=== PATIENT | female | born 1930 | race Caucasian/White ===

== ENCOUNTER 2016-11-06 18:16 | Emergency (ER) | payer MEDICARE, OTHER ==
[2016-11-06 18:29] VITALS: BP 140/72
[2016-11-06] MEDS ORDERED: Sodium Chloride 0.9% 10 ML Syringe FLUSH PRN (18:58)
--- NOTE | 2016-11-06 19:00 | EDM.PDOC ---
ED HPI GENERAL MEDICAL PROBLEM - General Chief Complaint: Cardiovascular Problem Stated Complaint: NECK PAIN/HEAD PAIN FAST HEARTBEAT Time Seen by Provider: 11/06/16 18:59 Source of Information: Reports: Patient History Limitations: Reports: No Limitations - History of Present Illness INITIAL COMMENTS - FREE TEXT/NARRATIVE: 86 year old female presents with her daughter for evaluation and treatment of chest palpitations. Reports these have been going on for the last 2-3 weeks and are becoming more frequent. She reports episodes of chest palpations lasting about 1 hour each. They resolve on their own. Last episode was about 2-3 hours prior to arrival in the ER. Prior to that she had an episode about 2-3 days ago. She has not been seen for these episodes as of yet. She describes these episodes as her "heart racing" and feeling weak. Denies any chest pain, shortness of breath, nausea, vomiting or syncope. Patient also complains of neck pain radiating into her occipital region of her head. Patient has a history of TIA and intercranial hemorrhage. She is currently on coumadin. Is scheduled to have her INR checked on Tuesday. Patient reports arthritis in her neck. She acknowledges that the neck pain is likely from the arthritis radiating into her head. She took a tylenol arthritis at 14: 00 today. headache Pain Score (Numeric/FACES): 3 - Related Data Allergies Allergy/AdvReac Type Severity Reaction Status Date / Time No Known Allergies Allergy Verified 11/06/16 18:30 Home Meds: Home Meds Acetaminophen [Tylenol Arthritis Pain] 2 tab PO BID PRN 04/25/14 [History] Calcium Carbonate/Vitamin D3 [Calcium 600 + Vit D Tablet] 1 tab PO DAILY [History] Furosemide [Lasix] 1 tab PO DAILY PRN 04/25/14 [History] LORazepam 1 tab PO BEDTIME PRN 04/25/14 [History] Levothyroxine [Synthroid] 75 mcg PO DAILY 04/25/14 [History] Lisinopril [Zestril] 1 tab PO DAILY 04/25/14 [History] Metoprolol Tartrate 1 tab PO DAILY 04/25/14 [History] Omeprazole 1 tab PO DAILY 04/25/14 [History] Propylene Glycol/Peg 400 [Systane 0.3-0.4% Eye Drops] 1 drop EYEBOTH BID [History] Simvastatin [Zocor] 1 tab PO BEDTIME 04/25/14 [History] carBAMazepine [Carbamazepine] 300 mg PO BID 04/25/14 [History] cycloSPORINE [Restasis] 1 drop EYEBOTH BID 04/25/14 [History] Warfarin [Coumadin] 0 mg PO DAILY 11/06/16 [History] traMADol [Ultram] 50 mg PO Q6H PRN #20 tablet 11/06/16 [Rx] Past Medical History HEENT History: Reports: Impaired Vision Cardiovascular History: Reports: Arrhythmia, Blood Clots/VTE/DVT, Hypertension Gastrointestinal History: Reports: GERD Musculoskeletal History: Reports: Arthritis Neurological History: Reports: TIA, Other (See Below) Other Neuro History: hx of "brain bleed" Psychiatric History: Reports: Anxiety Endocrine/Metabolic History: Reports: Hypothyroidism Hematologic History: Reports: Other (See Below) Other Hematologic History: is on coumadin - Past Surgical History HEENT Surgical History: Reports: Tonsillectomy Other HEENT Surgeries/Procedures: cornea surgery Female Surgical History: Reports: Breast Biopsy, Hysterectomy Social & Family History - Family History Family Medical History: Noncontributory - Tobacco Use Smoking Status *Q: Never Smoker Second Hand Smoke Exposure: No - Caffeine Use Caffeine Use: Reports: Coffee Caffeine Use Comment: states around 4 cups a day - Alcohol Use Days Per Week of Alcohol Use: 0 - Recreational Drug Use Recreational Drug Use: No ED ROS GENERAL - Review of Systems Review Of Systems: See Below Constitutional: Reports: Weakness Respiratory: Reports: Shortness of Breath Cardiovascular: Reports: Lightheadedness, Palpitations. Denies: Chest Pain, Syncope GI/Abdominal: Denies: Abdominal Pain, Nausea, Vomiting Musculoskeletal: Reports: Neck Pain Neurological: Reports: Headache. Denies: Syncope ED EXAM, GENERAL - Physical Exam Exam: See Below Exam Limited By: No Limitations General Appearance: Alert, WD/WN, No Apparent Distress Eye Exam: Bilateral Eye: EOMI, Normal Inspection, PERRL Ears: Normal External Exam Ear Exam: Bilateral Ear: TM normal Nose: Normal Inspection Throat/Mouth: Normal Inspection, Normal Lips, Normal Voice, No Airway Compromise Head: Atraumatic, Normocephalic Neck: Normal Inspection, Supple, Non-Tender, Limited Range of Motion Respiratory/Chest: No Respiratory Distress, Lungs Clear, Normal Breath Sounds Cardiovascular: Normal Peripheral Pulses, Regular Rate, Rhythm, No Murmur Peripheral Pulses: 2+: Radial (L), Radial (R), Dorsalis Pedis (L), Dorsalis Pedis (R) GI/Abdominal: Soft, Non-Tender Neurological: Alert, Oriented, Normal Cognition Psychiatric: Normal Affect, Normal Mood Skin Exam: Warm, Dry, Normal Color EKG INTERPRETATION EKG Date: 11/06/16 Time: 18:55 Rhythm: NSR Rate (Beats/Min): 80 [place]: Normal P-Wave: Present QRS: Normal ST-T: Normal QT: Normal EKG Interpretation Comments: NSR at 80 with frequent PACs. Diffuse early repolarization pattern. 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 No acute changes. Reviewed by myself and Dr. Sharma,. Course - Vital Signs Last Recorded V/S: Last Vital Signs Temp 36.5 C 11/06/16 18:18 Pulse 85 11/06/16 18:18 Resp 18 11/06/16 18:18 BP 140/72 11/06/16 18:18 Pulse Ox 98 11/06/16 18:18 - Orders/Labs/Meds Labs: Laboratory Tests 11/06/16 11/06/16 11/06/16 Range/Units 18:50 18:50 18:50 WBC 5.68 (3.98-10.04) K/mm3 RBC 3.95 L (3.98-5.22) M/mm3 Hgb 11.9 (11.2-15.7) gm/L Hct 36.9 (34.1-44.9) % MCV 93.4 (79.4-94.8) fl MCH 30.1 (25.6-32.2) pg MCHC 32.2 (32.2-35.5) g/dl RDW Std Deviation 47.5 H (36.4-46.3) fL Plt Count 181 L (182-369) K/mm3 MPV 9.6 (9.4-12.3) fl Neut % (Auto) 47.0 (34.0-71.1) % Lymph % (Auto) 29.0 (19.3-51.7) % Morris % (Auto) 17.1 H (4.7-12.5) % Eos % (Auto) 6.2 H (0.7-5.8) Baso % (Auto) 0.7 (0.1-1.2) % Neut # (Auto) 2.67 (1.56-6.13) K/mm3 Lymph # (Auto) 1.65 (1.18-3.74) K/mm3 Morris # (Auto) 0.97 H (0.24-0.36) K/mm3 Eos # (Auto) 0.35 (0.04-0.36) K/mm3 Baso # (Auto) 0.04 (0.01-0.08) K/mm3 Manual Slide Review Abnormal smear PT 16.3 H (8.0-13.0) SECONDS INR 1.46 APTT (22-36) SECONDS Sodium 142 (136-145) mEq/L Potassium 4.2 (3.5-5.1) mEq/L Chloride 108 H (98-107) mEq/L Carbon Dioxide 27 (21-32) mEq/L Anion Gap 11.2 (5-15) BUN 29 H (7-18) mg/dL Creatinine 1.2 H (0.55-1.02) mg/dL Est Cr Clr Drug Dosing 30.12 mL/min Estimated GFR (MDRD) 43 (>60) mL/min BUN/Creatinine Ratio 24.2 H (14-18) Glucose 91 (83-115) mg/dL Calcium 9.5 (8.5-10.1) mg/dL Total Bilirubin 0.3 (0.2-1.0) mg/dL AST 18 (15-37) U/L ALT 17 (14-59) U/L Alkaline Phosphatase 93 (46-116) U/L CK-MB (CK-2) (0-3.6) ng/ml Troponin I < 0.017 (0.00-0.056) ng/mL Son-S-Duboukovcql Pept (0-450) pg/mL Total Protein 6.5 (6.4-8.2) g/dl Albumin 3.4 (3.4-5.0) g/dl Globulin 3.1 gm/dL Albumin/Globulin Ratio 1.1 (1-2) TSH 3rd Generation 1.654 (0.358-3.74) uIU/mL 11/06/16 11/06/16 11/06/16 Range/Units 18:50 18:50 18:50 WBC (3.98-10.04) K/mm3 RBC (3.98-5.22) M/mm3 Hgb (11.2-15.7) gm/L Hct (34.1-44.9) % MCV (79.4-94.8) fl MCH (25.6-32.2) pg MCHC (32.2-35.5) g/dl RDW Std Deviation (36.4-46.3) fL Plt Count (182-369) K/mm3 MPV (9.4-12.3) fl Neut % (Auto) (34.0-71.1) % Lymph % (Auto) (19.3-51.7) % Morris % (Auto) (4.7-12.5) % Eos % (Auto) (0.7-5.8) Baso % (Auto) (0.1-1.2) % Neut # (Auto) (1.56-6.13) K/mm3 Lymph # (Auto) (1.18-3.74) K/mm3 Morris # (Auto) (0.24-0.36) K/mm3 Eos # (Auto) (0.04-0.36) K/mm3 Baso # (Auto) (0.01-0.08) K/mm3 Manual Slide Review PT (8.0-13.0) SECONDS INR APTT 31 (22-36) SECONDS Sodium (136-145) mEq/L Potassium (3.5-5.1) mEq/L Chloride (98-107) mEq/L Carbon Dioxide (21-32) mEq/L Anion Gap (5-15) BUN (7-18) mg/dL Creatinine (0.55-1.02) mg/dL Est Cr Clr Drug Dosing mL/min Estimated GFR (MDRD) (>60) mL/min BUN/Creatinine Ratio (14-18) Glucose (83-115) mg/dL Calcium (8.5-10.1) mg/dL Total Bilirubin (0.2-1.0) mg/dL AST (15-37) U/L ALT (14-59) U/L Alkaline Phosphatase (46-116) U/L CK-MB (CK-2) 0.6 (0-3.6) ng/ml Troponin I (0.00-0.056) ng/mL Tdf-G-Hbwanesxuor Pept 3227 H (0-450) pg/mL Total Protein (6.4-8.2) g/dl Albumin (3.4-5.0) g/dl Globulin gm/dL Albumin/Globulin Ratio (1-2) TSH 3rd Generation (0.358-3.74) uIU/mL Meds: Medications Discontinued Medications Generic Name Dose Route Start Last Admin Trade Name Freq PRN Reason Stop Dose Admin Sodium Chloride 10 ml 11/06/16 18:58 Saline Flush FLUSH ASDIRECTED PRN Keep Vein Open - Radiology Interpretation Free Text/Narrative:: CT of the head without contrast impression per vrad: no acute intracranial process CT of thecervical spine without contrast impression per vrad: No acute fracture or dislocation Chest xray shos cardiomegaly No acute intrathoracic process. CT Results Date: 11/06/16 - Re-Assessments/Exams Free Text/Narrative Re-Assessment/Exam: 11/06/16 20:55 Labs returned. I reviewed the labs, ekg and imaging with the patient and her daughter. I question if she is experiencing paroxysmal a.fib. She is currently on coumadin. I will have her call her coumadin clinic Tuesday with today's INR results for further management. In the meantime, we will obtain a 48 hour holter monitor in an attempt to catch one of the episodes. She is to return to the ER should her symptoms change or worsen. Follow-up with PCP. Discharge instructions as documented. Departure - Departure Time of Disposition: 20:55 Disposition: Home, Self-Care 01 Condition: Fair Clinical Impression: Cervical arthritis, Heart palpitations Prescriptions: traMADol [Ultram] 50 mg PO Q6H PRN #20 tablet PRN Reason: Pain Instructions: Arthritis, Palpitations, [id number] Referrals: Hillary Headley NP [Primary Care Provider] - Forms: ED Department Discharge Additional Instructions: Take the [id number] Tylenol for neck and headache relief. He may take 1 tramadol every 4-6 hours as needed for pain not relieved by the Tylenol. Do not drive or operative machinery within 12 hours taking the tramadol. Holter monitor for the next 48 hours. Follow-up with your primary care provider in about one week for test results. Continue with your current meds and current plan of care. Please return to the ER if your symptoms change or worsen.
--- NOTE | 2016-11-08 07:24 | CR ---
Chest: Frontal view of the chest was obtained. Comparison: No prior chest x-ray, previous chest CT of 04/25/14. Heart is enlarged. Tortuous thoracic aorta is seen. Lungs are clear with no acute infiltrates. Degenerative change is noted within the right shoulder with findings compatible with chronic rotator cuff tear. Scoliosis is present within the spine. Bony structures are osteoporotic. Impression: 1. Findings as noted above. Nothing acute is identified. Diagnostic code #2
--- NOTE | 2016-11-08 08:27 | CT ---
Head CT Technique: Multiple axial sections through the brain were obtained. Intravenous contrast was not utilized. Comparison: Previous head CT study of 08/22/11, previous MRI brain dated 06/08/11. Findings: Ventricles along with basal cisterns and sulci over the convexities are mildly prominent. Diminished density noted within the periventricular white matter compatible with small vessel ischemic demyelination change. 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 Old infarct appears to be present within the medial right occipital lobe which also appears to be stable. Previous craniotomy noted anteriorly. Incidental basal ganglia calcification is noted. No evidence of intracranial hemorrhage. No midline shift or mass effect is seen. Visualized sinuses are clear. No acute calvarial abnormality is seen. Impression: 1. Old infarcts as noted above. 2. Senescent changes seen with previous craniotomy. 3. No acute intracranial abnormality is identified. Diagnostic code #2 Agree with preliminary report issued by [facility] ([facility] preliminary report dictated on 11/06/16, 9:07 PM Central Time)
--- NOTE | 2016-11-08 08:29 | CT ---
CT cervical spine Technique: Multiple axial sections were obtained from above C1 inferiorly to the bottom of T2. Reconstructed sagittal and coronal images were reviewed. Findings: Severe disc space narrowing noted at C3-4, C4-C5, C5-C6, C6-C7 and C7-T1. Vertebral body heights are maintained. Degenerative change noted between the dens and anterior arch of C1. Minimal spondylolisthesis noted at C3-C4 due to degenerative apophyseal change. Other degenerative apophyseal change is seen throughout the cervical spine which is worse on the left side than on the right side. Vertebral bodies and posterior arches are intact with no fracture being seen. No bony central or bony neural foraminal stenosis is seen. Mild scoliosis is present. Mild scattered degenerative change seen throughout the uncovertebral joints. Impression: 1. Diffuse degenerative change and scoliosis. 2. Nothing acute is identified on CT study of the cervical spine. Diagnostic code #2 Agree with preliminary report issued by [facility] ([facility] preliminary report dictated on 11/06/16, 9:05 PM Central Time)
== END 2016-11-06 21:30 | disposition home or self-care (01) ==
LOC: JD.ED 18:16
DX: M46.92 Unspecified inflammatory spondylopathy, cervical region (principal); R00.2 Palpitations; K21.9 Gastro-esophageal reflux disease without esophagitis; E03.9 Hypothyroidism, unspecified; Z86.73 Personal history of transient ischemic attack (TIA), and cerebral infarction without residual deficits; Z98.890 Other specified postprocedural states; Z79.01 Long term (current) use of anticoagulants; Z79.899 Other long term (current) drug therapy; Z90.710 Acquired absence of both cervix and uterus; R06.02 Shortness of breath
CPT/HCPCS: 36415; 70450; 70450-26; 71010; 71010-26; 72125; 72125-26; 80053; 82553; 83880; 84443; 84484; 85025; 85610; 85730; 93005; 99284; 99285-25

== ENCOUNTER 2017-01-11 21:02 | Inpatient (IN) | payer MEDICARE, OTHER ==
--- NOTE | 2017-01-11 21:50 | EDM.PDOC ---
ED HPI GENERAL MEDICAL PROBLEM - General Chief Complaint: Neurological Problem Stated Complaint: [facility] Time Seen by Provider: 01/11/17 21:10 - History of Present Illness INITIAL COMMENTS - FREE TEXT/NARRATIVE: 86-year-old female presents emergency room with dizziness and generally not being herself. Patient was brought in by EMS from the assisted living center. Patient has been having increased weakness. This is according to her daughter who gives a history of progressive weakness over the last 3 weeks. Today the assisted living center she actually fell. She denies hitting her head in eyewitnesses a she did not hit her head. The patient seems to want to lean to the left. The patient complains of having an intermittent headache but is most concerned about her knees. She's unaware of any fevers or chills no nausea vomiting no chest pain chest pressure and generally denies recent sick. 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 - Related Data Allergies Allergy/AdvReac Type Severity Reaction Status Date / Time No Known Allergies Allergy Verified 01/11/17 21:11 Home Meds: Home Meds Acetaminophen [Tylenol Arthritis Pain] 2 tab PO Q8H PRN 04/25/14 [History] Furosemide [Lasix] 1 tab PO DAILY PRN 04/25/14 [History] Levothyroxine [Synthroid] 88 mcg PO DAILY 04/25/14 [History] Lisinopril [Zestril] 1 tab PO DAILY 04/25/14 [History] Simvastatin [Zocor] 1 tab PO BEDTIME 04/25/14 [History] carBAMazepine [Carbamazepine] 300 mg PO TID 04/25/14 [History] cycloSPORINE [Restasis] 1 drop EYEBOTH BID 04/25/14 [History] Warfarin [Coumadin] 2.5 mg PO ASDIRECTED 11/06/16 [History] traMADol [Ultram] 50 mg PO Q6H PRN #20 tablet 11/06/16 [Rx] Diltiazem [Cardizem CD] 120 mg PO DAILY 01/11/17 [History] Gabapentin [Neurontin] 100 mg PO DAILY 01/11/17 [History] Metoprolol Succinate [Toprol XL] 50 mg PO DAILY 01/11/17 [History] Phenytoin 100 mg PO BID 01/11/17 [History] Warfarin [Coumadin] 1.25 mg PO ASDIRECTED 01/11/17 [History] Past Medical History HEENT History: Reports: Impaired Vision Cardiovascular History: Reports: Arrhythmia, Blood Clots/VTE/DVT, High Cholesterol, Hypertension, Other (See Below) Other Cardiovascular History: mitral valve insufficiency, atrial flutter Gastrointestinal History: Reports: GERD Genitourinary History: Reports: Other (See Below) Other Genitourinary History: dysuria Musculoskeletal History: Reports: Arthritis, Neck Pain, Chronic, Osteoarthritis , Osteoporosis, Other (See Below) Other Musculoskeletal History: degenerative joint disease, inflammatory spondylopathy Neurological History: Reports: TIA, Other (See Below) Other Neuro History: hx of "brain bleed", trigeminal neuralgia, states "fake seizures", written dx of epilepsy Psychiatric History: Reports: Anxiety Endocrine/Metabolic History: Reports: Hypothyroidism Hematologic History: Reports: Other (See Below) Other Hematologic History: is on coumadin - Past Surgical History HEENT Surgical History: Reports: Tonsillectomy Other HEENT Surgeries/Procedures: cornea surgery Female Surgical History: Reports: Breast Biopsy, Hysterectomy Musculoskeletal Surgical History: Reports: Knee Replacement Social & Family History - Family History Family Medical History: Noncontributory - Tobacco Use Smoking Status *Q: Never Smoker Second Hand Smoke Exposure: No - Caffeine Use Caffeine Use: Reports: Coffee Caffeine Use Comment: states around 4 cups a day - Alcohol Use Days Per Week of Alcohol Use: 0 - Recreational Drug Use Recreational Drug Use: No ED ROS GENERAL - Review of Systems Review Of Systems: See Below Constitutional: Denies: Fever, Chills HEENT: Denies: Dental Pain, Ear Pain, Eye Pain, Rhinitis, Sinus Problem, Vision Change Respiratory: Reports: No Symptoms Cardiovascular: Reports: No Symptoms GI/Abdominal: Reports: No Symptoms : Denies: Dysuria, Frequency, Pain, Urgency Musculoskeletal: Reports: Shoulder Pain, Leg Pain, Other (She has chronic arthritis) Neurological: Reports: Confusion, Dizziness, Headache ED EXAM, NEURO - Physical Exam Exam: See Below Exam Limited By: No Limitations General Appearance: Alert, No Apparent Distress Eye Exam: Bilateral Eye: EOMI, Normal Inspection, PERRL Ears: Normal External Exam, Normal Canal, Hearing Grossly Normal, Normal TMs Nose: Normal Inspection, Normal Mucosa, No Blood Throat/Mouth: Normal Inspection, Normal Lips, Normal Oropharynx, Normal Voice, No Airway Compromise Head Exam: Atraumatic, Normocephalic Neck: Normal Inspection, Supple, Non-Tender, Full Range of Motion. No: Lymphadenopathy (L), Lymphadenopathy (R) Respiratory/Chest: No Respiratory Distress, Lungs Clear, Normal Breath Sounds Cardiovascular: Regular Rate, Rhythm, No Edema, No Murmur GI/Abdominal: Normal Bowel Sounds, Soft, Non-Tender Neurological: Alert, Normal Mood/Affect, Other (Sarah coma score 15) Back Exam: Normal Inspection. No: CVA Tenderness (L), CVA Tenderness (R) Extremities: Normal Inspection, No Pedal Edema Skin Exam: Warm, Dry, Intact Course - Vital Signs Last Recorded V/S: Last Vital Signs Temp 36.2 C 01/11/17 21:07 Pulse 77 01/11/17 21:07 Resp 18 01/11/17 21:07 BP 135/71 01/11/17 21:07 Pulse Ox 97 01/11/17 21:07 Orthostatic Blood Pressure [ 133/82 Standing] Orthostatic Blood Pressure [ 136/68 Sitting] Orthostatic Blood Pressure [ 135/71 Supine] - Orders/Labs/Meds Orders: Active Orders 24 hr Category Date Time Status Admission Status [Patient Status] [ADT] Routine ADT 01/11/17 23:25 Active Antiembolic Devices [RC] PER UNIT ROUTINE Care 01/11/17 23:14 Active Cardiac Monitoring [RC] CONTINUOUS Care 01/11/17 23:11 Active EKG Documentation Completion [RC] STAT Care 01/11/17 21:37 Active Height and Weight [RC] DAILY Care 01/11/17 23:10 Active Intake and Output [RC] QSHIFT Care 01/11/17 23:11 Active Oxygen Therapy [RC] PRN Care 01/11/17 23:10 Active RT Aerosol Therapy [RC] ASDIRECTED Care 01/11/17 23:15 Active Up With Assistance [RC] ASDIRECTED Care 01/11/17 23:10 Active VTE/DVT Education [RC] PER UNIT ROUTINE Care 01/11/17 23:10 Active Vital Signs [RC] Q4H Care 01/11/17 23:10 Active Consult to Case Management [CONS] Routine Cons 01/11/17 23:15 Active Consult to Marine Gear Keeper [CONS] Routine Cons 01/11/17 23:15 Active Consult to Spiritual Care [CONS] Routine Cons 01/11/17 23:15 Active OT Evaluation and Treatment [CONS] Routine Cons 01/11/17 23:15 Active PT Evaluation and Treatment [CONS] Routine Cons 01/11/17 23:15 Active Chest 1V Frontal [CR] Stat Exams 01/11/17 21:36 Taken Head wo Cont [CT] Stat Exams 01/11/17 21:36 Taken BASIC METABOLIC PANEL,BMP [CHEM] AM Lab 01/12/17 05:11 Ordered BASIC METABOLIC PANEL,BMP [CHEM] AM Lab 01/13/17 05:11 Ordered BASIC METABOLIC PANEL,BMP [CHEM] AM Lab 01/14/17 05:11 Ordered BASIC METABOLIC PANEL,BMP [CHEM] AM Lab 01/15/17 05:11 Ordered CBC WITH AUTO DIFF [HEME] AM Lab 01/12/17 05:11 Ordered MAGNESIUM [CHEM] AM Lab 01/12/17 05:11 Ordered MAGNESIUM [CHEM] AM Lab 01/13/17 05:11 Ordered MAGNESIUM [CHEM] AM Lab 01/14/17 05:11 Ordered MAGNESIUM [CHEM] AM Lab 01/15/17 05:11 Ordered Acetaminophen [Tylenol] Med 01/11/17 23:10 Ordered 650 mg PO Q4H PRN Acetaminophen/HYDROcodone [[place] 325-5 MG] Med 01/11/17 23:10 Ordered 1 tab PO Q4H PRN Albuterol/Ipratropium [DuoNeb 3.0-0.5 MG/3 ML] Med 01/11/17 23:10 Ordered 3 ml NEB Q4H PRN Bisacodyl [Dulcolax] Med 01/11/17 23:10 Ordered 5 mg PO DAILY PRN Diltiazem [Cardizem CD] Med 01/12/17 09:00 Ordered 120 mg PO DAILY Docusate Sodium [Colace] Med 01/11/17 23:10 Ordered 100 mg PO BID PRN Docusate Sodium/Sennosides [Senna Plus] Med 01/11/17 23:10 Ordered 1 tab PO BID PRN Furosemide [Lasix] Med 01/11/17 23:17 Ordered DOSE mg PO DAILY PRN Gabapentin [Neurontin] Med 01/12/17 09:00 Ordered 100 mg PO DAILY HYDROmorphone [Dilaudid] Med 01/11/17 23:10 Ordered 0.25 mg IVPUSH Q2H PRN LORazepam [Ativan] Med 01/11/17 23:10 Ordered 0.25 mg IV Q6H PRN LORazepam [Ativan] Med 01/11/17 23:16 Ordered 2 mg IVPUSH Q4H PRN Levothyroxine [Synthroid] Med 01/12/17 09:00 Ordered 88 mcg PO DAILY Lisinopril [Prinivil] Med 01/12/17 09:00 Ordered DOSE mg PO DAILY Magnesium Rep Pharmacy to Dose [Pharmacy to Dose - Med 01/11/17 23:30 Ordered Magnesium Replacement] 1 dose .XX ASDIRECTED Metoprolol Succinate [Toprol XL] Med 01/12/17 09:00 Ordered 50 mg PO DAILY Metoprolol Tartrate [Lopressor] Med 01/11/17 23:16 Ordered 5 mg IVPUSH Q4H PRN Ondansetron [Zofran] Med 01/11/17 23:10 Ordered 4 mg IV Q6H PRN Phenytoin Med 01/12/17 09:00 Ordered 100 mg PO BID Polyethylene Glycol 3350 [MiraLAX] Med 01/11/17 23:10 Ordered 17 gm PO DAILY PRN Potassium Rep Pharmacy to Dose [Pharmacy to Dose - Med 01/11/17 23:30 Ordered Potassium Replacement] 1 dose .XX ASDIRECTED Promethazine [Phenergan] 12.5 mg Med 01/11/17 23:10 Ordered Sodium Chloride 0.9% [Normal Saline] 50 ml IV Q6H Simvastatin [Zocor] Med 01/12/17 21:00 Ordered DOSE mg PO BEDTIME Temazepam [Restoril] Med 01/11/17 23:10 Ordered 7.5 mg PO BEDTIME PRN carBAMazepine [TEGretol] Med 01/12/17 09:00 Ordered 300 mg PO TID cycloSPORINE Med 01/12/17 09:00 Ordered 1 drop EYEBOTH BID hydrALAZINE [Apresoline] Med 01/11/17 23:16 Ordered 10 mg IVPUSH Q4H PRN Precautions [COMM] Routine Oth 01/11/17 23:19 Ordered Sequential Compression Device [OM.PC] Per Unit Routine Oth 01/11/17 23:14 Ordered Resuscitation Status Routine Resus Stat 01/11/17 23:10 Ordered Medication Orders Acetaminophen (Tylenol) 650 mg PO Q4H PRN PRN Reason: Pain (Mild 1-3)/fever Hydrocodone Bitart/Acetaminophen ([place] 325-5 Mg) 1 tab PO Q4H PRN PRN Reason: Pain (moderate 4-6) Albuterol/Ipratropium (Duoneb 3.0-0.5 Mg/3 Ml) 3 ml NEB Q4H PRN PRN Reason: Shortness Of Breath/wheezing Bisacodyl (Dulcolax) 5 mg PO DAILY PRN PRN Reason: Constipation Carbamazepine (Tegretol) 300 mg PO TID MICHELLE Diltiazem HCl (Cardizem Cd) 120 mg PO DAILY [facility] Docusate Sodium (Colace) 100 mg PO BID PRN PRN Reason: Constipation Furosemide (Lasix) mg PO DAILY PRN PRN Reason: Edema Gabapentin (Neurontin) 100 mg PO DAILY [facility] Hydralazine HCl (Apresoline) 10 mg IVPUSH Q4H PRN PRN Reason: Hypertension Hydromorphone HCl (Dilaudid) 0.25 mg IVPUSH Q2H PRN PRN Reason: Pain (severe 7-10) Promethazine HCl 12.5 mg/ (Sodium Chloride) 50.5 mls @ 100 mls/hr IV Q6H PRN PRN Reason: Nausea/Vomiting Levothyroxine Sodium (Synthroid) 88 mcg PO DAILY [facility] Lisinopril (Prinivil) mg PO DAILY [facility] Lorazepam (Ativan) 0.25 mg IV Q6H PRN PRN Reason: Anxiety Lorazepam (Ativan) 2 mg IVPUSH Q4H PRN PRN Reason: Seizures Magnesium Sulfate (Pharmacy To Dose - Magnesium Replacement) 1 dose .XX ASDIRECTED [facility] Metoprolol Succinate (Toprol Xl) 50 mg PO DAILY [facility] Metoprolol Tartrate (Lopressor) 5 mg IVPUSH Q4H PRN PRN Reason: Tachycardia Non-Formulary Medication (Cyclosporine) 1 drop EYEBOTH BID [facility] Ondansetron HCl (Zofran) 4 mg IV Q6H PRN PRN Reason: Nausea/Vomiting Phenytoin Sodium (Phenytoin) 100 mg PO BID [facility] Polyethylene Glycol (Miralax) 17 gm PO DAILY PRN PRN Reason: Constipation Potassium Chloride (Pharmacy To Dose - Potassium Replacement) 1 dose .XX ASDIRECTED MICHELLE Senna/Docusate Sodium (Senna Plus) 1 tab PO BID PRN PRN Reason: Constipation Simvastatin (Zocor) mg PO BEDTIME MICHELLE Temazepam (Restoril) 7.5 mg PO BEDTIME PRN PRN Reason: Sleep Labs: Laboratory Tests 01/11/17 01/11/17 01/11/17 Range/Units 21:50 21:50 21:50 WBC 6.22 (3.98-10.04) K/mm3 RBC 3.66 L (3.98-5.22) M/mm3 Hgb 10.8 L (11.2-15.7) gm/L Hct 33.9 L (34.1-44.9) % MCV 92.6 (79.4-94.8) fl MCH 29.5 (25.6-32.2) pg MCHC 31.9 L (32.2-35.5) g/dl RDW Std Deviation 49.9 H (36.4-46.3) fL Plt Count 214 (182-369) K/mm3 MPV 9.7 (9.4-12.3) fl Neutrophils % (Manual) 50 (40-60) % Band Neutrophils % 0 (0-10) % Lymphocytes % (Manual) 25 (20-40) % Atypical Lymphs % 0 % Monocytes % (Manual) 20 H (2-10) % Eosinophils % (Manual) 5 (0.7-5.8) % Basophils % (Manual) 0 L (0.1-1.2) Platelet Estimate Adequate Plt Morphology Comment Normal RBC Morph Comment Normal PT 13.0 (8.0-13.0) SECONDS INR 1.18 APTT (22-36) SECONDS Sodium 139 (136-145) mEq/L Potassium 4.5 (3.5-5.1) mEq/L Chloride 105 (98-107) mEq/L Carbon Dioxide 26 (21-32) mEq/L Anion Gap 12.5 (5-15) BUN 22 H (7-18) mg/dL Creatinine 1.2 H (0.55-1.02) mg/dL Est Cr Clr Drug Dosing 27.84 mL/min Estimated GFR (MDRD) 43 (>60) mL/min BUN/Creatinine Ratio 18.3 H (14-18) Glucose 105 (83-115) mg/dL Calcium 9.2 (8.5-10.1) mg/dL Total Bilirubin 0.3 (0.2-1.0) mg/dL AST 39 H (15-37) U/L ALT 45 (14-59) U/L Alkaline Phosphatase 120 H (46-116) U/L Total Protein 6.3 L (6.4-8.2) g/dl Albumin 3.2 L (3.4-5.0) g/dl Globulin 3.1 gm/dL Albumin/Globulin Ratio 1.0 (1-2) TSH 3rd Generation (0.358-3.74) uIU/mL Urine Color (Yellow) Urine Appearance (Clear) Urine pH (5.0-8.0) Ur Specific [place] (1.005-1.030) Urine Protein (Negative) Urine Glucose (UA) (Negative) Urine Ketones (Negative) Urine Occult Blood (Negative) Urine Nitrite (Negative) Urine Bilirubin (Negative) Urine Urobilinogen (0.2-1.0) Ur Leukocyte Esterase (Negative) Urine RBC (0-5) /hpf Urine WBC (0-5) /hpf Ur Epithelial Cells (0-5) /hpf Urine Bacteria (FEW) /hpf Urine Mucus (FEW) /hpf Phenytoin (10.0-20.0) ug/mL Carbamazepine (4.0-12.0) ug/mL 01/11/17 01/11/17 01/11/17 Range/Units 21:50 21:50 22:00 WBC (3.98-10.04) K/mm3 RBC (3.98-5.22) M/mm3 Hgb (11.2-15.7) gm/L Hct (34.1-44.9) % MCV (79.4-94.8) fl MCH (25.6-32.2) pg MCHC (32.2-35.5) g/dl RDW Std Deviation (36.4-46.3) fL Plt Count (182-369) K/mm3 MPV (9.4-12.3) fl Neutrophils % (Manual) (40-60) % Band Neutrophils % (0-10) % Lymphocytes % (Manual) (20-40) % Atypical Lymphs % % Monocytes % (Manual) (2-10) % Eosinophils % (Manual) (0.7-5.8) % Basophils % (Manual) (0.1-1.2) Platelet Estimate Plt Morphology Comment RBC Morph Comment PT (8.0-13.0) SECONDS INR APTT 31 (22-36) SECONDS Sodium (136-145) mEq/L Potassium (3.5-5.1) mEq/L Chloride (98-107) mEq/L Carbon Dioxide (21-32) mEq/L Anion Gap (5-15) BUN (7-18) mg/dL Creatinine (0.55-1.02) mg/dL Est Cr Clr Drug Dosing mL/min Estimated GFR (MDRD) (>60) mL/min BUN/Creatinine Ratio (14-18) Glucose (83-115) mg/dL Calcium (8.5-10.1) mg/dL Total Bilirubin (0.2-1.0) mg/dL AST (15-37) U/L ALT (14-59) U/L Alkaline Phosphatase (46-116) U/L Total Protein (6.4-8.2) g/dl Albumin (3.4-5.0) g/dl Globulin gm/dL Albumin/Globulin Ratio (1-2) TSH 3rd Generation 2.956 (0.358-3.74) uIU/mL Urine Color Yellow (Yellow) Urine Appearance Clear (Clear) Urine pH 6.5 (5.0-8.0) Ur Specific [place] 1.010 (1.005-1.030) Urine Protein Negative (Negative) Urine Glucose (UA) Negative (Negative) Urine Ketones Negative (Negative) Urine Occult Blood Negative (Negative) Urine Nitrite Negative (Negative) Urine Bilirubin Negative (Negative) Urine Urobilinogen 0.2 (0.2-1.0) Ur Leukocyte Esterase Negative (Negative) Urine RBC Not seen (0-5) /hpf Urine WBC 0-5 (0-5) /hpf Ur Epithelial Cells 0-5 (0-5) /hpf Urine Bacteria Occasional (FEW) /hpf Urine Mucus Not seen (FEW) /hpf Phenytoin 16.3 (10.0-20.0) ug/mL Carbamazepine 10.8 (4.0-12.0) ug/mL Meds: Medications Generic Name Dose Route Start Last Admin Trade Name Freq PRN Reason Stop Dose Admin Acetaminophen 650 mg 01/11/17 23:10 Tylenol PO Q4H PRN Pain (Mild 1-3)/fever Hydrocodone Bitart/Acetaminophen 1 tab 01/11/17 23:10 [place] 325-5 Mg PO Q4H PRN Pain (moderate 4-6) Albuterol/Ipratropium 3 ml 01/11/17 23:10 Duoneb 3.0-0.5 Mg/3 Ml NEB Q4H PRN Shortness Of Breath/wheezing Bisacodyl 5 mg 01/11/17 23:10 Dulcolax PO DAILY PRN Constipation Carbamazepine 300 mg 01/12/17 09:00 Tegretol PO TID [facility] Diltiazem HCl 120 mg 01/12/17 09:00 Cardizem Cd PO DAILY [facility] Docusate Sodium 100 mg 01/11/17 23:10 Colace PO BID PRN Constipation Furosemide mg 01/11/17 23:17 Lasix PO DAILY PRN Edema Gabapentin 100 mg 01/12/17 09:00 Neurontin PO DAILY [facility] Hydralazine HCl 10 mg 01/11/17 23:16 Apresoline IVPUSH Q4H PRN Hypertension Hydromorphone HCl 0.25 mg 01/11/17 23:10 Dilaudid IVPUSH Q2H PRN Pain (severe 7-10) Promethazine HCl 12.5 mg/ 50.5 mls @ 100 mls/hr 01/11/17 23:10 Sodium Chloride IV Q6H PRN Nausea/Vomiting Levothyroxine Sodium 88 mcg 01/12/17 09:00 Synthroid PO DAILY [facility] Lisinopril mg 01/12/17 09:00 Prinivil PO DAILY [facility] Lorazepam 0.25 mg 01/11/17 23:10 Ativan IV Q6H PRN Anxiety Lorazepam 2 mg 01/11/17 23:16 Ativan IVPUSH Q4H PRN Seizures Magnesium Sulfate 1 dose 01/11/17 23:30 Pharmacy To Dose - Magnesium Replacement .XX ASDIRECTED [facility] Metoprolol Succinate 50 mg 01/12/17 09:00 Toprol Xl PO DAILY [facility] Metoprolol Tartrate 5 mg 01/11/17 23:16 Lopressor IVPUSH Q4H PRN Tachycardia Non-Formulary Medication 1 drop 01/12/17 09:00 Cyclosporine EYEBOTH BID MICHELLE Ondansetron HCl 4 mg 01/11/17 23:10 Zofran IV Q6H PRN Nausea/Vomiting Phenytoin Sodium 100 mg 01/12/17 09:00 Phenytoin PO BID MICHELLE Polyethylene Glycol 17 gm 01/11/17 23:10 Miralax PO DAILY PRN Constipation Potassium Chloride 1 dose 01/11/17 23:30 Pharmacy To Dose - Potassium Replacement .XX ASDIRECTED MICHELLE Senna/Docusate Sodium 1 tab 01/11/17 23:10 Senna Plus PO BID PRN Constipation Simvastatin mg 01/12/17 21:00 Zocor PO BEDTIME MICHELLE Temazepam 7.5 mg 01/11/17 23:10 Restoril PO BEDTIME PRN Sleep - Re-Assessments/Exams Free Text/Narrative Re-Assessment/Exam: 01/11/17 23:08 CT evaluation was done which is suggestive of a couple of acute subdural hematomas first one is 5 mm in the left temporoparietal region the second 7 mm in the right parietal area she's got mild cortical atrophy present no mass effect or midline shift she does have some calcifications in the basal ganglia she's had bilateral bur holes from prior bleed. Patient's case to be discussed with Dr. Thibodeaux neurosurgery in [place] who recommends repeat CT in 2 weeks then follow-up in the office. Observation and neuro check they can be done here with every 4 neuro checks no anticoagulation no aspirin since her INR is 1.1 no Coumadin reversal. Case discussed with Dr. Nesbitt who will accept the patient Departure - Departure Time of Disposition: 23:11 Disposition: Admitted As Inpatient 66 Clinical Impression: Subdural hematoma, acute - Discharge Information - My Orders Last 24 Hours: My Active Orders 01/11/17 21:36 Chest 1V Frontal [CR] Stat Head wo Cont [CT] Stat 01/11/17 21:37 EKG Documentation Completion [RC] STAT 01/11/17 23:25 Admission Status [Patient Status] [ADT] Routine - Assessment/Plan Last 24 Hours: My Active Orders 01/11/17 21:36 Chest 1V Frontal [CR] Stat Head wo Cont [CT] Stat 01/11/17 21:37 EKG Documentation Completion [RC] STAT 01/11/17 23:25 Admission Status [Patient Status] [ADT] Routine
[2017-01-11] MEDS ORDERED: Albuterol/Ipratropium 3.0-0.5 MG/3 ML Neb Soln NEB PRN (23:10)
[2017-01-11] MEDS ORDERED: Docusate Sodium 100 MG Cap PO PRN (23:10)
[2017-01-11] MEDS ORDERED: Promethazine 12.5 MG in Sodium Chloride 0.9% 50 ML IV PRN (23:10)
[2017-01-11] MEDS ORDERED: Polyethylene Glycol 3350 Powder 17 GM Packet PO PRN (23:10)
[2017-01-11] MEDS ORDERED: Acetaminophen/HYDROcodone 325-5 MG Tab PO PRN (23:10)
--- NOTE | 2017-01-11 23:10 | PCM.HP ---
H&P History of Present Illness - General Date of Service: 01/11/17 Admit Problem/Dx: Brain Bleed Source of Information: Patient, Family, Old Records, Provider, RN, RN Notes Reviewed History Limitations: Reports: Altered Mental Status, Physical Impairment - History of Present Illness Initial Comments - Free Text/Narative: This is an 86-year-old elderly white female with past medical history of Impaired Vision, HTN, HLD, Atrial Fibrillation via Holter Monitor , HR controlled on Warfarin, Mitral Valve Insufficiency, GERD, Osteoporosis, Hypothyroidism, Trigerminal Neuralgia, Hx/o DVT/TIA, Hx/o Brain Bleed, Hx/o "Fake Seizures"/Epilepsy, and Anxiety who was brought in the emergency department with complaints of dizziness, "not being herself" and progressive generalized weakness. 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 Per ED notes, patient has been having progressive weakness over the past 3 weeks. Today, she fell at the assisted living facility (she just moved in there about a week ago) but denies hitting her head. No prodromal symptoms. No loss of bowel or bladder control. She does however complaints of a headache. She denies any systemic infection. Patient carries a history of brain bleed in the past and currently on warfarin for stroke prophylaxis. Her initial workup in emergency department shows a CBC remarkable for hemoglobin of 10.8 and hematocrit of 32.9. Her INR is 1.18. Her chemistry is remarkable for BUN of 22, creatinine of 1.2, AST of 39, alkaline phosphatase of 120, total protein of 6.3, and albumin of 2.2. Her phenytoin and carbamazepine levels are within normal limits. Her UA is negative for urinary tract infection. Her chest x-ray shows no acute abnormal finding. 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 Patient is being admitted for brain bleed and generalized weakness. She is DNR/ DNI. - Related Data Allergies/Adverse Reactions: Allergies Allergy/AdvReac Type Severity Reaction Status Date / Time Cephalosporins AdvReac Nausea Verified 01/12/17 07:09 Home Medications: Home Meds Acetaminophen [Tylenol Arthritis Pain] 2 tab PO Q8H PRN 04/25/14 [History] Furosemide [Lasix] 20 mg PO DAILY PRN 04/25/14 [History] Levothyroxine [Synthroid] 88 mcg PO DAILY 04/25/14 [History] Lisinopril [Zestril] 20 mg PO DAILY 04/25/14 [History] Simvastatin [Zocor] 20 mg PO BEDTIME 04/25/14 [History] carBAMazepine [Carbamazepine] 300 mg PO TID 04/25/14 [History] cycloSPORINE [Restasis] 1 drop EYEBOTH BID 04/25/14 [History] Warfarin [Coumadin] 2.5 mg PO 1700 11/06/16 [History] traMADol [Ultram] 50 mg PO Q6H PRN #20 tablet 11/06/16 [Rx] Diltiazem [Cardizem CD] 120 mg PO DAILY 01/11/17 [History] Gabapentin [Neurontin] 100 mg PO BID 01/11/17 [History] Metoprolol Succinate [Toprol XL] 50 mg PO DAILY 01/11/17 [History] Phenytoin 100 mg PO BID 01/11/17 [History] Warfarin [Coumadin] 1.25 mg PO 1700 01/11/17 [History] Past Medical History HEENT History: Reports: Impaired Vision Cardiovascular History: Reports: Arrhythmia, Blood Clots/VTE/DVT, High Cholesterol, Hypertension, Other (See Below) Other Cardiovascular History: mitral valve insufficiency, atrial flutter Gastrointestinal History: Reports: GERD Genitourinary History: Reports: Other (See Below) Other Genitourinary History: dysuria Musculoskeletal History: Reports: Arthritis, Neck Pain, Chronic, Osteoarthritis , Osteoporosis, Other (See Below) Other Musculoskeletal History: degenerative joint disease, inflammatory spondylopathy Neurological History: Reports: TIA, Other (See Below) Other Neuro History: hx of "brain bleed", trigeminal neuralgia, states "fake seizures", written dx of epilepsy Psychiatric History: Reports: Anxiety Endocrine/Metabolic History: Reports: Hypothyroidism Hematologic History: Reports: Other (See Below) Other Hematologic History: is on coumadin - Past Surgical History HEENT Surgical History: Reports: Tonsillectomy Other HEENT Surgeries/Procedures: cornea surgery Female Surgical History: Reports: Breast Biopsy, Hysterectomy Musculoskeletal Surgical History: Reports: Knee Replacement Social & Family History - Family History Family Medical History: Noncontributory - Tobacco Use Smoking Status *Q: Never Smoker Second Hand Smoke Exposure: No - Caffeine Use Caffeine Use: Reports: Coffee Caffeine Use Comment: states around 4 cups a day - Alcohol Use Days Per Week of Alcohol Use: 0 - Recreational Drug Use Recreational Drug Use: No H&P Review of Systems - Review of Systems: Review Of Systems: See Below General: Reports: Weakness. Denies: Fever, Chills, Malaise, Fatigue HEENT: Reports: No Symptoms Pulmonary: Denies: Shortness of Breath Cardiovascular: Denies: Chest Pain, Palpitations, Lightheadedness, Syncope Gastrointestinal: Reports: Flatus. Denies: Abdominal Pain, Nausea, Vomiting Genitourinary: Reports: No Symptoms Musculoskeletal: Reports: Shoulder Pain, Leg Pain Skin: Denies: Cyanosis, Pallor, Diaphoresis Psychiatric: Denies: Depression, Anxiety, Hallucinations Neurological: Reports: Confusion, Dizziness, Headache, Difficulty Walking, Weakness, Gait Disturbance. Denies: Numbness, Seizure, Syncope, Tingling, Trouble Speaking, Change in Speech Hematologic/Lymphatic: Reports: No Symptoms Immunologic: Reports: No Symptoms Exam - Exam Exam: See Below - Vital Signs Vital Signs: Last Vital Signs Temp 36.2 C 01/11/17 21:07 Pulse 77 01/11/17 21:07 Resp 18 01/11/17 21:07 BP 135/71 01/11/17 21:07 Pulse Ox 97 01/11/17 21:07 Orthostatic Blood Pressure [ 133/82 Standing] Orthostatic Blood Pressure [ 136/68 Sitting] Orthostatic Blood Pressure [ 135/71 Supine] Weight: 56.245 kg - Exam General: Alert, Cooperative. No: Mild Distress HEENT: Conjunctiva Clear, Hearing Intact, Mucosa Moist & Calvary, Normal Nasal Septum, Pupils Equal, Pupils Reactive Neck: Supple, Trachea Midline Lungs: Clear to Auscultation, Normal Respiratory Effort Cardiovascular: Regular Rate, Regular Rhythm GI/Abdominal Exam: Normal Bowel Sounds, Soft, Non-Tender, No Organomegaly, No Distention, No Abnormal Bruit (Female) Exam: Deferred Rectal (Female) Exam: Deferred Back Exam: Normal Inspection, Decreased Range of Motion Extremities: Normal Inspection, Normal Range of Motion, Non-Tender, No Pedal Edema, Normal Capillary Refill Peripheral Pulses: 2+: Posterior Tibial (L), Posterior Tibial (R), Dorsalis Pedis (L), Dorsalis Pedis (R) Skin: Warm, Dry, Intact Neuro Extensive - Motor, Sensory, Reflexes: CN II-XII Intact (limited due to AMS ), Abnormal Gait Psychiatric: Alert, Normal Affect, Normal Mood - Patient Data Lab Results Last 24 hrs: Laboratory Results - last 24 hr 01/11/17 01/11/17 01/11/17 Range/Units 21:50 21:50 21:50 WBC 6.22 (3.98-10.04) K/mm3 RBC 3.66 L (3.98-5.22) M/mm3 Hgb 10.8 L (11.2-15.7) gm/L Hct 33.9 L (34.1-44.9) % MCV 92.6 (79.4-94.8) fl MCH 29.5 (25.6-32.2) pg MCHC 31.9 L (32.2-35.5) g/dl RDW Std Deviation 49.9 H (36.4-46.3) fL Plt Count 214 (182-369) K/mm3 MPV 9.7 (9.4-12.3) fl Neutrophils % (Manual) 50 (40-60) % Band Neutrophils % 0 (0-10) % Lymphocytes % (Manual) 25 (20-40) % Atypical Lymphs % 0 % Monocytes % (Manual) 20 H (2-10) % Eosinophils % (Manual) 5 (0.7-5.8) % Basophils % (Manual) 0 L (0.1-1.2) Platelet Estimate Adequate Plt Morphology Comment Normal RBC Morph Comment Normal PT 13.0 (8.0-13.0) SECONDS INR 1.18 APTT (22-36) SECONDS Sodium 139 (136-145) mEq/L Potassium 4.5 (3.5-5.1) mEq/L Chloride 105 (98-107) mEq/L Carbon Dioxide 26 (21-32) mEq/L Anion Gap 12.5 (5-15) BUN 22 H (7-18) mg/dL Creatinine 1.2 H (0.55-1.02) mg/dL Est Cr Clr Drug Dosing 27.84 mL/min Estimated GFR (MDRD) 43 (>60) mL/min BUN/Creatinine Ratio 18.3 H (14-18) Glucose 105 (83-115) mg/dL Calcium 9.2 (8.5-10.1) mg/dL Total Bilirubin 0.3 (0.2-1.0) mg/dL AST 39 H (15-37) U/L ALT 45 (14-59) U/L Alkaline Phosphatase 120 H (46-116) U/L Total Protein 6.3 L (6.4-8.2) g/dl Albumin 3.2 L (3.4-5.0) g/dl Globulin 3.1 gm/dL Albumin/Globulin Ratio 1.0 (1-2) TSH 3rd Generation (0.358-3.74) uIU/mL Urine Color (Yellow) Urine Appearance (Clear) Urine pH (5.0-8.0) Ur Specific [place] (1.005-1.030) Urine Protein (Negative) Urine Glucose (UA) (Negative) Urine Ketones (Negative) Urine Occult Blood (Negative) Urine Nitrite (Negative) Urine Bilirubin (Negative) Urine Urobilinogen (0.2-1.0) Ur Leukocyte Esterase (Negative) Urine RBC (0-5) /hpf Urine WBC (0-5) /hpf Ur Epithelial Cells (0-5) /hpf Urine Bacteria (FEW) /hpf Urine Mucus (FEW) /hpf Phenytoin (10.0-20.0) ug/mL Carbamazepine (4.0-12.0) ug/mL 01/11/17 01/11/17 01/11/17 Range/Units 21:50 21:50 22:00 WBC (3.98-10.04) K/mm3 RBC (3.98-5.22) M/mm3 Hgb (11.2-15.7) gm/L Hct (34.1-44.9) % MCV (79.4-94.8) fl MCH (25.6-32.2) pg MCHC (32.2-35.5) g/dl RDW Std Deviation (36.4-46.3) fL Plt Count (182-369) K/mm3 MPV (9.4-12.3) fl Neutrophils % (Manual) (40-60) % Band Neutrophils % (0-10) % Lymphocytes % (Manual) (20-40) % Atypical Lymphs % % Monocytes % (Manual) (2-10) % Eosinophils % (Manual) (0.7-5.8) % Basophils % (Manual) (0.1-1.2) Platelet Estimate Plt Morphology Comment RBC Morph Comment PT (8.0-13.0) SECONDS INR APTT 31 (22-36) SECONDS Sodium (136-145) mEq/L Potassium (3.5-5.1) mEq/L Chloride (98-107) mEq/L Carbon Dioxide (21-32) mEq/L Anion Gap (5-15) BUN (7-18) mg/dL Creatinine (0.55-1.02) mg/dL Est Cr Clr Drug Dosing mL/min Estimated GFR (MDRD) (>60) mL/min BUN/Creatinine Ratio (14-18) Glucose (83-115) mg/dL Calcium (8.5-10.1) mg/dL Total Bilirubin (0.2-1.0) mg/dL AST (15-37) U/L ALT (14-59) U/L Alkaline Phosphatase (46-116) U/L Total Protein (6.4-8.2) g/dl Albumin (3.4-5.0) g/dl Globulin gm/dL Albumin/Globulin Ratio (1-2) TSH 3rd Generation 2.956 (0.358-3.74) uIU/mL Urine Color Yellow (Yellow) Urine Appearance Clear (Clear) Urine pH 6.5 (5.0-8.0) Ur Specific [place] 1.010 (1.005-1.030) Urine Protein Negative (Negative) Urine Glucose (UA) Negative (Negative) Urine Ketones Negative (Negative) Urine Occult Blood Negative (Negative) Urine Nitrite Negative (Negative) Urine Bilirubin Negative (Negative) Urine Urobilinogen 0.2 (0.2-1.0) Ur Leukocyte Esterase Negative (Negative) Urine RBC Not seen (0-5) /hpf Urine WBC 0-5 (0-5) /hpf Ur Epithelial Cells 0-5 (0-5) /hpf Urine Bacteria Occasional (FEW) /hpf Urine Mucus Not seen (FEW) /hpf Phenytoin 16.3 (10.0-20.0) ug/mL Carbamazepine 10.8 (4.0-12.0) ug/mL Result Diagrams: 01/12/17 05:45 01/12/17 05:45 *Q Meaningful Use (ADM) - VTE *Q VTE Criteria *Q: - Stroke *Q Stroke Criteria *Q: - AMI *Q AMI Criteria *Q: Problem List Initiated/Reviewed/Updated: Yes Orders Last 24hrs: Active Orders 24 hr Category Date Time Status EKG Documentation Completion [RC] STAT Care 01/11/17 21:37 Active Chest 1V Frontal [CR] Stat Exams 01/11/17 21:36 Taken Head wo Cont [CT] Stat Exams 01/11/17 21:36 Taken Assessment/Plan Comment:: Assessment/Plan: Acute: AMS/ENcephalopathy - She is on high dose anticonvulsant medications - Gabapentin, 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 - Unclear if she has seizure disorder according to her daughter - She does not follow a neurologist - Hold off on tapering her meds until her brain bleed improves Subdural Hematoma - S/p Fall - Has hx/o brain bleed in the past - Head CT scan confirms it: 5 mm in the left temporo-parietal region and 7 mm in the right parietal region - Risk factor: On Warfarin and Seizure - ED provider spoke to Dr. Thibodeaux: recommend CT scan in 2 weeks then follow up in the office - Neuro check Q4 - Hold off Warfarin and ASA Generalized Weakness - Likely 2.2 Above - PT/OT eval - Thyroid panel and Vit D level Subtherapeutic INR - 1.18 - Hold off Warfarin - Recommend switching to DOACs (defer to PCP after discharge) High Fall Risk and Polypharmacy Chronic: Impaired Vision HTN HLD Atrial Fibrillation via Holter Monitor , HR controlled on Warfarin Mitral Valve Insufficiency GERD OA/DJD Osteoporosis Hypothyroidism Trigerminal Neuralgia, Continue Carbamezapin Inflammatory Spondylopathy Hx/o DVT/TIA Hx/o Brain Bleed Hx/o "Fake Seizures"/Epilepsy/Seizure Disorder Anxiety Plan: Admit to Med-[facility] with Tele Routine AM Labs Resume Home Meds except Warfarin Neuro check Q4 PT/OT consult DVT PPx: SCDs Obtain Records from PCP's office Fall/Seizure Precautions CM/SW for d/c planning Code Status: DNR/DNI
[2017-01-11] MEDS ORDERED: LORazepam 2 MG/ML MDV IVPUSH PRN (23:16)
[2017-01-11] MEDS ORDERED: hydrALAZINE 20 MG/ML SDV IVPUSH PRN (23:16)
[2017-01-11] MEDS ORDERED: Furosemide 20 MG Tab PO PRN (23:17)
[2017-01-11] MEDS: Acetaminophen 325 MG Tab PO PRN (23:57)
[2017-01-12] MEDS: Levothyroxine 88 MCG Tab PO SCH (06:01)
--- NOTE | 2017-01-12 07:08 | CR ---
Chest: Frontal view of the chest was obtained. Comparison: Prior chest x-ray of 11/06/16. Heart is enlarged. Pulmonary vessels are slightly increased. Lungs otherwise are clear. Scoliosis is noted within the spine with degenerative change. Degenerative change is seen within both shoulders with findings of chronic rotator cuff tears. Osteopenia is seen. Impression: 1. Cardiomegaly and mild pulmonary vascular congestion. 2. Other incidental findings as noted above. Diagnostic code #3
--- NOTE | 2017-01-12 07:08 | CT ---
Head CT Technique: Multiple axial sections through the brain were obtained. Intravenous contrast was not utilized. Findings: Small subacute subdural hematoma identified within the left temporal parietal region with thickness of around 4 mm. Small acute subdural hematoma is noted within the right parietal region measuring around 7 mm. Subacute bilateral subdural hematomas are noted over both parietal convexities with thickness of about 1 cm. Subacute small subdural hematoma seen within the left frontal region. There is thickening of portions of the interhemispheric falx felt compatible with additional small subdural hematoma with a small amount of blood extending over the cerebellar tentorium. No parenchymal hemorrhage is seen. 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 Diminished density is noted within the periventricular white matter compatible with small vessel ischemic demyelination change. Basal ganglia calcification noted. Bilateral héctor holes are seen. Mild mucosal thickening is seen within the sphenoid and ethmoid sinuses. No acute calvarial abnormality is seen. Impression: 1. Acute small subdural hematoma along the interhemispheric falx and extending along the cerebellar tentorium. Small acute subdural hematoma noted within the right parietal region. 2. Subacute subdural collections overlying both parietal convexities with thickness of 1 cm. Subacute subdural blood also seen within the left frontal and temporal parietal region with thickness of 4 mm. 3. Senescent change as noted above. Previous surgery. Other incidental findings. Diagnostic code #5 Agree with preliminary report issued by [facility] , with additional small areas of subdural blood as described above, ([facility] preliminary report dictated on 01/11/17, 11:35 PM Central Time)
[2017-01-12] MEDS ORDERED: Gabapentin 100 MG Cap PO SCH (09:00)
[2017-01-12] MEDS: carBAMazepine 100 MG Tab.Chew PO SCH ×2 (09:10→16:28)
[2017-01-12] MEDS: Metoprolol Succinate 50 MG Tab.ER PO SCH (09:10)
[2017-01-12] MEDS: Phenytoin 100 MG Cap.ER PO SCH ×2 (09:11→20:09)
[2017-01-12] MEDS: Lisinopril 20 MG Tab PO SCH (09:11)
[2017-01-12] MEDS: Diltiazem 120 MG Cap.CD PO SCH (09:11)
[2017-01-12] MEDS: CYCLOSPORINE EYEBOTH SCH ×2 (09:12→20:10)
--- NOTE | 2017-01-12 16:22 | MR ---
MRI brain Technique: T1 sagittal; T2, T2 FLAIR, diffusion and T1 axial T2 gradient echo also was obtained. T1 FLAIR coronal images were obtained. Comparison: Prior head CT study of 01/11/17. Findings: Bilateral subdural hematomas are identified. Greatest thickness is 1 cm on the right and 8 mm on the left. Extra-axial abnormality is seen overlying the right frontal convexity. This measures about 1.6 cm in size and is felt to represent additional more nodular area of subacute hemorrhage. There is a small diffusion abnormality being seen overlying the right parietal convexity likely due to a very minimal cortical infarct. No other diffusion abnormalities are seen. Scattered areas of increased signal seen within the periventricular and subcortical white matter compatible with small vessel ischemic demyelination change. No midline shift or mass effect is seen. Impression: 1. Bilateral subdural hematomas with thickness on the right up to 1 cm in thickness on the left up to 8 mm. 2. Small focal extra-axial hemorrhage which appears subacute overlying the right frontal convexity measuring about 1.6 cm in size. 3. Minimal and fairly acute cortical infarct within the right parietal convexity. Note: If patient's clinical status remains stable, follow-up noncontrast MRI could be considered and 48 hours to confirm stability. Diagnostic code #5
--- NOTE | 2017-01-12 16:38 | PCM.PN ---
- General Info Date of Service: 01/12/17 Admission Dx/Problem (Free Text): Brain Bleed Subjective Update: Follow up Functional Status: Reports: Pain Controlled, Tolerating Diet, Urinating. Denies : Ambulating, New Symptoms - Review of Systems General: Denies: Fever, Weakness, Fatigue, Malaise, Chills HEENT: Reports: No Symptoms Pulmonary: Denies: Shortness of Breath Cardiovascular: Denies: Chest Pain Gastrointestinal: Denies: Abdominal Pain, Nausea, Vomiting Genitourinary: Reports: No Symptoms Musculoskeletal: Reports: No Symptoms Skin: Reports: No Symptoms Neurological: Reports: Confusion, Trouble Speaking, Gait Disturbance. Denies: Headache, Seizure, Difficulty Walking, Weakness Psychiatric: Denies: Depression, Anxiety, Agitation, Hallucinations Systems Review Comment:: No significant overnight issues. She has difficulty articulating words and still has baseline confusion. Her words at times are gibberish or non-sensible. Her follow up neuro exam is about the same. No report of seizure like activities. Her morning labs are stable. Her CE x 2 are within normal limits. - Patient Data Vitals - Most Recent: Last Vital Signs Temp 36.2 C 01/12/17 16:18 Pulse 63 01/12/17 16:05 Resp 14 01/12/17 16:05 BP 131/67 01/12/17 16:05 Pulse Ox 97 01/12/17 16:05 Weight - Most Recent: 56.245 kg I&O - Last 24 Hours: Intake & Output 01/12/17 01/12/17 01/12/17 06:59 14:59 22:59 Intake Total 50 340 800 Output Total 100 600 Balance -50 340 200 Lab Results Last 24 Hours: Laboratory Results - last 24 hr 01/11/17 01/12/17 01/12/17 Range/Units 23:55 01:00 05:45 WBC 5.15 (3.98-10.04) K/mm3 RBC 3.40 L (3.98-5.22) M/mm3 Hgb 10.2 L (11.2-15.7) gm/L Hct 31.4 L (34.1-44.9) % MCV 92.4 (79.4-94.8) fl MCH 30.0 (25.6-32.2) pg MCHC 32.5 (32.2-35.5) g/dl RDW Std Deviation 48.8 H (36.4-46.3) fL Plt Count 197 (182-369) K/mm3 MPV 10.1 (9.4-12.3) fl Neut % (Auto) 41.3 (34.0-71.1) % Lymph % (Auto) 36.5 (19.3-51.7) % Weld % (Auto) 14.4 H (4.7-12.5) % Eos % (Auto) 6.8 H (0.7-5.8) Baso % (Auto) 0.6 (0.1-1.2) % Neut # (Auto) 2.13 (1.56-6.13) K/mm3 Lymph # (Auto) 1.88 (1.18-3.74) K/mm3 Weld # (Auto) 0.74 H (0.24-0.36) K/mm3 Eos # (Auto) 0.35 (0.04-0.36) K/mm3 Baso # (Auto) 0.03 (0.01-0.08) K/mm3 Sodium (136-145) mEq/L Potassium (3.5-5.1) mEq/L Chloride (98-107) mEq/L Carbon Dioxide (21-32) mEq/L Anion Gap (5-15) BUN (7-18) mg/dL Creatinine (0.55-1.02) mg/dL Est Cr Clr Drug Dosing mL/min Estimated GFR (MDRD) (>60) mL/min BUN/Creatinine Ratio (14-18) Glucose (83-115) mg/dL Calcium (8.5-10.1) mg/dL Magnesium (1.8-2.4) mg/dl CK-MB (CK-2) 0.9 (0-3.6) ng/ml Troponin I < 0.017 (0.00-0.056) ng/mL MRSA (PCR) Negative 01/12/17 Range/Units 05:45 WBC (3.98-10.04) K/mm3 RBC (3.98-5.22) M/mm3 Hgb (11.2-15.7) gm/L Hct (34.1-44.9) % MCV (79.4-94.8) fl MCH (25.6-32.2) pg MCHC (32.2-35.5) g/dl RDW Std Deviation (36.4-46.3) fL Plt Count (182-369) K/mm3 MPV (9.4-12.3) fl Neut % (Auto) (34.0-71.1) % Lymph % (Auto) (19.3-51.7) % Weld % (Auto) (4.7-12.5) % Eos % (Auto) (0.7-5.8) Baso % (Auto) (0.1-1.2) % Neut # (Auto) (1.56-6.13) K/mm3 Lymph # (Auto) (1.18-3.74) K/mm3 Weld # (Auto) (0.24-0.36) K/mm3 Eos # (Auto) (0.04-0.36) K/mm3 Baso # (Auto) (0.01-0.08) K/mm3 Sodium 142 (136-145) mEq/L Potassium 4.3 (3.5-5.1) mEq/L Chloride 108 H (98-107) mEq/L Carbon Dioxide 26 (21-32) mEq/L Anion Gap 12.3 (5-15) BUN 20 H (7-18) mg/dL Creatinine 1.1 H (0.55-1.02) mg/dL Est Cr Clr Drug Dosing 30.37 mL/min Estimated GFR (MDRD) 47 (>60) mL/min BUN/Creatinine Ratio 18.2 H (14-18) Glucose 85 (83-115) mg/dL Calcium 9.1 (8.5-10.1) mg/dL Magnesium 1.8 (1.8-2.4) mg/dl CK-MB (CK-2) 0.8 (0-3.6) ng/ml Troponin I < 0.017 (0.00-0.056) ng/mL MRSA (PCR) Med Orders - Current: Current Medications Acetaminophen (Tylenol) 650 mg PO Q4H PRN PRN Reason: Pain (Mild 1-3)/fever Last Admin: 01/11/17 23:57 Dose: 650 mg Hydrocodone Bitart/Acetaminophen ([place] 325-5 Mg) 1 tab PO Q4H PRN PRN Reason: Pain (moderate 4-6) Albuterol/Ipratropium (Duoneb 3.0-0.5 Mg/3 Ml) 3 ml NEB Q4H PRN PRN Reason: Shortness Of Breath/wheezing Bisacodyl (Dulcolax) 5 mg PO DAILY PRN PRN Reason: Constipation Carbamazepine (Tegretol) 300 mg PO TID [facility] Last Admin: 01/12/17 16:28 Dose: 300 mg Diltiazem HCl (Cardizem Cd) 120 mg PO DAILY [facility] Last Admin: 01/12/17 09:11 Dose: 120 mg Docusate Sodium (Colace) 100 mg PO BID PRN PRN Reason: Constipation Furosemide (Lasix) 20 mg PO DAILY PRN PRN Reason: Edema Gabapentin (Neurontin) 100 mg PO DAILY [facility] Last Admin: 01/12/17 09:10 Dose: 100 mg Hydralazine HCl (Apresoline) 10 mg IVPUSH Q4H PRN PRN Reason: Hypertension Hydromorphone HCl (Dilaudid) 0.25 mg IVPUSH Q2H PRN PRN Reason: Pain (severe 7-10) Promethazine HCl 12.5 mg/ (Sodium Chloride) 50.5 mls @ 100 mls/hr IV Q6H PRN PRN Reason: Nausea/Vomiting Levothyroxine Sodium (Synthroid) 88 mcg PO ACBRK [facility] Last Admin: 01/12/17 06:01 Dose: 88 mcg Lisinopril (Prinivil) 20 mg PO DAILY [facility] Last Admin: 01/12/17 09:11 Dose: 20 mg Lorazepam (Ativan) 0.25 mg IV Q6H PRN PRN Reason: Anxiety Lorazepam (Ativan) 2 mg IVPUSH Q4H PRN PRN Reason: Seizures Magnesium Sulfate (Pharmacy To Dose - Magnesium Replacement) 1 dose .XX ASDIRECTED [facility] Metoprolol Succinate (Toprol Xl) 50 mg PO DAILY [facility] Last Admin: 01/12/17 09:10 Dose: 50 mg Metoprolol Tartrate (Lopressor) 5 mg IVPUSH Q4H PRN PRN Reason: Tachycardia Ondansetron HCl (Zofran) 4 mg IV Q6H PRN PRN Reason: Nausea/Vomiting Cyclosporine ( Restasis) Ophth Solution 0 each EYEBOTH BID [facility] Last Admin: 01/12/17 09:12 Dose: Not Given Phenytoin Sodium (Phenytoin) 100 mg PO BID [facility] Last Admin: 01/12/17 09:11 Dose: 100 mg Polyethylene Glycol (Miralax) 17 gm PO DAILY PRN PRN Reason: Constipation Potassium Chloride (Pharmacy To Dose - Potassium Replacement) 1 dose .XX ASDIRECTED [facility] Senna/Docusate Sodium (Senna Plus) 1 tab PO BID PRN PRN Reason: Constipation Simvastatin (Zocor) 20 mg PO BEDTIME [facility] Temazepam (Restoril) 7.5 mg PO BEDTIME PRN PRN Reason: Sleep - Exam General: Cooperative (somewhat), No Acute Distress, Other (Awake) HEENT: Pupils Equal, Pupils Reactive, Mucous Membr. Moist/[place] Neck: Supple, Trachea Midline, No JVD Lungs: Clear to Auscultation, Normal Respiratory Effort Cardiovascular: Irregular Rhythm GI/Abdominal Exam: Normal Bowel Sounds, Soft, Non-Tender, No Organomegaly, No Distention (Female) Exam: Deferred Back Exam: Normal Inspection, Decreased Range of Motion Extremities: Normal Inspection, Non-Tender, No Pedal Edema, Normal Capillary Refill Peripheral Pulses: 2+: Dorsalis Pedis (L), Dorsalis Pedis (R) Skin: Warm, Dry, Intact Neurological: No New Focal Deficit. No: Normal Gait, Normal Speech Psy/Mental Status: Alert, Normal Affect, Normal Mood. No: Anxious, Suicidal Ideation, Withdrawal Symptoms - Problem List Review Problem List Initiated/Reviewed/Updated: Yes - My Orders Last 24 Hours: My Active Orders 01/11/17 23:31 Neuro Check [RC] Q4HR 01/12/17 01:35 Communication Order [RC] QSPRN 01/12/17 Dinner Heart Healthy Diet [DIET] - Plan Plan:: Assessment/Plan: Acute: AMS/Encephalopathy, Unchanged - She is on high dose anticonvulsant medications - Gabapentin, 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 - Unclear if she has seizure disorder according to her daughter - She does not follow a neurologist - Will adjust anticonvulsant meds Subdural Hematoma - S/p Fall - Has hx/o brain bleed in the past - Head CT scan confirms it: 5 mm in the left temporo-parietal region and 7 mm in the right parietal region - Risk factor: On Warfarin and Seizure - ED provider spoke to Dr. Thibodeaux: recommend CT scan in 2 weeks then follow up in the office - Neuro check Q4 - Hold off Warfarin and ASA Generalized Weakness - Likely 2.2 Above - Continue PT/OT - Thyroid panel: normal - Vit D level pending Subtherapeutic INR - 1.18 - Cotninue to hold off Warfarin/ASA due to brain bleed - Recommend switching to DOACs (defer to PCP after discharge) High Fall Risk and Polypharmacy Chronic: Impaired Vision HTN HLD Atrial Fibrillation via Holter Monitor , HR controlled on Warfarin Mitral Valve Insufficiency GERD OA/DJD Osteoporosis Hypothyroidism Trigerminal Neuralgia, Continue Carbamezapin Inflammatory Spondylopathy Hx/o DVT/TIA Hx/o Brain Bleed Hx/o "Fake Seizures"/Epilepsy Anxiety Plan: She is clinically stable Routine AM Labs Continue Neuro check Q4 and PT/OT DVT PPx: SCDs Fall/Seizure Precautions CM/SW for d/c planning Code Status: DNR/DNI Prognosis is guarded
[2017-01-12] MEDS ORDERED: carBAMazepine 100 MG Tab.Chew PO SCH (17:06)
--- NOTE | 2017-01-12 19:35 | PCM.SN ---
- Free Text/Narrative Note: I was informed this afternoon, patient speech was abnormal and more confused than usual but the rest of her neuro exam was unchanged. She appeared to be slightly worse than this morning at the time of my examination. Her stat brain MRI showed slight increased size in her brain bleed. Discussed abnormal findings with family (daughter and son-in-law) and educated them about patient's neurologic symptoms similar to stroke. They were warned, patient is high risk for stroke due to her chronic atrial fibrillation.
[2017-01-12] MEDS: Simvastatin 20 MG Tab PO SCH (20:09)
[2017-01-12] MEDS: Temazepam 7.5 MG Cap PO PRN (20:10)
[2017-01-12] MEDS: HYDROmorphone 0.5 MG/0.5 ML Syringe IVPUSH PRN (21:46)
[2017-01-13] MEDS: Levothyroxine 88 MCG Tab PO SCH (05:36)
[2017-01-13] MEDS ORDERED: Magnesium Oxide 400 MG Tab PO ONE (08:00)
[2017-01-13] MEDS: Ondansetron 4 MG/2 ML SDV IV PRN (10:50)
[2017-01-13] MEDS: HYDROmorphone 0.5 MG/0.5 ML Syringe IVPUSH PRN ×2 (10:56→19:09)
[2017-01-13] MEDS ORDERED: Magnesium Sulfate/Water 2 GM in Premix Bag 1 BAG IV ONE (11:00)
--- NOTE | 2017-01-13 11:25 | PCM.PN ---
- General Info Date of Service: 01/13/17 Admission Dx/Problem (Free Text): Brain Bleed Chelsea is seen this morning. She is resting in bed, awake and alert. She is disorientated, confused. Does not know date, time, place or situation. She is able to tell me her daughter's name is "Kelly". She is verbal but most of her speech is not discernable. At one point she does state "my head hurts". She gets anxious on occasion during out visit today. Speech therapy did see patient this morning with recommendations for NPO at this time mainly due to altered mental status and confusion. Functional Status: Reports: Ambulating (2-3 assist). Denies: Tolerating Diet ( NPO today) - Review of Systems General: Reports: Weakness. Denies: Fever HEENT: Reports: Headaches Pulmonary: Denies: Shortness of Breath (no apparent SOB) Neurological: Reports: Confusion, Trouble Speaking, Difficulty Walking, Weakness , Change in Speech (ROS difficult to obtain due to patients confusion/AMS and speech that is garbled and difficult to discern.) - Patient Data Vitals - Most Recent: Last Vital Signs Temp 97.5 F 01/13/17 09:30 Pulse 84 01/13/17 09:33 Resp 16 01/13/17 09:30 BP 139/76 01/13/17 09:33 Pulse Ox 95 01/13/17 09:33 Weight - Most Recent: 129 lb 9.6 oz I&O - Last 24 Hours: Intake & Output 01/12/17 01/13/17 01/13/17 22:59 06:59 14:59 Intake Total 800 400 Output Total 600 Balance 200 400 Lab Results Last 24 Hours: Laboratory Results - last 24 hr 01/13/17 Range/Units 05:30 Sodium 138 (136-145) mEq/L Potassium 4.7 (3.5-5.1) mEq/L Chloride 103 (98-107) mEq/L Carbon Dioxide 25 (21-32) mEq/L Anion Gap 14.7 (5-15) BUN 17 (7-18) mg/dL Creatinine 0.8 (0.55-1.02) mg/dL Est Cr Clr Drug Dosing 41.76 mL/min Estimated GFR (MDRD) > 60 (>60) mL/min BUN/Creatinine Ratio 21.3 H (14-18) Glucose 93 (83-115) mg/dL Calcium 9.1 (8.5-10.1) mg/dL Magnesium 1.7 L (1.8-2.4) mg/dl Med Orders - Current: Current Medications Acetaminophen (Tylenol) 650 mg PO Q4H PRN PRN Reason: Pain (Mild 1-3)/fever Last Admin: 01/11/17 23:57 Dose: 650 mg Hydrocodone Bitart/Acetaminophen ([place] 325-5 Mg) 1 tab PO Q4H PRN PRN Reason: Pain (moderate 4-6) Albuterol/Ipratropium (Duoneb 3.0-0.5 Mg/3 Ml) 3 ml NEB Q4H PRN PRN Reason: Shortness Of Breath/wheezing Bisacodyl (Dulcolax) 5 mg PO DAILY PRN PRN Reason: Constipation Carbamazepine (Tegretol Tab) 200 mg PO TID [facility] Diltiazem HCl (Cardizem Cd) 120 mg PO DAILY [facility] Last Admin: 01/12/17 09:11 Dose: 120 mg Docusate Sodium (Colace) 100 mg PO BID PRN PRN Reason: Constipation Furosemide (Lasix) 20 mg PO DAILY PRN PRN Reason: Edema Hydralazine HCl (Apresoline) 10 mg IVPUSH Q4H PRN PRN Reason: Hypertension Hydromorphone HCl (Dilaudid) 0.25 mg IVPUSH Q2H PRN PRN Reason: Pain (severe 7-10) Last Admin: 01/13/17 10:56 Dose: 0.25 mg Promethazine HCl 12.5 mg/ (Sodium Chloride) 50.5 mls @ 100 mls/hr IV Q6H PRN PRN Reason: Nausea/Vomiting Magnesium Sulfate 2 gm/ Premix 50 mls @ 25 mls/hr IV ONETIME ONE Stop: 01/13/17 12:59 Levothyroxine Sodium (Synthroid) 88 mcg PO ACBRK [facility] Last Admin: 01/13/17 05:36 Dose: Not Given Lisinopril (Prinivil) 20 mg PO DAILY [facility] Last Admin: 01/12/17 09:11 Dose: 20 mg Lorazepam (Ativan) 0.25 mg IV Q6H PRN PRN Reason: Anxiety Lorazepam (Ativan) 2 mg IVPUSH Q4H PRN PRN Reason: Seizures Magnesium Sulfate (Pharmacy To Dose - Magnesium Replacement) 1 dose .XX ASDIRECTED [facility] Metoprolol Succinate (Toprol Xl) 50 mg PO DAILY [facility] Last Admin: 01/12/17 09:10 Dose: 50 mg Metoprolol Tartrate (Lopressor) 5 mg IVPUSH Q4H PRN PRN Reason: Tachycardia Ondansetron HCl (Zofran) 4 mg IV Q6H PRN PRN Reason: Nausea/Vomiting Last Admin: 01/13/17 10:50 Dose: 4 mg Cyclosporine ( Restasis) Ophth Solution 0 each EYEBOTH BID [facility] Last Admin: 01/12/17 20:10 Dose: Not Given Phenytoin Sodium (Phenytoin) 100 mg PO BID [facility] Last Admin: 01/12/17 20:09 Dose: 100 mg Polyethylene Glycol (Miralax) 17 gm PO DAILY PRN PRN Reason: Constipation Potassium Chloride (Pharmacy To Dose - Potassium Replacement) 1 dose .XX ASDIRECTED [facility] Senna/Docusate Sodium (Senna Plus) 1 tab PO BID PRN PRN Reason: Constipation Simvastatin (Zocor) 20 mg PO BEDTIME [facility] Last Admin: 01/12/17 20:09 Dose: 20 mg Temazepam (Restoril) 7.5 mg PO BEDTIME PRN PRN Reason: Sleep Last Admin: 01/12/17 20:10 Dose: 7.5 mg Discontinued Medications Carbamazepine (Tegretol) 300 mg PO TID [facility] Last Admin: 01/12/17 16:28 Dose: 300 mg Carbamazepine (Tegretol) 200 mg PO TID [facility] Last Admin: 01/12/17 20:09 Dose: 200 mg Gabapentin (Neurontin) 100 mg PO DAILY [facility] Last Admin: 01/12/17 09:10 Dose: 100 mg Magnesium Oxide (Magnesium Oxide) 400 mg PO ONETIME ONE Stop: 01/13/17 08:01 - Exam Quality Assessment: DVT Prophylaxis General: Alert, Cooperative HEENT: Pupils Equal, EOMI Neck: Supple, No JVD Lungs: Clear to Auscultation, Normal Respiratory Effort Cardiovascular: Irregular Rhythm GI/Abdominal Exam: Normal Bowel Sounds, Soft (Female) Exam: Deferred Extremities: Normal Inspection, No Pedal Edema, Normal Capillary Refill Peripheral Pulses: 2+: Radial (L), Radial (R), Dorsalis Pedis (L), Dorsalis Pedis (R) Neurological: Strength Equal Bilateral (3/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 ). No: Normal Speech ( garbled, I am able to discern "Kelly" as daughters name, "my head hurts", "thank you", "what happened", she is clear when stating yes or no but does not answer questions appropriately using these words. ) Psy/Mental Status: Alert - Problem List & Annotations (1) Altered mental status SNOMED Code(s): 222461528 Code(s): R41.82 - ALTERED MENTAL STATUS, UNSPECIFIED Status: Acute Priority: High Current Visit: Yes Qualifiers: Altered mental status type: disorientation Qualified Code(s): R41.0 - Disorientation, unspecified (2) Subdural hematoma, acute SNOMED Code(s): 15276803 Code(s): I62.01 - NONTRAUMATIC ACUTE SUBDURAL HEMORRHAGE Status: Acute Current Visit: Yes (3) Fall SNOMED Code(s): 6686876 Code(s): W19.XXXA - UNSPECIFIED FALL, INITIAL ENCOUNTER Status: Acute Priority: High Current Visit: Yes Qualifiers: Encounter type: initial encounter Qualified Code(s): W19.XXXA - Unspecified fall, initial encounter (4) A-fib SNOMED Code(s): 64490736 Code(s): I48.91 - UNSPECIFIED ATRIAL FIBRILLATION Status: Chronic Priority: High Current Visit: Yes Qualifiers: Atrial fibrillation type: unspecified Qualified Code(s): I48.91 - Unspecified atrial fibrillation - Problem List Review Problem List Initiated/Reviewed/Updated: Yes - My Orders Last 24 Hours: My Active Orders 01/13/17 08:13 Consult to Speech Language Pathology [[employer] Evaluation and Treatment] [CONS] Routine 01/13/17 Lunch NPO [Nothing Per Oral Diet] [DIET] - Plan Plan:: Assessment/Plan: Acute: AMS/Encephalopathy, Unchanged -- fluctuant as earlier in the day she was not responsive to PT and would barely open her eyes. She was very interactive with me today. - [employer] for swallow eval this am with recommendations for NPO at this time; will continue to assess - She is on high dose anticonvulsant medications [employer]AD=Gabapentin, 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 - Unclear if she has seizure disorder according to her daughter - She does not follow a Neurologist - Will adjust anticonvulsant meds Subdural Hematoma - S/p Fall - Has hx/o brain bleed in the past - Head CT scan confirms it: 5 mm in the left temporo-parietal region and 7 mm in the right parietal region - Risk factor: On Warfarin, fall and ? Seizure disorder, hx of CVA - ED provider spoke to Dr. Schmidt, Neurosurgeon: recommend CT scan in 2 weeks then follow up in the office - Neuro check Q4 - Hold off Warfarin and ASA Generalized Weakness - Likely 2.2 Above - Continue PT/OT - Thyroid panel: normal - Vit D level pending Subtherapeutic INR - 1.18 - Cotninue to hold off Warfarin/ASA due to brain bleed - Recommend switching to DOACs (defer to PCP after discharge) High Fall Risk and Polypharmacy Chronic: Impaired Vision HTN HLD Atrial Fibrillation via Holter Monitor , HR controlled on Warfarin Mitral Valve Insufficiency GERD OA/DJD Osteoporosis Hypothyroidism Trigerminal Neuralgia, Continue Carbamezapin Inflammatory Spondylopathy Hx/o DVT/TIA Hx/o Brain Bleed Hx/o "Fake Seizures"/Epilepsy Anxiety Plan: She is clinically stable--mental status is fluctuant. Routine AM Labs Continue Neuro check Q4 [employer]/PT/OT to cont DVT PPx: SCDs GI prophylax Fall/Seizure Precautions CM/SW for d/c planning Code Status: DNR/DNI Prognosis is guarded at this time. Family is aware as Dr. Nesbitt had long discussion with them last night about MRI results and continued monitoring.
[2017-01-13] MEDS: Diltiazem 120 MG Cap.CD PO SCH (12:14)
[2017-01-13] MEDS: Lisinopril 20 MG Tab PO SCH (12:14)
[2017-01-13] MEDS: Phenytoin 100 MG Cap.ER PO SCH ×2 (12:14→21:13)
[2017-01-13] MEDS: CYCLOSPORINE EYEBOTH SCH ×2 (12:15→21:15)
[2017-01-13] MEDS: Metoprolol Succinate 50 MG Tab.ER PO SCH (12:15)
[2017-01-13] MEDS: carBAMazepine 200 MG Tab PO SCH ×3 (12:15→21:13)
--- NOTE | 2017-01-13 14:31 | PCM.SN ---
- Free Text/Narrative Note: Reviewed medical charts form her PCPs office. Per medical records, patient carries the following medical diagnoses of osteoarthritis, bilateral bunions, TIA, bilateral cataracts, clotting disorder, dizziness, atrial fibrillation on warfarin, history of DVT on warfarin since 08/20/2008, venous embolism and thrombosis, nonspecific abnormal findings on radiological and examinations of the lungs, Bone and articular cartilage disorder, rib pain, history of a non- traumatic subdural hematoma, history of femur fracture 2 with ruddy placement, fuch's endothelial dystrophy, hyperlipidemia, hypertension, hypothyroidism, mitral regurgitation, osteoporosis, rotator cuff syndrome of the right shoulder , tonsillitis, trigeminal neuralgia, chronic sinusitis and insomnia. She also has a history of IVC filter placement due to blood clot in 2003. Additionally, she carries a history of brain surgery with subsequent seizure disorder. On her last visit in July 2016, she was found low on her serum dilantin level. At that time, her dose was increased with a plan for re-check in one month. At this point, her prognosis is guarded. She has both brain bleed and stroke.
[2017-01-13] MEDS: Simvastatin 20 MG Tab PO SCH (21:14)
[2017-01-13] MEDS: Temazepam 7.5 MG Cap PO PRN (21:40)
[2017-01-13] MEDS: LORazepam 2 MG/ML MDV IV PRN (23:42)
[2017-01-14] MEDS: Levothyroxine 88 MCG Tab PO SCH (06:39)
[2017-01-14] MEDS: Diltiazem 120 MG Cap.CD PO SCH (08:18)
[2017-01-14] MEDS: Phenytoin 100 MG Cap.ER PO SCH ×2 (08:18→22:47)
[2017-01-14] MEDS: carBAMazepine 200 MG Tab PO SCH (08:18)
[2017-01-14] MEDS: Lisinopril 20 MG Tab PO SCH (08:18)
[2017-01-14] MEDS: Metoprolol Succinate 50 MG Tab.ER PO SCH (08:18)
[2017-01-14] MEDS: CYCLOSPORINE EYEBOTH SCH ×2 (08:19→22:48)
--- NOTE | 2017-01-14 08:40 | PCM.PN ---
- General Info Date of Service: 01/14/17 Admission Dx/Problem (Free Text): Brain Bleed Chelsea is seen this morning. Not as talkative as yesterday, more anxious today. Nursing reports increasing anxiety and restlessness overnight. She does make a few discernable words and phrases this morning but most speech is still jibberish. RFID STRATEGIST did advance diet yesterday to NDD1. She has done well with this. Functional Status: Reports: Pain Controlled, Tolerating Diet, Ambulating (with assist of 1-2), Urinating - Review of Systems General: Reports: Weakness. Denies: Fever Pulmonary: Reports: No Symptoms Cardiovascular: Reports: No Symptoms Gastrointestinal: Reports: No Symptoms Neurological: Reports: Confusion Psychiatric: Reports: Confusion - Patient Data Vitals - Most Recent: Last Vital Signs Temp 98.7 F 01/14/17 05:16 Pulse 114 H 01/14/17 08:18 Resp 20 01/14/17 05:16 BP 107/87 01/14/17 08:18 Pulse Ox 90 L 01/14/17 05:16 Weight - Most Recent: 130 lb 1.6 oz I&O - Last 24 Hours: Intake & Output 01/13/17 01/14/17 01/14/17 22:59 06:59 14:59 Intake Total 250 450 Balance 250 450 Lab Results Last 24 Hours: Laboratory Results - last 24 hr 01/13/17 01/14/17 Range/Units 05:30 05:52 Sodium 138 (136-145) mEq/L Potassium 4.5 (3.5-5.1) mEq/L Chloride 102 (98-107) mEq/L Carbon Dioxide 28 (21-32) mEq/L Anion Gap 12.5 (5-15) BUN 19 H (7-18) mg/dL Creatinine 0.9 (0.55-1.02) mg/dL Est Cr Clr Drug Dosing 37.12 mL/min Estimated GFR (MDRD) 59 (>60) mL/min BUN/Creatinine Ratio 21.1 H (14-18) Glucose 112 (83-115) mg/dL Calcium 9.5 (8.5-10.1) mg/dL Magnesium 2.0 (1.8-2.4) mg/dl Vitamin D 25-Hydroxy 21 L (30-100) ng/mL Med Orders - Current: Current Medications Acetaminophen (Tylenol) 650 mg PO Q4H PRN PRN Reason: Pain (Mild 1-3)/fever Last Admin: 01/11/17 23:57 Dose: 650 mg Hydrocodone Bitart/Acetaminophen ([place] 325-5 Mg) 1 tab PO Q4H PRN PRN Reason: Pain (moderate 4-6) Albuterol/Ipratropium (Duoneb 3.0-0.5 Mg/3 Ml) 3 ml NEB Q4H PRN PRN Reason: Shortness Of Breath/wheezing Bisacodyl (Dulcolax) 5 mg PO DAILY PRN PRN Reason: Constipation Carbamazepine (Tegretol Tab) 200 mg PO TID [facility] Last Admin: 01/14/17 08:18 Dose: 200 mg Cholecalciferol (Vitamin D3) 2,000 units PO DAILY [facility] Diltiazem HCl (Cardizem Cd) 120 mg PO DAILY [facility] Last Admin: 01/14/17 08:18 Dose: 120 mg Docusate Sodium (Colace) 100 mg PO BID PRN PRN Reason: Constipation Hydralazine HCl (Apresoline) 10 mg IVPUSH Q4H PRN PRN Reason: Hypertension Hydromorphone HCl (Dilaudid) 0.25 mg IVPUSH Q2H PRN PRN Reason: Pain (severe 7-10) Last Admin: 01/13/17 19:09 Dose: 0.25 mg Levothyroxine Sodium (Synthroid) 88 mcg PO ACBRK [facility] Last Admin: 01/14/17 06:39 Dose: 88 mcg Lisinopril (Prinivil) 20 mg PO DAILY [facility] Last Admin: 01/14/17 08:18 Dose: 20 mg Lorazepam (Ativan) 0.25 mg IV Q6H PRN PRN Reason: Anxiety Last Admin: 01/13/17 23:42 Dose: 0.25 mg Lorazepam (Ativan) 2 mg IVPUSH Q4H PRN PRN Reason: Seizures Magnesium Sulfate (Pharmacy To Dose - Magnesium Replacement) 1 dose .XX ASDIRECTED [facility] Metoprolol Succinate (Toprol Xl) 50 mg PO DAILY [facility] Last Admin: 01/14/17 08:18 Dose: 50 mg Metoprolol Tartrate (Lopressor) 5 mg IVPUSH Q4H PRN PRN Reason: Tachycardia Ondansetron HCl (Zofran) 4 mg IV Q6H PRN PRN Reason: Nausea/Vomiting Last Admin: 01/13/17 10:50 Dose: 4 mg Cyclosporine ( Restasis) Ophth Solution 0 each EYEBOTH BID [facility] Last Admin: 01/14/17 08:19 Dose: Not Given Phenytoin Sodium (Phenytoin) 100 mg PO BID [facility] Last Admin: 01/14/17 08:18 Dose: 100 mg Polyethylene Glycol (Miralax) 17 gm PO DAILY PRN PRN Reason: Constipation Last Admin: 01/14/17 06:39 Dose: 17 gm Potassium Chloride (Pharmacy To Dose - Potassium Replacement) 1 dose .XX ASDIRECTED [facility] Senna/Docusate Sodium (Senna Plus) 1 tab PO BID PRN PRN Reason: Constipation Simvastatin (Zocor) 20 mg PO BEDTIME [facility] Last Admin: 01/13/17 21:14 Dose: 20 mg Temazepam (Restoril) 7.5 mg PO BEDTIME PRN PRN Reason: Sleep Last Admin: 01/13/17 21:40 Dose: 7.5 mg Discontinued Medications Carbamazepine (Tegretol) 300 mg PO TID [facility] Last Admin: 01/12/17 16:28 Dose: 300 mg Carbamazepine (Tegretol) 200 mg PO TID [facility] Last Admin: 01/12/17 20:09 Dose: 200 mg Furosemide (Lasix) 20 mg PO DAILY PRN PRN Reason: Edema Gabapentin (Neurontin) 100 mg PO DAILY [facility] Last Admin: 01/12/17 09:10 Dose: 100 mg Promethazine HCl 12.5 mg/ (Sodium Chloride) 50.5 mls @ 100 mls/hr IV Q6H PRN PRN Reason: Nausea/Vomiting Magnesium Sulfate 2 gm/ Premix 50 mls @ 25 mls/hr IV ONETIME ONE Stop: 01/13/17 12:59 Last Admin: 01/13/17 12:25 Dose: 25 mls/hr Magnesium Oxide (Magnesium Oxide) 400 mg PO ONETIME ONE Stop: 01/13/17 08:01 Last Admin: 01/13/17 12:13 Dose: Not Given - Exam Quality Assessment: DVT Prophylaxis General: Alert, No Acute Distress HEENT: Pupils Equal, EOMI, Mucous Membr. Moist/[place] Neck: Supple Lungs: Clear to Auscultation, Normal Respiratory Effort Cardiovascular: Irregular Rhythm GI/Abdominal Exam: Normal Bowel Sounds, Soft, Non-Tender (Female) Exam: Deferred Back Exam: Normal Inspection Extremities: Normal Inspection, No Pedal Edema, Normal Capillary Refill Peripheral Pulses: 2+: Dorsalis Pedis (L), Dorsalis Pedis (R) Skin: Warm, Dry Neurological: Strength Equal Bilateral (2/5 bilat - does squeeze my hands with equal strength and quality but it is less strength than yesterday. Unable to follow commands to move her legs or feet. ). No: Normal Speech Psy/Mental Status: Alert, Anxious - Problem List & Annotations (1) Altered mental status SNOMED Code(s): 663671121 Code(s): R41.82 - ALTERED MENTAL STATUS, UNSPECIFIED Status: Acute Priority: High Current Visit: Yes Qualifiers: Altered mental status type: disorientation Qualified Code(s): R41.0 - Disorientation, unspecified (2) Subdural hematoma, acute SNOMED Code(s): 43447443 Code(s): I62.01 - NONTRAUMATIC ACUTE SUBDURAL HEMORRHAGE Status: Acute Priority: High Current Visit: Yes (3) Fall SNOMED Code(s): 2609889 Code(s): W19.XXXA - UNSPECIFIED FALL, INITIAL ENCOUNTER Status: Acute Priority: High Current Visit: Yes Qualifiers: Encounter type: initial encounter Qualified Code(s): W19.XXXA - Unspecified fall, initial encounter (4) A-fib SNOMED Code(s): 95914693 Code(s): I48.91 - UNSPECIFIED ATRIAL FIBRILLATION Status: Chronic Priority: High Current Visit: Yes Qualifiers: Atrial fibrillation type: unspecified Qualified Code(s): I48.91 - Unspecified atrial fibrillation (5) Hypovitaminosis D SNOMED Code(s): 54021432 Code(s): E55.9 - VITAMIN D DEFICIENCY, UNSPECIFIED Status: Chronic Priority: [facility] Current Visit: Yes - Problem List Review Problem List Initiated/Reviewed/Updated: Yes - My Orders Last 24 Hours: My Active Orders 01/13/17 08:13 Consult to Speech Language Pathology [RFID STRATEGIST Evaluation and Treatment] [CONS] Routine 01/14/17 08:30 Cholecalciferol (Vitamin D3) [Vitamin D3] 2,000 units PO DAILY - Plan Plan:: Assessment/Plan: Acute: AMS/Encephalopathy - RFID STRATEGIST for swallow eval; diet advanced yesterday afternoon to NDD1, tolerating and doing well with that thus far - She is on high dose anticonvulsant medications 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 Subdural Hematoma - S/p Fall - Has hx/o brain bleed in the past - Head CT scan confirms it: 5 mm in the left temporo-parietal region and 7 mm in the right parietal region, MRI done following day shows slight worsening of bleed- see reports; plan repeat MRI today to follow if any further extension of bleeding - Risk factor: On Warfarin, fall and hx of CVA/hemorrhagic with subsequent seizure disorder in the past - ED provider spoke to Dr. Schmidt, Neurosurgeon: recommend CT scan in 2 weeks then follow up in the office - Neuro check Q4 - Hold Warfarin and ASA Generalized Weakness now with hypovitaminosis D, see below - Likely 2.2 Above - Continue PT/OT - Thyroid panel: normal - Vit D level: low at 21, start PO supplement Subtherapeutic INR - 1.18 - Cotninue to hold off Warfarin/ASA due to brain bleed - Recommend switching to DOACs (defer to PCP after discharge) S/P Fall at [facility] -High Fall Risk -Polypharmacy -Fall precautions in place Chronic: Impaired Vision HTN- stable HLD- will check lipid panel Atrial Fibrillation via Holter Monitor , HR controlled with PO cardizem and metoprolol Mitral Valve Insufficiency GERD OA/DJD Osteoporosis Hypothyroidism- stable Trigerminal Neuralgia, Continue Carbamezapin Inflammatory Spondylopathy Hx/o DVT/TIA Hx/o Brain Bleed Hx/o seizure s/p hemorrhagic stroke Anxiety Plan: She is clinically stable--mental status is fluctuant but slowly improving Routine AM Labs Continue Neuro check Q4 RFID STRATEGIST/PT/OT to cont DVT PPx: SCDs GI prophylax Fall/Seizure Precautions CM/SW for d/c planning-- likely plan DC to SNF early next week pending progress. Code Status: DNR/DNI Prognosis is guarded at this time. Family is aware as Dr. Nesbitt had long discussion with them regarding likely hemorrhagic and ischemic stroke probability. LOS will be >96 hours due to continued monitoring and therapies with ongoing assessments, need for repeat brain imaging to follow bleeds, SNF placement.
[2017-01-14] MEDS: Cholecalciferol (Vitamin D3) 1,000 Unit Tab PO SCH ×2 (09:25→11:27)
[2017-01-14] MEDS: Ondansetron 4 MG/2 ML SDV IV PRN (09:42)
[2017-01-14] MEDS: carBAMazepine 100 MG Tab.Chew PO SCH ×3 (11:05→22:48)
[2017-01-14] MEDS: Ondansetron 4 MG Tab.DIS PO SCH ×3 (11:05→22:49)
[2017-01-14] MEDS ORDERED: Diazepam 5 MG Tab PO ONE (11:06)
[2017-01-14] MEDS: Bisacodyl 5 MG Tab PO PRN (11:27)
--- NOTE | 2017-01-14 14:00 | MR ---
MRI brain Technique: T1 sagittal; T2, T2 FLAIR, diffusion and T1 axial; T1 FLAIR coronal images were obtained. Comparison: Previous MRI brain of 01/12/17. Limitations: Significant motion artifact is noted throughout the exam. Findings: Bilateral subcutaneous dural collections are seen which remain stable from prior MRI. No increase in size is seen. Increased signal is again noted within the periventricular and subcortical white matter compatible with small vessel ischemic demyelination change. Small diffusion abnormality is again seen within the right parietal cortex compatible with a very small fairly acute cortical infarct. There is an extra-axial fluid collection believed to represent subacute blood which remains stable overlying the right frontal convexity. Impression: 1. Significant motion artifact diminishing details. 2. MRI is felt to show stable findings from prior MRI. I see nothing to indicate a new abnormality or increase in size of previous subdural hemorrhages. Diagnostic code #3
[2017-01-14] MEDS: LORazepam 2 MG/ML MDV IV PRN (16:06)
[2017-01-14] MEDS: Dextrose 5%-0.9% NaCl 1,000 ML IV SCH (18:50)
[2017-01-14] MEDS: Simvastatin 20 MG Tab PO SCH (22:49)
[2017-01-15] MEDS: HYDROmorphone 0.5 MG/0.5 ML Syringe IVPUSH PRN ×2 (01:29→22:43)
[2017-01-15] MEDS: Ondansetron 4 MG Tab.DIS PO SCH ×4 (04:26→16:54)
[2017-01-15] MEDS: Levothyroxine 88 MCG Tab PO SCH (05:30)
[2017-01-15] MEDS ORDERED: Bisacodyl 10 MG Supp RECTAL PRN (06:03)
--- NOTE | 2017-01-15 08:18 | PCM.PN ---
- General Info Date of Service: 01/15/17 Admission Dx/Problem (Free Text): Brain Bleed Subjective Update: Follow up Functional Status: Reports: Pain Controlled, Urinating. Denies: Ambulating, New Symptoms - Review of Systems General: Denies: Fever, Chills HEENT: Reports: No Symptoms Cardiovascular: Denies: Chest Pain Gastrointestinal: Denies: Abdominal Pain, Nausea, Vomiting Genitourinary: Reports: No Symptoms Musculoskeletal: Reports: No Symptoms Skin: Denies: Cyanosis, Pallor, Diaphoresis, Rash Neurological: Denies: Confusion, Difficulty Walking, Weakness, Gait Disturbance Psychiatric: Denies: Depression, Anxiety, Agitation, Hallucinations Systems Review Comment:: She had a pretty busy night. She was up and then slept for a few more hours last night. However she remained up since 2 am; restless and anxious per sitter. No acute issues or seizures reported.At the time of my examination, she seems awake and alert; essentially at her baseline. She responds to my basic questions and complaints of pain on her IV access line. Her labs look good this am. She has no fever and vitals are stable. - Patient Data Vitals - Most Recent: Last Vital Signs Temp 36.9 C 01/15/17 08:01 Pulse 115 H 01/15/17 08:01 Resp 19 01/15/17 08:01 BP 115/72 01/15/17 08:01 Pulse Ox 92 L 01/15/17 08:01 Weight - Most Recent: 60.691 kg I&O - Last 24 Hours: Intake & Output 01/14/17 01/15/17 01/15/17 22:59 06:59 14:59 Intake Total 150 645 Output Total 1100 Balance -950 645 Lab Results Last 24 Hours: Laboratory Results - last 24 hr 01/15/17 Range/Units 06:15 Sodium 141 (136-145) mEq/L Potassium 4.4 (3.5-5.1) mEq/L Chloride 104 (98-107) mEq/L Carbon Dioxide 29 (21-32) mEq/L Anion Gap 12.4 (5-15) BUN 15 (7-18) mg/dL Creatinine 0.9 (0.55-1.02) mg/dL Est Cr Clr Drug Dosing 37.12 mL/min Estimated GFR (MDRD) 59 (>60) mL/min BUN/Creatinine Ratio 16.7 (14-18) Glucose 115 (83-115) mg/dL Calcium 9.1 (8.5-10.1) mg/dL Magnesium 1.8 (1.8-2.4) mg/dl Med Orders - Current: Current Medications Acetaminophen (Tylenol) 650 mg PO Q4H PRN PRN Reason: Pain (Mild 1-3)/fever Last Admin: 01/11/17 23:57 Dose: 650 mg Hydrocodone Bitart/Acetaminophen ([place] 325-5 Mg) 1 tab PO Q4H PRN PRN Reason: Pain (moderate 4-6) Albuterol/Ipratropium (Duoneb 3.0-0.5 Mg/3 Ml) 3 ml NEB Q4H PRN PRN Reason: Shortness Of Breath/wheezing Bisacodyl (Dulcolax) 5 mg PO DAILY PRN PRN Reason: Constipation Last Admin: 01/14/17 11:27 Dose: 5 mg Bisacodyl (Dulcolax) 10 mg RECTAL DAILY PRN PRN Reason: Constipation Last Admin: 01/15/17 06:31 Dose: 10 mg Carbamazepine (Tegretol) 150 mg PO BID [facility] Last Admin: 01/14/17 22:48 Dose: Not Given Cholecalciferol (Vitamin D3) 2,000 units PO DAILY [facility] Last Admin: 01/14/17 11:27 Dose: 2,000 units Diltiazem HCl (Cardizem Cd) 120 mg PO DAILY [facility] Last Admin: 01/14/17 08:18 Dose: 120 mg Docusate Sodium (Colace) 100 mg PO BID PRN PRN Reason: Constipation Hydralazine HCl (Apresoline) 10 mg IVPUSH Q4H PRN PRN Reason: Hypertension Hydromorphone HCl (Dilaudid) 0.25 mg IVPUSH Q2H PRN PRN Reason: Pain (severe 7-10) Last Admin: 01/15/17 01:29 Dose: 0.25 mg Dextrose/Sodium Chloride (Dextrose 5%-Normal Saline) 1,000 mls @ 75 mls/hr IV ASDIRECTED [facility] Last Admin: 01/14/17 18:50 Dose: 75 mls/hr Levothyroxine Sodium (Synthroid) 88 mcg PO ACBRK [facility] Last Admin: 01/15/17 05:30 Dose: Not Given Lisinopril (Prinivil) 20 mg PO DAILY [facility] Last Admin: 01/14/17 08:18 Dose: 20 mg Lorazepam (Ativan) 0.25 mg IV Q6H PRN PRN Reason: Anxiety Last Admin: 01/14/17 16:06 Dose: 0.25 mg Lorazepam (Ativan) 2 mg IVPUSH Q4H PRN PRN Reason: Seizures Magnesium Oxide (Magnesium Oxide) 400 mg PO ONETIME ONE Stop: 01/15/17 08:31 Magnesium Sulfate (Pharmacy To Dose - Magnesium Replacement) 1 dose .XX ASDIRECTED [facility] Metoprolol Succinate (Toprol Xl) 50 mg PO DAILY [facility] Last Admin: 01/14/17 08:18 Dose: 50 mg Metoprolol Tartrate (Lopressor) 5 mg IVPUSH Q4H PRN PRN Reason: Tachycardia Modafinil (Provigil) 50 mg PO DAILY [facility] Ondansetron HCl (Zofran) 4 mg IV Q6H PRN PRN Reason: Nausea/Vomiting Last Admin: 01/14/17 09:42 Dose: 4 mg Ondansetron HCl (Zofran Odt) 4 mg PO Q6H [facility] Last Admin: 01/15/17 04:26 Dose: Not Given Cyclosporine ( Restasis) Ophth Solution 0 each EYEBOTH BID [facility] Last Admin: 01/14/17 22:48 Dose: Not Given Phenytoin Sodium (Phenytoin) 100 mg PO BID [facility] Last Admin: 01/14/17 22:47 Dose: Not Given Polyethylene Glycol (Miralax) 17 gm PO DAILY PRN PRN Reason: Constipation Last Admin: 01/14/17 06:39 Dose: 17 gm Potassium Chloride (Pharmacy To Dose - Potassium Replacement) 1 dose .XX ASDIRECTED [facility] Quetiapine Fumarate (Seroquel) 25 mg PO DAILY [facility] Senna/Docusate Sodium (Senna Plus) 1 tab PO BID PRN PRN Reason: Constipation Simvastatin (Zocor) 20 mg PO BEDTIME [facility] Last Admin: 01/14/17 22:49 Dose: Not Given Temazepam (Restoril) 7.5 mg PO BEDTIME PRN PRN Reason: Sleep Last Admin: 01/13/17 21:40 Dose: 7.5 mg Discontinued Medications Carbamazepine (Tegretol) 300 mg PO TID [facility] Last Admin: 01/12/17 16:28 Dose: 300 mg Carbamazepine (Tegretol) 200 mg PO TID [facility] Last Admin: 01/12/17 20:09 Dose: 200 mg Carbamazepine (Tegretol Tab) 200 mg PO TID [facility] Last Admin: 01/14/17 08:18 Dose: 200 mg Carbamazepine (Tegretol) 150 mg PO TID [facility] Last Admin: 01/14/17 16:01 Dose: Not Given Diazepam (Valium.) 5 mg PO ONETIME ONE Stop: 01/14/17 11:07 Last Admin: 01/14/17 11:27 Dose: 5 mg Furosemide (Lasix) 20 mg PO DAILY PRN PRN Reason: Edema Gabapentin (Neurontin) 100 mg PO DAILY [facility] Last Admin: 01/12/17 09:10 Dose: 100 mg Promethazine HCl 12.5 mg/ (Sodium Chloride) 50.5 mls @ 100 mls/hr IV Q6H PRN PRN Reason: Nausea/Vomiting Magnesium Sulfate 2 gm/ Premix 50 mls @ 25 mls/hr IV ONETIME ONE Stop: 01/13/17 12:59 Last Admin: 01/13/17 12:25 Dose: 25 mls/hr Magnesium Oxide (Magnesium Oxide) 400 mg PO ONETIME ONE Stop: 01/13/17 08:01 Last Admin: 01/13/17 12:13 Dose: Not Given - Exam Quality Assessment: Supplemental Oxygen General: Alert, Cooperative (somewhat), No Acute Distress HEENT: Pupils Equal, Pupils Reactive, Mucous Membr. Moist/[place] Neck: Supple, Trachea Midline, No Thyromegaly Lungs: Normal Respiratory Effort, Decreased Breath Sounds (right side), Other ( poor inspiratory and expiratory effort) Cardiovascular: Irregular Rhythm GI/Abdominal Exam: Normal Bowel Sounds, Non-Tender, No Distention, No Abnormal Bruit (Female) Exam: Deferred Back Exam: Normal Inspection Extremities: Normal Inspection, Non-Tender, No Pedal Edema, Normal Capillary Refill Peripheral Pulses: 2+: Dorsalis Pedis (L), Dorsalis Pedis (R) Skin: Warm, Dry, Intact Neurological: No New Focal Deficit, Other (Baseline gibberish words and confusion) Psy/Mental Status: Alert, Normal Affect, Normal Mood - Problem List Review Problem List Initiated/Reviewed/Updated: Yes - My Orders Last 24 Hours: My Active Orders 01/14/17 18:16 One To One Therapy [BH] Routine 01/14/17 18:30 Dextrose 5%-0.9% NaCl [Dextrose 5%-Normal Saline] 1,000 ml IV ASDIRECTED 01/14/17 21:00 carBAMazepine [TEGretol] 150 mg PO BID 01/15/17 06:03 Bisacodyl [Dulcolax] 10 mg RECTAL DAILY PRN 01/15/17 08:30 Magnesium Oxide 400 mg PO ONETIME ONE 01/15/17 09:00 Modafinil [Provigil] 50 mg PO DAILY [facility] [SEROquel] 25 mg PO DAILY - Plan Plan:: Assessment/Plan: Acute: AMS/Delerium w/ Visual Hallucinations, Unchanged - MINUTE CLERK FOR BASIC TRAFFIC for swallow eval; diet advanced yesterday afternoon to NDD1, tolerating and doing well with that thus far - She is on high dose anticonvulsant 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, 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 - Hx of seizure disorder s/p hemorrhagic stroke in the past - She does not follow a Neurologist - May consider Seroquel 25 mg po Daily for symptomatic control; concern it may trigger level 2 screening - Tegretol 150 m gpo BID now Subdural Hematoma - S/p Fall - Has hx/o brain bleed in the past - Head CT scan confirms it: 5 mm in the left temporo-parietal region and 7 mm in the right parietal region, MRI done following day shows slight worsening of bleed- see reports; plan repeat MRI today to follow if any further extension of bleeding - Risk factor: On Warfarin, fall and hx of CVA/hemorrhagic with subsequent seizure disorder in the past - ED provider spoke to Dr. Schmidt, Neurosurgeon: recommend CT scan in 2 weeks then follow up in the office - Continue Neuro check Q4 - Hold Warfarin and ASA - Consider follow Head CT scan in AM/Tuesday Generalized Weakness now with hypovitaminosis D, see below - Likely 2.2 Above - Continue PT/OT - Thyroid panel: normal - Vit D level: low at 21, continue PO supplement Subtherapeutic INR - 1.18 - Continue to hold off Warfarin/ASA due to brain bleed - Recommend switching to DOACs (defer to PCP after discharge) S/P Fall at [facility] - High Fall Risk - Polypharmacy - Fall precautions in place Chronic: Impaired Vision HTN- stable HLD- will check lipid panel Atrial Fibrillation via Holter Monitor , HR controlled with PO cardizem and metoprolol Mitral Valve Insufficiency GERD OA/DJD Osteoporosis Hypothyroidism- stable Trigerminal Neuralgia, Continue Carbamezapin Inflammatory Spondylopathy Hx/o DVT/TIA Hx/o Brain Bleed Hx/o seizure s/p hemorrhagic stroke Anxiety Plan: She remains clinically stable Routine AM Labs Continue Neuro check Q4 Start low dose stimulant Consider holding off all meds for now MINUTE CLERK FOR BASIC TRAFFIC/PT/OT to cont DVT PPx: SCDs GI prophylax Aspiration/Fall/Seizure Precautions CM/SW for d/c planning Code Status: DNR/DNI Prognosis is guarded at this time. LOS is likely > 96 hours due to continued monitoring and therapies with ongoing assessments, need for repeat brain imaging to follow bleeds, and for possible SNF/NH placement.
[2017-01-15] MEDS ORDERED: Magnesium Oxide 400 MG Tab PO ONE (08:30)
[2017-01-15] MEDS ORDERED: QUEtiapine 25 MG Tab PO SCH (09:00)
[2017-01-15] MEDS ORDERED: Modafinil 200 MG Tab PO SCH (09:00)
[2017-01-15] MEDS ORDERED: Magnesium Sulfate/Water 2 GM in Premix Bag 1 BAG IV ONE (09:00)
[2017-01-15] MEDS: Metoprolol Succinate 50 MG Tab.ER PO SCH (09:13)
[2017-01-15] MEDS: Diltiazem 120 MG Cap.CD PO SCH (09:13)
[2017-01-15] MEDS: Lisinopril 20 MG Tab PO SCH (09:14)
[2017-01-15] MEDS: Cholecalciferol (Vitamin D3) 1,000 Unit Tab PO SCH (09:17)
[2017-01-15] MEDS: Phenytoin 100 MG Cap.ER PO SCH ×2 (09:17→20:46)
[2017-01-15] MEDS: carBAMazepine 100 MG Tab.Chew PO SCH ×2 (09:18→20:46)
[2017-01-15] MEDS: Dextrose 5%-0.9% NaCl 1,000 ML IV SCH (09:32)
[2017-01-15] MEDS: CYCLOSPORINE EYEBOTH SCH ×2 (09:49→20:46)
[2017-01-15] MEDS ORDERED: Azithromycin 500 MG in Sodium Chloride 0.9% 250 ML IV ONE (19:26)
[2017-01-15] MEDS: Acetaminophen 325 MG Tab PO PRN (19:32)
[2017-01-15] MEDS ORDERED: cefTRIAXone 1 GM in Sodium Chloride 0.9% 100 ML IV ONE (20:31)
[2017-01-15] MEDS: Simvastatin 20 MG Tab PO SCH (20:46)
--- NOTE | 2017-01-15 21:07 | PCM.SN ---
- Free Text/Narrative Note: Patient developed a temp of 102 F this evening. She is asleep and comfortable. Her night nurse states that she was coughing up phlegm last night. We will place her on sepsis protocol with blood culture x 2, urine culture, aspiration precaution, chest x-ray and intravenous antibiotics with 500 mg azithromycin and 1 gram rocephin. We will hold oral meds in AM except for stimulant. Her family at bedside has been updated about her clinical progress.
--- NOTE | 2017-01-16 03:49 | PCM.PN ---
- General Info Date of Service: 01/16/17 Admission Dx/Problem (Free Text): Brain Bleed Subjective Update: Follow up Functional Status: Reports: Pain Controlled, Tolerating Diet, Urinating. Denies : New Symptoms - Review of Systems General: Denies: Fever, Chills HEENT: Reports: No Symptoms Pulmonary: Reports: Shortness of Breath Cardiovascular: Denies: Chest Pain Gastrointestinal: Denies: Abdominal Pain, Nausea, Vomiting Genitourinary: Reports: No Symptoms Musculoskeletal: Reports: No Symptoms Neurological: Reports: Confusion, Difficulty Walking (Baseline gibberish language), Weakness, Other. Denies: Gait Disturbance Psychiatric: Denies: Depression, Anxiety, Agitation, Hallucinations Systems Review Comment:: No significant overnight. She is alert and awake. She looks better this am. She appears comfortable and eating breakfast. Overnight she complaint of right should pain that is tender to the touch. No edema or redness could appreciated. Her urine output was also decreased but she has been bed bound for the past couple of days. WBC if 11.62 and CRP is 25.8. her UA is negative but CXR shows right sided pulmonary infiltrate consistent with aspiration. During the time of my examination, she told me " I'll talk to you later ". She report no new complaints. - Patient Data Vitals - Most Recent: Last Vital Signs Temp 37.5 C 01/15/17 20:46 Pulse 112 H 01/15/17 20:24 Resp 24 H 01/15/17 20:24 BP 129/95 H 01/15/17 19:20 Pulse Ox 93 L 01/15/17 20:24 Weight - Most Recent: 60.691 kg I&O - Last 24 Hours: Intake & Output 01/15/17 01/15/17 01/16/17 14:59 22:59 06:59 Intake Total 0 668 Balance 0 668 Lab Results Last 24 Hours: Laboratory Results - last 24 hr 01/15/17 01/15/17 Range/Units 06:15 21:50 Sodium 141 (136-145) mEq/L Potassium 4.4 (3.5-5.1) mEq/L Chloride 104 (98-107) mEq/L Carbon Dioxide 29 (21-32) mEq/L Anion Gap 12.4 (5-15) BUN 15 (7-18) mg/dL Creatinine 0.9 (0.55-1.02) mg/dL Est Cr Clr Drug Dosing 37.12 mL/min Estimated GFR (MDRD) 59 (>60) mL/min BUN/Creatinine Ratio 16.7 (14-18) Glucose 115 (83-115) mg/dL Calcium 9.1 (8.5-10.1) mg/dL Magnesium 1.8 (1.8-2.4) mg/dl Urine Color Yellow (Yellow) Urine Appearance Clear (Clear) Urine pH 6.0 (5.0-8.0) Ur Specific [place] 1.025 (1.005-1.030) Urine Protein 1+ H (Negative) Urine Glucose (UA) Negative (Negative) Urine Ketones Negative (Negative) Urine Occult Blood 1+ H (Negative) Urine Nitrite Positive H (Negative) Urine Bilirubin Negative (Negative) Urine Urobilinogen 1.0 (0.2-1.0) Ur Leukocyte Esterase Negative (Negative) Urine RBC 0-5 (0-5) /hpf Urine WBC 0-5 (0-5) /hpf Ur Epithelial Cells Not seen (0-5) /hpf Urine Bacteria Many H (FEW) /hpf Urine Mucus Not seen (FEW) /hpf Med Orders - Current: Current Medications Acetaminophen (Tylenol) 650 mg PO Q4H PRN PRN Reason: Pain (Mild 1-3)/fever Last Admin: 01/15/17 19:32 Dose: 650 mg Hydrocodone Bitart/Acetaminophen ([employer] 325-5 Mg) 1 tab PO Q4H PRN PRN Reason: Pain (moderate 4-6) Albuterol/Ipratropium (Duoneb 3.0-0.5 Mg/3 Ml) 3 ml NEB Q4H PRN PRN Reason: Shortness Of Breath/wheezing Bisacodyl (Dulcolax) 5 mg PO DAILY PRN PRN Reason: Constipation Last Admin: 01/14/17 11:27 Dose: 5 mg Bisacodyl (Dulcolax) 10 mg RECTAL DAILY PRN PRN Reason: Constipation Last Admin: 01/15/17 06:31 Dose: 10 mg Carbamazepine (Tegretol) 150 mg PO BID [facility] Last Admin: 01/15/17 20:46 Dose: Not Given Cholecalciferol (Vitamin D3) 2,000 units PO DAILY [facility] Last Admin: 01/15/17 09:17 Dose: 2,000 units Diltiazem HCl (Cardizem Cd) 120 mg PO DAILY [facility] Last Admin: 01/15/17 09:13 Dose: 120 mg Docusate Sodium (Colace) 100 mg PO BID PRN PRN Reason: Constipation Famotidine (Pepcid) 20 mg IVPUSH BID [facility] Hydralazine HCl (Apresoline) 10 mg IVPUSH Q4H PRN PRN Reason: Hypertension Hydromorphone HCl (Dilaudid) 0.25 mg IVPUSH Q2H PRN PRN Reason: Pain (severe 7-10) Last Admin: 01/15/17 22:43 Dose: 0.25 mg Dextrose/Sodium Chloride (Dextrose 5%-Normal Saline) 1,000 mls @ 75 mls/hr IV ASDIRECTED [facility] Last Admin: 01/15/17 09:32 Dose: 75 mls/hr Ceftriaxone Sodium 1 gm/ (Sodium Chloride) 100 mls @ 200 mls/hr IV Q24H [facility] Levothyroxine Sodium (Synthroid) 88 mcg PO ACBRK [facility] Last Admin: 01/15/17 05:30 Dose: Not Given Lisinopril (Prinivil) 20 mg PO DAILY [facility] Last Admin: 01/15/17 09:14 Dose: 20 mg Lorazepam (Ativan) 0.25 mg IV Q6H PRN PRN Reason: Anxiety Last Admin: 01/14/17 16:06 Dose: 0.25 mg Lorazepam (Ativan) 2 mg IVPUSH Q4H PRN PRN Reason: Seizures Magnesium Sulfate (Pharmacy To Dose - Magnesium Replacement) 1 dose .XX ASDIRECTED [facility] Metoprolol Succinate (Toprol Xl) 50 mg PO DAILY [facility] Last Admin: 01/15/17 09:13 Dose: 50 mg Metoprolol Tartrate (Lopressor) 5 mg IVPUSH Q4H PRN PRN Reason: Tachycardia Modafinil (Provigil) 100 mg PO DAILY [facility] Ondansetron HCl (Zofran) 4 mg IV Q6H PRN PRN Reason: Nausea/Vomiting Last Admin: 01/14/17 09:42 Dose: 4 mg Ondansetron HCl (Zofran Odt) 4 mg PO Q6H [facility] Last Admin: 01/15/17 16:54 Dose: Not Given Cyclosporine ( Restasis) Ophth Solution 0 each EYEBOTH BID [facility] Last Admin: 01/15/17 20:46 Dose: Not Given Phenytoin Sodium (Phenytoin) 100 mg PO BID [facility] Last Admin: 01/15/17 20:46 Dose: Not Given Polyethylene Glycol (Miralax) 17 gm PO DAILY PRN PRN Reason: Constipation Last Admin: 01/14/17 06:39 Dose: 17 gm Potassium Chloride (Pharmacy To Dose - Potassium Replacement) 1 dose .XX ASDIRECTED [facility] Saccharomyces Boulardii (Florastor) 250 mg PO DAILY [facility] Senna/Docusate Sodium (Senna Plus) 1 tab PO BID PRN PRN Reason: Constipation Simvastatin (Zocor) 20 mg PO BEDTIME [facility] Last Admin: 01/15/17 20:46 Dose: Not Given Temazepam (Restoril) 7.5 mg PO BEDTIME PRN PRN Reason: Sleep Last Admin: 01/13/17 21:40 Dose: 7.5 mg Discontinued Medications Carbamazepine (Tegretol) 300 mg PO TID [facility] Last Admin: 01/12/17 16:28 Dose: 300 mg Carbamazepine (Tegretol) 200 mg PO TID [facility] Last Admin: 01/12/17 20:09 Dose: 200 mg Carbamazepine (Tegretol Tab) 200 mg PO TID [facility] Last Admin: 01/14/17 08:18 Dose: 200 mg Carbamazepine (Tegretol) 150 mg PO TID [facility] Last Admin: 01/14/17 16:01 Dose: Not Given Diazepam (Valium.) 5 mg PO ONETIME ONE Stop: 01/14/17 11:07 Last Admin: 01/14/17 11:27 Dose: 5 mg Furosemide (Lasix) 20 mg PO DAILY PRN PRN Reason: Edema Gabapentin (Neurontin) 100 mg PO DAILY [facility] Last Admin: 01/12/17 09:10 Dose: 100 mg Promethazine HCl 12.5 mg/ (Sodium Chloride) 50.5 mls @ 100 mls/hr IV Q6H PRN PRN Reason: Nausea/Vomiting Magnesium Sulfate 2 gm/ Premix 50 mls @ 25 mls/hr IV ONETIME ONE Stop: 01/13/17 12:59 Last Admin: 01/13/17 12:25 Dose: 25 mls/hr Magnesium Sulfate 2 gm/ Premix 50 mls @ 25 mls/hr IV ONETIME ONE Stop: 01/15/17 10:59 Last Admin: 01/15/17 09:36 Dose: 25 mls/hr Azithromycin 500 mg/ Sodium (Chloride) 250 mls @ 250 mls/hr IV ONETIME ONE Stop: 01/15/17 20:25 Last Admin: 01/15/17 20:40 Dose: 250 mls/hr Ceftriaxone Sodium 1 gm/ (Sodium Chloride) 100 mls @ 200 mls/hr IV ONETIME ONE Stop: 01/15/17 21:00 Last Admin: 01/15/17 21:52 Dose: 200 mls/hr Magnesium Oxide (Magnesium Oxide) 400 mg PO ONETIME ONE Stop: 01/13/17 08:01 Last Admin: 01/13/17 12:13 Dose: Not Given Modafinil (Provigil) 50 mg PO DAILY [facility] Last Admin: 01/15/17 09:26 Dose: 50 mg Quetiapine Fumarate (Seroquel) 25 mg PO DAILY [facility] Last Admin: 01/15/17 09:26 Dose: 25 mg - Exam Quality Assessment: Supplemental Oxygen General: Alert, Cooperative (somewhat), No Acute Distress HEENT: Pupils Equal, Pupils Reactive, Mucous Membr. Moist/[place] Neck: Supple, Trachea Midline, No JVD Lungs: Normal Respiratory Effort, Decreased Breath Sounds (right lung ), Other (Poor inspiratory and expiratory effort) Cardiovascular: Irregular Rhythm GI/Abdominal Exam: Normal Bowel Sounds, Soft, Non-Tender, No Organomegaly, No Distention, No Abnormal Bruit (Female) Exam: Deferred Back Exam: Normal Inspection Extremities: Normal Inspection, Non-Tender, No Pedal Edema, Normal Capillary Refill Peripheral Pulses: 2+: Dorsalis Pedis (L), Dorsalis Pedis (R) Skin: Warm, Dry, Intact Neurological: No New Focal Deficit Psy/Mental Status: Alert, Normal Affect, Normal Mood - Problem List Review Problem List Initiated/Reviewed/Updated: Yes - My Orders Last 24 Hours: My Active Orders 01/15/17 06:03 Bisacodyl [Dulcolax] 10 mg RECTAL DAILY PRN 01/15/17 19:26 CXR [Chest 1V Frontal] [CR] Stat 01/15/17 20:20 CULTURE BLOOD [BC] Routine 01/15/17 20:30 CULTURE BLOOD [BC] Stat 01/15/17 21:07 Incentive Spirometry [RT Incentive Spirometry] [RC] ASDIRECTED 01/16/17 05:11 CBC WITH AUTO DIFF [HEME] AM CRP [C-REACTIVE PROTEIN] [CHEM] AM 01/16/17 09:00 Famotidine [Pepcid] 20 mg IVPUSH BID Modafinil [Provigil] 100 mg PO DAILY Saccharomyces Boulardii [Florastor] 250 mg PO DAILY cefTRIAXone [Rocephin] 1 gm Sodium Chloride 0.9% [Normal Saline] 100 ml IV Q24H 01/17/17 05:11 CBC WITH AUTO DIFF [HEME] AM CRP [C-REACTIVE PROTEIN] [CHEM] AM 01/18/17 05:11 CBC WITH AUTO DIFF [HEME] AM CRP [C-REACTIVE PROTEIN] [CHEM] AM - Plan Plan:: Assessment/Plan: Acute: AMS/Delerium, Improved - She is more alert and awake this am with baseline gibberish language and confusion - She is on high dose anticonvulsant medications 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, 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 - Hx of seizure disorder s/p hemorrhagic stroke in the past - She does not follow a Neurologist - May consider Seroquel 25 mg po Daily for symptomatic control; concern it may trigger level 2 screening - Tegretol 150 mg po BID and Phenytoin 100 mg po BID - Hold off all medications except pain, tylenol and stimulant this am - Continue Provigil 100 mg po Daily to keep her awake all day and not sleep - ARCHITECT MANAGER follow up if available Aspiration Pneumonia, New - She has been altered with fluctuating level of alertness - CXR shows right side pneumonia with small pleural effusion - Continue IV 500 mg Azithromycin and 1 gram Rocephin daily - Supplemental O2, Routine RT care and Bronchodilators - Sputum Cx/Sx - Oral probiotic if able to take it in Small Left Side Pleural Effusion - New abnormal finding on CXR - IS as directed - Aspiration precaution - Serial CXR as needed 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 Schmidt, Neurosurgeon: recommend CT scan in 2 weeks then follow up in the office - Continue Neuro check Q4 - Continue to Hold Warfarin and ASA - Follow up MRI: essentially the same from previous study; no acute new abnormal findings - Consider follow Head CT scan Tuesday Generalized Weakness, Unchanged - Likely 2.2 Above and poor intake - Continue PT/OT - Thyroid panel: normal - Vit D level: low Vitamin D-Deficiency, New - Vit D level 21 (low) - Continue Vit D supplement Subtherapeutic INR, Unchanged - Last INR 1.18 - Continue to hold off Warfarin/ASA due to brain bleed - May restart tomorrow pending repeat head CT scan in AM - Recommend switching to DOACs (defer to PCP after discharge) Right Shoulder Pain, New - S/p Fall - Tender with palpation and pain with active movement - XR with 3 viewd to r/o acute fracture - PRN pain medication Resolved: S/P Fall at [facility] - High Fall Risk - Polypharmacy - Fall precautions in place Chronic: Impaired Vision HTN- stable HLD- will check lipid panel Atrial Fibrillation via Holter Monitor , HR controlled with PO cardizem and metoprolol Mitral Valve Insufficiency GERD OA/DJD Osteoporosis Hypothyroidism- stable Trigerminal Neuralgia, Continue Carbamezapin Inflammatory Spondylopathy Hx/o DVT/TIA Hx/o Brain Bleed Hx/o seizure s/p hemorrhagic stroke Anxiety Plan: She looks much better this am and more alert and awake Routine AM Labs Continue Neuro check Q4, ARCHITECT MANAGER and PT/OT Bladder scan for urinary retention; she has been mostly bed bound DVT PPx: SCDs GI prophylaxis: H2B IV BID Aspiration/Fall/Seizure Precautions CM/SW for d/c planning Code Status: DNR/DNI Prognosis remains guarded. LOS > 96 hours due to continued monitoring and therapies with ongoing assessments, need for repeat brain imaging to follow bleeds, and for possible SNF/NH placement.
[2017-01-16] MEDS: Modafinil 200 MG Tab PO SCH (08:20)
[2017-01-16] MEDS: Acetaminophen 325 MG Tab PO PRN ×2 (08:22→14:16)
[2017-01-16] MEDS: Diltiazem 120 MG Cap.CD PO SCH (08:25)
[2017-01-16] MEDS: Metoprolol Succinate 50 MG Tab.ER PO SCH (08:26)
[2017-01-16] MEDS: Famotidine 20 MG/2 ML SDV IVPUSH SCH ×3 (08:26→20:18)
[2017-01-16] MEDS: Saccharomyces Boulardii (Probiotic) 250 MG Cap PO SCH (08:26)
[2017-01-16] MEDS: Cholecalciferol (Vitamin D3) 1,000 Unit Tab PO SCH (08:26)
[2017-01-16] MEDS ORDERED: cefTRIAXone 1 GM in Sodium Chloride 0.9% 100 ML IV SCH (09:00)
--- NOTE | 2017-01-16 09:54 | CR ---
Chest: Frontal view of the chest was obtained. Comparison: Previous chest x-ray of 01/11/17. Increased density identified within the right lung base and right upper lung. These findings are an interval change from prior exam. Blunting of the lateral left costophrenic angle is seen compatible with pleural effusion which appears as an interval change. Central lung markings presumably due to pulmonary vascular congestion are stable. Bony structures are osteopenic. Degenerative change and scoliosis is present within the spine. Mild degenerative change seen within the right shoulder. Impression: 1. New areas of parenchymal density within the right upper and right lower lung. Findings presumably due to pneumonia or aspiration. 2. Small left-sided pleural effusion which is an interval change. Stable pulmonary vascular congestion. 3. Other findings as noted above which are stable. Diagnostic code #3 I agree with preliminary report issued by [facility] ([facility] report finalized on 01/15/17, 9:14 PM Central Time)
[2017-01-16] MEDS: cefTRIAXone 1 GM in Sodium Chloride 0.9% 100 ML IV SCH (12:32)
[2017-01-16] MEDS: Ondansetron 4 MG Tab.DIS PO SCH ×3 (12:36→19:34)
[2017-01-16] MEDS ORDERED: Azithromycin 500 MG in Sodium Chloride 0.9% 250 ML IV ONE (13:45)
[2017-01-16] MEDS: Dextrose 5%-0.9% NaCl 1,000 ML IV SCH (15:07)
[2017-01-16] MEDS: Metoprolol Tartrate 5 MG/5 ML SDV IVPUSH PRN (20:53)
[2017-01-16] MEDS: Simvastatin 20 MG Tab PO SCH (20:56)
[2017-01-17] MEDS: Metoprolol Tartrate 5 MG/5 ML SDV IVPUSH PRN ×5 (00:57→22:21)
[2017-01-17] MEDS: Ondansetron 4 MG Tab.DIS PO SCH ×5 (01:07→22:12)
[2017-01-17] MEDS: Dextrose 5%-0.9% NaCl 1,000 ML IV SCH (04:53)
[2017-01-17] MEDS: Levothyroxine 88 MCG Tab PO SCH (05:07)
[2017-01-17] MEDS: LORazepam 2 MG/ML MDV IV PRN (05:53)
--- NOTE | 2017-01-17 07:16 | CR ---
Right shoulder: Three views of the right shoulder were obtained. Comparison: No previous shoulder study. Inferior spurring seen within the humeral head. Humerus is subluxed superiorly suggesting a chronic rotator cuff tear. Bony structures are osteoporotic. No acute fracture is seen. Nodular density noted within the right upper lung which is an interval change from prior chest x-ray of 01/11/17. This finding is also not seen on prior chest CT of 04/25/14. Blunting of the right lateral costophrenic angle is seen compatible with pleural effusion. Impression: 1. Nodular density within the right upper lung which is not seen on previous studies. Difficult to exclude an area of pneumonia or real mass. Continued chest x-ray follow-up is recommended. Probable right sided pleural effusion. 2. Findings of chronic rotator cuff tear within the right shoulder. 3. Degenerative change within the glenohumeral joint. Diagnostic code #3 I agree with preliminary report issued by [facility], with additional node as described above ([facility] report finalized on 01/16/17, 2:53 PM Central Time)
--- NOTE | 2017-01-17 07:24 | PCM.DCSUM1 ---
Discharge Summary - Hospital Course Free Text/Narrative:: This is an 86-year-old elderly white female with past medical history of Impaired Vision, HTN, HLD, Atrial Fibrillation via Holter Monitor , HR controlled on Warfarin, Mitral Valve Insufficiency, GERD, Osteoporosis, Hypothyroidism, Trigerminal Neuralgia, Hx/o DVT/TIA, Hx/o Brain Bleed, Hx/o "Fake Seizures"/Epilepsy, and Anxiety who was brought in the emergency department with complaints of dizziness, "not being herself" and progressive generalized weakness. 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 Per ED notes, patient has been having progressive weakness over the past 3 weeks. Today, she fell at the assisted living facility (she just moved in there about a week ago) but denies hitting her head. No prodromal symptoms. No loss of bowel or bladder control. She does however complaints of a headache. She denies any systemic infection. Patient carries a history of brain bleed in the past and currently on warfarin for stroke prophylaxis. Her initial workup in emergency department shows a CBC remarkable for hemoglobin of 10.8 and hematocrit of 32.9. Her INR is 1.18. Her chemistry is remarkable for BUN of 22, creatinine of 1.2, AST of 39, alkaline phosphatase of 120, total protein of 6.3, and albumin of 2.2. Her phenytoin and carbamazepine levels are within normal limits. Her UA is negative for urinary tract infection. Her chest x-ray shows no acute abnormal finding. 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 Patient is being admitted for brain bleed and generalized weakness. She is DNR/ DNI. ED staff phoned Neurosurgery in [place] who recommend repeat head CT in 2 weeks , no need for transfer or other intervention at that time. MRI of brain was obtained upon admission showing multiple areas of bleeding and one area of cortical defect. Repeat MRI 48 hours later as recommended by Radiologist to follow stability of bleeds was without significant interval change. Warfarin for afib was held, with discussion with family regarding increased risk for ischemic stroke due to her hx of afib. PT/OT/ST worked with patient. She initially had worsening of symptoms with confusion/disorientation/ weakness but all slowly improved. Diet is currently NDD1 pureed with thin liquids, she has progressed well with swallowing, speech is more discernable now. She did develop aspiration syndrome early in her course as she was quite lethargic. She was started on IV abx and will be discharged on flagyl, amoxicillin and pepcid for this. Anticonvulsant medications were trimmed without seizure activity. Labs remained stable. She will be discharged to SNF for rehab stay, cont PT/OT/ST. She should have follow up with PCP within one week of discharge; should be discussed with PCP risk vs benefits of restarting anticoagulant of some sort for afib. Repeat CXR could be considered in 2 weeks to follow aspiration syndrome. - Discharge Data Discharge Date: 01/17/17 (admit date 01/13/17) Discharge Disposition: DC/Tfer to SNF 03 Condition: Good - Discharge Diagnosis/Problem(s) (1) Subdural hematoma, acute SNOMED Code(s): 55482817 ICD Code: I62.01 - NONTRAUMATIC ACUTE SUBDURAL HEMORRHAGE Status: Acute Priority: High Current Visit: Yes (2) Altered mental status SNOMED Code(s): 535293249 ICD Code: R41.82 - ALTERED MENTAL STATUS, UNSPECIFIED Status: Acute Priority: High Current Visit: Yes Qualifiers: Altered mental status type: disorientation Qualified Code(s): R41.0 - Disorientation, unspecified (3) Fall SNOMED Code(s): 9743737 ICD Code: W19.XXXA - UNSPECIFIED FALL, INITIAL ENCOUNTER Status: Acute Priority: High Current Visit: Yes Qualifiers: Encounter type: initial encounter Qualified Code(s): W19.XXXA - Unspecified fall, initial encounter (4) A-fib SNOMED Code(s): 01744592 ICD Code: I48.91 - UNSPECIFIED ATRIAL FIBRILLATION Status: Chronic Priority: High Current Visit: Yes Qualifiers: Atrial fibrillation type: unspecified Qualified Code(s): I48.91 - Unspecified atrial fibrillation (5) Hypovitaminosis D SNOMED Code(s): 55373763 ICD Code: E55.9 - VITAMIN D DEFICIENCY, UNSPECIFIED Status: Chronic Priority: Medium Current Visit: Yes (6) Aspiration syndrome SNOMED Code(s): 34207332 ICD Code: T17.900A - UNSP FB IN RESP TRACT, PART UNSP CAUSING ASPHYX, INIT Status: Acute Priority: High Current Visit: Yes Qualifiers: Encounter type: initial encounter Qualified Code(s): T17.900A - Unspecified foreign body in respiratory tract, part unspecified causing asphyxiation, initial encounter - Patient Summary/Data Operative Procedure(s) Performed: None Complications: None Consults: Consultations 01/13/17 08:13 Consult to Speech Language Pathology [VET TECH Evaluation and Treatment] [CONS] Routine Labs Pending at D/C: None Recommended Follow-up Testing/Procedures: Patient DC instructions: Physical & Occupational and Speech Therapy to eval & treat, Follow up with PCP within one week of discharge Consider restarting anticoagulant for a.fib in the future; holding warfarin for now due to bleeds Consider repeat CXR in 2 weeks for followup of aspiration Planned Operative Procedure(s) after DC: None Hospital Course: As above - Patient Instructions Diet: Heart Healthy Diet Diet, Other: NDD1, pureed with thin liquids Activity: As Tolerated (with assist) Driving: Do Not Drive Showering/Bathing: May Shower Notify Provider of: Fever, Increased Pain, Nausea and/or Vomiting - Discharge Plan Prescriptions/Med Rec: Amoxicillin 500 mg PO TID #10 capsule Bifidobacter. Bifidum/B.Longum [Florajen Bifidoblend] 460 mg PO DAILY #30 capsule carBAMazepine [Carbamazepine ER] 200 mg PO BID #60 cpmp.12hr Cholecalciferol (Vitamin D3) [Vitamin D3] 2,000 units PO DAILY #30 tablet Famotidine [Pepcid] 20 mg PO BID #60 tablet Metronidazole [IJD: metroNIDAZOLE] 500 mg PO .EVERY 8 HOURS #30 tab Home Medications: Home Meds Acetaminophen [Tylenol Arthritis Pain] 2 tab PO Q8H PRN 04/25/14 [History] Furosemide [Lasix] 20 mg PO DAILY PRN 04/25/14 [History] Levothyroxine [Synthroid] 88 mcg PO DAILY 04/25/14 [History] Lisinopril [Zestril] 20 mg PO DAILY 04/25/14 [History] Simvastatin [Zocor] 20 mg PO BEDTIME 04/25/14 [History] cycloSPORINE [Restasis] 1 drop EYEBOTH BID 04/25/14 [History] Diltiazem [Cardizem CD] 120 mg PO DAILY 01/11/17 [History] Metoprolol Succinate [Toprol XL] 50 mg PO DAILY 01/11/17 [History] Propylene Glycol/Peg 400 [Systane 0.3-0.4% Eye Drops] 1 drop EYEBOTH BID [History] Amoxicillin 500 mg PO TID #10 capsule 01/17/17 [Rx] Bifidobacter. Bifidum/B.Longum [Florajen Bifidoblend] 460 mg PO DAILY #30 capsule 01/17/17 [Rx] Bisacodyl [Dulcolax] 5 mg PO DAILY PRN tablet 01/17/17 [Rx] Bisacodyl [Dulcolax] 10 mg RECTAL DAILY PRN supp 01/17/17 [Rx] Cholecalciferol (Vitamin D3) [Vitamin D3] 2,000 units PO DAILY #30 tablet [Rx] Famotidine [Pepcid] 20 mg PO BID #60 tablet 01/17/17 [Rx] Metronidazole [IJD: metroNIDAZOLE] 500 mg PO .EVERY 8 HOURS #30 tab 01/17/17 [Rx ] Polyethylene Glycol 3350 [MiraLAX] 17 gm PO DAILY PRN packet 01/17/17 [Rx] carBAMazepine [Carbamazepine ER] 200 mg PO BID #60 cpmp.12hr 01/17/17 [Rx] Patient Handouts: Aspiration Precautions, Subdural Hematoma, Warfarin: What You Need to Know, Atrial Fibrillation, [id number], Aspiration Pneumonia Forms: ED Department Discharge Referrals: Hillary Headley NP [Primary Care Provider] - - Discharge Summary/Plan Comment DC Time >30 min.: Yes (45 min) - General Info Date of Service: 01/17/17 Admission Dx/Problem (Free Text: Brain Bleed Chelsea is seen this morning; pleasant, talkative. Doing well, denies pain. Was awake much of the night, anxious but no c/o pain/discomfort. Plans for DC to SNF for rehab stay today. Functional Status: Reports: Pain Controlled, Tolerating Diet, Ambulating, Urinating - Review of Systems General: Reports: Weakness (improving) HEENT: Reports: No Symptoms Pulmonary: Reports: No Symptoms. Denies: Shortness of Breath Cardiovascular: Reports: No Symptoms. Denies: Chest Pain, Palpitations Gastrointestinal: Reports: No Symptoms. Denies: Abdominal Pain Genitourinary: Reports: No Symptoms Musculoskeletal: Reports: No Symptoms Neurological: Reports: Confusion (intermittent), Difficulty Walking, Weakness. Denies: Numbness, Seizure, Tingling - Patient Data Vitals - Most Recent: Last Vital Signs Temp 99.1 F 01/17/17 03:50 Pulse 125 H 01/17/17 04:57 Resp 20 01/17/17 03:50 BP 127/61 01/17/17 04:57 Pulse Ox 96 01/17/17 03:50 Weight - Most Recent: 137 lb 4.8 oz I&O - Last 24 hours: Intake & Output 01/16/17 01/17/17 01/17/17 22:59 06:59 14:59 Intake Total 2495 1041 Output Total 750 150 Balance 1745 891 Lab Results - Last 24 hrs: Laboratory Results - last 24 hr 01/16/17 01/17/17 01/17/17 Range/Units 05:30 05:56 05:56 WBC 11.21 H (3.98-10.04) K/mm3 RBC 3.76 L (3.98-5.22) M/mm3 Hgb 11.3 (11.2-15.7) gm/L Hct 34.6 (34.1-44.9) % MCV 92.0 (79.4-94.8) fl MCH 30.1 (25.6-32.2) pg MCHC 32.7 (32.2-35.5) g/dl RDW Std Deviation 49.2 H (36.4-46.3) fL Plt Count 167 L (182-369) K/mm3 MPV 10.2 (9.4-12.3) fl Neut % (Auto) 66.2 (34.0-71.1) % Lymph % (Auto) 11.2 L (19.3-51.7) % Bonner % (Auto) 19.0 H (4.7-12.5) % Eos % (Auto) 3.1 (0.7-5.8) Baso % (Auto) 0.3 (0.1-1.2) % Neut # (Auto) 7.42 H (1.56-6.13) K/mm3 Lymph # (Auto) 1.26 (1.18-3.74) K/mm3 Bonner # (Auto) 2.13 H (0.24-0.36) K/mm3 Eos # (Auto) 0.35 (0.04-0.36) K/mm3 Baso # (Auto) 0.03 (0.01-0.08) K/mm3 Manual Slide Review Abnormal smear Uric Acid 3.3 (2.6-6.0) mg/dL C-Reactive Protein 27.0 H* (<1.0) mg/dL EUNICE Results - Last 24 hrs: Microbiology 01/15/17 20:20 Aerobic Blood Culture - Preliminary Blood NO GROWTH AFTER 1 DAY Anaerobic Blood Culture - Preliminary NO GROWTH AFTER 1 DAY 01/15/17 20:30 Aerobic Blood Culture - Preliminary Blood NO GROWTH AFTER 1 DAY Anaerobic Blood Culture - Preliminary NO GROWTH AFTER 1 DAY Med Orders - Current: Current Medications Acetaminophen (Tylenol) 650 mg PO Q4H PRN PRN Reason: Pain (Mild 1-3)/fever Last Admin: 01/16/17 14:16 Dose: 650 mg Hydrocodone Bitart/Acetaminophen (Currie 325-5 Mg) 1 tab PO Q4H PRN PRN Reason: Pain (moderate 4-6) Albuterol/Ipratropium (Duoneb 3.0-0.5 Mg/3 Ml) 3 ml NEB Q4H PRN PRN Reason: Shortness Of Breath/wheezing Bisacodyl (Dulcolax) 5 mg PO DAILY PRN PRN Reason: Constipation Last Admin: 01/14/17 11:27 Dose: 5 mg Bisacodyl (Dulcolax) 10 mg RECTAL DAILY PRN PRN Reason: Constipation Last Admin: 01/15/17 06:31 Dose: 10 mg Carbamazepine (Tegretol) 150 mg PO BID [facility] Last Admin: 01/15/17 20:46 Dose: Not Given Cholecalciferol (Vitamin D3) 2,000 units PO DAILY [facility] Last Admin: 01/16/17 08:26 Dose: Not Given Diltiazem HCl (Cardizem Cd) 120 mg PO DAILY [facility] Last Admin: 01/16/17 08:25 Dose: Not Given Docusate Sodium (Colace) 100 mg PO BID PRN PRN Reason: Constipation Famotidine (Pepcid) 20 mg IVPUSH DAILY [facility] Furosemide (Lasix) 20 mg PO ONETIME ONE Stop: 01/17/17 07:05 Hydralazine HCl (Apresoline) 10 mg IVPUSH Q4H PRN PRN Reason: Hypertension Hydromorphone HCl (Dilaudid) 0.25 mg IVPUSH Q2H PRN PRN Reason: Pain (severe 7-10) Last Admin: 01/15/17 22:43 Dose: 0.25 mg Dextrose/Sodium Chloride (Dextrose 5%-Normal Saline) 1,000 mls @ 75 mls/hr IV ASDIRECTED [facility] Last Admin: 01/17/17 04:53 Dose: 75 mls/hr Ceftriaxone Sodium 1 gm/ (Sodium Chloride) 100 mls @ 200 mls/hr IV Q24H [facility] Last Admin: 01/16/17 12:32 Dose: 200 mls/hr Azithromycin 500 mg/ Sodium (Chloride) 250 mls @ 250 mls/hr IV Q24H [facility] Metronidazole 500 mg/ Premix 100 mls @ 100 mls/hr IV Q8H [facility] Levothyroxine Sodium (Synthroid) 88 mcg PO ACBRK [facility] Last Admin: 01/17/17 05:07 Dose: 88 mcg Lisinopril (Prinivil) 20 mg PO DAILY [facility] Last Admin: 01/15/17 09:14 Dose: 20 mg Lorazepam (Ativan) 0.25 mg IV Q6H PRN PRN Reason: Anxiety Last Admin: 01/17/17 05:53 Dose: 0.25 mg Lorazepam (Ativan) 2 mg IVPUSH Q4H PRN PRN Reason: Seizures Magnesium Sulfate (Pharmacy To Dose - Magnesium Replacement) 1 dose .XX ASDIRECTED [facility] Metoprolol Succinate (Toprol Xl) 50 mg PO DAILY [facility] Last Admin: 01/16/17 08:26 Dose: Not Given Metoprolol Tartrate (Lopressor) 5 mg IVPUSH Q4H PRN PRN Reason: Tachycardia Last Admin: 01/17/17 04:57 Dose: 5 mg Modafinil (Provigil) 100 mg PO DAILY [facility] Last Admin: 01/16/17 08:20 Dose: 100 mg [Systane 0.3-0.4% Eye Drops] 1 D Own Med 1 drop EYEBOTH BID [facility] Ondansetron HCl (Zofran) 4 mg IV Q6H PRN PRN Reason: Nausea/Vomiting Last Admin: 01/14/17 09:42 Dose: 4 mg Ondansetron HCl (Zofran Odt) 4 mg PO Q6H [facility] Last Admin: 01/17/17 04:55 Dose: 4 mg Cyclosporine ( Restasis) Ophth Solution 0 each EYEBOTH BID [facility] Last Admin: 01/15/17 20:46 Dose: Not Given Polyethylene Glycol (Miralax) 17 gm PO DAILY PRN PRN Reason: Constipation Last Admin: 01/14/17 06:39 Dose: 17 gm Potassium Chloride (Pharmacy To Dose - Potassium Replacement) 1 dose .XX ASDIRECTED [facility] Saccharomyces Boulardii (Florastor) 250 mg PO DAILY [facility] Last Admin: 01/16/17 08:26 Dose: Not Given Senna/Docusate Sodium (Senna Plus) 1 tab PO BID PRN PRN Reason: Constipation Simvastatin (Zocor) 20 mg PO BEDTIME [facility] Last Admin: 01/16/17 20:56 Dose: Not Given Temazepam (Restoril) 7.5 mg PO BEDTIME PRN PRN Reason: Sleep Last Admin: 01/13/17 21:40 Dose: 7.5 mg Discontinued Medications Carbamazepine (Tegretol) 300 mg PO TID [facility] Last Admin: 01/12/17 16:28 Dose: 300 mg Carbamazepine (Tegretol) 200 mg PO TID [facility] Last Admin: 01/12/17 20:09 Dose: 200 mg Carbamazepine (Tegretol Tab) 200 mg PO TID [facility] Last Admin: 01/14/17 08:18 Dose: 200 mg Carbamazepine (Tegretol) 150 mg PO TID [facility] Last Admin: 01/14/17 16:01 Dose: Not Given Diazepam (Valium.) 5 mg PO ONETIME ONE Stop: 01/14/17 11:07 Last Admin: 01/14/17 11:27 Dose: 5 mg Famotidine (Pepcid) 20 mg IVPUSH BID [facility] Stop: 01/16/17 23:59 Last Admin: 01/16/17 20:18 Dose: 20 mg Furosemide (Lasix) 20 mg PO DAILY PRN PRN Reason: Edema Gabapentin (Neurontin) 100 mg PO DAILY [facility] Last Admin: 01/12/17 09:10 Dose: 100 mg Promethazine HCl 12.5 mg/ (Sodium Chloride) 50.5 mls @ 100 mls/hr IV Q6H PRN PRN Reason: Nausea/Vomiting Magnesium Sulfate 2 gm/ Premix 50 mls @ 25 mls/hr IV ONETIME ONE Stop: 01/13/17 12:59 Last Admin: 01/13/17 12:25 Dose: 25 mls/hr Magnesium Sulfate 2 gm/ Premix 50 mls @ 25 mls/hr IV ONETIME ONE Stop: 01/15/17 10:59 Last Admin: 01/15/17 09:36 Dose: 25 mls/hr Azithromycin 500 mg/ Sodium (Chloride) 250 mls @ 250 mls/hr IV ONETIME ONE Stop: 01/15/17 20:25 Last Admin: 01/15/17 20:40 Dose: 250 mls/hr Ceftriaxone Sodium 1 gm/ (Sodium Chloride) 100 mls @ 200 mls/hr IV ONETIME ONE Stop: 01/15/17 21:00 Last Admin: 01/15/17 21:52 Dose: 200 mls/hr Ceftriaxone Sodium 1 gm/ (Sodium Chloride) 100 mls @ 200 mls/hr IV Q24H [facility] Last Admin: 01/16/17 19:36 Dose: Not Given Azithromycin 500 mg/ Sodium (Chloride) 250 mls @ 250 mls/hr IV ONETIME ONE Stop: 01/16/17 14:44 Last Admin: 01/16/17 14:20 Dose: 250 mls/hr Magnesium Oxide (Magnesium Oxide) 400 mg PO ONETIME ONE Stop: 01/13/17 08:01 Last Admin: 01/13/17 12:13 Dose: Not Given Modafinil (Provigil) 50 mg PO DAILY [facility] Last Admin: 01/15/17 09:26 Dose: 50 mg Phenytoin Sodium (Phenytoin) 100 mg PO BID [facility] Last Admin: 01/15/17 20:46 Dose: Not Given Quetiapine Fumarate (Seroquel) 25 mg PO DAILY [facility] Last Admin: 01/15/17 09:26 Dose: 25 mg - Exam Quality Assessment: Reports: DVT Prophylaxis General: Reports: Alert, Cooperative, No Acute Distress HEENT: Reports: Pupils Equal, EOMI, Mucous Membr. Moist/Rose Neck: Reports: Supple Lungs: Reports: Clear to Auscultation, Normal Respiratory Effort, Decreased Breath Sounds (bases) Cardiovascular: Reports: Irregular Rhythm GI/Abdominal Exam: Normal Bowel Sounds, Soft, Non-Tender (Female) Exam: Deferred Rectal (Female) Exam: Deferred Back Exam: Reports: Normal Inspection Extremities: Normal Inspection, No Pedal Edema, Normal Capillary Refill Neurological: Reports: Other (speech is improved from when I last saw her late last week. She is more orientated but still intermittently confused. ) Psy/Mental Status: Reports: Alert, Normal Affect *Q Meaningful Use (DIS) - VTE *Q VTE Criteria *Q: - Stroke *Q Stroke Criteria *Q: - AMI *Q AMI Criteria *Q:
[2017-01-17] MEDS ORDERED: Furosemide 20 MG Tab PO ONE (07:30)
[2017-01-17] MEDS: Saccharomyces Boulardii (Probiotic) 250 MG Cap PO SCH ×2 (08:31→20:19)
[2017-01-17] MEDS: metroNIDAZOLE/Normal Saline 500 MG in Premix Bag 1 BAG IV SCH ×2 (08:36→16:11)
[2017-01-17] MEDS: Metoprolol Succinate 50 MG Tab.ER PO SCH (08:44)
[2017-01-17] MEDS: Famotidine 20 MG/2 ML SDV IVPUSH SCH (08:44)
[2017-01-17] MEDS: Diltiazem 120 MG Cap.CD PO SCH (08:45)
[2017-01-17] MEDS: carBAMazepine 100 MG Tab.Chew PO SCH (08:45)
[2017-01-17] MEDS: Modafinil 200 MG Tab PO SCH (08:47)
[2017-01-17] MEDS: Cholecalciferol (Vitamin D3) 1,000 Unit Tab PO SCH (08:48)
[2017-01-17] MEDS: Lisinopril 20 MG Tab PO SCH (08:48)
[2017-01-17] MEDS ORDERED: Azithromycin 500 MG in Sodium Chloride 0.9% 250 ML IV SCH (09:00)
[2017-01-17] MEDS: cefTRIAXone 1 GM in Sodium Chloride 0.9% 100 ML IV SCH (11:11)
--- NOTE | 2017-01-17 12:06 | PCM.PN ---
- General Info Date of Service: 01/17/17 Admission Dx/Problem (Free Text): Brain Bleed Chelsea is seen this morning; pleasant, talkative. Doing well, denies pain. Was awake much of the night, anxious but no c/o pain/discomfort. She is coughing, very minimal. No SOB. Repeat CXR ordered. Plans for DC to SNF for rehab stay likely tomorrow. Functional Status: Reports: Pain Controlled, Tolerating Diet, Ambulating, Urinating. Denies: New Symptoms - Review of Systems General: Reports: Weakness (improving) HEENT: Reports: No Symptoms. Denies: Headaches (denies) Pulmonary: Reports: Cough (minimal). Denies: Shortness of Breath, Pleuritic Chest Pain, Sputum Cardiovascular: Reports: No Symptoms. Denies: Chest Pain (denies) Gastrointestinal: Reports: No Symptoms. Denies: Abdominal Pain (denies) Neurological: Reports: Confusion (intermittent). Denies: Dizziness (denies), Headache (denies), Seizure Psychiatric: Reports: Confusion - Patient Data Vitals - Most Recent: Last Vital Signs Temp 99.3 F 01/17/17 08:42 Pulse 121 H 01/17/17 09:26 Resp 16 01/17/17 08:42 BP 128/76 01/17/17 09:26 Pulse Ox 97 01/17/17 08:42 Weight - Most Recent: 137 lb 4.8 oz I&O - Last 24 Hours: Intake & Output 01/16/17 01/17/17 01/17/17 22:59 06:59 14:59 Intake Total 2495 1041 Output Total 750 150 Balance 1745 891 Lab Results Last 24 Hours: Laboratory Results - last 24 hr 01/17/17 01/17/17 Range/Units 05:56 05:56 WBC 11.21 H (3.98-10.04) K/mm3 RBC 3.76 L (3.98-5.22) M/mm3 Hgb 11.3 (11.2-15.7) gm/L Hct 34.6 (34.1-44.9) % MCV 92.0 (79.4-94.8) fl MCH 30.1 (25.6-32.2) pg MCHC 32.7 (32.2-35.5) g/dl RDW Std Deviation 49.2 H (36.4-46.3) fL Plt Count 167 L (182-369) K/mm3 MPV 10.2 (9.4-12.3) fl Neut % (Auto) 66.2 (34.0-71.1) % Lymph % (Auto) 11.2 L (19.3-51.7) % King % (Auto) 19.0 H (4.7-12.5) % Eos % (Auto) 3.1 (0.7-5.8) Baso % (Auto) 0.3 (0.1-1.2) % Neut # (Auto) 7.42 H (1.56-6.13) K/mm3 Lymph # (Auto) 1.26 (1.18-3.74) K/mm3 King # (Auto) 2.13 H (0.24-0.36) K/mm3 Eos # (Auto) 0.35 (0.04-0.36) K/mm3 Baso # (Auto) 0.03 (0.01-0.08) K/mm3 Manual Slide Review Abnormal smear C-Reactive Protein 27.0 H* (<1.0) mg/dL Boy Results Last 24 Hours: Microbiology 01/15/17 20:20 Aerobic Blood Culture - Preliminary Blood NO GROWTH AFTER 1 DAY Anaerobic Blood Culture - Preliminary NO GROWTH AFTER 1 DAY 01/15/17 20:30 Aerobic Blood Culture - Preliminary Blood NO GROWTH AFTER 1 DAY Anaerobic Blood Culture - Preliminary NO GROWTH AFTER 1 DAY Med Orders - Current: Current Medications Acetaminophen (Tylenol) 650 mg PO Q4H PRN PRN Reason: Pain (Mild 1-3)/fever Last Admin: 01/16/17 14:16 Dose: 650 mg Hydrocodone Bitart/Acetaminophen ([place] 325-5 Mg) 1 tab PO Q4H PRN PRN Reason: Pain (moderate 4-6) Albuterol/Ipratropium (Duoneb 3.0-0.5 Mg/3 Ml) 3 ml NEB Q4H PRN PRN Reason: Shortness Of Breath/wheezing Bisacodyl (Dulcolax) 5 mg PO DAILY PRN PRN Reason: Constipation Last Admin: 01/14/17 11:27 Dose: 5 mg Bisacodyl (Dulcolax) 10 mg RECTAL DAILY PRN PRN Reason: Constipation Last Admin: 01/15/17 06:31 Dose: 10 mg Carbamazepine (Tegretol Tab) 200 mg PO BID [facility] Cholecalciferol (Vitamin D3) 2,000 units PO DAILY [facility] Last Admin: 01/17/17 08:48 Dose: 2,000 units Diltiazem HCl (Cardizem Cd) 120 mg PO DAILY [facility] Last Admin: 01/17/17 08:45 Dose: 120 mg Docusate Sodium (Colace) 100 mg PO BID PRN PRN Reason: Constipation Famotidine (Pepcid) 20 mg IVPUSH DAILY [facility] Last Admin: 01/17/17 08:44 Dose: 20 mg Hydralazine HCl (Apresoline) 10 mg IVPUSH Q4H PRN PRN Reason: Hypertension Hydromorphone HCl (Dilaudid) 0.25 mg IVPUSH Q2H PRN PRN Reason: Pain (severe 7-10) Last Admin: 01/15/17 22:43 Dose: 0.25 mg Ceftriaxone Sodium 1 gm/ (Sodium Chloride) 100 mls @ 200 mls/hr IV Q24H [facility] Last Admin: 01/17/17 11:11 Dose: 200 mls/hr Metronidazole 500 mg/ Premix 100 mls @ 100 mls/hr IV Q8H [facility] Last Admin: 01/17/17 08:36 Dose: 100 mls/hr Levothyroxine Sodium (Synthroid) 88 mcg PO ACBRK [facility] Last Admin: 01/17/17 05:07 Dose: 88 mcg Lisinopril (Prinivil) 20 mg PO DAILY [facility] Last Admin: 01/17/17 08:48 Dose: 20 mg Lorazepam (Ativan) 0.25 mg IV Q6H PRN PRN Reason: Anxiety Last Admin: 01/17/17 05:53 Dose: 0.25 mg Lorazepam (Ativan) 2 mg IVPUSH Q4H PRN PRN Reason: Seizures Magnesium Sulfate (Pharmacy To Dose - Magnesium Replacement) 1 dose .XX ASDIRECTED [facility] Metoprolol Succinate (Toprol Xl) 50 mg PO DAILY [facility] Last Admin: 01/17/17 08:44 Dose: 50 mg Metoprolol Tartrate (Lopressor) 5 mg IVPUSH Q4H PRN PRN Reason: Tachycardia Last Admin: 01/17/17 09:26 Dose: 5 mg Ondansetron HCl (Zofran) 4 mg IV Q6H PRN PRN Reason: Nausea/Vomiting Last Admin: 01/14/17 09:42 Dose: 4 mg Ondansetron HCl (Zofran Odt) 4 mg PO Q6H [facility] Last Admin: 01/17/17 11:10 Dose: 4 mg Cyclosporine ( Restasis) Ophth Solution 0 each EYEBOTH BID [facility] Last Admin: 01/15/17 20:46 Dose: Not Given [Systane 0.3-0.4% Eye Drops] 1 D Own Med 0 each EYEBOTH BID [facility] Last Admin: 01/17/17 08:43 Dose: 1 each Polyethylene Glycol (Miralax) 17 gm PO DAILY PRN PRN Reason: Constipation Last Admin: 01/14/17 06:39 Dose: 17 gm Potassium Chloride (Pharmacy To Dose - Potassium Replacement) 1 dose .XX ASDIRECTED [facility] Saccharomyces Boulardii (Florastor) 250 mg PO BID [facility] Senna/Docusate Sodium (Senna Plus) 1 tab PO BID PRN PRN Reason: Constipation Simvastatin (Zocor) 20 mg PO BEDTIME [facility] Last Admin: 01/16/17 20:56 Dose: Not Given Temazepam (Restoril) 7.5 mg PO BEDTIME PRN PRN Reason: Sleep Last Admin: 01/13/17 21:40 Dose: 7.5 mg Discontinued Medications Carbamazepine (Tegretol) 300 mg PO TID [facility] Last Admin: 01/12/17 16:28 Dose: 300 mg Carbamazepine (Tegretol) 200 mg PO TID [facility] Last Admin: 01/12/17 20:09 Dose: 200 mg Carbamazepine (Tegretol Tab) 200 mg PO TID [facility] Last Admin: 01/14/17 08:18 Dose: 200 mg Carbamazepine (Tegretol) 150 mg PO TID [facility] Last Admin: 01/14/17 16:01 Dose: Not Given Carbamazepine (Tegretol) 150 mg PO BID [facility] Last Admin: 01/17/17 08:45 Dose: 150 mg Diazepam (Valium.) 5 mg PO ONETIME ONE Stop: 01/14/17 11:07 Last Admin: 01/14/17 11:27 Dose: 5 mg Famotidine (Pepcid) 20 mg IVPUSH BID [facility] Stop: 01/16/17 23:59 Last Admin: 01/16/17 20:18 Dose: 20 mg Furosemide (Lasix) 20 mg PO DAILY PRN PRN Reason: Edema Furosemide (Lasix) 20 mg PO ONETIME ONE Stop: 01/17/17 07:31 Last Admin: 01/17/17 08:48 Dose: 20 mg Gabapentin (Neurontin) 100 mg PO DAILY [facility] Last Admin: 01/12/17 09:10 Dose: 100 mg Promethazine HCl 12.5 mg/ (Sodium Chloride) 50.5 mls @ 100 mls/hr IV Q6H PRN PRN Reason: Nausea/Vomiting Magnesium Sulfate 2 gm/ Premix 50 mls @ 25 mls/hr IV ONETIME ONE Stop: 01/13/17 12:59 Last Admin: 01/13/17 12:25 Dose: 25 mls/hr Dextrose/Sodium Chloride (Dextrose 5%-Normal Saline) 1,000 mls @ 75 mls/hr IV ASDIRECTED [facility] Last Admin: 01/17/17 04:53 Dose: 75 mls/hr Magnesium Sulfate 2 gm/ Premix 50 mls @ 25 mls/hr IV ONETIME ONE Stop: 01/15/17 10:59 Last Admin: 01/15/17 09:36 Dose: 25 mls/hr Azithromycin 500 mg/ Sodium (Chloride) 250 mls @ 250 mls/hr IV ONETIME ONE Stop: 01/15/17 20:25 Last Admin: 01/15/17 20:40 Dose: 250 mls/hr Ceftriaxone Sodium 1 gm/ (Sodium Chloride) 100 mls @ 200 mls/hr IV ONETIME ONE Stop: 01/15/17 21:00 Last Admin: 01/15/17 21:52 Dose: 200 mls/hr Ceftriaxone Sodium 1 gm/ (Sodium Chloride) 100 mls @ 200 mls/hr IV Q24H [facility] Last Admin: 01/16/17 19:36 Dose: Not Given Azithromycin 500 mg/ Sodium (Chloride) 250 mls @ 250 mls/hr IV Q24H [facility] Last Admin: 01/17/17 10:41 Dose: Not Given Azithromycin 500 mg/ Sodium (Chloride) 250 mls @ 250 mls/hr IV ONETIME ONE Stop: 01/16/17 14:44 Last Admin: 01/16/17 14:20 Dose: 250 mls/hr Magnesium Oxide (Magnesium Oxide) 400 mg PO ONETIME ONE Stop: 01/13/17 08:01 Last Admin: 01/13/17 12:13 Dose: Not Given Modafinil (Provigil) 50 mg PO DAILY [facility] Last Admin: 01/15/17 09:26 Dose: 50 mg Modafinil (Provigil) 100 mg PO DAILY [facility] Last Admin: 01/17/17 08:47 Dose: 100 mg Phenytoin Sodium (Phenytoin) 100 mg PO BID [facility] Last Admin: 01/15/17 20:46 Dose: Not Given Quetiapine Fumarate (Seroquel) 25 mg PO DAILY [facility] Last Admin: 01/15/17 09:26 Dose: 25 mg Saccharomyces Boulardii (Florastor) 250 mg PO DAILY [facility] Last Admin: 01/17/17 08:31 Dose: 250 mg - Exam Quality Assessment: Supplemental Oxygen, DVT Prophylaxis General: Alert, No Acute Distress HEENT: Pupils Equal, EOMI, Mucous Membr. Moist/[place] Neck: Supple Lungs: Normal Respiratory Effort, Decreased Breath Sounds (bases bilat). No: Rhonchi, Wheezing Cardiovascular: Irregular Rhythm GI/Abdominal Exam: Normal Bowel Sounds, Soft, Non-Tender (Female) Exam: Deferred Back Exam: Normal Inspection Extremities: Normal Inspection, No Pedal Edema, Normal Capillary Refill Peripheral Pulses: 2+: Dorsalis Pedis (L), Dorsalis Pedis (R) Neurological: Strength Equal Bilateral (4/5 upper ext mud mill tender strength, = bilat. LE able to plantar/dorsiflex against resistance 3-4/5 strength and = bilat), Sensation Intact. No: Normal Speech (occasional garbled but significant improvements from when I saw her last on Tuesday. She is able to answer most questions appropriately and follow conversation.) Psy/Mental Status: Alert, Normal Mood, Anxious - Problem List & Annotations (1) Subdural hematoma, acute SNOMED Code(s): 29154859 Code(s): I62.01 - NONTRAUMATIC ACUTE SUBDURAL HEMORRHAGE Status: Acute Priority: High Current Visit: Yes (2) Altered mental status SNOMED Code(s): 721987874 Code(s): R41.82 - ALTERED MENTAL STATUS, UNSPECIFIED Status: Acute Priority: High Current Visit: Yes Qualifiers: Altered mental status type: disorientation Qualified Code(s): R41.0 - Disorientation, unspecified Annotation/Comment:: Improved significantly (3) Fall SNOMED Code(s): 3244142 Code(s): W19.XXXA - UNSPECIFIED FALL, INITIAL ENCOUNTER Status: Acute Priority: High Current Visit: Yes Qualifiers: Encounter type: initial encounter Qualified Code(s): W19.XXXA - Unspecified fall, initial encounter (4) A-fib SNOMED Code(s): 09740515 Code(s): I48.91 - UNSPECIFIED ATRIAL FIBRILLATION Status: Chronic Priority: High Current Visit: Yes Qualifiers: Atrial fibrillation type: unspecified Qualified Code(s): I48.91 - Unspecified atrial fibrillation (5) Hypovitaminosis D SNOMED Code(s): 07776474 Code(s): E55.9 - VITAMIN D DEFICIENCY, UNSPECIFIED Status: Chronic Priority: Medium Current Visit: Yes (6) Aspiration syndrome SNOMED Code(s): 45104255 Code(s): T17.900A - UNSP FB IN RESP TRACT, PART UNSP CAUSING ASPHYX, INIT Status: Acute Priority: High Current Visit: Yes Qualifiers: Encounter type: initial encounter Qualified Code(s): T17.900A - Unspecified foreign body in respiratory tract, part unspecified causing asphyxiation, initial encounter - Problem List Review Problem List Initiated/Reviewed/Updated: Yes - My Orders Last 24 Hours: My Active Orders 01/17/17 08:00 metroNIDAZOLE/Normal Saline [Flagyl 500 MG in NS 100 ML] 500 mg Premix Bag 1 bag IV Q8H 01/17/17 11:53 Chest 2V [CR] Routine 01/17/17 21:00 Saccharomyces Boulardii [Florastor] 250 mg PO BID carBAMazepine [TEGretol Tab] 200 mg PO BID - Plan Plan:: Assessment/Plan: Acute: AMS/Delerium, Improved - She is more alert and awake with baseline gibberish language and confusion to be significantly improved from when I last saw her on Tuesday - She is on high dose anticonvulsant medications [employer]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 - Hx of seizure disorder s/p hemorrhagic stroke in the past - She does not follow a Neurologist - UNDERWRITING DIRECTOR cont to follow Aspiration Pneumonia, New - She has been altered with fluctuating level of alertness - CXR shows right side pneumonia with small pleural effusion - Continue IV abx; consulted with pharmacy- will cont rocephin, add flagyl, stop zithromax. Cont florastor BID - Supplemental O2, Routine RT care and Bronchodilators - Sputum Cx/Sx Small Left Side Pleural Effusion - New abnormal finding on CXR - IS as directed - Aspiration precaution - Serial CXR as needed; will repeat CXR today Subdural Hematoma and Acute Right Cortical Infarct, Stable - S/p Fall - Has hx/o brain bleed in the past - Head CT scan confirms it: 5 mm in the left temporo-parietal region and 7 mm in the right parietal region, MRI done following day shows slight worsening of bleed- see reports - Risk factor: On Warfarin, fall and hx of CVA/hemorrhagic with subsequent seizure disorder in the past - ED provider spoke to Dr. Schmidt, Neurosurgeon: recommend CT scan in 2 weeks then follow up in the office - Continue Neuro check Q4 - Continue to Hold Warfarin and ASA - Follow up MRI: essentially the same from previous study; no acute new abnormal findings - Consider follow Head CT scan -- will schedule for tomorrow Generalized Weakness, Unchanged - Likely 2.2 Above and poor intake - Continue PT/OT - Thyroid panel: normal - Vit D level: low, started supplement as below Vitamin D-Deficiency, New - Vit D level 21 (low) - Continue Vit D supplement Subtherapeutic INR, Unchanged - Last INR 1.18 - Continue to hold off Warfarin/ASA due to brain bleed - Recommend switching to DOACs (defer to PCP after discharge) Right Shoulder Pain, New - S/p Fall - Tender with palpation and pain with active movement - XR with 3 views to r/o acute fracture is negative - PRN pain medication; PT/OT Resolved: S/P Fall at [facility] - High Fall Risk - Polypharmacy - Fall precautions in place Chronic: Impaired Vision HTN- stable HLD- will check lipid panel Atrial Fibrillation via Holter Monitor , HR controlled with PO cardizem and metoprolol Mitral Valve Insufficiency GERD OA/DJD Osteoporosis Hypothyroidism- stable Trigerminal Neuralgia, Continue Carbamezapin Inflammatory Spondylopathy Hx/o DVT/TIA Hx/o Brain Bleed Hx/o seizure s/p hemorrhagic stroke Anxiety Plan: She looks much better this am and more alert and awake Routine AM Labs Continue Neuro check Q4, UNDERWRITING DIRECTOR and PT/OT DVT PPx: SCDs GI prophylaxis: H2B IV BID Aspiration/Fall/Seizure Precautions CM/SW for d/c planning--Likely DC to [facility] tomorrow for rehab stay, Dr. Chand will be assuming/accepting her care there. Code Status: DNR/DNI LOS > 96 hours due to continued monitoring and therapies with ongoing assessments, need for repeat brain imaging to follow bleeds, and for possible SNF/NH placement.
--- NOTE | 2017-01-17 14:44 | CR ---
Chest: Two views of the chest were obtained. Comparison: Prior chest x-ray of 01/15/17. Blunting of the posterior costophrenic angles are seen presumably representing pleural effusions. Slight thickening of the major fissure seen presumably due to interfissural fluid. Heart is mildly enlarged. Increased density is noted within both lungs, worse on the right side. Findings on the right side appear fairly stable when allowing for differences in technique. Pulmonary vessels felt to be slightly more congested. Scoliosis noted in the spine. Bony structures are osteopenic. Impression: 1. Increased density within both lungs. When allowing for slight differences in technique, findings on the right side are felt to be fairly stable. Pulmonary vessels are felt to be slightly congested. Bilateral pleural effusions are seen. Diagnostic code #3
[2017-01-17] MEDS: HYDROmorphone 0.5 MG/0.5 ML Syringe IVPUSH PRN ×2 (18:06→23:36)
[2017-01-17] MEDS: carBAMazepine 200 MG Tab PO SCH (20:19)
[2017-01-17] MEDS: Simvastatin 20 MG Tab PO SCH (20:19)
[2017-01-17] MEDS ORDERED: Bumetanide 1 MG/4 ML MDV IVPUSH ONE (21:00)
[2017-01-18] MEDS: metroNIDAZOLE/Normal Saline 500 MG in Premix Bag 1 BAG IV SCH ×3 (00:03→15:37)
[2017-01-18] MEDS: Metoprolol Tartrate 5 MG/5 ML SDV IVPUSH PRN ×4 (02:59→20:46)
[2017-01-18] MEDS: HYDROmorphone 0.5 MG/0.5 ML Syringe IVPUSH PRN ×3 (03:04→19:12)
[2017-01-18] MEDS: Ondansetron 4 MG Tab.DIS PO SCH ×3 (05:33→19:02)
[2017-01-18] MEDS: Levothyroxine 88 MCG Tab PO SCH (05:33)
[2017-01-18] MEDS: Diltiazem 120 MG Cap.CD PO SCH (08:19)
[2017-01-18] MEDS: Cholecalciferol (Vitamin D3) 1,000 Unit Tab PO SCH (08:19)
[2017-01-18] MEDS: Metoprolol Succinate 50 MG Tab.ER PO SCH ×2 (08:22→22:48)
[2017-01-18] MEDS: carBAMazepine 200 MG Tab PO SCH ×3 (08:22→22:47)
[2017-01-18] MEDS: Lisinopril 20 MG Tab PO SCH (08:22)
[2017-01-18] MEDS: Saccharomyces Boulardii (Probiotic) 250 MG Cap PO SCH ×3 (08:22→22:47)
[2017-01-18] MEDS ORDERED: Magnesium Oxide 400 MG Tab PO ONE (08:30)
[2017-01-18] MEDS ORDERED: cefTRIAXone 1 GM in Dextrose 5% in Water 100 ML IV SCH ×4 (08:32→11:00)
[2017-01-18] MEDS: Famotidine 20 MG/2 ML SDV IVPUSH SCH (08:40)
--- NOTE | 2017-01-18 08:42 | CT ---
Head CT Technique: Multiple axial sections through the brain were obtained. Motion artifact is present. Findings: Subdural hematomas are seen on both sides overlying both posterior parietal convexities as well as along the more inferior parietal and temporal region on the left side and lesser subdural hematoma more inferiorly along the right parietal region. These show increased density compatible with acute blood. There is thickening of the interhemispheric falx posteriorly felt compatible with additional subdural hematoma. Slight subdural hematoma noted along the tentorium. Overall size of the findings are fairly stable from previous CT exam. Slight increased density is seen from prior study indicating micro-bleeding into the subdural collections. Basal ganglia calcification is noted. Old infarct noted within the right parietal convexity. Previous héctor holes. Small vessel ischemic demyelination changes seen. Impression: 1. Small bilateral subdural collections which appear without significant change in size from prior head CT although increased density is seen within these collections suggesting acute micro-bleeding. 2. Other senescent change as noted above which is stable. Diagnostic code #3
[2017-01-18] MEDS ORDERED: LORazepam 2 MG/ML MDV IV ONE (09:15)
[2017-01-18] MEDS ORDERED: QUEtiapine 25 MG Tab PO ONE (11:04)
--- NOTE | 2017-01-18 11:51 | CR ---
Chest: Portable view of the chest is obtained. Comparison: Previous chest x-ray of 01/17/17. Increased density identified within both lungs asymmetrically worse on the right side. Findings are fairly stable from prior exam when allowing for differences in technique. Heart is slightly enlarged. Bony structures are osteopenic. Degenerative change is noted within the shoulders with findings compatible with chronic rotator cuff tears. Impression: 1. Stable findings. No appreciable change is seen from prior study performed one day earlier. Diagnostic code #3
[2017-01-18] MEDS ORDERED: Piperacillin/Tazobactam 4.5 GM in Dextrose 5% in Water 100 ML IV ONE ×2 (12:00)
[2017-01-18] MEDS ORDERED: Bumetanide 1 MG/4 ML MDV IVPUSH ONE (12:05)
--- NOTE | 2017-01-18 12:13 | PCM.PN ---
- General Info Date of Service: 01/18/17 Admission Dx/Problem (Free Text): Brain Bleed Chelsea is seen this morning. She is more confused and anxious. She is disorientated to place, time and situation. PIANO PROFESSOR worked with her early this am and downgraded her to honey thick liquids. She had repeat head CT this am. She has been tachycardic all night with rates 110-120; IV lopressor was given x 3 doses with little to no improvement. Functional Status: Reports: Pain Controlled (denies c/o pain), Tolerating Diet ( but downgraded liquids to hiney thick), Ambulating (with 2 - 3 assist now) - Review of Systems General: Reports: Weakness, Fatigue HEENT: Denies: Headaches (denies) Pulmonary: Denies: Shortness of Breath (does not appear to be SOB) Cardiovascular: Denies: Chest Pain (denies) Neurological: Reports: Confusion Psychiatric: Reports: Confusion, Anxiety, Agitation Systems Review Comment:: Difficult to obtain due to patient's mental status; disorientated, anxious and agitated at times - Patient Data Vitals - Most Recent: Last Vital Signs Temp 99.0 F 01/18/17 08:04 Pulse 125 H 01/18/17 09:12 Resp 24 H 01/18/17 08:04 BP 131/81 01/18/17 09:12 Pulse Ox 95 01/18/17 08:04 Weight - Most Recent: 141 lb 9.6 oz I&O - Last 24 Hours: Intake & Output 01/17/17 01/18/17 01/18/17 22:59 06:59 14:59 Intake Total 900 220 0 Output Total 325 100 Balance 575 120 0 Lab Results Last 24 Hours: Laboratory Results - last 24 hr 01/18/17 01/18/17 01/18/17 Range/Units 06:30 06:30 06:30 WBC 10.31 H (3.98-10.04) K/mm3 RBC 3.92 L (3.98-5.22) M/mm3 Hgb 11.4 (11.2-15.7) gm/L Hct 36.5 (34.1-44.9) % MCV 93.1 (79.4-94.8) fl MCH 29.1 (25.6-32.2) pg MCHC 31.2 L (32.2-35.5) g/dl RDW Std Deviation 50.1 H (36.4-46.3) fL Plt Count 199 (182-369) K/mm3 MPV 10.4 (9.4-12.3) fl Neut % (Auto) 58.0 (34.0-71.1) % Lymph % (Auto) 14.6 L (19.3-51.7) % [place] % (Auto) 21.0 H (4.7-12.5) % Eos % (Auto) 5.8 (0.7-5.8) Baso % (Auto) 0.4 (0.1-1.2) % Neut # (Auto) 5.98 (1.56-6.13) K/mm3 Lymph # (Auto) 1.51 (1.18-3.74) K/mm3 [place] # (Auto) 2.16 H (0.24-0.36) K/mm3 Eos # (Auto) 0.60 H (0.04-0.36) K/mm3 Baso # (Auto) 0.04 (0.01-0.08) K/mm3 Manual Slide Review Abnormal smear Sodium 141 (136-145) mEq/L Potassium 4.3 (3.5-5.1) mEq/L Chloride 105 (98-107) mEq/L Carbon Dioxide 27 (21-32) mEq/L Anion Gap 13.3 (5-15) BUN 19 H (7-18) mg/dL Creatinine 1.0 (0.55-1.02) mg/dL Est Cr Clr Drug Dosing 33.41 mL/min Estimated GFR (MDRD) 53 (>60) mL/min BUN/Creatinine Ratio 19.0 H (14-18) Glucose 106 (83-115) mg/dL Calcium 9.2 (8.5-10.1) mg/dL Magnesium 1.7 L (1.8-2.4) mg/dl C-Reactive Protein 26.2 H* (<1.0) mg/dL NT-Pro-B Natriuret Pep 5372 H (0-450) pg/mL Boy Results Last 24 Hours: Microbiology 01/15/17 20:20 Aerobic Blood Culture - Preliminary Blood NO GROWTH AFTER 2 DAYS Anaerobic Blood Culture - Preliminary NO GROWTH AFTER 2 DAYS 01/15/17 20:30 Aerobic Blood Culture - Preliminary Blood NO GROWTH AFTER 2 DAYS Anaerobic Blood Culture - Preliminary NO GROWTH AFTER 2 DAYS Med Orders - Current: Current Medications Acetaminophen (Tylenol) 650 mg PO Q4H PRN PRN Reason: Pain (Mild 1-3)/fever Last Admin: 01/16/17 14:16 Dose: 650 mg Hydrocodone Bitart/Acetaminophen ([place] 325-5 Mg) 1 tab PO Q4H PRN PRN Reason: Pain (moderate 4-6) Albuterol/Ipratropium (Duoneb 3.0-0.5 Mg/3 Ml) 3 ml NEB Q4H PRN PRN Reason: Shortness Of Breath/wheezing Bisacodyl (Dulcolax) 5 mg PO DAILY PRN PRN Reason: Constipation Last Admin: 01/14/17 11:27 Dose: 5 mg Bisacodyl (Dulcolax) 10 mg RECTAL DAILY PRN PRN Reason: Constipation Last Admin: 01/15/17 06:31 Dose: 10 mg Carbamazepine (Tegretol Tab) 200 mg PO BID [facility] Last Admin: 01/18/17 08:22 Dose: 200 mg Cholecalciferol (Vitamin D3) 2,000 units PO DAILY [facility] Last Admin: 01/18/17 08:19 Dose: 2,000 units Diltiazem HCl (Cardizem Cd) 120 mg PO DAILY [facility] Last Admin: 01/18/17 08:19 Dose: 120 mg Diltiazem HCl (Cardizem) 60 mg PO ONETIME ONE Stop: 01/18/17 12:07 Docusate Sodium (Colace) 100 mg PO BID PRN PRN Reason: Constipation Famotidine (Pepcid) 20 mg IVPUSH DAILY [facility] Last Admin: 01/18/17 08:40 Dose: 20 mg Hydralazine HCl (Apresoline) 10 mg IVPUSH Q4H PRN PRN Reason: Hypertension Hydromorphone HCl (Dilaudid) 0.25 mg IVPUSH Q2H PRN PRN Reason: Pain (severe 7-10) Last Admin: 01/18/17 03:04 Dose: 0.25 mg Metronidazole 500 mg/ Premix 100 mls @ 100 mls/hr IV Q8H [facility] Last Admin: 01/18/17 08:46 Dose: 100 mls/hr Piperacillin Sod/Tazobactam (Sod 4.5 gm/ Dextrose/Water) 100 mls @ 200 mls/hr IV ONETIME ONE Stop: 01/18/17 12:29 Piperacillin Sod/Tazobactam (Sod 4.5 gm/ Dextrose/Water) 100 mls @ 25 mls/hr IV Q8H [facility] Levothyroxine Sodium (Synthroid) 88 mcg PO ACBRK [facility] Last Admin: 01/18/17 05:33 Dose: 88 mcg Lisinopril (Prinivil) 20 mg PO DAILY [facility] Last Admin: 01/18/17 08:22 Dose: 20 mg Lorazepam (Ativan) 2 mg IVPUSH Q4H PRN PRN Reason: Seizures Lorazepam (Ativan) 0.25 mg IVPUSH Q6H PRN PRN Reason: Anxiety Magnesium Sulfate (Pharmacy To Dose - Magnesium Replacement) 1 dose .XX ASDIRECTED [facility] Metoprolol Succinate (Toprol Xl) 50 mg PO DAILY [facility] Last Admin: 01/18/17 08:22 Dose: 50 mg Metoprolol Tartrate (Lopressor) 5 mg IVPUSH Q4H PRN PRN Reason: Tachycardia Last Admin: 01/18/17 09:12 Dose: 5 mg Ondansetron HCl (Zofran) 4 mg IV Q6H PRN PRN Reason: Nausea/Vomiting Last Admin: 01/14/17 09:42 Dose: 4 mg Ondansetron HCl (Zofran Odt) 4 mg PO Q6H [facility] Last Admin: 01/18/17 11:23 Dose: 4 mg Cyclosporine ( Restasis) Ophth Solution 0 each EYEBOTH BID [facility] Last Admin: 01/15/17 20:46 Dose: Not Given [Systane 0.3-0.4% Eye Drops] 1 D Own Med 0 each EYEBOTH BID [facility] Last Admin: 01/18/17 09:07 Dose: 1 each Polyethylene Glycol (Miralax) 17 gm PO DAILY PRN PRN Reason: Constipation Last Admin: 01/14/17 06:39 Dose: 17 gm Potassium Chloride (Pharmacy To Dose - Potassium Replacement) 1 dose .XX ASDIRECTED [facility] Saccharomyces Boulardii (Florastor) 250 mg PO BID [facility] Last Admin: 01/18/17 08:22 Dose: 250 mg Senna/Docusate Sodium (Senna Plus) 1 tab PO BID PRN PRN Reason: Constipation Simvastatin (Zocor) 20 mg PO BEDTIME [facility] Last Admin: 01/17/17 20:19 Dose: 20 mg Temazepam (Restoril) 7.5 mg PO BEDTIME PRN PRN Reason: Sleep Last Admin: 01/13/17 21:40 Dose: 7.5 mg Discontinued Medications Bumetanide (Bumex) 0.5 mg IVPUSH ONETIME ONE Stop: 01/17/17 21:01 Last Admin: 01/17/17 22:13 Dose: 0.5 mg Bumetanide (Bumex) 1 mg IVPUSH ONETIME ONE Stop: 01/18/17 12:06 Carbamazepine (Tegretol) 300 mg PO TID [facility] Last Admin: 01/12/17 16:28 Dose: 300 mg Carbamazepine (Tegretol) 200 mg PO TID [facility] Last Admin: 01/12/17 20:09 Dose: 200 mg Carbamazepine (Tegretol Tab) 200 mg PO TID [facility] Last Admin: 01/14/17 08:18 Dose: 200 mg Carbamazepine (Tegretol) 150 mg PO TID [facility] Last Admin: 01/14/17 16:01 Dose: Not Given Carbamazepine (Tegretol) 150 mg PO BID [facility] Last Admin: 01/17/17 08:45 Dose: 150 mg Diazepam (Valium.) 5 mg PO ONETIME ONE Stop: 01/14/17 11:07 Last Admin: 01/14/17 11:27 Dose: 5 mg Famotidine (Pepcid) 20 mg IVPUSH BID [facility] Stop: 01/16/17 23:59 Last Admin: 01/16/17 20:18 Dose: 20 mg Furosemide (Lasix) 20 mg PO DAILY PRN PRN Reason: Edema Furosemide (Lasix) 20 mg PO ONETIME ONE Stop: 01/17/17 07:31 Last Admin: 01/17/17 08:48 Dose: 20 mg Gabapentin (Neurontin) 100 mg PO DAILY [facility] Last Admin: 01/12/17 09:10 Dose: 100 mg Promethazine HCl 12.5 mg/ (Sodium Chloride) 50.5 mls @ 100 mls/hr IV Q6H PRN PRN Reason: Nausea/Vomiting Magnesium Sulfate 2 gm/ Premix 50 mls @ 25 mls/hr IV ONETIME ONE Stop: 01/13/17 12:59 Last Admin: 01/13/17 12:25 Dose: 25 mls/hr Dextrose/Sodium Chloride (Dextrose 5%-Normal Saline) 1,000 mls @ 75 mls/hr IV ASDIRECTED [facility] Last Admin: 01/17/17 04:53 Dose: 75 mls/hr Magnesium Sulfate 2 gm/ Premix 50 mls @ 25 mls/hr IV ONETIME ONE Stop: 01/15/17 10:59 Last Admin: 01/15/17 09:36 Dose: 25 mls/hr Azithromycin 500 mg/ Sodium (Chloride) 250 mls @ 250 mls/hr IV ONETIME ONE Stop: 01/15/17 20:25 Last Admin: 01/15/17 20:40 Dose: 250 mls/hr Ceftriaxone Sodium 1 gm/ (Sodium Chloride) 100 mls @ 200 mls/hr IV ONETIME ONE Stop: 01/15/17 21:00 Last Admin: 01/15/17 21:52 Dose: 200 mls/hr Ceftriaxone Sodium 1 gm/ (Sodium Chloride) 100 mls @ 200 mls/hr IV Q24H [facility] Last Admin: 01/16/17 19:36 Dose: Not Given Ceftriaxone Sodium 1 gm/ (Sodium Chloride) 100 mls @ 200 mls/hr IV Q24H [facility] Last Admin: 01/17/17 11:11 Dose: 200 mls/hr Azithromycin 500 mg/ Sodium (Chloride) 250 mls @ 250 mls/hr IV Q24H [facility] Last Admin: 01/17/17 10:41 Dose: Not Given Azithromycin 500 mg/ Sodium (Chloride) 250 mls @ 250 mls/hr IV ONETIME ONE Stop: 01/16/17 14:44 Last Admin: 01/16/17 14:20 Dose: 250 mls/hr Ceftriaxone Sodium 1 gm/ (Dextrose/Water) 100 mls @ 200 mls/hr IV Q24H [facility] Ceftriaxone Sodium 1 gm/ (Dextrose/Water) 100 mls @ 200 mls/hr IV Q24H [facility] Last Admin: 01/18/17 11:29 Dose: 200 mls/hr Lorazepam (Ativan) 0.25 mg IV Q6H PRN PRN Reason: Anxiety Last Admin: 01/17/17 05:53 Dose: 0.25 mg Lorazepam (Ativan) 0.25 mg IV ONETIME ONE Stop: 01/18/17 09:16 Last Admin: 01/18/17 09:29 Dose: 0.25 mg Magnesium Oxide (Magnesium Oxide) 400 mg PO ONETIME ONE Stop: 01/13/17 08:01 Last Admin: 01/13/17 12:13 Dose: Not Given Magnesium Oxide (Magnesium Oxide) 800 mg PO ONETIME ONE Stop: 01/18/17 08:31 Last Admin: 01/18/17 08:24 Dose: 800 mg Modafinil (Provigil) 50 mg PO DAILY [facility] Last Admin: 01/15/17 09:26 Dose: 50 mg Modafinil (Provigil) 100 mg PO DAILY [facility] Last Admin: 01/17/17 08:47 Dose: 100 mg Phenytoin Sodium (Phenytoin) 100 mg PO BID [facility] Last Admin: 01/15/17 20:46 Dose: Not Given Quetiapine Fumarate (Seroquel) 25 mg PO DAILY [facility] Last Admin: 01/15/17 09:26 Dose: 25 mg Quetiapine Fumarate (Seroquel) 25 mg PO ONETIME ONE Stop: 01/18/17 11:05 Last Admin: 01/18/17 11:23 Dose: 25 mg Saccharomyces Boulardii (Florastor) 250 mg PO DAILY [facility] Last Admin: 01/17/17 08:31 Dose: 250 mg - Exam Quality Assessment: Supplemental Oxygen, DVT Prophylaxis General: Alert HEENT: Pupils Equal, EOMI, Mucous Membr. Moist/[place] Neck: Supple Lungs: Normal Respiratory Effort, Decreased Breath Sounds (bilat bases), Rhonchi (rt sided), Wheezing (rt side) Cardiovascular: Irregular Rhythm GI/Abdominal Exam: Normal Bowel Sounds, Soft, Non-Tender (Female) Exam: Deferred Extremities: Normal Inspection, No Pedal Edema, Normal Capillary Refill Peripheral Pulses: 2+: Dorsalis Pedis (L), Dorsalis Pedis (R) Neurological: Other (garbled speech, disorientated, follows some commands but not all) Psy/Mental Status: Alert - Problem List & Annotations (1) Subdural hematoma, acute SNOMED Code(s): 31972472 Code(s): I62.01 - NONTRAUMATIC ACUTE SUBDURAL HEMORRHAGE Status: Acute Priority: High Current Visit: Yes (2) Altered mental status SNOMED Code(s): 414903156 Code(s): R41.82 - ALTERED MENTAL STATUS, UNSPECIFIED Status: Acute Priority: High Current Visit: Yes Qualifiers: Altered mental status type: disorientation Qualified Code(s): R41.0 - Disorientation, unspecified Annotation/Comment:: Improved significantly (3) Fall SNOMED Code(s): 5590411 Code(s): W19.XXXA - UNSPECIFIED FALL, INITIAL ENCOUNTER Status: Acute Priority: High Current Visit: Yes Qualifiers: Encounter type: initial encounter Qualified Code(s): W19.XXXA - Unspecified fall, initial encounter (4) A-fib SNOMED Code(s): 67216359 Code(s): I48.91 - UNSPECIFIED ATRIAL FIBRILLATION Status: Chronic Priority: High Current Visit: Yes Qualifiers: Atrial fibrillation type: unspecified Qualified Code(s): I48.91 - Unspecified atrial fibrillation (5) Hypovitaminosis D SNOMED Code(s): 69077634 Code(s): E55.9 - VITAMIN D DEFICIENCY, UNSPECIFIED Status: Chronic Priority: Medium Current Visit: Yes (6) Aspiration syndrome SNOMED Code(s): 60678456 Code(s): T17.900A - UNSP FB IN RESP TRACT, PART UNSP CAUSING ASPHYX, INIT Status: Acute Priority: High Current Visit: Yes Qualifiers: Encounter type: initial encounter Qualified Code(s): T17.900A - Unspecified foreign body in respiratory tract, part unspecified causing asphyxiation, initial encounter - Problem List Review Problem List Initiated/Reviewed/Updated: Yes - My Orders Last 24 Hours: My Active Orders 01/17/17 12:08 OT Evaluation and Treatment [CONS] Routine 01/17/17 21:00 Saccharomyces Boulardii [Florastor] 250 mg PO BID carBAMazepine [TEGretol Tab] 200 mg PO BID 01/18/17 08:30 Echo Comp wo Cont [US] Routine 01/18/17 09:00 EKG 12 Lead [EKG Documentation Completion] [RC] ROUTINE 01/18/17 12:00 Piperacillin/Tazobactam [Zosyn] 4.5 gm Dextrose 5% in Water 100 ml IV ONETIME 01/18/17 12:06 Diltiazem [Cardizem] 60 mg PO ONETIME ONE 01/18/17 20:00 Piperacillin/Tazobactam [Zosyn] 4.5 gm Dextrose 5% in Water 100 ml IV Q8H 01/19/17 05:11 BASIC METABOLIC PANEL,BMP [CHEM] AM C-REACTIVE PROTEIN [CHEM] AM CBC WITH AUTO DIFF [HEME] AM - Plan Plan:: Assessment/Plan: Acute: AMS/Delerium, Improved but fluctuant - She is on high dose anticonvulsant medications [employer]: Gabapentin, 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 - Hx of seizure disorder s/p hemorrhagic stroke in the past - She does not follow a Neurologist - PIANO PROFESSOR cont to follow - More anxious and agitated/restless today, ativan given, seroquel one time given- cont close monitoring Aspiration Pneumonia, New - She has been altered with fluctuating level of alertness - CXR shows right side pneumonia with small pleural effusion - Continue IV abx; consulted with pharmacy- zosyn and rocephin. Cont florastor BID - Supplemental O2, Routine RT care and Bronchodilators - Sputum Cx/Sx - Cont PIANO PROFESSOR evals ongoing daily Small Left Side Pleural Effusion - New abnormal finding on CXR - IS as directed - Aspiration precaution - Serial CXR as needed; will repeat CXR today--stable - IV bumex last night and this morning - BNP elevated at 5,000range - Echocardiogram ordered today Tachycardia- afib/flutter on telemetry -Unresponsive to IV lopressor, rec'd 3 doses overnight, rates remain 110-120 -EKG to be obtained -Repeat CXR with stable aspiration findings today -BNP/Echo as above -IV bumex -Cardizem 90mg PO one time now Subdural Hematoma and Acute Right Cortical Infarct, Stable - S/p Fall - Has hx/o brain bleed in the past - Head CT scan confirms it: 5 mm in the left temporo-parietal region and 7 mm in the right parietal region, MRI done following day shows slight worsening of bleed- see reports - Risk factor: On Warfarin, fall and hx of CVA/hemorrhagic with subsequent seizure disorder in the past - ED provider spoke to Dr. Schmidt, Neurosurgeon: recommend CT scan in 2 weeks then follow up in the office - Continue Neuro check Q4 - Continue to Hold Warfarin and ASA - Follow up MRI: essentially the same from previous study; no acute new abnormal findings - Follow up head CT done today with stable findings with areas of micro bleeding within prior noted areas of density/subdural bleeds. Reviewed with Dr. Nesbitt, will not resume anticoagulant on discharge based on these findings. Generalized Weakness, Unchanged - Likely 2.2 Above and poor intake - Continue PT/OT - Thyroid panel: normal - Vit D level: low, started supplement as below Vitamin D-Deficiency, New - Vit D level 21 (low) - Continue Vit D supplement Subtherapeutic INR, Unchanged - Last INR 1.18 - Continue to hold off Warfarin/ASA due to brain bleed - Recommend switching to DOACs (defer to PCP after discharge) Right Shoulder Pain, New - S/p Fall - Tender with palpation and pain with active movement - XR with 3 views to r/o acute fracture is negative - PRN pain medication; PT/OT Resolved: S/P Fall at [facility] - High Fall Risk - Polypharmacy - Fall precautions in place Chronic: Impaired Vision HTN- stable HLD- will check lipid panel Atrial Fibrillation via Holter Monitor Mitral Valve Insufficiency GERD OA/DJD Osteoporosis Hypothyroidism- stable Trigerminal Neuralgia, Continue Carbamezapin Inflammatory Spondylopathy Hx/o DVT/TIA Hx/o Brain Bleed Hx/o seizure s/p hemorrhagic stroke Anxiety Plan: Continues with fluctuating LOC/alertness and metal status; aspiration pneumonia , microbleeds within prior areas of subdural bleeds on head CT today. Prognosis is guarded to poor. Dr. Nesbitt has been updating family daily. Routine AM Labs Continue Neuro check Q4, PIANO PROFESSOR and PT/OT DVT PPx: SCDs GI prophylaxis: H2B IV BID Aspiration/Fall/Seizure Precautions CM/SW for d/c planning--Likely DC to [facility] tomorrow for rehab stay, Dr. Chand will be assuming/accepting her care there. Code Status: DNR/DNI LOS > 96 hours due to continued monitoring and therapies with ongoing assessments, need for repeat brain imaging to follow bleeds, and for possible SNF/NH placement.
[2017-01-18] MEDS ORDERED: Diltiazem IR 60 MG Tab PO ONE (12:15)
[2017-01-18] MEDS ORDERED: Diltiazem IR 30 MG Tab PO ONE (12:15)
[2017-01-18] MEDS: LORazepam 2 MG/ML MDV IVPUSH PRN (14:41)
[2017-01-18] MEDS: Piperacillin/Tazobactam 4.5 GM in Dextrose 5% in Water 100 ML IV SCH ×2 (20:11)
[2017-01-18] MEDS: Simvastatin 20 MG Tab PO SCH ×2 (20:23→22:48)
[2017-01-18] MEDS: CYCLOSPORINE EYEBOTH SCH (20:49)
[2017-01-18] MEDS ORDERED: Acetaminophen 650 MG Supp RECTAL PRN (22:51)
[2017-01-19] MEDS: Ondansetron 4 MG Tab.DIS PO SCH ×5 (00:05→22:01)
[2017-01-19] MEDS: metroNIDAZOLE/Normal Saline 500 MG in Premix Bag 1 BAG IV SCH ×3 (00:06→16:30)
[2017-01-19] MEDS: Metoprolol Tartrate 5 MG/5 ML SDV IVPUSH PRN ×2 (01:42→06:13)
[2017-01-19] MEDS: Bisacodyl 5 MG Tab PO PRN (04:58)
[2017-01-19] MEDS: Piperacillin/Tazobactam 4.5 GM in Dextrose 5% in Water 100 ML IV SCH ×6 (04:58→20:22)
[2017-01-19] MEDS: Levothyroxine 88 MCG Tab PO SCH (04:59)
[2017-01-19] MEDS ORDERED: Bumetanide 1 MG/4 ML MDV IVPUSH ONE ×2 (07:00)
[2017-01-19] MEDS ORDERED: Diltiazem 120 MG Cap.CD PO SCH (07:30)
--- NOTE | 2017-01-19 08:01 | PCM.PN ---
- General Info Date of Service: 01/19/17 Admission Dx/Problem (Free Text): Brain Bleed Chelsea is seen this morning. She is more awake and alert; answering questions appropriately most of the time this morning. Hallucinations are minimal this morning. She slept most of the night. PO Seroquel is scheduled daily. AIR TRAFFIC CONTROL SPECIALIST worked with her early this am, she did "wonderfully", even was able to perform some exercises with her this morning. She continues to be tachycardic with rates 110-120; IV lopressor has been given with little to no improvement. She rec'd extra 90mg PO of cardizem yesterday afternoon with minimal improvements. Spoke with son and reviewed case with him. Reviewed options with Dr. Nesbitt. Functional Status: Reports: Pain Controlled, Tolerating Diet, Ambulating ( improved, with assist of 2), Urinating - Review of Systems General: Reports: Weakness. Denies: Fever HEENT: Denies: Headaches (denies) Pulmonary: Denies: Shortness of Breath (denies) Cardiovascular: Denies: Chest Pain (denies) Gastrointestinal: Denies: Abdominal Pain (denies) Neurological: Reports: Confusion (improved this morning) Psychiatric: Reports: Confusion (improved this morning), Hallucinations ( significantly improved to resolved this morning) - Patient Data Vitals - Most Recent: Last Vital Signs Temp 98.4 F 01/19/17 04:57 Pulse 124 H 01/19/17 06:13 Resp 16 01/19/17 04:57 BP 129/71 01/19/17 06:13 Pulse Ox 96 01/19/17 04:57 Weight - Most Recent: 135 lb 12.8 oz I&O - Last 24 Hours: Intake & Output 01/18/17 01/19/17 01/19/17 22:59 06:59 14:59 Intake Total 400 200 Balance 400 200 Lab Results Last 24 Hours: Laboratory Results - last 24 hr 01/18/17 01/18/17 01/19/17 Range/Units 06:30 06:30 05:45 WBC 7.13 (3.98-10.04) K/mm3 RBC 3.79 L (3.98-5.22) M/mm3 Hgb 11.3 (11.2-15.7) gm/L Hct 35.2 (34.1-44.9) % MCV 92.9 (79.4-94.8) fl MCH 29.8 (25.6-32.2) pg MCHC 32.1 L (32.2-35.5) g/dl RDW Std Deviation 48.3 H (36.4-46.3) fL Plt Count 196 (182-369) K/mm3 MPV 10.0 (9.4-12.3) fl Neut % (Auto) 59.9 (34.0-71.1) % Lymph % (Auto) 13.7 L (19.3-51.7) % [place] % (Auto) 18.7 H (4.7-12.5) % Eos % (Auto) 7.0 H (0.7-5.8) Baso % (Auto) 0.4 (0.1-1.2) % Neut # (Auto) 4.27 (1.56-6.13) K/mm3 Lymph # (Auto) 0.98 L (1.18-3.74) K/mm3 [place] # (Auto) 1.33 H (0.24-0.36) K/mm3 Eos # (Auto) 0.50 H (0.04-0.36) K/mm3 Baso # (Auto) 0.03 (0.01-0.08) K/mm3 Manual Slide Review Abnormal smear Abnormal smear Sodium (136-145) mEq/L Potassium (3.5-5.1) mEq/L Chloride (98-107) mEq/L Carbon Dioxide (21-32) mEq/L Anion Gap (5-15) BUN (7-18) mg/dL Creatinine (0.55-1.02) mg/dL Est Cr Clr Drug Dosing mL/min Estimated GFR (MDRD) (>60) mL/min BUN/Creatinine Ratio (14-18) Glucose (83-115) mg/dL Calcium (8.5-10.1) mg/dL C-Reactive Protein (<1.0) mg/dL NT-Pro-B Natriuret Pep 5372 H (0-450) pg/mL 01/19/17 Range/Units 05:45 WBC (3.98-10.04) K/mm3 RBC (3.98-5.22) M/mm3 Hgb (11.2-15.7) gm/L Hct (34.1-44.9) % MCV (79.4-94.8) fl MCH (25.6-32.2) pg MCHC (32.2-35.5) g/dl RDW Std Deviation (36.4-46.3) fL Plt Count (182-369) K/mm3 MPV (9.4-12.3) fl Neut % (Auto) (34.0-71.1) % Lymph % (Auto) (19.3-51.7) % [place] % (Auto) (4.7-12.5) % Eos % (Auto) (0.7-5.8) Baso % (Auto) (0.1-1.2) % Neut # (Auto) (1.56-6.13) K/mm3 Lymph # (Auto) (1.18-3.74) K/mm3 [place] # (Auto) (0.24-0.36) K/mm3 Eos # (Auto) (0.04-0.36) K/mm3 Baso # (Auto) (0.01-0.08) K/mm3 Manual Slide Review Sodium 143 (136-145) mEq/L Potassium 3.9 (3.5-5.1) mEq/L Chloride 104 (98-107) mEq/L Carbon Dioxide 30 (21-32) mEq/L Anion Gap 12.9 (5-15) BUN 23 H (7-18) mg/dL Creatinine 1.0 (0.55-1.02) mg/dL Est Cr Clr Drug Dosing 33.41 mL/min Estimated GFR (MDRD) 53 (>60) mL/min BUN/Creatinine Ratio 23.0 H (14-18) Glucose 104 (83-115) mg/dL Calcium 9.3 (8.5-10.1) mg/dL C-Reactive Protein 28.3 H* (<1.0) mg/dL NT-Pro-B Natriuret Pep (0-450) pg/mL Boy Results Last 24 Hours: Microbiology 01/15/17 20:20 Aerobic Blood Culture - Preliminary Blood NO GROWTH AFTER 3 DAYS Anaerobic Blood Culture - Preliminary NO GROWTH AFTER 3 DAYS 01/15/17 20:30 Aerobic Blood Culture - Preliminary Blood NO GROWTH AFTER 3 DAYS Anaerobic Blood Culture - Preliminary NO GROWTH AFTER 3 DAYS Med Orders - Current: Current Medications Acetaminophen (Tylenol) 650 mg PO Q4H PRN PRN Reason: Pain (Mild 1-3)/fever Last Admin: 01/16/17 14:16 Dose: 650 mg Acetaminophen (Tylenol) 650 mg RECTAL Q4H PRN PRN Reason: Pain/Fever Hydrocodone Bitart/Acetaminophen ([place] 325-5 Mg) 1 tab PO Q4H PRN PRN Reason: Pain (moderate 4-6) Albuterol/Ipratropium (Duoneb 3.0-0.5 Mg/3 Ml) 3 ml NEB Q4H PRN PRN Reason: Shortness Of Breath/wheezing Bisacodyl (Dulcolax) 5 mg PO DAILY PRN PRN Reason: Constipation Last Admin: 01/19/17 04:58 Dose: 5 mg Bisacodyl (Dulcolax) 10 mg RECTAL DAILY PRN PRN Reason: Constipation Last Admin: 01/15/17 06:31 Dose: 10 mg Carbamazepine (Tegretol Tab) 200 mg PO BID [facility] Last Admin: 01/18/17 22:47 Dose: Not Given Cholecalciferol (Vitamin D3) 2,000 units PO DAILY [facility] Last Admin: 01/18/17 08:19 Dose: 2,000 units Diltiazem HCl (Cardizem Cd) 120 mg PO DAILY [facility] Docusate Sodium (Colace) 100 mg PO BID PRN PRN Reason: Constipation Famotidine (Pepcid) 20 mg IVPUSH DAILY [facility] Last Admin: 01/18/17 08:40 Dose: 20 mg Hydralazine HCl (Apresoline) 10 mg IVPUSH Q4H PRN PRN Reason: Hypertension Hydromorphone HCl (Dilaudid) 0.25 mg IVPUSH Q2H PRN PRN Reason: Pain (severe 7-10) Last Admin: 01/18/17 19:12 Dose: 0.25 mg Metronidazole 500 mg/ Premix 100 mls @ 100 mls/hr IV Q8H [facility] Last Admin: 01/19/17 00:06 Dose: 100 mls/hr Piperacillin Sod/Tazobactam (Sod 4.5 gm/ Dextrose/Water) 100 mls @ 25 mls/hr IV Q8H [facility] Last Admin: 01/19/17 04:58 Dose: 25 mls/hr Levothyroxine Sodium (Synthroid) 88 mcg PO ACBRK [facility] Last Admin: 01/19/17 04:59 Dose: 88 mcg Lisinopril (Prinivil) 20 mg PO DAILY [facility] Last Admin: 01/18/17 08:22 Dose: 20 mg Lorazepam (Ativan) 2 mg IVPUSH Q4H PRN PRN Reason: Seizures Lorazepam (Ativan) 0.25 mg IVPUSH Q6H PRN PRN Reason: Anxiety Last Admin: 01/18/17 14:41 Dose: 0.25 mg Magnesium Sulfate (Pharmacy To Dose - Magnesium Replacement) 1 dose .XX ASDIRECTED [facility] Metoprolol Succinate (Toprol Xl) 100 mg PO BID [facility] Last Admin: 01/18/17 22:48 Dose: Not Given Metoprolol Tartrate (Lopressor) 5 mg IVPUSH Q4H PRN PRN Reason: Tachycardia Last Admin: 01/19/17 06:13 Dose: 5 mg Ondansetron HCl (Zofran) 4 mg IV Q6H PRN PRN Reason: Nausea/Vomiting Last Admin: 01/14/17 09:42 Dose: 4 mg Ondansetron HCl (Zofran Odt) 4 mg PO Q6H [facility] Last Admin: 01/19/17 04:58 Dose: 4 mg Cyclosporine ( Restasis) Ophth Solution 0 each EYEBOTH BID [facility] Last Admin: 01/18/17 20:49 Dose: 1 each [Systane 0.3-0.4% Eye Drops] 1 D Own Med 0 each EYEBOTH BID [facility] Last Admin: 01/18/17 20:47 Dose: 1 each Polyethylene Glycol (Miralax) 17 gm PO DAILY PRN PRN Reason: Constipation Last Admin: 01/14/17 06:39 Dose: 17 gm Potassium Chloride (Pharmacy To Dose - Potassium Replacement) 1 dose .XX ASDIRECTED [facility] Quetiapine Fumarate (Seroquel) 25 mg PO DAILY [facility] Saccharomyces Boulardii (Florastor) 250 mg PO BID [facility] Last Admin: 01/18/17 22:47 Dose: Not Given Senna/Docusate Sodium (Senna Plus) 1 tab PO BID PRN PRN Reason: Constipation Simvastatin (Zocor) 20 mg PO BEDTIME [facility] Last Admin: 01/18/17 22:48 Dose: Not Given Temazepam (Restoril) 7.5 mg PO BEDTIME PRN PRN Reason: Sleep Last Admin: 01/13/17 21:40 Dose: 7.5 mg Discontinued Medications Bumetanide (Bumex) 0.5 mg IVPUSH ONETIME ONE Stop: 01/17/17 21:01 Last Admin: 01/17/17 22:13 Dose: 0.5 mg Bumetanide (Bumex) 1 mg IVPUSH ONETIME ONE Stop: 01/18/17 12:06 Last Admin: 01/18/17 13:20 Dose: 1 mg Bumetanide (Bumex) 0.5 mg IVPUSH ONETIME ONE Stop: 01/19/17 07:01 Bumetanide (Bumex) 1 mg IVPUSH ONETIME ONE Stop: 01/19/17 07:01 Last Admin: 01/19/17 06:15 Dose: 1 mg Carbamazepine (Tegretol) 300 mg PO TID [facility] Last Admin: 01/12/17 16:28 Dose: 300 mg Carbamazepine (Tegretol) 200 mg PO TID [facility] Last Admin: 01/12/17 20:09 Dose: 200 mg Carbamazepine (Tegretol Tab) 200 mg PO TID [facility] Last Admin: 01/14/17 08:18 Dose: 200 mg Carbamazepine (Tegretol) 150 mg PO TID [facility] Last Admin: 01/14/17 16:01 Dose: Not Given Carbamazepine (Tegretol) 150 mg PO BID [facility] Last Admin: 01/17/17 08:45 Dose: 150 mg Diazepam (Valium.) 5 mg PO ONETIME ONE Stop: 01/14/17 11:07 Last Admin: 01/14/17 11:27 Dose: 5 mg Diltiazem HCl (Cardizem Cd) 120 mg PO DAILY [facility] Last Admin: 01/18/17 08:19 Dose: 120 mg Diltiazem HCl (Cardizem) 60 mg PO ONETIME ONE Stop: 01/18/17 12:16 Last Admin: 01/18/17 13:20 Dose: 60 mg Diltiazem HCl (Cardizem) 30 mg PO ONETIME ONE Stop: 01/18/17 12:16 Last Admin: 01/18/17 13:20 Dose: 30 mg Diltiazem HCl (Cardizem Cd) 240 mg PO DAILY [facility] Famotidine (Pepcid) 20 mg IVPUSH BID [facility] Stop: 01/16/17 23:59 Last Admin: 01/16/17 20:18 Dose: 20 mg Furosemide (Lasix) 20 mg PO DAILY PRN PRN Reason: Edema Furosemide (Lasix) 20 mg PO ONETIME ONE Stop: 01/17/17 07:31 Last Admin: 01/17/17 08:48 Dose: 20 mg Gabapentin (Neurontin) 100 mg PO DAILY [facility] Last Admin: 01/12/17 09:10 Dose: 100 mg Promethazine HCl 12.5 mg/ (Sodium Chloride) 50.5 mls @ 100 mls/hr IV Q6H PRN PRN Reason: Nausea/Vomiting Magnesium Sulfate 2 gm/ Premix 50 mls @ 25 mls/hr IV ONETIME ONE Stop: 01/13/17 12:59 Last Admin: 01/13/17 12:25 Dose: 25 mls/hr Dextrose/Sodium Chloride (Dextrose 5%-Normal Saline) 1,000 mls @ 75 mls/hr IV ASDIRECTED [facility] Last Admin: 01/17/17 04:53 Dose: 75 mls/hr Magnesium Sulfate 2 gm/ Premix 50 mls @ 25 mls/hr IV ONETIME ONE Stop: 01/15/17 10:59 Last Admin: 01/15/17 09:36 Dose: 25 mls/hr Azithromycin 500 mg/ Sodium (Chloride) 250 mls @ 250 mls/hr IV ONETIME ONE Stop: 01/15/17 20:25 Last Admin: 01/15/17 20:40 Dose: 250 mls/hr Ceftriaxone Sodium 1 gm/ (Sodium Chloride) 100 mls @ 200 mls/hr IV ONETIME ONE Stop: 01/15/17 21:00 Last Admin: 01/15/17 21:52 Dose: 200 mls/hr Ceftriaxone Sodium 1 gm/ (Sodium Chloride) 100 mls @ 200 mls/hr IV Q24H [facility] Last Admin: 01/16/17 19:36 Dose: Not Given Ceftriaxone Sodium 1 gm/ (Sodium Chloride) 100 mls @ 200 mls/hr IV Q24H [facility] Last Admin: 01/17/17 11:11 Dose: 200 mls/hr Azithromycin 500 mg/ Sodium (Chloride) 250 mls @ 250 mls/hr IV Q24H [facility] Last Admin: 01/17/17 10:41 Dose: Not Given Azithromycin 500 mg/ Sodium (Chloride) 250 mls @ 250 mls/hr IV ONETIME ONE Stop: 01/16/17 14:44 Last Admin: 01/16/17 14:20 Dose: 250 mls/hr Ceftriaxone Sodium 1 gm/ (Dextrose/Water) 100 mls @ 200 mls/hr IV Q24H [facility] Ceftriaxone Sodium 1 gm/ (Dextrose/Water) 100 mls @ 200 mls/hr IV Q24H [facility] Last Admin: 01/18/17 11:29 Dose: 200 mls/hr Piperacillin Sod/Tazobactam (Sod 4.5 gm/ Dextrose/Water) 100 mls @ 200 mls/hr IV ONETIME ONE Stop: 01/18/17 12:29 Last Admin: 01/18/17 13:21 Dose: 200 mls/hr Lorazepam (Ativan) 0.25 mg IV Q6H PRN PRN Reason: Anxiety Last Admin: 01/17/17 05:53 Dose: 0.25 mg Lorazepam (Ativan) 0.25 mg IV ONETIME ONE Stop: 01/18/17 09:16 Last Admin: 01/18/17 09:29 Dose: 0.25 mg Magnesium Oxide (Magnesium Oxide) 400 mg PO ONETIME ONE Stop: 01/13/17 08:01 Last Admin: 01/13/17 12:13 Dose: Not Given Magnesium Oxide (Magnesium Oxide) 800 mg PO ONETIME ONE Stop: 01/18/17 08:31 Last Admin: 01/18/17 08:24 Dose: 800 mg Metoprolol Succinate (Toprol Xl) 50 mg PO DAILY [facility] Last Admin: 01/18/17 08:22 Dose: 50 mg Modafinil (Provigil) 50 mg PO DAILY [facility] Last Admin: 01/15/17 09:26 Dose: 50 mg Modafinil (Provigil) 100 mg PO DAILY [facility] Last Admin: 01/17/17 08:47 Dose: 100 mg Phenytoin Sodium (Phenytoin) 100 mg PO BID [facility] Last Admin: 01/15/17 20:46 Dose: Not Given Quetiapine Fumarate (Seroquel) 25 mg PO DAILY [facility] Last Admin: 01/15/17 09:26 Dose: 25 mg Quetiapine Fumarate (Seroquel) 25 mg PO ONETIME ONE Stop: 01/18/17 11:05 Last Admin: 01/18/17 11:23 Dose: 25 mg Saccharomyces Boulardii (Florastor) 250 mg PO DAILY [facility] Last Admin: 01/17/17 08:31 Dose: 250 mg - Exam Quality Assessment: DVT Prophylaxis General: Alert, No Acute Distress HEENT: Pupils Equal, EOMI, Mucous Membr. Moist/[place] Neck: Supple Lungs: Clear to Auscultation, Normal Respiratory Effort, Decreased Breath Sounds (bases) Cardiovascular: Irregular Rhythm GI/Abdominal Exam: Normal Bowel Sounds, Soft, Non-Tender (Female) Exam: Deferred Extremities: Normal Inspection, No Pedal Edema, Normal Capillary Refill Peripheral Pulses: 2+: Dorsalis Pedis (L), Dorsalis Pedis (R) Neurological: No: Normal Speech, Strength Equal Bilateral Psy/Mental Status: Alert, Anxious (improved), Hallucinations (improved to resolved) - Problem List & Annotations (1) Atrial fibrillation with RVR SNOMED Code(s): 376005722436093 Code(s): I48.91 - UNSPECIFIED ATRIAL FIBRILLATION Status: Acute Priority : High Current Visit: Yes (2) Subdural hematoma, acute SNOMED Code(s): 86908689 Code(s): I62.01 - NONTRAUMATIC ACUTE SUBDURAL HEMORRHAGE Status: Acute Priority: High Current Visit: Yes (3) Altered mental status SNOMED Code(s): 123653955 Code(s): R41.82 - ALTERED MENTAL STATUS, UNSPECIFIED Status: Acute Priority: High Current Visit: Yes Qualifiers: Altered mental status type: disorientation Qualified Code(s): R41.0 - Disorientation, unspecified Annotation/Comment:: Improved significantly (4) Fall SNOMED Code(s): 3490006 Code(s): W19.XXXA - UNSPECIFIED FALL, INITIAL ENCOUNTER Status: Acute Priority: High Current Visit: Yes Qualifiers: Encounter type: initial encounter Qualified Code(s): W19.XXXA - Unspecified fall, initial encounter (5) Hypovitaminosis D SNOMED Code(s): 10988183 Code(s): E55.9 - VITAMIN D DEFICIENCY, UNSPECIFIED Status: Chronic Priority: Medium Current Visit: Yes (6) Aspiration syndrome SNOMED Code(s): 44280789 Code(s): T17.900A - UNSP FB IN RESP TRACT, PART UNSP CAUSING ASPHYX, INIT Status: Acute Priority: High Current Visit: Yes Qualifiers: Encounter type: initial encounter Qualified Code(s): T17.900A - Unspecified foreign body in respiratory tract, part unspecified causing asphyxiation, initial encounter - Problem List Review Problem List Initiated/Reviewed/Updated: Yes - My Orders Last 24 Hours: My Active Orders 01/18/17 20:00 Piperacillin/Tazobactam [Zosyn] 4.5 gm Dextrose 5% in Water 100 ml IV Q8H 01/19/17 05:45 BASIC METABOLIC PANEL,BMP [CHEM] AM C-REACTIVE PROTEIN [CHEM] AM - Plan Plan:: Assessment/Plan: Acute: AMS/Delerium, Improved but fluctuant---now with hallucinations but less aggitation/anxiety - She is on high dose anticonvulsant medications 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 - Hx of seizure disorder s/p hemorrhagic stroke in the past - She does not follow a Neurologist - AIR TRAFFIC CONTROL SPECIALIST cont to follow - More anxious and agitated/restless--did rest better last night. Seroquel scheduled daily. Ativan PRN for restlessness - Has been off of 1:1 care since yesterday afternoon Aspiration Pneumonia, New - She has been altered with fluctuating level of alertness - CXR shows right side pneumonia with small pleural effusion - Continue IV abx; consulted with pharmacy- zosyn and rocephin. Cont florastor BID - Supplemental O2, Routine RT care and Bronchodilators - Sputum Cx/Sx--unable to obtain as patient does not understand/unable to follow instructions; as has been on abx tx for days now will cxl orders. - Cont AIR TRAFFIC CONTROL SPECIALIST evals ongoing daily Small Left Side Pleural Effusion - New abnormal finding on CXR - IS as directed- if able to cooperate - Aspiration precaution - Serial CXR as needed; will repeat CXR -stable - IV bumex last night and this morning - BNP elevated at 5,000range, repeat today - Echocardiogram ordered, results pending Tachycardia- afib/flutter on telemetry -Unresponsive to IV lopressor, Dr. Nesbitt increased toprol to 100mg BID however dose was held last night, reason documented was "patient not alert enough" to take pills -EKG obtained -Repeat CXR with stable aspiration findings -BNP/Echo as above -IV bumex -Cardizem 90mg PO one time given yesterday without improvements -Reviewed HR's and above past treatments, minimally repsonsive heartrates with Dr. Nesbitt. Decision to transfer patient to ICU for cardizem drip and close monitoring. Dr. Nesbitt reviewed with son who is in agreement to POC. 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 Schmidt, Neurosurgeon: recommend CT scan in 2 weeks then follow up in the office - Continue Neuro check Q4 - Continue to Hold Warfarin and ASA - Follow up MRI: essentially the same from previous study; no acute new abnormal findings - Follow up head CT done today with stable findings with areas of micro bleeding within prior noted areas of density/subdural bleeds. Reviewed with Dr. Nesbitt, will not resume anticoagulant on discharge based on these findings. Generalized Weakness, Unchanged - Likely 2.2 Above and poor intake - Continue PT/OT - Thyroid panel: normal - Vit D level: low, started supplement as below Vitamin D-Deficiency, New - Vit D level 21 (low) - Continue Vit D supplement Subtherapeutic INR, Unchanged---Holding warfarin due to continued areas of micro bleeding on head CT. - Last INR 1.18 - Continue to hold off Warfarin/ASA due to brain bleed - Recommend switching to DOACs (defer to PCP after discharge) Right Shoulder Pain, New - S/p Fall - Tender with palpation and pain with active movement - XR with 3 views to r/o acute fracture is negative - PRN pain medication; PT/OT Resolved: S/P Fall at [facility] - High Fall Risk - Polypharmacy - Fall precautions in place Chronic: Impaired Vision HTN- stable, 120-130's/80-90's HLD- will check lipid panel Atrial Fibrillation via Holter Monitor ---afib with RVR not responding to tx; will transfer patient to ICU for further treatment and closer monitoring. Mitral Valve Insufficiency GERD- GI prophylax OA/DJD Osteoporosis Hypothyroidism- stable Trigerminal Neuralgia, Continue Carbamezapin Inflammatory Spondylopathy Hx/o DVT/TIA Hx/o Brain Bleed Hx/o seizure s/p hemorrhagic stroke Anxiety Plan: As above will transfer to ICU status to start cardizem drip for heart rate control and closer monitoring Continues with fluctuating LOC/alertness--improved today; aspiration pneumonia, microbleeds within prior areas of subdural bleeds on head CT. Prognosis is guarded to poor. Dr. Nesbitt has been updating family daily. Routine AM Labs Continue Neuro check Q4, AIR TRAFFIC CONTROL SPECIALIST and PT/OT DVT PPx: SCDs GI prophylaxis: H2B IV BID Aspiration/Fall/Seizure Precautions CM/SW for d/c planning--Likely DC to [facility] for rehab stay once medically stable. Currently mental status has been very fluctuant. Dr. Chand will be assuming/accepting her care at [facility] once ready. Code Status: DNR/DNI LOS > 96 hours due to afib with RVR, not responding to PO meds- transfer to ICU status for heart rate control and closer monitoring; therapies with ongoing assessments, need for repeat brain imaging to follow bleeds, and for need for SNF/NH placement. Dr. Nesbitt also did see and examine patient this morning and spoke with family re: above noted POC.
[2017-01-19] MEDS: carBAMazepine 200 MG Tab PO SCH ×2 (08:58→21:51)
[2017-01-19] MEDS: Lisinopril 20 MG Tab PO SCH (08:58)
[2017-01-19] MEDS: Cholecalciferol (Vitamin D3) 1,000 Unit Tab PO SCH (08:58)
[2017-01-19] MEDS: CYCLOSPORINE EYEBOTH SCH ×2 (08:59→22:19)
[2017-01-19] MEDS: Famotidine 20 MG/2 ML SDV IVPUSH SCH (09:00)
[2017-01-19] MEDS: QUEtiapine 25 MG Tab PO SCH (09:01)
[2017-01-19] MEDS: Metoprolol Succinate 50 MG Tab.ER PO SCH ×2 (09:02→21:51)
[2017-01-19] MEDS: Diltiazem 120 MG Cap.CD PO SCH (09:03)
[2017-01-19] MEDS: Saccharomyces Boulardii (Probiotic) 250 MG Cap PO SCH ×2 (09:11→22:19)
[2017-01-19] MEDS ORDERED: Diltiazem 25 MG/5 ML SDV IVPUSH ONE (11:35)
[2017-01-19] MEDS ORDERED: Esmolol/Normal Saline 2.5 GM/250 ML BAG IV SCH (12:00)
--- NOTE | 2017-01-19 12:20 | CR ---
Chest: Portable view of the chest was obtained. Comparison: Previous chest x-ray of 01/18/17. Diffuse increased density within the right chest is noted and appears stable. Linear densities behind the left heart are seen which remain stable. Blunting of the costophrenic angles are seen which is stable. Heart size and mediastinum are unchanged. Bony structures are also unchanged. Impression: 1. Findings as noted above. No significant change is identified from prior chest x-ray. Diagnostic code #3
[2017-01-19] MEDS ORDERED: Diltiazem 125 MG in Sodium Chloride 0.9% 100 ML IV SCH (12:30)
--- NOTE | 2017-01-19 13:18 | PCM.SN ---
- Free Text/Narrative Note: Spoke to son this am and updated him about his mom's clinical progress. He was informed she had a brain bleed and a stroke. She also had aspiration pneumonia and likely delirium. At this point her HR is not well controlled. We adjusted her BB and received a PRN dose this and his HR marginally improved to the teens. Consider transfer to ICU for possible close monitoring and rate control drip.
[2017-01-19] MEDS: Simvastatin 20 MG Tab PO SCH (21:50)
[2017-01-20] MEDS: metroNIDAZOLE/Normal Saline 500 MG in Premix Bag 1 BAG IV SCH ×2 (00:24→09:46)
[2017-01-20] MEDS: LORazepam 2 MG/ML MDV IVPUSH PRN (00:26)
[2017-01-20] MEDS ORDERED: Diltiazem 125 MG in Sodium Chloride 0.9% 100 ML IV SCH (03:00)
[2017-01-20] MEDS: Piperacillin/Tazobactam 4.5 GM in Dextrose 5% in Water 100 ML IV SCH ×4 (05:37→11:44)
[2017-01-20] MEDS: Ondansetron 4 MG Tab.DIS PO SCH ×4 (05:37→22:25)
[2017-01-20] MEDS: Levothyroxine 88 MCG Tab PO SCH (05:37)
[2017-01-20] MEDS: Saccharomyces Boulardii (Probiotic) 250 MG Cap PO SCH ×2 (07:59→20:29)
[2017-01-20] MEDS: carBAMazepine 200 MG Tab PO SCH ×2 (07:59→20:23)
[2017-01-20] MEDS: QUEtiapine 25 MG Tab PO SCH (08:00)
[2017-01-20] MEDS: Cholecalciferol (Vitamin D3) 1,000 Unit Tab PO SCH (08:00)
[2017-01-20] MEDS: Lisinopril 20 MG Tab PO SCH (08:00)
[2017-01-20] MEDS: Diltiazem 120 MG Cap.CD PO SCH (08:01)
[2017-01-20] MEDS: Famotidine 20 MG/2 ML SDV IVPUSH SCH (08:01)
[2017-01-20] MEDS: Metoprolol Succinate 50 MG Tab.ER PO SCH ×2 (08:01→20:23)
[2017-01-20] MEDS: CYCLOSPORINE EYEBOTH SCH ×2 (08:10→20:30)
--- NOTE | 2017-01-20 13:00 | PCM.PN ---
- General Info Date of Service: 01/20/17 Admission Dx/Problem (Free Text): Brain Bleed Subjective Update: Follow up Functional Status: Reports: Pain Controlled, Tolerating Diet, Urinating. Denies : Ambulating, New Symptoms - Review of Systems General: Denies: Fever, Chills HEENT: Reports: No Symptoms Pulmonary: Denies: Shortness of Breath Cardiovascular: Denies: Chest Pain Gastrointestinal: Denies: Abdominal Pain, Nausea, Vomiting Genitourinary: Reports: No Symptoms Musculoskeletal: Reports: No Symptoms Skin: Denies: Cyanosis, Pallor, Diaphoresis Neurological: Reports: Confusion, Pre-Existing Deficit, Difficulty Walking, Weakness, Gait Disturbance Psychiatric: Denies: Depression, Anxiety, Hallucinations Systems Review Comment:: Her heart rate still uncontrolled. 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 Her HR is much better now but her pressures now in the hypotensive range. She is sedated and less responsive. However she respond well to sternal rub or painful stimuli. She is afebrile and w/o leukocytosis. - Patient Data Vitals - Most Recent: Last Vital Signs Temp 37.2 C 01/20/17 07:00 Pulse 85 01/20/17 10:00 Resp 25 H 01/20/17 12:00 BP 80/45 L 01/20/17 12:00 Pulse Ox 96 01/20/17 10:00 Weight - Most Recent: 62.868 kg I&O - Last 24 Hours: Intake & Output 01/19/17 01/20/17 01/20/17 22:59 06:59 14:59 Intake Total 100 200 160 Output Total 0 Balance 100 200 160 Boy Results Last 24 Hours: Microbiology 01/15/17 20:20 Aerobic Blood Culture - Preliminary Blood NO GROWTH AFTER 4 DAYS Anaerobic Blood Culture - Preliminary NO GROWTH AFTER 4 DAYS 01/15/17 20:30 Aerobic Blood Culture - Preliminary Blood NO GROWTH AFTER 4 DAYS Anaerobic Blood Culture - Preliminary NO GROWTH AFTER 4 DAYS Med Orders - Current: Current Medications Acetaminophen (Tylenol) 650 mg PO Q4H PRN PRN Reason: Pain (Mild 1-3)/fever Last Admin: 01/16/17 14:16 Dose: 650 mg Acetaminophen (Tylenol) 650 mg RECTAL Q4H PRN PRN Reason: Pain/Fever Hydrocodone Bitart/Acetaminophen (Oliver 325-5 Mg) 1 tab PO Q4H PRN PRN Reason: Pain (moderate 4-6) Albuterol/Ipratropium (Duoneb 3.0-0.5 Mg/3 Ml) 3 ml NEB Q4H PRN PRN Reason: Shortness Of Breath/wheezing Bisacodyl (Dulcolax) 5 mg PO DAILY PRN PRN Reason: Constipation Last Admin: 01/19/17 04:58 Dose: 5 mg Bisacodyl (Dulcolax) 10 mg RECTAL DAILY PRN PRN Reason: Constipation Last Admin: 01/15/17 06:31 Dose: 10 mg Carbamazepine (Tegretol Tab) 200 mg PO BID [facility] Last Admin: 01/20/17 07:59 Dose: 200 mg Cholecalciferol (Vitamin D3) 2,000 units PO DAILY [facility] Last Admin: 01/20/17 08:00 Dose: 2,000 units Diltiazem HCl (Cardizem Cd) 120 mg PO DAILY [facility] Last Admin: 01/20/17 08:01 Dose: 120 mg Docusate Sodium (Colace) 100 mg PO BID PRN PRN Reason: Constipation Famotidine (Pepcid) 20 mg IVPUSH DAILY [facility] Last Admin: 01/20/17 08:01 Dose: 20 mg Hydralazine HCl (Apresoline) 10 mg IVPUSH Q4H PRN PRN Reason: Hypertension Hydromorphone HCl (Dilaudid) 0.25 mg IVPUSH Q2H PRN PRN Reason: Pain (severe 7-10) Last Admin: 01/18/17 19:12 Dose: 0.25 mg Piperacillin Sod/Tazobactam (Sod 4.5 gm/ Dextrose/Water) 100 mls @ 25 mls/hr IV Q8H MICHELLE Stop: 01/20/17 17:00 Last Admin: 01/20/17 11:44 Dose: 25 mls/hr Diltiazem HCl 125 mg/ Sodium (Chloride) 125 mls @ 2.5 mls/hr IV TITRATE MICHELLE; 2.5 MG/HR PRN Reason: Protocol Last Titration: 01/20/17 09:29 Dose: 0 mg/hr, 0 mls/hr Ampicillin Sodium/Sulbactam (Sodium 1.5 gm/ Sodium Chloride) 100 mls @ 200 mls/ hr IV Q12H [facility] Levothyroxine Sodium (Synthroid) 88 mcg PO ACBRK [facility] Last Admin: 01/20/17 05:37 Dose: 88 mcg Lisinopril (Prinivil) 20 mg PO DAILY [facility] Last Admin: 01/20/17 08:00 Dose: 20 mg Lorazepam (Ativan) 2 mg IVPUSH Q4H PRN PRN Reason: Seizures Lorazepam (Ativan) 0.25 mg IVPUSH Q6H PRN PRN Reason: Anxiety Last Admin: 01/20/17 00:26 Dose: 0.25 mg Magnesium Sulfate (Pharmacy To Dose - Magnesium Replacement) 1 dose .XX ASDIRECTED [facility] Metoprolol Succinate (Toprol Xl) 100 mg PO BID [facility] Last Admin: 01/20/17 08:01 Dose: 100 mg Metoprolol Tartrate (Lopressor) 5 mg IVPUSH Q4H PRN PRN Reason: Tachycardia Last Admin: 01/19/17 06:13 Dose: 5 mg Ondansetron HCl (Zofran) 4 mg IV Q6H PRN PRN Reason: Nausea/Vomiting Last Admin: 01/14/17 09:42 Dose: 4 mg Ondansetron HCl (Zofran Odt) 4 mg PO Q6H [facility] Last Admin: 01/20/17 11:41 Dose: Not Given Cyclosporine ( Restasis) Ophth Solution 0 each EYEBOTH BID [facility] Last Admin: 01/20/17 08:10 Dose: 1 each [Systane 0.3-0.4% Eye Drops] 1 D Own Med 0 each EYEBOTH BID [facility] Last Admin: 01/20/17 08:10 Dose: 1 each Polyethylene Glycol (Miralax) 17 gm PO DAILY PRN PRN Reason: Constipation Last Admin: 01/14/17 06:39 Dose: 17 gm Potassium Chloride (Pharmacy To Dose - Potassium Replacement) 1 dose .XX ASDIRECTED [facility] Quetiapine Fumarate (Seroquel) 25 mg PO DAILY [facility] Last Admin: 01/20/17 08:00 Dose: 25 mg Saccharomyces Boulardii (Florastor) 250 mg PO BID [facility] Last Admin: 01/20/17 07:59 Dose: 250 mg Senna/Docusate Sodium (Senna Plus) 1 tab PO BID PRN PRN Reason: Constipation Last Admin: 01/19/17 08:58 Dose: 1 tab Simvastatin (Zocor) 20 mg PO BEDTIME MICHELLE Last Admin: 01/19/17 21:50 Dose: 20 mg Temazepam (Restoril) 7.5 mg PO BEDTIME PRN PRN Reason: Sleep Last Admin: 01/13/17 21:40 Dose: 7.5 mg Discontinued Medications Bumetanide (Bumex) 0.5 mg IVPUSH ONETIME ONE Stop: 01/17/17 21:01 Last Admin: 01/17/17 22:13 Dose: 0.5 mg Bumetanide (Bumex) 1 mg IVPUSH ONETIME ONE Stop: 01/18/17 12:06 Last Admin: 01/18/17 13:20 Dose: 1 mg Bumetanide (Bumex) 0.5 mg IVPUSH ONETIME ONE Stop: 01/19/17 07:01 Bumetanide (Bumex) 1 mg IVPUSH ONETIME ONE Stop: 01/19/17 07:01 Last Admin: 01/19/17 06:15 Dose: 1 mg Carbamazepine (Tegretol) 300 mg PO TID [facility] Last Admin: 01/12/17 16:28 Dose: 300 mg Carbamazepine (Tegretol) 200 mg PO TID [facility] Last Admin: 01/12/17 20:09 Dose: 200 mg Carbamazepine (Tegretol Tab) 200 mg PO TID [facility] Last Admin: 01/14/17 08:18 Dose: 200 mg Carbamazepine (Tegretol) 150 mg PO TID [facility] Last Admin: 01/14/17 16:01 Dose: Not Given Carbamazepine (Tegretol) 150 mg PO BID [facility] Last Admin: 01/17/17 08:45 Dose: 150 mg Diazepam (Valium.) 5 mg PO ONETIME ONE Stop: 01/14/17 11:07 Last Admin: 01/14/17 11:27 Dose: 5 mg Diltiazem HCl (Cardizem Cd) 120 mg PO DAILY [facility] Last Admin: 01/18/17 08:19 Dose: 120 mg Diltiazem HCl (Cardizem) 60 mg PO ONETIME ONE Stop: 01/18/17 12:16 Last Admin: 01/18/17 13:20 Dose: 60 mg Diltiazem HCl (Cardizem) 30 mg PO ONETIME ONE Stop: 01/18/17 12:16 Last Admin: 01/18/17 13:20 Dose: 30 mg Diltiazem HCl (Cardizem Cd) 240 mg PO DAILY [facility] Diltiazem HCl (Diltiazem) 10 mg IVPUSH ONETIME ONE Stop: 01/19/17 11:36 Famotidine (Pepcid) 20 mg IVPUSH BID [facility] Stop: 01/16/17 23:59 Last Admin: 01/16/17 20:18 Dose: 20 mg Furosemide (Lasix) 20 mg PO DAILY PRN PRN Reason: Edema Furosemide (Lasix) 20 mg PO ONETIME ONE Stop: 01/17/17 07:31 Last Admin: 01/17/17 08:48 Dose: 20 mg Gabapentin (Neurontin) 100 mg PO DAILY [facility] Last Admin: 01/12/17 09:10 Dose: 100 mg Promethazine HCl 12.5 mg/ (Sodium Chloride) 50.5 mls @ 100 mls/hr IV Q6H PRN PRN Reason: Nausea/Vomiting Magnesium Sulfate 2 gm/ Premix 50 mls @ 25 mls/hr IV ONETIME ONE Stop: 01/13/17 12:59 Last Admin: 01/13/17 12:25 Dose: 25 mls/hr Dextrose/Sodium Chloride (Dextrose 5%-Normal Saline) 1,000 mls @ 75 mls/hr IV ASDIRECTED [facility] Last Admin: 01/17/17 04:53 Dose: 75 mls/hr Magnesium Sulfate 2 gm/ Premix 50 mls @ 25 mls/hr IV ONETIME ONE Stop: 01/15/17 10:59 Last Admin: 01/15/17 09:36 Dose: 25 mls/hr Azithromycin 500 mg/ Sodium (Chloride) 250 mls @ 250 mls/hr IV ONETIME ONE Stop: 01/15/17 20:25 Last Admin: 01/15/17 20:40 Dose: 250 mls/hr Ceftriaxone Sodium 1 gm/ (Sodium Chloride) 100 mls @ 200 mls/hr IV ONETIME ONE Stop: 01/15/17 21:00 Last Admin: 01/15/17 21:52 Dose: 200 mls/hr Ceftriaxone Sodium 1 gm/ (Sodium Chloride) 100 mls @ 200 mls/hr IV Q24H [facility] Last Admin: 01/16/17 19:36 Dose: Not Given Ceftriaxone Sodium 1 gm/ (Sodium Chloride) 100 mls @ 200 mls/hr IV Q24H [facility]HELLE Last Admin: 01/17/17 11:11 Dose: 200 mls/hr Azithromycin 500 mg/ Sodium (Chloride) 250 mls @ 250 mls/hr IV Q24H [facility] Last Admin: 01/17/17 10:41 Dose: Not Given Azithromycin 500 mg/ Sodium (Chloride) 250 mls @ 250 mls/hr IV ONETIME ONE Stop: 01/16/17 14:44 Last Admin: 01/16/17 14:20 Dose: 250 mls/hr Metronidazole 500 mg/ Premix 100 mls @ 100 mls/hr IV Q8H [facility]HEL[facility] Last Admin: 01/20/17 09:46 Dose: 100 mls/hr Ceftriaxone Sodium 1 gm/ (Dextrose/Water) 100 mls @ 200 mls/hr IV Q24H [facility]HELLE Ceftriaxone Sodium 1 gm/ (Dextrose/Water) 100 mls @ 200 mls/hr IV Q24H [facility]HEL[facility] Last Admin: 01/18/17 11:29 Dose: 200 mls/hr Piperacillin Sod/Tazobactam (Sod 4.5 gm/ Dextrose/Water) 100 mls @ 200 mls/hr IV ONETIME ONE Stop: 01/18/17 12:29 Last Admin: 01/18/17 13:21 Dose: 200 mls/hr Esmolol HCl (Brevibloc In Ns Premix) 2.5 gm in 250 mls @ 0 mls/hr IV TITRATE MICHELLE; 50 MCG/KG/MIN PRN Reason: Protocol Diltiazem HCl 125 mg/ Sodium (Chloride) 125 mls @ 5 mls/hr IV TITRATE MICHELLE; 5 MG /HR PRN Reason: Protocol Lorazepam (Ativan) 0.25 mg IV Q6H PRN PRN Reason: Anxiety Last Admin: 01/17/17 05:53 Dose: 0.25 mg Lorazepam (Ativan) 0.25 mg IV ONETIME ONE Stop: 01/18/17 09:16 Last Admin: 01/18/17 09:29 Dose: 0.25 mg Magnesium Oxide (Magnesium Oxide) 400 mg PO ONETIME ONE Stop: 01/13/17 08:01 Last Admin: 01/13/17 12:13 Dose: Not Given Magnesium Oxide (Magnesium Oxide) 800 mg PO ONETIME ONE Stop: 01/18/17 08:31 Last Admin: 01/18/17 08:24 Dose: 800 mg Metoprolol Succinate (Toprol Xl) 50 mg PO DAILY [facility] Last Admin: 01/18/17 08:22 Dose: 50 mg Modafinil (Provigil) 50 mg PO DAILY [facility] Last Admin: 01/15/17 09:26 Dose: 50 mg Modafinil (Provigil) 100 mg PO DAILY [facility] Last Admin: 01/17/17 08:47 Dose: 100 mg Phenytoin Sodium (Phenytoin) 100 mg PO BID [facility] Last Admin: 01/15/17 20:46 Dose: Not Given Quetiapine Fumarate (Seroquel) 25 mg PO DAILY [facility] Last Admin: 01/15/17 09:26 Dose: 25 mg Quetiapine Fumarate (Seroquel) 25 mg PO ONETIME ONE Stop: 01/18/17 11:05 Last Admin: 01/18/17 11:23 Dose: 25 mg Saccharomyces Boulardii (Florastor) 250 mg PO DAILY [facility] Last Admin: 01/17/17 08:31 Dose: 250 mg - Exam General: No Acute Distress, Sedated HEENT: Pupils Equal, Pupils Reactive, Mucous Membr. Moist/[place] Neck: Supple, No JVD, No Thyromegaly Lungs: Normal Respiratory Effort, Decreased Breath Sounds Cardiovascular: Irregular Rhythm GI/Abdominal Exam: Normal Bowel Sounds, Soft, Non-Tender, No Organomegaly, No Distention, No Abnormal Bruit (Female) Exam: Deferred Back Exam: Normal Inspection, Decreased Range of Motion Extremities: Normal Inspection, Normal Range of Motion, Non-Tender, No Pedal Edema, Normal Capillary Refill Peripheral Pulses: 2+: Dorsalis Pedis (L), Dorsalis Pedis (R) Skin: Warm, Dry, Intact Neurological: No New Focal Deficit Psy/Mental Status: Normal Affect, Normal Mood, Other (Sedated) - Problem List Review Problem List Initiated/Reviewed/Updated: Yes - My Orders Last 24 Hours: My Active Orders 01/19/17 12:44 Patient Status [ADT] Routine 01/19/17 12:54 EKG 12 Lead [EK] Stat 01/19/17 12:55 EKG Documentation Completion [RC] ASDIRECTED 01/20/17 03:00 Diltiazem 125 mg Sodium Chloride 0.9% [Normal Saline] 100 ml IV TITRATE 01/20/17 11:22 Consult to Speech Language Pathology [RENT CONTROL OFFICE MANAGER Evaluation and Treatment] [CONS] Routine 01/20/17 20:00 Ampicillin/Sulbactam Na [Unasyn] 1.5 gm Sodium Chloride 0.9% [Normal Saline] 100 ml IV Q12H - Plan Plan:: Assessment/Plan: Acute: AMS/Delirium with hallucinations but less agitation/anxiety - She is on high dose anticonvulsant medications TILER: Gabapentin, Phenytoin and Carbamazepine-- has been trimmed to only carbamazepine 200mg BID; stable and without any evidence of seizure - Hx of seizure disorder s/p hemorrhagic stroke in the past - She does not follow a Neurologist - RENT CONTROL OFFICE MANAGER cont to follow - Seroquel scheduled daily and Ativan PRN for restlessness - Has been off of 1:1 care since yesterday afternoon Aspiration Pneumonia, Possibly Improving - She has been altered with fluctuating level of alertness (delirium) - CXR shows right side pneumonia with small pleural effusion - Continue IV abx; consulted with pharmacy- now recommends unasyn; Continue florastor - Supplemental O2, Routine RT care and Bronchodilators - Sputum Cx/Sx--unable to obtain as patient does not understand/unable to follow instructions; as has been on abx tx for days now will cxl orders - WBC is now normal but CRP continues to go up - Cont RENT CONTROL OFFICE MANAGER evaluation ongoing daily Small Left Side Pleural Effusion, Stable - New abnormal finding on CXR - IS as directed- if able to cooperate - Aspiration precaution - Serial CXR as needed; will repeat CXR in AM - BNP elevated at 5,000--> 3707 today 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 Atrial Fibrillation, Uncontrolled - Carries a hx/o PAF in the past - EKG obtained: Atrial Fibrillation with HR of 120 - Repeat CXR with stable aspiration findings - BNP/Echo as above - Stroke PPx: CI due to brain bleed; repeat Head CT scan in AM - Changes to rate control regimen: Metoprolol 50 mg po BID and Cardizem SA 60 mg po QID 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 Schmidt, Neurosurgeon: recommend CT scan in 2 weeks then follow up in the office - Continue Neuro check Q4 - Continue to Hold Warfarin and ASA - Follow up MRI: essentially the same from previous study; no acute new abnormal findings - Follow up head CT done today with stable findings with areas of micro bleeding within prior noted areas of density/subdural bleeds. - Reviewed with Dr. Nesbitt, will not resume anticoagulant on discharge based on these findings. Generalized Weakness, Unchanged - Likely 2/2 above and poor intake - Continue PT/OT - Thyroid panel: normal - Vit D level: low, started supplement as below - We offered Vibra for stroke rehab and her family was receptive Vitamin D-Deficiency, New - Vit D level 21 (low) - Continue Vit D supplement Subtherapeutic INR, Unchanged---Holding warfarin due to continued areas of micro bleeding on head CT - Last INR 1.18 - Continue to hold off Warfarin/ASA due to brain bleed - Recommend switching to DOACs (defer to PCP after discharge) Right Shoulder Pain, New - S/p Fall - Tender with palpation and pain with active movement - XR with 3 views to r/o acute fracture is negative - PRN pain medication; PT/OT Poor Nutritional Status - She is able to swallow/eat and drink but not meeting her nutritional requirement - She is breaking muscle down at this point and not able to do PT/OT - Offered short term PEG tube placement to children and they agreed for short term use - Dr. Gallagher consulted Resolved: S/P Fall at [facility] - High Fall Risk - Polypharmacy - Fall precautions in place Chronic: Impaired Vision HTN- stable, 120-130's/80-90's HLD- will check lipid panel Atrial Fibrillation via Holter Monitor ---afib with RVR not responding to tx; will transfer patient to ICU for further treatment and closer monitoring. Mitral Valve Insufficiency GERD- GI prophylax OA/DJD Osteoporosis Hypothyroidism- stable Trigerminal Neuralgia, Continue Carbamezapin Inflammatory Spondylopathy Hx/o DVT/TIA Hx/o Brain Bleed Hx/o seizure s/p hemorrhagic stroke Anxiety Plan: She is essentially the same Titrate to come off cardizem drip Routine AM Labs CXR and Head CT scan in AM Continue Neuro check Q4, RENT CONTROL OFFICE MANAGER and PT/OT DVT PPx: SCDs GI prophylaxis: H2B IV BID Consult Dr. Gallagher for PEG Tube placement Aspiration/Fall/Seizure Precautions Additional orders as above CM/SW for d/c planning- Vibra with PEG Tube for short tem use until her nutritional requirement is met Code Status: DNR/DNI Prognosis remains guarded-poor. LOS > 96 hours due to slow response to treatment , planned PEG tube placement in AM and pending placement to [facility] for rehab likely next week.
[2017-01-20] MEDS: Simvastatin 20 MG Tab PO SCH (20:23)
[2017-01-20] MEDS: Ampicillin/Sulbactam Na 1.5 GM in Sodium Chloride 0.9% 100 ML IV SCH (20:30)
[2017-01-20] MEDS: Temazepam 7.5 MG Cap PO PRN (22:32)
[2017-01-20] MEDS: Metoprolol Tartrate 5 MG/5 ML SDV IVPUSH PRN (23:03)
[2017-01-21] MEDS: Levothyroxine 88 MCG Tab PO SCH (06:27)
[2017-01-21] MEDS: Ondansetron 4 MG Tab.DIS PO SCH ×2 (06:27→12:07)
[2017-01-21] MEDS: Diltiazem IR 60 MG Tab PO SCH ×4 (06:27→23:57)
--- NOTE | 2017-01-21 07:56 | CONS ---
CONSULTING PHYSICIAN: Den Gallagher MD DATE OF CONSULTATION: 01/20/2017 HISTORY OF PRESENT ILLNESS: An 86-year-old female who has history of that of having a bleed noted on head CT scan causing admission to the hospital. She has a past history of hypertension, atrial fibrillation history controlled on warfarin with mitral valve insufficiency. Has had past history of cerebral bleeds. On admission to the hospital, the patient's MRI scan showed bilateral subdural hematoma with thickness on the right up to about 1 cm and a small focal extraaxial hemorrhage which appeared subacute and minimal fatty acute cortical infarcts within the right parietal convexities were noted. The patient since being in the hospital has had some mobility problems and especially difficulties with eating in which they had used Thick-It and it has been difficult to get her medications down. She has had at times refused her medication. Since being in the hospital, repeat CT scans has shown the subdural hematomas to be stable. She has had trouble with aspiration and difficulty with chewing. Speech pathology has been completed and is showing the patient with severe oropharyngeal dysphagia. The patient's current medical problems are that of atrial fib with tachycardia being difficult to control with IV drip Cardizem because of drop in pressure and had been relying on oral medications with a difficulty to have her swallow. LABORATORY DATA: Her lab data shows a white count of 7.3, hemoglobin is 11.3. Her chemistries are intact with sodium 143, potassium 3.9, chloride 104, and CO2 of 30 with a creatinine of 1. Urinalysis so far is negative. PAST MEDICAL HISTORY: Arrhythmias, high cholesterol, hypertension, mitral valve insufficiency, atrial fib and flutter, arthritis in the back, degenerative joint disease, reports of TIA, trigeminal neuralgia, hypothyroidism, as such has been taken off her Coumadin. PAST SURGICAL HISTORY: Breast biopsies, knee replacements. SOCIAL HISTORY: Never a smoker and no alcohol use. FAMILY HISTORY: Noncontributory. REVIEW OF SYSTEMS: Unable to obtain from the patient. PHYSICAL EXAMINATION: VITAL SIGNS: Examination shows a temperature of 36, pulse 77, respirations 18, blood pressure 135/71. HEENT: Eyes: Extraocular muscle motion difficult to obtain. Sclerae white. Oral cavity healthy. The patient has some dysarthria and difficult to understand. She has it difficult in mentally forming her words and thoughts. Making review of systems impossible. HEART: Tones irregular irregular rate. ABDOMEN: Soft. No tenderness, guarding, or rebound. EXTREMITIES: Can move her left arm, but not right arm and her legs moves with some difficulty. NEUROLOGIC: There is some confusion and no sensory deficit appreciated. SKIN: Warm and dry. ASSESSMENT: Subdural hematoma with bleed with dysarthria and difficulty swallowing with aspiration problems. PLAN: Place a PEG tube. We will first discuss with family before scheduling. MMODAL /[id number]
[2017-01-21] MEDS: Ampicillin/Sulbactam Na 1.5 GM in Sodium Chloride 0.9% 100 ML IV SCH (08:59)
[2017-01-21] MEDS: CYCLOSPORINE EYEBOTH SCH ×2 (09:00→21:57)
[2017-01-21] MEDS ORDERED: Potassium Chloride 10 MEQ in Premix Bag 1 BAG IV SCH (09:00)
[2017-01-21] MEDS: Dextrose 5%-0.9% NaCl with KCl 1,000 ML IV SCH (09:27)
[2017-01-21] MEDS: Potassium Chloride 10 MEQ in Premix Bag 1 BAG IV SCH ×2 (09:27→11:40)
--- NOTE | 2017-01-21 10:07 | CR ---
Chest: Portable view of the chest was obtained. Comparison: Prior chest x-ray of 01/19/17. Increased density within the right upper and right lower lung is seen. Findings may be slightly less dense but overall distribution is stable from prior chest x-ray. Mild atelectasis remains behind the left heart. Lung markings remain slightly increased within the left side which also is stable. Heart is mildly enlarged. Scoliosis noted within the spine with degenerative change. Chronic rotator cuff tears are seen within the shoulders. Osteopenia is present. Impression: 1. Slight decreased density but overall distribution of right-sided lung densities remain. Other findings as described above are also stable. Diagnostic code #3
--- NOTE | 2017-01-21 11:20 | PCM.PREANE ---
Preanesthetic Assessment - Anesthesia/Transfusion/Family Hx Anesthesia History: Prior Anesthesia Without Reaction Family History of Anesthesia Reaction: No Transfusion History: No Prior Transfusion(s) - Review of Systems General: Weakness, Fatigue, Appetite (unable to swallow appropriately- aspiration) Pulmonary: No Symptoms Cardiovascular: No Symptoms Gastrointestinal: Decreased Appetite, Difficulty Swallowing Neurological: Confusion, Seizure, Trouble Speaking, Weakness, Change in Speech, Gait Disturbance, Other (subdural bleed) Other: Reports: Easy Bleeding, Easy Bruising, Thyroid Problems - Physical Assessment NPO Status Date: 01/20/17 NPO Status Time: 18:00 Pulse: 116 O2 Sat by Pulse Oximetry: 95 Respiratory Rate: 22 Blood Pressure: 126/74 Temperature: 98.1 F Vital Signs: Last Vital Signs Temp 98.2 F 01/21/17 08:00 Pulse 113 H 01/21/17 08:00 Resp 22 H 01/21/17 08:00 BP 125/83 01/21/17 08:00 Pulse Ox 95 01/21/17 08:00 Height: 5 ft 3 in Weight: 62.324 kg ASA Class: 3E Mental Status: Other (confused) Airway Class: Mallampati = 2 Dentition: Reports: Missing Tooth/Teeth Thyro-Mental Finger Breadths: 3 Mouth Opening Finger Breadths: 3 ROM/Head Extension: Full Lungs: Clear to Auscultation, Normal Respiratory Effort Cardiovascular: Irregular Rhythm - Lab Values: Laboratory Last Values WBC 7.55 K/mm3 (3.98-10.04) 01/21/17 07:37 RBC 3.96 M/mm3 (3.98-5.22) L 01/21/17 07:37 Hgb 11.8 gm/L (11.2-15.7) 01/21/17 07:37 Hct 36.6 % (34.1-44.9) 01/21/17 07:37 MCV 92.4 fl (79.4-94.8) 01/21/17 07:37 MCH 29.8 pg (25.6-32.2) 01/21/17 07:37 MCHC 32.2 g/dl (32.2-35.5) 01/21/17 07:37 RDW Std Deviation 47.9 fL (36.4-46.3) H 01/21/17 07:37 Plt Count 226 K/mm3 (182-369) 01/21/17 07:37 MPV 9.8 fl (9.4-12.3) 01/21/17 07:37 Neut % (Auto) 54.5 % (34.0-71.1) 01/21/17 07:37 Lymph % (Auto) 15.4 % (19.3-51.7) L 01/21/17 07:37 [place] % (Auto) 20.1 % (4.7-12.5) H 01/21/17 07:37 Eos % (Auto) 9.1 (0.7-5.8) H 01/21/17 07:37 Baso % (Auto) 0.5 % (0.1-1.2) 01/21/17 07:37 Neut # (Auto) 4.11 K/mm3 (1.56-6.13) 01/21/17 07:37 Lymph # (Auto) 1.16 K/mm3 (1.18-3.74) L 01/21/17 07:37 [place] # (Auto) 1.52 K/mm3 (0.24-0.36) H 01/21/17 07:37 Eos # (Auto) 0.69 K/mm3 (0.04-0.36) H 01/21/17 07:37 Baso # (Auto) 0.04 K/mm3 (0.01-0.08) 01/21/17 07:37 Neutrophils % (Manual) 50 % (40-60) 01/11/17 21:50 Band Neutrophils % 0 % (0-10) 01/11/17 21:50 Lymphocytes % (Manual) 25 % (20-40) 01/11/17 21:50 Atypical Lymphs % 0 % 01/11/17 21:50 Monocytes % (Manual) 20 % (2-10) H 01/11/17 21:50 Eosinophils % (Manual) 5 % (0.7-5.8) 01/11/17 21:50 Basophils % (Manual) 0 (0.1-1.2) L 01/11/17 21:50 Manual Slide Review Abnormal smear 01/21/17 07:37 Platelet Estimate Adequate 01/11/17 21:50 Plt Morphology Comment Normal 01/11/17 21:50 RBC Morph Comment Normal 01/11/17 21:50 PT 13.0 SECONDS (8.0-13.0) 01/11/17 21:50 INR 1.18 01/11/17 21:50 APTT 31 SECONDS (22-36) 01/11/17 21:50 Sodium 144 mEq/L (136-145) 01/21/17 07:37 Potassium 3.3 mEq/L (3.5-5.1) L 01/21/17 07:37 Chloride 106 mEq/L (98-107) 01/21/17 07:37 Carbon Dioxide 31 mEq/L (21-32) 01/21/17 07:37 Anion Gap 10.3 (5-15) 01/21/17 07:37 BUN 20 mg/dL (7-18) H 01/21/17 07:37 Creatinine 1.0 mg/dL (0.55-1.02) 01/21/17 07:37 Est Cr Clr Drug Dosing 33.41 mL/min 01/21/17 07:37 Estimated GFR (MDRD) 53 mL/min (>60) 01/21/17 07:37 BUN/Creatinine Ratio 20.0 (14-18) H 01/21/17 07:37 Glucose 88 mg/dL (83-115) 01/21/17 07:37 Uric Acid 3.3 mg/dL (2.6-6.0) 01/16/17 05:30 Calcium 9.3 mg/dL (8.5-10.1) 01/21/17 07:37 Magnesium 1.8 mg/dl (1.8-2.4) 01/21/17 07:37 Total Bilirubin 0.3 mg/dL (0.2-1.0) 01/11/17 21:50 AST 39 U/L (15-37) H 01/11/17 21:50 ALT 45 U/L (14-59) 01/11/17 21:50 Alkaline Phosphatase 120 U/L (46-116) H 01/11/17 21:50 CK-MB (CK-2) 0.8 ng/ml (0-3.6) 01/12/17 05:45 Troponin I < 0.017 ng/mL (0.00-0.056) 01/12/17 05:45 C-Reactive Protein 28.3 mg/dL (<1.0) H* 01/19/17 05:45 NT-Pro-B Natriuret Pep 3705 pg/mL (0-450) H 01/19/17 05:45 Total Protein 6.3 g/dl (6.4-8.2) L 01/11/17 21:50 Albumin 3.2 g/dl (3.4-5.0) L 01/11/17 21:50 Globulin 3.1 gm/dL 01/11/17 21:50 Albumin/Globulin Ratio 1.0 (1-2) 01/11/17 21:50 Vitamin D 25-Hydroxy 21 ng/mL (30-100) L 01/13/17 05:30 TSH 3rd Generation 2.956 uIU/mL (0.358-3.74) 01/11/17 21:50 Urine Color Yellow (Yellow) 01/15/17 21:50 Urine Appearance Clear (Clear) 01/15/17 21:50 Urine pH 6.0 (5.0-8.0) 01/15/17 21:50 Ur Specific [place] 1.025 (1.005-1.030) 01/15/17 21:50 Urine Protein 1+ (Negative) H 01/15/17 21:50 Urine Glucose (UA) Negative (Negative) 01/15/17 21:50 Urine Ketones Negative (Negative) 01/15/17 21:50 Urine Occult Blood 1+ (Negative) H 01/15/17 21:50 Urine Nitrite Positive (Negative) H 01/15/17 21:50 Urine Bilirubin Negative (Negative) 01/15/17 21:50 Urine Urobilinogen 1.0 (0.2-1.0) 01/15/17 21:50 Ur Leukocyte Esterase Negative (Negative) 01/15/17 21:50 Urine RBC 0-5 /hpf (0-5) 01/15/17 21:50 Urine WBC 0-5 /hpf (0-5) 01/15/17 21:50 Ur Epithelial Cells Not seen /hpf (0-5) 01/15/17 21:50 Urine Bacteria Many /hpf (FEW) H 01/15/17 21:50 Urine Mucus Not seen /hpf (FEW) 01/15/17 21:50 Phenytoin 16.3 ug/mL (10.0-20.0) 01/11/17 21:50 Carbamazepine 10.8 ug/mL (4.0-12.0) 01/11/17 21:50 MRSA (PCR) Negative 01/12/17 01:00 - Allergies Allergies/Adverse Reactions: Allergies Allergy/AdvReac Type Severity Reaction Status Date / Time Cephalosporins AdvReac Nausea Verified 01/12/17 07:09 - Blood Blood Available: No - Anesthesia Plan Beta Gavin: Metoprolol Med Last Dose Date: 01/21/17 (1030) Med Last Dose Time: 10:30 - Acknowledgements Anesthesia Type Planned: MAC Pt an Appropriate Candidate for the Planned Anesthesia: Yes Alternatives and Risks of Anesthesia Discussed w Pt/Guardian: Yes Pt/Guardian Understands and Agrees with Anesthesia Plan: Yes PreAnesthesia Questionnaire HEENT History: Reports: Impaired Vision Other HEENT History: partial tooth Cardiovascular History: Reports: Arrhythmia, Blood Clots/VTE/DVT, High Cholesterol, Hypertension, Other (See Below) Other Cardiovascular History: mitral valve insufficiency, atrial flutter Respiratory History: Reports: None Gastrointestinal History: Reports: GERD Genitourinary History: Reports: Other (See Below) Other Genitourinary History: dysuria [employer] History: Reports: Musculoskeletal History: Reports: Arthritis, Neck Pain, Chronic, Osteoarthritis , Osteoporosis, Other (See Below) Other Musculoskeletal History: degenerative joint disease, inflammatory spondylopathy Neurological History: Reports: TIA, Other (See Below) Other Neuro History: hx of "brain bleed", trigeminal neuralgia, states "fake seizures", written dx of epilepsy Psychiatric History: Reports: Anxiety Endocrine/Metabolic History: Reports: Hypothyroidism Hematologic History: Reports: Other (See Below) Other Hematologic History: is on coumadin - Infectious Disease History Infectious Disease History: Reports: Chicken Pox - Past Surgical History Head Surgeries/Procedures: Reports: Other (See Below) (brain bleed) HEENT Surgical History: Reports: Tonsillectomy Other HEENT Surgeries/Procedures: cornea surgery Female Surgical History: Reports: Breast Biopsy, Hysterectomy Musculoskeletal Surgical History: Reports: Knee Replacement, Other (See Below) ( leg for clots) - SUBSTANCE USE Smoking Status *Q: Never Smoker Second Hand Smoke Exposure: No Days Per Week of Alcohol Use: 0 Recreational Drug Use History: No - HOME MEDS Home Medications: Home Meds Acetaminophen [Tylenol Arthritis Pain] 2 tab PO Q8H PRN 04/25/14 [History] Furosemide [Lasix] 20 mg PO DAILY PRN 04/25/14 [History] Levothyroxine [Synthroid] 88 mcg PO DAILY 04/25/14 [History] Lisinopril [Zestril] 20 mg PO DAILY 04/25/14 [History] Simvastatin [Zocor] 20 mg PO BEDTIME 04/25/14 [History] cycloSPORINE [Restasis] 1 drop EYEBOTH BID 04/25/14 [History] Diltiazem [Cardizem CD] 120 mg PO DAILY 01/11/17 [History] Metoprolol Succinate [Toprol XL] 50 mg PO DAILY 01/11/17 [History] Propylene Glycol/Peg 400 [Systane 0.3-0.4% Eye Drops] 1 drop EYEBOTH BID [History] Amoxicillin 500 mg PO TID #10 capsule 01/17/17 [Rx] Bifidobacter. Bifidum/B.Longum [Florajen Bifidoblend] 460 mg PO DAILY #30 capsule 01/17/17 [Rx] Bisacodyl [Dulcolax] 5 mg PO DAILY PRN tablet 01/17/17 [Rx] Bisacodyl [Dulcolax] 10 mg RECTAL DAILY PRN supp 01/17/17 [Rx] Cholecalciferol (Vitamin D3) [Vitamin D3] 2,000 units PO DAILY #30 tablet [Rx] Famotidine [Pepcid] 20 mg PO BID #60 tablet 01/17/17 [Rx] Metronidazole [IJD: metroNIDAZOLE] 500 mg PO .EVERY 8 HOURS #30 tab 01/17/17 [Rx ] Polyethylene Glycol 3350 [MiraLAX] 17 gm PO DAILY PRN packet 01/17/17 [Rx] carBAMazepine [Carbamazepine ER] 200 mg PO BID #60 cpmp.12hr 01/17/17 [Rx] - CURRENT (IN HOUSE) MEDS Current Meds: Current Medications Acetaminophen (Tylenol) 650 mg PO Q4H PRN PRN Reason: Pain (Mild 1-3)/fever Last Admin: 01/16/17 14:16 Dose: 650 mg Acetaminophen (Tylenol) 650 mg RECTAL Q4H PRN PRN Reason: Pain/Fever Hydrocodone Bitart/Acetaminophen ([place] 325-5 Mg) 1 tab PO Q4H PRN PRN Reason: Pain (moderate 4-6) Albuterol/Ipratropium (Duoneb 3.0-0.5 Mg/3 Ml) 3 ml NEB Q4H PRN PRN Reason: Shortness Of Breath/wheezing Bisacodyl (Dulcolax) 5 mg PO DAILY PRN PRN Reason: Constipation Last Admin: 01/19/17 04:58 Dose: 5 mg Bisacodyl (Dulcolax) 10 mg RECTAL DAILY PRN PRN Reason: Constipation Last Admin: 01/15/17 06:31 Dose: 10 mg Carbamazepine (Tegretol Tab) 200 mg PO BID [facility] Last Admin: 01/20/17 20:23 Dose: 200 mg Cholecalciferol (Vitamin D3) 2,000 units PO DAILY [facility] Last Admin: 01/20/17 08:00 Dose: 2,000 units Diltiazem HCl (Cardizem) 60 mg PO Q6HR [facility] Last Admin: 01/21/17 06:27 Dose: Not Given Docusate Sodium (Colace) 100 mg PO BID PRN PRN Reason: Constipation Famotidine (Pepcid) 20 mg IVPUSH DAILY [facility] Last Admin: 01/20/17 08:01 Dose: 20 mg Hydralazine HCl (Apresoline) 10 mg IVPUSH Q4H PRN PRN Reason: Hypertension Hydromorphone HCl (Dilaudid) 0.25 mg IVPUSH Q2H PRN PRN Reason: Pain (severe 7-10) Last Admin: 01/18/17 19:12 Dose: 0.25 mg Diltiazem HCl 125 mg/ Sodium (Chloride) 125 mls @ 2.5 mls/hr IV TITRATE MICHELLE; 2.5 MG/HR PRN Reason: Protocol Last Titration: 01/20/17 09:29 Dose: 0 mg/hr, 0 mls/hr Potassium Chloride/Dextrose/Sod Cl (D5 Ns With 20 Meq Kcl) 1,000 mls @ 75 mls/ hr IV ASDIRECTED MICHELLE Last Admin: 01/21/17 09:27 Dose: 75 mls/hr Potassium Chloride 10 meq/ (Premix) 100 mls @ 100 mls/hr IV Q1H MICHELLE Stop: 01/21/17 11:29 Last Admin: 01/21/17 09:27 Dose: 100 mls/hr Levothyroxine Sodium (Synthroid) 88 mcg PO ACBRK [facility] Last Admin: 01/21/17 06:27 Dose: Not Given Lisinopril (Prinivil) 20 mg PO DAILY [facility] Last Admin: 01/20/17 08:00 Dose: 20 mg Lorazepam (Ativan) 2 mg IVPUSH Q4H PRN PRN Reason: Seizures Lorazepam (Ativan) 0.25 mg IVPUSH Q6H PRN PRN Reason: Anxiety Last Admin: 01/20/17 00:26 Dose: 0.25 mg Metoprolol Succinate (Toprol Xl) 50 mg PO BID [facility] Metoprolol Tartrate (Lopressor) 5 mg IVPUSH Q4H PRN PRN Reason: Tachycardia Last Admin: 01/20/17 23:03 Dose: 5 mg Ondansetron HCl (Zofran) 4 mg IV Q6H PRN PRN Reason: Nausea/Vomiting Last Admin: 01/14/17 09:42 Dose: 4 mg Cyclosporine ( Restasis) Ophth Solution 0 each EYEBOTH BID [facility] Last Admin: 01/20/17 20:30 Dose: 1 each [Systane 0.3-0.4% Eye Drops] 1 D Own Med 0 each EYEBOTH BID [facility] Last Admin: 01/20/17 20:33 Dose: Not Given Polyethylene Glycol (Miralax) 17 gm PO DAILY PRN PRN Reason: Constipation Last Admin: 01/14/17 06:39 Dose: 17 gm Quetiapine Fumarate (Seroquel) 25 mg PO DAILY [facility] Last Admin: 01/20/17 08:00 Dose: 25 mg Saccharomyces Boulardii (Florastor) 250 mg PO BID [facility] Last Admin: 01/20/17 20:29 Dose: 250 mg Senna/Docusate Sodium (Senna Plus) 1 tab PO BID PRN PRN Reason: Constipation Last Admin: 01/19/17 08:58 Dose: 1 tab Simvastatin (Zocor) 20 mg PO BEDTIME [facility] Last Admin: 01/20/17 20:23 Dose: 20 mg Temazepam (Restoril) 7.5 mg PO BEDTIME PRN PRN Reason: Sleep Last Admin: 01/20/17 22:32 Dose: 7.5 mg Discontinued Medications Bumetanide (Bumex) 0.5 mg IVPUSH ONETIME ONE Stop: 01/17/17 21:01 Last Admin: 01/17/17 22:13 Dose: 0.5 mg Bumetanide (Bumex) 1 mg IVPUSH ONETIME ONE Stop: 01/18/17 12:06 Last Admin: 01/18/17 13:20 Dose: 1 mg Bumetanide (Bumex) 0.5 mg IVPUSH ONETIME ONE Stop: 01/19/17 07:01 Bumetanide (Bumex) 1 mg IVPUSH ONETIME ONE Stop: 01/19/17 07:01 Last Admin: 01/19/17 06:15 Dose: 1 mg Carbamazepine (Tegretol) 300 mg PO TID [facility] Last Admin: 01/12/17 16:28 Dose: 300 mg Carbamazepine (Tegretol) 200 mg PO TID [facility] Last Admin: 01/12/17 20:09 Dose: 200 mg Carbamazepine (Tegretol Tab) 200 mg PO TID [facility] Last Admin: 01/14/17 08:18 Dose: 200 mg Carbamazepine (Tegretol) 150 mg PO TID [facility] Last Admin: 01/14/17 16:01 Dose: Not Given Carbamazepine (Tegretol) 150 mg PO BID [facility] Last Admin: 01/17/17 08:45 Dose: 150 mg Diazepam (Valium.) 5 mg PO ONETIME ONE Stop: 01/14/17 11:07 Last Admin: 01/14/17 11:27 Dose: 5 mg Diltiazem HCl (Cardizem Cd) 120 mg PO DAILY [facility] Last Admin: 01/18/17 08:19 Dose: 120 mg Diltiazem HCl (Cardizem) 60 mg PO ONETIME ONE Stop: 01/18/17 12:16 Last Admin: 01/18/17 13:20 Dose: 60 mg Diltiazem HCl (Cardizem) 30 mg PO ONETIME ONE Stop: 01/18/17 12:16 Last Admin: 01/18/17 13:20 Dose: 30 mg Diltiazem HCl (Cardizem Cd) 240 mg PO DAILY [facility] Diltiazem HCl (Cardizem Cd) 120 mg PO DAILY [facility] Last Admin: 01/20/17 08:01 Dose: 120 mg Diltiazem HCl (Diltiazem) 10 mg IVPUSH ONETIME ONE Stop: 01/19/17 11:36 Famotidine (Pepcid) 20 mg IVPUSH BID [facility] Stop: 01/16/17 23:59 Last Admin: 01/16/17 20:18 Dose: 20 mg Furosemide (Lasix) 20 mg PO DAILY PRN PRN Reason: Edema Furosemide (Lasix) 20 mg PO ONETIME ONE Stop: 01/17/17 07:31 Last Admin: 01/17/17 08:48 Dose: 20 mg Gabapentin (Neurontin) 100 mg PO DAILY [facility] Last Admin: 01/12/17 09:10 Dose: 100 mg Promethazine HCl 12.5 mg/ (Sodium Chloride) 50.5 mls @ 100 mls/hr IV Q6H PRN PRN Reason: Nausea/Vomiting Magnesium Sulfate 2 gm/ Premix 50 mls @ 25 mls/hr IV ONETIME ONE Stop: 01/13/17 12:59 Last Admin: 01/13/17 12:25 Dose: 25 mls/hr Dextrose/Sodium Chloride (Dextrose 5%-Normal Saline) 1,000 mls @ 75 mls/hr IV ASDIRECTED [facility] Last Admin: 01/17/17 04:53 Dose: 75 mls/hr Magnesium Sulfate 2 gm/ Premix 50 mls @ 25 mls/hr IV ONETIME ONE Stop: 01/15/17 10:59 Last Admin: 01/15/17 09:36 Dose: 25 mls/hr Azithromycin 500 mg/ Sodium (Chloride) 250 mls @ 250 mls/hr IV ONETIME ONE Stop: 01/15/17 20:25 Last Admin: 01/15/17 20:40 Dose: 250 mls/hr Ceftriaxone Sodium 1 gm/ (Sodium Chloride) 100 mls @ 200 mls/hr IV ONETIME ONE Stop: 01/15/17 21:00 Last Admin: 01/15/17 21:52 Dose: 200 mls/hr Ceftriaxone Sodium 1 gm/ (Sodium Chloride) 100 mls @ 200 mls/hr IV Q24H [facility] Last Admin: 01/16/17 19:36 Dose: Not Given Ceftriaxone Sodium 1 gm/ (Sodium Chloride) 100 mls @ 200 mls/hr IV Q24H [facility] Last Admin: 01/17/17 11:11 Dose: 200 mls/hr Azithromycin 500 mg/ Sodium (Chloride) 250 mls @ 250 mls/hr IV Q24H [facility] Last Admin: 01/17/17 10:41 Dose: Not Given Azithromycin 500 mg/ Sodium (Chloride) 250 mls @ 250 mls/hr IV ONETIME ONE Stop: 01/16/17 14:44 Last Admin: 01/16/17 14:20 Dose: 250 mls/hr Metronidazole 500 mg/ Premix 100 mls @ 100 mls/hr IV Q8H [facility] Last Admin: 01/20/17 09:46 Dose: 100 mls/hr Ceftriaxone Sodium 1 gm/ (Dextrose/Water) 100 mls @ 200 mls/hr IV Q24H MICHELLE Ceftriaxone Sodium 1 gm/ (Dextrose/Water) 100 mls @ 200 mls/hr IV Q24H [facility] Last Admin: 01/18/17 11:29 Dose: 200 mls/hr Piperacillin Sod/Tazobactam (Sod 4.5 gm/ Dextrose/Water) 100 mls @ 200 mls/hr IV ONETIME ONE Stop: 01/18/17 12:29 Last Admin: 01/18/17 13:21 Dose: 200 mls/hr Piperacillin Sod/Tazobactam (Sod 4.5 gm/ Dextrose/Water) 100 mls @ 25 mls/hr IV Q8H [facility] Stop: 01/20/17 17:00 Last Admin: 01/20/17 11:44 Dose: 25 mls/hr Esmolol HCl (Brevibloc In Ns Premix) 2.5 gm in 250 mls @ 0 mls/hr IV TITRATE MICHELLE; 50 MCG/KG/MIN PRN Reason: Protocol Diltiazem HCl 125 mg/ Sodium (Chloride) 125 mls @ 5 mls/hr IV TITRATE MICHELLE; 5 MG /HR PRN Reason: Protocol Ampicillin Sodium/Sulbactam (Sodium 1.5 gm/ Sodium Chloride) 100 mls @ 200 mls/ hr IV Q12H [facility] Last Admin: 01/21/17 08:59 Dose: 200 mls/hr Potassium Chloride 10 meq/ (Premix) 100 mls @ 100 mls/hr IV Q1H [facility] Stop: 01/21/17 12:59 Lorazepam (Ativan) 0.25 mg IV Q6H PRN PRN Reason: Anxiety Last Admin: 01/17/17 05:53 Dose: 0.25 mg Lorazepam (Ativan) 0.25 mg IV ONETIME ONE Stop: 01/18/17 09:16 Last Admin: 01/18/17 09:29 Dose: 0.25 mg Magnesium Oxide (Magnesium Oxide) 400 mg PO ONETIME ONE Stop: 01/13/17 08:01 Last Admin: 01/13/17 12:13 Dose: Not Given Magnesium Oxide (Magnesium Oxide) 800 mg PO ONETIME ONE Stop: 01/18/17 08:31 Last Admin: 01/18/17 08:24 Dose: 800 mg Magnesium Sulfate (Pharmacy To Dose - Magnesium Replacement) 1 dose .XX ASDIRECTED [facility] Metoprolol Succinate (Toprol Xl) 50 mg PO DAILY [facility] Last Admin: 01/18/17 08:22 Dose: 50 mg Metoprolol Succinate (Toprol Xl) 100 mg PO BID [facility] Last Admin: 01/20/17 20:23 Dose: 100 mg Modafinil (Provigil) 50 mg PO DAILY [facility] Last Admin: 01/15/17 09:26 Dose: 50 mg Modafinil (Provigil) 100 mg PO DAILY [facility] Last Admin: 01/17/17 08:47 Dose: 100 mg Ondansetron HCl (Zofran Odt) 4 mg PO Q6H [facility] Last Admin: 01/21/17 06:27 Dose: Not Given Phenytoin Sodium (Phenytoin) 100 mg PO BID [facility] Last Admin: 01/15/17 20:46 Dose: Not Given Potassium Chloride (Pharmacy To Dose - Potassium Replacement) 1 dose .XX ASDIRECTED [facility] Quetiapine Fumarate (Seroquel) 25 mg PO DAILY [facility] Last Admin: 01/15/17 09:26 Dose: 25 mg Quetiapine Fumarate (Seroquel) 25 mg PO ONETIME ONE Stop: 01/18/17 11:05 Last Admin: 01/18/17 11:23 Dose: 25 mg Saccharomyces Boulardii (Florastor) 250 mg PO DAILY [facility] Last Admin: 01/17/17 08:31 Dose: 250 mg
[2017-01-21] MEDS: Metoprolol Succinate 50 MG Tab.ER PO SCH ×2 (11:40→20:43)
[2017-01-21] MEDS: Famotidine 20 MG/2 ML SDV IVPUSH SCH (12:04)
[2017-01-21] MEDS: Saccharomyces Boulardii (Probiotic) 250 MG Cap PO SCH ×2 (12:04→20:43)
[2017-01-21] MEDS: Lisinopril 20 MG Tab PO SCH (12:04)
[2017-01-21] MEDS: carBAMazepine 200 MG Tab PO SCH ×2 (12:05→20:43)
[2017-01-21] MEDS: Cholecalciferol (Vitamin D3) 1,000 Unit Tab PO SCH (12:05)
[2017-01-21] MEDS: QUEtiapine 25 MG Tab PO SCH (12:05)
[2017-01-21] MEDS ORDERED: Propofol 200 MG/20 ML SDV ONE (12:18)
--- NOTE | 2017-01-21 13:37 | PCM.PN ---
- General Info Date of Service: 01/21/17 Functional Status: Reports: Pain Controlled, Urinating - Review of Systems General: Reports: Weakness HEENT: Reports: No Symptoms Pulmonary: Reports: No Symptoms Cardiovascular: Reports: No Symptoms Gastrointestinal: Reports: No Symptoms Genitourinary: Reports: No Symptoms Musculoskeletal: Reports: No Symptoms Skin: Reports: No Symptoms Neurological: Reports: Confusion, Gait Disturbance Psychiatric: Reports: No Symptoms - Patient Data Vitals - Most Recent: Last Vital Signs Temp 36.7 C 01/21/17 12:00 Pulse 110 H 01/21/17 12:00 Resp 21 H 01/21/17 12:00 BP 125/89 01/21/17 12:04 Pulse Ox 95 01/21/17 12:00 Weight - Most Recent: 62.324 kg I&O - Last 24 Hours: Intake & Output 01/20/17 01/21/17 01/21/17 22:59 06:59 14:59 Intake Total 432 200 Output Total 500 Balance 432 200 -500 Lab Results Last 24 Hours: Laboratory Results - last 24 hr 01/21/17 01/21/17 01/21/17 Range/Units 07:37 07:37 12:25 WBC 7.55 (3.98-10.04) K/mm3 RBC 3.96 L (3.98-5.22) M/mm3 Hgb 11.8 (11.2-15.7) gm/L Hct 36.6 (34.1-44.9) % MCV 92.4 (79.4-94.8) fl MCH 29.8 (25.6-32.2) pg MCHC 32.2 (32.2-35.5) g/dl RDW Std Deviation 47.9 H (36.4-46.3) fL Plt Count 226 (182-369) K/mm3 MPV 9.8 (9.4-12.3) fl Neut % (Auto) 54.5 (34.0-71.1) % Lymph % (Auto) 15.4 L (19.3-51.7) % [place] % (Auto) 20.1 H (4.7-12.5) % Eos % (Auto) 9.1 H (0.7-5.8) Baso % (Auto) 0.5 (0.1-1.2) % Neut # (Auto) 4.11 (1.56-6.13) K/mm3 Lymph # (Auto) 1.16 L (1.18-3.74) K/mm3 [place] # (Auto) 1.52 H (0.24-0.36) K/mm3 Eos # (Auto) 0.69 H (0.04-0.36) K/mm3 Baso # (Auto) 0.04 (0.01-0.08) K/mm3 Manual Slide Review Abnormal smear Sodium 144 (136-145) mEq/L Potassium 3.3 L (3.5-5.1) mEq/L Chloride 106 (98-107) mEq/L Carbon Dioxide 31 (21-32) mEq/L Anion Gap 10.3 (5-15) BUN 20 H (7-18) mg/dL Creatinine 1.0 (0.55-1.02) mg/dL Est Cr Clr Drug Dosing 33.41 mL/min Estimated GFR (MDRD) 53 (>60) mL/min BUN/Creatinine Ratio 20.0 H (14-18) Glucose 88 (83-115) mg/dL POC Glucose 116 H (83-110) mg/dL Calcium 9.3 (8.5-10.1) mg/dL Magnesium 1.8 (1.8-2.4) mg/dl Boy Results Last 24 Hours: Microbiology 01/15/17 20:20 Aerobic Blood Culture - Preliminary Blood NO GROWTH AFTER 5 DAYS Anaerobic Blood Culture - Preliminary NO GROWTH AFTER 5 DAYS 01/15/17 20:30 Aerobic Blood Culture - Preliminary Blood NO GROWTH AFTER 5 DAYS Anaerobic Blood Culture - Preliminary NO GROWTH AFTER 5 DAYS Med Orders - Current: Current Medications Acetaminophen (Tylenol) 650 mg PO Q4H PRN PRN Reason: Pain (Mild 1-3)/fever Last Admin: 01/16/17 14:16 Dose: 650 mg Acetaminophen (Tylenol) 650 mg RECTAL Q4H PRN PRN Reason: Pain/Fever Hydrocodone Bitart/Acetaminophen ([place] 325-5 Mg) 1 tab PO Q4H PRN PRN Reason: Pain (moderate 4-6) Bisacodyl (Dulcolax) 5 mg PO DAILY PRN PRN Reason: Constipation Last Admin: 01/19/17 04:58 Dose: 5 mg Bisacodyl (Dulcolax) 10 mg RECTAL DAILY PRN PRN Reason: Constipation Last Admin: 01/15/17 06:31 Dose: 10 mg Carbamazepine (Tegretol Tab) 200 mg PO BID [facility] Last Admin: 01/21/17 12:05 Dose: Not Given Cholecalciferol (Vitamin D3) 2,000 units PO DAILY [facility] Last Admin: 01/21/17 12:05 Dose: Not Given Diltiazem HCl (Cardizem) 60 mg PO Q6HR [facility] Last Admin: 01/21/17 13:26 Dose: Not Given Docusate Sodium (Colace) 100 mg PO BID PRN PRN Reason: Constipation Famotidine (Pepcid) 20 mg IVPUSH DAILY [facility] Last Admin: 01/21/17 12:04 Dose: Not Given Hydralazine HCl (Apresoline) 10 mg IVPUSH Q4H PRN PRN Reason: Hypertension Hydromorphone HCl (Dilaudid) 0.25 mg IVPUSH Q2H PRN PRN Reason: Pain (severe 7-10) Last Admin: 01/18/17 19:12 Dose: 0.25 mg Potassium Chloride/Dextrose/Sod Cl (D5 Ns With 20 Meq Kcl) 1,000 mls @ 75 mls/ hr IV ASDIRECTED [facility] Last Admin: 01/21/17 09:27 Dose: 75 mls/hr Piperacillin Sod/Tazobactam (Sod 4.5 gm/ Dextrose/Water) 100 mls @ 25 mls/hr IV Q8H [facility] Insulin Aspart (Novolog) 0 unit SUBCUT [facility] PRN Reason: Protocol Levalbuterol HCl (Xopenex) 1.25 mg INH QIDRT [facility] Levothyroxine Sodium (Synthroid) 88 mcg PO ACBRK [facility] Last Admin: 01/21/17 06:27 Dose: Not Given Lisinopril (Prinivil) 20 mg PO DAILY [facility] Last Admin: 01/21/17 12:04 Dose: Not Given Lorazepam (Ativan) 2 mg IVPUSH Q4H PRN PRN Reason: Seizures Lorazepam (Ativan) 0.25 mg IVPUSH Q6H PRN PRN Reason: Anxiety Last Admin: 01/20/17 00:26 Dose: 0.25 mg Metoprolol Succinate (Toprol Xl) 50 mg PO BID [facility] Last Admin: 01/21/17 11:40 Dose: 50 mg Metoprolol Tartrate (Lopressor) 5 mg IVPUSH Q4H PRN PRN Reason: Tachycardia Last Admin: 01/20/17 23:03 Dose: 5 mg Ondansetron HCl (Zofran) 4 mg IV Q6H PRN PRN Reason: Nausea/Vomiting Last Admin: 01/14/17 09:42 Dose: 4 mg Cyclosporine ( Restasis) Ophth Solution 0 each EYEBOTH BID [facility] Last Admin: 01/20/17 20:30 Dose: 1 each [Systane 0.3-0.4% Eye Drops] 1 D Own Med 0 each EYEBOTH BID [facility] Last Admin: 01/20/17 20:33 Dose: Not Given Polyethylene Glycol (Miralax) 17 gm PO DAILY PRN PRN Reason: Constipation Last Admin: 01/14/17 06:39 Dose: 17 gm Quetiapine Fumarate (Seroquel) 25 mg PO DAILY [facility] Last Admin: 01/21/17 12:05 Dose: Not Given Saccharomyces Boulardii (Florastor) 250 mg PO BID [facility] Last Admin: 01/21/17 12:04 Dose: Not Given Senna/Docusate Sodium (Senna Plus) 1 tab PO BID PRN PRN Reason: Constipation Last Admin: 01/19/17 08:58 Dose: 1 tab Simvastatin (Zocor) 20 mg PO BEDTIME [facility] Last Admin: 01/20/17 20:23 Dose: 20 mg Temazepam (Restoril) 7.5 mg PO BEDTIME PRN PRN Reason: Sleep Last Admin: 01/20/17 22:32 Dose: 7.5 mg Discontinued Medications Albuterol/Ipratropium (Duoneb 3.0-0.5 Mg/3 Ml) 3 ml NEB Q4H PRN PRN Reason: Shortness Of Breath/wheezing Bumetanide (Bumex) 0.5 mg IVPUSH ONETIME ONE Stop: 01/17/17 21:01 Last Admin: 01/17/17 22:13 Dose: 0.5 mg Bumetanide (Bumex) 1 mg IVPUSH ONETIME ONE Stop: 01/18/17 12:06 Last Admin: 01/18/17 13:20 Dose: 1 mg Bumetanide (Bumex) 0.5 mg IVPUSH ONETIME ONE Stop: 01/19/17 07:01 Bumetanide (Bumex) 1 mg IVPUSH ONETIME ONE Stop: 01/19/17 07:01 Last Admin: 01/19/17 06:15 Dose: 1 mg Carbamazepine (Tegretol) 300 mg PO TID [facility] Last Admin: 01/12/17 16:28 Dose: 300 mg Carbamazepine (Tegretol) 200 mg PO TID [facility] Last Admin: 01/12/17 20:09 Dose: 200 mg Carbamazepine (Tegretol Tab) 200 mg PO TID [facility] Last Admin: 01/14/17 08:18 Dose: 200 mg Carbamazepine (Tegretol) 150 mg PO TID [facility] Last Admin: 01/14/17 16:01 Dose: Not Given Carbamazepine (Tegretol) 150 mg PO BID [facility] Last Admin: 01/17/17 08:45 Dose: 150 mg Diazepam (Valium.) 5 mg PO ONETIME ONE Stop: 01/14/17 11:07 Last Admin: 01/14/17 11:27 Dose: 5 mg Diltiazem HCl (Cardizem Cd) 120 mg PO DAILY [facility] Last Admin: 01/18/17 08:19 Dose: 120 mg Diltiazem HCl (Cardizem) 60 mg PO ONETIME ONE Stop: 01/18/17 12:16 Last Admin: 01/18/17 13:20 Dose: 60 mg Diltiazem HCl (Cardizem) 30 mg PO ONETIME ONE Stop: 01/18/17 12:16 Last Admin: 01/18/17 13:20 Dose: 30 mg Diltiazem HCl (Cardizem Cd) 240 mg PO DAILY [facility] Diltiazem HCl (Cardizem Cd) 120 mg PO DAILY [facility] Last Admin: 01/20/17 08:01 Dose: 120 mg Diltiazem HCl (Diltiazem) 10 mg IVPUSH ONETIME ONE Stop: 01/19/17 11:36 Famotidine (Pepcid) 20 mg IVPUSH BID [facility] Stop: 01/16/17 23:59 Last Admin: 01/16/17 20:18 Dose: 20 mg Furosemide (Lasix) 20 mg PO DAILY PRN PRN Reason: Edema Furosemide (Lasix) 20 mg PO ONETIME ONE Stop: 01/17/17 07:31 Last Admin: 01/17/17 08:48 Dose: 20 mg Gabapentin (Neurontin) 100 mg PO DAILY [facility] Last Admin: 01/12/17 09:10 Dose: 100 mg Promethazine HCl 12.5 mg/ (Sodium Chloride) 50.5 mls @ 100 mls/hr IV Q6H PRN PRN Reason: Nausea/Vomiting Magnesium Sulfate 2 gm/ Premix 50 mls @ 25 mls/hr IV ONETIME ONE Stop: 01/13/17 12:59 Last Admin: 01/13/17 12:25 Dose: 25 mls/hr Dextrose/Sodium Chloride (Dextrose 5%-Normal Saline) 1,000 mls @ 75 mls/hr IV ASDIRECTED [facility] Last Admin: 01/17/17 04:53 Dose: 75 mls/hr Magnesium Sulfate 2 gm/ Premix 50 mls @ 25 mls/hr IV ONETIME ONE Stop: 01/15/17 10:59 Last Admin: 01/15/17 09:36 Dose: 25 mls/hr Azithromycin 500 mg/ Sodium (Chloride) 250 mls @ 250 mls/hr IV ONETIME ONE Stop: 01/15/17 20:25 Last Admin: 01/15/17 20:40 Dose: 250 mls/hr Ceftriaxone Sodium 1 gm/ (Sodium Chloride) 100 mls @ 200 mls/hr IV ONETIME ONE Stop: 01/15/17 21:00 Last Admin: 01/15/17 21:52 Dose: 200 mls/hr Ceftriaxone Sodium 1 gm/ (Sodium Chloride) 100 mls @ 200 mls/hr IV Q24H [facility] Last Admin: 01/16/17 19:36 Dose: Not Given Ceftriaxone Sodium 1 gm/ (Sodium Chloride) 100 mls @ 200 mls/hr IV Q24H [facility] Last Admin: 01/17/17 11:11 Dose: 200 mls/hr Azithromycin 500 mg/ Sodium (Chloride) 250 mls @ 250 mls/hr IV Q24H [facility] Last Admin: 01/17/17 10:41 Dose: Not Given Azithromycin 500 mg/ Sodium (Chloride) 250 mls @ 250 mls/hr IV ONETIME ONE Stop: 01/16/17 14:44 Last Admin: 01/16/17 14:20 Dose: 250 mls/hr Metronidazole 500 mg/ Premix 100 mls @ 100 mls/hr IV Q8H [facility] Last Admin: 01/20/17 09:46 Dose: 100 mls/hr Ceftriaxone Sodium 1 gm/ (Dextrose/Water) 100 mls @ 200 mls/hr IV Q24H [facility] Ceftriaxone Sodium 1 gm/ (Dextrose/Water) 100 mls @ 200 mls/hr IV Q24H [facility] Last Admin: 01/18/17 11:29 Dose: 200 mls/hr Piperacillin Sod/Tazobactam (Sod 4.5 gm/ Dextrose/Water) 100 mls @ 200 mls/hr IV ONETIME ONE Stop: 01/18/17 12:29 Last Admin: 01/18/17 13:21 Dose: 200 mls/hr Piperacillin Sod/Tazobactam (Sod 4.5 gm/ Dextrose/Water) 100 mls @ 25 mls/hr IV Q8H [facility] Stop: 01/20/17 17:00 Last Admin: 01/20/17 11:44 Dose: 25 mls/hr Esmolol HCl (Brevibloc In Ns Premix) 2.5 gm in 250 mls @ 0 mls/hr IV TITRATE [facility]; 50 MCG/KG/MIN PRN Reason: Protocol Diltiazem HCl 125 mg/ Sodium (Chloride) 125 mls @ 5 mls/hr IV TITRATE [facility]; 5 MG /HR PRN Reason: Protocol Diltiazem HCl 125 mg/ Sodium (Chloride) 125 mls @ 2.5 mls/hr IV TITRATE [facility]HELLE; 2.5 MG/HR PRN Reason: Protocol Last Titration: 01/20/17 09:29 Dose: 0 mg/hr, 0 mls/hr Ampicillin Sodium/Sulbactam (Sodium 1.5 gm/ Sodium Chloride) 100 mls @ 200 mls/ hr IV Q12H [facility] Last Admin: 01/21/17 08:59 Dose: 200 mls/hr Potassium Chloride 10 meq/ (Premix) 100 mls @ 100 mls/hr IV Q1H [facility] Stop: 01/21/17 12:59 Last Admin: 01/21/17 12:06 Dose: Not Given Potassium Chloride 10 meq/ (Premix) 100 mls @ 100 mls/hr IV Q1H [facility] Stop: 01/21/17 11:29 Last Admin: 01/21/17 11:40 Dose: 100 mls/hr Lorazepam (Ativan) 0.25 mg IV Q6H PRN PRN Reason: Anxiety Last Admin: 01/17/17 05:53 Dose: 0.25 mg Lorazepam (Ativan) 0.25 mg IV ONETIME ONE Stop: 01/18/17 09:16 Last Admin: 01/18/17 09:29 Dose: 0.25 mg Magnesium Oxide (Magnesium Oxide) 400 mg PO ONETIME ONE Stop: 01/13/17 08:01 Last Admin: 01/13/17 12:13 Dose: Not Given Magnesium Oxide (Magnesium Oxide) 800 mg PO ONETIME ONE Stop: 01/18/17 08:31 Last Admin: 01/18/17 08:24 Dose: 800 mg Magnesium Sulfate (Pharmacy To Dose - Magnesium Replacement) 1 dose .XX ASDIRECTED [facility] Metoprolol Succinate (Toprol Xl) 50 mg PO DAILY [facility] Last Admin: 01/18/17 08:22 Dose: 50 mg Metoprolol Succinate (Toprol Xl) 100 mg PO BID [facility] Last Admin: 01/20/17 20:23 Dose: 100 mg Modafinil (Provigil) 50 mg PO DAILY [facility] Last Admin: 01/15/17 09:26 Dose: 50 mg Modafinil (Provigil) 100 mg PO DAILY [facility] Last Admin: 01/17/17 08:47 Dose: 100 mg Ondansetron HCl (Zofran Odt) 4 mg PO Q6H [facility] Last Admin: 01/21/17 12:07 Dose: Not Given Phenytoin Sodium (Phenytoin) 100 mg PO BID [facility] Last Admin: 01/15/17 20:46 Dose: Not Given Potassium Chloride (Pharmacy To Dose - Potassium Replacement) 1 dose .XX ASDIRECTED [facility] Propofol (Diprivan 20 Ml) Confirm Administered Dose 200 mg .ROUTE .STK-MED ONE Stop: 01/21/17 12:19 Quetiapine Fumarate (Seroquel) 25 mg PO DAILY [facility] Last Admin: 01/15/17 09:26 Dose: 25 mg Quetiapine Fumarate (Seroquel) 25 mg PO ONETIME ONE Stop: 01/18/17 11:05 Last Admin: 01/18/17 11:23 Dose: 25 mg Saccharomyces Boulardii (Florastor) 250 mg PO DAILY [facility] Last Admin: 01/17/17 08:31 Dose: 250 mg - Exam Quality Assessment: Supplemental Oxygen, DVT Prophylaxis General: Alert, Oriented, Cooperative, No Acute Distress HEENT: Pupils Equal, Pupils Reactive, EOMI Neck: Supple, Trachea Midline Lungs: Normal Respiratory Effort Cardiovascular: Regular Rate, Irregular Rhythm, Tachycardia GI/Abdominal Exam: Normal Bowel Sounds, Soft, Non-Tender, No Organomegaly, No Distention (Female) Exam: Deferred Back Exam: Normal Inspection Extremities: Normal Inspection Skin: Warm, Dry Neurological: No New Focal Deficit Psy/Mental Status: Alert - Problem List Review Problem List Initiated/Reviewed/Updated: Yes - My Orders Last 24 Hours: My Active Orders 01/21/17 09:09 Blood Glucose Check, Bedside [RC] 01/21/17 09:15 Dextrose 5%-0.9% NaCl with KCl [D5 NS with 20 mEq KCl] 1,000 ml IV ASDIRECTED 01/21/17 16:00 Levalbuterol HCl [Xopenex] 1.25 mg INH QIDRT 01/21/17 18:00 BASIC METABOLIC PANEL,BMP [CHEM] Routine MAGNESIUM [CHEM] Routine 01/21/17 21:00 Insulin Aspart [NovoLOG] See Protocol SUBCUT Piperacillin/Tazobactam [Zosyn] 4.5 gm Dextrose 5% in Water 100 ml IV Q8H - Plan Plan:: Assessment/Plan: Acute: AMS/Delirium with hallucinations but less agitation/anxiety - She is on high dose anticonvulsant medications [employer]CE[employer]: Gabapentin, Phenytoin and Carbamazepine-- has been trimmed to only carbamazepine 200mg BID; stable and without any evidence of seizure - Hx of seizure disorder s/p hemorrhagic stroke in the past - She does not follow a Neurologist - [employer] cont to follow - Seroquel scheduled daily and Ativan PRN for restlessness - Has been off of 1:1 care since yesterday afternoon Aspiration Pneumonia, Possibly Improving - She has been altered with fluctuating level of alertness (delirium) - CXR shows right side pneumonia with small pleural effusion - Continue IV abx; consulted with pharmacy- now recommends unasyn; Continue florastor - Supplemental O2, Routine RT care and Bronchodilators - Sputum Cx/Sx--unable to obtain as patient does not understand/unable to follow instructions; as has been on abx tx for days now will cxl orders - WBC is now normal but CRP continues to go up - Cont SUP[employer]Y CH[employer]NER evaluation ongoing daily Small Left Side Pleural Effusion, Stable - New abnormal finding on CXR - IS as directed- if able to cooperate - Aspiration precaution - Serial CXR as needed; will repeat CXR in AM - BNP elevated at 5,000--> 3707 today 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 Atrial Fibrillation, Uncontrolled - Carries a hx/o PAF in the past - EKG obtained: Atrial Fibrillation with HR of 120 - Repeat CXR with stable aspiration findings - BNP/Echo as above - Stroke PPx: CI due to brain bleed; repeat Head CT scan in AM - Changes to rate control regimen: Metoprolol 50 mg po BID and Cardizem SA 60 mg po QID Subdural Hematoma and Acute Right Cortical Infarct, Stable - S/p Fall - Has hx/o brain bleed in the past - Head CT scan confirms it: 5 mm in the left temporo-parietal region and 7 mm in the right parietal region, MRI done following day shows slight worsening of bleed- see reports - Risk factor: On Warfarin, fall and hx of CVA/hemorrhagic with subsequent seizure disorder in the past - ED provider spoke to Dr. Schmidt, Neurosurgeon: recommend CT scan in 2 weeks then follow up in the office - Continue Neuro check Q4 - Continue to Hold Warfarin and ASA - Follow up MRI: essentially the same from previous study; no acute new abnormal findings - Follow up head CT done today with stable findings with areas of micro bleeding within prior noted areas of density/subdural bleeds. - Reviewed with Dr. Nesbitt, will not resume anticoagulant on discharge based on these findings. Generalized Weakness, Unchanged - Likely 2/2 above and poor intake - Continue PT/OT - Thyroid panel: normal - Vit D level: low, started supplement as below - We offered [facility] for stroke rehab and her family was receptive Vitamin D-Deficiency, New - Vit D level 21 (low) - Continue Vit D supplement Subtherapeutic INR, Unchanged---Holding warfarin due to continued areas of micro bleeding on head CT - Last INR 1.18 - Continue to hold off Warfarin/ASA due to brain bleed - Recommend switching to DOACs (defer to PCP after discharge) Right Shoulder Pain, New - S/p Fall - Tender with palpation and pain with active movement - XR with 3 views to r/o acute fracture is negative - PRN pain medication; PT/OT Poor Nutritional Status - She is able to swallow/eat and drink but not meeting her nutritional requirement - She is breaking muscle down at this point and not able to do PT/OT - Offered short term PEG tube placement to children and they agreed for short term use - Dr. Gallagher consulted Resolved: S/P Fall at [facility] - High Fall Risk - Polypharmacy - Fall precautions in place Chronic: Impaired Vision HTN- stable, 120-130's/80-90's HLD- will check lipid panel Atrial Fibrillation via Holter Monitor ---afib with RVR not responding to tx; will transfer patient to ICU for further treatment and closer monitoring. Mitral Valve Insufficiency GERD- GI prophylax OA/DJD Osteoporosis Hypothyroidism- stable Trigerminal Neuralgia, Continue Carbamezapin Inflammatory Spondylopathy Hx/o DVT/TIA Hx/o Brain Bleed Hx/o seizure s/p hemorrhagic stroke Anxiety Plan: Routine AM Labs Continue Neuro check Q4, SUP[employer]Y CH[employer]NER and PT/OT DVT PPx: SCDs GI prophylaxis: H2B IV BID Consult Dr. Gallagher for PEG Tube placement today Aspiration/Fall/Seizure Precautions Additional orders as above CM/SW for d/c planning- Vibra with PEG Tube for short tem use until her nutritional requirement is met Code Status: DNR/DNI Prognosis remains guarded-poor. LOS > 96 hours due to slow response to treatment , planned PEG tube placement in AM and pending placement to [facility] for rehab likely next week.
[2017-01-21] MEDS ORDERED: Ampicillin/Sulbactam Na 1.5 GM in Sodium Chloride 0.9% 100 ML IV ONE (14:02)
[2017-01-21] MEDS ORDERED: Bacitracin Oint 15 GM Tube ONE (14:13)
--- NOTE | 2017-01-21 14:42 | PCM.OPNOTE ---
- General Post-Op/Procedure Note Date of Surgery/Procedure: 01/21/17 Operative Procedure(s): PEG Pre Op Diagnosis: CVA/dysphagia Post-Op Diagnosis: Same Anesthesia Technique: MAC Primary Surgeon: Dne Gallagher EBL in mLs: 0 Complications: None Condition: Good Free Text/Narrative:: Intake & Output 01/20/17 01/21/17 01/21/17 23:59 07:59 15:59 Intake Total 432 200 Output Total 500 Balance 432 200 -500
[2017-01-21] MEDS: Acetaminophen 325 MG Tab PO PRN (15:31)
[2017-01-21] MEDS: LORazepam 2 MG/ML MDV IVPUSH PRN (17:31)
[2017-01-21] MEDS: Levalbuterol HCl 1.25 MG/3 ML Neb INH SCH ×2 (18:03→21:01)
[2017-01-21] MEDS: Simvastatin 20 MG Tab PO SCH (20:43)
[2017-01-21] MEDS: Piperacillin/Tazobactam 4.5 GM in Dextrose 5% in Water 100 ML IV SCH ×2 (20:43)
[2017-01-21] MEDS: Insulin Aspart 100 Units/ML 3 ML Pen SUBCUT SCH (21:56)
[2017-01-21] MEDS: Temazepam 7.5 MG Cap PO PRN (22:03)
[2017-01-22] MEDS: Dextrose 5%-0.9% NaCl with KCl 1,000 ML IV SCH (00:29)
[2017-01-22] MEDS: Levothyroxine 88 MCG Tab PO SCH (05:55)
[2017-01-22] MEDS: Diltiazem IR 60 MG Tab PO SCH ×3 (05:55→18:30)
[2017-01-22] MEDS: Piperacillin/Tazobactam 4.5 GM in Dextrose 5% in Water 100 ML IV SCH ×6 (05:56→20:05)
[2017-01-22] MEDS: Levalbuterol HCl 1.25 MG/3 ML Neb INH SCH ×4 (06:33→20:38)
[2017-01-22] MEDS: Insulin Aspart 100 Units/ML 3 ML Pen SUBCUT SCH ×2 (08:18→20:17)
[2017-01-22] MEDS: CYCLOSPORINE EYEBOTH SCH ×2 (08:19→20:18)
[2017-01-22] MEDS: Famotidine 20 MG/2 ML SDV IVPUSH SCH (08:23)
[2017-01-22] MEDS: Metoprolol Succinate 50 MG Tab.ER PO SCH ×2 (08:23→20:12)
[2017-01-22] MEDS: Cholecalciferol (Vitamin D3) 1,000 Unit Tab PO SCH (08:23)
[2017-01-22] MEDS: carBAMazepine 200 MG Tab PO SCH ×2 (08:23→20:11)
[2017-01-22] MEDS: Lisinopril 20 MG Tab PO SCH (08:24)
[2017-01-22] MEDS: Saccharomyces Boulardii (Probiotic) 250 MG Cap PO SCH ×2 (08:24→20:11)
[2017-01-22] MEDS: QUEtiapine 25 MG Tab PO SCH (08:24)
--- NOTE | 2017-01-22 11:03 | PCM.SURGPN ---
- General Info Date of Service: 01/22/17 Functional Status: Reports: Pain Controlled - Review of Systems Gastrointestinal: Reports: No Symptoms - Patient Data Vitals - Most Recent: Last Vital Signs Temp 98.9 F 01/22/17 08:00 Pulse 106 H 01/22/17 08:23 Resp 24 H 01/22/17 08:00 BP 125/85 01/22/17 08:24 Pulse Ox 96 01/22/17 09:06 Weight - Most Recent: 62.959 kg I&O - Last 24 Hours: Intake & Output 01/21/17 01/22/17 01/22/17 23:59 07:59 15:59 Intake Total 683 1070 547 Balance 683 1070 547 Lab Results Last 24 Hrs: Laboratory Results - last 24 hr 01/21/17 01/21/17 01/21/17 Range/Units 12:25 17:56 21:39 WBC (3.98-10.04) K/mm3 RBC (3.98-5.22) M/mm3 Hgb (11.2-15.7) gm/L Hct (34.1-44.9) % MCV (79.4-94.8) fl MCH (25.6-32.2) pg MCHC (32.2-35.5) g/dl RDW Std Deviation (36.4-46.3) fL Plt Count (182-369) K/mm3 MPV (9.4-12.3) fl Neut % (Auto) (34.0-71.1) % Lymph % (Auto) (19.3-51.7) % [place] % (Auto) (4.7-12.5) % Eos % (Auto) (0.7-5.8) Baso % (Auto) (0.1-1.2) % Neut # (Auto) (1.56-6.13) K/mm3 Lymph # (Auto) (1.18-3.74) K/mm3 [place] # (Auto) (0.24-0.36) K/mm3 Eos # (Auto) (0.04-0.36) K/mm3 Baso # (Auto) (0.01-0.08) K/mm3 Sodium 145 (136-145) mEq/L Potassium 3.7 (3.5-5.1) mEq/L Chloride 107 (98-107) mEq/L Carbon Dioxide 29 (21-32) mEq/L Anion Gap 12.7 (5-15) BUN 19 H (7-18) mg/dL Creatinine 1.0 (0.55-1.02) mg/dL Est Cr Clr Drug Dosing 33.41 mL/min Estimated GFR (MDRD) 53 (>60) mL/min BUN/Creatinine Ratio 19.0 H (14-18) Glucose 131 H (83-115) mg/dL POC Glucose 116 H 135 H (83-110) mg/dL Calcium 8.9 (8.5-10.1) mg/dL Magnesium 1.7 L (1.8-2.4) mg/dl 01/22/17 01/22/17 Range/Units 08:56 10:40 WBC 8.06 (3.98-10.04) K/mm3 RBC 4.11 (3.98-5.22) M/mm3 Hgb 12.2 (11.2-15.7) gm/L Hct 37.6 (34.1-44.9) % MCV 91.5 (79.4-94.8) fl MCH 29.7 (25.6-32.2) pg MCHC 32.4 (32.2-35.5) g/dl RDW Std Deviation 47.3 H (36.4-46.3) fL Plt Count 243 (182-369) K/mm3 MPV 9.6 (9.4-12.3) fl Neut % (Auto) 66.8 (34.0-71.1) % Lymph % (Auto) 12.5 L (19.3-51.7) % [place] % (Auto) 13.2 H (4.7-12.5) % Eos % (Auto) 6.7 H (0.7-5.8) Baso % (Auto) 0.4 (0.1-1.2) % Neut # (Auto) 5.39 (1.56-6.13) K/mm3 Lymph # (Auto) 1.01 L (1.18-3.74) K/mm3 [place] # (Auto) 1.06 H (0.24-0.36) K/mm3 Eos # (Auto) 0.54 H (0.04-0.36) K/mm3 Baso # (Auto) 0.03 (0.01-0.08) K/mm3 Sodium (136-145) mEq/L Potassium (3.5-5.1) mEq/L Chloride (98-107) mEq/L Carbon Dioxide (21-32) mEq/L Anion Gap (5-15) BUN (7-18) mg/dL Creatinine (0.55-1.02) mg/dL Est Cr Clr Drug Dosing mL/min Estimated GFR (MDRD) (>60) mL/min BUN/Creatinine Ratio (14-18) Glucose (83-115) mg/dL POC Glucose 175 H (83-110) mg/dL Calcium (8.5-10.1) mg/dL Magnesium (1.8-2.4) mg/dl Boy Results Last 24 Hrs: Microbiology 01/15/17 20:20 Aerobic Blood Culture - Preliminary Blood NO GROWTH AFTER 6 DAYS Anaerobic Blood Culture - Preliminary NO GROWTH AFTER 6 DAYS 01/15/17 20:30 Aerobic Blood Culture - Preliminary Blood NO GROWTH AFTER 6 DAYS Anaerobic Blood Culture - Preliminary NO GROWTH AFTER 6 DAYS Med Orders - Current: Current Medications Acetaminophen (Tylenol) 650 mg PO Q4H PRN PRN Reason: Pain (Mild 1-3)/fever Last Admin: 01/21/17 15:31 Dose: 650 mg Acetaminophen (Tylenol) 650 mg RECTAL Q4H PRN PRN Reason: Pain/Fever Hydrocodone Bitart/Acetaminophen ([place] 325-5 Mg) 1 tab PO Q4H PRN PRN Reason: Pain (moderate 4-6) Bisacodyl (Dulcolax) 5 mg PO DAILY PRN PRN Reason: Constipation Last Admin: 01/19/17 04:58 Dose: 5 mg Bisacodyl (Dulcolax) 10 mg RECTAL DAILY PRN PRN Reason: Constipation Last Admin: 01/15/17 06:31 Dose: 10 mg Carbamazepine (Tegretol Tab) 200 mg PO BID [facility] Last Admin: 01/22/17 08:23 Dose: 200 mg Cholecalciferol (Vitamin D3) 2,000 units PO DAILY [facility] Last Admin: 01/22/17 08:23 Dose: 2,000 units Diltiazem HCl (Cardizem) 60 mg PO Q6HR [facility] Last Admin: 01/22/17 05:55 Dose: 60 mg Docusate Sodium (Colace) 100 mg PO BID PRN PRN Reason: Constipation Famotidine (Pepcid) 20 mg GTUBE DAILY [facility] Hydralazine HCl (Apresoline) 10 mg IVPUSH Q4H PRN PRN Reason: Hypertension Hydromorphone HCl (Dilaudid) 0.25 mg IVPUSH Q2H PRN PRN Reason: Pain (severe 7-10) Last Admin: 01/18/17 19:12 Dose: 0.25 mg Piperacillin Sod/Tazobactam (Sod 4.5 gm/ Dextrose/Water) 100 mls @ 25 mls/hr IV Q8H [facility] Last Admin: 01/22/17 05:56 Dose: 25 mls/hr Insulin Aspart (Novolog) 0 unit SUBCUT [facility] PRN Reason: Protocol Last Admin: 01/22/17 08:18 Dose: Not Given Levalbuterol HCl (Xopenex) 1.25 mg INH QIDRT [facility] Last Admin: 01/22/17 09:04 Dose: 1.25 mg Levothyroxine Sodium (Synthroid) 88 mcg PO ACBRK [facility] Last Admin: 01/22/17 05:55 Dose: 88 mcg Lisinopril (Prinivil) 20 mg PO DAILY [facility] Last Admin: 01/22/17 08:24 Dose: 20 mg Lorazepam (Ativan) 2 mg IVPUSH Q4H PRN PRN Reason: Seizures Lorazepam (Ativan) 0.25 mg IVPUSH Q6H PRN PRN Reason: Anxiety Last Admin: 01/21/17 17:31 Dose: 0.25 mg Metoprolol Succinate (Toprol Xl) 50 mg PO BID [facility] Last Admin: 01/22/17 08:23 Dose: 50 mg Metoprolol Tartrate (Lopressor) 5 mg IVPUSH Q4H PRN PRN Reason: Tachycardia Last Admin: 01/20/17 23:03 Dose: 5 mg Ondansetron HCl (Zofran) 4 mg IV Q6H PRN PRN Reason: Nausea/Vomiting Last Admin: 01/14/17 09:42 Dose: 4 mg Cyclosporine ( Restasis) Ophth Solution 0 each EYEBOTH BID [facility] Last Admin: 01/22/17 08:19 Dose: 1 each [Systane 0.3-0.4% Eye Drops] 1 D Own Med 0 each EYEBOTH BID [facility] Last Admin: 01/22/17 08:20 Dose: 1 each Polyethylene Glycol (Miralax) 17 gm PO DAILY PRN PRN Reason: Constipation Last Admin: 01/14/17 06:39 Dose: 17 gm Quetiapine Fumarate (Seroquel) 25 mg PO DAILY [facility] Last Admin: 01/22/17 08:24 Dose: 25 mg Saccharomyces Boulardii (Florastor) 250 mg PO BID [facility] Last Admin: 01/22/17 08:24 Dose: 250 mg Senna/Docusate Sodium (Senna Plus) 1 tab PO BID PRN PRN Reason: Constipation Last Admin: 01/19/17 08:58 Dose: 1 tab Simvastatin (Zocor) 20 mg PO BEDTIME [facility] Last Admin: 01/21/17 20:43 Dose: 20 mg Temazepam (Restoril) 7.5 mg PO BEDTIME PRN PRN Reason: Sleep Last Admin: 01/21/17 22:03 Dose: 7.5 mg Discontinued Medications Albuterol/Ipratropium (Duoneb 3.0-0.5 Mg/3 Ml) 3 ml NEB Q4H PRN PRN Reason: Shortness Of Breath/wheezing Bacitracin (Bacitracin Oint) Confirm Administered Dose 15 gm .ROUTE .STK-MED ONE Stop: 01/21/17 14:14 Last Admin: 01/21/17 14:10 Dose: 15 gm Bumetanide (Bumex) 0.5 mg IVPUSH ONETIME ONE Stop: 01/17/17 21:01 Last Admin: 01/17/17 22:13 Dose: 0.5 mg Bumetanide (Bumex) 1 mg IVPUSH ONETIME ONE Stop: 01/18/17 12:06 Last Admin: 01/18/17 13:20 Dose: 1 mg Bumetanide (Bumex) 0.5 mg IVPUSH ONETIME ONE Stop: 01/19/17 07:01 Bumetanide (Bumex) 1 mg IVPUSH ONETIME ONE Stop: 01/19/17 07:01 Last Admin: 01/19/17 06:15 Dose: 1 mg Carbamazepine (Tegretol) 300 mg PO TID [facility] Last Admin: 01/12/17 16:28 Dose: 300 mg Carbamazepine (Tegretol) 200 mg PO TID [facility] Last Admin: 01/12/17 20:09 Dose: 200 mg Carbamazepine (Tegretol Tab) 200 mg PO TID [facility] Last Admin: 01/14/17 08:18 Dose: 200 mg Carbamazepine (Tegretol) 150 mg PO TID [facility] Last Admin: 01/14/17 16:01 Dose: Not Given Carbamazepine (Tegretol) 150 mg PO BID [facility] Last Admin: 01/17/17 08:45 Dose: 150 mg Diazepam (Valium.) 5 mg PO ONETIME ONE Stop: 01/14/17 11:07 Last Admin: 01/14/17 11:27 Dose: 5 mg Diltiazem HCl (Cardizem Cd) 120 mg PO DAILY [facility] Last Admin: 01/18/17 08:19 Dose: 120 mg Diltiazem HCl (Cardizem) 60 mg PO ONETIME ONE Stop: 01/18/17 12:16 Last Admin: 01/18/17 13:20 Dose: 60 mg Diltiazem HCl (Cardizem) 30 mg PO ONETIME ONE Stop: 01/18/17 12:16 Last Admin: 01/18/17 13:20 Dose: 30 mg Diltiazem HCl (Cardizem Cd) 240 mg PO DAILY [facility] Diltiazem HCl (Cardizem Cd) 120 mg PO DAILY [facility] Last Admin: 01/20/17 08:01 Dose: 120 mg Diltiazem HCl (Diltiazem) 10 mg IVPUSH ONETIME ONE Stop: 01/19/17 11:36 Famotidine (Pepcid) 20 mg IVPUSH BID [facility] Stop: 01/16/17 23:59 Last Admin: 01/16/17 20:18 Dose: 20 mg Famotidine (Pepcid) 20 mg IVPUSH DAILY [facility] Last Admin: 01/22/17 08:23 Dose: 20 mg Furosemide (Lasix) 20 mg PO DAILY PRN PRN Reason: Edema Furosemide (Lasix) 20 mg PO ONETIME ONE Stop: 01/17/17 07:31 Last Admin: 01/17/17 08:48 Dose: 20 mg Gabapentin (Neurontin) 100 mg PO DAILY [facility] Last Admin: 01/12/17 09:10 Dose: 100 mg Promethazine HCl 12.5 mg/ (Sodium Chloride) 50.5 mls @ 100 mls/hr IV Q6H PRN PRN Reason: Nausea/Vomiting Magnesium Sulfate 2 gm/ Premix 50 mls @ 25 mls/hr IV ONETIME ONE Stop: 01/13/17 12:59 Last Admin: 01/13/17 12:25 Dose: 25 mls/hr Dextrose/Sodium Chloride (Dextrose 5%-Normal Saline) 1,000 mls @ 75 mls/hr IV ASDIRECTED [facility] Last Admin: 01/17/17 04:53 Dose: 75 mls/hr Magnesium Sulfate 2 gm/ Premix 50 mls @ 25 mls/hr IV ONETIME ONE Stop: 01/15/17 10:59 Last Admin: 01/15/17 09:36 Dose: 25 mls/hr Azithromycin 500 mg/ Sodium (Chloride) 250 mls @ 250 mls/hr IV ONETIME ONE Stop: 01/15/17 20:25 Last Admin: 01/15/17 20:40 Dose: 250 mls/hr Ceftriaxone Sodium 1 gm/ (Sodium Chloride) 100 mls @ 200 mls/hr IV ONETIME ONE Stop: 01/15/17 21:00 Last Admin: 01/15/17 21:52 Dose: 200 mls/hr Ceftriaxone Sodium 1 gm/ (Sodium Chloride) 100 mls @ 200 mls/hr IV Q24H [facility] Last Admin: 01/16/17 19:36 Dose: Not Given Ceftriaxone Sodium 1 gm/ (Sodium Chloride) 100 mls @ 200 mls/hr IV Q24H [facility] Last Admin: 01/17/17 11:11 Dose: 200 mls/hr Azithromycin 500 mg/ Sodium (Chloride) 250 mls @ 250 mls/hr IV Q24H [facility] Last Admin: 01/17/17 10:41 Dose: Not Given Azithromycin 500 mg/ Sodium (Chloride) 250 mls @ 250 mls/hr IV ONETIME ONE Stop: 01/16/17 14:44 Last Admin: 01/16/17 14:20 Dose: 250 mls/hr Metronidazole 500 mg/ Premix 100 mls @ 100 mls/hr IV Q8H [facility] Last Admin: 01/20/17 09:46 Dose: 100 mls/hr Ceftriaxone Sodium 1 gm/ (Dextrose/Water) 100 mls @ 200 mls/hr IV Q24H [facility] Ceftriaxone Sodium 1 gm/ (Dextrose/Water) 100 mls @ 200 mls/hr IV Q24H [facility] Last Admin: 01/18/17 11:29 Dose: 200 mls/hr Piperacillin Sod/Tazobactam (Sod 4.5 gm/ Dextrose/Water) 100 mls @ 200 mls/hr IV ONETIME ONE Stop: 01/18/17 12:29 Last Admin: 01/18/17 13:21 Dose: 200 mls/hr Piperacillin Sod/Tazobactam (Sod 4.5 gm/ Dextrose/Water) 100 mls @ 25 mls/hr IV Q8H [facility] Stop: 01/20/17 17:00 Last Admin: 01/20/17 11:44 Dose: 25 mls/hr Esmolol HCl (Brevibloc In Ns Premix) 2.5 gm in 250 mls @ 0 mls/hr IV TITRATE [facility]; 50 MCG/KG/MIN PRN Reason: Protocol Diltiazem HCl 125 mg/ Sodium (Chloride) 125 mls @ 5 mls/hr IV TITRATE [facility]; 5 MG /HR PRN Reason: Protocol Diltiazem HCl 125 mg/ Sodium (Chloride) 125 mls @ 2.5 mls/hr IV TITRATE [facility]; 2.5 MG/HR PRN Reason: Protocol Last Titration: 01/20/17 09:29 Dose: 0 mg/hr, 0 mls/hr Ampicillin Sodium/Sulbactam (Sodium 1.5 gm/ Sodium Chloride) 100 mls @ 200 mls/ hr IV Q12H [facility] Last Admin: 01/21/17 08:59 Dose: 200 mls/hr Potassium Chloride 10 meq/ (Premix) 100 mls @ 100 mls/hr IV Q1H [facility] Stop: 01/21/17 12:59 Last Admin: 01/21/17 12:06 Dose: Not Given Potassium Chloride/Dextrose/Sod Cl (D5 Ns With 20 Meq Kcl) 1,000 mls @ 75 mls/ hr IV ASDIRECTED [facility] Last Admin: 01/22/17 00:29 Dose: 75 mls/hr Potassium Chloride 10 meq/ (Premix) 100 mls @ 100 mls/hr IV Q1H [facility] Stop: 01/21/17 11:29 Last Admin: 01/21/17 11:40 Dose: 100 mls/hr Ampicillin Sodium/Sulbactam (Sodium 1.5 gm/ Sodium Chloride) 100 mls @ 200 mls/ hr IV ONETIME ONE Stop: 01/21/17 14:31 Last Admin: 01/21/17 15:40 Dose: 200 mls/hr Lorazepam (Ativan) 0.25 mg IV Q6H PRN PRN Reason: Anxiety Last Admin: 01/17/17 05:53 Dose: 0.25 mg Lorazepam (Ativan) 0.25 mg IV ONETIME ONE Stop: 01/18/17 09:16 Last Admin: 01/18/17 09:29 Dose: 0.25 mg Magnesium Oxide (Magnesium Oxide) 400 mg PO ONETIME ONE Stop: 01/13/17 08:01 Last Admin: 01/13/17 12:13 Dose: Not Given Magnesium Oxide (Magnesium Oxide) 800 mg PO ONETIME ONE Stop: 01/18/17 08:31 Last Admin: 01/18/17 08:24 Dose: 800 mg Magnesium Sulfate (Pharmacy To Dose - Magnesium Replacement) 1 dose .XX ASDIRECTED [facility] Metoprolol Succinate (Toprol Xl) 50 mg PO DAILY [facility] Last Admin: 01/18/17 08:22 Dose: 50 mg Metoprolol Succinate (Toprol Xl) 100 mg PO BID [facility] Last Admin: 01/20/17 20:23 Dose: 100 mg Modafinil (Provigil) 50 mg PO DAILY [facility] Last Admin: 01/15/17 09:26 Dose: 50 mg Modafinil (Provigil) 100 mg PO DAILY [facility] Last Admin: 01/17/17 08:47 Dose: 100 mg Ondansetron HCl (Zofran Odt) 4 mg PO Q6H [facility] Last Admin: 01/21/17 12:07 Dose: Not Given Phenytoin Sodium (Phenytoin) 100 mg PO BID [facility] Last Admin: 01/15/17 20:46 Dose: Not Given Potassium Chloride (Pharmacy To Dose - Potassium Replacement) 1 dose .XX ASDIRECTED [facility] Propofol (Diprivan 20 Ml) Confirm Administered Dose 200 mg .ROUTE .STK-MED ONE Stop: 01/21/17 12:19 Quetiapine Fumarate (Seroquel) 25 mg PO DAILY [facility] Last Admin: 01/15/17 09:26 Dose: 25 mg Quetiapine Fumarate (Seroquel) 25 mg PO ONETIME ONE Stop: 01/18/17 11:05 Last Admin: 01/18/17 11:23 Dose: 25 mg Saccharomyces Boulardii (Florastor) 250 mg PO DAILY [facility] Last Admin: 01/17/17 08:31 Dose: 250 mg - Exam GI/Abdominal Exam: Other (tube feeding tolerated ) - Problem List Review Problem List Initiated/Reviewed/Updated: Yes - My Orders Last 24 Hours: Active Orders 24 hr Category Date Time Status Patient Status [ADT] Routine ADT 01/22/17 09:25 Active Communication Order [RC] 08,12,16,20,00 Care 01/22/17 08:00 Active Communication Order [RC] QSPRN Care 01/21/17 14:57 Active Tube Feeding [Enteral Feedings] [RC] Q4H Care 01/21/17 15:04 Active COMPREHENSIVE METABOLIC PN,CMP [CHEM] Routine Lab 01/22/17 10:40 Received CRP [C-REACTIVE PROTEIN] [CHEM] Routine Lab 01/22/17 10:40 Received MAGNESIUM [CHEM] Routine Lab 01/22/17 10:40 Received Famotidine [Pepcid] Med 01/23/17 09:00 Active 20 mg GTUBE DAILY Insulin Aspart [NovoLOG] Med 01/21/17 21:00 Active See Protocol SUBCUT Levalbuterol HCl [Xopenex] Med 01/21/17 16:00 Active 1.25 mg INH QIDRT Piperacillin/Tazobactam [Zosyn] 4.5 gm Med 01/21/17 21:00 Active Dextrose 5% in Water 100 ml IV Q8H Schedule Procedure [COMM] Stat Oth 01/21/17 13:30 Ordered Medication Orders Acetaminophen (Tylenol) 650 mg PO Q4H PRN PRN Reason: Pain (Mild 1-3)/fever Last Admin: 01/21/17 15:31 Dose: 650 mg Admin: 01/16/17 14:16 Dose: 650 mg Admin: 01/16/17 08:22 Dose: 650 mg Admin: 01/15/17 19:32 Dose: 650 mg Admin: 01/11/17 23:57 Dose: 650 mg Acetaminophen (Tylenol) 650 mg RECTAL Q4H PRN PRN Reason: Pain/Fever Hydrocodone Bitart/Acetaminophen ([place] 325-5 Mg) 1 tab PO Q4H PRN PRN Reason: Pain (moderate 4-6) Bisacodyl (Dulcolax) 5 mg PO DAILY PRN PRN Reason: Constipation Last Admin: 01/19/17 04:58 Dose: 5 mg Admin: 01/14/17 11:27 Dose: 5 mg Bisacodyl (Dulcolax) 10 mg RECTAL DAILY PRN PRN Reason: Constipation Last Admin: 01/15/17 06:31 Dose: 10 mg Carbamazepine (Tegretol Tab) 200 mg PO BID [facility] Last Admin: 01/22/17 08:23 Dose: 200 mg Admin: 01/21/17 20:43 Dose: 200 mg Admin: 01/21/17 12:05 Dose: Admin: 01/20/17 20:23 Dose: 200 mg Admin: 01/20/17 07:59 Dose: 200 mg Admin: 01/19/17 21:51 Dose: 200 mg Admin: 01/19/17 08:58 Dose: 200 mg Admin: 01/18/17 22:47 Dose: Admin: 01/18/17 08:22 Dose: 200 mg Admin: 01/17/17 20:19 Dose: 200 mg Cholecalciferol (Vitamin D3) 2,000 units PO DAILY [facility] Last Admin: 01/22/17 08:23 Dose: 2,000 units Admin: 01/21/17 12:05 Dose: Admin: 01/20/17 08:00 Dose: 2,000 units Admin: 01/19/17 08:58 Dose: 2,000 units Admin: 01/18/17 08:19 Dose: 2,000 units Admin: 01/17/17 08:48 Dose: 2,000 units Admin: 01/16/17 08:26 Dose: Admin: 01/15/17 09:17 Dose: 2,000 units Admin: 01/14/17 11:27 Dose: 2,000 units Admin: 01/14/17 09:25 Dose: Diltiazem HCl (Cardizem) 60 mg PO Q6HR [facility] Last Admin: 01/22/17 05:55 Dose: 60 mg Admin: 01/21/17 23:57 Dose: 60 mg Admin: 01/21/17 18:19 Dose: 60 mg Admin: 01/21/17 13:26 Dose: Admin: 01/21/17 06:27 Dose: Docusate Sodium (Colace) 100 mg PO BID PRN PRN Reason: Constipation Famotidine (Pepcid) 20 mg GTUBE DAILY [facility] Hydralazine HCl (Apresoline) 10 mg IVPUSH Q4H PRN PRN Reason: Hypertension Hydromorphone HCl (Dilaudid) 0.25 mg IVPUSH Q2H PRN PRN Reason: Pain (severe 7-10) Last Admin: 01/18/17 19:12 Dose: 0.25 mg Admin: 01/18/17 15:26 Dose: 0.25 mg Admin: 01/18/17 03:04 Dose: 0.25 mg Admin: 01/17/17 23:36 Dose: 0.25 mg Admin: 01/17/17 18:06 Dose: 0.25 mg Admin: 01/15/17 22:43 Dose: 0.25 mg Admin: 01/15/17 01:29 Dose: 0.25 mg Admin: 01/13/17 19:09 Dose: 0.25 mg Admin: 01/13/17 10:56 Dose: 0.25 mg Admin: 01/12/17 21:46 Dose: 0.25 mg Piperacillin Sod/Tazobactam (Sod 4.5 gm/ Dextrose/Water) 100 mls @ 25 mls/hr IV Q8H [facility] Last Admin: 01/22/17 05:56 Dose: 25 mls/hr Infusion: 01/22/17 00:43 Dose: 25 mls/hr Admin: 01/21/17 20:43 Dose: 25 mls/hr Insulin Aspart (Novolog) 0 unit SUBCUT , [facility] PRN Reason: Protocol Last Admin: 01/22/17 08:18 Dose: Admin: 01/21/17 21:56 Dose: Not Given Levalbuterol HCl (Xopenex) 1.25 mg INH QIDRT [facility] Last Admin: 01/22/17 09:04 Dose: 1.25 mg Admin: 01/22/17 06:33 Dose: Not Given Admin: 01/21/17 21:01 Dose: 1.25 mg Admin: 01/21/17 18:03 Dose: 1.25 mg Levothyroxine Sodium (Synthroid) 88 mcg PO ACBRK [facility] Last Admin: 01/22/17 05:55 Dose: 88 mcg Admin: 01/21/17 06:27 Dose: Admin: 01/20/17 05:37 Dose: 88 mcg Admin: 01/19/17 04:59 Dose: 88 mcg Admin: 01/18/17 05:33 Dose: 88 mcg Admin: 01/17/17 05:07 Dose: 88 mcg Admin: 01/15/17 05:30 Dose: Admin: 01/14/17 06:39 Dose: 88 mcg Admin: 01/13/17 05:36 Dose: Not Given Admin: 01/12/17 06:01 Dose: 88 mcg Lisinopril (Prinivil) 20 mg PO DAILY [facility] Last Admin: 01/22/17 08:24 Dose: 20 mg Admin: 01/21/17 12:04 Dose: Admin: 01/20/17 08:00 Dose: 20 mg Admin: 01/19/17 08:58 Dose: 20 mg Admin: 01/18/17 08:22 Dose: 20 mg Admin: 01/17/17 08:48 Dose: 20 mg Admin: 01/15/17 09:14 Dose: 20 mg Admin: 01/14/17 08:18 Dose: 20 mg Admin: 01/13/17 12:14 Dose: Admin: 01/12/17 09:11 Dose: 20 mg Lorazepam (Ativan) 2 mg IVPUSH Q4H PRN PRN Reason: Seizures Lorazepam (Ativan) 0.25 mg IVPUSH Q6H PRN PRN Reason: Anxiety Last Admin: 01/21/17 17:31 Dose: 0.25 mg Admin: 01/20/17 00:26 Dose: 0.25 mg Admin: 01/18/17 14:41 Dose: 0.25 mg Metoprolol Succinate (Toprol Xl) 50 mg PO BID [facility] Last Admin: 01/22/17 08:23 Dose: 50 mg Admin: 01/21/17 20:43 Dose: 50 mg Admin: 01/21/17 11:40 Dose: 50 mg Metoprolol Tartrate (Lopressor) 5 mg IVPUSH Q4H PRN PRN Reason: Tachycardia Last Admin: 01/20/17 23:03 Dose: 5 mg Admin: 01/19/17 06:13 Dose: 5 mg Admin: 01/19/17 01:42 Dose: 5 mg Admin: 01/18/17 20:46 Dose: 5 mg Admin: 01/18/17 14:58 Dose: 5 mg Admin: 01/18/17 09:12 Dose: 5 mg Admin: 01/18/17 02:59 Dose: 5 mg Admin: 01/17/17 22:21 Dose: 5 mg Admin: 01/17/17 16:04 Dose: 5 mg Admin: 01/17/17 09:26 Dose: 5 mg Admin: 01/17/17 04:57 Dose: 5 mg Admin: 01/17/17 00:57 Dose: 5 mg Admin: 01/16/17 20:53 Dose: 5 mg Ondansetron HCl (Zofran) 4 mg IV Q6H PRN PRN Reason: Nausea/Vomiting Last Admin: 01/14/17 09:42 Dose: 4 mg Admin: 01/13/17 10:50 Dose: 4 mg Cyclosporine ( Restasis) Ophth Solution 0 each EYEBOTH BID [facility] Last Admin: 01/22/17 08:19 Dose: 1 each Admin: 01/21/17 21:57 Dose: 1 each Admin: 01/21/17 09:00 Dose: 1 each Admin: 01/20/17 20:30 Dose: 1 each Admin: 01/20/17 08:10 Dose: 1 each Admin: 01/19/17 22:19 Dose: 1 each Admin: 01/19/17 08:59 Dose: 1 each Admin: 01/18/17 20:49 Dose: 1 each Admin: 01/15/17 20:46 Dose: Admin: 01/15/17 09:49 Dose: Admin: 01/14/17 22:48 Dose: Admin: 01/14/17 08:19 Dose: Admin: 01/13/17 21:15 Dose: Admin: 01/13/17 12:15 Dose: Admin: 01/12/17 20:10 Dose: Admin: 01/12/17 09:12 Dose: [Systane 0.3-0.4% Eye Drops] 1 D Own Med 0 each EYEBOTH BID [facility] Last Admin: 01/22/17 08:20 Dose: 1 each Admin: 01/21/17 21:57 Dose: 1 each Admin: 01/21/17 09:00 Dose: 1 each Admin: 01/20/17 20:33 Dose: Not Given Admin: 01/20/17 20:30 Dose: 1 each Admin: 01/20/17 08:10 Dose: 1 each Admin: 01/19/17 20:23 Dose: 1 each Admin: 01/19/17 08:59 Dose: 1 each Admin: 01/18/17 20:47 Dose: 1 each Admin: 01/18/17 09:07 Dose: 1 each Admin: 01/17/17 20:18 Dose: 1 each Admin: 01/17/17 08:43 Dose: 1 each Polyethylene Glycol (Miralax) 17 gm PO DAILY PRN PRN Reason: Constipation Last Admin: 01/14/17 06:39 Dose: 17 gm Quetiapine Fumarate (Seroquel) 25 mg PO DAILY [facility] Last Admin: 01/22/17 08:24 Dose: 25 mg Admin: 01/21/17 12:05 Dose: Admin: 01/20/17 08:00 Dose: 25 mg Admin: 01/19/17 09:01 Dose: 25 mg Saccharomyces Boulardii (Florastor) 250 mg PO BID [facility] Last Admin: 01/22/17 08:24 Dose: 250 mg Admin: 01/21/17 20:43 Dose: 250 mg Admin: 01/21/17 12:04 Dose: Admin: 01/20/17 20:29 Dose: 250 mg Admin: 01/20/17 07:59 Dose: 250 mg Admin: 01/19/17 22:19 Dose: 250 mg Admin: 01/19/17 09:11 Dose: 250 mg Admin: 01/18/17 22:47 Dose: Admin: 01/18/17 08:22 Dose: 250 mg Admin: 01/17/17 20:19 Dose: 250 mg Senna/Docusate Sodium (Senna Plus) 1 tab PO BID PRN PRN Reason: Constipation Last Admin: 01/19/17 08:58 Dose: 1 tab Simvastatin (Zocor) 20 mg PO BEDTIME [facility] Last Admin: 01/21/17 20:43 Dose: 20 mg Admin: 01/20/17 20:23 Dose: 20 mg Admin: 01/19/17 21:50 Dose: 20 mg Admin: 01/18/17 22:48 Dose: Admin: 01/17/17 20:19 Dose: 20 mg Admin: 01/16/17 20:56 Dose: Not Given Admin: 01/15/17 20:46 Dose: Not Given Admin: 01/14/17 22:49 Dose: Admin: 01/13/17 21:14 Dose: 20 mg Admin: 01/12/17 20:09 Dose: 20 mg Temazepam (Restoril) 7.5 mg PO BEDTIME PRN PRN Reason: Sleep Last Admin: 01/21/17 22:03 Dose: 7.5 mg Admin: 01/20/17 22:32 Dose: 7.5 mg Admin: 01/13/17 21:40 Dose: 7.5 mg Admin: 01/12/17 20:10 Dose: 7.5 mg - Plan Plan (Free Text/Narrative):: post stable s/p PEG tube placement [id number]
--- NOTE | 2017-01-22 11:14 | PCM.PN ---
- General Info Date of Service: 01/22/17 Functional Status: Reports: Pain Controlled, Tolerating Diet, Urinating - Review of Systems General: Reports: Weakness HEENT: Reports: No Symptoms Pulmonary: Reports: No Symptoms Cardiovascular: Reports: No Symptoms Gastrointestinal: Reports: No Symptoms Genitourinary: Reports: No Symptoms Musculoskeletal: Reports: No Symptoms Skin: Reports: No Symptoms Neurological: Reports: Confusion, Difficulty Walking Psychiatric: Reports: No Symptoms - Patient Data Vitals - Most Recent: Last Vital Signs Temp 37.2 C 01/22/17 08:00 Pulse 106 H 01/22/17 08:23 Resp 24 H 01/22/17 08:00 BP 125/85 01/22/17 08:24 Pulse Ox 96 01/22/17 09:06 Weight - Most Recent: 62.324 kg I&O - Last 24 Hours: Intake & Output 01/21/17 01/22/17 01/22/17 22:59 06:59 14:59 Intake Total 683 1070 547 Balance 683 1070 547 Lab Results Last 24 Hours: Laboratory Results - last 24 hr 01/21/17 01/21/17 01/21/17 Range/Units 12:25 17:56 21:39 WBC (3.98-10.04) K/mm3 RBC (3.98-5.22) M/mm3 Hgb (11.2-15.7) gm/L Hct (34.1-44.9) % MCV (79.4-94.8) fl MCH (25.6-32.2) pg MCHC (32.2-35.5) g/dl RDW Std Deviation (36.4-46.3) fL Plt Count (182-369) K/mm3 MPV (9.4-12.3) fl Neut % (Auto) (34.0-71.1) % Lymph % (Auto) (19.3-51.7) % Childress % (Auto) (4.7-12.5) % Eos % (Auto) (0.7-5.8) Baso % (Auto) (0.1-1.2) % Neut # (Auto) (1.56-6.13) K/mm3 Lymph # (Auto) (1.18-3.74) K/mm3 Childress # (Auto) (0.24-0.36) K/mm3 Eos # (Auto) (0.04-0.36) K/mm3 Baso # (Auto) (0.01-0.08) K/mm3 Sodium 145 (136-145) mEq/L Potassium 3.7 (3.5-5.1) mEq/L Chloride 107 (98-107) mEq/L Carbon Dioxide 29 (21-32) mEq/L Anion Gap 12.7 (5-15) BUN 19 H (7-18) mg/dL Creatinine 1.0 (0.55-1.02) mg/dL Est Cr Clr Drug Dosing 33.41 mL/min Estimated GFR (MDRD) 53 (>60) mL/min BUN/Creatinine Ratio 19.0 H (14-18) Glucose 131 H (83-115) mg/dL POC Glucose 116 H 135 H (83-110) mg/dL Calcium 8.9 (8.5-10.1) mg/dL Magnesium 1.7 L (1.8-2.4) mg/dl 01/22/17 01/22/17 Range/Units 08:56 10:40 WBC 8.06 (3.98-10.04) K/mm3 RBC 4.11 (3.98-5.22) M/mm3 Hgb 12.2 (11.2-15.7) gm/L Hct 37.6 (34.1-44.9) % MCV 91.5 (79.4-94.8) fl MCH 29.7 (25.6-32.2) pg MCHC 32.4 (32.2-35.5) g/dl RDW Std Deviation 47.3 H (36.4-46.3) fL Plt Count 243 (182-369) K/mm3 MPV 9.6 (9.4-12.3) fl Neut % (Auto) 66.8 (34.0-71.1) % Lymph % (Auto) 12.5 L (19.3-51.7) % Childress % (Auto) 13.2 H (4.7-12.5) % Eos % (Auto) 6.7 H (0.7-5.8) Baso % (Auto) 0.4 (0.1-1.2) % Neut # (Auto) 5.39 (1.56-6.13) K/mm3 Lymph # (Auto) 1.01 L (1.18-3.74) K/mm3 Childress # (Auto) 1.06 H (0.24-0.36) K/mm3 Eos # (Auto) 0.54 H (0.04-0.36) K/mm3 Baso # (Auto) 0.03 (0.01-0.08) K/mm3 Sodium (136-145) mEq/L Potassium (3.5-5.1) mEq/L Chloride (98-107) mEq/L Carbon Dioxide (21-32) mEq/L Anion Gap (5-15) BUN (7-18) mg/dL Creatinine (0.55-1.02) mg/dL Est Cr Clr Drug Dosing mL/min Estimated GFR (MDRD) (>60) mL/min BUN/Creatinine Ratio (14-18) Glucose (83-115) mg/dL POC Glucose 175 H (83-110) mg/dL Calcium (8.5-10.1) mg/dL Magnesium (1.8-2.4) mg/dl Boy Results Last 24 Hours: Microbiology 01/15/17 20:20 Aerobic Blood Culture - Preliminary Blood NO GROWTH AFTER 6 DAYS Anaerobic Blood Culture - Preliminary NO GROWTH AFTER 6 DAYS 01/15/17 20:30 Aerobic Blood Culture - Preliminary Blood NO GROWTH AFTER 6 DAYS Anaerobic Blood Culture - Preliminary NO GROWTH AFTER 6 DAYS Med Orders - Current: Current Medications Acetaminophen (Tylenol) 650 mg PO Q4H PRN PRN Reason: Pain (Mild 1-3)/fever Last Admin: 01/21/17 15:31 Dose: 650 mg Acetaminophen (Tylenol) 650 mg RECTAL Q4H PRN PRN Reason: Pain/Fever Hydrocodone Bitart/Acetaminophen (Alleghany 325-5 Mg) 1 tab PO Q4H PRN PRN Reason: Pain (moderate 4-6) Bisacodyl (Dulcolax) 5 mg PO DAILY PRN PRN Reason: Constipation Last Admin: 01/19/17 04:58 Dose: 5 mg Bisacodyl (Dulcolax) 10 mg RECTAL DAILY PRN PRN Reason: Constipation Last Admin: 01/15/17 06:31 Dose: 10 mg Carbamazepine (Tegretol Tab) 200 mg PO BID MICHELLE Last Admin: 01/22/17 08:23 Dose: 200 mg Cholecalciferol (Vitamin D3) 2,000 units PO DAILY [facility] Last Admin: 01/22/17 08:23 Dose: 2,000 units Diltiazem HCl (Cardizem) 60 mg PO Q6HR [facility] Last Admin: 01/22/17 05:55 Dose: 60 mg Docusate Sodium (Colace) 100 mg PO BID PRN PRN Reason: Constipation Famotidine (Pepcid) 20 mg GTUBE DAILY [facility] Hydralazine HCl (Apresoline) 10 mg IVPUSH Q4H PRN PRN Reason: Hypertension Hydromorphone HCl (Dilaudid) 0.25 mg IVPUSH Q2H PRN PRN Reason: Pain (severe 7-10) Last Admin: 01/18/17 19:12 Dose: 0.25 mg Piperacillin Sod/Tazobactam (Sod 4.5 gm/ Dextrose/Water) 100 mls @ 25 mls/hr IV Q8H [facility] Last Admin: 01/22/17 05:56 Dose: 25 mls/hr Insulin Aspart (Novolog) 0 unit SUBCUT [facility] PRN Reason: Protocol Last Admin: 01/22/17 08:18 Dose: Not Given Levalbuterol HCl (Xopenex) 1.25 mg INH QIDRT [facility] Last Admin: 01/22/17 09:04 Dose: 1.25 mg Levothyroxine Sodium (Synthroid) 88 mcg PO ACBRK [facility] Last Admin: 01/22/17 05:55 Dose: 88 mcg Lisinopril (Prinivil) 20 mg PO DAILY [facility] Last Admin: 01/22/17 08:24 Dose: 20 mg Lorazepam (Ativan) 2 mg IVPUSH Q4H PRN PRN Reason: Seizures Lorazepam (Ativan) 0.25 mg IVPUSH Q6H PRN PRN Reason: Anxiety Last Admin: 01/21/17 17:31 Dose: 0.25 mg Metoprolol Succinate (Toprol Xl) 50 mg PO BID [facility] Last Admin: 01/22/17 08:23 Dose: 50 mg Metoprolol Tartrate (Lopressor) 5 mg IVPUSH Q4H PRN PRN Reason: Tachycardia Last Admin: 01/20/17 23:03 Dose: 5 mg Ondansetron HCl (Zofran) 4 mg IV Q6H PRN PRN Reason: Nausea/Vomiting Last Admin: 01/14/17 09:42 Dose: 4 mg Cyclosporine ( Restasis) Ophth Solution 0 each EYEBOTH BID [facility] Last Admin: 01/22/17 08:19 Dose: 1 each [Systane 0.3-0.4% Eye Drops] 1 D Own Med 0 each EYEBOTH BID [facility] Last Admin: 01/22/17 08:20 Dose: 1 each Polyethylene Glycol (Miralax) 17 gm PO DAILY PRN PRN Reason: Constipation Last Admin: 01/14/17 06:39 Dose: 17 gm Quetiapine Fumarate (Seroquel) 25 mg PO DAILY [facility] Last Admin: 01/22/17 08:24 Dose: 25 mg Saccharomyces Boulardii (Florastor) 250 mg PO BID [facility] Last Admin: 01/22/17 08:24 Dose: 250 mg Senna/Docusate Sodium (Senna Plus) 1 tab PO BID PRN PRN Reason: Constipation Last Admin: 01/19/17 08:58 Dose: 1 tab Simvastatin (Zocor) 20 mg PO BEDTIME [facility] Last Admin: 01/21/17 20:43 Dose: 20 mg Temazepam (Restoril) 7.5 mg PO BEDTIME PRN PRN Reason: Sleep Last Admin: 01/21/17 22:03 Dose: 7.5 mg Discontinued Medications Albuterol/Ipratropium (Duoneb 3.0-0.5 Mg/3 Ml) 3 ml NEB Q4H PRN PRN Reason: Shortness Of Breath/wheezing Bacitracin (Bacitracin Oint) Confirm Administered Dose 15 gm .ROUTE .STK-MED ONE Stop: 01/21/17 14:14 Last Admin: 01/21/17 14:10 Dose: 15 gm Bumetanide (Bumex) 0.5 mg IVPUSH ONETIME ONE Stop: 01/17/17 21:01 Last Admin: 01/17/17 22:13 Dose: 0.5 mg Bumetanide (Bumex) 1 mg IVPUSH ONETIME ONE Stop: 01/18/17 12:06 Last Admin: 01/18/17 13:20 Dose: 1 mg Bumetanide (Bumex) 0.5 mg IVPUSH ONETIME ONE Stop: 01/19/17 07:01 Bumetanide (Bumex) 1 mg IVPUSH ONETIME ONE Stop: 01/19/17 07:01 Last Admin: 01/19/17 06:15 Dose: 1 mg Carbamazepine (Tegretol) 300 mg PO TID [facility] Last Admin: 01/12/17 16:28 Dose: 300 mg Carbamazepine (Tegretol) 200 mg PO TID [facility] Last Admin: 01/12/17 20:09 Dose: 200 mg Carbamazepine (Tegretol Tab) 200 mg PO TID [facility] Last Admin: 01/14/17 08:18 Dose: 200 mg Carbamazepine (Tegretol) 150 mg PO TID [facility] Last Admin: 01/14/17 16:01 Dose: Not Given Carbamazepine (Tegretol) 150 mg PO BID [facility] Last Admin: 01/17/17 08:45 Dose: 150 mg Diazepam (Valium.) 5 mg PO ONETIME ONE Stop: 01/14/17 11:07 Last Admin: 01/14/17 11:27 Dose: 5 mg Diltiazem HCl (Cardizem Cd) 120 mg PO DAILY [facility] Last Admin: 01/18/17 08:19 Dose: 120 mg Diltiazem HCl (Cardizem) 60 mg PO ONETIME ONE Stop: 01/18/17 12:16 Last Admin: 01/18/17 13:20 Dose: 60 mg Diltiazem HCl (Cardizem) 30 mg PO ONETIME ONE Stop: 01/18/17 12:16 Last Admin: 01/18/17 13:20 Dose: 30 mg Diltiazem HCl (Cardizem Cd) 240 mg PO DAILY [facility] Diltiazem HCl (Cardizem Cd) 120 mg PO DAILY [facility] Last Admin: 01/20/17 08:01 Dose: 120 mg Diltiazem HCl (Diltiazem) 10 mg IVPUSH ONETIME ONE Stop: 01/19/17 11:36 Famotidine (Pepcid) 20 mg IVPUSH BID [facility] Stop: 01/16/17 23:59 Last Admin: 01/16/17 20:18 Dose: 20 mg Famotidine (Pepcid) 20 mg IVPUSH DAILY [facility] Last Admin: 01/22/17 08:23 Dose: 20 mg Furosemide (Lasix) 20 mg PO DAILY PRN PRN Reason: Edema Furosemide (Lasix) 20 mg PO ONETIME ONE Stop: 01/17/17 07:31 Last Admin: 01/17/17 08:48 Dose: 20 mg Gabapentin (Neurontin) 100 mg PO DAILY [facility] Last Admin: 01/12/17 09:10 Dose: 100 mg Promethazine HCl 12.5 mg/ (Sodium Chloride) 50.5 mls @ 100 mls/hr IV Q6H PRN PRN Reason: Nausea/Vomiting Magnesium Sulfate 2 gm/ Premix 50 mls @ 25 mls/hr IV ONETIME ONE Stop: 01/13/17 12:59 Last Admin: 01/13/17 12:25 Dose: 25 mls/hr Dextrose/Sodium Chloride (Dextrose 5%-Normal Saline) 1,000 mls @ 75 mls/hr IV ASDIRECTED [facility] Last Admin: 01/17/17 04:53 Dose: 75 mls/hr Magnesium Sulfate 2 gm/ Premix 50 mls @ 25 mls/hr IV ONETIME ONE Stop: 01/15/17 10:59 Last Admin: 01/15/17 09:36 Dose: 25 mls/hr Azithromycin 500 mg/ Sodium (Chloride) 250 mls @ 250 mls/hr IV ONETIME ONE Stop: 01/15/17 20:25 Last Admin: 01/15/17 20:40 Dose: 250 mls/hr Ceftriaxone Sodium 1 gm/ (Sodium Chloride) 100 mls @ 200 mls/hr IV ONETIME ONE Stop: 01/15/17 21:00 Last Admin: 01/15/17 21:52 Dose: 200 mls/hr Ceftriaxone Sodium 1 gm/ (Sodium Chloride) 100 mls @ 200 mls/hr IV Q24H [facility] Last Admin: 01/16/17 19:36 Dose: Not Given Ceftriaxone Sodium 1 gm/ (Sodium Chloride) 100 mls @ 200 mls/hr IV Q24H [facility] Last Admin: 01/17/17 11:11 Dose: 200 mls/hr Azithromycin 500 mg/ Sodium (Chloride) 250 mls @ 250 mls/hr IV Q24H [facility] Last Admin: 01/17/17 10:41 Dose: Not Given Azithromycin 500 mg/ Sodium (Chloride) 250 mls @ 250 mls/hr IV ONETIME ONE Stop: 01/16/17 14:44 Last Admin: 01/16/17 14:20 Dose: 250 mls/hr Metronidazole 500 mg/ Premix 100 mls @ 100 mls/hr IV Q8H [facility] Last Admin: 01/20/17 09:46 Dose: 100 mls/hr Ceftriaxone Sodium 1 gm/ (Dextrose/Water) 100 mls @ 200 mls/hr IV Q24H [facility]HELLE Ceftriaxone Sodium 1 gm/ (Dextrose/Water) 100 mls @ 200 mls/hr IV Q24H [facility] Last Admin: 01/18/17 11:29 Dose: 200 mls/hr Piperacillin Sod/Tazobactam (Sod 4.5 gm/ Dextrose/Water) 100 mls @ 200 mls/hr IV ONETIME ONE Stop: 01/18/17 12:29 Last Admin: 01/18/17 13:21 Dose: 200 mls/hr Piperacillin Sod/Tazobactam (Sod 4.5 gm/ Dextrose/Water) 100 mls @ 25 mls/hr IV Q8H [facility] Stop: 01/20/17 17:00 Last Admin: 01/20/17 11:44 Dose: 25 mls/hr Esmolol HCl (Brevibloc In Ns Premix) 2.5 gm in 250 mls @ 0 mls/hr IV TITRATE MICHELLE; 50 MCG/KG/MIN PRN Reason: Protocol Diltiazem HCl 125 mg/ Sodium (Chloride) 125 mls @ 5 mls/hr IV TITRATE MICHELLE; 5 MG /HR PRN Reason: Protocol Diltiazem HCl 125 mg/ Sodium (Chloride) 125 mls @ 2.5 mls/hr IV TITRATE MICHELLE; 2.5 MG/HR PRN Reason: Protocol Last Titration: 01/20/17 09:29 Dose: 0 mg/hr, 0 mls/hr Ampicillin Sodium/Sulbactam (Sodium 1.5 gm/ Sodium Chloride) 100 mls @ 200 mls/ hr IV Q12H [facility] Last Admin: 01/21/17 08:59 Dose: 200 mls/hr Potassium Chloride 10 meq/ (Premix) 100 mls @ 100 mls/hr IV Q1H [facility] Stop: 01/21/17 12:59 Last Admin: 01/21/17 12:06 Dose: Not Given Potassium Chloride/Dextrose/Sod Cl (D5 Ns With 20 Meq Kcl) 1,000 mls @ 75 mls/ hr IV ASDIRECTED [facility] Last Admin: 01/22/17 00:29 Dose: 75 mls/hr Potassium Chloride 10 meq/ (Premix) 100 mls @ 100 mls/hr IV Q1H [facility] Stop: 01/21/17 11:29 Last Admin: 01/21/17 11:40 Dose: 100 mls/hr Ampicillin Sodium/Sulbactam (Sodium 1.5 gm/ Sodium Chloride) 100 mls @ 200 mls/ hr IV ONETIME ONE Stop: 01/21/17 14:31 Last Admin: 01/21/17 15:40 Dose: 200 mls/hr Lorazepam (Ativan) 0.25 mg IV Q6H PRN PRN Reason: Anxiety Last Admin: 01/17/17 05:53 Dose: 0.25 mg Lorazepam (Ativan) 0.25 mg IV ONETIME ONE Stop: 01/18/17 09:16 Last Admin: 01/18/17 09:29 Dose: 0.25 mg Magnesium Oxide (Magnesium Oxide) 400 mg PO ONETIME ONE Stop: 01/13/17 08:01 Last Admin: 01/13/17 12:13 Dose: Not Given Magnesium Oxide (Magnesium Oxide) 800 mg PO ONETIME ONE Stop: 01/18/17 08:31 Last Admin: 01/18/17 08:24 Dose: 800 mg Magnesium Sulfate (Pharmacy To Dose - Magnesium Replacement) 1 dose .XX ASDIRECTED [facility] Metoprolol Succinate (Toprol Xl) 50 mg PO DAILY [facility] Last Admin: 01/18/17 08:22 Dose: 50 mg Metoprolol Succinate (Toprol Xl) 100 mg PO BID [facility] Last Admin: 01/20/17 20:23 Dose: 100 mg Modafinil (Provigil) 50 mg PO DAILY [facility] Last Admin: 01/15/17 09:26 Dose: 50 mg Modafinil (Provigil) 100 mg PO DAILY [facility] Last Admin: 01/17/17 08:47 Dose: 100 mg Ondansetron HCl (Zofran Odt) 4 mg PO Q6H [facility] Last Admin: 01/21/17 12:07 Dose: Not Given Phenytoin Sodium (Phenytoin) 100 mg PO BID [facility] Last Admin: 01/15/17 20:46 Dose: Not Given Potassium Chloride (Pharmacy To Dose - Potassium Replacement) 1 dose .XX ASDIRECTED [facility] Propofol (Diprivan 20 Ml) Confirm Administered Dose 200 mg .ROUTE .STK-MED ONE Stop: 01/21/17 12:19 Quetiapine Fumarate (Seroquel) 25 mg PO DAILY [facility] Last Admin: 01/15/17 09:26 Dose: 25 mg Quetiapine Fumarate (Seroquel) 25 mg PO ONETIME ONE Stop: 01/18/17 11:05 Last Admin: 01/18/17 11:23 Dose: 25 mg Saccharomyces Boulardii (Florastor) 250 mg PO DAILY [facility] Last Admin: 01/17/17 08:31 Dose: 250 mg - Exam Quality Assessment: Supplemental Oxygen, DVT Prophylaxis General: Alert, Oriented, Cooperative, No Acute Distress HEENT: Pupils Equal, Pupils Reactive, EOMI Neck: Supple, Trachea Midline Lungs: Normal Respiratory Effort Cardiovascular: Regular Rate, Irregular Rhythm GI/Abdominal Exam: Normal Bowel Sounds, Soft, Non-Tender, No Organomegaly, No Distention (Female) Exam: Deferred Back Exam: Normal Inspection Extremities: Normal Inspection Skin: Warm, Dry Wound/Incisions: Dressing Dry and Intact Neurological: No New Focal Deficit Psy/Mental Status: Alert, Normal Affect, Normal Mood - Problem List Review Problem List Initiated/Reviewed/Updated: Yes - My Orders Last 24 Hours: My Active Orders 01/21/17 16:00 Levalbuterol HCl [Xopenex] 1.25 mg INH QIDRT 01/21/17 21:00 Insulin Aspart [NovoLOG] See Protocol SUBCUT Piperacillin/Tazobactam [Zosyn] 4.5 gm Dextrose 5% in Water 100 ml IV Q8H 01/22/17 08:00 Communication Order [RC] 08,12,16,20,00 01/22/17 09:25 Patient Status [ADT] Routine 01/22/17 10:40 COMPREHENSIVE METABOLIC PN,CMP [CHEM] Routine CRP [C-REACTIVE PROTEIN] [CHEM] Routine MAGNESIUM [CHEM] Routine 01/23/17 09:00 Famotidine [Pepcid] 20 mg GTUBE DAILY - Plan Plan:: Assessment/Plan: Acute: AMS/Delirium with hallucinations but less agitation/anxiety - She is on high dose anticonvulsant medications [employer]: Gabapentin, Phenytoin and Carbamazepine-- has been trimmed to only carbamazepine 200mg BID; stable and without any evidence of seizure - Hx of seizure disorder s/p hemorrhagic stroke in the past - She does not follow a Neurologist - IRB COMPLIANCE COORDINATOR cont to follow - Seroquel scheduled daily and Ativan PRN for restlessness - Has been off of 1:1 care since yesterday afternoon, continue [place] [facility] [place] Pneumonia, Possibly Improving - She has been altered with fluctuating level of alertness (delirium) - CXR shows right side pneumonia with small pleural effusion - Continue IV abx; consulted with pharmacy- now recommends unasyn; Continue florastor - Supplemental O2, Routine RT care and Bronchodilators - Sputum Cx/Sx--unable to obtain as patient does not understand/unable to follow instructions; as has been on abx tx for days now will cxl orders - WBC is now normal but CRP continues to go up - Cont IRB COMPLIANCE COORDINATOR evaluation ongoing daily Small Left Side Pleural Effusion, Stable - New abnormal finding on CXR - IS as directed- if able to cooperate - Aspiration precaution - Serial CXR as needed; will repeat CXR in AM - BNP elevated, diurese as needed. 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 Schmidt, Neurosurgeon: recommend CT scan in 2 weeks then follow up in the office - Continue Neuro check Q shift - Continue to Hold Warfarin and ASA - Follow up MRI: essentially the same from previous study; no acute new abnormal findings - Follow up head CT done today with stable findings with areas of micro bleeding within prior noted areas of density/subdural bleeds. - Reviewed with Dr. Ranada, will not resume anticoagulant on discharge based on these findings. Generalized Weakness, Unchanged - Likely 2/2 above and poor intake - Continue PT/OT - Thyroid panel: normal - Vit D level: low, started supplement as below - We offered [facility] for stroke rehab and her family was receptive Vitamin D-Deficiency, New - Vit D level 21 (low) - Continue Vit D supplement Subtherapeutic INR, Unchanged---Holding warfarin due to continued areas of micro bleeding on head CT - Last INR 1.18 - Continue to hold off Warfarin/ASA due to brain bleed - Recommend switching to DOACs (defer to PCP after discharge) Right Shoulder Pain, New - S/p Fall - Tender with palpation and pain with active movement - XR with 3 views to r/o acute fracture is negative - PRN pain medication; PT/OT Poor Nutritional Status - She is able to swallow/eat and drink but not meeting her nutritional requirement - She is breaking muscle down at this point and not able to do PT/OT - POD 1: PEG tube placement, TF started and tolerated. Resolved: S/P Fall at [facility] - High Fall Risk - Polypharmacy - Fall precautions in place Chronic: Impaired Vision HTN- stable, 120-130's/80-90's HLD- will check lipid panel Atrial Fibrillation via Holter Monitor ---afib with RVR not responding to tx; will transfer patient to ICU for further treatment and closer monitoring. Mitral Valve Insufficiency GERD- GI prophylax OA/DJD Osteoporosis Hypothyroidism- stable Trigerminal Neuralgia, Continue Carbamezapin Inflammatory Spondylopathy Hx/o DVT/TIA Hx/o Brain Bleed Hx/o seizure s/p hemorrhagic stroke Anxiety Plan: Routine AM Labs Continue Neuro check Q4, IRB COMPLIANCE COORDINATOR and PT/OT DVT PPx: SCDs GI prophylaxis: H2B IV BID Advance Aspiration/Fall/Seizure Precautions Additional orders as above CM/SW for d/c planning- [facility] with PEG Tube for short tem use until her nutritional requirement is met Code Status: DNR/DNI Prognosis remains guarded-poor. LOS > 96 hours due to slow response to treatment; placement to [facility] for rehab likely next week.
[2017-01-22] MEDS: Simvastatin 20 MG Tab PO SCH (20:11)
[2017-01-23] MEDS: Diltiazem IR 60 MG Tab PO SCH ×3 (01:07→12:01)
[2017-01-23] MEDS: LORazepam 2 MG/ML MDV IVPUSH PRN (01:07)
[2017-01-23] MEDS: Piperacillin/Tazobactam 4.5 GM in Dextrose 5% in Water 100 ML IV SCH ×6 (05:48→21:54)
[2017-01-23] MEDS: Levothyroxine 88 MCG Tab PO SCH (05:49)
[2017-01-23] MEDS: Levalbuterol HCl 1.25 MG/3 ML Neb INH SCH ×2 (06:10→10:09)
[2017-01-23] MEDS: Metoprolol Tartrate 5 MG/5 ML SDV IVPUSH PRN (06:37)
[2017-01-23] MEDS: Saccharomyces Boulardii (Probiotic) 250 MG Cap PO SCH ×2 (08:21→21:54)
[2017-01-23] MEDS: CYCLOSPORINE EYEBOTH SCH ×2 (08:22→21:55)
[2017-01-23] MEDS: carBAMazepine 200 MG Tab PO SCH ×2 (08:23→21:54)
[2017-01-23] MEDS: Famotidine 20 MG Tab GTUBE SCH (08:24)
[2017-01-23] MEDS: Cholecalciferol (Vitamin D3) 1,000 Unit Tab PO SCH (08:24)
[2017-01-23] MEDS: QUEtiapine 25 MG Tab PO SCH (08:24)
[2017-01-23] MEDS: Insulin Aspart 100 Units/ML 3 ML Pen SUBCUT SCH ×2 (08:25→22:19)
[2017-01-23] MEDS ORDERED: Metoprolol Succinate 25 MG Tab.ER PO ONE (09:30)
--- NOTE | 2017-01-23 09:44 | PCM.PN ---
- General Info Date of Service: 01/23/17 Functional Status: Reports: Tolerating Diet - Review of Systems General: Reports: No Symptoms HEENT: Reports: No Symptoms Pulmonary: Reports: No Symptoms Cardiovascular: Reports: No Symptoms Gastrointestinal: Reports: No Symptoms Genitourinary: Reports: No Symptoms Musculoskeletal: Reports: No Symptoms Skin: Reports: No Symptoms Neurological: Reports: No Symptoms Psychiatric: Reports: No Symptoms - Patient Data Vitals - Most Recent: Last Vital Signs Temp 36.9 C 01/23/17 07:59 Pulse 110 H 01/23/17 09:30 Resp 20 01/23/17 07:59 BP 104/62 01/23/17 09:30 Pulse Ox 98 01/23/17 08:07 Weight - Most Recent: 63.004 kg I&O - Last 24 Hours: Intake & Output 01/22/17 01/23/17 01/23/17 23:59 06:59 14:59 Intake Total Balance Lab Results Last 24 Hours: Laboratory Results - last 24 hr 01/22/17 01/22/17 01/22/17 Range/Units 10:40 10:40 20:09 WBC 8.06 (3.98-10.04) K/mm3 RBC 4.11 (3.98-5.22) M/mm3 Hgb 12.2 (11.2-15.7) gm/L Hct 37.6 (34.1-44.9) % MCV 91.5 (79.4-94.8) fl MCH 29.7 (25.6-32.2) pg MCHC 32.4 (32.2-35.5) g/dl RDW Std Deviation 47.3 H (36.4-46.3) fL Plt Count 243 (182-369) K/mm3 MPV 9.6 (9.4-12.3) fl Neut % (Auto) 66.8 (34.0-71.1) % Lymph % (Auto) 12.5 L (19.3-51.7) % [place] % (Auto) 13.2 H (4.7-12.5) % Eos % (Auto) 6.7 H (0.7-5.8) Baso % (Auto) 0.4 (0.1-1.2) % Neut # (Auto) 5.39 (1.56-6.13) K/mm3 Lymph # (Auto) 1.01 L (1.18-3.74) K/mm3 [place] # (Auto) 1.06 H (0.24-0.36) K/mm3 Eos # (Auto) 0.54 H (0.04-0.36) K/mm3 Baso # (Auto) 0.03 (0.01-0.08) K/mm3 Manual Slide Review Sodium 143 (136-145) mEq/L Potassium 3.6 (3.5-5.1) mEq/L Chloride 107 (98-107) mEq/L Carbon Dioxide 26 (21-32) mEq/L Anion Gap 13.6 (5-15) BUN 13 (7-18) mg/dL Creatinine 0.9 (0.55-1.02) mg/dL Est Cr Clr Drug Dosing 37.12 mL/min Estimated GFR (MDRD) 59 (>60) mL/min BUN/Creatinine Ratio 14.4 (14-18) Glucose 170 H (83-115) mg/dL POC Glucose 157 H (83-110) mg/dL Calcium 8.6 (8.5-10.1) mg/dL Magnesium 1.6 L (1.8-2.4) mg/dl Total Bilirubin 0.7 (0.2-1.0) mg/dL AST 18 (15-37) U/L ALT 16 (14-59) U/L Alkaline Phosphatase 80 (46-116) U/L C-Reactive Protein 12.9 H* (<1.0) mg/dL Total Protein 5.9 L (6.4-8.2) g/dl Albumin 2.3 L (3.4-5.0) g/dl Globulin 3.6 gm/dL Albumin/Globulin Ratio 0.6 L (1-2) 01/23/17 01/23/17 01/23/17 Range/Units 05:50 05:50 06:47 WBC 8.52 (3.98-10.04) K/mm3 RBC 4.01 (3.98-5.22) M/mm3 Hgb 12.0 (11.2-15.7) gm/L Hct 36.6 (34.1-44.9) % MCV 91.3 (79.4-94.8) fl MCH 29.9 (25.6-32.2) pg MCHC 32.8 (32.2-35.5) g/dl RDW Std Deviation 47.8 H (36.4-46.3) fL Plt Count 238 (182-369) K/mm3 MPV 9.7 (9.4-12.3) fl Neut % (Auto) 57.1 (34.0-71.1) % Lymph % (Auto) 18.7 L (19.3-51.7) % [place] % (Auto) 16.0 H (4.7-12.5) % Eos % (Auto) 7.5 H (0.7-5.8) Baso % (Auto) 0.5 (0.1-1.2) % Neut # (Auto) 4.87 (1.56-6.13) K/mm3 Lymph # (Auto) 1.59 (1.18-3.74) K/mm3 [place] # (Auto) 1.36 H (0.24-0.36) K/mm3 Eos # (Auto) 0.64 H (0.04-0.36) K/mm3 Baso # (Auto) 0.04 (0.01-0.08) K/mm3 Manual Slide Review Normal smear Sodium 143 (136-145) mEq/L Potassium 3.6 (3.5-5.1) mEq/L Chloride 108 H (98-107) mEq/L Carbon Dioxide 27 (21-32) mEq/L Anion Gap 11.6 (5-15) BUN 13 (7-18) mg/dL Creatinine 1.0 (0.55-1.02) mg/dL Est Cr Clr Drug Dosing 33.41 mL/min Estimated GFR (MDRD) 53 (>60) mL/min BUN/Creatinine Ratio 13.0 L (14-18) Glucose 92 (83-115) mg/dL POC Glucose 72 L (83-110) mg/dL Calcium 8.5 (8.5-10.1) mg/dL Magnesium 1.7 L (1.8-2.4) mg/dl Total Bilirubin (0.2-1.0) mg/dL AST (15-37) U/L ALT (14-59) U/L Alkaline Phosphatase (46-116) U/L C-Reactive Protein 8.3 H* (<1.0) mg/dL Total Protein (6.4-8.2) g/dl Albumin (3.4-5.0) g/dl Globulin gm/dL Albumin/Globulin Ratio (1-2) Boy Results Last 24 Hours: Microbiology 01/15/17 20:20 Aerobic Blood Culture - Final Blood NO GROWTH AFTER 7 DAYS Anaerobic Blood Culture - Final NO GROWTH AFTER 7 DAYS 01/15/17 20:30 Aerobic Blood Culture - Final Blood NO GROWTH AFTER 7 DAYS Anaerobic Blood Culture - Final NO GROWTH AFTER 7 DAYS Med Orders - Current: Current Medications Acetaminophen (Tylenol) 650 mg PO Q4H PRN PRN Reason: Pain (Mild 1-3)/fever Last Admin: 01/21/17 15:31 Dose: 650 mg Acetaminophen (Tylenol) 650 mg RECTAL Q4H PRN PRN Reason: Pain/Fever Hydrocodone Bitart/Acetaminophen ([place] 325-5 Mg) 1 tab PO Q4H PRN PRN Reason: Pain (moderate 4-6) Bisacodyl (Dulcolax) 5 mg PO DAILY PRN PRN Reason: Constipation Last Admin: 01/19/17 04:58 Dose: 5 mg Bisacodyl (Dulcolax) 10 mg RECTAL DAILY PRN PRN Reason: Constipation Last Admin: 01/15/17 06:31 Dose: 10 mg Carbamazepine (Tegretol Tab) 200 mg PO BID [facility] Last Admin: 01/23/17 08:23 Dose: 200 mg Cholecalciferol (Vitamin D3) 2,000 units PO DAILY [facility] Last Admin: 01/23/17 08:24 Dose: 2,000 units Diltiazem HCl (Cardizem) 60 mg PO Q6HR [facility] Last Admin: 01/23/17 05:49 Dose: 60 mg Docusate Sodium (Colace) 100 mg PO BID PRN PRN Reason: Constipation Famotidine (Pepcid) 20 mg GTUBE DAILY [facility] [place] Last Admin: 01/23/17 08:24 Dose: 20 mg Hydralazine HCl (Apresoline) 10 mg IVPUSH Q4H PRN PRN Reason: Hypertension Hydromorphone HCl (Dilaudid) 0.25 mg IVPUSH Q2H PRN PRN Reason: Pain (severe 7-10) Last Admin: 01/18/17 19:12 Dose: 0.25 mg Piperacillin Sod/Tazobactam (Sod 4.5 gm/ Dextrose/Water) 100 mls @ 25 mls/hr IV Q8H [facility] [place] Last Admin: 01/23/17 05:48 Dose: 25 mls/hr Insulin Aspart (Novolog) 0 unit SUBCUT [facility] PRN Reason: Protocol Last Admin: 01/23/17 08:25 Dose: Not Given Levalbuterol HCl (Xopenex) 1.25 mg INH QIDRT [facility] Last Admin: 01/23/17 06:10 Dose: 1.25 mg Levothyroxine Sodium (Synthroid) 88 mcg PO ACBRK [facility] Last Admin: 01/23/17 05:49 Dose: 88 mcg Lisinopril (Prinivil) 10 mg PO BID [facility] Lorazepam (Ativan) 2 mg IVPUSH Q4H PRN PRN Reason: Seizures Lorazepam (Ativan) 0.25 mg IVPUSH Q6H PRN PRN Reason: Anxiety Last Admin: 01/23/17 01:07 MDT Dose: 0.25 mg Metoprolol Succinate (Toprol Xl) 50 mg PO BID [facility] [place] Last Admin: 01/22/17 20:12 Dose: 50 mg Metoprolol Tartrate (Lopressor) 5 mg IVPUSH Q4H PRN PRN Reason: Tachycardia Last Admin: 01/23/17 06:37 Dose: 5 mg Ondansetron HCl (Zofran) 4 mg IV Q6H PRN PRN Reason: Nausea/Vomiting Last Admin: 01/14/17 09:42 Dose: 4 mg Cyclosporine ( Restasis) Ophth Solution 0 each EYEBOTH BID [facility] [place] Last Admin: 01/23/17 08:22 Dose: 1 each [Systane 0.3-0.4% Eye Drops] 1 D Own Med 0 each EYEBOTH BID [facility] [place] Last Admin: 01/23/17 08:22 Dose: 1 each Polyethylene Glycol (Miralax) 17 gm PO DAILY PRN PRN Reason: Constipation Last Admin: 01/14/17 06:39 Dose: 17 gm Quetiapine Fumarate (Seroquel) 25 mg PO DAILY [facility] [place] Last Admin: 01/23/17 08:24 Dose: 25 mg Saccharomyces Boulardii (Florastor) 250 mg PO BID [facility] [place] Last Admin: 01/23/17 08:21 Dose: 250 mg Senna/Docusate Sodium (Senna Plus) 1 tab PO BID PRN PRN Reason: Constipation Last Admin: 01/19/17 08:58 Dose: 1 tab Simvastatin (Zocor) 20 mg PO BEDTIME [facility] [place] Last Admin: 01/22/17 20:11 Dose: 20 mg Temazepam (Restoril) 7.5 mg PO BEDTIME PRN PRN Reason: Sleep Last Admin: 01/21/17 22:03 Dose: 7.5 mg Discontinued Medications Albuterol/Ipratropium (Duoneb 3.0-0.5 Mg/3 Ml) 3 ml NEB Q4H PRN PRN Reason: Shortness Of Breath/wheezing Bacitracin (Bacitracin Oint) Confirm Administered Dose 15 gm .ROUTE .STK-MED ONE Stop: 01/21/17 14:14 Last Admin: 01/21/17 14:10 Dose: 15 gm Bumetanide (Bumex) 0.5 mg IVPUSH ONETIME ONE Stop: 01/17/17 21:01 Last Admin: 01/17/17 22:13 Dose: 0.5 mg Bumetanide (Bumex) 1 mg IVPUSH ONETIME ONE Stop: 01/18/17 12:06 Last Admin: 01/18/17 13:20 Dose: 1 mg Bumetanide (Bumex) 0.5 mg IVPUSH ONETIME ONE Stop: 01/19/17 07:01 Bumetanide (Bumex) 1 mg IVPUSH ONETIME ONE Stop: 01/19/17 07:01 Last Admin: 01/19/17 06:15 Dose: 1 mg Carbamazepine (Tegretol) 300 mg PO TID [facility] [place] Last Admin: 01/12/17 16:28 Dose: 300 mg Carbamazepine (Tegretol) 200 mg PO TID [facility] [place] Last Admin: 01/12/17 20:09 Dose: 200 mg Carbamazepine (Tegretol Tab) 200 mg PO TID [facility] [place] Last Admin: 01/14/17 08:18 Dose: 200 mg Carbamazepine (Tegretol) 150 mg PO TID [facility] [place] Last Admin: 01/14/17 16:01 Dose: Not Given Carbamazepine (Tegretol) 150 mg PO BID [facility] [place] Last Admin: 01/17/17 08:45 Dose: 150 mg Diazepam (Valium.) 5 mg PO ONETIME ONE Stop: 01/14/17 11:07 Last Admin: 01/14/17 11:27 Dose: 5 mg Diltiazem HCl (Cardizem Cd) 120 mg PO DAILY [facility] [place] Last Admin: 01/18/17 08:19 Dose: 120 mg Diltiazem HCl (Cardizem) 60 mg PO ONETIME ONE Stop: 01/18/17 12:16 Last Admin: 01/18/17 13:20 Dose: 60 mg Diltiazem HCl (Cardizem) 30 mg PO ONETIME ONE Stop: 01/18/17 12:16 Last Admin: 01/18/17 13:20 Dose: 30 mg Diltiazem HCl (Cardizem Cd) 240 mg PO DAILY [facility] [place] Diltiazem HCl (Cardizem Cd) 120 mg PO DAILY [facility] [place] Last Admin: 01/20/17 08:01 Dose: 120 mg Diltiazem HCl (Diltiazem) 10 mg IVPUSH ONETIME ONE Stop: 01/19/17 11:36 Famotidine (Pepcid) 20 mg IVPUSH BID [facility] [place] Stop: 01/16/17 23:59 Last Admin: 01/16/17 20:18 Dose: 20 mg Famotidine (Pepcid) 20 mg IVPUSH DAILY [facility] [place] Last Admin: 01/22/17 08:23 Dose: 20 mg Furosemide (Lasix) 20 mg PO DAILY PRN PRN Reason: Edema Furosemide (Lasix) 20 mg PO ONETIME ONE Stop: 01/17/17 07:31 Last Admin: 01/17/17 08:48 Dose: 20 mg Gabapentin (Neurontin) 100 mg PO DAILY [facility] [place] Last Admin: 01/12/17 09:10 Dose: 100 mg Promethazine HCl 12.5 mg/ (Sodium Chloride) 50.5 mls @ 100 mls/hr IV Q6H PRN PRN Reason: Nausea/Vomiting Magnesium Sulfate 2 gm/ Premix 50 mls @ 25 mls/hr IV ONETIME ONE Stop: 01/13/17 12:59 Last Admin: 01/13/17 12:25 Dose: 25 mls/hr Dextrose/Sodium Chloride (Dextrose 5%-Normal Saline) 1,000 mls @ 75 mls/hr IV ASDIRECTED [facility] Last Admin: 01/17/17 04:53 Dose: 75 mls/hr Magnesium Sulfate 2 gm/ Premix 50 mls @ 25 mls/hr IV ONETIME ONE Stop: 01/15/17 10:59 Last Admin: 01/15/17 09:36 Dose: 25 mls/hr Azithromycin 500 mg/ Sodium (Chloride) 250 mls @ 250 mls/hr IV ONETIME ONE Stop: 01/15/17 20:25 Last Admin: 01/15/17 20:40 Dose: 250 mls/hr Ceftriaxone Sodium 1 gm/ (Sodium Chloride) 100 mls @ 200 mls/hr IV ONETIME ONE Stop: 01/15/17 21:00 Last Admin: 01/15/17 21:52 Dose: 200 mls/hr Ceftriaxone Sodium 1 gm/ (Sodium Chloride) 100 mls @ 200 mls/hr IV Q24H [facility] [place] Last Admin: 01/16/17 19:36 Dose: Not Given Ceftriaxone Sodium 1 gm/ (Sodium Chloride) 100 mls @ 200 mls/hr IV Q24H [facility] [place] Last Admin: 01/17/17 11:11 Dose: 200 mls/hr Azithromycin 500 mg/ Sodium (Chloride) 250 mls @ 250 mls/hr IV Q24H [facility] Last Admin: 01/17/17 10:41 Dose: Not Given Azithromycin 500 mg/ Sodium (Chloride) 250 mls @ 250 mls/hr IV ONETIME ONE Stop: 01/16/17 14:44 Last Admin: 01/16/17 14:20 Dose: 250 mls/hr Metronidazole 500 mg/ Premix 100 mls @ 100 mls/hr IV Q8H [facility] [place] Last Admin: 01/20/17 09:46 Dose: 100 mls/hr Ceftriaxone Sodium 1 gm/ (Dextrose/Water) 100 mls @ 200 mls/hr IV Q24H [facility] Ceftriaxone Sodium 1 gm/ (Dextrose/Water) 100 mls @ 200 mls/hr IV Q24H [facility] [place] Last Admin: 01/18/17 11:29 Dose: 200 mls/hr Piperacillin Sod/Tazobactam (Sod 4.5 gm/ Dextrose/Water) 100 mls @ 200 mls/hr IV ONETIME ONE Stop: 01/18/17 12:29 Last Admin: 01/18/17 13:21 Dose: 200 mls/hr Piperacillin Sod/Tazobactam (Sod 4.5 gm/ Dextrose/Water) 100 mls @ 25 mls/hr IV Q8H [facility] [place] Stop: 01/20/17 17:00 Last Admin: 01/20/17 11:44 Dose: 25 mls/hr Esmolol HCl (Brevibloc In Ns Premix) 2.5 gm in 250 mls @ 0 mls/hr IV TITRATE MICHELLE; 50 MCG/KG/MIN PRN Reason: Protocol Diltiazem HCl 125 mg/ Sodium (Chloride) 125 mls @ 5 mls/hr IV TITRATE MICHELLE; 5 MG /HR PRN Reason: Protocol Diltiazem HCl 125 mg/ Sodium (Chloride) 125 mls @ 2.5 mls/hr IV TITRATE MICHELLE; 2.5 MG/HR PRN Reason: Protocol Last Titration: 01/20/17 09:29 Dose: 0 mg/hr, 0 mls/hr Ampicillin Sodium/Sulbactam (Sodium 1.5 gm/ Sodium Chloride) 100 mls @ 200 mls/ hr IV Q12H [facility] Last Admin: 01/21/17 08:59 Dose: 200 mls/hr Potassium Chloride 10 meq/ (Premix) 100 mls @ 100 mls/hr IV Q1H [facility] Stop: 01/21/17 12:59 Last Admin: 01/21/17 12:06 Dose: Not Given Potassium Chloride/Dextrose/Sod Cl (D5 Ns With 20 Meq Kcl) 1,000 mls @ 75 mls/ hr IV ASDIRECTED MICHELLE Last Admin: 01/22/17 00:29 Dose: 75 mls/hr Potassium Chloride 10 meq/ (Premix) 100 mls @ 100 mls/hr IV Q1H [facility] Stop: 01/21/17 11:29 Last Admin: 01/21/17 11:40 Dose: 100 mls/hr Ampicillin Sodium/Sulbactam (Sodium 1.5 gm/ Sodium Chloride) 100 mls @ 200 mls/ hr IV ONETIME ONE Stop: 01/21/17 14:31 Last Admin: 01/21/17 15:40 Dose: 200 mls/hr Lisinopril (Prinivil) 20 mg PO DAILY [facility] Last Admin: 01/22/17 08:24 Dose: 20 mg Lisinopril (Prinivil) 10 mg PO DAILY [facility] [place] Lorazepam (Ativan) 0.25 mg IV Q6H PRN PRN Reason: Anxiety Last Admin: 01/17/17 05:53 Dose: 0.25 mg Lorazepam (Ativan) 0.25 mg IV ONETIME ONE Stop: 01/18/17 09:16 Last Admin: 01/18/17 09:29 Dose: 0.25 mg Magnesium Oxide (Magnesium Oxide) 400 mg PO ONETIME ONE Stop: 01/13/17 08:01 Last Admin: 01/13/17 12:13 Dose: Not Given Magnesium Oxide (Magnesium Oxide) 800 mg PO ONETIME ONE Stop: 01/18/17 08:31 Last Admin: 01/18/17 08:24 Dose: 800 mg Magnesium Sulfate (Pharmacy To Dose - Magnesium Replacement) 1 dose .XX ASDIRECTED [facility] [place] Metoprolol Succinate (Toprol Xl) 50 mg PO DAILY [facility] [place] Last Admin: 01/18/17 08:22 Dose: 50 mg Metoprolol Succinate (Toprol Xl) 100 mg PO BID [facility] [place] Last Admin: 01/20/17 20:23 Dose: 100 mg Metoprolol Succinate (Toprol Xl) 25 mg PO ONETIME ONE Stop: 01/23/17 09:31 Last Admin: 01/23/17 09:30 Dose: 25 mg Modafinil (Provigil) 50 mg PO DAILY [facility] [place] Last Admin: 01/15/17 09:26 Dose: 50 mg Modafinil (Provigil) 100 mg PO DAILY [facility] [place] Last Admin: 01/17/17 08:47 Dose: 100 mg Ondansetron HCl (Zofran Odt) 4 mg PO Q6H [facility] [place] Last Admin: 01/21/17 12:07 Dose: Not Given Phenytoin Sodium (Phenytoin) 100 mg PO BID [facility] [place] Last Admin: 01/15/17 20:46 Dose: Not Given Potassium Chloride (Pharmacy To Dose - Potassium Replacement) 1 dose .XX ASDIRECTED [facility] [place] Propofol (Diprivan 20 Ml) Confirm Administered Dose 200 mg .ROUTE .STK-MED ONE Stop: 01/21/17 12:19 Quetiapine Fumarate (Seroquel) 25 mg PO DAILY [facility] [place] Last Admin: 01/15/17 09:26 Dose: 25 mg Quetiapine Fumarate (Seroquel) 25 mg PO ONETIME ONE Stop: 01/18/17 11:05 Last Admin: 01/18/17 11:23 Dose: 25 mg Saccharomyces Boulardii (Florastor) 250 mg PO DAILY [facility] [place] Last Admin: 01/17/17 08:31 Dose: 250 mg - Exam Quality Assessment: DVT Prophylaxis General: Alert, Oriented, Cooperative HEENT: Pupils Equal, Pupils Reactive, EOMI Neck: Supple, Trachea Midline, No JVD Lungs: Normal Respiratory Effort, Decreased Breath Sounds Cardiovascular: Regular Rate, Irregular Rhythm GI/Abdominal Exam: Normal Bowel Sounds, Soft, Non-Tender, No Organomegaly, No Distention (Female) Exam: Deferred Back Exam: Normal Inspection Extremities: Normal Inspection Skin: Warm Neurological: No New Focal Deficit Psy/Mental Status: Alert, Normal Affect, Normal Mood - Problem List Review Problem List Initiated/Reviewed/Updated: Yes - My Orders Last 24 Hours: My Active Orders 01/23/17 09:00 Famotidine [Pepcid] 20 mg GTUBE DAILY 01/23/17 21:00 Lisinopril [Prinivil] 10 mg PO BID - Plan Plan:: Assessment/Plan: Acute: AMS/Delirium with hallucinations but less agitation/anxiety - She is on high dose anticonvulsant medications HAT FORMER: Gabapentin, Phenytoin and Carbamazepine-- has been trimmed to only carbamazepine 200mg BID; stable and without any evidence of seizure - Hx of seizure disorder s/p hemorrhagic stroke in the past - She does not follow a Neurologist - [employer] cont to follow - Seroquel scheduled daily and Ativan PRN for restlessness - Has been off of 1:1 care since yesterday afternoon, continue after transfer to [facility] Aspiration Pneumonia, Possibly Improving - She has been altered with fluctuating level of alertness (delirium) - CXR shows right side pneumonia with small pleural effusion - Continue IV abx; consulted with pharmacy- now recommends unasyn; Continue florastor - Supplemental O2, Routine RT care and Bronchodilators - Sputum Cx/Sx--unable to obtain as patient does not understand/unable to follow instructions; as has been on abx tx for days now will cxl orders - WBC is now normal but CRP continues to go up - Cont [employer] evaluation ongoing daily Small Left Side Pleural Effusion, Stable - New abnormal finding on CXR - IS as directed- if able to cooperate - Aspiration precaution - Serial CXR as needed; will repeat CXR in AM - BNP elevated, diurese as needed. 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 Schmidt, Neurosurgeon: recommend CT scan in 2 weeks then follow up in the office - Continue Neuro check Q shift - Continue to Hold Warfarin and ASA - Follow up MRI: essentially the same from previous study; no acute new abnormal findings - Follow up head CT done today with stable findings with areas of micro bleeding within prior noted areas of density/subdural bleeds. - Reviewed with Dr. Nesbitt, will not resume anticoagulant on discharge based on these findings. Generalized Weakness, Unchanged - Likely 2/2 above and poor intake - Continue PT/OT - Thyroid panel: normal - Vit D level: low, started supplement as below - We offered Vibra for stroke rehab and her family was receptive Vitamin D-Deficiency, New - Vit D level 21 (low) - Continue Vit D supplement Subtherapeutic INR, Unchanged---Holding warfarin due to continued areas of micro bleeding on head CT - Last INR 1.18 - Continue to hold off Warfarin/ASA due to brain bleed - Recommend switching to DOACs (defer to PCP after discharge) Right Shoulder Pain, New - S/p Fall - Tender with palpation and pain with active movement - XR with 3 views to r/o acute fracture is negative - PRN pain medication; PT/OT Poor Nutritional Status - She is able to swallow/eat and drink but not meeting her nutritional requirement - She is breaking muscle down at this point and not able to do PT/OT - POD 1: PEG tube placement, TF started and tolerated. Resolved: S/P Fall at [facility] - High Fall Risk - Polypharmacy - Fall precautions in place Chronic: Impaired Vision HTN- stable, 120-130's/80-90's HLD- will check lipid panel Atrial Fibrillation via Holter Monitor ---afib with RVR not responding to tx; will transfer patient to ICU for further treatment and closer monitoring. Mitral Valve Insufficiency GERD- GI prophylax OA/DJD Osteoporosis Hypothyroidism- stable Trigerminal Neuralgia, Continue Carbamezapin Inflammatory Spondylopathy Hx/o DVT/TIA Hx/o Brain Bleed Hx/o seizure s/p hemorrhagic stroke Anxiety Plan: Changed BB to short acting, did not take oral meds well today. Routine AM Labs Continue Neuro check Q4, [employer] and PT/OT DVT PPx: SCDs GI prophylaxis: H2B IV BID Advance Aspiration/Fall/Seizure Precautions Additional orders as above CM/SW for d/c planning- Vibra with PEG Tube for short tem use until her nutritional requirement is met Code Status: DNR/DNI Prognosis remains guarded-poor. LOS > 96 hours due to slow response to treatment; placement to [facility] for rehab likely next week.
[2017-01-23] MEDS ORDERED: Magnesium Sulfate/Water 2 GM in Premix Bag 1 BAG IV ONE (09:46)
[2017-01-23] MEDS: Metoprolol Succinate 50 MG Tab.ER PO SCH (10:58)
[2017-01-23] MEDS: Lisinopril 20 MG Tab PO SCH (11:05)
[2017-01-23] MEDS: Metoprolol Tartrate 50 MG Tab PO SCH ×2 (14:09→23:59)
[2017-01-23] MEDS ORDERED: Furosemide 20 MG/2 ML VIAL IVPUSH ONE (14:47)
[2017-01-23] MEDS: Diltiazem IR 30 MG Tab PO SCH (18:23)
[2017-01-23] MEDS ORDERED: Lisinopril 10 MG Tab PO SCH (21:00)
[2017-01-23] MEDS: Simvastatin 20 MG Tab PO SCH (21:54)
[2017-01-23] MEDS: Lisinopril 10 MG Tab PO SCH (21:55)
[2017-01-23] MEDS: Acetaminophen 325 MG Tab PO PRN (21:56)
[2017-01-24] MEDS: Diltiazem IR 30 MG Tab PO SCH ×4 (00:07→18:58)
[2017-01-24] MEDS: Temazepam 7.5 MG Cap PO PRN (02:39)
[2017-01-24] MEDS: Metoprolol Tartrate 50 MG Tab PO SCH ×3 (06:58→21:36)
[2017-01-24] MEDS: Levothyroxine 88 MCG Tab PO SCH (06:58)
[2017-01-24] MEDS: Piperacillin/Tazobactam 4.5 GM in Dextrose 5% in Water 100 ML IV SCH ×6 (06:59→21:40)
--- NOTE | 2017-01-24 07:21 | OR ---
DATE OF OPERATION: 01/21/2017 SURGEON: Den Gallagher MD PREOPERATIVE DIAGNOSIS: Dysphagia, secondary to stroke. POSTOPERATIVE DIAGNOSIS: Dysphagia, secondary to stroke. OPERATIVE PROCEDURE: Placement of PEG tube, done under local anesthetic and IV sedation. DESCRIPTION OF PROCEDURE: The patient was taken to the operating room, placed in a supine position, connected to monitoring equipment, given IV sedation, and given antibiotics. She was placed in the semi-upright position supine, and a bite block was inserted, and video Olympus gastroscope placed in the posterior oropharynx under direct vision and threaded past the cricopharyngeus down the esophagus into the stomach. Stomach was insufflated, and the light transilluminated easily through the abdominal wall. The patient was placed more in a supine position and by indentation point and transillumination, a point was picked on the left upper quadrant for the site of the PEG tube. This area was prepped with Betadine, anesthetized with 1% Xylocaine, and a needle with the sheath was then inserted into the stomach. The needle was removed, sheath remained in and through the sheath, a wire was inserted. This was grasped with a snare and brought out through the abdominal wall. This was then attached to a 20-[place] PEG tube and was well lubricated with bacitracin ointment and then this was pulled back through the mouth, down the esophagus, into the stomach where it was brought out through the incision where the needle was placed. This was enlarged with a knife to accommodate the PEG tube, and the retaining ring was then placed on this, and the retaining ring was sutured to the skin with 4-0 Prolene suture. The scope was then re-inserted showing good position and no excessive tension on blanching of the mucosa of the stomach. The ring around the PEG tube was then secured with a 2-0 silk. The area was then dressed with bacitracin ointment and gauze dressings to occlude the PEG tube to keep her from pulling. The patient tolerated the procedure and was sent to recovery room in a stable condition. ANESTHESIA: ESTIMATED BLOOD LOSS: MMODAL /[id number]
--- NOTE | 2017-01-24 07:25 | OR ---
DATE OF OPERATION: SURGEON: Den Gallagher MD ADDENDUM ESTIMATED BLOOD LOSS: 0 mL. MMODAL /[id number]
--- NOTE | 2017-01-24 07:38 | CT ---
Head CT Technique: Multiple axial sections through the brain were obtained. Intravenous contrast was not utilized. Comparison: Prior head CT study of 01/18/17. Findings: Stable subdural hematomas are identified within the left temporoparietal region and within the posterior right parietal region. Minimal subdural hematoma is seen within the left frontal region which is thought to be present on prior study in retrospect and stable. Previous subdural hematoma along the cerebellar tentorium appears improved. Minimal blood is seen along the posterior interhemispheric falx which is stable. No parenchymal hemorrhage is seen. Stable senescent change noted. Incidental basal ganglia calcification is seen. No acute bony abnormality is seen. Previous bur holes are noted within both frontal regions. Impression: 1. Slightly diminished subdural hematoma along the tentorium. 2. Other subdural hematomas remain stable from prior head CT exam. 3. Stable senescent change. Diagnostic code #3 Agree with preliminary report issued by [facility] ([facility] preliminary report dictated on 01/23/17, 5:04 PM Central Time)
[2017-01-24] MEDS: Lisinopril 10 MG Tab PO SCH ×2 (09:24→21:38)
[2017-01-24] MEDS: carBAMazepine 200 MG Tab PO SCH ×2 (09:25→21:36)
[2017-01-24] MEDS: Saccharomyces Boulardii (Probiotic) 250 MG Cap PO SCH ×2 (09:25→21:35)
[2017-01-24] MEDS: Cholecalciferol (Vitamin D3) 1,000 Unit Tab PO SCH (09:26)
[2017-01-24] MEDS: Famotidine 20 MG Tab GTUBE SCH (09:26)
[2017-01-24] MEDS: QUEtiapine 25 MG Tab PO SCH (09:26)
[2017-01-24] MEDS: CYCLOSPORINE EYEBOTH SCH ×2 (09:27→21:39)
[2017-01-24] MEDS: Insulin Aspart 100 Units/ML 3 ML Pen SUBCUT SCH ×2 (09:30→22:10)
--- NOTE | 2017-01-24 11:01 | PCM.PN ---
- General Info Date of Service: 01/24/17 Functional Status: Reports: Tolerating Diet, Urinating - Review of Systems General: Reports: No Symptoms HEENT: Reports: No Symptoms Pulmonary: Reports: No Symptoms Cardiovascular: Reports: No Symptoms Gastrointestinal: Reports: No Symptoms Genitourinary: Reports: No Symptoms Musculoskeletal: Reports: No Symptoms Skin: Reports: No Symptoms Neurological: Reports: No Symptoms Psychiatric: Reports: No Symptoms - Patient Data Vitals - Most Recent: Last Vital Signs Temp 36.7 C 01/24/17 08:39 Pulse 81 01/24/17 08:39 Resp 19 01/24/17 08:39 BP 108/58 L 01/24/17 09:24 Pulse Ox 97 01/24/17 08:39 Weight - Most Recent: 63.004 kg I&O - Last 24 Hours: Intake & Output 01/23/17 01/24/17 01/24/17 22:59 06:59 14:59 Intake Total 980 700 200 Output Total 300 Balance 980 400 200 Lab Results Last 24 Hours: Laboratory Results - last 24 hr 01/23/17 01/23/17 01/24/17 Range/Units 05:50 22:09 08:02 Sodium (136-145) mEq/L Potassium (3.5-5.1) mEq/L Chloride (98-107) mEq/L Carbon Dioxide (21-32) mEq/L Anion Gap (5-15) BUN (7-18) mg/dL Creatinine (0.55-1.02) mg/dL Est Cr Clr Drug Dosing mL/min Estimated GFR (MDRD) (>60) mL/min BUN/Creatinine Ratio (14-18) Glucose (83-115) mg/dL POC Glucose 119 H 86 (83-110) mg/dL Calcium (8.5-10.1) mg/dL Magnesium (1.8-2.4) mg/dl Carbamazepine 8.3 (4.0-12.0) ug/mL 01/24/17 01/24/17 Range/Units 08:50 08:50 Sodium 141 (136-145) mEq/L Potassium 3.9 (3.5-5.1) mEq/L Chloride 106 (98-107) mEq/L Carbon Dioxide 26 (21-32) mEq/L Anion Gap 12.9 (5-15) BUN 16 (7-18) mg/dL Creatinine 1.1 H (0.55-1.02) mg/dL Est Cr Clr Drug Dosing 30.37 mL/min Estimated GFR (MDRD) 47 (>60) mL/min BUN/Creatinine Ratio 14.5 (14-18) Glucose 128 H (83-115) mg/dL POC Glucose (83-110) mg/dL Calcium 9.0 (8.5-10.1) mg/dL Magnesium 2.3 (1.8-2.4) mg/dl Carbamazepine (4.0-12.0) ug/mL Med Orders - Current: Current Medications Acetaminophen (Tylenol) 650 mg PO Q4H PRN PRN Reason: Pain (Mild 1-3)/fever Last Admin: 01/23/17 21:56 Dose: 650 mg Acetaminophen (Tylenol) 650 mg RECTAL Q4H PRN PRN Reason: Pain/Fever Hydrocodone Bitart/Acetaminophen ([place] 325-5 Mg) 1 tab PO Q4H PRN PRN Reason: Pain (moderate 4-6) Bisacodyl (Dulcolax) 5 mg PO DAILY PRN PRN Reason: Constipation Last Admin: 01/19/17 04:58 Dose: 5 mg Bisacodyl (Dulcolax) 10 mg RECTAL DAILY PRN PRN Reason: Constipation Last Admin: 01/15/17 06:31 Dose: 10 mg Carbamazepine (Tegretol Tab) 200 mg PO BID [facility] Last Admin: 01/24/17 09:25 Dose: 200 mg Cholecalciferol (Vitamin D3) 2,000 units PO DAILY [facility] Last Admin: 01/24/17 09:26 Dose: 2,000 units Diltiazem HCl (Cardizem Ir) 30 mg PO Q6HR [facility] Last Admin: 01/24/17 06:58 Dose: 30 mg Docusate Sodium (Colace) 100 mg PO BID PRN PRN Reason: Constipation Famotidine (Pepcid) 20 mg GTUBE DAILY [facility] Last Admin: 01/24/17 09:26 Dose: 20 mg Hydralazine HCl (Apresoline) 10 mg IVPUSH Q4H PRN PRN Reason: Hypertension Hydromorphone HCl (Dilaudid) 0.25 mg IVPUSH Q2H PRN PRN Reason: Pain (severe 7-10) Last Admin: 01/18/17 19:12 Dose: 0.25 mg Piperacillin Sod/Tazobactam (Sod 4.5 gm/ Dextrose/Water) 100 mls @ 25 mls/hr IV Q8H [facility] Last Admin: 01/24/17 06:59 Dose: 25 mls/hr Insulin Aspart (Novolog) 0 unit SUBCUT [facility] PRN Reason: Protocol Last Admin: 01/23/17 22:19 Dose: Not Given Levothyroxine Sodium (Synthroid) 88 mcg PO ACBRK [facility] Last Admin: 01/24/17 06:58 Dose: 88 mcg Lisinopril (Prinivil) 10 mg PO BID [facility] Last Admin: 01/24/17 09:24 Dose: Not Given Lorazepam (Ativan) 2 mg IVPUSH Q4H PRN PRN Reason: Seizures Lorazepam (Ativan) 0.25 mg IVPUSH Q6H PRN PRN Reason: Anxiety Last Admin: 01/23/17 01:07 MDT Dose: 0.25 mg Metoprolol Tartrate (Lopressor) 5 mg IVPUSH Q4H PRN PRN Reason: Tachycardia Last Admin: 01/23/17 06:37 Dose: 5 mg Metoprolol Tartrate (Lopressor) 50 mg PO Q8HR [facility] Last Admin: 01/24/17 06:58 Dose: 50 mg Ondansetron HCl (Zofran) 4 mg IV Q6H PRN PRN Reason: Nausea/Vomiting Last Admin: 01/14/17 09:42 Dose: 4 mg Cyclosporine ( Restasis) Ophth Solution 0 each EYEBOTH BID [facility] Last Admin: 01/24/17 09:27 Dose: 1 each [Systane 0.3-0.4% Eye Drops] 1 D Own Med 0 each EYEBOTH BID [facility] Last Admin: 01/24/17 09:27 Dose: 1 each Polyethylene Glycol (Miralax) 17 gm PO DAILY PRN PRN Reason: Constipation Last Admin: 01/14/17 06:39 Dose: 17 gm Quetiapine Fumarate (Seroquel) 25 mg PO DAILY [facility] Last Admin: 01/24/17 09:26 Dose: 25 mg Saccharomyces Boulardii (Florastor) 250 mg PO BID [facility] Last Admin: 01/24/17 09:25 Dose: 250 mg Senna/Docusate Sodium (Senna Plus) 1 tab PO BID PRN PRN Reason: Constipation Last Admin: 01/19/17 08:58 Dose: 1 tab Simvastatin (Zocor) 20 mg PO BEDTIME [facility] Last Admin: 01/23/17 21:54 Dose: 20 mg Temazepam (Restoril) 7.5 mg PO BEDTIME PRN PRN Reason: Sleep Last Admin: 01/24/17 02:39 Dose: 7.5 mg Discontinued Medications Albuterol/Ipratropium (Duoneb 3.0-0.5 Mg/3 Ml) 3 ml NEB Q4H PRN PRN Reason: Shortness Of Breath/wheezing Bacitracin (Bacitracin Oint) Confirm Administered Dose 15 gm .ROUTE .STK-MED ONE Stop: 01/21/17 14:14 Last Admin: 01/21/17 14:10 Dose: 15 gm Bumetanide (Bumex) 0.5 mg IVPUSH ONETIME ONE Stop: 01/17/17 21:01 Last Admin: 01/17/17 22:13 Dose: 0.5 mg Bumetanide (Bumex) 1 mg IVPUSH ONETIME ONE Stop: 01/18/17 12:06 Last Admin: 01/18/17 13:20 Dose: 1 mg Bumetanide (Bumex) 0.5 mg IVPUSH ONETIME ONE Stop: 01/19/17 07:01 Bumetanide (Bumex) 1 mg IVPUSH ONETIME ONE Stop: 01/19/17 07:01 Last Admin: 01/19/17 06:15 Dose: 1 mg Carbamazepine (Tegretol) 300 mg PO TID [facility] Last Admin: 01/12/17 16:28 Dose: 300 mg Carbamazepine (Tegretol) 200 mg PO TID [facility] Last Admin: 01/12/17 20:09 Dose: 200 mg Carbamazepine (Tegretol Tab) 200 mg PO TID [facility] Last Admin: 01/14/17 08:18 Dose: 200 mg Carbamazepine (Tegretol) 150 mg PO TID [facility] Last Admin: 01/14/17 16:01 Dose: Not Given Carbamazepine (Tegretol) 150 mg PO BID [facility] Last Admin: 01/17/17 08:45 Dose: 150 mg Diazepam (Valium.) 5 mg PO ONETIME ONE Stop: 01/14/17 11:07 Last Admin: 01/14/17 11:27 Dose: 5 mg Diltiazem HCl (Cardizem Cd) 120 mg PO DAILY [facility] Last Admin: 01/18/17 08:19 Dose: 120 mg Diltiazem HCl (Cardizem) 60 mg PO ONETIME ONE Stop: 01/18/17 12:16 Last Admin: 01/18/17 13:20 Dose: 60 mg Diltiazem HCl (Cardizem) 30 mg PO ONETIME ONE Stop: 01/18/17 12:16 Last Admin: 01/18/17 13:20 Dose: 30 mg Diltiazem HCl (Cardizem Cd) 240 mg PO DAILY [facility] Diltiazem HCl (Cardizem Cd) 120 mg PO DAILY [facility] Last Admin: 01/20/17 08:01 Dose: 120 mg Diltiazem HCl (Diltiazem) 10 mg IVPUSH ONETIME ONE Stop: 01/19/17 11:36 Diltiazem HCl (Cardizem Ir) 60 mg PO Q6HR [facility] Last Admin: 01/23/17 12:01 Dose: 60 mg Famotidine (Pepcid) 20 mg IVPUSH BID [facility] Stop: 01/16/17 23:59 Last Admin: 01/16/17 20:18 Dose: 20 mg Famotidine (Pepcid) 20 mg IVPUSH DAILY [facility] Last Admin: 01/22/17 08:23 Dose: 20 mg Furosemide (Lasix) 20 mg PO DAILY PRN PRN Reason: Edema Furosemide (Lasix) 20 mg PO ONETIME ONE Stop: 01/17/17 07:31 Last Admin: 01/17/17 08:48 Dose: 20 mg Furosemide (Lasix) 20 mg IVPUSH NOW ONE Stop: 01/23/17 14:48 Last Admin: 01/23/17 14:10 Dose: Not Given Gabapentin (Neurontin) 100 mg PO DAILY [facility] Last Admin: 01/12/17 09:10 Dose: 100 mg Promethazine HCl 12.5 mg/ (Sodium Chloride) 50.5 mls @ 100 mls/hr IV Q6H PRN PRN Reason: Nausea/Vomiting Magnesium Sulfate 2 gm/ Premix 50 mls @ 25 mls/hr IV ONETIME ONE Stop: 01/13/17 12:59 Last Admin: 01/13/17 12:25 Dose: 25 mls/hr Dextrose/Sodium Chloride (Dextrose 5%-Normal Saline) 1,000 mls @ 75 mls/hr IV ASDIRECTED [facility] Last Admin: 01/17/17 04:53 Dose: 75 mls/hr Magnesium Sulfate 2 gm/ Premix 50 mls @ 25 mls/hr IV ONETIME ONE Stop: 01/15/17 10:59 Last Admin: 01/15/17 09:36 Dose: 25 mls/hr Azithromycin 500 mg/ Sodium (Chloride) 250 mls @ 250 mls/hr IV ONETIME ONE Stop: 01/15/17 20:25 Last Admin: 01/15/17 20:40 Dose: 250 mls/hr Ceftriaxone Sodium 1 gm/ (Sodium Chloride) 100 mls @ 200 mls/hr IV ONETIME ONE Stop: 01/15/17 21:00 Last Admin: 01/15/17 21:52 Dose: 200 mls/hr Ceftriaxone Sodium 1 gm/ (Sodium Chloride) 100 mls @ 200 mls/hr IV Q24H [facility] Last Admin: 01/16/17 19:36 Dose: Not Given Ceftriaxone Sodium 1 gm/ (Sodium Chloride) 100 mls @ 200 mls/hr IV Q24H [facility] Last Admin: 01/17/17 11:11 Dose: 200 mls/hr Azithromycin 500 mg/ Sodium (Chloride) 250 mls @ 250 mls/hr IV Q24H [facility] Last Admin: 01/17/17 10:41 Dose: Not Given Azithromycin 500 mg/ Sodium (Chloride) 250 mls @ 250 mls/hr IV ONETIME ONE Stop: 01/16/17 14:44 Last Admin: 01/16/17 14:20 Dose: 250 mls/hr Metronidazole 500 mg/ Premix 100 mls @ 100 mls/hr IV Q8H [facility] Last Admin: 01/20/17 09:46 Dose: 100 mls/hr Ceftriaxone Sodium 1 gm/ (Dextrose/Water) 100 mls @ 200 mls/hr IV Q24H [facility] Ceftriaxone Sodium 1 gm/ (Dextrose/Water) 100 mls @ 200 mls/hr IV Q24H [facility] Last Admin: 01/18/17 11:29 Dose: 200 mls/hr Piperacillin Sod/Tazobactam (Sod 4.5 gm/ Dextrose/Water) 100 mls @ 200 mls/hr IV ONETIME ONE Stop: 01/18/17 12:29 Last Admin: 01/18/17 13:21 Dose: 200 mls/hr Piperacillin Sod/Tazobactam (Sod 4.5 gm/ Dextrose/Water) 100 mls @ 25 mls/hr IV Q8H [facility] Stop: 01/20/17 17:00 Last Admin: 01/20/17 11:44 Dose: 25 mls/hr Esmolol HCl (Brevibloc In Ns Premix) 2.5 gm in 250 mls @ 0 mls/hr IV TITRATE MICHELLE; 50 MCG/KG/MIN PRN Reason: Protocol Diltiazem HCl 125 mg/ Sodium (Chloride) 125 mls @ 5 mls/hr IV TITRATE MICHELLE; 5 MG /HR PRN Reason: Protocol Diltiazem HCl 125 mg/ Sodium (Chloride) 125 mls @ 2.5 mls/hr IV TITRATE MICHELLE; 2.5 MG/HR PRN Reason: Protocol Last Titration: 01/20/17 09:29 Dose: 0 mg/hr, 0 mls/hr Ampicillin Sodium/Sulbactam (Sodium 1.5 gm/ Sodium Chloride) 100 mls @ 200 mls/ hr IV Q12H [facility] Last Admin: 01/21/17 08:59 Dose: 200 mls/hr Potassium Chloride 10 meq/ (Premix) 100 mls @ 100 mls/hr IV Q1H [facility] Stop: 01/21/17 12:59 Last Admin: 01/21/17 12:06 Dose: Not Given Potassium Chloride/Dextrose/Sod Cl (D5 Ns With 20 Meq Kcl) 1,000 mls @ 75 mls/ hr IV ASDIRECTED [facility] Last Admin: 01/22/17 00:29 Dose: 75 mls/hr Potassium Chloride 10 meq/ (Premix) 100 mls @ 100 mls/hr IV Q1H [facility] Stop: 01/21/17 11:29 Last Admin: 01/21/17 11:40 Dose: 100 mls/hr Ampicillin Sodium/Sulbactam (Sodium 1.5 gm/ Sodium Chloride) 100 mls @ 200 mls/ hr IV ONETIME ONE Stop: 01/21/17 14:31 Last Admin: 01/21/17 15:40 Dose: 200 mls/hr Magnesium Sulfate 2 gm/ Premix 50 mls @ 25 mls/hr IV ONETIME ONE Stop: 01/23/17 11:45 Last Admin: 01/23/17 12:00 Dose: 25 mls/hr Levalbuterol HCl (Xopenex) 1.25 mg INH QIDRT [facility] Last Admin: 01/23/17 10:09 Dose: 1.25 mg Lisinopril (Prinivil) 20 mg PO DAILY [facility] Last Admin: 01/23/17 11:05 Dose: Not Given Lisinopril (Prinivil) 10 mg PO DAILY [facility] Lorazepam (Ativan) 0.25 mg IV Q6H PRN PRN Reason: Anxiety Last Admin: 01/17/17 05:53 Dose: 0.25 mg Lorazepam (Ativan) 0.25 mg IV ONETIME ONE Stop: 01/18/17 09:16 Last Admin: 01/18/17 09:29 Dose: 0.25 mg Magnesium Oxide (Magnesium Oxide) 400 mg PO ONETIME ONE Stop: 01/13/17 08:01 Last Admin: 01/13/17 12:13 Dose: Not Given Magnesium Oxide (Magnesium Oxide) 800 mg PO ONETIME ONE Stop: 01/18/17 08:31 Last Admin: 01/18/17 08:24 Dose: 800 mg Magnesium Sulfate (Pharmacy To Dose - Magnesium Replacement) 1 dose .XX ASDIRECTED [facility] Metoprolol Succinate (Toprol Xl) 50 mg PO DAILY [facility] Last Admin: 01/18/17 08:22 Dose: 50 mg Metoprolol Succinate (Toprol Xl) 100 mg PO BID [facility] Last Admin: 01/20/17 20:23 Dose: 100 mg Metoprolol Succinate (Toprol Xl) 50 mg PO BID [facility] Last Admin: 01/23/17 10:58 Dose: Not Given Metoprolol Succinate (Toprol Xl) 25 mg PO ONETIME ONE Stop: 01/23/17 09:31 Last Admin: 01/23/17 09:30 Dose: 25 mg Modafinil (Provigil) 50 mg PO DAILY [facility] Last Admin: 01/15/17 09:26 Dose: 50 mg Modafinil (Provigil) 100 mg PO DAILY [facility] Last Admin: 01/17/17 08:47 Dose: 100 mg Ondansetron HCl (Zofran Odt) 4 mg PO Q6H [facility] Last Admin: 01/21/17 12:07 Dose: Not Given Phenytoin Sodium (Phenytoin) 100 mg PO BID [facility] Last Admin: 01/15/17 20:46 Dose: Not Given Potassium Chloride (Pharmacy To Dose - Potassium Replacement) 1 dose .XX ASDIRECTED [facility] Propofol (Diprivan 20 Ml) Confirm Administered Dose 200 mg .ROUTE .STK-MED ONE Stop: 01/21/17 12:19 Quetiapine Fumarate (Seroquel) 25 mg PO DAILY [facility] Last Admin: 01/15/17 09:26 Dose: 25 mg Quetiapine Fumarate (Seroquel) 25 mg PO ONETIME ONE Stop: 01/18/17 11:05 Last Admin: 01/18/17 11:23 Dose: 25 mg Saccharomyces Boulardii (Florastor) 250 mg PO DAILY [facility] Last Admin: 01/17/17 08:31 Dose: 250 mg - Exam Quality Assessment: DVT Prophylaxis General: Alert, Oriented, Cooperative, No Acute Distress HEENT: Pupils Equal, Pupils Reactive, EOMI Neck: Supple, Trachea Midline, No JVD Lungs: Normal Respiratory Effort Cardiovascular: Regular Rate GI/Abdominal Exam: Normal Bowel Sounds, Soft, Non-Tender, No Organomegaly, No Distention (Female) Exam: Deferred Back Exam: Normal Inspection Extremities: Normal Inspection Skin: Warm Neurological: No New Focal Deficit Psy/Mental Status: Alert - Problem List Review Problem List Initiated/Reviewed/Updated: Yes - My Orders Last 24 Hours: My Active Orders 01/23/17 14:00 Metoprolol Tartrate [Lopressor] 50 mg PO Q8HR 01/23/17 18:00 Diltiazem IR [Cardizem IR] 30 mg PO Q6HR 01/23/17 21:00 Lisinopril [Prinivil] 10 mg PO BID 01/24/17 10:00 PRO B-TYPE NATRIUR PEPT,BNPPRO [CHEM] DAILY 01/24/17 Lunch Tube Feeding Adult Diet [DIET] 01/25/17 10:00 PRO B-TYPE NATRIUR PEPT,BNPPRO [CHEM] DAILY 01/26/17 10:00 PRO B-TYPE NATRIUR PEPT,BNPPRO [CHEM] DAILY - Plan Plan:: Assessment/Plan: Acute: AMS/Delirium with hallucinations but less agitation/anxiety - She is on high dose anticonvulsant medications [employer] C[employer]TER: Gabapentin, Phenytoin and Carbamazepine-- has been trimmed to only carbamazepine 200mg BID; stable and without any evidence of seizure - Hx of seizure disorder s/p hemorrhagic stroke in the past - She does not follow a Neurologist - SENIOR INSIGHT MANAGER cont to follow - Seroquel scheduled daily and Ativan PRN for restlessness - Has been off of 1:1 care since yesterday afternoon, continue after transfer to [facility] [place] Aspiration Pneumonia, Possibly Improving - She has been altered with fluctuating level of alertness (delirium) - CXR shows right side pneumonia with small pleural effusion - Continue IV abx; consulted with pharmacy- now recommends unasyn; Continue florastor - Supplemental O2, Routine RT care and Bronchodilators - Sputum Cx/Sx--unable to obtain as patient does not understand/unable to follow instructions; as has been on abx tx for days now will cxl orders - WBC is now normal but CRP continues to go up - Cont SENIOR INSIGHT MANAGER evaluation ongoing daily Small Left Side Pleural Effusion, Stable - New abnormal finding on CXR - IS as directed- if able to cooperate - Aspiration precaution - Serial CXR as needed; will repeat CXR in AM - BNP elevated, diurese as needed. 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 Schmidt, Neurosurgeon: recommend CT scan in 2 weeks then follow up in the office - Continue Neuro check Q shift - Continue to Hold Warfarin and ASA - Follow up MRI: essentially the same from previous study; no acute new abnormal findings - Follow up head CT done today with stable findings with areas of micro bleeding within prior noted areas of density/subdural bleeds. - Reviewed with Dr. Nesbitt, will not resume anticoagulant on discharge based on these findings. Generalized Weakness, Unchanged - Likely 2/2 above and poor intake - Continue PT/OT - Thyroid panel: normal - Vit D level: low, started supplement as below - We offered Vibra for stroke rehab and her family was receptive Vitamin D-Deficiency, New - Vit D level 21 (low) - Continue Vit D supplement Subtherapeutic INR, Unchanged---Holding warfarin due to continued areas of micro bleeding on head CT - Last INR 1.18 - Continue to hold off Warfarin/ASA due to brain bleed - Recommend switching to DOACs (defer to PCP after discharge) Right Shoulder Pain, New - S/p Fall - Tender with palpation and pain with active movement - XR with 3 views to r/o acute fracture is negative - PRN pain medication; PT/OT Poor Nutritional Status - She is able to swallow/eat and drink but not meeting her nutritional requirement - She is breaking muscle down at this point and not able to do PT/OT - POD 1: PEG tube placement, TF started and tolerated. Resolved: S/P Fall at [facility] - High Fall Risk - Polypharmacy - Fall precautions in place Chronic: Impaired Vision HTN- stable, 120-130's/80-90's HLD- will check lipid panel Atrial Fibrillation via Holter Monitor ---afib with RVR not responding to tx; will transfer patient to ICU for further treatment and closer monitoring. Mitral Valve Insufficiency GERD- GI prophylax OA/DJD Osteoporosis Hypothyroidism- stable Trigerminal Neuralgia, Continue Carbamezapin Inflammatory Spondylopathy Hx/o DVT/TIA Hx/o Brain Bleed Hx/o seizure s/p hemorrhagic stroke Anxiety Plan: Disposition is pending, awaiting input from Brittney Adjusted Seroquel 12.5 mg daily Changed BB to short acting, did not take oral meds well today. Routine AM Labs Continue Neuro check Q4, SENIOR INSIGHT MANAGER and PT/OT DVT PPx: SCDs GI prophylaxis: H2B IV BID Advance Aspiration/Fall/Seizure Precautions Additional orders as above CM/SW for d/c planning- Vibra with PEG Tube for short tem use until her nutritional requirement is met Code Status: DNR/DNI Prognosis remains guarded-poor. LOS > 96 hours due to slow response to treatment; placement to [facility] for rehab likely next week.
[2017-01-24] MEDS: Simvastatin 20 MG Tab PO SCH (21:36)
[2017-01-25] MEDS: Diltiazem IR 30 MG Tab PO SCH ×5 (00:49→23:42)
[2017-01-25] MEDS: Piperacillin/Tazobactam 4.5 GM in Dextrose 5% in Water 100 ML IV SCH ×2 (05:59)
[2017-01-25] MEDS: Levothyroxine 88 MCG Tab PO SCH (06:00)
[2017-01-25] MEDS: Acetaminophen 325 MG Tab PO PRN (06:05)
[2017-01-25] MEDS: Metoprolol Tartrate 50 MG Tab PO SCH ×3 (06:07→23:24)
[2017-01-25] MEDS: carBAMazepine 200 MG Tab PO SCH ×2 (09:00→20:33)
[2017-01-25] MEDS: Famotidine 20 MG Tab GTUBE SCH (09:02)
[2017-01-25] MEDS: Cholecalciferol (Vitamin D3) 1,000 Unit Tab PO SCH (09:02)
[2017-01-25] MEDS: Lisinopril 10 MG Tab PO SCH ×2 (09:03→20:34)
[2017-01-25] MEDS: QUEtiapine 25 MG Tab PO SCH (09:04)
[2017-01-25] MEDS: Saccharomyces Boulardii (Probiotic) 250 MG Cap PO SCH ×2 (09:05→20:32)
[2017-01-25] MEDS: CYCLOSPORINE EYEBOTH SCH ×2 (09:07→20:34)
[2017-01-25] MEDS: Barium Sulfate 60% w/v Susp 355 ML Bottle PO ONE ×2 (10:30→16:24)
[2017-01-25] MEDS: Barium Sulfate 98% Powder for Susp 340 GM Bottle PO ONE ×2 (10:30→16:24)
[2017-01-25] MEDS: Barium Sulfate 60% w/w Esophageal Crm 454 GM Tube PO ONE ×2 (10:30→16:24)
[2017-01-25] MEDS: Insulin Aspart 100 Units/ML 3 ML Pen SUBCUT SCH ×2 (11:04→20:51)
--- NOTE | 2017-01-25 17:06 | PCM.PN ---
- General Info Date of Service: 01/25/17 Functional Status: Reports: Tolerating Diet, Urinating - Review of Systems General: Reports: No Symptoms HEENT: Reports: No Symptoms Pulmonary: Reports: No Symptoms Cardiovascular: Reports: No Symptoms Gastrointestinal: Reports: No Symptoms Genitourinary: Reports: No Symptoms Musculoskeletal: Reports: No Symptoms Skin: Reports: No Symptoms Neurological: Reports: No Symptoms Psychiatric: Reports: No Symptoms - Patient Data Vitals - Most Recent: Last Vital Signs Temp 37.0 C 01/25/17 09:00 Pulse 96 01/25/17 14:37 Resp 20 01/25/17 09:00 BP 108/58 L 01/25/17 14:37 Pulse Ox 96 01/25/17 09:00 Weight - Most Recent: 58.922 kg I&O - Last 24 Hours: Intake & Output 01/25/17 01/25/17 01/25/17 06:59 14:59 22:59 Intake Total 820 120 Balance 820 120 Lab Results Last 24 Hours: Laboratory Results - last 24 hr 01/24/17 01/25/17 01/25/17 Range/Units 22:01 06:25 07:10 WBC 9.00 (3.98-10.04) K/mm3 RBC 3.60 L (3.98-5.22) M/mm3 Hgb 10.7 L (11.2-15.7) gm/L Hct 33.0 L (34.1-44.9) % MCV 91.7 (79.4-94.8) fl MCH 29.7 (25.6-32.2) pg MCHC 32.4 (32.2-35.5) g/dl RDW Std Deviation 48.9 H (36.4-46.3) fL Plt Count 276 (182-369) K/mm3 MPV 9.7 (9.4-12.3) fl Neut % (Auto) 64.5 (34.0-71.1) % Lymph % (Auto) 13.1 L (19.3-51.7) % Sur[place] % (Auto) 12.2 (4.7-12.5) % Eos % (Auto) 9.0 H (0.7-5.8) Baso % (Auto) 0.6 (0.1-1.2) % Neut # (Auto) 5.81 (1.56-6.13) K/mm3 Lymph # (Auto) 1.18 (1.18-3.74) K/mm3 [place] # (Auto) 1.10 H (0.24-0.36) K/mm3 Eos # (Auto) 0.81 H (0.04-0.36) K/mm3 Baso # (Auto) 0.05 (0.01-0.08) K/mm3 Sodium (136-145) mEq/L Potassium (3.5-5.1) mEq/L Chloride (98-107) mEq/L Carbon Dioxide (21-32) mEq/L Anion Gap (5-15) BUN (7-18) mg/dL Creatinine (0.55-1.02) mg/dL Est Cr Clr Drug Dosing mL/min Estimated GFR (MDRD) (>60) mL/min BUN/Creatinine Ratio (14-18) Glucose (83-115) mg/dL POC Glucose 124 H 86 (83-110) mg/dL Calcium (8.5-10.1) mg/dL C-Reactive Protein (<1.0) mg/dL NT-Pro-B Natriuret Pep (0-450) pg/mL 01/25/17 01/25/17 Range/Units 07:10 10:00 WBC (3.98-10.04) K/mm3 RBC (3.98-5.22) M/mm3 Hgb (11.2-15.7) gm/L Hct (34.1-44.9) % MCV (79.4-94.8) fl MCH (25.6-32.2) pg MCHC (32.2-35.5) g/dl RDW Std Deviation (36.4-46.3) fL Plt Count (182-369) K/mm3 MPV (9.4-12.3) fl Neut % (Auto) (34.0-71.1) % Lymph % (Auto) (19.3-51.7) % Sur[place] % (Auto) (4.7-12.5) % Eos % (Auto) (0.7-5.8) Baso % (Auto) (0.1-1.2) % Neut # (Auto) (1.56-6.13) K/mm3 Lymph # (Auto) (1.18-3.74) K/mm3 [place] # (Auto) (0.24-0.36) K/mm3 Eos # (Auto) (0.04-0.36) K/mm3 Baso # (Auto) (0.01-0.08) K/mm3 Sodium 141 (136-145) mEq/L Potassium 3.8 (3.5-5.1) mEq/L Chloride 108 H (98-107) mEq/L Carbon Dioxide 26 (21-32) mEq/L Anion Gap 10.8 (5-15) BUN 16 (7-18) mg/dL Creatinine 1.1 H (0.55-1.02) mg/dL Est Cr Clr Drug Dosing 30.37 mL/min Estimated GFR (MDRD) 47 (>60) mL/min BUN/Creatinine Ratio 14.5 (14-18) Glucose 126 H (83-115) mg/dL POC Glucose (83-110) mg/dL Calcium 8.6 (8.5-10.1) mg/dL C-Reactive Protein 4.5 H* (<1.0) mg/dL NT-Pro-B Natriuret Pep 2977 H (0-450) pg/mL Med Orders - Current: Current Medications Acetaminophen (Tylenol) 650 mg PO Q4H PRN PRN Reason: Pain (Mild 1-3)/fever Last Admin: 01/25/17 06:05 Dose: 650 mg Acetaminophen (Tylenol) 650 mg RECTAL Q4H PRN PRN Reason: Pain/Fever Hydrocodone Bitart/Acetaminophen (Duvall 325-5 Mg) 1 tab PO Q4H PRN PRN Reason: Pain (moderate 4-6) Bisacodyl (Dulcolax) 5 mg PO DAILY PRN PRN Reason: Constipation Last Admin: 01/19/17 04:58 Dose: 5 mg Bisacodyl (Dulcolax) 10 mg RECTAL DAILY PRN PRN Reason: Constipation Last Admin: 01/15/17 06:31 Dose: 10 mg Carbamazepine (Tegretol Tab) 200 mg PO BID [facility] Last Admin: 01/25/17 09:00 Dose: 200 mg Cholecalciferol (Vitamin D3) 2,000 units PO DAILY [facility] Last Admin: 01/25/17 09:02 Dose: 2,000 units Diltiazem HCl (Cardizem Ir) 30 mg PO Q6HR [facility] Last Admin: 01/25/17 13:10 Dose: 30 mg Docusate Sodium (Colace) 100 mg PO BID PRN PRN Reason: Constipation Famotidine (Pepcid) 20 mg GTUBE DAILY [facility] Last Admin: 01/25/17 09:02 Dose: 20 mg Hydralazine HCl (Apresoline) 10 mg IVPUSH Q4H PRN PRN Reason: Hypertension Hydromorphone HCl (Dilaudid) 0.25 mg IVPUSH Q2H PRN PRN Reason: Pain (severe 7-10) Last Admin: 01/18/17 19:12 Dose: 0.25 mg Insulin Aspart (Novolog) 0 unit SUBCUT [facility] PRN Reason: Protocol Last Admin: 01/25/17 11:04 Dose: Not Given Levothyroxine Sodium (Synthroid) 88 mcg PO ACBRK [facility] Last Admin: 01/25/17 06:00 Dose: 88 mcg Lisinopril (Prinivil) 10 mg PO BID [facility] Last Admin: 01/25/17 09:03 Dose: 10 mg Lorazepam (Ativan) 2 mg IVPUSH Q4H PRN PRN Reason: Seizures Lorazepam (Ativan) 0.25 mg IVPUSH Q6H PRN PRN Reason: Anxiety Last Admin: 01/23/17 01:07 MDT Dose: 0.25 mg Metoprolol Tartrate (Lopressor) 5 mg IVPUSH Q4H PRN PRN Reason: Tachycardia Last Admin: 01/23/17 06:37 Dose: 5 mg Metoprolol Tartrate (Lopressor) 50 mg PO Q8HR [facility] Last Admin: 01/25/17 14:37 Dose: 50 mg Ondansetron HCl (Zofran) 4 mg IV Q6H PRN PRN Reason: Nausea/Vomiting Last Admin: 01/14/17 09:42 Dose: 4 mg Cyclosporine ( Restasis) Ophth Solution 0 each EYEBOTH BID [facility] Last Admin: 01/25/17 09:07 Dose: 1 each [Systane 0.3-0.4% Eye Drops] 1 D Own Med 0 each EYEBOTH BID [facility] Last Admin: 01/25/17 09:06 Dose: 1 each Polyethylene Glycol (Miralax) 17 gm PO DAILY PRN PRN Reason: Constipation Last Admin: 01/14/17 06:39 Dose: 17 gm Quetiapine Fumarate (Seroquel) 12.5 mg PO DAILY [facility] Last Admin: 01/25/17 09:04 Dose: 12.5 mg Saccharomyces Boulardii (Florastor) 250 mg PO BID [facility] Last Admin: 01/25/17 09:05 Dose: 250 mg Senna/Docusate Sodium (Senna Plus) 1 tab PO BID PRN PRN Reason: Constipation Last Admin: 01/19/17 08:58 Dose: 1 tab Simvastatin (Zocor) 20 mg PO BEDTIME MICHELLE Last Admin: 01/24/17 21:36 Dose: 20 mg Temazepam (Restoril) 7.5 mg PO BEDTIME PRN PRN Reason: Sleep Last Admin: 01/24/17 02:39 Dose: 7.5 mg Discontinued Medications Albuterol/Ipratropium (Duoneb 3.0-0.5 Mg/3 Ml) 3 ml NEB Q4H PRN PRN Reason: Shortness Of Breath/wheezing Bacitracin (Bacitracin Oint) Confirm Administered Dose 15 gm .ROUTE .STK-MED ONE Stop: 01/21/17 14:14 Last Admin: 01/21/17 14:10 Dose: 15 gm Barium Sulfate (E-Z-Hd) 340 gm PO ONETIME ONE Stop: 01/25/17 08:45 Last Admin: 01/25/17 16:24 Dose: Not Given Barium Sulfate (E-Z-Paste) 454 gm PO ONETIME ONE Stop: 01/25/17 08:45 Last Admin: 01/25/17 16:24 Dose: Not Given Barium Sulfate (Liquid E-Z Paque) 355 ml PO PREPRO ONE Stop: 01/25/17 08:45 Last Admin: 01/25/17 16:24 Dose: Not Given Bumetanide (Bumex) 0.5 mg IVPUSH ONETIME ONE Stop: 01/17/17 21:01 Last Admin: 01/17/17 22:13 Dose: 0.5 mg Bumetanide (Bumex) 1 mg IVPUSH ONETIME ONE Stop: 01/18/17 12:06 Last Admin: 01/18/17 13:20 Dose: 1 mg Bumetanide (Bumex) 0.5 mg IVPUSH ONETIME ONE Stop: 01/19/17 07:01 Bumetanide (Bumex) 1 mg IVPUSH ONETIME ONE Stop: 01/19/17 07:01 Last Admin: 01/19/17 06:15 Dose: 1 mg Carbamazepine (Tegretol) 300 mg PO TID [facility] Last Admin: 01/12/17 16:28 Dose: 300 mg Carbamazepine (Tegretol) 200 mg PO TID [facility] Last Admin: 01/12/17 20:09 Dose: 200 mg Carbamazepine (Tegretol Tab) 200 mg PO TID [facility] Last Admin: 01/14/17 08:18 Dose: 200 mg Carbamazepine (Tegretol) 150 mg PO TID [facility] Last Admin: 01/14/17 16:01 Dose: Not Given Carbamazepine (Tegretol) 150 mg PO BID [facility] Last Admin: 01/17/17 08:45 Dose: 150 mg Diazepam (Valium.) 5 mg PO ONETIME ONE Stop: 01/14/17 11:07 Last Admin: 01/14/17 11:27 Dose: 5 mg Diltiazem HCl (Cardizem Cd) 120 mg PO DAILY [facility] Last Admin: 01/18/17 08:19 Dose: 120 mg Diltiazem HCl (Cardizem) 60 mg PO ONETIME ONE Stop: 01/18/17 12:16 Last Admin: 01/18/17 13:20 Dose: 60 mg Diltiazem HCl (Cardizem) 30 mg PO ONETIME ONE Stop: 01/18/17 12:16 Last Admin: 01/18/17 13:20 Dose: 30 mg Diltiazem HCl (Cardizem Cd) 240 mg PO DAILY [facility] Diltiazem HCl (Cardizem Cd) 120 mg PO DAILY [facility] Last Admin: 01/20/17 08:01 Dose: 120 mg Diltiazem HCl (Diltiazem) 10 mg IVPUSH ONETIME ONE Stop: 01/19/17 11:36 Diltiazem HCl (Cardizem Ir) 60 mg PO Q6HR [facility] Last Admin: 01/23/17 12:01 Dose: 60 mg Famotidine (Pepcid) 20 mg IVPUSH BID [facility] Stop: 01/16/17 23:59 Last Admin: 01/16/17 20:18 Dose: 20 mg Famotidine (Pepcid) 20 mg IVPUSH DAILY [facility] Last Admin: 01/22/17 08:23 Dose: 20 mg Furosemide (Lasix) 20 mg PO DAILY PRN PRN Reason: Edema Furosemide (Lasix) 20 mg PO ONETIME ONE Stop: 01/17/17 07:31 Last Admin: 01/17/17 08:48 Dose: 20 mg Furosemide (Lasix) 20 mg IVPUSH NOW ONE Stop: 01/23/17 14:48 Last Admin: 01/23/17 14:10 Dose: Not Given Gabapentin (Neurontin) 100 mg PO DAILY [facility] Last Admin: 01/12/17 09:10 Dose: 100 mg Promethazine HCl 12.5 mg/ (Sodium Chloride) 50.5 mls @ 100 mls/hr IV Q6H PRN PRN Reason: Nausea/Vomiting Magnesium Sulfate 2 gm/ Premix 50 mls @ 25 mls/hr IV ONETIME ONE Stop: 01/13/17 12:59 Last Admin: 01/13/17 12:25 Dose: 25 mls/hr Dextrose/Sodium Chloride (Dextrose 5%-Normal Saline) 1,000 mls @ 75 mls/hr IV ASDIRECTED [facility] Last Admin: 01/17/17 04:53 Dose: 75 mls/hr Magnesium Sulfate 2 gm/ Premix 50 mls @ 25 mls/hr IV ONETIME ONE Stop: 01/15/17 10:59 Last Admin: 01/15/17 09:36 Dose: 25 mls/hr Azithromycin 500 mg/ Sodium (Chloride) 250 mls @ 250 mls/hr IV ONETIME ONE Stop: 01/15/17 20:25 Last Admin: 01/15/17 20:40 Dose: 250 mls/hr Ceftriaxone Sodium 1 gm/ (Sodium Chloride) 100 mls @ 200 mls/hr IV ONETIME ONE Stop: 01/15/17 21:00 Last Admin: 01/15/17 21:52 Dose: 200 mls/hr Ceftriaxone Sodium 1 gm/ (Sodium Chloride) 100 mls @ 200 mls/hr IV Q24H [facility] Last Admin: 01/16/17 19:36 Dose: Not Given Ceftriaxone Sodium 1 gm/ (Sodium Chloride) 100 mls @ 200 mls/hr IV Q24H [facility] Last Admin: 01/17/17 11:11 Dose: 200 mls/hr Azithromycin 500 mg/ Sodium (Chloride) 250 mls @ 250 mls/hr IV Q24H [facility] Last Admin: 01/17/17 10:41 Dose: Not Given Azithromycin 500 mg/ Sodium (Chloride) 250 mls @ 250 mls/hr IV ONETIME ONE Stop: 01/16/17 14:44 Last Admin: 01/16/17 14:20 Dose: 250 mls/hr Metronidazole 500 mg/ Premix 100 mls @ 100 mls/hr IV Q8H [facility] Last Admin: 01/20/17 09:46 Dose: 100 mls/hr Ceftriaxone Sodium 1 gm/ (Dextrose/Water) 100 mls @ 200 mls/hr IV Q24H [facility] Ceftriaxone Sodium 1 gm/ (Dextrose/Water) 100 mls @ 200 mls/hr IV Q24H [facility] Last Admin: 01/18/17 11:29 Dose: 200 mls/hr Piperacillin Sod/Tazobactam (Sod 4.5 gm/ Dextrose/Water) 100 mls @ 200 mls/hr IV ONETIME ONE Stop: 01/18/17 12:29 Last Admin: 01/18/17 13:21 Dose: 200 mls/hr Piperacillin Sod/Tazobactam (Sod 4.5 gm/ Dextrose/Water) 100 mls @ 25 mls/hr IV Q8H [facility] Stop: 01/20/17 17:00 Last Admin: 01/20/17 11:44 Dose: 25 mls/hr Esmolol HCl (Brevibloc In Ns Premix) 2.5 gm in 250 mls @ 0 mls/hr IV TITRATE MICHELLE; 50 MCG/KG/MIN PRN Reason: Protocol Diltiazem HCl 125 mg/ Sodium (Chloride) 125 mls @ 5 mls/hr IV TITRATE MICHELLE; 5 MG /HR PRN Reason: Protocol Diltiazem HCl 125 mg/ Sodium (Chloride) 125 mls @ 2.5 mls/hr IV TITRATE MICHELLE; 2.5 MG/HR PRN Reason: Protocol Last Titration: 01/20/17 09:29 Dose: 0 mg/hr, 0 mls/hr Ampicillin Sodium/Sulbactam (Sodium 1.5 gm/ Sodium Chloride) 100 mls @ 200 mls/ hr IV Q12H [facility] Last Admin: 01/21/17 08:59 Dose: 200 mls/hr Potassium Chloride 10 meq/ (Premix) 100 mls @ 100 mls/hr IV Q1H [facility] Stop: 01/21/17 12:59 Last Admin: 01/21/17 12:06 Dose: Not Given Potassium Chloride/Dextrose/Sod Cl (D5 Ns With 20 Meq Kcl) 1,000 mls @ 75 mls/ hr IV ASDIRECTED [facility] Last Admin: 01/22/17 00:29 Dose: 75 mls/hr Potassium Chloride 10 meq/ (Premix) 100 mls @ 100 mls/hr IV Q1H [facility] Stop: 01/21/17 11:29 Last Admin: 01/21/17 11:40 Dose: 100 mls/hr Piperacillin Sod/Tazobactam (Sod 4.5 gm/ Dextrose/Water) 100 mls @ 25 mls/hr IV Q8H [facility] Last Admin: 01/25/17 05:59 Dose: 25 mls/hr Ampicillin Sodium/Sulbactam (Sodium 1.5 gm/ Sodium Chloride) 100 mls @ 200 mls/ hr IV ONETIME ONE Stop: 01/21/17 14:31 Last Admin: 01/21/17 15:40 Dose: 200 mls/hr Magnesium Sulfate 2 gm/ Premix 50 mls @ 25 mls/hr IV ONETIME ONE Stop: 01/23/17 11:45 Last Admin: 01/23/17 12:00 Dose: 25 mls/hr Levalbuterol HCl (Xopenex) 1.25 mg INH QIDRT [facility] Last Admin: 01/23/17 10:09 Dose: 1.25 mg Lisinopril (Prinivil) 20 mg PO DAILY [facility] Last Admin: 01/23/17 11:05 Dose: Not Given Lisinopril (Prinivil) 10 mg PO DAILY [facility] Lorazepam (Ativan) 0.25 mg IV Q6H PRN PRN Reason: Anxiety Last Admin: 01/17/17 05:53 Dose: 0.25 mg Lorazepam (Ativan) 0.25 mg IV ONETIME ONE Stop: 01/18/17 09:16 Last Admin: 01/18/17 09:29 Dose: 0.25 mg Magnesium Oxide (Magnesium Oxide) 400 mg PO ONETIME ONE Stop: 01/13/17 08:01 Last Admin: 01/13/17 12:13 Dose: Not Given Magnesium Oxide (Magnesium Oxide) 800 mg PO ONETIME ONE Stop: 01/18/17 08:31 Last Admin: 01/18/17 08:24 Dose: 800 mg Magnesium Sulfate (Pharmacy To Dose - Magnesium Replacement) 1 dose .XX ASDIRECTED [facility] Metoprolol Succinate (Toprol Xl) 50 mg PO DAILY [facility] Last Admin: 01/18/17 08:22 Dose: 50 mg Metoprolol Succinate (Toprol Xl) 100 mg PO BID [facility] Last Admin: 01/20/17 20:23 Dose: 100 mg Metoprolol Succinate (Toprol Xl) 50 mg PO BID [facility] Last Admin: 01/23/17 10:58 Dose: Not Given Metoprolol Succinate (Toprol Xl) 25 mg PO ONETIME ONE Stop: 01/23/17 09:31 Last Admin: 01/23/17 09:30 Dose: 25 mg Modafinil (Provigil) 50 mg PO DAILY [facility] Last Admin: 01/15/17 09:26 Dose: 50 mg Modafinil (Provigil) 100 mg PO DAILY [facility] Last Admin: 01/17/17 08:47 Dose: 100 mg Ondansetron HCl (Zofran Odt) 4 mg PO Q6H [facility] Last Admin: 01/21/17 12:07 Dose: Not Given Phenytoin Sodium (Phenytoin) 100 mg PO BID [facility] Last Admin: 01/15/17 20:46 Dose: Not Given Potassium Chloride (Pharmacy To Dose - Potassium Replacement) 1 dose .XX ASDIRECTED [facility] Propofol (Diprivan 20 Ml) Confirm Administered Dose 200 mg .ROUTE .STK-MED ONE Stop: 01/21/17 12:19 Quetiapine Fumarate (Seroquel) 25 mg PO DAILY [facility] Last Admin: 01/15/17 09:26 Dose: 25 mg Quetiapine Fumarate (Seroquel) 25 mg PO ONETIME ONE Stop: 01/18/17 11:05 Last Admin: 01/18/17 11:23 Dose: 25 mg Quetiapine Fumarate (Seroquel) 25 mg PO DAILY [facility] Last Admin: 01/24/17 09:26 Dose: 25 mg Saccharomyces Boulardii (Florastor) 250 mg PO DAILY [facility] Last Admin: 01/17/17 08:31 Dose: 250 mg - Exam Quality Assessment: DVT Prophylaxis General: Alert, Oriented, Cooperative, No Acute Distress HEENT: Pupils Equal, Pupils Reactive, EOMI Neck: Supple, Trachea Midline, No JVD Lungs: Normal Respiratory Effort Cardiovascular: Regular Rate, Irregular Rhythm GI/Abdominal Exam: Normal Bowel Sounds, Soft, Non-Tender, No Organomegaly, No Distention (Female) Exam: Deferred Back Exam: Normal Inspection Extremities: Normal Inspection Skin: Warm Neurological: No New Focal Deficit, Normal Speech Psy/Mental Status: Alert, Normal Affect, Normal Mood - Problem List Review Problem List Initiated/Reviewed/Updated: Yes - My Orders Last 24 Hours: My Active Orders 01/25/17 08:42 Modified Barium Swallow Study [Swallowing Function w Video] [CR] Routine 01/25/17 09:16 OCCULT BLOOD SCREEN [OP] Routine 01/25/17 Breakfast National Dysphagia Diet [DIET] 01/26/17 05:00 BMP [BASIC METABOLIC PANEL,BMP] [CHEM] DAILY CBC WITH AUTO DIFF [HEME] DAILY CRP [C-REACTIVE PROTEIN] [CHEM] DAILY 01/26/17 10:00 PRO B-TYPE NATRIUR PEPT,BNPPRO [CHEM] DAILY 01/27/17 05:00 BMP [BASIC METABOLIC PANEL,BMP] [CHEM] DAILY CBC WITH AUTO DIFF [HEME] DAILY 01/28/17 05:00 BMP [BASIC METABOLIC PANEL,BMP] [CHEM] DAILY CBC WITH AUTO DIFF [HEME] DAILY - Plan Plan:: Assessment/Plan: Acute: AMS/Delirium with hallucinations but less agitation/anxiety - She is on high dose anticonvulsant medications CUT OFF [employer]: Gabapentin, Phenytoin and Carbamazepine-- has been trimmed to only carbamazepine 200mg BID; stable and without any evidence of seizure - Hx of seizure disorder s/p hemorrhagic stroke in the past - She does not follow a Neurologist - [employer] cont to follow - Seroquel scheduled daily and Ativan PRN for restlessness - Has been off of 1:1 care since yesterday afternoon, continue after transfer to [facility] [place] Aspiration Pneumonia, Possibly Improving - She has been altered with fluctuating level of alertness (delirium) - CXR shows right side pneumonia with small pleural effusion - Continue IV abx; consulted with pharmacy- now recommends unasyn; Continue florastor - Supplemental O2, Routine RT care and Bronchodilators - Sputum Cx/Sx--unable to obtain as patient does not understand/unable to follow instructions; as has been on abx tx for days now will cxl orders - WBC is now normal but CRP continues to go up - Cont [employer] evaluation ongoing daily Small Left Side Pleural Effusion, Stable - New abnormal finding on CXR - IS as directed- if able to cooperate - Aspiration precaution - Serial CXR as needed; will repeat CXR in AM - BNP elevated, diurese as needed. 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 Schmidt, Neurosurgeon: recommend CT scan in 2 weeks then follow up in the office - Continue Neuro check Q shift - Continue to Hold Warfarin and ASA - Follow up MRI: essentially the same from previous study; no acute new abnormal findings - Follow up head CT done today with stable findings with areas of micro bleeding within prior noted areas of density/subdural bleeds. - Reviewed with Dr. Nesbitt, will not resume anticoagulant on discharge based on these findings. Generalized Weakness, Unchanged - Likely 2/2 above and poor intake - Continue PT/OT - Thyroid panel: normal - Vit D level: low, started supplement as below - We offered Vibra for stroke rehab and her family was receptive Vitamin D-Deficiency, New - Vit D level 21 (low) - Continue Vit D supplement Subtherapeutic INR, Unchanged---Holding warfarin due to continued areas of micro bleeding on head CT - Last INR 1.18 - Continue to hold off Warfarin/ASA due to brain bleed - Recommend switching to DOACs (defer to PCP after discharge) Right Shoulder Pain, New - S/p Fall - Tender with palpation and pain with active movement - XR with 3 views to r/o acute fracture is negative - PRN pain medication; PT/OT Poor Nutritional Status - She is able to swallow/eat and drink but not meeting her nutritional requirement - She is breaking muscle down at this point and not able to do PT/OT - POD 1: PEG tube placement, TF started and tolerated. Resolved: S/P Fall at [facility] - High Fall Risk - Polypharmacy - Fall precautions in place Chronic: Impaired Vision HTN- stable, 120-130's/80-90's HLD- will check lipid panel Atrial Fibrillation via Holter Monitor ---afib with RVR not responding to tx; will transfer patient to ICU for further treatment and closer monitoring. Mitral Valve Insufficiency GERD- GI prophylax OA/DJD Osteoporosis Hypothyroidism- stable Trigerminal Neuralgia, Continue Carbamezapin Inflammatory Spondylopathy Hx/o DVT/TIA Hx/o Brain Bleed Hx/o seizure s/p hemorrhagic stroke Anxiety Plan: Disposition is pending, awaiting input from Brittney Adjusted Seroquel 12.5 mg daily Changed BB to short acting, did not take oral meds well today. Routine AM Labs Continue Neuro check Q4, [employer] and PT/OT DVT PPx: SCDs GI prophylaxis: H2B IV BID Advance Aspiration/Fall/Seizure Precautions Additional orders as above CM/SW for d/c planning- Vibra with PEG Tube for short tem use until her nutritional requirement is met Code Status: DNR/DNI Prognosis remains guarded-poor. LOS > 96 hours due to slow response to treatment; awaiting placement.
[2017-01-25] MEDS: Simvastatin 20 MG Tab PO SCH (20:32)
[2017-01-26] MEDS: Levothyroxine 88 MCG Tab PO SCH (05:52)
[2017-01-26] MEDS: Diltiazem IR 30 MG Tab PO SCH ×3 (05:53→17:51)
[2017-01-26] MEDS: Metoprolol Tartrate 50 MG Tab PO SCH ×3 (05:55→22:40)
--- NOTE | 2017-01-26 07:38 | CR ---
RSVP study Rehabilitative swallowing video procedure was performed in conjunction with the speech pathologist. Different consistencies of barium were given. There was aspiration with thinner liquids. Mild amount of increased residual is seen. For further details, please see the speech pathologist's report. Impression: 1. Findings as noted above. Diagnostic code #2
[2017-01-26] MEDS: QUEtiapine 25 MG Tab PO SCH (09:16)
[2017-01-26] MEDS: Saccharomyces Boulardii (Probiotic) 250 MG Cap PO SCH ×2 (09:17→20:37)
[2017-01-26] MEDS: carBAMazepine 200 MG Tab PO SCH ×2 (09:17→20:38)
[2017-01-26] MEDS: Cholecalciferol (Vitamin D3) 1,000 Unit Tab PO SCH (09:17)
[2017-01-26] MEDS: Famotidine 20 MG Tab GTUBE SCH (09:18)
[2017-01-26] MEDS: Insulin Aspart 100 Units/ML 3 ML Pen SUBCUT SCH ×2 (09:19→22:33)
[2017-01-26] MEDS: CYCLOSPORINE EYEBOTH SCH ×2 (09:19→20:34)
[2017-01-26] MEDS: Lisinopril 10 MG Tab PO SCH (09:25)
[2017-01-26] MEDS: Acetaminophen 325 MG Tab PO PRN ×2 (12:21→20:37)
--- NOTE | 2017-01-26 12:49 | PCM.PN ---
- General Info Date of Service: 01/26/17 Functional Status: Reports: Tolerating Diet, Urinating - Review of Systems General: Reports: No Symptoms HEENT: Reports: No Symptoms Pulmonary: Reports: No Symptoms Cardiovascular: Reports: No Symptoms Gastrointestinal: Reports: No Symptoms Genitourinary: Reports: No Symptoms Musculoskeletal: Reports: No Symptoms Skin: Reports: No Symptoms Neurological: Reports: No Symptoms Psychiatric: Reports: No Symptoms - Patient Data Vitals - Most Recent: Last Vital Signs Temp 37.2 C 01/26/17 07:33 Pulse 85 01/26/17 07:33 Resp 18 01/26/17 07:33 BP 116/62 01/26/17 10:04 Pulse Ox 98 01/26/17 07:33 Weight - Most Recent: 55.338 kg I&O - Last 24 Hours: Intake & Output 01/25/17 01/26/17 01/26/17 22:59 06:59 14:59 Intake Total 500 480 140 Output Total 3 Balance 497 480 140 Lab Results Last 24 Hours: Laboratory Results - last 24 hr 01/25/17 01/26/17 01/26/17 Range/Units 20:37 05:56 06:50 WBC 9.71 (3.98-10.04) K/mm3 RBC 3.68 L (3.98-5.22) M/mm3 Hgb 10.9 L (11.2-15.7) gm/L Hct 34.1 (34.1-44.9) % MCV 92.7 (79.4-94.8) fl MCH 29.6 (25.6-32.2) pg MCHC 32.0 L (32.2-35.5) g/dl RDW Std Deviation 49.3 H (36.4-46.3) fL Plt Count 345 (182-369) K/mm3 MPV 10.2 (9.4-12.3) fl Neut % (Auto) 61.1 (34.0-71.1) % Lymph % (Auto) 16.1 L (19.3-51.7) % [place] % (Auto) 13.7 H (4.7-12.5) % Eos % (Auto) 7.7 H (0.7-5.8) Baso % (Auto) 0.7 (0.1-1.2) % Neut # (Auto) 5.93 (1.56-6.13) K/mm3 Lymph # (Auto) 1.56 (1.18-3.74) K/mm3 [place] # (Auto) 1.33 H (0.24-0.36) K/mm3 Eos # (Auto) 0.75 H (0.04-0.36) K/mm3 Baso # (Auto) 0.07 (0.01-0.08) K/mm3 Manual Slide Review Abnormal smear Sodium (136-145) mEq/L Potassium (3.5-5.1) mEq/L Chloride (98-107) mEq/L Carbon Dioxide (21-32) mEq/L Anion Gap (5-15) BUN (7-18) mg/dL Creatinine (0.55-1.02) mg/dL Est Cr Clr Drug Dosing mL/min Estimated GFR (MDRD) (>60) mL/min BUN/Creatinine Ratio (14-18) Glucose (83-115) mg/dL POC Glucose 117 H 96 (83-110) mg/dL Calcium (8.5-10.1) mg/dL C-Reactive Protein (<1.0) mg/dL 01/26/17 01/26/17 Range/Units 06:50 10:50 WBC (3.98-10.04) K/mm3 RBC (3.98-5.22) M/mm3 Hgb (11.2-15.7) gm/L Hct (34.1-44.9) % MCV (79.4-94.8) fl MCH (25.6-32.2) pg MCHC (32.2-35.5) g/dl RDW Std Deviation (36.4-46.3) fL Plt Count (182-369) K/mm3 MPV (9.4-12.3) fl Neut % (Auto) (34.0-71.1) % Lymph % (Auto) (19.3-51.7) % [place] % (Auto) (4.7-12.5) % Eos % (Auto) (0.7-5.8) Baso % (Auto) (0.1-1.2) % Neut # (Auto) (1.56-6.13) K/mm3 Lymph # (Auto) (1.18-3.74) K/mm3 [place] # (Auto) (0.24-0.36) K/mm3 Eos # (Auto) (0.04-0.36) K/mm3 Baso # (Auto) (0.01-0.08) K/mm3 Manual Slide Review Sodium 142 (136-145) mEq/L Potassium 4.2 (3.5-5.1) mEq/L Chloride 108 H (98-107) mEq/L Carbon Dioxide 25 (21-32) mEq/L Anion Gap 13.2 (5-15) BUN 17 (7-18) mg/dL Creatinine 0.9 (0.55-1.02) mg/dL Est Cr Clr Drug Dosing 37.12 mL/min Estimated GFR (MDRD) 59 (>60) mL/min BUN/Creatinine Ratio 18.9 H (14-18) Glucose 102 (83-115) mg/dL POC Glucose 123 H (83-110) mg/dL Calcium 9.0 (8.5-10.1) mg/dL C-Reactive Protein 4.5 H* (<1.0) mg/dL Boy Results Last 24 Hours: Microbiology 01/25/17 19:15 Stool Occult Blood (BOY) - Final Stool / Feces Med Orders - Current: Current Medications Acetaminophen (Tylenol) 650 mg PO Q4H PRN PRN Reason: Pain (Mild 1-3)/fever Last Admin: 01/26/17 12:21 Dose: 650 mg Acetaminophen (Tylenol) 650 mg RECTAL Q4H PRN PRN Reason: Pain/Fever Hydrocodone Bitart/Acetaminophen ([place] 325-5 Mg) 1 tab PO Q4H PRN PRN Reason: Pain (moderate 4-6) Bisacodyl (Dulcolax) 5 mg PO DAILY PRN PRN Reason: Constipation Last Admin: 01/19/17 04:58 Dose: 5 mg Bisacodyl (Dulcolax) 10 mg RECTAL DAILY PRN PRN Reason: Constipation Last Admin: 01/15/17 06:31 Dose: 10 mg Carbamazepine (Tegretol Tab) 200 mg PO BID [facility] Last Admin: 01/26/17 09:17 Dose: 200 mg Cholecalciferol (Vitamin D3) 2,000 units PO DAILY [facility] Last Admin: 01/26/17 09:17 Dose: 2,000 units Diltiazem HCl (Cardizem Ir) 30 mg PO Q6HR [facility] Last Admin: 01/26/17 12:24 Dose: 30 mg Docusate Sodium (Colace) 100 mg PO BID PRN PRN Reason: Constipation Famotidine (Pepcid) 20 mg GTUBE DAILY [facility] Last Admin: 01/26/17 09:18 Dose: 20 mg Hydralazine HCl (Apresoline) 10 mg IVPUSH Q4H PRN PRN Reason: Hypertension Hydromorphone HCl (Dilaudid) 0.25 mg IVPUSH Q2H PRN PRN Reason: Pain (severe 7-10) Last Admin: 01/18/17 19:12 Dose: 0.25 mg Insulin Aspart (Novolog) 0 unit SUBCUT [facility] PRN Reason: Protocol Last Admin: 01/26/17 09:19 Dose: Not Given Levothyroxine Sodium (Synthroid) 88 mcg PO ACBRK [facility] Last Admin: 01/26/17 05:52 Dose: 88 mcg Lorazepam (Ativan) 2 mg IVPUSH Q4H PRN PRN Reason: Seizures Lorazepam (Ativan) 0.25 mg IVPUSH Q6H PRN PRN Reason: Anxiety Last Admin: 01/23/17 01:07 MDT Dose: 0.25 mg Metoprolol Tartrate (Lopressor) 5 mg IVPUSH Q4H PRN PRN Reason: Tachycardia Last Admin: 01/23/17 06:37 Dose: 5 mg Metoprolol Tartrate (Lopressor) 50 mg PO Q8HR [facility] Last Admin: 01/26/17 05:55 Dose: 50 mg Ondansetron HCl (Zofran) 4 mg IV Q6H PRN PRN Reason: Nausea/Vomiting Last Admin: 01/14/17 09:42 Dose: 4 mg Cyclosporine ( Restasis) Ophth Solution 0 each EYEBOTH BID [facility] Last Admin: 01/26/17 09:19 Dose: 1 each [Systane 0.3-0.4% Eye Drops] 1 D Own Med 0 each EYEBOTH BID [facility] Last Admin: 01/26/17 09:19 Dose: 1 each Polyethylene Glycol (Miralax) 17 gm PO DAILY PRN PRN Reason: Constipation Last Admin: 01/14/17 06:39 Dose: 17 gm Quetiapine Fumarate (Seroquel) 12.5 mg PO DAILY [facility] Last Admin: 01/26/17 09:16 Dose: 12.5 mg Saccharomyces Boulardii (Florastor) 250 mg PO BID [facility] Last Admin: 01/26/17 09:17 Dose: 250 mg Senna/Docusate Sodium (Senna Plus) 1 tab PO BID PRN PRN Reason: Constipation Last Admin: 01/19/17 08:58 Dose: 1 tab Simvastatin (Zocor) 20 mg PO BEDTIME [facility] Last Admin: 01/25/17 20:32 Dose: 20 mg Temazepam (Restoril) 7.5 mg PO BEDTIME PRN PRN Reason: Sleep Last Admin: 01/24/17 02:39 Dose: 7.5 mg Discontinued Medications Albuterol/Ipratropium (Duoneb 3.0-0.5 Mg/3 Ml) 3 ml NEB Q4H PRN PRN Reason: Shortness Of Breath/wheezing Bacitracin (Bacitracin Oint) Confirm Administered Dose 15 gm .ROUTE .STK-MED ONE Stop: 01/21/17 14:14 Last Admin: 01/21/17 14:10 Dose: 15 gm Barium Sulfate (E-Z-Hd) 340 gm PO ONETIME ONE Stop: 01/25/17 08:45 Last Admin: 01/25/17 16:24 Dose: Not Given Barium Sulfate (E-Z-Paste) 454 gm PO ONETIME ONE Stop: 01/25/17 08:45 Last Admin: 01/25/17 16:24 Dose: Not Given Barium Sulfate (Liquid E-Z Paque) 355 ml PO PREPRO ONE Stop: 01/25/17 08:45 Last Admin: 01/25/17 16:24 Dose: Not Given Bumetanide (Bumex) 0.5 mg IVPUSH ONETIME ONE Stop: 01/17/17 21:01 Last Admin: 01/17/17 22:13 Dose: 0.5 mg Bumetanide (Bumex) 1 mg IVPUSH ONETIME ONE Stop: 01/18/17 12:06 Last Admin: 01/18/17 13:20 Dose: 1 mg Bumetanide (Bumex) 0.5 mg IVPUSH ONETIME ONE Stop: 01/19/17 07:01 Bumetanide (Bumex) 1 mg IVPUSH ONETIME ONE Stop: 01/19/17 07:01 Last Admin: 01/19/17 06:15 Dose: 1 mg Carbamazepine (Tegretol) 300 mg PO TID [facility] Last Admin: 01/12/17 16:28 Dose: 300 mg Carbamazepine (Tegretol) 200 mg PO TID [facility] Last Admin: 01/12/17 20:09 Dose: 200 mg Carbamazepine (Tegretol Tab) 200 mg PO TID [facility] Last Admin: 01/14/17 08:18 Dose: 200 mg Carbamazepine (Tegretol) 150 mg PO TID [facility] Last Admin: 01/14/17 16:01 Dose: Not Given Carbamazepine (Tegretol) 150 mg PO BID [facility] Last Admin: 01/17/17 08:45 Dose: 150 mg Diazepam (Valium.) 5 mg PO ONETIME ONE Stop: 01/14/17 11:07 Last Admin: 01/14/17 11:27 Dose: 5 mg Diltiazem HCl (Cardizem Cd) 120 mg PO DAILY [facility] Last Admin: 01/18/17 08:19 Dose: 120 mg Diltiazem HCl (Cardizem) 60 mg PO ONETIME ONE Stop: 01/18/17 12:16 Last Admin: 01/18/17 13:20 Dose: 60 mg Diltiazem HCl (Cardizem) 30 mg PO ONETIME ONE Stop: 01/18/17 12:16 Last Admin: 01/18/17 13:20 Dose: 30 mg Diltiazem HCl (Cardizem Cd) 240 mg PO DAILY [facility] Diltiazem HCl (Cardizem Cd) 120 mg PO DAILY [facility] Last Admin: 01/20/17 08:01 Dose: 120 mg Diltiazem HCl (Diltiazem) 10 mg IVPUSH ONETIME ONE Stop: 01/19/17 11:36 Diltiazem HCl (Cardizem Ir) 60 mg PO Q6HR [facility] Last Admin: 01/23/17 12:01 Dose: 60 mg Famotidine (Pepcid) 20 mg IVPUSH BID [facility] Stop: 01/16/17 23:59 Last Admin: 01/16/17 20:18 Dose: 20 mg Famotidine (Pepcid) 20 mg IVPUSH DAILY [facility] Last Admin: 01/22/17 08:23 Dose: 20 mg Furosemide (Lasix) 20 mg PO DAILY PRN PRN Reason: Edema Furosemide (Lasix) 20 mg PO ONETIME ONE Stop: 01/17/17 07:31 Last Admin: 01/17/17 08:48 Dose: 20 mg Furosemide (Lasix) 20 mg IVPUSH NOW ONE Stop: 01/23/17 14:48 Last Admin: 01/23/17 14:10 Dose: Not Given Gabapentin (Neurontin) 100 mg PO DAILY [facility] Last Admin: 01/12/17 09:10 Dose: 100 mg Promethazine HCl 12.5 mg/ (Sodium Chloride) 50.5 mls @ 100 mls/hr IV Q6H PRN PRN Reason: Nausea/Vomiting Magnesium Sulfate 2 gm/ Premix 50 mls @ 25 mls/hr IV ONETIME ONE Stop: 01/13/17 12:59 Last Admin: 01/13/17 12:25 Dose: 25 mls/hr Dextrose/Sodium Chloride (Dextrose 5%-Normal Saline) 1,000 mls @ 75 mls/hr IV ASDIRECTED [facility] Last Admin: 01/17/17 04:53 Dose: 75 mls/hr Magnesium Sulfate 2 gm/ Premix 50 mls @ 25 mls/hr IV ONETIME ONE Stop: 01/15/17 10:59 Last Admin: 01/15/17 09:36 Dose: 25 mls/hr Azithromycin 500 mg/ Sodium (Chloride) 250 mls @ 250 mls/hr IV ONETIME ONE Stop: 01/15/17 20:25 Last Admin: 01/15/17 20:40 Dose: 250 mls/hr Ceftriaxone Sodium 1 gm/ (Sodium Chloride) 100 mls @ 200 mls/hr IV ONETIME ONE Stop: 01/15/17 21:00 Last Admin: 01/15/17 21:52 Dose: 200 mls/hr Ceftriaxone Sodium 1 gm/ (Sodium Chloride) 100 mls @ 200 mls/hr IV Q24H [facility] Last Admin: 01/16/17 19:36 Dose: Not Given Ceftriaxone Sodium 1 gm/ (Sodium Chloride) 100 mls @ 200 mls/hr IV Q24H [facility] Last Admin: 01/17/17 11:11 Dose: 200 mls/hr Azithromycin 500 mg/ Sodium (Chloride) 250 mls @ 250 mls/hr IV Q24H [facility] Last Admin: 01/17/17 10:41 Dose: Not Given Azithromycin 500 mg/ Sodium (Chloride) 250 mls @ 250 mls/hr IV ONETIME ONE Stop: 01/16/17 14:44 Last Admin: 01/16/17 14:20 Dose: 250 mls/hr Metronidazole 500 mg/ Premix 100 mls @ 100 mls/hr IV Q8H [facility] Last Admin: 01/20/17 09:46 Dose: 100 mls/hr Ceftriaxone Sodium 1 gm/ (Dextrose/Water) 100 mls @ 200 mls/hr IV Q24H [facility] Ceftriaxone Sodium 1 gm/ (Dextrose/Water) 100 mls @ 200 mls/hr IV Q24H [facility] Last Admin: 01/18/17 11:29 Dose: 200 mls/hr Piperacillin Sod/Tazobactam (Sod 4.5 gm/ Dextrose/Water) 100 mls @ 200 mls/hr IV ONETIME ONE Stop: 01/18/17 12:29 Last Admin: 01/18/17 13:21 Dose: 200 mls/hr Piperacillin Sod/Tazobactam (Sod 4.5 gm/ Dextrose/Water) 100 mls @ 25 mls/hr IV Q8H [facility] Stop: 01/20/17 17:00 Last Admin: 01/20/17 11:44 Dose: 25 mls/hr Esmolol HCl (Brevibloc In Ns Premix) 2.5 gm in 250 mls @ 0 mls/hr IV TITRATE [facility]; 50 MCG/KG/MIN PRN Reason: Protocol Diltiazem HCl 125 mg/ Sodium (Chloride) 125 mls @ 5 mls/hr IV TITRATE [facility]; 5 MG /HR PRN Reason: Protocol Diltiazem HCl 125 mg/ Sodium (Chloride) 125 mls @ 2.5 mls/hr IV TITRATE [facility]; 2.5 MG/HR PRN Reason: Protocol Last Titration: 01/20/17 09:29 Dose: 0 mg/hr, 0 mls/hr Ampicillin Sodium/Sulbactam (Sodium 1.5 gm/ Sodium Chloride) 100 mls @ 200 mls/ hr IV Q12H [facility] Last Admin: 01/21/17 08:59 Dose: 200 mls/hr Potassium Chloride 10 meq/ (Premix) 100 mls @ 100 mls/hr IV Q1H [facility] Stop: 01/21/17 12:59 Last Admin: 01/21/17 12:06 Dose: Not Given Potassium Chloride/Dextrose/Sod Cl (D5 Ns With 20 Meq Kcl) 1,000 mls @ 75 mls/ hr IV ASDIRECTED [facility] Last Admin: 01/22/17 00:29 Dose: 75 mls/hr Potassium Chloride 10 meq/ (Premix) 100 mls @ 100 mls/hr IV Q1H [facility] Stop: 01/21/17 11:29 Last Admin: 01/21/17 11:40 Dose: 100 mls/hr Piperacillin Sod/Tazobactam (Sod 4.5 gm/ Dextrose/Water) 100 mls @ 25 mls/hr IV Q8H [facility] Last Admin: 01/25/17 05:59 Dose: 25 mls/hr Ampicillin Sodium/Sulbactam (Sodium 1.5 gm/ Sodium Chloride) 100 mls @ 200 mls/ hr IV ONETIME ONE Stop: 01/21/17 14:31 Last Admin: 01/21/17 15:40 Dose: 200 mls/hr Magnesium Sulfate 2 gm/ Premix 50 mls @ 25 mls/hr IV ONETIME ONE Stop: 01/23/17 11:45 Last Admin: 01/23/17 12:00 Dose: 25 mls/hr Levalbuterol HCl (Xopenex) 1.25 mg INH QIDRT [facility] Last Admin: 01/23/17 10:09 Dose: 1.25 mg Lisinopril (Prinivil) 20 mg PO DAILY [facility] Last Admin: 01/23/17 11:05 Dose: Not Given Lisinopril (Prinivil) 10 mg PO DAILY [facility] Lisinopril (Prinivil) 10 mg PO BID [facility] Last Admin: 01/26/17 09:25 Dose: Not Given Lorazepam (Ativan) 0.25 mg IV Q6H PRN PRN Reason: Anxiety Last Admin: 01/17/17 05:53 Dose: 0.25 mg Lorazepam (Ativan) 0.25 mg IV ONETIME ONE Stop: 01/18/17 09:16 Last Admin: 01/18/17 09:29 Dose: 0.25 mg Magnesium Oxide (Magnesium Oxide) 400 mg PO ONETIME ONE Stop: 01/13/17 08:01 Last Admin: 01/13/17 12:13 Dose: Not Given Magnesium Oxide (Magnesium Oxide) 800 mg PO ONETIME ONE Stop: 01/18/17 08:31 Last Admin: 01/18/17 08:24 Dose: 800 mg Magnesium Sulfate (Pharmacy To Dose - Magnesium Replacement) 1 dose .XX ASDIRECTED [facility] Metoprolol Succinate (Toprol Xl) 50 mg PO DAILY [facility] Last Admin: 01/18/17 08:22 Dose: 50 mg Metoprolol Succinate (Toprol Xl) 100 mg PO BID [facility] Last Admin: 01/20/17 20:23 Dose: 100 mg Metoprolol Succinate (Toprol Xl) 50 mg PO BID [facility] Last Admin: 01/23/17 10:58 Dose: Not Given Metoprolol Succinate (Toprol Xl) 25 mg PO ONETIME ONE Stop: 01/23/17 09:31 Last Admin: 01/23/17 09:30 Dose: 25 mg Modafinil (Provigil) 50 mg PO DAILY [facility] Last Admin: 01/15/17 09:26 Dose: 50 mg Modafinil (Provigil) 100 mg PO DAILY [facility] Last Admin: 01/17/17 08:47 Dose: 100 mg Ondansetron HCl (Zofran Odt) 4 mg PO Q6H [facility] Last Admin: 01/21/17 12:07 Dose: Not Given Phenytoin Sodium (Phenytoin) 100 mg PO BID [facility] Last Admin: 01/15/17 20:46 Dose: Not Given Potassium Chloride (Pharmacy To Dose - Potassium Replacement) 1 dose .XX ASDIRECTED [facility] Propofol (Diprivan 20 Ml) Confirm Administered Dose 200 mg .ROUTE .STK-MED ONE Stop: 01/21/17 12:19 Quetiapine Fumarate (Seroquel) 25 mg PO DAILY [facility] Last Admin: 01/15/17 09:26 Dose: 25 mg Quetiapine Fumarate (Seroquel) 25 mg PO ONETIME ONE Stop: 01/18/17 11:05 Last Admin: 01/18/17 11:23 Dose: 25 mg Quetiapine Fumarate (Seroquel) 25 mg PO DAILY [facility] Last Admin: 01/24/17 09:26 Dose: 25 mg Saccharomyces Boulardii (Florastor) 250 mg PO DAILY [facility] Last Admin: 01/17/17 08:31 Dose: 250 mg - Exam Quality Assessment: DVT Prophylaxis General: Alert, Oriented, Cooperative, No Acute Distress HEENT: Pupils Equal, Pupils Reactive, EOMI Neck: Supple, Trachea Midline Lungs: Normal Respiratory Effort Cardiovascular: Regular Rate, Irregular Rhythm GI/Abdominal Exam: Normal Bowel Sounds, Soft, Non-Tender, No Organomegaly, No Distention (Female) Exam: Deferred Back Exam: Normal Inspection Extremities: Normal Inspection Skin: Warm Neurological: No New Focal Deficit Psy/Mental Status: Alert - Problem List Review Problem List Initiated/Reviewed/Updated: Yes - My Orders Last 24 Hours: My Active Orders 01/26/17 01:39 Spiritual Care Follow Up [CONS] Routine 01/26/17 10:00 PRO B-TYPE NATRIUR PEPT,BNPPRO [CHEM] DAILY 01/26/17 14:34 Furosemide [Lasix] 10 mg IVPUSH NOW ONE 01/27/17 05:00 BMP [BASIC METABOLIC PANEL,BMP] [CHEM] DAILY CBC WITH AUTO DIFF [HEME] DAILY 01/27/17 09:00 Lisinopril [Prinivil] 10 mg PO DAILY 01/28/17 05:00 BMP [BASIC METABOLIC PANEL,BMP] [CHEM] DAILY CBC WITH AUTO DIFF [HEME] DAILY - Plan Plan:: Assessment/Plan: Acute: AMS/Delirium with hallucinations but less agitation/anxiety; resolved has occasional bouts of hallucinations - Hx of seizure disorder s/p hemorrhagic stroke in the past - She does not follow a Neurologist - CENTRIFUGE OPERATOR cont to follow - Seroquel scheduled daily; several days ago dose was decreased to avoid confusion, and Ativan PRN for restlessness Aspiration Pneumonia, presumptive treatment - She has been altered with fluctuating level of alertness (delirium) - CXR shows right side pneumonia with small pleural effusion - ATB have bed stopped. Continue florastor - Supplemental O2, Routine RT care and Bronchodilators - Sputum Cx/Sx--unable to obtain as patient does not understand/unable to follow instructions; as has been on abx tx for days now will cxl orders - WBC is now normal but CRP continues to go up - Cont CENTRIFUGE OPERATOR evaluation ongoing daily Small Left Side Pleural Effusion, Stable - IS as directed- if able to cooperate - Aspiration precaution - Serial CXR as needed; will repeat CXR in AM - BNP elevated, diurese as needed. 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 Schmidt, Neurosurgeon: recommend CT scan in 2 weeks then follow up in the office - Continue Neuro check Q shift - Continue to Hold Warfarin and ASA - Follow up MRI: essentially the same from previous study; no acute new abnormal findings - Follow up head CT done today with stable findings with areas of micro bleeding within prior noted areas of density/subdural bleeds. - Reviewed with Dr. Nesbitt, will not resume anticoagulant on discharge based on these findings. Generalized Weakness, Unchanged - Likely 2/2 above and poor intake - Continue PT/OT - Thyroid panel: normal - Vit D level: low, started supplement as below - We offered Vibra for stroke rehab and her family was receptive Vitamin D-Deficiency, New - Vit D level 21 (low) - Continue Vit D supplement Subtherapeutic INR, Unchanged---Holding warfarin due to continued areas of micro bleeding on head CT - Last INR 1.18 - Continue to hold off Warfarin/ASA due to brain bleed - Recommend switching to DOACs (defer to PCP after discharge) Right Shoulder Pain, New - S/p Fall - Tender with palpation and pain with active movement - XR with 3 views to r/o acute fracture is negative - PRN pain medication; PT/OT Poor Nutritional Status - She is able to swallow/eat and drink but not meeting her nutritional requirement - She is breaking muscle down at this point and not able to do PT/OT - POD 1: PEG tube placement, TF started and tolerated. Resolved: S/P Fall at [facility] - High Fall Risk - Polypharmacy - Fall precautions in place Chronic: Impaired Vision HTN- stable, 120-130's/80-90's HLD- will check lipid panel Atrial Fibrillation via Holter Monitor ; controlled at the time transferred out of ICU; short acting Cardizem is being used;. Mitral Valve Insufficiency GERD- GI prophylax OA/DJD Osteoporosis Hypothyroidism- stable Trigerminal Neuralgia, Continue Carbamezapin Inflammatory Spondylopathy Hx/o DVT/TIA Hx/o Brain Bleed Hx/o seizure s/p hemorrhagic stroke Anxiety Plan: Disposition is pending, awaiting input from Brittney Adjusted Seroquel 12.5 mg daily Changed BB to short acting, did not take oral meds well today. Routine AM Labs Continue Neuro check Q4, CENTRIFUGE OPERATOR and PT/OT DVT PPx: SCDs GI prophylaxis: H2B IV BID Advance Aspiration/Fall/Seizure Precautions Additional orders as above CM/SW for d/c planning- Vibrefren with PEG Tube for short tem use until her nutritional requirement is met Code Status: DNR/DNI Prognosis remains guarded-poor. LOS > 96 hours due to slow response to treatment; awaiting placement.
[2017-01-26] MEDS ORDERED: Furosemide 20 MG/2 ML VIAL IVPUSH ONE (14:34)
[2017-01-26] MEDS: Simvastatin 20 MG Tab PO SCH (20:38)
[2017-01-27] MEDS: Diltiazem IR 30 MG Tab PO SCH ×4 (01:03→17:56)
[2017-01-27] MEDS: Levothyroxine 88 MCG Tab PO SCH (05:52)
[2017-01-27] MEDS: Metoprolol Tartrate 50 MG Tab PO SCH ×3 (05:52→22:00)
[2017-01-27] MEDS: Saccharomyces Boulardii (Probiotic) 250 MG Cap PO SCH ×2 (08:03→21:57)
[2017-01-27] MEDS: Cholecalciferol (Vitamin D3) 1,000 Unit Tab PO SCH (08:03)
[2017-01-27] MEDS: Famotidine 20 MG Tab GTUBE SCH (08:03)
[2017-01-27] MEDS: carBAMazepine 200 MG Tab PO SCH ×2 (08:03→21:58)
[2017-01-27] MEDS: QUEtiapine 25 MG Tab PO SCH (08:04)
[2017-01-27] MEDS: CYCLOSPORINE EYEBOTH SCH ×2 (08:04→22:02)
[2017-01-27] MEDS: Insulin Aspart 100 Units/ML 3 ML Pen SUBCUT SCH ×2 (08:07→23:10)
--- NOTE | 2017-01-27 13:24 | PCM.PN ---
- General Info Date of Service: 01/27/17 Functional Status: Reports: Tolerating Diet, Ambulating, Urinating - Review of Systems General: Reports: No Symptoms HEENT: Reports: No Symptoms Pulmonary: Reports: No Symptoms Cardiovascular: Reports: No Symptoms Gastrointestinal: Reports: No Symptoms Genitourinary: Reports: No Symptoms Musculoskeletal: Reports: No Symptoms Skin: Reports: No Symptoms Neurological: Reports: No Symptoms Psychiatric: Reports: No Symptoms - Patient Data Vitals - Most Recent: Last Vital Signs Temp 36.2 C 01/27/17 11:47 Pulse 85 01/27/17 11:47 Resp 19 01/27/17 11:47 BP 127/96 H 01/27/17 11:47 Pulse Ox 99 01/27/17 11:47 Weight - Most Recent: 55.338 kg I&O - Last 24 Hours: Intake & Output 01/26/17 01/27/17 01/27/17 22:59 06:59 14:59 Intake Total 850 1320 280 Output Total 4 600 Balance 846 720 280 Lab Results Last 24 Hours: Laboratory Results - last 24 hr 01/26/17 01/26/17 01/26/17 Range/Units 10:00 16:50 21:45 WBC (3.98-10.04) K/mm3 RBC (3.98-5.22) M/mm3 Hgb (11.2-15.7) gm/L Hct (34.1-44.9) % MCV (79.4-94.8) fl MCH (25.6-32.2) pg MCHC (32.2-35.5) g/dl RDW Std Deviation (36.4-46.3) fL Plt Count (182-369) K/mm3 MPV (9.4-12.3) fl Neut % (Auto) (34.0-71.1) % Lymph % (Auto) (19.3-51.7) % [place] % (Auto) (4.7-12.5) % Eos % (Auto) (0.7-5.8) Baso % (Auto) (0.1-1.2) % Neut # (Auto) (1.56-6.13) K/mm3 Lymph # (Auto) (1.18-3.74) K/mm3 [place] # (Auto) (0.24-0.36) K/mm3 Eos # (Auto) (0.04-0.36) K/mm3 Baso # (Auto) (0.01-0.08) K/mm3 Manual Slide Review Sodium (136-145) mEq/L Potassium (3.5-5.1) mEq/L Chloride (98-107) mEq/L Carbon Dioxide (21-32) mEq/L Anion Gap (5-15) BUN (7-18) mg/dL Creatinine (0.55-1.02) mg/dL Est Cr Clr Drug Dosing mL/min Estimated GFR (MDRD) (>60) mL/min BUN/Creatinine Ratio (14-18) Glucose (83-115) mg/dL POC Glucose 130 H 114 H (83-110) mg/dL Calcium (8.5-10.1) mg/dL NT-Pro-B Natriuret Pep 3847 H (0-450) pg/mL 01/27/17 01/27/17 01/27/17 Range/Units 05:49 05:49 05:54 WBC 9.52 (3.98-10.04) K/mm3 RBC 3.71 L (3.98-5.22) M/mm3 Hgb 11.0 L (11.2-15.7) gm/L Hct 34.4 (34.1-44.9) % MCV 92.7 (79.4-94.8) fl MCH 29.6 (25.6-32.2) pg MCHC 32.0 L (32.2-35.5) g/dl RDW Std Deviation 49.5 H (36.4-46.3) fL Plt Count 400 H (182-369) K/mm3 MPV 10.1 (9.4-12.3) fl Neut % (Auto) 57.4 (34.0-71.1) % Lymph % (Auto) 19.2 L (19.3-51.7) % [place] % (Auto) 14.5 H (4.7-12.5) % Eos % (Auto) 7.5 H (0.7-5.8) Baso % (Auto) 0.7 (0.1-1.2) % Neut # (Auto) 5.46 (1.56-6.13) K/mm3 Lymph # (Auto) 1.83 (1.18-3.74) K/mm3 [place] # (Auto) 1.38 H (0.24-0.36) K/mm3 Eos # (Auto) 0.71 H (0.04-0.36) K/mm3 Baso # (Auto) 0.07 (0.01-0.08) K/mm3 Manual Slide Review Abnormal smear Sodium 140 (136-145) mEq/L Potassium 4.4 (3.5-5.1) mEq/L Chloride 107 (98-107) mEq/L Carbon Dioxide 25 (21-32) mEq/L Anion Gap 12.4 (5-15) BUN 23 H (7-18) mg/dL Creatinine 1.0 (0.55-1.02) mg/dL Est Cr Clr Drug Dosing 33.41 mL/min Estimated GFR (MDRD) 53 (>60) mL/min BUN/Creatinine Ratio 23.0 H (14-18) Glucose 93 (83-115) mg/dL POC Glucose 97 (83-110) mg/dL Calcium 9.7 (8.5-10.1) mg/dL NT-Pro-B Natriuret Pep (0-450) pg/mL 01/27/17 Range/Units 11:39 WBC (3.98-10.04) K/mm3 RBC (3.98-5.22) M/mm3 Hgb (11.2-15.7) gm/L Hct (34.1-44.9) % MCV (79.4-94.8) fl MCH (25.6-32.2) pg MCHC (32.2-35.5) g/dl RDW Std Deviation (36.4-46.3) fL Plt Count (182-369) K/mm3 MPV (9.4-12.3) fl Neut % (Auto) (34.0-71.1) % Lymph % (Auto) (19.3-51.7) % [place] % (Auto) (4.7-12.5) % Eos % (Auto) (0.7-5.8) Baso % (Auto) (0.1-1.2) % Neut # (Auto) (1.56-6.13) K/mm3 Lymph # (Auto) (1.18-3.74) K/mm3 [place] # (Auto) (0.24-0.36) K/mm3 Eos # (Auto) (0.04-0.36) K/mm3 Baso # (Auto) (0.01-0.08) K/mm3 Manual Slide Review Sodium (136-145) mEq/L Potassium (3.5-5.1) mEq/L Chloride (98-107) mEq/L Carbon Dioxide (21-32) mEq/L Anion Gap (5-15) BUN (7-18) mg/dL Creatinine (0.55-1.02) mg/dL Est Cr Clr Drug Dosing mL/min Estimated GFR (MDRD) (>60) mL/min BUN/Creatinine Ratio (14-18) Glucose (83-115) mg/dL POC Glucose 100 (83-110) mg/dL Calcium (8.5-10.1) mg/dL NT-Pro-B Natriuret Pep (0-450) pg/mL Med Orders - Current: Current Medications Acetaminophen (Tylenol) 650 mg PO Q4H PRN PRN Reason: Pain (Mild 1-3)/fever Last Admin: 01/26/17 20:37 Dose: 650 mg Acetaminophen (Tylenol) 650 mg RECTAL Q4H PRN PRN Reason: Pain/Fever Hydrocodone Bitart/Acetaminophen ([place] 325-5 Mg) 1 tab PO Q4H PRN PRN Reason: Pain (moderate 4-6) Bisacodyl (Dulcolax) 5 mg PO DAILY PRN PRN Reason: Constipation Last Admin: 01/19/17 04:58 Dose: 5 mg Bisacodyl (Dulcolax) 10 mg RECTAL DAILY PRN PRN Reason: Constipation Last Admin: 01/15/17 06:31 Dose: 10 mg Carbamazepine (Tegretol Tab) 200 mg PO BID [facility] Last Admin: 01/27/17 08:03 Dose: 200 mg Cholecalciferol (Vitamin D3) 2,000 units PO DAILY [facility] Last Admin: 01/27/17 08:03 Dose: 2,000 units Diltiazem HCl (Cardizem Ir) 30 mg PO Q6HR [facility] Last Admin: 01/27/17 05:52 Dose: 30 mg Docusate Sodium (Colace) 100 mg PO BID PRN PRN Reason: Constipation Famotidine (Pepcid) 20 mg GTUBE DAILY [facility] Last Admin: 01/27/17 08:03 Dose: 20 mg Hydralazine HCl (Apresoline) 10 mg IVPUSH Q4H PRN PRN Reason: Hypertension Hydromorphone HCl (Dilaudid) 0.25 mg IVPUSH Q2H PRN PRN Reason: Pain (severe 7-10) Last Admin: 01/18/17 19:12 Dose: 0.25 mg Insulin Aspart (Novolog) 0 unit SUBCUT [facility] PRN Reason: Protocol Last Admin: 01/27/17 08:07 Dose: Not Given Levothyroxine Sodium (Synthroid) 88 mcg PO ACBRK [facility] Last Admin: 01/27/17 05:52 Dose: 88 mcg Lisinopril (Prinivil) 10 mg PO BEDTIME [facility] Lorazepam (Ativan) 2 mg IVPUSH Q4H PRN PRN Reason: Seizures Lorazepam (Ativan) 0.25 mg IVPUSH Q6H PRN PRN Reason: Anxiety Last Admin: 01/23/17 01:07 MDT Dose: 0.25 mg Metoprolol Tartrate (Lopressor) 5 mg IVPUSH Q4H PRN PRN Reason: Tachycardia Last Admin: 01/23/17 06:37 Dose: 5 mg Metoprolol Tartrate (Lopressor) 50 mg PO Q8HR [facility] Last Admin: 01/27/17 05:52 Dose: 50 mg Ondansetron HCl (Zofran) 4 mg IV Q6H PRN PRN Reason: Nausea/Vomiting Last Admin: 01/14/17 09:42 Dose: 4 mg Cyclosporine ( Restasis) Ophth Solution 0 each EYEBOTH BID [facility] Last Admin: 01/27/17 08:04 Dose: 1 each [Systane 0.3-0.4% Eye Drops] 1 D Own Med 0 each EYEBOTH BID [facility] Last Admin: 01/27/17 08:04 Dose: 1 each Polyethylene Glycol (Miralax) 17 gm PO DAILY PRN PRN Reason: Constipation Last Admin: 01/14/17 06:39 Dose: 17 gm Quetiapine Fumarate (Seroquel) 12.5 mg PO DAILY [facility] Last Admin: 01/27/17 08:04 Dose: 12.5 mg Saccharomyces Boulardii (Florastor) 250 mg PO BID [facility] Last Admin: 01/27/17 08:03 Dose: 250 mg Senna/Docusate Sodium (Senna Plus) 1 tab PO BID PRN PRN Reason: Constipation Last Admin: 01/19/17 08:58 Dose: 1 tab Simvastatin (Zocor) 20 mg PO BEDTIME [facility] Last Admin: 01/26/17 20:38 Dose: 20 mg Temazepam (Restoril) 7.5 mg PO BEDTIME PRN PRN Reason: Sleep Last Admin: 01/24/17 02:39 Dose: 7.5 mg Discontinued Medications Albuterol/Ipratropium (Duoneb 3.0-0.5 Mg/3 Ml) 3 ml NEB Q4H PRN PRN Reason: Shortness Of Breath/wheezing Bacitracin (Bacitracin Oint) Confirm Administered Dose 15 gm .ROUTE .STK-MED ONE Stop: 01/21/17 14:14 Last Admin: 01/21/17 14:10 Dose: 15 gm Barium Sulfate (E-Z-Hd) 340 gm PO ONETIME ONE Stop: 01/25/17 08:45 Last Admin: 01/25/17 16:24 Dose: Not Given Barium Sulfate (E-Z-Paste) 454 gm PO ONETIME ONE Stop: 01/25/17 08:45 Last Admin: 01/25/17 16:24 Dose: Not Given Barium Sulfate (Liquid E-Z Paque) 355 ml PO PREPRO ONE Stop: 01/25/17 08:45 Last Admin: 01/25/17 16:24 Dose: Not Given Bumetanide (Bumex) 0.5 mg IVPUSH ONETIME ONE Stop: 01/17/17 21:01 Last Admin: 01/17/17 22:13 Dose: 0.5 mg Bumetanide (Bumex) 1 mg IVPUSH ONETIME ONE Stop: 01/18/17 12:06 Last Admin: 01/18/17 13:20 Dose: 1 mg Bumetanide (Bumex) 0.5 mg IVPUSH ONETIME ONE Stop: 01/19/17 07:01 Bumetanide (Bumex) 1 mg IVPUSH ONETIME ONE Stop: 01/19/17 07:01 Last Admin: 01/19/17 06:15 Dose: 1 mg Carbamazepine (Tegretol) 300 mg PO TID [facility] Last Admin: 01/12/17 16:28 Dose: 300 mg Carbamazepine (Tegretol) 200 mg PO TID [facility] Last Admin: 01/12/17 20:09 Dose: 200 mg Carbamazepine (Tegretol Tab) 200 mg PO TID [facility] Last Admin: 01/14/17 08:18 Dose: 200 mg Carbamazepine (Tegretol) 150 mg PO TID [facility] Last Admin: 01/14/17 16:01 Dose: Not Given Carbamazepine (Tegretol) 150 mg PO BID [facility] Last Admin: 01/17/17 08:45 Dose: 150 mg Diazepam (Valium.) 5 mg PO ONETIME ONE Stop: 01/14/17 11:07 Last Admin: 01/14/17 11:27 Dose: 5 mg Diltiazem HCl (Cardizem Cd) 120 mg PO DAILY [facility] Last Admin: 01/18/17 08:19 Dose: 120 mg Diltiazem HCl (Cardizem) 60 mg PO ONETIME ONE Stop: 01/18/17 12:16 Last Admin: 01/18/17 13:20 Dose: 60 mg Diltiazem HCl (Cardizem) 30 mg PO ONETIME ONE Stop: 01/18/17 12:16 Last Admin: 01/18/17 13:20 Dose: 30 mg Diltiazem HCl (Cardizem Cd) 240 mg PO DAILY [facility] Diltiazem HCl (Cardizem Cd) 120 mg PO DAILY [facility] Last Admin: 01/20/17 08:01 Dose: 120 mg Diltiazem HCl (Diltiazem) 10 mg IVPUSH ONETIME ONE Stop: 01/19/17 11:36 Diltiazem HCl (Cardizem Ir) 60 mg PO Q6HR [facility] Last Admin: 01/23/17 12:01 Dose: 60 mg Famotidine (Pepcid) 20 mg IVPUSH BID [facility] Stop: 01/16/17 23:59 Last Admin: 01/16/17 20:18 Dose: 20 mg Famotidine (Pepcid) 20 mg IVPUSH DAILY [facility] Last Admin: 01/22/17 08:23 Dose: 20 mg Furosemide (Lasix) 20 mg PO DAILY PRN PRN Reason: Edema Furosemide (Lasix) 20 mg PO ONETIME ONE Stop: 01/17/17 07:31 Last Admin: 01/17/17 08:48 Dose: 20 mg Furosemide (Lasix) 20 mg IVPUSH NOW ONE Stop: 01/23/17 14:48 Last Admin: 01/23/17 14:10 Dose: Not Given Furosemide (Lasix) 10 mg IVPUSH NOW ONE Stop: 01/26/17 14:35 Last Admin: 01/26/17 14:51 Dose: 10 mg Gabapentin (Neurontin) 100 mg PO DAILY [facility] Last Admin: 01/12/17 09:10 Dose: 100 mg Promethazine HCl 12.5 mg/ (Sodium Chloride) 50.5 mls @ 100 mls/hr IV Q6H PRN PRN Reason: Nausea/Vomiting Magnesium Sulfate 2 gm/ Premix 50 mls @ 25 mls/hr IV ONETIME ONE Stop: 01/13/17 12:59 Last Admin: 01/13/17 12:25 Dose: 25 mls/hr Dextrose/Sodium Chloride (Dextrose 5%-Normal Saline) 1,000 mls @ 75 mls/hr IV ASDIRECTED [facility] Last Admin: 01/17/17 04:53 Dose: 75 mls/hr Magnesium Sulfate 2 gm/ Premix 50 mls @ 25 mls/hr IV ONETIME ONE Stop: 01/15/17 10:59 Last Admin: 01/15/17 09:36 Dose: 25 mls/hr Azithromycin 500 mg/ Sodium (Chloride) 250 mls @ 250 mls/hr IV ONETIME ONE Stop: 01/15/17 20:25 Last Admin: 01/15/17 20:40 Dose: 250 mls/hr Ceftriaxone Sodium 1 gm/ (Sodium Chloride) 100 mls @ 200 mls/hr IV ONETIME ONE Stop: 01/15/17 21:00 Last Admin: 01/15/17 21:52 Dose: 200 mls/hr Ceftriaxone Sodium 1 gm/ (Sodium Chloride) 100 mls @ 200 mls/hr IV Q24H [facility] Last Admin: 01/16/17 19:36 Dose: Not Given Ceftriaxone Sodium 1 gm/ (Sodium Chloride) 100 mls @ 200 mls/hr IV Q24H [facility] Last Admin: 01/17/17 11:11 Dose: 200 mls/hr Azithromycin 500 mg/ Sodium (Chloride) 250 mls @ 250 mls/hr IV Q24H [facility] Last Admin: 01/17/17 10:41 Dose: Not Given Azithromycin 500 mg/ Sodium (Chloride) 250 mls @ 250 mls/hr IV ONETIME ONE Stop: 01/16/17 14:44 Last Admin: 01/16/17 14:20 Dose: 250 mls/hr Metronidazole 500 mg/ Premix 100 mls @ 100 mls/hr IV Q8H [facility] Last Admin: 01/20/17 09:46 Dose: 100 mls/hr Ceftriaxone Sodium 1 gm/ (Dextrose/Water) 100 mls @ 200 mls/hr IV Q24H [facility] Ceftriaxone Sodium 1 gm/ (Dextrose/Water) 100 mls @ 200 mls/hr IV Q24H [facility] Last Admin: 01/18/17 11:29 Dose: 200 mls/hr Piperacillin Sod/Tazobactam (Sod 4.5 gm/ Dextrose/Water) 100 mls @ 200 mls/hr IV ONETIME ONE Stop: 01/18/17 12:29 Last Admin: 01/18/17 13:21 Dose: 200 mls/hr Piperacillin Sod/Tazobactam (Sod 4.5 gm/ Dextrose/Water) 100 mls @ 25 mls/hr IV Q8H [facility] Stop: 01/20/17 17:00 Last Admin: 01/20/17 11:44 Dose: 25 mls/hr Esmolol HCl (Brevibloc In Ns Premix) 2.5 gm in 250 mls @ 0 mls/hr IV TITRATE MICHELLE; 50 MCG/KG/MIN PRN Reason: Protocol Diltiazem HCl 125 mg/ Sodium (Chloride) 125 mls @ 5 mls/hr IV TITRATE MICHELLE; 5 MG /HR PRN Reason: Protocol Diltiazem HCl 125 mg/ Sodium (Chloride) 125 mls @ 2.5 mls/hr IV TITRATE MICHELLE; 2.5 MG/HR PRN Reason: Protocol Last Titration: 01/20/17 09:29 Dose: 0 mg/hr, 0 mls/hr Ampicillin Sodium/Sulbactam (Sodium 1.5 gm/ Sodium Chloride) 100 mls @ 200 mls/ hr IV Q12H [facility] Last Admin: 01/21/17 08:59 Dose: 200 mls/hr Potassium Chloride 10 meq/ (Premix) 100 mls @ 100 mls/hr IV Q1H [facility] Stop: 01/21/17 12:59 Last Admin: 01/21/17 12:06 Dose: Not Given Potassium Chloride/Dextrose/Sod Cl (D5 Ns With 20 Meq Kcl) 1,000 mls @ 75 mls/ hr IV ASDIRECTED [facility] Last Admin: 01/22/17 00:29 Dose: 75 mls/hr Potassium Chloride 10 meq/ (Premix) 100 mls @ 100 mls/hr IV Q1H [facility] Stop: 01/21/17 11:29 Last Admin: 01/21/17 11:40 Dose: 100 mls/hr Piperacillin Sod/Tazobactam (Sod 4.5 gm/ Dextrose/Water) 100 mls @ 25 mls/hr IV Q8H [facility] Last Admin: 01/25/17 05:59 Dose: 25 mls/hr Ampicillin Sodium/Sulbactam (Sodium 1.5 gm/ Sodium Chloride) 100 mls @ 200 mls/ hr IV ONETIME ONE Stop: 01/21/17 14:31 Last Admin: 01/21/17 15:40 Dose: 200 mls/hr Magnesium Sulfate 2 gm/ Premix 50 mls @ 25 mls/hr IV ONETIME ONE Stop: 01/23/17 11:45 Last Admin: 01/23/17 12:00 Dose: 25 mls/hr Levalbuterol HCl (Xopenex) 1.25 mg INH QIDRT [facility] Last Admin: 01/23/17 10:09 Dose: 1.25 mg Lisinopril (Prinivil) 20 mg PO DAILY [facility] Last Admin: 01/23/17 11:05 Dose: Not Given Lisinopril (Prinivil) 10 mg PO DAILY [facility] Lisinopril (Prinivil) 10 mg PO BID [facility] Last Admin: 01/26/17 09:25 Dose: Not Given Lorazepam (Ativan) 0.25 mg IV Q6H PRN PRN Reason: Anxiety Last Admin: 01/17/17 05:53 Dose: 0.25 mg Lorazepam (Ativan) 0.25 mg IV ONETIME ONE Stop: 01/18/17 09:16 Last Admin: 01/18/17 09:29 Dose: 0.25 mg Magnesium Oxide (Magnesium Oxide) 400 mg PO ONETIME ONE Stop: 01/13/17 08:01 Last Admin: 01/13/17 12:13 Dose: Not Given Magnesium Oxide (Magnesium Oxide) 800 mg PO ONETIME ONE Stop: 01/18/17 08:31 Last Admin: 01/18/17 08:24 Dose: 800 mg Magnesium Sulfate (Pharmacy To Dose - Magnesium Replacement) 1 dose .XX ASDIRECTED [facility] Metoprolol Succinate (Toprol Xl) 50 mg PO DAILY [facility] Last Admin: 01/18/17 08:22 Dose: 50 mg Metoprolol Succinate (Toprol Xl) 100 mg PO BID [facility] Last Admin: 01/20/17 20:23 Dose: 100 mg Metoprolol Succinate (Toprol Xl) 50 mg PO BID [facility] Last Admin: 01/23/17 10:58 Dose: Not Given Metoprolol Succinate (Toprol Xl) 25 mg PO ONETIME ONE Stop: 01/23/17 09:31 Last Admin: 01/23/17 09:30 Dose: 25 mg Modafinil (Provigil) 50 mg PO DAILY [facility] Last Admin: 01/15/17 09:26 Dose: 50 mg Modafinil (Provigil) 100 mg PO DAILY [facility] Last Admin: 01/17/17 08:47 Dose: 100 mg Ondansetron HCl (Zofran Odt) 4 mg PO Q6H [facility] Last Admin: 01/21/17 12:07 Dose: Not Given Phenytoin Sodium (Phenytoin) 100 mg PO BID [facility] Last Admin: 01/15/17 20:46 Dose: Not Given Potassium Chloride (Pharmacy To Dose - Potassium Replacement) 1 dose .XX ASDIRECTED [facility] Propofol (Diprivan 20 Ml) Confirm Administered Dose 200 mg .ROUTE .STK-MED ONE Stop: 01/21/17 12:19 Quetiapine Fumarate (Seroquel) 25 mg PO DAILY [facility] Last Admin: 01/15/17 09:26 Dose: 25 mg Quetiapine Fumarate (Seroquel) 25 mg PO ONETIME ONE Stop: 01/18/17 11:05 Last Admin: 01/18/17 11:23 Dose: 25 mg Quetiapine Fumarate (Seroquel) 25 mg PO DAILY [facility] Last Admin: 01/24/17 09:26 Dose: 25 mg Saccharomyces Boulardii (Florastor) 250 mg PO DAILY [facility] Last Admin: 01/17/17 08:31 Dose: 250 mg - Exam Quality Assessment: DVT Prophylaxis General: Alert, Oriented, Cooperative, No Acute Distress HEENT: Pupils Equal, Pupils Reactive, EOMI Neck: Supple, Trachea Midline Lungs: Normal Respiratory Effort Cardiovascular: Regular Rate GI/Abdominal Exam: Normal Bowel Sounds, Soft, Non-Tender, No Organomegaly, No Distention (Female) Exam: Deferred Extremities: Normal Inspection Skin: Warm Neurological: No New Focal Deficit Psy/Mental Status: Alert, Normal Affect, Normal Mood - Problem List Review Problem List Initiated/Reviewed/Updated: Yes - My Orders Last 24 Hours: My Active Orders 01/27/17 21:00 Lisinopril [Prinivil] 10 mg PO BEDTIME 01/27/17 Breakfast National Dysphagia Diet [DIET] 01/28/17 05:00 BMP [BASIC METABOLIC PANEL,BMP] [CHEM] DAILY CBC WITH AUTO DIFF [HEME] DAILY - Plan Plan:: Assessment/Plan: Acute: AMS/Delirium with hallucinations but less agitation/anxiety; resolved has occasional bouts of hallucinations - Hx of seizure disorder s/p hemorrhagic stroke in the past - She does not follow a Neurologist - 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 Continue florastor - Supplemental O2, Routine RT care and Bronchodilators - Sputum Cx/Sx--unable to obtain as patient does not understand/unable to follow instructions; as has been on abx tx for days now will cxl orders - WBC is now normal but CRP continues to go up - Cont SHEARING MACHINE OPERATOR evaluation ongoing daily Small Left Side Pleural Effusion, Stable - IS as directed- if able to cooperate - Aspiration precaution - Serial CXR as needed; will repeat CXR in AM - BNP elevated, diurese as needed. 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 Schmidt, Neurosurgeon: recommend CT scan in 2 weeks then follow up in the office - Continue Neuro check Q shift - Continue to Hold Warfarin and ASA - Follow up MRI: essentially the same from previous study; no acute new abnormal findings - Follow up head CT done today with stable findings with areas of micro bleeding within prior noted areas of density/subdural bleeds. - Reviewed with Dr. Nesbitt, will not resume anticoagulant on discharge based on these findings. Generalized Weakness, Unchanged - Likely 2/2 above and poor intake - Continue PT/OT - Thyroid panel: normal - Vit D level: low, started supplement as below - We offered Vibra for stroke rehab and her family was receptive Vitamin D-Deficiency, New - Vit D level 21 (low) - Continue Vit D supplement Subtherapeutic INR, Unchanged---Holding warfarin due to continued areas of micro bleeding on head CT - Last INR 1.18 - Continue to hold off Warfarin/ASA due to brain bleed - Recommend switching to DOACs (defer to PCP after discharge) Right Shoulder Pain, New - S/p Fall - Tender with palpation and pain with active movement - XR with 3 views to r/o acute fracture is negative - PRN pain medication; PT/OT Poor Nutritional Status - She is able to swallow/eat and drink but not meeting her nutritional requirement - She is breaking muscle down at this point and not able to do PT/OT - POD 1: PEG tube placement, TF started and tolerated. Resolved: S/P Fall at [facility] - High Fall Risk - Polypharmacy - Fall precautions in place Chronic: Impaired Vision HTN- stable, 120-130's/80-90's HLD- will check lipid panel Atrial Fibrillation via Holter Monitor ; controlled at the time transferred out of ICU; short acting Cardizem is being used;. Mitral Valve Insufficiency GERD- GI prophylax OA/DJD Osteoporosis Hypothyroidism- stable Trigerminal Neuralgia, Continue Carbamezapin Inflammatory Spondylopathy Hx/o DVT/TIA Hx/o Brain Bleed Hx/o seizure s/p hemorrhagic stroke Anxiety Plan: Disposition is pending, awaiting input from Brittney Adjusted Seroquel 12.5 mg daily Changed BB to short acting, did not take oral meds well today. Routine AM Labs Continue Neuro check Q4, SHEARING MACHINE OPERATOR and PT/OT DVT PPx: SCDs GI prophylaxis: H2B IV BID Advance Aspiration/Fall/Seizure Precautions Additional orders as above CM/SW for d/c planning- Vibra with PEG Tube for short tem use until her nutritional requirement is met Code Status: DNR/DNI Prognosis remains guarded. LOS > 96 hours due to slow response to treatment; awaiting placement to SNF/[facility] re[facility] in [place].
[2017-01-27] MEDS: Acetaminophen 325 MG Tab PO PRN ×2 (13:38→21:58)
[2017-01-27] MEDS: Lisinopril 10 MG Tab PO SCH (21:57)
[2017-01-27] MEDS: Simvastatin 20 MG Tab PO SCH (21:58)
[2017-01-28] MEDS: Diltiazem IR 30 MG Tab PO SCH ×4 (01:07→17:54)
[2017-01-28] MEDS: Metoprolol Tartrate 50 MG Tab PO SCH ×3 (06:00→21:31)
[2017-01-28] MEDS: Levothyroxine 88 MCG Tab PO SCH (06:00)
--- NOTE | 2017-01-28 08:59 | PCM.PN ---
- General Info Date of Service: 01/28/17 Admission Dx/Problem (Free Text): Brain Bleed and Stroke Subjective Update: Follow up Functional Status: Reports: Pain Controlled, Tolerating Diet, Ambulating, Urinating. Denies: New Symptoms - Review of Systems General: Denies: Fever, Chills HEENT: Reports: No Symptoms. Denies: Visual Changes Gastrointestinal: Denies: Abdominal Pain, Nausea, Vomiting Genitourinary: Reports: No Symptoms Musculoskeletal: Reports: No Symptoms Skin: Reports: No Symptoms Neurological: Reports: Weakness, Gait Disturbance. Denies: Confusion, Difficulty Walking Psychiatric: Denies: Depression, Anxiety, Agitation, Hallucinations Systems Review Comment:: No significant overnight or acute issues. She appears relatively well. She is alert/awake and reasonable. She has been ambulating and intake has considerably improved. She feels good and has no complaints. - Patient Data Vitals - Most Recent: Last Vital Signs Temp 36.8 C 01/28/17 04:10 Pulse 88 01/28/17 06:00 Resp 16 01/28/17 04:10 BP 128/64 01/28/17 06:00 Pulse Ox 100 01/28/17 04:10 Weight - Most Recent: 55.384 kg I&O - Last 24 Hours: Intake & Output 01/27/17 01/28/17 01/28/17 22:59 06:59 14:59 Intake Total 1140 920 Output Total 300 700 Balance 840 220 Lab Results Last 24 Hours: Laboratory Results - last 24 hr 01/27/17 01/27/17 01/28/17 Range/Units 11:39 22:20 05:15 WBC 8.02 (3.98-10.04) K/mm3 RBC 3.60 L (3.98-5.22) M/mm3 Hgb 10.7 L (11.2-15.7) gm/L Hct 33.3 L (34.1-44.9) % MCV 92.5 (79.4-94.8) fl MCH 29.7 (25.6-32.2) pg MCHC 32.1 L (32.2-35.5) g/dl RDW Std Deviation 50.0 H (36.4-46.3) fL Plt Count 424 H (182-369) K/mm3 MPV 10.2 (9.4-12.3) fl Neut % (Auto) 54.4 (34.0-71.1) % Lymph % (Auto) 20.3 (19.3-51.7) % [place] % (Auto) 16.0 H (4.7-12.5) % Eos % (Auto) 7.6 H (0.7-5.8) Baso % (Auto) 1.0 (0.1-1.2) % Neut # (Auto) 4.36 (1.56-6.13) K/mm3 Lymph # (Auto) 1.63 (1.18-3.74) K/mm3 [place] # (Auto) 1.28 H (0.24-0.36) K/mm3 Eos # (Auto) 0.61 H (0.04-0.36) K/mm3 Baso # (Auto) 0.08 (0.01-0.08) K/mm3 Manual Slide Review Abnormal smear Sodium (136-145) mEq/L Potassium (3.5-5.1) mEq/L Chloride (98-107) mEq/L Carbon Dioxide (21-32) mEq/L Anion Gap (5-15) BUN (7-18) mg/dL Creatinine (0.55-1.02) mg/dL Est Cr Clr Drug Dosing mL/min Estimated GFR (MDRD) (>60) mL/min BUN/Creatinine Ratio (14-18) Glucose (83-115) mg/dL POC Glucose 100 142 H (83-110) mg/dL Calcium (8.5-10.1) mg/dL 01/28/17 Range/Units 05:15 WBC (3.98-10.04) K/mm3 RBC (3.98-5.22) M/mm3 Hgb (11.2-15.7) gm/L Hct (34.1-44.9) % MCV (79.4-94.8) fl MCH (25.6-32.2) pg MCHC (32.2-35.5) g/dl RDW Std Deviation (36.4-46.3) fL Plt Count (182-369) K/mm3 MPV (9.4-12.3) fl Neut % (Auto) (34.0-71.1) % Lymph % (Auto) (19.3-51.7) % [place] % (Auto) (4.7-12.5) % Eos % (Auto) (0.7-5.8) Baso % (Auto) (0.1-1.2) % Neut # (Auto) (1.56-6.13) K/mm3 Lymph # (Auto) (1.18-3.74) K/mm3 [place] # (Auto) (0.24-0.36) K/mm3 Eos # (Auto) (0.04-0.36) K/mm3 Baso # (Auto) (0.01-0.08) K/mm3 Manual Slide Review Sodium 140 (136-145) mEq/L Potassium 4.6 (3.5-5.1) mEq/L Chloride 107 (98-107) mEq/L Carbon Dioxide 25 (21-32) mEq/L Anion Gap 12.6 (5-15) BUN 26 H (7-18) mg/dL Creatinine 1.0 (0.55-1.02) mg/dL Est Cr Clr Drug Dosing 33.41 mL/min Estimated GFR (MDRD) 53 (>60) mL/min BUN/Creatinine Ratio 26.0 H (14-18) Glucose 111 (83-115) mg/dL POC Glucose (83-110) mg/dL Calcium 9.3 (8.5-10.1) mg/dL Med Orders - Current: Current Medications Acetaminophen (Tylenol) 650 mg PO Q4H PRN PRN Reason: Pain (Mild 1-3)/fever Last Admin: 01/27/17 21:58 Dose: 650 mg Acetaminophen (Tylenol) 650 mg RECTAL Q4H PRN PRN Reason: Pain/Fever Hydrocodone Bitart/Acetaminophen ([place] 325-5 Mg) 1 tab PO Q4H PRN PRN Reason: Pain (moderate 4-6) Bisacodyl (Dulcolax) 5 mg PO DAILY PRN PRN Reason: Constipation Last Admin: 01/19/17 04:58 Dose: 5 mg Bisacodyl (Dulcolax) 10 mg RECTAL DAILY PRN PRN Reason: Constipation Last Admin: 01/15/17 06:31 Dose: 10 mg Carbamazepine (Tegretol Tab) 200 mg PO BID [facility] Last Admin: 01/27/17 21:58 Dose: 200 mg Cholecalciferol (Vitamin D3) 2,000 units PO DAILY [facility] Last Admin: 01/27/17 08:03 Dose: 2,000 units Diltiazem HCl (Cardizem Ir) 30 mg PO Q6HR [facility] Last Admin: 01/28/17 06:00 Dose: 30 mg Docusate Sodium (Colace) 100 mg PO BID PRN PRN Reason: Constipation Famotidine (Pepcid) 20 mg GTUBE DAILY [facility] Last Admin: 01/27/17 08:03 Dose: 20 mg Hydralazine HCl (Apresoline) 10 mg IVPUSH Q4H PRN PRN Reason: Hypertension Hydromorphone HCl (Dilaudid) 0.25 mg IVPUSH Q2H PRN PRN Reason: Pain (severe 7-10) Last Admin: 01/18/17 19:12 Dose: 0.25 mg Insulin Aspart (Novolog) 0 unit SUBCUT [facility] PRN Reason: Protocol Last Admin: 01/27/17 23:10 Dose: Not Given Levothyroxine Sodium (Synthroid) 88 mcg PO ACBRK [facility] Last Admin: 01/28/17 06:00 Dose: 88 mcg Lisinopril (Prinivil) 10 mg PO BEDTIME [facility] Last Admin: 01/27/17 21:57 Dose: Not Given Lorazepam (Ativan) 2 mg IVPUSH Q4H PRN PRN Reason: Seizures Lorazepam (Ativan) 0.25 mg IVPUSH Q6H PRN PRN Reason: Anxiety Last Admin: 01/23/17 01:07 MDT Dose: 0.25 mg Metoprolol Tartrate (Lopressor) 5 mg IVPUSH Q4H PRN PRN Reason: Tachycardia Last Admin: 01/23/17 06:37 Dose: 5 mg Metoprolol Tartrate (Lopressor) 50 mg PO Q8HR [facility] Last Admin: 01/28/17 06:00 Dose: 50 mg Ondansetron HCl (Zofran) 4 mg IV Q6H PRN PRN Reason: Nausea/Vomiting Last Admin: 01/14/17 09:42 Dose: 4 mg Cyclosporine ( Restasis) Ophth Solution 0 each EYEBOTH BID [facility] Last Admin: 01/27/17 22:02 Dose: 1 each [Systane 0.3-0.4% Eye Drops] 1 D Own Med 0 each EYEBOTH BID [facility] Last Admin: 01/27/17 22:02 Dose: 1 each Polyethylene Glycol (Miralax) 17 gm PO DAILY PRN PRN Reason: Constipation Last Admin: 01/14/17 06:39 Dose: 17 gm Quetiapine Fumarate (Seroquel) 12.5 mg PO DAILY [facility] Last Admin: 01/27/17 08:04 Dose: 12.5 mg Saccharomyces Boulardii (Florastor) 250 mg PO BID [facility] Last Admin: 01/27/17 21:57 Dose: 250 mg Senna/Docusate Sodium (Senna Plus) 1 tab PO BID PRN PRN Reason: Constipation Last Admin: 01/19/17 08:58 Dose: 1 tab Simvastatin (Zocor) 20 mg PO BEDTIME [facility] Last Admin: 01/27/17 21:58 Dose: 20 mg Temazepam (Restoril) 7.5 mg PO BEDTIME PRN PRN Reason: Sleep Last Admin: 01/24/17 02:39 Dose: 7.5 mg Discontinued Medications Albuterol/Ipratropium (Duoneb 3.0-0.5 Mg/3 Ml) 3 ml NEB Q4H PRN PRN Reason: Shortness Of Breath/wheezing Bacitracin (Bacitracin Oint) Confirm Administered Dose 15 gm .ROUTE .STK-MED ONE Stop: 01/21/17 14:14 Last Admin: 01/21/17 14:10 Dose: 15 gm Barium Sulfate (E-Z-Hd) 340 gm PO ONETIME ONE Stop: 01/25/17 08:45 Last Admin: 01/25/17 16:24 Dose: Not Given Barium Sulfate (E-Z-Paste) 454 gm PO ONETIME ONE Stop: 01/25/17 08:45 Last Admin: 01/25/17 16:24 Dose: Not Given Barium Sulfate (Liquid E-Z Paque) 355 ml PO PREPRO ONE Stop: 01/25/17 08:45 Last Admin: 01/25/17 16:24 Dose: Not Given Bumetanide (Bumex) 0.5 mg IVPUSH ONETIME ONE Stop: 01/17/17 21:01 Last Admin: 01/17/17 22:13 Dose: 0.5 mg Bumetanide (Bumex) 1 mg IVPUSH ONETIME ONE Stop: 01/18/17 12:06 Last Admin: 01/18/17 13:20 Dose: 1 mg Bumetanide (Bumex) 0.5 mg IVPUSH ONETIME ONE Stop: 01/19/17 07:01 Bumetanide (Bumex) 1 mg IVPUSH ONETIME ONE Stop: 01/19/17 07:01 Last Admin: 01/19/17 06:15 Dose: 1 mg Carbamazepine (Tegretol) 300 mg PO TID [facility] Last Admin: 01/12/17 16:28 Dose: 300 mg Carbamazepine (Tegretol) 200 mg PO TID [facility] Last Admin: 01/12/17 20:09 Dose: 200 mg Carbamazepine (Tegretol Tab) 200 mg PO TID [facility] Last Admin: 01/14/17 08:18 Dose: 200 mg Carbamazepine (Tegretol) 150 mg PO TID [facility] Last Admin: 01/14/17 16:01 Dose: Not Given Carbamazepine (Tegretol) 150 mg PO BID [facility] Last Admin: 01/17/17 08:45 Dose: 150 mg Diazepam (Valium.) 5 mg PO ONETIME ONE Stop: 01/14/17 11:07 Last Admin: 01/14/17 11:27 Dose: 5 mg Diltiazem HCl (Cardizem Cd) 120 mg PO DAILY [facility] Last Admin: 01/18/17 08:19 Dose: 120 mg Diltiazem HCl (Cardizem) 60 mg PO ONETIME ONE Stop: 01/18/17 12:16 Last Admin: 01/18/17 13:20 Dose: 60 mg Diltiazem HCl (Cardizem) 30 mg PO ONETIME ONE Stop: 01/18/17 12:16 Last Admin: 01/18/17 13:20 Dose: 30 mg Diltiazem HCl (Cardizem Cd) 240 mg PO DAILY [facility] Diltiazem HCl (Cardizem Cd) 120 mg PO DAILY [facility] Last Admin: 01/20/17 08:01 Dose: 120 mg Diltiazem HCl (Diltiazem) 10 mg IVPUSH ONETIME ONE Stop: 01/19/17 11:36 Diltiazem HCl (Cardizem Ir) 60 mg PO Q6HR [facility] Last Admin: 01/23/17 12:01 Dose: 60 mg Famotidine (Pepcid) 20 mg IVPUSH BID [facility] Stop: 01/16/17 23:59 Last Admin: 01/16/17 20:18 Dose: 20 mg Famotidine (Pepcid) 20 mg IVPUSH DAILY [facility] Last Admin: 01/22/17 08:23 Dose: 20 mg Furosemide (Lasix) 20 mg PO DAILY PRN PRN Reason: Edema Furosemide (Lasix) 20 mg PO ONETIME ONE Stop: 01/17/17 07:31 Last Admin: 01/17/17 08:48 Dose: 20 mg Furosemide (Lasix) 20 mg IVPUSH NOW ONE Stop: 01/23/17 14:48 Last Admin: 01/23/17 14:10 Dose: Not Given Furosemide (Lasix) 10 mg IVPUSH NOW ONE Stop: 01/26/17 14:35 Last Admin: 01/26/17 14:51 Dose: 10 mg Gabapentin (Neurontin) 100 mg PO DAILY [facility] Last Admin: 01/12/17 09:10 Dose: 100 mg Promethazine HCl 12.5 mg/ (Sodium Chloride) 50.5 mls @ 100 mls/hr IV Q6H PRN PRN Reason: Nausea/Vomiting Magnesium Sulfate 2 gm/ Premix 50 mls @ 25 mls/hr IV ONETIME ONE Stop: 01/13/17 12:59 Last Admin: 01/13/17 12:25 Dose: 25 mls/hr Dextrose/Sodium Chloride (Dextrose 5%-Normal Saline) 1,000 mls @ 75 mls/hr IV ASDIRECTED [facility] Last Admin: 01/17/17 04:53 Dose: 75 mls/hr Magnesium Sulfate 2 gm/ Premix 50 mls @ 25 mls/hr IV ONETIME ONE Stop: 01/15/17 10:59 Last Admin: 01/15/17 09:36 Dose: 25 mls/hr Azithromycin 500 mg/ Sodium (Chloride) 250 mls @ 250 mls/hr IV ONETIME ONE Stop: 01/15/17 20:25 Last Admin: 01/15/17 20:40 Dose: 250 mls/hr Ceftriaxone Sodium 1 gm/ (Sodium Chloride) 100 mls @ 200 mls/hr IV ONETIME ONE Stop: 01/15/17 21:00 Last Admin: 01/15/17 21:52 Dose: 200 mls/hr Ceftriaxone Sodium 1 gm/ (Sodium Chloride) 100 mls @ 200 mls/hr IV Q24H [facility] Last Admin: 01/16/17 19:36 Dose: Not Given Ceftriaxone Sodium 1 gm/ (Sodium Chloride) 100 mls @ 200 mls/hr IV Q24H [facility] Last Admin: 01/17/17 11:11 Dose: 200 mls/hr Azithromycin 500 mg/ Sodium (Chloride) 250 mls @ 250 mls/hr IV Q24H [facility] Last Admin: 01/17/17 10:41 Dose: Not Given Azithromycin 500 mg/ Sodium (Chloride) 250 mls @ 250 mls/hr IV ONETIME ONE Stop: 01/16/17 14:44 Last Admin: 01/16/17 14:20 Dose: 250 mls/hr Metronidazole 500 mg/ Premix 100 mls @ 100 mls/hr IV Q8H [facility] Last Admin: 01/20/17 09:46 Dose: 100 mls/hr Ceftriaxone Sodium 1 gm/ (Dextrose/Water) 100 mls @ 200 mls/hr IV Q24H [facility] Ceftriaxone Sodium 1 gm/ (Dextrose/Water) 100 mls @ 200 mls/hr IV Q24H [facility] Last Admin: 01/18/17 11:29 Dose: 200 mls/hr Piperacillin Sod/Tazobactam (Sod 4.5 gm/ Dextrose/Water) 100 mls @ 200 mls/hr IV ONETIME ONE Stop: 01/18/17 12:29 Last Admin: 01/18/17 13:21 Dose: 200 mls/hr Piperacillin Sod/Tazobactam (Sod 4.5 gm/ Dextrose/Water) 100 mls @ 25 mls/hr IV Q8H [facility] Stop: 01/20/17 17:00 Last Admin: 01/20/17 11:44 Dose: 25 mls/hr Esmolol HCl (Brevibloc In Ns Premix) 2.5 gm in 250 mls @ 0 mls/hr IV TITRATE MICHELLE; 50 MCG/KG/MIN PRN Reason: Protocol Diltiazem HCl 125 mg/ Sodium (Chloride) 125 mls @ 5 mls/hr IV TITRATE MICHELLE; 5 MG /HR PRN Reason: Protocol Diltiazem HCl 125 mg/ Sodium (Chloride) 125 mls @ 2.5 mls/hr IV TITRATE MICHELLE; 2.5 MG/HR PRN Reason: Protocol Last Titration: 01/20/17 09:29 Dose: 0 mg/hr, 0 mls/hr Ampicillin Sodium/Sulbactam (Sodium 1.5 gm/ Sodium Chloride) 100 mls @ 200 mls/ hr IV Q12H [facility] Last Admin: 01/21/17 08:59 Dose: 200 mls/hr Potassium Chloride 10 meq/ (Premix) 100 mls @ 100 mls/hr IV Q1H [facility] Stop: 01/21/17 12:59 Last Admin: 01/21/17 12:06 Dose: Not Given Potassium Chloride/Dextrose/Sod Cl (D5 Ns With 20 Meq Kcl) 1,000 mls @ 75 mls/ hr IV ASDIRECTED [facility] Last Admin: 01/22/17 00:29 Dose: 75 mls/hr Potassium Chloride 10 meq/ (Premix) 100 mls @ 100 mls/hr IV Q1H [facility] Stop: 01/21/17 11:29 Last Admin: 01/21/17 11:40 Dose: 100 mls/hr Piperacillin Sod/Tazobactam (Sod 4.5 gm/ Dextrose/Water) 100 mls @ 25 mls/hr IV Q8H [facility] Last Admin: 01/25/17 05:59 Dose: 25 mls/hr Ampicillin Sodium/Sulbactam (Sodium 1.5 gm/ Sodium Chloride) 100 mls @ 200 mls/ hr IV ONETIME ONE Stop: 01/21/17 14:31 Last Admin: 01/21/17 15:40 Dose: 200 mls/hr Magnesium Sulfate 2 gm/ Premix 50 mls @ 25 mls/hr IV ONETIME ONE Stop: 01/23/17 11:45 Last Admin: 01/23/17 12:00 Dose: 25 mls/hr Levalbuterol HCl (Xopenex) 1.25 mg INH QIDRT [facility] Last Admin: 01/23/17 10:09 Dose: 1.25 mg Lisinopril (Prinivil) 20 mg PO DAILY [facility] Last Admin: 01/23/17 11:05 Dose: Not Given Lisinopril (Prinivil) 10 mg PO DAILY [facility] Lisinopril (Prinivil) 10 mg PO BID [facility] Last Admin: 01/26/17 09:25 Dose: Not Given Lorazepam (Ativan) 0.25 mg IV Q6H PRN PRN Reason: Anxiety Last Admin: 01/17/17 05:53 Dose: 0.25 mg Lorazepam (Ativan) 0.25 mg IV ONETIME ONE Stop: 01/18/17 09:16 Last Admin: 01/18/17 09:29 Dose: 0.25 mg Magnesium Oxide (Magnesium Oxide) 400 mg PO ONETIME ONE Stop: 01/13/17 08:01 Last Admin: 01/13/17 12:13 Dose: Not Given Magnesium Oxide (Magnesium Oxide) 800 mg PO ONETIME ONE Stop: 01/18/17 08:31 Last Admin: 01/18/17 08:24 Dose: 800 mg Magnesium Sulfate (Pharmacy To Dose - Magnesium Replacement) 1 dose .XX ASDIRECTED [facility] Metoprolol Succinate (Toprol Xl) 50 mg PO DAILY [facility] Last Admin: 01/18/17 08:22 Dose: 50 mg Metoprolol Succinate (Toprol Xl) 100 mg PO BID [facility] Last Admin: 01/20/17 20:23 Dose: 100 mg Metoprolol Succinate (Toprol Xl) 50 mg PO BID [facility] Last Admin: 01/23/17 10:58 Dose: Not Given Metoprolol Succinate (Toprol Xl) 25 mg PO ONETIME ONE Stop: 01/23/17 09:31 Last Admin: 01/23/17 09:30 Dose: 25 mg Modafinil (Provigil) 50 mg PO DAILY [facility] Last Admin: 01/15/17 09:26 Dose: 50 mg Modafinil (Provigil) 100 mg PO DAILY [facility] Last Admin: 01/17/17 08:47 Dose: 100 mg Ondansetron HCl (Zofran Odt) 4 mg PO Q6H [facility] Last Admin: 01/21/17 12:07 Dose: Not Given Phenytoin Sodium (Phenytoin) 100 mg PO BID [facility] Last Admin: 01/15/17 20:46 Dose: Not Given Potassium Chloride (Pharmacy To Dose - Potassium Replacement) 1 dose .XX ASDIRECTED [facility] Propofol (Diprivan 20 Ml) Confirm Administered Dose 200 mg .ROUTE .STK-MED ONE Stop: 01/21/17 12:19 Quetiapine Fumarate (Seroquel) 25 mg PO DAILY [facility] Last Admin: 01/15/17 09:26 Dose: 25 mg Quetiapine Fumarate (Seroquel) 25 mg PO ONETIME ONE Stop: 01/18/17 11:05 Last Admin: 01/18/17 11:23 Dose: 25 mg Quetiapine Fumarate (Seroquel) 25 mg PO DAILY [facility] Last Admin: 01/24/17 09:26 Dose: 25 mg Saccharomyces Boulardii (Florastor) 250 mg PO DAILY [facility] Last Admin: 01/17/17 08:31 Dose: 250 mg - Exam General: Alert, Cooperative, No Acute Distress HEENT: Pupils Equal, Pupils Reactive, Mucous Membr. Moist/[place] Neck: Supple, Trachea Midline, No JVD Lungs: Normal Respiratory Effort, Decreased Breath Sounds Cardiovascular: Regular Rate, Regular Rhythm GI/Abdominal Exam: Normal Bowel Sounds, Non-Tender, No Organomegaly, No Distention, No Abnormal Bruit (Female) Exam: Deferred Back Exam: Normal Inspection, Decreased Range of Motion Extremities: Normal Inspection, Normal Range of Motion, Non-Tender, No Pedal Edema, Normal Capillary Refill Peripheral Pulses: 2+: Dorsalis Pedis (L), Dorsalis Pedis (R) Skin: Warm, Dry, Intact Neurological: No New Focal Deficit Psy/Mental Status: Alert, Normal Affect, Normal Mood - Problem List Review Problem List Initiated/Reviewed/Updated: Yes - Plan Plan:: Assessment/Plan: Acute: Delirium with hallucinations but less agitation/anxiety, Improved - Hx of seizure disorder s/p hemorrhagic stroke in the past - MENTAL HEALTH THERAPIST cont to follow - Ativan PRN for restlessness - Continue Seroquel 21.5 mg po daily Generalized Weakness, Unchanged - Likely 2/2 above and poor intake - Continue PT/OT - Thyroid panel: normal - Vit D level: low, started supplement as below Vitamin D-Deficiency, New - Vit D level 21 (low) - Continue Vit D supplement Poor Nutritional Status - She is able to swallow/eat and drink but not meeting her nutritional requirement - POD 7: PEG tube placement, TF started and tolerated. Atrial Fibrillation, controlled with current therapy, Stable - Carries a hx/o PAF in the past - EKG obtained: Atrial Fibrillation with HR of 120; improved - Repeat CXR with stable aspiration findings - BNP/Echo as above - Stroke PPx: CI due to brain bleed; repeat Head CT scan in AM - Changes to rate control regimen: Metoprolol 50 mg po Q8H and Cardizem SA 30 mg po Q6H Subdural Hematoma and Acute Right Cortical Infarct, Improved and Stable - S/p Fall - Has hx/o brain bleed in the past - Head CT scan confirms it: 5 mm in the left temporo-parietal region and 7 mm in the right parietal region, MRI done following day shows slight worsening of bleed- see reports - Risk factor: On Warfarin, fall and hx of CVA/hemorrhagic with subsequent seizure disorder in the past - ED provider spoke to Dr. Schmidt, Neurosurgeon: recommend CT scan in 2 weeks then follow up in the office - Continue to Hold Warfarin and ASA - Follow up MRI: essentially the same from previous study; no acute new abnormal findings - Follow up head CT: improved and stable findings. Resolved: S/P Fall at [facility] - High Fall Risk - Polypharmacy - Fall precautions in place Aspiration Pneumonia, presumptive treatment - She has been altered with fluctuating level of alertness (delirium) - CXR shows right side pneumonia with small pleural effusion - ATB have bed stopped. Continue florastor - Supplemental O2, Routine RT care and Bronchodilators - Sputum Cx/Sx--unable to obtain as patient does not understand/unable to follow instructions; as has been on abx tx for days now will cxl orders - WBC is now normal but CRP continues to go up - Cont MENTAL HEALTH THERAPIST evaluation ongoing daily Small Left Side Pleural Effusion, Likely resolved - IS as directed- if able to cooperate - Aspiration precaution - Serial CXR as needed - BNP elevated, diurese as needed 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 Subtherapeutic INR, Unchanged---Holding warfarin due to continued areas of micro bleeding on head CT - Last INR 1.18 - Continue to hold off Warfarin/ASA due to brain bleed - Recommend switching to DOACs (defer to PCP after discharge) Right Shoulder Pain, New - S/p Fall - Tender with palpation and pain with active movement - XR with 3 views to r/o acute fracture is negative - PRN pain medication; PT/OT Chronic: Impaired Vision HTN- stable, 120-130's/80-90's HLD- will check lipid panel Atrial Fibrillation via Holter Monitor Mitral Valve Insufficiency GERD- GI prophylax OA/DJD Osteoporosis Hypothyroidism- stable Trigerminal Neuralgia, Continue Carbamezapine Inflammatory Spondylopathy Hx/o DVT/TIA Hx/o Brain Bleed Hx/o seizure s/p hemorrhagic stroke Anxiety Plan: She has considerably improved since I saw about a week ago She is clinically and hemodynamically stable as well Routine AM Labs Continue MENTAL HEALTH THERAPIST and PT/OT DVT PPx: SCDs; no anti-coags due to brain bleed GI prophylaxis: H2B IV BID Aspiration/Fall/Seizure Precautions Additional orders as above CM/SW for d/c planning- PEG Tube for short term use until her nutritional requirement is met Disposition is pending, awaiting input from [facility] or [facility] [place] Code Status: DNR/DNI LOS > 96 hours due to slow response to treatment; awaiting placement to SNF/NH/ CVA rehab center
[2017-01-28] MEDS: Cholecalciferol (Vitamin D3) 1,000 Unit Tab PO SCH (09:43)
[2017-01-28] MEDS: Insulin Aspart 100 Units/ML 3 ML Pen SUBCUT SCH ×2 (09:43→22:24)
[2017-01-28] MEDS: Saccharomyces Boulardii (Probiotic) 250 MG Cap PO SCH ×2 (09:43→21:29)
[2017-01-28] MEDS: carBAMazepine 200 MG Tab PO SCH ×2 (09:43→21:30)
[2017-01-28] MEDS: Famotidine 20 MG Tab GTUBE SCH (09:43)
[2017-01-28] MEDS: QUEtiapine 25 MG Tab PO SCH (09:44)
[2017-01-28] MEDS: CYCLOSPORINE EYEBOTH SCH ×2 (09:51→21:30)
[2017-01-28] MEDS: Simvastatin 20 MG Tab PO SCH (21:31)
[2017-01-28] MEDS: Lisinopril 10 MG Tab PO SCH (21:35)
[2017-01-29] MEDS: Diltiazem IR 30 MG Tab PO SCH ×4 (00:23→18:49)
[2017-01-29] MEDS: Levothyroxine 88 MCG Tab PO SCH (06:41)
[2017-01-29] MEDS: Metoprolol Tartrate 50 MG Tab PO SCH ×3 (06:44→21:30)
--- NOTE | 2017-01-29 07:51 | PCM.PN ---
- General Info Date of Service: 01/29/17 Admission Dx/Problem (Free Text): Brain Bleed and Stroke Subjective Update: Follow up Functional Status: Reports: Pain Controlled, Tolerating Diet, Ambulating, Urinating. Denies: New Symptoms - Review of Systems General: Denies: Fever, Chills HEENT: Reports: No Symptoms Pulmonary: Denies: Shortness of Breath Cardiovascular: Denies: Chest Pain, Edema Gastrointestinal: Denies: Abdominal Pain, Vomiting Genitourinary: Reports: No Symptoms Musculoskeletal: Reports: No Symptoms Skin: Denies: Cyanosis, Pallor Neurological: Reports: Weakness, Gait Disturbance. Denies: Confusion, Difficulty Walking Psychiatric: Denies: Depression, Anxiety, Agitation, Hallucinations Systems Review Comment:: No significant overnight or acute issues. She seems to be doing just fine. She has no new complaints. - Patient Data Vitals - Most Recent: Last Vital Signs Temp 36.4 C 01/29/17 04:01 Pulse 92 01/29/17 06:44 Resp 16 01/29/17 04:01 BP 105/69 01/29/17 06:44 Pulse Ox 99 01/29/17 06:43 Weight - Most Recent: 54.839 kg I&O - Last 24 Hours: Intake & Output 01/28/17 01/29/17 01/29/17 22:59 06:59 14:59 Intake Total 1535 1765 Output Total 1100 1275 Balance 435 490 Lab Results Last 24 Hours: Laboratory Results - last 24 hr 01/28/17 01/28/17 01/29/17 Range/Units 07:18 22:11 06:33 POC Glucose 103 134 H 116 H (83-110) mg/dL Med Orders - Current: Current Medications Acetaminophen (Tylenol) 650 mg PO Q4H PRN PRN Reason: Pain (Mild 1-3)/fever Last Admin: 01/27/17 21:58 Dose: 650 mg Acetaminophen (Tylenol) 650 mg RECTAL Q4H PRN PRN Reason: Pain/Fever Hydrocodone Bitart/Acetaminophen ([place] 325-5 Mg) 1 tab PO Q4H PRN PRN Reason: Pain (moderate 4-6) Bisacodyl (Dulcolax) 5 mg PO DAILY PRN PRN Reason: Constipation Last Admin: 01/19/17 04:58 Dose: 5 mg Bisacodyl (Dulcolax) 10 mg RECTAL DAILY PRN PRN Reason: Constipation Last Admin: 01/15/17 06:31 Dose: 10 mg Carbamazepine (Tegretol Tab) 200 mg PO BID [facility] Last Admin: 01/28/17 21:30 Dose: 200 mg Cholecalciferol (Vitamin D3) 2,000 units PO DAILY [facility] Last Admin: 01/28/17 09:43 Dose: 2,000 units Diltiazem HCl (Cardizem Ir) 30 mg PO Q6HR [facility] Last Admin: 01/29/17 06:41 Dose: 30 mg Docusate Sodium (Colace) 100 mg PO BID PRN PRN Reason: Constipation Famotidine (Pepcid) 20 mg GTUBE DAILY [facility] Last Admin: 01/28/17 09:43 Dose: 20 mg Hydralazine HCl (Apresoline) 10 mg IVPUSH Q4H PRN PRN Reason: Hypertension Hydromorphone HCl (Dilaudid) 0.25 mg IVPUSH Q2H PRN PRN Reason: Pain (severe 7-10) Last Admin: 01/18/17 19:12 Dose: 0.25 mg Insulin Aspart (Novolog) 0 unit SUBCUT [facility] PRN Reason: Protocol Last Admin: 01/28/17 22:24 Dose: Not Given Levothyroxine Sodium (Synthroid) 88 mcg PO ACBRK [facility] Last Admin: 01/29/17 06:41 Dose: 88 mcg Lisinopril (Prinivil) 10 mg PO BEDTIME [facility] Last Admin: 01/28/17 21:35 Dose: Not Given Lorazepam (Ativan) 2 mg IVPUSH Q4H PRN PRN Reason: Seizures Lorazepam (Ativan) 0.25 mg IVPUSH Q6H PRN PRN Reason: Anxiety Last Admin: 01/23/17 01:07 MDT Dose: 0.25 mg Metoprolol Tartrate (Lopressor) 5 mg IVPUSH Q4H PRN PRN Reason: Tachycardia Last Admin: 01/23/17 06:37 Dose: 5 mg Metoprolol Tartrate (Lopressor) 50 mg PO Q8HR [facility] Last Admin: 01/29/17 06:44 Dose: 50 mg Ondansetron HCl (Zofran) 4 mg IV Q6H PRN PRN Reason: Nausea/Vomiting Last Admin: 01/14/17 09:42 Dose: 4 mg Cyclosporine ( Restasis) Ophth Solution 0 each EYEBOTH BID [facility] Last Admin: 01/28/17 21:30 Dose: 1 each [Systane 0.3-0.4% Eye Drops] 1 D Own Med 0 each EYEBOTH BID [facility] Last Admin: 01/28/17 21:28 Dose: 1 each Polyethylene Glycol (Miralax) 17 gm PO DAILY PRN PRN Reason: Constipation Last Admin: 01/14/17 06:39 Dose: 17 gm Quetiapine Fumarate (Seroquel) 12.5 mg PO DAILY [facility] Last Admin: 01/28/17 09:44 Dose: 12.5 mg Saccharomyces Boulardii (Florastor) 250 mg PO BID [facility] Last Admin: 01/28/17 21:29 Dose: 250 mg Senna/Docusate Sodium (Senna Plus) 1 tab PO BID PRN PRN Reason: Constipation Last Admin: 01/19/17 08:58 Dose: 1 tab Simvastatin (Zocor) 20 mg PO BEDTIME [facility] Last Admin: 01/28/17 21:31 Dose: 20 mg Temazepam (Restoril) 7.5 mg PO BEDTIME PRN PRN Reason: Sleep Last Admin: 01/24/17 02:39 Dose: 7.5 mg Discontinued Medications Albuterol/Ipratropium (Duoneb 3.0-0.5 Mg/3 Ml) 3 ml NEB Q4H PRN PRN Reason: Shortness Of Breath/wheezing Bacitracin (Bacitracin Oint) Confirm Administered Dose 15 gm .ROUTE .STK-MED ONE Stop: 01/21/17 14:14 Last Admin: 01/21/17 14:10 Dose: 15 gm Barium Sulfate (E-Z-Hd) 340 gm PO ONETIME ONE Stop: 01/25/17 08:45 Last Admin: 01/25/17 16:24 Dose: Not Given Barium Sulfate (E-Z-Paste) 454 gm PO ONETIME ONE Stop: 01/25/17 08:45 Last Admin: 01/25/17 16:24 Dose: Not Given Barium Sulfate (Liquid E-Z Paque) 355 ml PO PREPRO ONE Stop: 01/25/17 08:45 Last Admin: 01/25/17 16:24 Dose: Not Given Bumetanide (Bumex) 0.5 mg IVPUSH ONETIME ONE Stop: 01/17/17 21:01 Last Admin: 01/17/17 22:13 Dose: 0.5 mg Bumetanide (Bumex) 1 mg IVPUSH ONETIME ONE Stop: 01/18/17 12:06 Last Admin: 01/18/17 13:20 Dose: 1 mg Bumetanide (Bumex) 0.5 mg IVPUSH ONETIME ONE Stop: 01/19/17 07:01 Bumetanide (Bumex) 1 mg IVPUSH ONETIME ONE Stop: 01/19/17 07:01 Last Admin: 01/19/17 06:15 Dose: 1 mg Carbamazepine (Tegretol) 300 mg PO TID [facility] Last Admin: 01/12/17 16:28 Dose: 300 mg Carbamazepine (Tegretol) 200 mg PO TID [facility] Last Admin: 01/12/17 20:09 Dose: 200 mg Carbamazepine (Tegretol Tab) 200 mg PO TID [facility] Last Admin: 01/14/17 08:18 Dose: 200 mg Carbamazepine (Tegretol) 150 mg PO TID [facility] Last Admin: 01/14/17 16:01 Dose: Not Given Carbamazepine (Tegretol) 150 mg PO BID [facility] Last Admin: 01/17/17 08:45 Dose: 150 mg Diazepam (Valium.) 5 mg PO ONETIME ONE Stop: 01/14/17 11:07 Last Admin: 01/14/17 11:27 Dose: 5 mg Diltiazem HCl (Cardizem Cd) 120 mg PO DAILY [facility] Last Admin: 01/18/17 08:19 Dose: 120 mg Diltiazem HCl (Cardizem) 60 mg PO ONETIME ONE Stop: 01/18/17 12:16 Last Admin: 01/18/17 13:20 Dose: 60 mg Diltiazem HCl (Cardizem) 30 mg PO ONETIME ONE Stop: 01/18/17 12:16 Last Admin: 01/18/17 13:20 Dose: 30 mg Diltiazem HCl (Cardizem Cd) 240 mg PO DAILY [facility] Diltiazem HCl (Cardizem Cd) 120 mg PO DAILY [facility] Last Admin: 01/20/17 08:01 Dose: 120 mg Diltiazem HCl (Diltiazem) 10 mg IVPUSH ONETIME ONE Stop: 01/19/17 11:36 Diltiazem HCl (Cardizem Ir) 60 mg PO Q6HR [facility] Last Admin: 01/23/17 12:01 Dose: 60 mg Famotidine (Pepcid) 20 mg IVPUSH BID [facility] Stop: 01/16/17 23:59 Last Admin: 01/16/17 20:18 Dose: 20 mg Famotidine (Pepcid) 20 mg IVPUSH DAILY [facility] Last Admin: 01/22/17 08:23 Dose: 20 mg Furosemide (Lasix) 20 mg PO DAILY PRN PRN Reason: Edema Furosemide (Lasix) 20 mg PO ONETIME ONE Stop: 01/17/17 07:31 Last Admin: 01/17/17 08:48 Dose: 20 mg Furosemide (Lasix) 20 mg IVPUSH NOW ONE Stop: 01/23/17 14:48 Last Admin: 01/23/17 14:10 Dose: Not Given Furosemide (Lasix) 10 mg IVPUSH NOW ONE Stop: 01/26/17 14:35 Last Admin: 01/26/17 14:51 Dose: 10 mg Gabapentin (Neurontin) 100 mg PO DAILY [facility] Last Admin: 01/12/17 09:10 Dose: 100 mg Promethazine HCl 12.5 mg/ (Sodium Chloride) 50.5 mls @ 100 mls/hr IV Q6H PRN PRN Reason: Nausea/Vomiting Magnesium Sulfate 2 gm/ Premix 50 mls @ 25 mls/hr IV ONETIME ONE Stop: 01/13/17 12:59 Last Admin: 01/13/17 12:25 Dose: 25 mls/hr Dextrose/Sodium Chloride (Dextrose 5%-Normal Saline) 1,000 mls @ 75 mls/hr IV ASDIRECTED [facility] Last Admin: 01/17/17 04:53 Dose: 75 mls/hr Magnesium Sulfate 2 gm/ Premix 50 mls @ 25 mls/hr IV ONETIME ONE Stop: 01/15/17 10:59 Last Admin: 01/15/17 09:36 Dose: 25 mls/hr Azithromycin 500 mg/ Sodium (Chloride) 250 mls @ 250 mls/hr IV ONETIME ONE Stop: 01/15/17 20:25 Last Admin: 01/15/17 20:40 Dose: 250 mls/hr Ceftriaxone Sodium 1 gm/ (Sodium Chloride) 100 mls @ 200 mls/hr IV ONETIME ONE Stop: 01/15/17 21:00 Last Admin: 01/15/17 21:52 Dose: 200 mls/hr Ceftriaxone Sodium 1 gm/ (Sodium Chloride) 100 mls @ 200 mls/hr IV Q24H [facility] Last Admin: 01/16/17 19:36 Dose: Not Given Ceftriaxone Sodium 1 gm/ (Sodium Chloride) 100 mls @ 200 mls/hr IV Q24H [facility] Last Admin: 01/17/17 11:11 Dose: 200 mls/hr Azithromycin 500 mg/ Sodium (Chloride) 250 mls @ 250 mls/hr IV Q24H [facility] Last Admin: 01/17/17 10:41 Dose: Not Given Azithromycin 500 mg/ Sodium (Chloride) 250 mls @ 250 mls/hr IV ONETIME ONE Stop: 01/16/17 14:44 Last Admin: 01/16/17 14:20 Dose: 250 mls/hr Metronidazole 500 mg/ Premix 100 mls @ 100 mls/hr IV Q8H [facility] Last Admin: 01/20/17 09:46 Dose: 100 mls/hr Ceftriaxone Sodium 1 gm/ (Dextrose/Water) 100 mls @ 200 mls/hr IV Q24H [facility] Ceftriaxone Sodium 1 gm/ (Dextrose/Water) 100 mls @ 200 mls/hr IV Q24H [facility] Last Admin: 01/18/17 11:29 Dose: 200 mls/hr Piperacillin Sod/Tazobactam (Sod 4.5 gm/ Dextrose/Water) 100 mls @ 200 mls/hr IV ONETIME ONE Stop: 01/18/17 12:29 Last Admin: 01/18/17 13:21 Dose: 200 mls/hr Piperacillin Sod/Tazobactam (Sod 4.5 gm/ Dextrose/Water) 100 mls @ 25 mls/hr IV Q8H [facility] Stop: 01/20/17 17:00 Last Admin: 01/20/17 11:44 Dose: 25 mls/hr Esmolol HCl (Brevibloc In Ns Premix) 2.5 gm in 250 mls @ 0 mls/hr IV TITRATE MICHELLE; 50 MCG/KG/MIN PRN Reason: Protocol Diltiazem HCl 125 mg/ Sodium (Chloride) 125 mls @ 5 mls/hr IV TITRATE MICHELLE; 5 MG /HR PRN Reason: Protocol Diltiazem HCl 125 mg/ Sodium (Chloride) 125 mls @ 2.5 mls/hr IV TITRATE MICHELLE; 2.5 MG/HR PRN Reason: Protocol Last Titration: 01/20/17 09:29 Dose: 0 mg/hr, 0 mls/hr Ampicillin Sodium/Sulbactam (Sodium 1.5 gm/ Sodium Chloride) 100 mls @ 200 mls/ hr IV Q12H [facility] Last Admin: 01/21/17 08:59 Dose: 200 mls/hr Potassium Chloride 10 meq/ (Premix) 100 mls @ 100 mls/hr IV Q1H [facility] Stop: 01/21/17 12:59 Last Admin: 01/21/17 12:06 Dose: Not Given Potassium Chloride/Dextrose/Sod Cl (D5 Ns With 20 Meq Kcl) 1,000 mls @ 75 mls/ hr IV ASDIRECTED [facility] Last Admin: 01/22/17 00:29 Dose: 75 mls/hr Potassium Chloride 10 meq/ (Premix) 100 mls @ 100 mls/hr IV Q1H [facility] Stop: 01/21/17 11:29 Last Admin: 01/21/17 11:40 Dose: 100 mls/hr Piperacillin Sod/Tazobactam (Sod 4.5 gm/ Dextrose/Water) 100 mls @ 25 mls/hr IV Q8H [facility] Last Admin: 01/25/17 05:59 Dose: 25 mls/hr Ampicillin Sodium/Sulbactam (Sodium 1.5 gm/ Sodium Chloride) 100 mls @ 200 mls/ hr IV ONETIME ONE Stop: 01/21/17 14:31 Last Admin: 01/21/17 15:40 Dose: 200 mls/hr Magnesium Sulfate 2 gm/ Premix 50 mls @ 25 mls/hr IV ONETIME ONE Stop: 01/23/17 11:45 Last Admin: 01/23/17 12:00 Dose: 25 mls/hr Levalbuterol HCl (Xopenex) 1.25 mg INH QIDRT [facility] Last Admin: 01/23/17 10:09 Dose: 1.25 mg Lisinopril (Prinivil) 20 mg PO DAILY [facility] Last Admin: 01/23/17 11:05 Dose: Not Given Lisinopril (Prinivil) 10 mg PO DAILY [facility] Lisinopril (Prinivil) 10 mg PO BID [facility] Last Admin: 01/26/17 09:25 Dose: Not Given Lorazepam (Ativan) 0.25 mg IV Q6H PRN PRN Reason: Anxiety Last Admin: 01/17/17 05:53 Dose: 0.25 mg Lorazepam (Ativan) 0.25 mg IV ONETIME ONE Stop: 01/18/17 09:16 Last Admin: 01/18/17 09:29 Dose: 0.25 mg Magnesium Oxide (Magnesium Oxide) 400 mg PO ONETIME ONE Stop: 01/13/17 08:01 Last Admin: 01/13/17 12:13 Dose: Not Given Magnesium Oxide (Magnesium Oxide) 800 mg PO ONETIME ONE Stop: 01/18/17 08:31 Last Admin: 01/18/17 08:24 Dose: 800 mg Magnesium Sulfate (Pharmacy To Dose - Magnesium Replacement) 1 dose .XX ASDIRECTED [facility] Metoprolol Succinate (Toprol Xl) 50 mg PO DAILY [facility] Last Admin: 01/18/17 08:22 Dose: 50 mg Metoprolol Succinate (Toprol Xl) 100 mg PO BID [facility] Last Admin: 01/20/17 20:23 Dose: 100 mg Metoprolol Succinate (Toprol Xl) 50 mg PO BID [facility] Last Admin: 01/23/17 10:58 Dose: Not Given Metoprolol Succinate (Toprol Xl) 25 mg PO ONETIME ONE Stop: 01/23/17 09:31 Last Admin: 01/23/17 09:30 Dose: 25 mg Modafinil (Provigil) 50 mg PO DAILY [facility] Last Admin: 01/15/17 09:26 Dose: 50 mg Modafinil (Provigil) 100 mg PO DAILY [facility] Last Admin: 01/17/17 08:47 Dose: 100 mg Ondansetron HCl (Zofran Odt) 4 mg PO Q6H [facility] Last Admin: 01/21/17 12:07 Dose: Not Given Phenytoin Sodium (Phenytoin) 100 mg PO BID [facility] Last Admin: 01/15/17 20:46 Dose: Not Given Potassium Chloride (Pharmacy To Dose - Potassium Replacement) 1 dose .XX ASDIRECTED [facility] Propofol (Diprivan 20 Ml) Confirm Administered Dose 200 mg .ROUTE .STK-MED ONE Stop: 01/21/17 12:19 Quetiapine Fumarate (Seroquel) 25 mg PO DAILY [facility] Last Admin: 01/15/17 09:26 Dose: 25 mg Quetiapine Fumarate (Seroquel) 25 mg PO ONETIME ONE Stop: 01/18/17 11:05 Last Admin: 01/18/17 11:23 Dose: 25 mg Quetiapine Fumarate (Seroquel) 25 mg PO DAILY [facility] Last Admin: 01/24/17 09:26 Dose: 25 mg Saccharomyces Boulardii (Florastor) 250 mg PO DAILY [facility] Last Admin: 01/17/17 08:31 Dose: 250 mg - Exam General: Alert, Cooperative, No Acute Distress HEENT: Pupils Equal, Pupils Reactive, Mucous Membr. Moist/[place] Neck: Supple, Trachea Midline, No JVD, No Thyromegaly Lungs: Normal Respiratory Effort, Decreased Breath Sounds Cardiovascular: Regular Rate, Regular Rhythm GI/Abdominal Exam: Normal Bowel Sounds, Soft, Non-Tender, No Organomegaly, No Distention (Female) Exam: Deferred Back Exam: Normal Inspection, Decreased Range of Motion Extremities: Normal Inspection, Normal Range of Motion, Non-Tender, No Pedal Edema, Normal Capillary Refill Peripheral Pulses: 2+: Dorsalis Pedis (L), Dorsalis Pedis (R) Skin: Warm, Dry, Intact Neurological: No New Focal Deficit Psy/Mental Status: Alert, Normal Affect, Normal Mood - Problem List Review Problem List Initiated/Reviewed/Updated: Yes - Plan Plan:: Assessment/Plan: Acute: Delirium with hallucinations but less agitation/anxiety, Stable - Hx of seizure disorder s/p hemorrhagic stroke in the past - ACADEMIC MANAGER cont to follow - Ativan PRN for restlessness - Continue Seroquel 21.5 mg po daily Generalized Weakness, Improved - Likely 2/2 above and poor intake - Continue PT/OT - Thyroid panel: normal - Vit D level: low, started supplement as below Vitamin D-Deficiency, New - Vit D level 21 (low) - Continue Vit D supplement Poor Nutritional Status, Improved - She is able to swallow/eat and drink but not meeting her nutritional requirement - POD 8: PEG tube placement, TF started and tolerated Atrial Fibrillation, HR controlled with current therapy, Stable - Carries a hx/o PAF in the past - EKG obtained: Atrial Fibrillation with HR of 120; improved - Repeat CXR with stable aspiration findings - BNP/Echo as above - Stroke PPx: CI due to brain bleed; repeat Head CT scan in AM - Changes to rate control regimen: Metoprolol 50 mg po Q8H and Cardizem SA 30 mg po Q6H Subdural Hematoma and Acute Right Cortical Infarct, Improved and Stable - S/p Fall - Has hx/o brain bleed in the past - Head CT scan confirms it: 5 mm in the left temporo-parietal region and 7 mm in the right parietal region, MRI done following day shows slight worsening of bleed- see reports - Risk factor: On Warfarin, fall and hx of CVA/hemorrhagic with subsequent seizure disorder in the past - ED provider spoke to Dr. Schmidt, Neurosurgeon: recommend CT scan in 2 weeks then follow up in the office - Continue to Hold Warfarin and ASA - Follow up MRI: essentially the same from previous study; no acute new abnormal findings - Follow up head CT: improved and stable findings. Resolved: [facility] - High Fall Risk - Polypharmacy - Fall precautions in place Aspiration Pneumonia, presumptive treatment - She has been altered with fluctuating level of alertness (delirium) - CXR shows right side pneumonia with small pleural effusion - ATB have bed stopped. Continue florastor - Supplemental O2, Routine RT care and Bronchodilators - Sputum Cx/Sx--unable to obtain as patient does not understand/unable to follow instructions; as has been on abx tx for days now will cxl orders - WBC is now normal but CRP continues to go up - Cont ACADEMIC MANAGER evaluation ongoing daily Small Left Side Pleural Effusion, Likely resolved - IS as directed- if able to cooperate - Aspiration precaution - Serial CXR as needed - BNP elevated, diurese as needed 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 Subtherapeutic INR, Unchanged---Holding warfarin due to continued areas of micro bleeding on head CT - Last INR 1.18 - Continue to hold off Warfarin/ASA due to brain bleed - Recommend switching to DOACs (defer to PCP after discharge) Right Shoulder Pain, New - S/p Fall - Tender with palpation and pain with active movement - XR with 3 views to r/o acute fracture is negative - PRN pain medication; PT/OT Chronic: Impaired Vision HTN- stable, 120-130's/80-90's HLD- will check lipid panel Atrial Fibrillation via Holter Monitor Mitral Valve Insufficiency GERD- GI prophylax OA/DJD Osteoporosis Hypothyroidism- stable Trigerminal Neuralgia, Continue Carbamezapine Inflammatory Spondylopathy Hx/o DVT/TIA Hx/o Brain Bleed Hx/o seizure s/p hemorrhagic stroke Anxiety Plan: She continues to do well clinically and hemodynmically Routine AM Labs Continue ACADEMIC MANAGER and PT/OT DVT PPx: SCDs; no anti-coags due to brain bleed GI prophylaxis: H2B IV BID Aspiration/Fall/Seizure Precautions Additional orders as above CM/SW for d/c planning-PEG Tube for short term use Disposition is pending, awaiting input from [facility] or [facility] Code Status: DNR/DNI LOS > 96 hours due to slow response to treatment; awaiting placement to SNF/NH/ [facility] rehab center
[2017-01-29] MEDS: Saccharomyces Boulardii (Probiotic) 250 MG Cap PO SCH ×2 (09:30→21:19)
[2017-01-29] MEDS: Famotidine 20 MG Tab GTUBE SCH (09:31)
[2017-01-29] MEDS: QUEtiapine 25 MG Tab PO SCH (09:33)
[2017-01-29] MEDS: carBAMazepine 200 MG Tab PO SCH ×2 (09:34→21:24)
[2017-01-29] MEDS: Cholecalciferol (Vitamin D3) 1,000 Unit Tab PO SCH (09:34)
[2017-01-29] MEDS: CYCLOSPORINE EYEBOTH SCH ×2 (09:35→21:25)
[2017-01-29] MEDS: Insulin Aspart 100 Units/ML 3 ML Pen SUBCUT SCH ×2 (09:36→21:25)
[2017-01-29] MEDS: Acetaminophen 325 MG Tab PO PRN (21:21)
[2017-01-29] MEDS: Simvastatin 20 MG Tab PO SCH (21:21)
[2017-01-29] MEDS: Lisinopril 10 MG Tab PO SCH (21:30)
[2017-01-30] MEDS: Diltiazem IR 30 MG Tab PO SCH ×4 (00:05→18:18)
[2017-01-30] MEDS: Levothyroxine 88 MCG Tab PO SCH (05:53)
[2017-01-30] MEDS: Metoprolol Tartrate 50 MG Tab PO SCH ×3 (05:56→21:56)
--- NOTE | 2017-01-30 06:57 | PCM.SN ---
- Free Text/Narrative Note: Spoke to family last night about blood thinner. Her [id number] score is 6. Her stroke/TIA/systemic embolic risk is 13.6 per year. Discussed management with family and they decided to restart her on anticoagulation with eliquis with better safety profile than warfarin. This will be started this morning at 9 am BID.
--- NOTE | 2017-01-30 07:14 | PCM.PN ---
- General Info Date of Service: 01/30/17 Admission Dx/Problem (Free Text): Brain Bleed and Stroke Subjective Update: Follow up Functional Status: Reports: Pain Controlled, Tolerating Diet, Ambulating, Urinating. Denies: New Symptoms - Review of Systems General: Denies: Fever, Chills HEENT: Reports: No Symptoms Pulmonary: Denies: Shortness of Breath Cardiovascular: Denies: Chest Pain Gastrointestinal: Reports: Difficulty Swallowing. Denies: Abdominal Pain, Nausea, Vomiting Genitourinary: Reports: No Symptoms Musculoskeletal: Reports: No Symptoms Skin: Denies: Cyanosis, Diaphoresis, Rash Neurological: Reports: Weakness, Gait Disturbance. Denies: Confusion Psychiatric: Denies: Depression, Anxiety, Agitation, Hallucinations, Suicidal Ideation Systems Review Comment:: No overnight or acute issues. He is essentially well. She has no new complaints. Her vitals are stable. - Patient Data Vitals - Most Recent: Last Vital Signs Temp 36.9 C 01/30/17 03:08 Pulse 82 01/30/17 05:56 Resp 16 01/30/17 03:08 BP 118/62 01/30/17 05:56 Pulse Ox 99 01/30/17 03:08 Weight - Most Recent: 54.885 kg I&O - Last 24 Hours: Intake & Output 01/29/17 01/30/17 01/30/17 22:59 06:59 14:59 Intake Total 1053 280 Balance 1053 280 Lab Results Last 24 Hours: Laboratory Results - last 24 hr 01/29/17 01/30/17 Range/Units 21:18 06:33 POC Glucose 110 116 H (83-110) mg/dL Med Orders - Current: Current Medications Acetaminophen (Tylenol) 650 mg PO Q4H PRN PRN Reason: Pain (Mild 1-3)/fever Last Admin: 01/29/17 21:21 Dose: 650 mg Acetaminophen (Tylenol) 650 mg RECTAL Q4H PRN PRN Reason: Pain/Fever Hydrocodone Bitart/Acetaminophen ([place] 325-5 Mg) 1 tab PO Q4H PRN PRN Reason: Pain (moderate 4-6) Bisacodyl (Dulcolax) 5 mg PO DAILY PRN PRN Reason: Constipation Last Admin: 01/19/17 04:58 Dose: 5 mg Bisacodyl (Dulcolax) 10 mg RECTAL DAILY PRN PRN Reason: Constipation Last Admin: 01/15/17 06:31 Dose: 10 mg Carbamazepine (Tegretol Tab) 200 mg PO BID [facility] Last Admin: 01/29/17 21:24 Dose: 200 mg Cholecalciferol (Vitamin D3) 2,000 units PO DAILY [facility] Last Admin: 01/29/17 09:34 Dose: 2,000 units Diltiazem HCl (Cardizem Ir) 30 mg PO Q6HR [facility] Last Admin: 01/30/17 05:56 Dose: 30 mg Docusate Sodium (Colace) 100 mg PO BID PRN PRN Reason: Constipation Famotidine (Pepcid) 20 mg GTUBE DAILY [facility] Last Admin: 01/29/17 09:31 Dose: 20 mg Hydralazine HCl (Apresoline) 10 mg IVPUSH Q4H PRN PRN Reason: Hypertension Hydromorphone HCl (Dilaudid) 0.25 mg IVPUSH Q2H PRN PRN Reason: Pain (severe 7-10) Last Admin: 01/18/17 19:12 Dose: 0.25 mg Insulin Aspart (Novolog) 0 unit SUBCUT [facility] PRN Reason: Protocol Last Admin: 01/29/17 21:25 Dose: Not Given Levothyroxine Sodium (Synthroid) 88 mcg PO ACBRK [facility] Last Admin: 01/30/17 05:53 Dose: 88 mcg Lisinopril (Prinivil) 10 mg PO BEDTIME [facility] Last Admin: 01/29/17 21:30 Dose: Not Given Lorazepam (Ativan) 2 mg IVPUSH Q4H PRN PRN Reason: Seizures Lorazepam (Ativan) 0.25 mg IVPUSH Q6H PRN PRN Reason: Anxiety Last Admin: 01/23/17 01:07 MDT Dose: 0.25 mg Metoprolol Tartrate (Lopressor) 5 mg IVPUSH Q4H PRN PRN Reason: Tachycardia Last Admin: 01/23/17 06:37 Dose: 5 mg Metoprolol Tartrate (Lopressor) 50 mg PO Q8HR [facility] Last Admin: 01/30/17 05:56 Dose: 50 mg Ondansetron HCl (Zofran) 4 mg IV Q6H PRN PRN Reason: Nausea/Vomiting Last Admin: 01/14/17 09:42 Dose: 4 mg Cyclosporine ( Restasis) Ophth Solution 0 each EYEBOTH BID [facility] Last Admin: 01/29/17 21:25 Dose: 1 each [Systane 0.3-0.4% Eye Drops] 1 D Own Med 0 each EYEBOTH BID [facility] Last Admin: 01/29/17 21:25 Dose: 1 each Polyethylene Glycol (Miralax) 17 gm PO DAILY PRN PRN Reason: Constipation Last Admin: 01/14/17 06:39 Dose: 17 gm Quetiapine Fumarate (Seroquel) 12.5 mg PO DAILY [facility] Last Admin: 01/29/17 09:33 Dose: 12.5 mg Saccharomyces Boulardii (Florastor) 250 mg PO BID [facility] Last Admin: 01/29/17 21:19 Dose: 250 mg Senna/Docusate Sodium (Senna Plus) 1 tab PO BID PRN PRN Reason: Constipation Last Admin: 01/19/17 08:58 Dose: 1 tab Simvastatin (Zocor) 20 mg PO BEDTIME [facility] Last Admin: 01/29/17 21:21 Dose: 20 mg Temazepam (Restoril) 7.5 mg PO BEDTIME PRN PRN Reason: Sleep Last Admin: 01/24/17 02:39 Dose: 7.5 mg Discontinued Medications Albuterol/Ipratropium (Duoneb 3.0-0.5 Mg/3 Ml) 3 ml NEB Q4H PRN PRN Reason: Shortness Of Breath/wheezing Bacitracin (Bacitracin Oint) Confirm Administered Dose 15 gm .ROUTE .STK-MED ONE Stop: 01/21/17 14:14 Last Admin: 01/21/17 14:10 Dose: 15 gm Barium Sulfate (E-Z-Hd) 340 gm PO ONETIME ONE Stop: 01/25/17 08:45 Last Admin: 01/25/17 16:24 Dose: Not Given Barium Sulfate (E-Z-Paste) 454 gm PO ONETIME ONE Stop: 01/25/17 08:45 Last Admin: 01/25/17 16:24 Dose: Not Given Barium Sulfate (Liquid E-Z Paque) 355 ml PO PREPRO ONE Stop: 01/25/17 08:45 Last Admin: 01/25/17 16:24 Dose: Not Given Bumetanide (Bumex) 0.5 mg IVPUSH ONETIME ONE Stop: 01/17/17 21:01 Last Admin: 01/17/17 22:13 Dose: 0.5 mg Bumetanide (Bumex) 1 mg IVPUSH ONETIME ONE Stop: 01/18/17 12:06 Last Admin: 01/18/17 13:20 Dose: 1 mg Bumetanide (Bumex) 0.5 mg IVPUSH ONETIME ONE Stop: 01/19/17 07:01 Bumetanide (Bumex) 1 mg IVPUSH ONETIME ONE Stop: 01/19/17 07:01 Last Admin: 01/19/17 06:15 Dose: 1 mg Carbamazepine (Tegretol) 300 mg PO TID [facility] Last Admin: 01/12/17 16:28 Dose: 300 mg Carbamazepine (Tegretol) 200 mg PO TID [facility] Last Admin: 01/12/17 20:09 Dose: 200 mg Carbamazepine (Tegretol Tab) 200 mg PO TID [facility] Last Admin: 01/14/17 08:18 Dose: 200 mg Carbamazepine (Tegretol) 150 mg PO TID [facility] Last Admin: 01/14/17 16:01 Dose: Not Given Carbamazepine (Tegretol) 150 mg PO BID [facility] Last Admin: 01/17/17 08:45 Dose: 150 mg Diazepam (Valium.) 5 mg PO ONETIME ONE Stop: 01/14/17 11:07 Last Admin: 01/14/17 11:27 Dose: 5 mg Diltiazem HCl (Cardizem Cd) 120 mg PO DAILY [facility] Last Admin: 01/18/17 08:19 Dose: 120 mg Diltiazem HCl (Cardizem) 60 mg PO ONETIME ONE Stop: 01/18/17 12:16 Last Admin: 01/18/17 13:20 Dose: 60 mg Diltiazem HCl (Cardizem) 30 mg PO ONETIME ONE Stop: 01/18/17 12:16 Last Admin: 01/18/17 13:20 Dose: 30 mg Diltiazem HCl (Cardizem Cd) 240 mg PO DAILY [facility] Diltiazem HCl (Cardizem Cd) 120 mg PO DAILY [facility] Last Admin: 01/20/17 08:01 Dose: 120 mg Diltiazem HCl (Diltiazem) 10 mg IVPUSH ONETIME ONE Stop: 01/19/17 11:36 Diltiazem HCl (Cardizem Ir) 60 mg PO Q6HR [facility] Last Admin: 01/23/17 12:01 Dose: 60 mg Famotidine (Pepcid) 20 mg IVPUSH BID [facility] Stop: 01/16/17 23:59 Last Admin: 01/16/17 20:18 Dose: 20 mg Famotidine (Pepcid) 20 mg IVPUSH DAILY [facility] Last Admin: 01/22/17 08:23 Dose: 20 mg Furosemide (Lasix) 20 mg PO DAILY PRN PRN Reason: Edema Furosemide (Lasix) 20 mg PO ONETIME ONE Stop: 01/17/17 07:31 Last Admin: 01/17/17 08:48 Dose: 20 mg Furosemide (Lasix) 20 mg IVPUSH NOW ONE Stop: 01/23/17 14:48 Last Admin: 01/23/17 14:10 Dose: Not Given Furosemide (Lasix) 10 mg IVPUSH NOW ONE Stop: 01/26/17 14:35 Last Admin: 01/26/17 14:51 Dose: 10 mg Gabapentin (Neurontin) 100 mg PO DAILY [facility] Last Admin: 01/12/17 09:10 Dose: 100 mg Promethazine HCl 12.5 mg/ (Sodium Chloride) 50.5 mls @ 100 mls/hr IV Q6H PRN PRN Reason: Nausea/Vomiting Magnesium Sulfate 2 gm/ Premix 50 mls @ 25 mls/hr IV ONETIME ONE Stop: 01/13/17 12:59 Last Admin: 01/13/17 12:25 Dose: 25 mls/hr Dextrose/Sodium Chloride (Dextrose 5%-Normal Saline) 1,000 mls @ 75 mls/hr IV ASDIRECTED [facility] Last Admin: 01/17/17 04:53 Dose: 75 mls/hr Magnesium Sulfate 2 gm/ Premix 50 mls @ 25 mls/hr IV ONETIME ONE Stop: 01/15/17 10:59 Last Admin: 01/15/17 09:36 Dose: 25 mls/hr Azithromycin 500 mg/ Sodium (Chloride) 250 mls @ 250 mls/hr IV ONETIME ONE Stop: 01/15/17 20:25 Last Admin: 01/15/17 20:40 Dose: 250 mls/hr Ceftriaxone Sodium 1 gm/ (Sodium Chloride) 100 mls @ 200 mls/hr IV ONETIME ONE Stop: 01/15/17 21:00 Last Admin: 01/15/17 21:52 Dose: 200 mls/hr Ceftriaxone Sodium 1 gm/ (Sodium Chloride) 100 mls @ 200 mls/hr IV Q24H [facility] Last Admin: 01/16/17 19:36 Dose: Not Given Ceftriaxone Sodium 1 gm/ (Sodium Chloride) 100 mls @ 200 mls/hr IV Q24H [facility] Last Admin: 01/17/17 11:11 Dose: 200 mls/hr Azithromycin 500 mg/ Sodium (Chloride) 250 mls @ 250 mls/hr IV Q24H [facility] Last Admin: 01/17/17 10:41 Dose: Not Given Azithromycin 500 mg/ Sodium (Chloride) 250 mls @ 250 mls/hr IV ONETIME ONE Stop: 01/16/17 14:44 Last Admin: 01/16/17 14:20 Dose: 250 mls/hr Metronidazole 500 mg/ Premix 100 mls @ 100 mls/hr IV Q8H [facility] Last Admin: 01/20/17 09:46 Dose: 100 mls/hr Ceftriaxone Sodium 1 gm/ (Dextrose/Water) 100 mls @ 200 mls/hr IV Q24H [facility]HELLE Ceftriaxone Sodium 1 gm/ (Dextrose/Water) 100 mls @ 200 mls/hr IV Q24H [facility] Last Admin: 01/18/17 11:29 Dose: 200 mls/hr Piperacillin Sod/Tazobactam (Sod 4.5 gm/ Dextrose/Water) 100 mls @ 200 mls/hr IV ONETIME ONE Stop: 01/18/17 12:29 Last Admin: 01/18/17 13:21 Dose: 200 mls/hr Piperacillin Sod/Tazobactam (Sod 4.5 gm/ Dextrose/Water) 100 mls @ 25 mls/hr IV Q8H [facility] Stop: 01/20/17 17:00 Last Admin: 01/20/17 11:44 Dose: 25 mls/hr Esmolol HCl (Brevibloc In Ns Premix) 2.5 gm in 250 mls @ 0 mls/hr IV TITRATE MICHELLE; 50 MCG/KG/MIN PRN Reason: Protocol Diltiazem HCl 125 mg/ Sodium (Chloride) 125 mls @ 5 mls/hr IV TITRATE MICHELLE; 5 MG /HR PRN Reason: Protocol Diltiazem HCl 125 mg/ Sodium (Chloride) 125 mls @ 2.5 mls/hr IV TITRATE MICHELLE; 2.5 MG/HR PRN Reason: Protocol Last Titration: 01/20/17 09:29 Dose: 0 mg/hr, 0 mls/hr Ampicillin Sodium/Sulbactam (Sodium 1.5 gm/ Sodium Chloride) 100 mls @ 200 mls/ hr IV Q12H [facility] Last Admin: 01/21/17 08:59 Dose: 200 mls/hr Potassium Chloride 10 meq/ (Premix) 100 mls @ 100 mls/hr IV Q1H [facility] Stop: 01/21/17 12:59 Last Admin: 01/21/17 12:06 Dose: Not Given Potassium Chloride/Dextrose/Sod Cl (D5 Ns With 20 Meq Kcl) 1,000 mls @ 75 mls/ hr IV ASDIRECTED [facility] Last Admin: 01/22/17 00:29 Dose: 75 mls/hr Potassium Chloride 10 meq/ (Premix) 100 mls @ 100 mls/hr IV Q1H [facility] Stop: 01/21/17 11:29 Last Admin: 01/21/17 11:40 Dose: 100 mls/hr Piperacillin Sod/Tazobactam (Sod 4.5 gm/ Dextrose/Water) 100 mls @ 25 mls/hr IV Q8H [facility] Last Admin: 01/25/17 05:59 Dose: 25 mls/hr Ampicillin Sodium/Sulbactam (Sodium 1.5 gm/ Sodium Chloride) 100 mls @ 200 mls/ hr IV ONETIME ONE Stop: 01/21/17 14:31 Last Admin: 01/21/17 15:40 Dose: 200 mls/hr Magnesium Sulfate 2 gm/ Premix 50 mls @ 25 mls/hr IV ONETIME ONE Stop: 01/23/17 11:45 Last Admin: 01/23/17 12:00 Dose: 25 mls/hr Levalbuterol HCl (Xopenex) 1.25 mg INH QIDRT [facility] Last Admin: 01/23/17 10:09 Dose: 1.25 mg Lisinopril (Prinivil) 20 mg PO DAILY [facility] Last Admin: 01/23/17 11:05 Dose: Not Given Lisinopril (Prinivil) 10 mg PO DAILY [facility] Lisinopril (Prinivil) 10 mg PO BID [facility] Last Admin: 01/26/17 09:25 Dose: Not Given Lorazepam (Ativan) 0.25 mg IV Q6H PRN PRN Reason: Anxiety Last Admin: 01/17/17 05:53 Dose: 0.25 mg Lorazepam (Ativan) 0.25 mg IV ONETIME ONE Stop: 01/18/17 09:16 Last Admin: 01/18/17 09:29 Dose: 0.25 mg Magnesium Oxide (Magnesium Oxide) 400 mg PO ONETIME ONE Stop: 01/13/17 08:01 Last Admin: 01/13/17 12:13 Dose: Not Given Magnesium Oxide (Magnesium Oxide) 800 mg PO ONETIME ONE Stop: 01/18/17 08:31 Last Admin: 01/18/17 08:24 Dose: 800 mg Magnesium Sulfate (Pharmacy To Dose - Magnesium Replacement) 1 dose .XX ASDIRECTED [facility] Metoprolol Succinate (Toprol Xl) 50 mg PO DAILY [facility] Last Admin: 01/18/17 08:22 Dose: 50 mg Metoprolol Succinate (Toprol Xl) 100 mg PO BID [facility] Last Admin: 01/20/17 20:23 Dose: 100 mg Metoprolol Succinate (Toprol Xl) 50 mg PO BID [facility] Last Admin: 01/23/17 10:58 Dose: Not Given Metoprolol Succinate (Toprol Xl) 25 mg PO ONETIME ONE Stop: 01/23/17 09:31 Last Admin: 01/23/17 09:30 Dose: 25 mg Modafinil (Provigil) 50 mg PO DAILY [facility] Last Admin: 01/15/17 09:26 Dose: 50 mg Modafinil (Provigil) 100 mg PO DAILY [facility] Last Admin: 01/17/17 08:47 Dose: 100 mg Ondansetron HCl (Zofran Odt) 4 mg PO Q6H [facility] Last Admin: 01/21/17 12:07 Dose: Not Given Phenytoin Sodium (Phenytoin) 100 mg PO BID [facility] Last Admin: 01/15/17 20:46 Dose: Not Given Potassium Chloride (Pharmacy To Dose - Potassium Replacement) 1 dose .XX ASDIRECTED [facility] Propofol (Diprivan 20 Ml) Confirm Administered Dose 200 mg .ROUTE .STK-MED ONE Stop: 01/21/17 12:19 Quetiapine Fumarate (Seroquel) 25 mg PO DAILY [facility] Last Admin: 01/15/17 09:26 Dose: 25 mg Quetiapine Fumarate (Seroquel) 25 mg PO ONETIME ONE Stop: 01/18/17 11:05 Last Admin: 01/18/17 11:23 Dose: 25 mg Quetiapine Fumarate (Seroquel) 25 mg PO DAILY [facility] Last Admin: 01/24/17 09:26 Dose: 25 mg Saccharomyces Dorisdii (Florastor) 250 mg PO DAILY [facility] Last Admin: 01/17/17 08:31 Dose: 250 mg - Exam General: Alert, Cooperative, No Acute Distress HEENT: Pupils Equal, Pupils Reactive, Mucous Membr. Moist/[place] Neck: Supple, Trachea Midline, No JVD Lungs: Normal Respiratory Effort, Decreased Breath Sounds Cardiovascular: Regular Rate, Regular Rhythm GI/Abdominal Exam: Normal Bowel Sounds, Soft, Non-Tender, No Organomegaly, No Distention, No Abnormal Bruit (Female) Exam: Deferred Back Exam: Normal Inspection, Decreased Range of Motion Extremities: Normal Inspection, Normal Range of Motion, Non-Tender, No Pedal Edema, Normal Capillary Refill Peripheral Pulses: 2+: Dorsalis Pedis (L), Dorsalis Pedis (R) Skin: Warm, Dry, Intact Neurological: No New Focal Deficit Psy/Mental Status: Alert, Normal Affect, Normal Mood. No: Anxious, Agitated - Problem List Review Problem List Initiated/Reviewed/Updated: Yes - Plan Plan:: Assessment/Plan: Acute: Generalized Weakness, Improved - Likely 2/2 above and poor intake - Continue PT/OT - Thyroid panel: normal - Vit D level: low, started supplement as below Vitamin D-Deficiency, New - Vit D level 21 (low) - Continue Vit D supplement Poor Nutritional Status, Improved - She is able to swallow/eat and drink but not meeting her nutritional requirement - POD 7: PEG tube placement, TF started and tolerated. Atrial Fibrillation, controlled with current therapy, Stable - Carries a hx/o PAF in the past - EKG obtained: Atrial Fibrillation with HR of 120; HR is now controlled - Repeat CXR with stable aspiration findings - BNP/Echo as above - Stroke PPx: CI due to brain bleed; repeat Head CT scan in AM - Changes to rate control regimen: Metoprolol 50 mg po Q8H and Cardizem SA 30 mg po Q6H - Started on eliquis po BID; family agreed Subdural Hematoma and Acute Right Cortical Infarct, likely Resolved at this time - S/p Fall - Has hx/o brain bleed in the past - Head CT scan confirms it: 5 mm in the left temporo-parietal region and 7 mm in the right parietal region, MRI done following day shows slight worsening of bleed- see reports - Risk factor: On Warfarin, fall and hx of CVA/hemorrhagic with subsequent seizure disorder in the past - ED provider spoke to Dr. Schmidt, Neurosurgeon: recommend CT scan in 2 weeks then follow up in the office - Continue to Hold Warfarin and ASA - Follow up MRI: essentially the same from previous study; no acute new abnormal findings - Follow up head CT: improved and stable findings. Resolved: S/P Fall at [facility] - High Fall Risk - Polypharmacy - Fall precautions in place Aspiration Pneumonia, presumptive treatment - She has been altered with fluctuating level of alertness (delirium) - CXR shows right side pneumonia with small pleural effusion - ATB have bed stopped. Continue florastor - Supplemental O2, Routine RT care and Bronchodilators - Sputum Cx/Sx--unable to obtain as patient does not understand/unable to follow instructions; as has been on abx tx for days now will cxl orders - WBC is now normal but CRP continues to go up - Cont [employer] evaluation ongoing daily Small Left Side Pleural Effusion, Likely resolved - IS as directed- if able to cooperate - Aspiration precaution - Serial CXR as needed - BNP elevated, diurese as needed 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 Subtherapeutic INR, Unchanged---Holding warfarin due to continued areas of micro bleeding on head CT - Last INR 1.18 - Continue to hold off Warfarin/ASA due to brain bleed - Recommend switching to DOACs (defer to PCP after discharge) Right Shoulder Pain, New - S/p Fall - Tender with palpation and pain with active movement - XR with 3 views to r/o acute fracture is negative - PRN pain medication; PT/OT S/p Delirium with hallucinations but less agitation/anxiety, Improved - 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5 mg po BID GI prophylaxis: H2B IV BID Aspiration/Fall/Seizure Precautions Additional orders as above CM/SW for d/c planning Disposition is pending, [facility] Code Status: DNR/DNI Possible d/c in AM
[2017-01-30] MEDS ORDERED: Apixaban 5 MG Tab PO SCH (09:00)
[2017-01-30] MEDS: Saccharomyces Boulardii (Probiotic) 250 MG Cap PO SCH ×2 (09:06→21:50)
[2017-01-30] MEDS: Insulin Aspart 100 Units/ML 3 ML Pen SUBCUT SCH ×2 (09:06→22:00)
[2017-01-30] MEDS: Famotidine 20 MG Tab GTUBE SCH (09:07)
[2017-01-30] MEDS: QUEtiapine 25 MG Tab PO SCH (09:08)
[2017-01-30] MEDS: CYCLOSPORINE EYEBOTH SCH ×2 (09:08→22:00)
[2017-01-30] MEDS: carBAMazepine 200 MG Tab PO SCH ×2 (09:12→21:50)
[2017-01-30] MEDS: Cholecalciferol (Vitamin D3) 1,000 Unit Tab PO SCH (09:13)
[2017-01-30] MEDS: Simvastatin 20 MG Tab PO SCH (21:50)
[2017-01-30] MEDS: Apixaban 5 MG Tab PO SCH (21:51)
[2017-01-30] MEDS: Lisinopril 10 MG Tab PO SCH (21:55)
[2017-01-30] MEDS: Acetaminophen 325 MG Tab PO PRN (21:57)
[2017-01-31] MEDS: Diltiazem IR 30 MG Tab PO SCH ×2 (01:31→06:17)
[2017-01-31] MEDS: Levothyroxine 88 MCG Tab PO SCH (06:20)
[2017-01-31] MEDS: Metoprolol Tartrate 50 MG Tab PO SCH (06:20)
[2017-01-31 06:21] VITALS: BP 119/65
--- NOTE | 2017-01-31 06:48 | PCM.DCSUM1 ---
Discharge Summary - Hospital Course Free Text/Narrative:: This is an 86-year-old elderly white female with past medical history of Impaired Vision, HTN, HLD, Atrial Fibrillation via Holter Monitor , HR controlled on Warfarin, Mitral Valve Insufficiency, GERD, Osteoporosis, Hypothyroidism, Trigerminal Neuralgia, Hx/o DVT/TIA, Hx/o Brain Bleed, Hx/o seizure disorder post hemorrhagic stroke, and Anxiety who was brought in the emergency department with complaints of dizziness, "not being herself" and progressive generalized weakness. 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 Per ED notes, patient has been having progressive weakness over the past 3 weeks. Today, she fell at the assisted living facility (she just moved in there about a week ago) but denies hitting her head. No prodromal symptoms. No loss of bowel or bladder control. She does however complaints of a headache. She denies any systemic infection. Patient carries a history of brain bleed in the past and currently on warfarin for stroke prophylaxis. Her initial workup in emergency department shows a CBC remarkable for hemoglobin of 10.8 and hematocrit of 32.9. Her INR is 1.18. Her chemistry is remarkable for BUN of 22, creatinine of 1.2, AST of 39, alkaline phosphatase of 120, total protein of 6.3, and albumin of 2.2. Her phenytoin and carbamazepine levels are within normal limits. Her UA is negative for urinary tract infection. Her chest x-ray shows no acute abnormal finding. 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 Patient is being admitted for brain bleed and generalized weakness. She is DNR/ DNI. Course of hospital stay was with waxing and waning mental status. She had repeat scans of her brain showing microbleeding throughout sites of ischemic CVA. Repeat CT prior to discharge was with improving findings at sites of CVA's , no further microbleeding noted. She had a fib with RVR, was transferred to ICU status for HR control, IV cardizem was used. She is now stable on short acting PO cardizem and metoprolol. Due to persistent afib and resolution of microbleeding, family elects to resume Eliquis for CVA prevention and treatment knowing risk of repeat bleeding is possible with starting this. She worked hard with PT/OT/ST and made significant progress. She was NPO for some time due to dysphagia and unsafe swallowing. Family meeting with care team re: NPO vs feeding tube. Family elected feeding tube to be placed. This was performed by Dr. Gallagher. Patient did well with this and was able to tolerate feedings. ST continued to work with her and was eventually able to tolerate foods. During this time she did experience aspiration syndrome and was treated with IV abx, GI prophylax with pepcid. This cleared with treatment and aggressive ST/RT. She experienced increased anxiety and restlessness. Seroquel was started with good results. SW worked with family at length re: placement. Therapies all recommend SNF for rehabilitation stay. She will be DC'd to SNF for further rehab with f/ up with PCP within one week of discharge. - Discharge Data Discharge Date: 01/31/17 Discharge Disposition: DC/Tfer to SNF 03 Condition: Good - Discharge Diagnosis/Problem(s) (1) Atrial fibrillation with RVR SNOMED Code(s): 908814446023077 ICD Code: I48.91 - UNSPECIFIED ATRIAL FIBRILLATION Status: Chronic Priority: High (2) Subdural hematoma, acute SNOMED Code(s): 97433942 ICD Code: I62.01 - NONTRAUMATIC ACUTE SUBDURAL HEMORRHAGE Status: Acute Priority: High (3) Altered mental status SNOMED Code(s): 907789387 ICD Code: R41.82 - ALTERED MENTAL STATUS, UNSPECIFIED Status: Acute Priority: High Problem Details: Improved significantly Qualifiers: Altered mental status type: disorientation Qualified Code(s): R41.0 - Disorientation, unspecified (4) Fall SNOMED Code(s): 6341586 ICD Code: W19.XXXA - UNSPECIFIED FALL, INITIAL ENCOUNTER Status: Resolved Priority: High Qualifiers: Encounter type: initial encounter Qualified Code(s): W19.XXXA - Unspecified fall, initial encounter (5) Hypovitaminosis D SNOMED Code(s): 10057054 ICD Code: E55.9 - VITAMIN D DEFICIENCY, UNSPECIFIED Status: Chronic Priority: Medium (6) Aspiration syndrome SNOMED Code(s): 81236917 ICD Code: T17.900A - UNSP FB IN RESP TRACT, PART UNSP CAUSING ASPHYX, INIT Status: Resolved Priority: High Qualifiers: Encounter type: initial encounter Qualified Code(s): T17.900A - Unspecified foreign body in respiratory tract, part unspecified causing asphyxiation, initial encounter - Patient Summary/Data Operative Procedure(s) Performed: PEG tube insertion per Dr. Gallagher Complications: None Consults: Consultations 01/13/17 08:13 Consult to Speech Language Pathology [SURGEON ASSISTANT Evaluation and Treatment] [CONS] Routine 01/17/17 12:08 OT Evaluation and Treatment [CONS] Routine 01/17/17 13:44 Consult to Dietary [Consult to Delivery Specialist] [CONS] Routine 01/20/17 11:22 Consult to Speech Language Pathology [SURGEON ASSISTANT Evaluation and Treatment] [CONS] Routine 01/20/17 13:49 Consult to Physician [CONS] Routine -- Dr. Gallagher for PEG tube insertion 01/26/17 01:39 Spiritual Care Follow Up [CONS] Routine Labs Pending at D/C: None Recommended Follow-up Testing/Procedures: Patient DC instructions: Physical & Occupational and Speech Therapy to eval & treat Supplemental oxygen via nasal cannula to maintain sats >90% per feeding tube jevity 1.2 at 63 ml /hr for 20hrs daily with 140 ml water flushes 5 times daily Follow up with PCP within one week of discharge NDD1 diet (pureed) with nectar thick liquids Planned Operative Procedure(s) after DC: None Hospital Course: As above - Patient Instructions Diet: Heart Healthy Diet (NDD1 as above), Drink 8-10+ Glasses/Day Diet, Other: NDD1, pureed with thin liquids Activity: As Tolerated (with assist--therapies as above, PT/OT/ST to continue) Driving: Do Not Drive Showering/Bathing: May Shower Notify Provider of: Fever, Increased Pain, Nausea and/or Vomiting - Discharge Plan Prescriptions/Med Rec: Diltiazem IR [Cardizem] 30 mg PO Q6HR #120 tablet Metoprolol Tartrate [Lopressor] 50 mg PO Q8HR #90 tablet Apixaban [Eliquis] 2.5 mg PO BID #60 tablet carBAMazepine [Carbamazepine ER] 200 mg PO BID #60 cpmp.12hr Cholecalciferol (Vitamin D3) [Vitamin D3] 2,000 units PO DAILY #30 tablet Famotidine [Pepcid] 20 mg PO BID #60 tablet Lisinopril [Prinivil] 10 mg PO BEDTIME #30 tablet QUEtiapine [SEROquel] 12.5 mg PO DAILY #30 tablet Home Medications: Home Meds Acetaminophen [Tylenol Arthritis Pain] 2 tab PO Q8H PRN 04/25/14 [History] Levothyroxine [Synthroid] 88 mcg PO DAILY 04/25/14 [History] Simvastatin [Zocor] 20 mg PO BEDTIME 04/25/14 [History] cycloSPORINE [Restasis] 1 drop EYEBOTH BID 04/25/14 [History] Propylene Glycol/Peg 400 [Systane 0.3-0.4% Eye Drops] 1 drop EYEBOTH BID [History] Bisacodyl [Dulcolax] 5 mg PO DAILY PRN tablet 01/17/17 [Rx] Bisacodyl [Dulcolax] 10 mg RECTAL DAILY PRN supp 01/17/17 [Rx] Cholecalciferol (Vitamin D3) [Vitamin D3] 2,000 units PO DAILY #30 tablet [Rx] Famotidine [Pepcid] 20 mg PO BID #60 tablet 01/17/17 [Rx] Polyethylene Glycol 3350 [MiraLAX] 17 gm PO DAILY PRN packet 01/17/17 [Rx] carBAMazepine [Carbamazepine ER] 200 mg PO BID #60 cpmp.12hr 01/17/17 [Rx] Acetaminophen [Tylenol] 650 mg PO Q4H PRN tablet 01/31/17 [Rx] Apixaban [Eliquis] 2.5 mg PO BID #60 tablet 01/31/17 [Rx] Diltiazem IR [Cardizem] 30 mg PO Q6HR #120 tablet 01/31/17 [Rx] Lisinopril [Prinivil] 10 mg PO BEDTIME #30 tablet 01/31/17 [Rx] Metoprolol Tartrate [Lopressor] 50 mg PO Q8HR #90 tablet 01/31/17 [Rx] QUEtiapine [SEROquel] 12.5 mg PO DAILY #30 tablet 01/31/17 [Rx] Patient Handouts: Aspiration Precautions, Subdural Hematoma, Ischemic Stroke Treated Without Warfarin, [id number], Atrial Fibrillation, [id number], Aspiration Pneumonia Forms: ED Department Discharge Referrals: Hillary Headley NP [Primary Care Provider] - Prince Chand MD [Physician] - - Discharge Summary/Plan Comment DC Time >30 min.: Yes (45 min) - General Info Date of Service: 01/31/17 Admission Dx/Problem (Free Text: Brain Bleed and Stroke Functional Status: Reports: Pain Controlled, Tolerating Diet, Ambulating, Urinating. Denies: New Symptoms - Review of Systems General: Reports: Weakness (improving) HEENT: Reports: No Symptoms Pulmonary: Reports: No Symptoms. Denies: Shortness of Breath Cardiovascular: Reports: No Symptoms. Denies: Chest Pain, Palpitations Gastrointestinal: Reports: No Symptoms. Denies: Abdominal Pain, Nausea, Vomiting Genitourinary: Reports: No Symptoms Musculoskeletal: Reports: No Symptoms Skin: Reports: No Symptoms Neurological: Reports: Confusion (improved), Weakness (improved) - Patient Data Vitals - Most Recent: Last Vital Signs Temp 98.8 F 01/31/17 04:12 Pulse 84 01/31/17 06:20 Resp 16 01/31/17 04:12 BP 119/65 01/31/17 06:20 Pulse Ox 98 01/31/17 04:14 Weight - Most Recent: 119 lb 1.6 oz I&O - Last 24 hours: Intake & Output 01/30/17 01/30/17 01/31/17 14:59 22:59 06:59 Intake Total 430 330 260 Balance 430 330 260 Lab Results - Last 24 hrs: Laboratory Results - last 24 hr 01/30/17 01/31/17 Range/Units 20:33 06:26 POC Glucose 102 105 (83-110) mg/dL Med Orders - Current: Current Medications Acetaminophen (Tylenol) 650 mg PO Q4H PRN PRN Reason: Pain (Mild 1-3)/fever Last Admin: 01/30/17 21:57 Dose: 650 mg Acetaminophen (Tylenol) 650 mg RECTAL Q4H PRN PRN Reason: Pain/Fever Hydrocodone Bitart/Acetaminophen ([place] 325-5 Mg) 1 tab PO Q4H PRN PRN Reason: Pain (moderate 4-6) Apixaban (Eliquis) 2.5 mg PO BID MICHELLE Last Admin: 01/30/17 21:51 Dose: 2.5 mg Bisacodyl (Dulcolax) 5 mg PO DAILY PRN PRN Reason: Constipation Last Admin: 01/19/17 04:58 Dose: 5 mg Bisacodyl (Dulcolax) 10 mg RECTAL DAILY PRN PRN Reason: Constipation Last Admin: 01/15/17 06:31 Dose: 10 mg Carbamazepine (Tegretol Tab) 200 mg PO BID [facility] Last Admin: 01/30/17 21:50 Dose: 200 mg Cholecalciferol (Vitamin D3) 2,000 units PO DAILY [facility] Last Admin: 01/30/17 09:13 Dose: 2,000 units Diltiazem HCl (Cardizem Ir) 30 mg PO Q6HR [facility] Last Admin: 01/31/17 06:17 Dose: 30 mg Docusate Sodium (Colace) 100 mg PO BID PRN PRN Reason: Constipation Famotidine (Pepcid) 20 mg GTUBE DAILY [facility] Last Admin: 01/30/17 09:07 Dose: 20 mg Hydralazine HCl (Apresoline) 10 mg IVPUSH Q4H PRN PRN Reason: Hypertension Hydromorphone HCl (Dilaudid) 0.25 mg IVPUSH Q2H PRN PRN Reason: Pain (severe 7-10) Last Admin: 01/18/17 19:12 Dose: 0.25 mg Insulin Aspart (Novolog) 0 unit SUBCUT [facility] PRN Reason: Protocol Last Admin: 01/30/17 22:00 Dose: Not Given Levothyroxine Sodium (Synthroid) 88 mcg PO ACBRK [facility] Last Admin: 01/31/17 06:20 Dose: 88 mcg Lisinopril (Prinivil) 10 mg PO BEDTIME [facility] Last Admin: 01/30/17 21:55 Dose: Not Given Lorazepam (Ativan) 2 mg IVPUSH Q4H PRN PRN Reason: Seizures Lorazepam (Ativan) 0.25 mg IVPUSH Q6H PRN PRN Reason: Anxiety Last Admin: 01/23/17 01:07 MDT Dose: 0.25 mg Metoprolol Tartrate (Lopressor) 5 mg IVPUSH Q4H PRN PRN Reason: Tachycardia Last Admin: 01/23/17 06:37 Dose: 5 mg Metoprolol Tartrate (Lopressor) 50 mg PO Q8HR [facility] Last Admin: 01/31/17 06:20 Dose: 50 mg Ondansetron HCl (Zofran) 4 mg IV Q6H PRN PRN Reason: Nausea/Vomiting Last Admin: 01/14/17 09:42 Dose: 4 mg Cyclosporine ( Restasis) Ophth Solution 0 each EYEBOTH BID [facility] Last Admin: 01/30/17 22:00 Dose: 1 each [Systane 0.3-0.4% Eye Drops] 1 D Own Med 0 each EYEBOTH BID [facility] Last Admin: 01/30/17 22:00 Dose: 1 each Polyethylene Glycol (Miralax) 17 gm PO DAILY PRN PRN Reason: Constipation Last Admin: 01/14/17 06:39 Dose: 17 gm Quetiapine Fumarate (Seroquel) 12.5 mg PO DAILY [facility] Last Admin: 01/30/17 09:08 Dose: 12.5 mg Saccharomyces Boulardii (Florastor) 250 mg PO BID [facility] Last Admin: 01/30/17 21:50 Dose: 250 mg Senna/Docusate Sodium (Senna Plus) 1 tab PO BID PRN PRN Reason: Constipation Last Admin: 01/19/17 08:58 Dose: 1 tab Simvastatin (Zocor) 20 mg PO BEDTIME [facility] Last Admin: 01/30/17 21:50 Dose: 20 mg Temazepam (Restoril) 7.5 mg PO BEDTIME PRN PRN Reason: Sleep Last Admin: 01/24/17 02:39 Dose: 7.5 mg Discontinued Medications Albuterol/Ipratropium (Duoneb 3.0-0.5 Mg/3 Ml) 3 ml NEB Q4H PRN PRN Reason: Shortness Of Breath/wheezing Apixaban (Eliquis) 5 mg PO BID [facility] Last Admin: 01/30/17 09:06 Dose: 5 mg Bacitracin (Bacitracin Oint) Confirm Administered Dose 15 gm .ROUTE .STK-MED ONE Stop: 01/21/17 14:14 Last Admin: 01/21/17 14:10 Dose: 15 gm Barium Sulfate (E-Z-Hd) 340 gm PO ONETIME ONE Stop: 01/25/17 08:45 Last Admin: 01/25/17 16:24 Dose: Not Given Barium Sulfate (E-Z-Paste) 454 gm PO ONETIME ONE Stop: 01/25/17 08:45 Last Admin: 01/25/17 16:24 Dose: Not Given Barium Sulfate (Liquid E-Z Paque) 355 ml PO PREPRO ONE Stop: 01/25/17 08:45 Last Admin: 01/25/17 16:24 Dose: Not Given Bumetanide (Bumex) 0.5 mg IVPUSH ONETIME ONE Stop: 01/17/17 21:01 Last Admin: 01/17/17 22:13 Dose: 0.5 mg Bumetanide (Bumex) 1 mg IVPUSH ONETIME ONE Stop: 01/18/17 12:06 Last Admin: 01/18/17 13:20 Dose: 1 mg Bumetanide (Bumex) 0.5 mg IVPUSH ONETIME ONE Stop: 01/19/17 07:01 Bumetanide (Bumex) 1 mg IVPUSH ONETIME ONE Stop: 01/19/17 07:01 Last Admin: 01/19/17 06:15 Dose: 1 mg Carbamazepine (Tegretol) 300 mg PO TID [facility] Last Admin: 01/12/17 16:28 Dose: 300 mg Carbamazepine (Tegretol) 200 mg PO TID [facility] Last Admin: 01/12/17 20:09 Dose: 200 mg Carbamazepine (Tegretol Tab) 200 mg PO TID [facility] Last Admin: 01/14/17 08:18 Dose: 200 mg Carbamazepine (Tegretol) 150 mg PO TID [facility] Last Admin: 01/14/17 16:01 Dose: Not Given Carbamazepine (Tegretol) 150 mg PO BID [facility] Last Admin: 01/17/17 08:45 Dose: 150 mg Diazepam (Valium.) 5 mg PO ONETIME ONE Stop: 01/14/17 11:07 Last Admin: 01/14/17 11:27 Dose: 5 mg Diltiazem HCl (Cardizem Cd) 120 mg PO DAILY [facility] Last Admin: 01/18/17 08:19 Dose: 120 mg Diltiazem HCl (Cardizem) 60 mg PO ONETIME ONE Stop: 01/18/17 12:16 Last Admin: 01/18/17 13:20 Dose: 60 mg Diltiazem HCl (Cardizem) 30 mg PO ONETIME ONE Stop: 01/18/17 12:16 Last Admin: 01/18/17 13:20 Dose: 30 mg Diltiazem HCl (Cardizem Cd) 240 mg PO DAILY [facility] Diltiazem HCl (Cardizem Cd) 120 mg PO DAILY [facility] Last Admin: 01/20/17 08:01 Dose: 120 mg Diltiazem HCl (Diltiazem) 10 mg IVPUSH ONETIME ONE Stop: 01/19/17 11:36 Diltiazem HCl (Cardizem Ir) 60 mg PO Q6HR [facility] Last Admin: 01/23/17 12:01 Dose: 60 mg Famotidine (Pepcid) 20 mg IVPUSH BID [facility] Stop: 01/16/17 23:59 Last Admin: 01/16/17 20:18 Dose: 20 mg Famotidine (Pepcid) 20 mg IVPUSH DAILY [facility] Last Admin: 01/22/17 08:23 Dose: 20 mg Furosemide (Lasix) 20 mg PO DAILY PRN PRN Reason: Edema Furosemide (Lasix) 20 mg PO ONETIME ONE Stop: 01/17/17 07:31 Last Admin: 01/17/17 08:48 Dose: 20 mg Furosemide (Lasix) 20 mg IVPUSH NOW ONE Stop: 01/23/17 14:48 Last Admin: 01/23/17 14:10 Dose: Not Given Furosemide (Lasix) 10 mg IVPUSH NOW ONE Stop: 01/26/17 14:35 Last Admin: 01/26/17 14:51 Dose: 10 mg Gabapentin (Neurontin) 100 mg PO DAILY [facility] Last Admin: 01/12/17 09:10 Dose: 100 mg Promethazine HCl 12.5 mg/ (Sodium Chloride) 50.5 mls @ 100 mls/hr IV Q6H PRN PRN Reason: Nausea/Vomiting Magnesium Sulfate 2 gm/ Premix 50 mls @ 25 mls/hr IV ONETIME ONE Stop: 01/13/17 12:59 Last Admin: 01/13/17 12:25 Dose: 25 mls/hr Dextrose/Sodium Chloride (Dextrose 5%-Normal Saline) 1,000 mls @ 75 mls/hr IV ASDIRECTED [facility] Last Admin: 01/17/17 04:53 Dose: 75 mls/hr Magnesium Sulfate 2 gm/ Premix 50 mls @ 25 mls/hr IV ONETIME ONE Stop: 01/15/17 10:59 Last Admin: 01/15/17 09:36 Dose: 25 mls/hr Azithromycin 500 mg/ Sodium (Chloride) 250 mls @ 250 mls/hr IV ONETIME ONE Stop: 01/15/17 20:25 Last Admin: 01/15/17 20:40 Dose: 250 mls/hr Ceftriaxone Sodium 1 gm/ (Sodium Chloride) 100 mls @ 200 mls/hr IV ONETIME ONE Stop: 01/15/17 21:00 Last Admin: 01/15/17 21:52 Dose: 200 mls/hr Ceftriaxone Sodium 1 gm/ (Sodium Chloride) 100 mls @ 200 mls/hr IV Q24H [facility] Last Admin: 01/16/17 19:36 Dose: Not Given Ceftriaxone Sodium 1 gm/ (Sodium Chloride) 100 mls @ 200 mls/hr IV Q24H [facility] Last Admin: 01/17/17 11:11 Dose: 200 mls/hr Azithromycin 500 mg/ Sodium (Chloride) 250 mls @ 250 mls/hr IV Q24H [facility] Last Admin: 01/17/17 10:41 Dose: Not Given Azithromycin 500 mg/ Sodium (Chloride) 250 mls @ 250 mls/hr IV ONETIME ONE Stop: 01/16/17 14:44 Last Admin: 01/16/17 14:20 Dose: 250 mls/hr Metronidazole 500 mg/ Premix 100 mls @ 100 mls/hr IV Q8H [facility] Last Admin: 01/20/17 09:46 Dose: 100 mls/hr Ceftriaxone Sodium 1 gm/ (Dextrose/Water) 100 mls @ 200 mls/hr IV Q24H [facility] Ceftriaxone Sodium 1 gm/ (Dextrose/Water) 100 mls @ 200 mls/hr IV Q24H [facility] Last Admin: 01/18/17 11:29 Dose: 200 mls/hr Piperacillin Sod/Tazobactam (Sod 4.5 gm/ Dextrose/Water) 100 mls @ 200 mls/hr IV ONETIME ONE Stop: 01/18/17 12:29 Last Admin: 01/18/17 13:21 Dose: 200 mls/hr Piperacillin Sod/Tazobactam (Sod 4.5 gm/ Dextrose/Water) 100 mls @ 25 mls/hr IV Q8H [facility] Stop: 01/20/17 17:00 Last Admin: 01/20/17 11:44 Dose: 25 mls/hr Esmolol HCl (Brevibloc In Ns Premix) 2.5 gm in 250 mls @ 0 mls/hr IV TITRATE MICHELLE; 50 MCG/KG/MIN PRN Reason: Protocol Diltiazem HCl 125 mg/ Sodium (Chloride) 125 mls @ 5 mls/hr IV TITRATE MICHELLE; 5 MG /HR PRN Reason: Protocol Diltiazem HCl 125 mg/ Sodium (Chloride) 125 mls @ 2.5 mls/hr IV TITRATE MICHELLE; 2.5 MG/HR PRN Reason: Protocol Last Titration: 01/20/17 09:29 Dose: 0 mg/hr, 0 mls/hr Ampicillin Sodium/Sulbactam (Sodium 1.5 gm/ Sodium Chloride) 100 mls @ 200 mls/ hr IV Q12H [facility] Last Admin: 01/21/17 08:59 Dose: 200 mls/hr Potassium Chloride 10 meq/ (Premix) 100 mls @ 100 mls/hr IV Q1H [facility] Stop: 01/21/17 12:59 Last Admin: 01/21/17 12:06 Dose: Not Given Potassium Chloride/Dextrose/Sod Cl (D5 Ns With 20 Meq Kcl) 1,000 mls @ 75 mls/ hr IV ASDIRECTED [facility] Last Admin: 01/22/17 00:29 Dose: 75 mls/hr Potassium Chloride 10 meq/ (Premix) 100 mls @ 100 mls/hr IV Q1H [facility] Stop: 01/21/17 11:29 Last Admin: 01/21/17 11:40 Dose: 100 mls/hr Piperacillin Sod/Tazobactam (Sod 4.5 gm/ Dextrose/Water) 100 mls @ 25 mls/hr IV Q8H [facility] Last Admin: 01/25/17 05:59 Dose: 25 mls/hr Ampicillin Sodium/Sulbactam (Sodium 1.5 gm/ Sodium Chloride) 100 mls @ 200 mls/ hr IV ONETIME ONE Stop: 01/21/17 14:31 Last Admin: 01/21/17 15:40 Dose: 200 mls/hr Magnesium Sulfate 2 gm/ Premix 50 mls @ 25 mls/hr IV ONETIME ONE Stop: 01/23/17 11:45 Last Admin: 01/23/17 12:00 Dose: 25 mls/hr Levalbuterol HCl (Xopenex) 1.25 mg INH QIDRT [facility] Last Admin: 01/23/17 10:09 Dose: 1.25 mg Lisinopril (Prinivil) 20 mg PO DAILY [facility] Last Admin: 01/23/17 11:05 Dose: Not Given Lisinopril (Prinivil) 10 mg PO DAILY [facility] Lisinopril (Prinivil) 10 mg PO BID [facility] Last Admin: 01/26/17 09:25 Dose: Not Given Lorazepam (Ativan) 0.25 mg IV Q6H PRN PRN Reason: Anxiety Last Admin: 01/17/17 05:53 Dose: 0.25 mg Lorazepam (Ativan) 0.25 mg IV ONETIME ONE Stop: 01/18/17 09:16 Last Admin: 01/18/17 09:29 Dose: 0.25 mg Magnesium Oxide (Magnesium Oxide) 400 mg PO ONETIME ONE Stop: 01/13/17 08:01 Last Admin: 01/13/17 12:13 Dose: Not Given Magnesium Oxide (Magnesium Oxide) 800 mg PO ONETIME ONE Stop: 01/18/17 08:31 Last Admin: 01/18/17 08:24 Dose: 800 mg Magnesium Sulfate (Pharmacy To Dose - Magnesium Replacement) 1 dose .XX ASDIRECTED [facility] Metoprolol Succinate (Toprol Xl) 50 mg PO DAILY [facility] Last Admin: 01/18/17 08:22 Dose: 50 mg Metoprolol Succinate (Toprol Xl) 100 mg PO BID [facility] Last Admin: 01/20/17 20:23 Dose: 100 mg Metoprolol Succinate (Toprol Xl) 50 mg PO BID [facility] Last Admin: 01/23/17 10:58 Dose: Not Given Metoprolol Succinate (Toprol Xl) 25 mg PO ONETIME ONE Stop: 01/23/17 09:31 Last Admin: 01/23/17 09:30 Dose: 25 mg Modafinil (Provigil) 50 mg PO DAILY [facility] Last Admin: 01/15/17 09:26 Dose: 50 mg Modafinil (Provigil) 100 mg PO DAILY [facility] Last Admin: 01/17/17 08:47 Dose: 100 mg Ondansetron HCl (Zofran Odt) 4 mg PO Q6H [facility] Last Admin: 01/21/17 12:07 Dose: Not Given Phenytoin Sodium (Phenytoin) 100 mg PO BID [facility] Last Admin: 01/15/17 20:46 Dose: Not Given Potassium Chloride (Pharmacy To Dose - Potassium Replacement) 1 dose .XX ASDIRECTED [facility] Propofol (Diprivan 20 Ml) Confirm Administered Dose 200 mg .ROUTE .STK-MED ONE Stop: 01/21/17 12:19 Quetiapine Fumarate (Seroquel) 25 mg PO DAILY [facility] Last Admin: 01/15/17 09:26 Dose: 25 mg Quetiapine Fumarate (Seroquel) 25 mg PO ONETIME ONE Stop: 01/18/17 11:05 Last Admin: 01/18/17 11:23 Dose: 25 mg Quetiapine Fumarate (Seroquel) 25 mg PO DAILY [facility] Last Admin: 01/24/17 09:26 Dose: 25 mg Saccharomyces Boulardii (Florastor) 250 mg PO DAILY [facility] Last Admin: 01/17/17 08:31 Dose: 250 mg - Exam Quality Assessment: Reports: DVT Prophylaxis General: Reports: Alert, Cooperative, No Acute Distress HEENT: Reports: Pupils Equal, EOMI, Mucous Membr. Moist/Levan Neck: Reports: Supple Lungs: Reports: Clear to Auscultation, Normal Respiratory Effort, Decreased Breath Sounds (bases) Cardiovascular: Reports: Irregular Rhythm GI/Abdominal Exam: Normal Bowel Sounds, Soft, Non-Tender (Female) Exam: Deferred Rectal (Female) Exam: Deferred Extremities: Normal Inspection, No Pedal Edema, Normal Capillary Refill Neurological: Reports: Strength Equal Bilateral, Other (intermittent mild confusion- significantly improved) Psy/Mental Status: Reports: Alert, Normal Mood, Other (pleasant and interactive this morning) *Q Meaningful Use (DIS) - VTE *Q VTE Criteria *Q: - Stroke *Q Stroke Criteria *Q: - AMI *Q AMI Criteria *Q:
[2017-01-31] MEDS: Cholecalciferol (Vitamin D3) 1,000 Unit Tab PO SCH (08:33)
[2017-01-31] MEDS: carBAMazepine 200 MG Tab PO SCH (08:33)
[2017-01-31] MEDS: Saccharomyces Boulardii (Probiotic) 250 MG Cap PO SCH (08:33)
[2017-01-31] MEDS: QUEtiapine 25 MG Tab PO SCH (08:34)
[2017-01-31] MEDS: Famotidine 20 MG Tab GTUBE SCH (08:34)
[2017-01-31] MEDS: Insulin Aspart 100 Units/ML 3 ML Pen SUBCUT SCH (08:34)
[2017-01-31] MEDS: Apixaban 5 MG Tab PO SCH (08:34)
[2017-01-31] MEDS: CYCLOSPORINE EYEBOTH SCH (08:35)
== END 2017-01-31 09:48 | DRG 64 ==
LOC: JD.ED 21:02 → JD.MS 23:28 → JD.ICU 01-19 12:46 → JD.MS 01-22 10:14
PROVIDERS: ADMIT Internal Medicine; ATTEND Internal Medicine Cardiovascular Disease
PROC: 0DH63UZ Insertion of Feeding Device into Stomach, Percutaneous Approach (ICD-10-PCS; principal; 2017-01-21)
PROC: 3E0G76Z Introduction of Nutritional Substance into Upper GI, Via Natural or Artificial Opening (ICD-10-PCS; 2017-01-21)
DX: S06.5X9A Traumatic subdural hemorrhage with loss of consciousness of unspecified duration, initial encounter (principal); I62.01 Nontraumatic acute subdural hemorrhage; I63.9 Cerebral infarction, unspecified; I48.91 Unspecified atrial fibrillation; E78.00 Pure hypercholesterolemia, unspecified; G93.40 Encephalopathy, unspecified; J69.0 Pneumonitis due to inhalation of food and vomit; I48.92 Unspecified atrial flutter; G89.29 Other chronic pain; M54.2 Cervicalgia; T17.900A Unspecified foreign body in respiratory tract, part unspecified causing asphyxiation, initial encounter; Y92.099 Unspecified place in other non-institutional residence as the place of occurrence of the external cause; Z86.73 Personal history of transient ischemic attack (TIA), and cerebral infarction without residual deficits; W19.XXXA Unspecified fall, initial encounter; R53.1 Weakness; I69.991 Dysphagia following unspecified cerebrovascular disease; R79.1 Abnormal coagulation profile; Z96.659 Presence of unspecified artificial knee joint; Z91.81 History of falling; I10 Essential (primary) hypertension; E78.5 Hyperlipidemia, unspecified; I48.2 Chronic atrial fibrillation; I34.0 Nonrheumatic mitral (valve) insufficiency; K21.9 Gastro-esophageal reflux disease without esophagitis; M19.90 Unspecified osteoarthritis, unspecified site; M81.0 Age-related osteoporosis without current pathological fracture; E03.9 Hypothyroidism, unspecified; M46.90 Unspecified inflammatory spondylopathy, site unspecified; Z86.718 Personal history of other venous thrombosis and embolism; G40.909 Epilepsy, unspecified, not intractable, without status epilepticus; F32.9 Major depressive disorder, single episode, unspecified; H54.7 Unspecified visual loss; Z88.1 Allergy status to other antibiotic agents; Z79.01 Long term (current) use of anticoagulants; Z79.899 Other long term (current) drug therapy; Z66 Do not resuscitate; G50.0 Trigeminal neuralgia; E55.9 Vitamin D deficiency, unspecified; M25.511 Pain in right shoulder
CPT/HCPCS: 36415; 70450; 71010; 80053; 80156; 80185; 81001; 84443; 85025; 85610; 85730; 93005; 99285; P9612; 00170; 51798; 70551; 70551-26; 71020; 71020-26; 73030-26-RT; 73030-RT; 74230; 74230-26; 80048; 82272; 82306; 82553; 82962; 83735; 83880; 84484; 84550; 86140; 87040; 87641; 92526-GN; 92610-GN; 92611-GN; 93306; 94640; 94760; 94761; 97110-GO; 97110-GP; 97116-GP; 97140-GO; 97162-GP; 97163-GP; 97167-GO; 97530-GO; 97530-GP; 97535-GO; 99223; 99231; 99232; 99233; 99239; A9270-GY; J0295; J0456; J0696; J1170; J2060; J2405; J2543; J2704; J3475; J3480; J3490; J7030; J7042; J7050; J7060

== ENCOUNTER 2017-05-06 20:02 | Emergency (ER) | payer MEDICARE, OTHER ==
[2017-05-06 20:16] VITALS: BP 130/51
--- NOTE | 2017-05-06 21:13 | EDM.PDOC ---
ED HPI GENERAL MEDICAL PROBLEM - General Chief Complaint: Abdominal Pain Stated Complaint: PULLED FEEDING TUBE OUT Time Seen by Provider: 05/06/17 20:52 Source of Information: Reports: Family (Daughter) History Limitations: Reports: Physical Impairment (Dementia + expressive aphasia ) - History of Present Illness INITIAL COMMENTS - FREE TEXT/NARRATIVE: The patient is a resident of [facility]. 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 She had a PEG tube placed in December [address] Den Gallagher, and while the patient is now able to eat, she still receives partial feedings through the PEG tube. According to the patient's daughter, the staff at the [facility] was getting the patient ready for bed around 18:45 tonight, when the patient accidentally pulled her PEG tube out. The PEG tube was brought with the patient to the ED. The patient's PCP is Dr. Chand. - Related Data Allergies Allergy/AdvReac Type Severity Reaction Status Date / Time Cephalosporins AdvReac Nausea Verified 01/12/17 07:09 Home Meds: Home Meds Acetaminophen [Tylenol Arthritis Pain] 2 tab PO Q8H PRN 04/25/14 [History] Levothyroxine [Synthroid] 88 mcg PO DAILY 04/25/14 [History] Simvastatin [Zocor] 20 mg PO BEDTIME 04/25/14 [History] cycloSPORINE [Restasis] 1 drop EYEBOTH BID 04/25/14 [History] Propylene Glycol/Peg 400 [Systane 0.3-0.4% Eye Drops] 1 drop EYEBOTH BID [History] Bisacodyl [Dulcolax] 5 mg PO DAILY PRN tablet 01/17/17 [Rx] Bisacodyl [Dulcolax] 10 mg RECTAL DAILY PRN supp 01/17/17 [Rx] Cholecalciferol (Vitamin D3) [Vitamin D3] 2,000 units PO DAILY #30 tablet [Rx] Famotidine [Pepcid] 20 mg PO BID #60 tablet 01/17/17 [Rx] Polyethylene Glycol 3350 [MiraLAX] 17 gm PO DAILY PRN packet 01/17/17 [Rx] carBAMazepine [Carbamazepine ER] 200 mg PO BID #60 cpmp.12hr 01/17/17 [Rx] Acetaminophen [Tylenol] 650 mg PO Q4H PRN tablet 01/31/17 [Rx] Apixaban [Eliquis] 2.5 mg PO BID #60 tablet 01/31/17 [Rx] Diltiazem IR [Cardizem] 30 mg PO Q6HR #120 tablet 01/31/17 [Rx] Lisinopril [Prinivil] 10 mg PO BEDTIME #30 tablet 01/31/17 [Rx] Metoprolol Tartrate [Lopressor] 50 mg PO Q8HR #90 tablet 01/31/17 [Rx] QUEtiapine [SEROquel] 12.5 mg PO DAILY #30 tablet 01/31/17 [Rx] Past Medical History HEENT History: Reports: Impaired Vision Cardiovascular History: Reports: Afib (paroxysmal), High Cholesterol, Hypertension, Other (See Below) (Mitral valve regurgitation) Gastrointestinal History: Reports: GERD [employer]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 Den Gallagher) Female Surgical History: Reports: Breast Biopsy, Hysterectomy Musculoskeletal Surgical History: Reports: Shoulder Surgery (Left rotator cuff repair, arthroscopic), Other (See Below) (Left femur ruddy x 2) Social & Family History - Family History Family Medical History: Noncontributory Cardiac: Reports: [place] Neurological: Reports: Other (See Below) Other Neurological Family History: ALS Oncologic: Reports: Leukemia - Tobacco Use Smoking Status *Q: Never Smoker Second Hand Smoke Exposure: No - Caffeine Use Caffeine Use: Reports: Coffee, Tea Caffeine Use Comment: states around 4 cups a day - Alcohol Use Alcohol Use History: Yes Days Per Week of Alcohol Use: 0 Alcohol Use Frequency: Rarely - Recreational Drug Use Recreational Drug Use: No - Living Situation & Occupation Living situation: Reports: , [facility] [place] Occupation: Retired ED ROS GENERAL - Review of Systems Review Of Systems: ROS reveals no pertinent complaints other than HPI. ED EXAM, GI/ABD - Physical Exam Exam: See Below Exam Limited By: No Limitations General Appearance: Alert, WD/WN, No Apparent Distress GI/Abdominal Exam: Normal Bowel Sounds, Soft, Non-Tender, No Organomegaly, No Distention, No Abnormal Bruit, No Mass, Other (PEG stoma in the epigastric region.) ED ABDOMINAL/GI PROCEDURES - Additional/Other Procedure(s) Procedure(s) (Free Text): Procedure: Replacement of PEG tube Indication: PEG tube accidentally pulled out The PEG tube that had accidentally been removed was brought with the patient. It was inspected and appeared to be intact. It was washed. K-Y jelly was applied , and the tube replaced in the patient's anterior abdominal wall stoma, without difficulty. The balloon was inflated to 5 mL with sterile saline. The patient tolerated the procedure well. A fresh dressing was applied per the RN. Course - Vital Signs Last Recorded V/S: Last Vital Signs Temp 36.3 C 05/06/17 20:15 Pulse 75 05/06/17 20:15 Resp 20 05/06/17 20:15 BP 130/51 L 05/06/17 20:15 Pulse Ox 97 05/06/17 20:15 - Re-Assessments/Exams Free Text/Narrative Re-Assessment/Exam: 05/06/17 21:10 As above, the PEG tube was placed and filled with 5 mL sterile saline. The PEG was most likely accidentally removed because of under-inflation of the balloon. Departure - Departure Time of Disposition: 21:11 Disposition: Home, Self-Care 01 Condition: Good Clinical Impression: PEG (percutaneous endoscopic gastrostomy) adjustment/replacement/removal - Discharge Information Instructions: PEG Tube Home Guide, [id number] Referrals: Prince Chand MD [Primary Care Provider] - Forms: ED Department Discharge Additional Instructions: Mrs. Nair was seen in the emergency room after accidentally pulling her PEG tube out. On inspection of her PEG tube, we found that it was under inflated, with only 2 mL of sterile saline, instead of 5 mL, as recommended. Her PEG tube was placed without difficulty, and the balloon filled with 5 mL of sterile saline. The PEG tube can be used as usual, with the usual maintenance. If any other problems, please do not hesitate to return Mrs. Nair to the ER.
== END 2017-05-06 21:18 | disposition home or self-care (01) ==
LOC: JD.ED 20:02
DX: Z43.1 Encounter for attention to gastrostomy (principal); I69.320 Aphasia following cerebral infarction; I10 Essential (primary) hypertension; E78.00 Pure hypercholesterolemia, unspecified; E03.9 Hypothyroidism, unspecified; Z88.1 Allergy status to other antibiotic agents; Z79.899 Other long term (current) drug therapy
CPT/HCPCS: 43760; 99283

== ENCOUNTER 2017-07-05 23:16 | Emergency (ER) | payer MEDICARE, OTHER ==
[2017-07-05 23:25] VITALS: BP 109/66
--- NOTE | 2017-07-05 23:30 | EDM.PDOC ---
ED HPI GENERAL MEDICAL PROBLEM - General Chief Complaint: Syncope Stated Complaint: [facility] Time Seen by Provider: 07/05/17 23:23 Source of Information: Reports: Patient, Custodial Records History Limitations: Reports: Altered Mental Status (has known dementia. Is confused. ) - History of Present Illness INITIAL COMMENTS - FREE TEXT/NARRATIVE: 87-year-old female from local [place] [facility] arrives in the ED per ambulance. Nurses at the [place] [facility] report that she was on the toilet when she developed a spell where she was unresponsive in her eyes seem to roll back up in her head. This reportedly lasted about 5 minutes. Unclear what if her blood pressure or heart rate were assessed at that time. Patient of course has dementia and has no recollection of what of what has happened to her. There was no reported seizure-like activity. She is known to be losing weight and health has been dwindling for a period of time. The concern was that she may have had a stroke as she apparently complained of some pain at the back of her head. However she is able to talk and move all extremities at this time with no evidence of cerebrovascular accident or focal neurological deficit. Her speech is infused and she has some troubles obeying commands. One of the nurses currently working in the department tonight works at the [place] [facility] where she resides and indicates that she seems to be her normal self at this time. Apparently she falls fairly often. Currently has a sore on her left lower tib- fib that is healing. No fever is evident on initial assessment. 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 She is in atrial fibrillation with rate of 60-95/m. Her no signs of acute ischemia Onset: Today Onset Date: 07/05/17 Onset Time: 22:45 Duration: Minutes: Location: Reports: Other (Syncopal event with loss of consciousness for) Quality: Reports: Other (Sudden episode of unresponsiveness while on the toilet. ) Severity: Severe Improves with: Reports: Other (Her condition is improved at time . She's regained full speech and full mobility. It is unclear whether she was lying on the floor after the event which would've restored her blood pressure.) Context: Reports: Other (Was sitting on the toilet at the time. Unclear whether she was defecating or voiding.) Associated Symptoms: Reports: Confusion, Loss of Appetite. Denies: Chest Pain ( Chronic confusion due to dementia.), Cough, cough w sputum, Diaphoresis, Fever/ Chills, Headaches (Apparently she has poor appetite and is continued to lose weight gradually), Malaise, Nausea/Vomiting, Rash, Seizure, Shortness of Breath , Syncope Treatments BEDSPREAD SEAMER: Reports: Other (see below) (None.) - Related Data Allergies Allergy/AdvReac Type Severity Reaction Status Date / Time Cephalosporins AdvReac Nausea Verified 01/12/17 07:09 Home Meds: Home Meds Acetaminophen [Tylenol Arthritis Pain] 1 tab PO TID PRN 04/25/14 [History] Levothyroxine [Synthroid] 88 mcg PO DAILY 04/25/14 [History] Simvastatin [Zocor] 20 mg PO BEDTIME 04/25/14 [History] cycloSPORINE [Restasis] 1 drop EYEBOTH BID 04/25/14 [History] Propylene Glycol/Peg 400 [Systane 0.3-0.4% Eye Drops] 1 drop EYEBOTH BID [History] Cholecalciferol (Vitamin D3) [Vitamin D3] 2,000 units PO DAILY #30 tablet [Rx] Famotidine [Pepcid] 20 mg PO BID #60 tablet 01/17/17 [Rx] carBAMazepine [Carbamazepine ER] 200 mg PO BID #60 cpmp.12hr 01/17/17 [Rx] Apixaban [Eliquis] 2.5 mg PO BID #60 tablet 01/31/17 [Rx] Diltiazem IR [Cardizem] 30 mg PO Q6HR #120 tablet 01/31/17 [Rx] Lisinopril [Prinivil] 10 mg PO BEDTIME #30 tablet 01/31/17 [Rx] Acetaminophen [Tylenol] 650 mg PO TID 07/06/17 [History] Compression Socks, Medium [Futuro Restoring] 1 each MC ASDIRECTED 07/06/17 [ History] Diltiazem [Diltiazem SR] 120 mg PO DAILY #30 cap.er 07/06/17 [Rx] Fructooligosaccharides/Polydex [Hyfiber with Fos Liquid] 1 dose PO ASDIRECTED PRN 07/06/17 [History] Furosemide 20 mg PO ACDINNER 07/06/17 [History] Metoprolol Tartrate [Lopressor] 50 mg PO 05,13,21 07/06/17 [History] Nut Tx, Lact-Reduced, Iron [Boost VHC] 90 ml PO X07/06/17 [History] QUEtiapine [SEROquel] 50 mg PO BEDTIME 07/06/17 [History] Past Medical History HEENT History: Reports: Impaired Vision Other HEENT History: partial tooth Cardiovascular History: Reports: Afib (on Eliquis 2.5mg BID.), High Cholesterol , Hypertension, Other (See Below) (Mitral valve regurgitation) Other Cardiovascular History: mitral valve insufficiency, atrial flutter Respiratory History: Reports: None Gastrointestinal History: Reports: GERD Genitourinary History: Reports: Other (See Below) Other Genitourinary History: dysuria [place] [employer] [employer] History: Reports: Musculoskeletal History: Reports: Osteoarthritis (spine), Osteoporosis Other Musculoskeletal History: degenerative joint disease, inflammatory spondylopathy Neurological History: Reports: CVA (Hemorrhagic), Other (See Below) (Dementia, trigeminal neuralgia) Other Neuro History: hx of "brain bleed", trigeminal neuralgia, states "fake seizures", written dx of epilepsy ; pt had 4 head bleeds with the stroke Psychiatric History: Reports: Anxiety, Dementia (Her dementia. She no longer recognizes any of her family members. She continues to Her in gibberish most of the time. She tends to have some dollars effect where she was up most the night and wonders the hallways.) Endocrine/Metabolic History: Reports: Hypothyroidism Hematologic History: Reports: Other (See Below) Other Hematologic History: on eliquis - Infectious Disease History Infectious Disease History: Reports: Chicken Pox - Past Surgical History HEENT Surgical History: Reports: Eye Surgery (cornea surgery), Tonsillectomy GI Surgical History: Reports: Other (See Below) (PEG placed Dec [address] Den Gallagher) Female Surgical History: Reports: Breast Biopsy, Hysterectomy Musculoskeletal Surgical History: Reports: Shoulder Surgery (Left rotator cuff repair, arthroscopic), Other (See Below) (Left femur ruddy x 2) Social & Family History - Family History Family Medical History: Noncontributory Cardiac: Reports: [place] Neurological: Reports: Other (See Below) Other Neurological Family History: ALS Oncologic: Reports: Leukemia - Tobacco Use Smoking Status *Q: Never Smoker Second Hand Smoke Exposure: No - Caffeine Use Caffeine Use: Reports: Coffee, Tea Caffeine Use Comment: states around 4 cups a day - Alcohol Use Days Per Week of Alcohol Use: 0 - Recreational Drug Use Recreational Drug Use: No - Living Situation & Occupation Living situation: Reports: , [place] [facility] [place] [facility] Occupation: Retired ED ROS GENERAL - Review of Systems Review Of Systems: Unable To Obtain (Unable to obtain with any degree of certainty due to the patient's having dementia.) ED EXAM, NEURO - Physical Exam Exam: See Below Exam Limited By: Altered Mental Status (Infuse due to dementia.) General Appearance: No Apparent Distress, Other (She is actively speaking but is hard to discern what she has talking about. He is confused speech. She has trouble following oral bathing commands.) Eye Exam: Right Eye: PERRL (No gaze palsy.), Bilateral Eye: Normal Inspection Throat/Mouth: Other Head Exam: Atraumatic (Tongue is beefy red and very shriveled and dried up. This is compatible with volume depletion.), Normocephalic Neck: Normal Inspection, Limited Range of Motion, Tender Lateral. No: Carotid Bruit, Lymphadenopathy (L) (Has some pain on lateral palpation of both sides of her neck.), Lymphadenopathy (R) Respiratory/Chest: Lungs Clear, Normal Breath Sounds, No Accessory Muscle Use, Chest Non-Tender, Respiratory Distress (Tachypnea 20/m.), Other (She is very cachectic in appearance.) Cardiovascular: No Gallop, No Murmur, No Rub, Irregularly Irregular (Monitor reveals atrial fibrillation at 68/m.). No: Normal Peripheral Pulses, No Edema GI/Abdominal: Normal Bowel Sounds, Soft, Non-Tender, No Organomegaly, Other ( Scaphoid abdomen. Liver edge is just palpable under the right costal margin with inspiration.) Neurological: CN II-XII Intact (Nose all limbs without any issues. As far as I can ascertain all cranial nerves are intact.), No Motor/Sensory Deficits. No: Normal Reflexes, Oriented x 3, Babinski DTR: 0: Achilles (R), Achilles (L), 1+: Bicep (R), Bicep (L), Patella (R), Patella (L) Back Exam: Other (Mild kyphosis thoracic spine.) Extremities: Normal Range of Motion, Other (She has a bandage over a healing scab wound left distal tib-fib. There is slight surrounding erythema of active cellulitis. She has bruises on her dorsal hands and forearms of varying and tea daily.) Skin Exam: Warm, Dry, Intact, Normal Color EKG INTERPRETATION EKG Date: 07/05/17 Time: 23:22 Rhythm: A-Fib (With a rate between 60 and 95/m.) Rate (Beats/Min): 75 [place]: Normal P-Wave: Absent QRS: Other (There is a Q-wave in V2 and V3 compatible with an old anteroseptal myocardial infarction. Due to baseline irregularity V1 was not used as part of the analysis.) ST-T: Normal QT: Normal EKG Interpretation Comments: Abnormal ECG with no signs of ischemia. Course - Vital Signs Last Recorded V/S: Last Vital Signs Temp 36.1 C 07/05/17 23:20 Pulse 73 07/05/17 23:20 Resp 20 07/05/17 23:20 BP 109/66 07/05/17 23:20 Pulse Ox 100 07/05/17 23:20 Orthostatic Blood Pressure [ 88/48 Standing] Orthostatic Blood Pressure [ 105/50 Supine] - Orders/Labs/Meds Orders: Active Orders 24 hr Category Date Time Status EKG Documentation Completion [RC] STAT Care 07/05/17 23:24 Active Orthostatic Vital Signs [RC] ASDIRECTED Care 07/05/17 23:24 Active Chest 1V Frontal [CR] Stat Exams 07/05/17 23:24 Taken URINALYSIS W/MICROSCOPIC [UA W/MICROSCOPIC] [URIN] Stat Lab 07/05/17 23:25 Ordered Sodium Chloride 0.9% [Normal Saline] 500 ml Med 07/05/17 23:40 Active IV .BOLUS Medication Orders Sodium Chloride (Normal Saline) 500 mls @ 250 mls/hr IV .BOLUS ONE Stop: 07/06/17 01:39 Last Admin: 07/05/17 23:44 Dose: 250 mls/hr Labs: Laboratory Tests 07/05/17 07/05/17 07/05/17 Range/Units 23:46 23:46 23:46 WBC 7.21 (3.98-10.04) K/mm3 RBC 4.15 (3.98-5.22) M/mm3 Hgb 12.0 (11.2-15.7) gm/L Hct 38.2 (34.1-44.9) % MCV 92.0 (79.4-94.8) fl MCH 28.9 (25.6-32.2) pg MCHC 31.4 L (32.2-35.5) g/dl RDW Std Deviation 50.0 H (36.4-46.3) fL Plt Count 161 L (182-369) K/mm3 MPV 10.6 (9.4-12.3) fl Neutrophils % (Manual) 56 (40-60) % Band Neutrophils % 0 (0-10) % Lymphocytes % (Manual) 37 (20-40) % Atypical Lymphs % 0 % Monocytes % (Manual) 4 (2-10) % Eosinophils % (Manual) 3 (0.7-5.8) % Basophils % (Manual) 0 L (0.1-1.2) Platelet Estimate Adequate RBC Morph Comment Normal PT 11.1 (9.5-12.1) SECONDS INR 1.02 Sodium 143 (136-145) mEq/L Potassium 4.4 (3.5-5.1) mEq/L Chloride 107 (98-107) mEq/L Carbon Dioxide 29 (21-32) mEq/L Anion Gap 11.4 (5-15) BUN 51 H (7-18) mg/dL Creatinine 1.7 H (0.55-1.02) mg/dL Est Cr Clr Drug Dosing 20.03 mL/min Estimated GFR (MDRD) 28 (>60) mL/min BUN/Creatinine Ratio 30.0 H (14-18) Glucose 109 (83-115) mg/dL Calcium 9.5 (8.5-10.1) mg/dL Magnesium 1.9 (1.8-2.4) mg/dl Total Bilirubin 0.3 (0.2-1.0) mg/dL AST 17 (15-37) U/L ALT 15 (14-59) U/L Alkaline Phosphatase 136 H (46-116) U/L CK-MB (CK-2) 0.9 (0-3.6) ng/ml Troponin I < 0.017 (0.00-0.056) ng/mL C-Reactive Protein 0.3 (<1.0) mg/dL NT-Pro-B Natriuret Pep (0-450) pg/mL Total Protein 6.7 (6.4-8.2) g/dl Albumin 3.2 L (3.4-5.0) g/dl Globulin 3.5 gm/dL Albumin/Globulin Ratio 0.9 L (1-2) 07/05/17 Range/Units 23:46 WBC (3.98-10.04) K/mm3 RBC (3.98-5.22) M/mm3 Hgb (11.2-15.7) gm/L Hct (34.1-44.9) % MCV (79.4-94.8) fl MCH (25.6-32.2) pg MCHC (32.2-35.5) g/dl RDW Std Deviation (36.4-46.3) fL Plt Count (182-369) K/mm3 MPV (9.4-12.3) fl Neutrophils % (Manual) (40-60) % Band Neutrophils % (0-10) % Lymphocytes % (Manual) (20-40) % Atypical Lymphs % % Monocytes % (Manual) (2-10) % Eosinophils % (Manual) (0.7-5.8) % Basophils % (Manual) (0.1-1.2) Platelet Estimate RBC Morph Comment PT (9.5-12.1) SECONDS INR Sodium (136-145) mEq/L Potassium (3.5-5.1) mEq/L Chloride (98-107) mEq/L Carbon Dioxide (21-32) mEq/L Anion Gap (5-15) BUN (7-18) mg/dL Creatinine (0.55-1.02) mg/dL Est Cr Clr Drug Dosing mL/min Estimated GFR (MDRD) (>60) mL/min BUN/Creatinine Ratio (14-18) Glucose (83-115) mg/dL Calcium (8.5-10.1) mg/dL Magnesium (1.8-2.4) mg/dl Total Bilirubin (0.2-1.0) mg/dL AST (15-37) U/L ALT (14-59) U/L Alkaline Phosphatase (46-116) U/L CK-MB (CK-2) (0-3.6) ng/ml Troponin I (0.00-0.056) ng/mL C-Reactive Protein (<1.0) mg/dL NT-Pro-B Natriuret Pep 2029 H (0-450) pg/mL Total Protein (6.4-8.2) g/dl Albumin (3.4-5.0) g/dl Globulin gm/dL Albumin/Globulin Ratio (1-2) Meds: Medications Generic Name Dose Route Start Last Admin Trade Name Nakul PRN Reason Stop Dose Admin Sodium Chloride 500 mls @ 250 mls/hr 07/05/17 23:40 07/05/17 23:44 Normal Saline IV 07/06/17 01:39 250 mls/hr .BOLUS ONE Administration - Radiology Interpretation Free Text/Narrative:: 87-year-old female brought to the ED per ambulance from [facility] after she had a loss of consciousness that lasted about 5 minutes. Of note she was seated on the toilet that the time she had a syncopal event. The concern was for for the possibility of having had a stroke. The patient is DO NOT RESUSCITATE. At any rate she regained consciousness it's unclear though she was laid down on the floor to take away the effect of gravity. On my assessment she is neurologically intact moving all 4 limbs and speaking normally without any cranial nerve deficits. She has orthostatic with a BP of 105 /50 and standing she was 88/48. Therefore more likely that she suffered a vasovagal event compounded by orthostatic hypotension and volume depletion. Plan she will be given a 250 mils normal saline bolus. Routine labs to be obtained including cardiac markers. She is in chronic atrial fibrillation but the rate appears to be controlled between 60 and 95/m. Clinically she is volume depleted. One view chest x-ray will also be obtained. - Re-Assessments/Exams Free Text/Narrative Re-Assessment/Exam: 07/06/17 01:15 Labs are finally back.Labs are back. White count is 7.21 with 56 % neutrophils and no band cells reported. Hemoglobin is 12.0 with hematocrit of 38.2. Platelet count is 161,000. PT is 11.1 with an INR 1.02. Come to find out she is no longer Coumadin and is on Eliquis. Sodium is 143 with potassium of 4.4. Chloride 107 with a bicarbonate of 29. Anion gap is 11.4. BUN is elevated at 51. Creatinine is elevated at 1.7. She estimated GFR is 28 ice stage IV chronic kidney disease. This is likely aggravated are worsened by volume depletion. BUN/creatinine ratio is 39 volume depletion. Glucose is 109. Calcium 9.5. Magnesium is normal at 1.9. Total bilirubin 0.3. AST is 17. A LT is 15. Alk phosphatase mildly elevated at 136. C-reactive protein is 0.3. CK-MB fraction is 0.9 with troponin I of less than 0.017. BNP is elevated at 2028. Albumin fraction slightly low at 3.2. Patient has thus been given IV fluids slowly for a total of about 400 mils which improved her orthostatic hypotension. She may well need an increase in her Lasix dose due to congestive heart failure. However I would suggest reassessing this in 10 days' time. 07/06/17 01:31 atient did well with standing and walking. There is no signs of a focal neurological deficit. I am a feels her voice in gibberish is her norm. EP is improved up to 132/68 with standing. Plan I will make changes to her medications as I think they're contributing to her orthostatic hypotension. We' ll discontinue the Cardizem 30 mg 4 times a day and replaced with Cardizem CD 120 mg once daily in the morning. Will reduce metoprolol from 50 mg 3 times a day to 50 mg twice a day and she may require further dosage reduction if her rate is controlled. Due to her renal function suggest decreasing lisinopril from 10 mg a day to 5 mg daily. I've [place] that [place] [facility] check her blood pressure orthostatically twice daily for the next week. Also her heart rate is A. fib and atrial flutter bright daily. She is to follow-up in the clinic in 7-10 days time. It is possible Seroquel is contributing to her orthostatic hypotension as well. Departure - Departure Time of Disposition: 01:37 Disposition: DC/Tfer to [facility] Condition: Poor Clinical Impression: Severe dementia, Volume depletion, Orthostatic hypotension, Syncope due to orthostatic hypotension Adverse effects of medication Qualifiers: Encounter type: initial encounter Qualified Code(s): T88.7XXA - Unspecified adverse effect of drug or medicament, initial encounter Congestive heart failure Qualifiers: Heart failure type: unspecified Heart failure chronicity: chronic Qualified Code(s): I50.9 - Heart failure, unspecified - Discharge Information Prescriptions: Diltiazem [Diltiazem SR] 120 mg PO DAILY #30 cap.er Forms: ED Department Discharge Additional Instructions: Evaluation in the emergency room tonight in regards to sudden loss of consciousness one on the toilet tonight. This by history last 4-5 minutes. Unclear whether her cognition improved when she was laid down on the floor or paramedics placed on the gurney which relieved the effect of gravity. In the ED she was found to be significantly volume depleted and suffering severe low blood pressure or orthostatic hypotension. Part of this is medication induced. She requires rate control of her atrial fibrillation but it appears that she is on a bit too much medication at this time. She is in significant congestive failure even though atrial fib rate is well-controlled at 60-95/min. If she was pushing hard to defecate there was a vagal component to her syncope and sudden unresponsive event. However combination of orthostatic hypotension and volume depletion contributed to poor blood supply to her brain causing her to lose consciousness. Treatment in the ED was intravenous fluids for a total of 400 mils. We could find no focal neurological deficit to suggest a stroke. She could walk in the hallway with family members here they identified this was her norm. This was performed after we restored her blood pressure to near normal values. Suggest changes to her blood pressure medications and I wrote orders to that effect. She is volume depleted and needs to be encouraged to drink more juices and water throughout the day to improve her dehydration state. I suggested changes to her blood pressure medications in the hopes that her heart rate will still be controlled but her blood pressure will improve to prevent her from falling. Discussed with family members i.e. daughter and son-in-law who were present. His follow-up with personal physician in 7-10 days time for reevaluation of blood work and ECG check on her A. fib rate. - My Orders Last 24 Hours: My Active Orders 07/05/17 23:24 EKG Documentation Completion [RC] STAT Orthostatic Vital Signs [RC] ASDIRECTED Chest 1V Frontal [CR] Stat 07/05/17 23:25 URINALYSIS W/MICROSCOPIC [UA W/MICROSCOPIC] [URIN] Stat 07/05/17 23:40 Sodium Chloride 0.9% [Normal Saline] 500 ml IV .BOLUS - Assessment/Plan Last 24 Hours: My Active Orders 07/05/17 23:24 EKG Documentation Completion [RC] STAT Orthostatic Vital Signs [RC] ASDIRECTED Chest 1V Frontal [CR] Stat 07/05/17 23:25 URINALYSIS W/MICROSCOPIC [UA W/MICROSCOPIC] [URIN] Stat 07/05/17 23:40 Sodium Chloride 0.9% [Normal Saline] 500 ml IV .BOLUS
[2017-07-05] MEDS ORDERED: Sodium Chloride 0.9% 500 ML IV ONE (23:40)
--- NOTE | 2017-07-06 06:53 | CR ---
Chest: Frontal view of the chest was obtained. Comparison: Prior chest x-ray of 01/21/17. Heart is enlarged. Atherosclerotic change is noted within the aortic knob. Scoliosis is present within the spine. Bony structures are osteoporotic. Lungs are clear without acute parenchymal change. Impression: 1. Cardiomegaly. 2. Other incidental findings. Nothing acute is appreciated. Diagnostic code #2
== END 2017-07-06 02:20 ==
LOC: JD.ED 23:16
DX: I95.1 Orthostatic hypotension (principal); T88.7XXA Unspecified adverse effect of drug or medicament, initial encounter; I48.91 Unspecified atrial fibrillation; F03.90 Unspecified dementia, unspecified severity, without behavioral disturbance, psychotic disturbance, mood disturbance, and anxiety; E86.9 Volume depletion, unspecified; I50.9 Heart failure, unspecified; I11.0 Hypertensive heart disease with heart failure; Z88.1 Allergy status to other antibiotic agents; Z79.899 Other long term (current) drug therapy
CPT/HCPCS: 36415; 71045; 80053; 81001; 82553; 83735; 83880; 84484; 85025; 85610; 86140; 93005; 96360; 96361; 99285; J7040; 93010; 99284-25

== ENCOUNTER 2017-08-19 09:54 | Inpatient (IN) | payer MEDICARE, OTHER ==
[2017-08-19] MEDS ORDERED: Sodium Chloride 0.9% 10 ML Syringe FLUSH PRN ×2 (10:09→20:00)
[2017-08-19] MEDS ORDERED: HYDROmorphone 0.5 MG/0.5 ML SYRINGE IVPUSH ONE ×2 (10:09→13:19)
--- NOTE | 2017-08-19 11:04 | EDM.PDOC ---
ED HPI GENERAL MEDICAL PROBLEM - General Chief Complaint: Lower Extremity Injury/Pain Stated Complaint: [facility] Time Seen by Provider: 08/19/17 10:02 Source of Information: Reports: EMS, Detention Records, RN Notes Reviewed - History of Present Illness INITIAL COMMENTS - FREE TEXT/NARRATIVE: 87-year-old female has been brought to the emergency department by ambulance from [facility] for evaluation of right hip discomfort. She fell last evening. Circumstances of her fall are not known but she does have dementia , she normally walks only with assistance but she does tend according to her daughter get up and try on her own at times. She was noted to be having some hip discomfort last evening but it was not felt to be severe. Monitor to the night. She continued to have hip discomfort this morning and now transferred to ED at this time. Because of her dementia patient is not able to give any meaningful history as to what happened and her responses even to yes and no questions are very limited. Therefore history obtained is primarily from EMS. The senior living staff did not call report. As needed with the patient's daughter and she does give further history regarding baseline patient's status. - Related Data Allergies Allergy/AdvReac Type Severity Reaction Status Date / Time Cephalosporins AdvReac Nausea Verified 08/19/17 10:05 Home Meds: Home Meds Acetaminophen [Tylenol Arthritis Pain] 1 tab PO TID PRN 04/25/14 [History] Levothyroxine [Synthroid] 88 mcg PO DAILY 04/25/14 [History] Simvastatin [Zocor] 20 mg PO BEDTIME 04/25/14 [History] cycloSPORINE [Restasis] 1 drop EYEBOTH BID 04/25/14 [History] Propylene Glycol/Peg 400 [Systane 0.3-0.4% Eye Drops] 1 drop EYEBOTH BID [History] Cholecalciferol (Vitamin D3) [Vitamin D3] 2,000 units PO DAILY #30 tablet [Rx] Famotidine [Pepcid] 20 mg PO BID #60 tablet 01/17/17 [Rx] carBAMazepine [Carbamazepine ER] 200 mg PO BID #60 cpmp.12hr 01/17/17 [Rx] Apixaban [Eliquis] 2.5 mg PO BID #60 tablet 01/31/17 [Rx] Acetaminophen [Tylenol] 650 mg PO TID 07/06/17 [History] Compression Socks, Medium [Futuro Restoring] 1 each MC ASDIRECTED 07/06/17 [ History] Diltiazem [Diltiazem SR] 120 mg PO DAILY #30 cap.er 07/06/17 [Rx] Furosemide 20 mg PO ACDINNER 07/06/17 [History] Metoprolol Tartrate [Lopressor] 50 mg PO BID 07/06/17 [History] QUEtiapine [SEROquel] 50 mg PO BEDTIME 07/06/17 [History] Lisinopril [Prinivil] 10 mg PO DAILY 08/19/17 [History] Past Medical History HEENT History: Reports: Impaired Vision Other HEENT History: partial tooth Cardiovascular History: Reports: Afib, High Cholesterol, Hypertension, Other ( See Below) Other Cardiovascular History: mitral valve insufficiency, atrial flutter Respiratory History: Reports: None Gastrointestinal History: Reports: GERD Genitourinary History: Reports: Other (See Below) Other Genitourinary History: dysuria [employer]PER[employer] History: Reports: Musculoskeletal History: Reports: Osteoarthritis, Osteoporosis Other Musculoskeletal History: degenerative joint disease, inflammatory spondylopathy Neurological History: Reports: CVA, Other (See Below) Other Neuro History: hx of "brain bleed", trigeminal neuralgia, states "fake seizures", written dx of epilepsy ; pt had 4 head bleeds with the stroke Psychiatric History: Reports: Anxiety, Dementia Endocrine/Metabolic History: Reports: Hypothyroidism Hematologic History: Reports: Other (See Below) Other Hematologic History: on eliquis - Infectious Disease History Infectious Disease History: Reports: Chicken Pox - Past Surgical History HEENT Surgical History: Reports: Eye Surgery, Tonsillectomy Female Surgical History: Reports: Breast Biopsy, Hysterectomy Musculoskeletal Surgical History: Reports: Shoulder Surgery Social & Family History - Family History Family Medical History: Noncontributory Cardiac: Reports: [place] Neurological: Reports: Other (See Below) Other Neurological Family History: ALS Oncologic: Reports: Leukemia - Tobacco Use Smoking Status *Q: Never Smoker - Caffeine Use Caffeine Use: Reports: None Caffeine Use Comment: states around 4 cups a day - Recreational Drug Use Recreational Drug Use: No - Living Situation & Occupation Living situation: Reports: , Extended Care Facility ([facility]) Occupation: Retired Review of Systems - Review of Systems Review Of Systems: Unable To Obtain ED EXAM, GENERAL - Physical Exam Exam: See Below Exam Limited By: Altered Mental Status (Dementia) General Appearance: Alert, Anxious, Mild Distress Eye Exam: Bilateral Eye: PERRL Head: Atraumatic Neck: Non-Tender Respiratory/Chest: No Respiratory Distress, Lungs Clear, Normal Breath Sounds Cardiovascular: Irregularly Irregular GI/Abdominal: Soft, Non-Tender Extremities: Other (Mild tenderness right lateral hip, mild pain with her for limited motion of her right lower extremity at the hip joint area compared to the left) Neurological: Alert, Confused (Patient does attempt to answer questions but answers are very limited and of questionable reliability) Skin Exam: Warm, Dry, Normal Color EKG INTERPRETATION EKG Date: 08/19/17 Rhythm: A-Fib Rate (Beats/Min): 83 [place]: Normal QRS: Normal ST-T: Normal Course - Vital Signs Last Recorded V/S: Last Vital Signs Temp 99.6 F 08/19/17 10:00 Pulse 80 08/19/17 10:00 Resp 16 08/19/17 10:00 BP 128/67 08/19/17 10:00 Pulse Ox 92 L 08/19/17 10:00 - Orders/Labs/Meds Orders: Active Orders 24 hr Category Date Time Status Admission Status [Patient Status] [ADT] Routine ADT 08/19/17 12:48 Active Peripheral IV Care [RC] Q2HR Care 08/19/17 10:09 Active Sodium Chloride 0.9% [Normal Saline] 1,000 ml Med 08/19/17 12:30 Active IV ASDIRECTED Sodium Chloride 0.9% [Saline Flush] Med 08/19/17 10:09 Active 10 ml FLUSH ASDIRECTED PRN Peripheral IV Insertion Adult [OM.PC] Stat Oth 08/19/17 10:09 Ordered Medication Orders Sodium Chloride (Normal Saline) 1,000 mls @ 150 mls/hr IV ASDIRECTED MICHELLE Last Admin: 08/19/17 11:20 Dose: 150 mls/hr Sodium Chloride (Saline Flush) 10 ml FLUSH ASDIRECTED PRN PRN Reason: Keep Vein Open Last Admin: 08/19/17 10:14 Dose: 10 ml Labs: Laboratory Tests 08/19/17 08/19/17 Range/Units 10:40 10:40 WBC 9.76 (3.98-10.04) K/mm3 RBC 3.78 L (3.98-5.22) M/mm3 Hgb 11.4 (11.2-15.7) gm/L Hct 35.5 (34.1-44.9) % MCV 93.9 (79.4-94.8) fl MCH 30.2 (25.6-32.2) pg MCHC 32.1 L (32.2-35.5) g/dl RDW Std Deviation 55.7 H (36.4-46.3) fL Plt Count 146 L (182-369) K/mm3 MPV 10.7 (9.4-12.3) fl Neut % (Auto) 71.1 (34.0-71.1) % Lymph % (Auto) 13.3 L (19.3-51.7) % [place] % (Auto) 9.4 (4.7-12.5) % Eos % (Auto) 5.4 (0.7-5.8) Baso % (Auto) 0.6 (0.1-1.2) % Neut # (Auto) 6.93 H (1.56-6.13) K/mm3 Lymph # (Auto) 1.30 (1.18-3.74) K/mm3 [place] # (Auto) 0.92 H (0.24-0.36) K/mm3 Eos # (Auto) 0.53 H (0.04-0.36) K/mm3 Baso # (Auto) 0.06 (0.01-0.08) K/mm3 Sodium 140 (136-145) mEq/L Potassium 4.5 (3.5-5.1) mEq/L Chloride 106 (98-107) mEq/L Carbon Dioxide 26 (21-32) mEq/L Anion Gap 12.5 (5-15) BUN 43 H (7-18) mg/dL Creatinine 1.4 H (0.55-1.02) mg/dL Est Cr Clr Drug Dosing TNP Estimated GFR (MDRD) 36 (>60) mL/min BUN/Creatinine Ratio 30.7 H (14-18) Glucose 109 (83-115) mg/dL Calcium 9.4 (8.5-10.1) mg/dL Total Bilirubin 0.8 (0.2-1.0) mg/dL AST 17 (15-37) U/L ALT 22 (14-59) U/L Alkaline Phosphatase 108 (46-116) U/L Total Protein 6.7 (6.4-8.2) g/dl Albumin 3.2 L (3.4-5.0) g/dl Globulin 3.5 gm/dL Albumin/Globulin Ratio 0.9 L (1-2) Meds: Medications Generic Name Dose Route Start Last Admin Trade Name Freq PRN Reason Stop Dose Admin Sodium Chloride 1,000 mls @ 150 mls/hr 08/19/17 12:30 08/19/17 11:20 Normal Saline IV 150 mls/hr ASDIRECTED MICHELLE Administration Sodium Chloride 10 ml 08/19/17 10:09 08/19/17 10:14 Saline Flush FLUSH 10 ml ASDIRECTED PRN Administration Keep Vein Open Discontinued Medications Generic Name Dose Route Start Last Admin Trade Name Freq PRN Reason Stop Dose Admin Hydromorphone HCl 0.25 mg 08/19/17 10:09 08/19/17 10:13 Dilaudid IVPUSH 08/19/17 10:10 0.25 mg ONETIME ONE Administration Hydromorphone HCl 0.25 mg 08/19/17 13:19 08/19/17 13:24 Dilaudid IVPUSH 08/19/17 13:20 0.25 mg ONETIME ONE Administration - Re-Assessments/Exams Free Text/Narrative Re-Assessment/Exam: 08/19/17 11:12 X-ray of hip does show femoral neck fracture on the right with quite marked angulation. 08/19/17 12:12. 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 I have discussed this with Dr. Iglesias who is in the Hospital[facility]Clinic at this time. He is willing to see the patient, do the surgery next Tuesday, 3 days from now. She is on Eliquis for her chronic a fib. That will need to be held for 2-3 days until she surgery be safely done. Dr. Bui Hospitalist will be admitting her at this time for planned surgery this coming Tuesday 3 days from now. Departure - Departure Time of Disposition: 12:32 Disposition: Home, Self-Care 01 Condition: Serious Clinical Impression: Fracture of neck of femur, hip Atrial fibrillation Qualifiers: Atrial fibrillation type: unspecified Qualified Code(s): I48.91 - Unspecified atrial fibrillation - Discharge Information ED Communication - Discussed Case With (1) Discussed Case With (1): Admitting Provider (Dr Bui, decision to admit at about 12:00.) - My Orders Last 24 Hours: My Active Orders 08/19/17 10:09 Peripheral IV Care [RC] Q2HR Sodium Chloride 0.9% [Saline Flush] 10 ml FLUSH ASDIRECTED PRN Peripheral IV Insertion Adult [OM.PC] Stat 08/19/17 12:30 Sodium Chloride 0.9% [Normal Saline] 1,000 ml IV ASDIRECTED 08/19/17 12:48 Admission Status [Patient Status] [ADT] Routine - Assessment/Plan Last 24 Hours: My Active Orders 08/19/17 10:09 Peripheral IV Care [RC] Q2HR Sodium Chloride 0.9% [Saline Flush] 10 ml FLUSH ASDIRECTED PRN Peripheral IV Insertion Adult [OM.PC] Stat 08/19/17 12:30 Sodium Chloride 0.9% [Normal Saline] 1,000 ml IV ASDIRECTED 08/19/17 12:48 Admission Status [Patient Status] [ADT] Routine
--- NOTE | 2017-08-19 12:02 | CR ---
Pelvis and right hip: AP view of the pelvis was obtained as well as AP and lateral views of the right hip. Fracture is identified within the right hip involving subcapital region. AP view shows superior displacement of the distal portion of the hip. Joint space narrowing is noted within both hips. Intramedullary ruddy is noted within the left femur. Bony structures are osteopenic. Previous lumbar spine surgery is noted. Scoliosis is noted within the spine. Inferior vena cava filter is present. Impression: 1. Displaced subcapital fracture within the right hip. 2. Other incidental findings. Diagnostic code #3
[2017-08-19] MEDS ORDERED: Sodium Chloride 0.9% 1,000 ML IV SCH (12:30)
[2017-08-19] MEDS ORDERED: Bisacodyl 5 MG Tab PO PRN (15:37)
[2017-08-19] MEDS ORDERED: Polyethylene Glycol 3350 Powder 17 GM Packet PO PRN (15:37)
[2017-08-19] MEDS ORDERED: Promethazine 25 MG Tab PO PRN (15:37)
[2017-08-19] MEDS ORDERED: Promethazine 6.25 MG in Sodium Chloride 0.9% 50 ML IV PRN (15:37)
[2017-08-19] MEDS ORDERED: Magnesium Hydroxide 400 MG/5 ML Susp 30 ML Cup PO PRN (15:37)
[2017-08-19] MEDS ORDERED: Temazepam 7.5 MG Cap PO PRN (15:37)
[2017-08-19] MEDS ORDERED: Docusate Sodium 100 MG Cap PO PRN (15:37)
[2017-08-19] MEDS ORDERED: Acetaminophen 325 MG Tab PO PRN (15:37)
--- NOTE | 2017-08-19 16:47 | PCM.HP ---
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 Unable to obtain review of systems in the ED due to history of dementia. She did have pain to palpation of the left hip in the ED. Her pain improved after receiving Dilaudid in the ED. Her initial workup in the ED showed a CBC remarkable for RBC 3.78, MCHC 32.1, RDW 55.7, PLT 146, lymph 13.3%, neutrophils 6.93%. Her chemistry is remarkable for BUN 43, CR 1.4, eGFR 36, albumin 3.2. UA is suspect for UTI. EKG shows Afib. Low grade temperature of 99.6. She is subsequently admitted to the medical floor. She is a DNR/DNI. Her PCP is Dr. Chand. - Related Data Allergies/Adverse Reactions: Allergies Allergy/AdvReac Type Severity Reaction Status Date / Time Cephalosporins AdvReac Nausea Verified 08/19/17 16:15 Home Medications: Home Meds Acetaminophen [Tylenol Arthritis Pain] 650 mg PO TID PRN 04/25/14 [History] Levothyroxine [Synthroid] 88 mcg PO DAILY 04/25/14 [History] Simvastatin [Zocor] 20 mg PO BEDTIME 04/25/14 [History] cycloSPORINE [Restasis] 1 drop EYEBOTH BID 04/25/14 [History] Propylene Glycol/Peg 400 [Systane 0.3-0.4% Eye Drops] 1 drop EYEBOTH BID [History] Cholecalciferol (Vitamin D3) [Vitamin D3] 2,000 units PO DAILY #30 tablet [Rx] Famotidine [Pepcid] 20 mg PO BID #60 tablet 01/17/17 [Rx] carBAMazepine [Carbamazepine ER] 200 mg PO BID #60 cpmp.12hr 01/17/17 [Rx] Apixaban [Eliquis] 2.5 mg PO BID #60 tablet 01/31/17 [Rx] Acetaminophen [Tylenol] 650 mg PO TID 07/06/17 [History] Diltiazem [Diltiazem SR] 120 mg PO DAILY #30 cap.er 07/06/17 [Rx] Furosemide 20 mg PO ACDINNER 07/06/17 [History] Metoprolol Tartrate [Lopressor] 50 mg PO BID 07/06/17 [History] QUEtiapine [SEROquel] 50 mg PO BEDTIME 07/06/17 [History] Lisinopril [Prinivil] 5 mg PO DAILY 08/19/17 [History] Past Medical History HEENT History: Reports: Impaired Vision Other HEENT History: partial tooth Cardiovascular History: Reports: Afib, Arrhythmia, High Cholesterol, Hypertension, Other (See Below) Other Cardiovascular History: mitral valve insufficiency, atrial flutter Respiratory History: Reports: None Gastrointestinal History: Reports: GERD Genitourinary History: Reports: Other (See Below) Other Genitourinary History: dysuria 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: Musculoskeletal History: Reports: Osteoarthritis, Osteoporosis Other Musculoskeletal History: degenerative joint disease, inflammatory spondylopathy Neurological History: Reports: CVA, Other (See Below) Other Neuro History: hx of "brain bleed", trigeminal neuralgia, states "fake seizures", written dx of epilepsy ; pt had 4 head bleeds with the stroke Psychiatric History: Reports: Anxiety, Dementia Endocrine/Metabolic History: Reports: Hypothyroidism Hematologic History: Reports: Other (See Below) Other Hematologic History: on eliquis, Hx of DVT - Infectious Disease History Infectious Disease History: Reports: Chicken Pox - Past Surgical History Head Surgeries/Procedures: Reports: Other (See Below) HEENT Surgical History: Reports: Eye Surgery, Tonsillectomy Female Surgical History: Reports: Breast Biopsy, Hysterectomy Musculoskeletal Surgical History: Reports: Shoulder Surgery Social & Family History - Family History Family Medical History: Noncontributory Cardiac: Reports: [place] Neurological: Reports: Other (See Below) Other Neurological Family History: ALS Oncologic: Reports: Leukemia - Tobacco Use Smoking Status *Q: Never Smoker - Caffeine Use Caffeine Use: Reports: None Other Caffeine Use: no coffee at this time Caffeine Use Comment: states around 4 cups a day - Recreational Drug Use Recreational Drug Use: No - Living Situation & Occupation Living situation: Reports: , Extended Care Facility ([facility] retirement) Occupation: Retired H&P Review of Systems - Review of Systems: Review Of Systems: Unable To Obtain Exam - Exam Exam: See Below - Vital Signs Vital Signs: Last Vital Signs Temp 99.0 F 08/19/17 14:20 Pulse 82 08/19/17 14:20 Resp 16 08/19/17 14:20 BP 134/96 H 08/19/17 14:21 Pulse Ox 100 08/19/17 14:20 Weight: 130 lb - Exam Quality Assessment: DVT Prophylaxis General: Alert, Cooperative, Other (Altered Mental Status (Dementia)) HEENT: PERRLA, Hearing Intact, Mucosa Moist & [place], Nares Patent, Normal Nasal Septum, Posterior Pharynx Clear, Conjunctiva Clear, EOMI, EACs Clear, TMs Clear Neck: Supple, Trachea Midline, 2 Lungs: Clear to Auscultation, Normal Respiratory Effort Cardiovascular: Irregular Rhythm, Other (Irregular Rate) GI/Abdominal Exam: Normal Bowel Sounds, Soft, Non-Tender, No Organomegaly, No Distention, No Abnormal Bruit, No Mass, Pelvis Stable (Female) Exam: Deferred Rectal (Female) Exam: Deferred Back Exam: Normal Inspection, Decreased Range of Motion Extremities: Normal Inspection, Non-Tender, No Pedal Edema, Normal Capillary Refill, Other (Tenderness and limited ROM of right lateral hip) Peripheral Pulses: 1+: Posterior Tibial (L), Posterior Tibial (R), Dorsalis Pedis (L), Dorsalis Pedis (R) Skin: Warm, Dry, Intact Neurological: Cranial Nerves Intact (grossly) Neuro Extensive - Mental Status: Alert, Other (Confused, h/o dementia) Psychiatric: Alert, Anxious, Other (Confused) - Patient Data Lab Results Last 24 hrs: Laboratory Results - last 24 hr 08/19/17 08/19/17 08/19/17 Range/Units 10:40 10:40 12:50 WBC 9.76 (3.98-10.04) K/mm3 RBC 3.78 L (3.98-5.22) M/mm3 Hgb 11.4 (11.2-15.7) gm/L Hct 35.5 (34.1-44.9) % MCV 93.9 (79.4-94.8) fl MCH 30.2 (25.6-32.2) pg MCHC 32.1 L (32.2-35.5) g/dl RDW Std Deviation 55.7 H (36.4-46.3) fL Plt Count 146 L (182-369) K/mm3 MPV 10.7 (9.4-12.3) fl Neut % (Auto) 71.1 (34.0-71.1) % Lymph % (Auto) 13.3 L (19.3-51.7) % Barnes % (Auto) 9.4 (4.7-12.5) % Eos % (Auto) 5.4 (0.7-5.8) Baso % (Auto) 0.6 (0.1-1.2) % Neut # (Auto) 6.93 H (1.56-6.13) K/mm3 Lymph # (Auto) 1.30 (1.18-3.74) K/mm3 Barnes # (Auto) 0.92 H (0.24-0.36) K/mm3 Eos # (Auto) 0.53 H (0.04-0.36) K/mm3 Baso # (Auto) 0.06 (0.01-0.08) K/mm3 Sodium 140 (136-145) mEq/L Potassium 4.5 (3.5-5.1) mEq/L Chloride 106 (98-107) mEq/L Carbon Dioxide 26 (21-32) mEq/L Anion Gap 12.5 (5-15) BUN 43 H (7-18) mg/dL Creatinine 1.4 H (0.55-1.02) mg/dL Est Cr Clr Drug Dosing TNP Estimated GFR (MDRD) 36 (>60) mL/min BUN/Creatinine Ratio 30.7 H (14-18) Glucose 109 (83-115) mg/dL Calcium 9.4 (8.5-10.1) mg/dL Total Bilirubin 0.8 (0.2-1.0) mg/dL AST 17 (15-37) U/L ALT 22 (14-59) U/L Alkaline Phosphatase 108 (46-116) U/L Total Protein 6.7 (6.4-8.2) g/dl Albumin 3.2 L (3.4-5.0) g/dl Globulin 3.5 gm/dL Albumin/Globulin Ratio 0.9 L (1-2) Urine Color Yellow (Yellow) Urine Appearance Clear (Clear) Urine pH 6.0 (5.0-8.0) Ur Specific [place] 1.020 (1.005-1.030) Urine Protein Negative (Negative) Urine Glucose (UA) Negative (Negative) Urine Ketones Negative (Negative) Urine Occult Blood Negative (Negative) Urine Nitrite Negative (Negative) Urine Bilirubin Negative (Negative) Urine Urobilinogen 0.2 (0.2-1.0) Ur Leukocyte Esterase 2+ H (Negative) Urine RBC 0-5 (0-5) /hpf Urine WBC 20-30 H (0-5) /hpf Ur Epithelial Cells 0-5 (0-5) /hpf Urine Bacteria Moderate H (FEW) /hpf Urine Mucus Not seen (FEW) /hpf Result Diagrams: 08/19/17 10:40 08/19/17 10:40 - Problem List (1) Fracture of neck of femur, hip SNOMED Code(s): 0811487 ICD Code: S72.009A - FRACTURE OF UNSP PART OF NECK OF UNSP FEMUR, INIT Status: Acute Priority: High Current Visit: Yes (2) A-fib SNOMED Code(s): 57343179 ICD Code: I48.91 - UNSPECIFIED ATRIAL FIBRILLATION Status: Chronic Priority: High Current Visit: Yes Qualifiers: Atrial fibrillation type: unspecified Qualified Code(s): I48.91 - Unspecified atrial fibrillation (3) Altered mental status SNOMED Code(s): 665033619 ICD Code: R41.82 - ALTERED MENTAL STATUS, UNSPECIFIED Status: Acute Priority: High Current Visit: Yes Qualifiers: Altered mental status type: disorientation Qualified Code(s): R41.0 - Disorientation, unspecified (4) Severe dementia SNOMED Code(s): 77331834 ICD Code: F03.90 - UNSPECIFIED DEMENTIA WITHOUT BEHAVIORAL DISTURBANCE Status: Chronic Priority: Medium Current Visit: Yes (5) Fall SNOMED Code(s): 1811901, 574186467 ICD Code: W19.XXXA - UNSPECIFIED FALL, INITIAL ENCOUNTER Status: Acute Priority: High Current Visit: Yes Qualifiers: Encounter type: initial encounter Qualified Code(s): W19.XXXA - Unspecified fall, initial encounter (6) UTI (urinary tract infection) SNOMED Code(s): 85442536 ICD Code: N39.0 - URINARY TRACT INFECTION, SITE NOT SPECIFIED Status: Acute Priority: High Current Visit: Yes Qualifiers: Urinary tract infection type: site unspecified Hematuria presence: without hematuria Qualified Code(s): N39.0 - Urinary tract infection, site not specified Problem List Initiated/Reviewed/Updated: Yes Orders Last 24hrs: Active Orders 24 hr Category Date Time Status Admission Status [Patient Status] [ADT] Routine ADT 08/19/17 12:48 Active Bedrest Bathroom Privileges [RC] ASDIRECTED Care 08/19/17 15:37 Active Cardiac Monitoring [RC] INTERMITTENT Care 08/19/17 15:40 Active Height and Weight [RC] DAILY Care 08/19/17 15:37 Active Intake and Output [RC] QSHIFT Care 08/19/17 15:40 Active May Shower [RC] ASDIRECTED Care 08/19/17 15:37 Active Notify Provider Consults [RC] ASDIRECTED Care 08/19/17 15:59 Active Oxygen Therapy [RC] PRN Care 08/19/17 15:37 Active Peripheral IV Care [RC] Q2HR Care 08/19/17 10:09 Active Pulse Oximetry [RC] PRN Care 08/19/17 15:40 Active VTE/DVT Education [RC] PER UNIT ROUTINE Care 08/19/17 15:37 Active Verify Patient Consent Obtain [RC] ASDIRECTED Care 08/19/17 14:30 Active Vital Signs [RC] Q4H Care 08/19/17 15:37 Active Consult to Physician [CONS] Routine Cons 08/19/17 15:57 Active National Dysphagia Diet [DIET] Diet 08/19/17 Dinner Ordered BASIC METABOLIC PANEL,BMP [CHEM] AM Lab 08/20/17 05:11 Ordered BASIC METABOLIC PANEL,BMP [CHEM] AM Lab 08/21/17 05:11 Ordered BASIC METABOLIC PANEL,BMP [CHEM] AM Lab 08/22/17 05:11 Ordered BASIC METABOLIC PANEL,BMP [CHEM] AM Lab 08/23/17 05:11 Ordered BASIC METABOLIC PANEL,BMP [CHEM] AM Lab 08/24/17 05:11 Ordered C-REACTIVE PROTEIN [CHEM] AM Lab 08/20/17 05:11 Ordered C-REACTIVE PROTEIN [CHEM] AM Lab 08/21/17 05:11 Ordered C-REACTIVE PROTEIN [CHEM] AM Lab 08/22/17 05:11 Ordered C-REACTIVE PROTEIN [CHEM] AM Lab 08/23/17 05:11 Ordered C-REACTIVE PROTEIN [CHEM] AM Lab 08/24/17 05:11 Ordered CBC WITH AUTO DIFF [HEME] AM Lab 08/20/17 05:11 Ordered CBC WITH AUTO DIFF [HEME] AM Lab 08/21/17 05:11 Ordered CBC WITH AUTO DIFF [HEME] AM Lab 08/22/17 05:11 Ordered CBC WITH AUTO DIFF [HEME] AM Lab 08/23/17 05:11 Ordered CBC WITH AUTO DIFF [HEME] AM Lab 08/24/17 05:11 Ordered METH-RESIST S.AUR,MRSA BY PCR [MOLEC] Routine Lab 08/19/17 14:23 Received Acetaminophen [Tylenol] Med 08/19/17 15:37 Ordered 650 mg PO Q4H PRN Acetaminophen/oxyCODONE [Percocet 325-5 MG] Med 08/19/17 15:37 Ordered 0.5 tab PO Q4H PRN Bisacodyl [Dulcolax] Med 08/19/17 15:37 Ordered 5 mg PO DAILY PRN Docusate Sodium [Colace] Med 08/19/17 15:37 Ordered 100 mg PO BID PRN Docusate Sodium/Sennosides [Senna Plus] Med 08/19/17 15:37 Ordered 1 tab PO BID PRN HYDROmorphone [Dilaudid] Med 08/19/17 15:37 Ordered 0.25 mg IVPUSH Q2H PRN Magnesium Hydroxide [Milk of Magnesia] Med 08/19/17 15:37 Ordered 30 ml PO Q12H PRN Polyethylene Glycol 3350 [MiraLAX] Med 08/19/17 15:37 Ordered 17 gm PO DAILY PRN Promethazine [Phenergan] Med 08/19/17 15:37 Ordered 25 mg PO Q6H PRN Promethazine [Phenergan] 6.25 mg Med 08/19/17 15:37 Ordered Sodium Chloride 0.9% [Normal Saline] 50 ml IV Q6H Sodium Chloride 0.9% [Normal Saline] 1,000 ml Med 08/19/17 12:30 Active IV ASDIRECTED Sodium Chloride 0.9% [Saline Flush] Med 08/19/17 10:09 Active 10 ml FLUSH ASDIRECTED PRN Temazepam [Restoril] Med 08/19/17 15:37 Ordered 7.5 mg PO BEDTIME PRN Antiembolic Hose [OM.PC] Per Unit Routine Oth 08/19/17 15:43 Ordered Peripheral IV Insertion Adult [OM.PC] Stat Oth 08/19/17 10:09 Ordered Sequential Compression Device [OM.PC] Per Unit Routine Oth 08/19/17 15:46 Ordered Resuscitation Status Routine Resus Stat 08/19/17 16:05 Ordered Medication Orders Acetaminophen (Tylenol) 650 mg PO Q4H PRN PRN Reason: Pain (Mild 1-3)/fever Bisacodyl (Dulcolax) 5 mg PO DAILY PRN PRN Reason: Constipation Docusate Sodium (Colace) 100 mg PO BID PRN PRN Reason: Constipation Hydromorphone HCl (Dilaudid) 0.25 mg IVPUSH Q2H PRN PRN Reason: Pain (severe 7-10) Sodium Chloride (Normal Saline) 1,000 mls @ 150 mls/hr IV ASDIRECTED MICHELLE Last Admin: 08/19/17 11:20 Dose: 150 mls/hr Promethazine HCl 6.25 mg/ (Sodium Chloride) 50.25 mls @ 100 mls/hr IV Q6H PRN PRN Reason: Nausea/Vomiting Magnesium Hydroxide (Milk Of Magnesia) 30 ml PO Q12H PRN PRN Reason: Constipation Oxycodone/Acetaminophen (Percocet 325-5 Mg) 0.5 tab PO Q4H PRN PRN Reason: Pain (moderate 4-6) Polyethylene Glycol (Miralax) 17 gm PO DAILY PRN PRN Reason: Constipation Promethazine HCl (Phenergan) 25 mg PO Q6H PRN PRN Reason: Nausea/Vomiting Senna/Docusate Sodium (Senna Plus) 1 tab PO BID PRN PRN Reason: Constipation Sodium Chloride (Saline Flush) 10 ml FLUSH ASDIRECTED PRN PRN Reason: Keep Vein Open Last Admin: 08/19/17 10:14 Dose: 10 ml Temazepam (Restoril) 7.5 mg PO BEDTIME PRN PRN Reason: Sleep Assessment/Plan Comment:: I/P: Acute: Right Femoral Neck Fx -Risk Factors: Dementia/Confusion, Difficulty ambulating, Osteoporosis/ Osteoarthritis -S/p unwitnessed fall at [facility] last evening; limited history 2/2 dementia -Hip Xray in ED--> Right Femoral Head Fx -Consult orthopedic surgeon Dr. Iglesias --> Will do surgery on Tuesday -Hold Eliquis until after surgery -Pain management PRN -May need a walker to prevent future falls, consult PT/OT UTI -U/A ordered in ED--> suspect for UTI -Low grade fever of 99.6 -Unable to get ROS due to dementia -Urinary catheter inserted in ED 2/ fracture -Rocephin x48 hours Chronic: Dementia Osteoporosis/Osteoarthritis GERD Hypothyroid Anxiety Hemorrhagic CVA Afib/Aflutter on Eliquis--> HOLD ELIQUIS NOW UNTIL AFTER SURGERY HLD CHF HTN MVR Trigeminal neuralgia Plan: Transferred to Med-Surg today She remains stable Other orders as indicated above Continue home medications as directed Routine AM labs NDD3 diet; Boost 90mL 6x per day ([facility]'s regimen) DVT Prophylaxis: SCD, NICO hose GI Prophylaxis: Pepcid PT/OT for discharge planning SW/CM consult for discharge planning Ambulated as tolerated Recommend SNF/Rehab for reconditioning Code Status: DNR/DNI; PCP: Dr. Chand From [facility]
[2017-08-19] MEDS ORDERED: hydrALAZINE 20 MG/ML SDV IVPUSH PRN (17:19)
[2017-08-19] MEDS ORDERED: Famotidine 20 MG Tab PO SCH (18:00)
[2017-08-19] MEDS: Metoprolol Tartrate 50 MG Tab PO SCH (18:00)
[2017-08-19] MEDS: Acetaminophen/oxyCODONE 325-5 MG Tab PO PRN (18:01)
[2017-08-19] MEDS: cefTRIAXone 2 GM in Sodium Chloride 0.9% 100 ML IV SCH (18:56)
[2017-08-19] MEDS ORDERED: Famotidine 20 MG/2 ML SDV IVPUSH SCH (21:00)
[2017-08-19] MEDS ORDERED: Temazepam 15 MG Cap PO PRN (21:55)
[2017-08-19] MEDS: RESTASIS EYEBOTH SCH (22:07)
[2017-08-19] MEDS: Hypromellose 0.5% Ophth Soln 15 ML Bottle EYEBOTH SCH (22:10)
[2017-08-19] MEDS: QUEtiapine 25 MG Tab PO SCH (22:11)
[2017-08-19] MEDS: Simvastatin 20 MG Tab PO SCH (22:12)
[2017-08-19] MEDS: CARBAMAZEPINE 200 MG PO SCH (22:12)
[2017-08-19] MEDS: HYDROmorphone 0.5 MG/0.5 ML SYRINGE IVPUSH PRN (22:33)
[2017-08-20] MEDS: HYDROmorphone 0.5 MG/0.5 ML SYRINGE IVPUSH PRN ×4 (01:45→17:47)
[2017-08-20] MEDS ORDERED: Haloperidol Lactate 5 MG/ML SDV IVPUSH ONE (02:07)
[2017-08-20] MEDS ORDERED: Metoprolol Tartrate 5 MG/5 ML SDV IVPUSH PRN (02:07)
[2017-08-20] MEDS ORDERED: Sodium Chloride 0.9% 250 ML IV ONE (02:15)
[2017-08-20] MEDS ORDERED: Diltiazem 125 MG in Sodium Chloride 0.9% 100 ML IV SCH (02:15)
[2017-08-20] MEDS ORDERED: Sodium Chloride 0.9% 1,000 ML ONE (02:23)
[2017-08-20] MEDS ORDERED: Sodium Chloride 0.9% 1,000 ML IV SCH (03:00)
[2017-08-20] MEDS: Diltiazem 120 MG Cap.CD PO SCH (08:55)
[2017-08-20] MEDS: Famotidine 20 MG Tab PO SCH (08:56)
[2017-08-20] MEDS: Cholecalciferol (Vitamin D3) 1,000 Unit Tab PO SCH (08:56)
[2017-08-20] MEDS: Levothyroxine 88 MCG Tab PO SCH (08:56)
[2017-08-20] MEDS: CARBAMAZEPINE 200 MG PO SCH ×3 (08:56→21:32)
[2017-08-20] MEDS: Metoprolol Tartrate 50 MG Tab PO SCH ×2 (08:56→21:32)
[2017-08-20] MEDS ORDERED: Lisinopril 10 MG Tab PO SCH (09:00)
[2017-08-20] MEDS: RESTASIS EYEBOTH SCH ×2 (09:48→21:31)
[2017-08-20] MEDS: Hypromellose 0.5% Ophth Soln 15 ML Bottle EYEBOTH SCH ×2 (09:48→21:31)
--- NOTE | 2017-08-20 11:24 | PCM.PREANE ---
Preanesthetic Assessment - Procedure Proposed Procedure: right hip endoprosthesis - Anesthesia/Transfusion/Family Hx Anesthesia History: Prior Anesthesia Without Reaction Family History of Anesthesia Reaction: No Transfusion History: Prior Transfusion Without Reaction - Review of Systems General: Weakness, Fatigue, Appetite (feeding tube removed 1 montha ago) Pulmonary: No Symptoms Cardiovascular: No Symptoms Gastrointestinal: Decreased Appetite Neurological: Confusion, Pre-Existing Deficit, Difficulty Walking (in w/c at senior care. Patient trying to get out of it all the time. Thus fell), Weakness Other: Reports: Easy Bruising, Thyroid Problems, Anxiety - Physical Assessment NPO Status Date: 08/20/17 NPO Status Time: 23:30 Pulse: 125 O2 Sat by Pulse Oximetry: 96 Respiratory Rate: 14 Blood Pressure: 140/88 Temperature: 98.1 F Vital Signs: Last Vital Signs Temp 97.8 F 08/20/17 08:49 Pulse 100 08/20/17 08:49 Resp 14 08/20/17 08:49 BP 140/88 08/20/17 08:49 Pulse Ox 96 08/20/17 04:00 Height: 5 ft 3 in Weight: 60.101 kg ASA Class: 3 Mental Status: Other (dementia- unable to communicate with her- keeps saying "I don't wan to do it") Airway Class: Mallampati = 2 (won't open mouth) Dentition: Reports: Broken Tooth/Teeth, Missing Tooth/Teeth Thyro-Mental Finger Breadths: 3 ROM/Head Extension: Full Lungs: Clear to Auscultation, Normal Respiratory Effort Cardiovascular: Irregular Rhythm - Lab Values: Laboratory Last Values WBC 15.53 K/mm3 (3.98-10.04) H 08/20/17 08:44 RBC 3.80 M/mm3 (3.98-5.22) L 08/20/17 08:44 Hgb 11.5 gm/L (11.2-15.7) 08/20/17 08:44 Hct 36.2 % (34.1-44.9) 08/20/17 08:44 MCV 95.3 fl (79.4-94.8) H 08/20/17 08:44 MCH 30.3 pg (25.6-32.2) 08/20/17 08:44 MCHC 31.8 g/dl (32.2-35.5) L 08/20/17 08:44 RDW Std Deviation 57.8 fL (36.4-46.3) H 08/20/17 08:44 Plt Count 119 K/mm3 (182-369) L 08/20/17 08:44 MPV 11.5 fl (9.4-12.3) 08/20/17 08:44 Neut % (Auto) 64.8 % (34.0-71.1) 08/20/17 08:44 Lymph % (Auto) 17.5 % (19.3-51.7) L 08/20/17 08:44 [place] % (Auto) 12.7 % (4.7-12.5) H 08/20/17 08:44 Eos % (Auto) 4.2 (0.7-5.8) 08/20/17 08:44 Baso % (Auto) 0.5 % (0.1-1.2) 08/20/17 08:44 Neut # (Auto) 10.07 K/mm3 (1.56-6.13) H 08/20/17 08:44 Lymph # (Auto) 2.71 K/mm3 (1.18-3.74) 08/20/17 08:44 [place] # (Auto) 1.97 K/mm3 (0.24-0.36) H 08/20/17 08:44 Eos # (Auto) 0.66 K/mm3 (0.04-0.36) H 08/20/17 08:44 Baso # (Auto) 0.07 K/mm3 (0.01-0.08) 08/20/17 08:44 Manual Slide Review Normal smear 08/20/17 08:44 Sodium 143 mEq/L (136-145) 08/20/17 08:44 Potassium 4.7 mEq/L (3.5-5.1) 08/20/17 08:44 Chloride 108 mEq/L (98-107) H 08/20/17 08:44 Carbon Dioxide 22 mEq/L (21-32) 08/20/17 08:44 Anion Gap 17.7 (5-15) H 08/20/17 08:44 BUN 35 mg/dL (7-18) H 08/20/17 08:44 Creatinine 1.4 mg/dL (0.55-1.02) H 08/20/17 08:44 Est Cr Clr Drug Dosing 23.42 mL/min 08/20/17 08:44 Estimated GFR (MDRD) 36 mL/min (>60) 08/20/17 08:44 BUN/Creatinine Ratio 25.0 (14-18) H 08/20/17 08:44 Glucose 105 mg/dL (83-115) 08/20/17 08:44 Calcium 9.5 mg/dL (8.5-10.1) 08/20/17 08:44 Total Bilirubin 0.8 mg/dL (0.2-1.0) 08/19/17 10:40 AST 17 U/L (15-37) 08/19/17 10:40 ALT 22 U/L (14-59) 08/19/17 10:40 Alkaline Phosphatase 108 U/L (46-116) 08/19/17 10:40 C-Reactive Protein 17.5 mg/dL (<1.0) H* 08/20/17 08:44 Total Protein 6.7 g/dl (6.4-8.2) 08/19/17 10:40 Albumin 3.2 g/dl (3.4-5.0) L 08/19/17 10:40 Globulin 3.5 gm/dL 08/19/17 10:40 Albumin/Globulin Ratio 0.9 (1-2) L 08/19/17 10:40 Urine Color Yellow (Yellow) 08/19/17 12:50 Urine Appearance Clear (Clear) 08/19/17 12:50 Urine pH 6.0 (5.0-8.0) 08/19/17 12:50 Ur Specific [place] 1.020 (1.005-1.030) 08/19/17 12:50 Urine Protein Negative (Negative) 08/19/17 12:50 Urine Glucose (UA) Negative (Negative) 08/19/17 12:50 Urine Ketones Negative (Negative) 08/19/17 12:50 Urine Occult Blood Negative (Negative) 08/19/17 12:50 Urine Nitrite Negative (Negative) 08/19/17 12:50 Urine Bilirubin Negative (Negative) 08/19/17 12:50 Urine Urobilinogen 0.2 (0.2-1.0) 08/19/17 12:50 Ur Leukocyte Esterase 2+ (Negative) H 08/19/17 12:50 Urine RBC 0-5 /hpf (0-5) 08/19/17 12:50 Urine WBC 20-30 /hpf (0-5) H 08/19/17 12:50 Ur Epithelial Cells 0-5 /hpf (0-5) 08/19/17 12:50 Urine Bacteria Moderate /hpf (FEW) H 08/19/17 12:50 Urine Mucus Not seen /hpf (FEW) 08/19/17 12:50 MRSA (PCR) Negative 08/19/17 14:23 - Imaging/EKG Impressions: 08/19/17 EKG AF PVC 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 07/06 CXR cardiomegaly 01/04 echo EF 65-70% - Allergies Allergies/Adverse Reactions: Allergies Allergy/AdvReac Type Severity Reaction Status Date / Time Cephalosporins AdvReac Nausea Verified 08/19/17 16:15 - Blood Blood Available: Yes - Anesthesia Plan Beta Gavin: Metoprolol - Acknowledgements Anesthesia Type Planned: General Anesthesia, Spinal Pt an Appropriate Candidate for the Planned Anesthesia: Yes Alternatives and Risks of Anesthesia Discussed w Pt/Guardian: Yes Pt/Guardian Understands and Agrees with Anesthesia Plan: Yes Additional Comments: Visited at length with daughter (POA) Kelly Young about her mother's upcoming surgery. Explained the increased risk of anesthetic complications including stroke, heart attack and . She does not want resuscitation measures taken in the OR but will discuss with brother when he comes tomorrow. Consent signed. 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: Musculoskeletal History: Reports: Osteoarthritis, Osteoporosis Other Musculoskeletal History: degenerative joint disease, inflammatory spondylopathy Neurological History: Reports: CVA, Other (See Below) Other Neuro History: hx of "brain bleed", trigeminal neuralgia, states "fake seizures", written dx of epilepsy ; pt had 4 head bleeds with the stroke Psychiatric History: Reports: Anxiety, Dementia Endocrine/Metabolic History: Reports: Hypothyroidism Hematologic History: Reports: Other (See Below) Other Hematologic History: on eliquis, Hx of DVT - Infectious Disease History Infectious Disease History: Reports: Chicken Pox - Past Surgical History Head Surgeries/Procedures: Reports: Other (See Below) HEENT Surgical History: Reports: Eye Surgery, Tonsillectomy Female Surgical History: Reports: Breast Biopsy, Hysterectomy Musculoskeletal Surgical History: Reports: Shoulder Surgery, Other (See Below) ( broken femur times 2) - SUBSTANCE USE Smoking Status *Q: Never Smoker Tobacco Use Within Last Twelve Months: No Second Hand Smoke Exposure: No Days Per Week of Alcohol Use: 0 Recreational Drug Use History: No - HOME MEDS Home Medications: Home Meds Acetaminophen [Tylenol Arthritis Pain] 650 mg PO TID PRN 04/25/14 [History] Levothyroxine [Synthroid] 88 mcg PO DAILY 04/25/14 [History] Simvastatin [Zocor] 20 mg PO BEDTIME 04/25/14 [History] cycloSPORINE [Restasis] 1 drop EYEBOTH BID 04/25/14 [History] Propylene Glycol/Peg 400 [Systane 0.3-0.4% Eye Drops] 1 drop EYEBOTH BID [History] Cholecalciferol (Vitamin D3) [Vitamin D3] 2,000 units PO DAILY #30 tablet [Rx] Famotidine [Pepcid] 20 mg PO BID #60 tablet 01/17/17 [Rx] carBAMazepine [Carbamazepine ER] 200 mg PO BID #60 cpmp.12hr 01/17/17 [Rx] Apixaban [Eliquis] 2.5 mg PO BID #60 tablet 01/31/17 [Rx] Acetaminophen [Tylenol] 650 mg PO TID 07/06/17 [History] Diltiazem [Diltiazem SR] 120 mg PO DAILY #30 cap.er 07/06/17 [Rx] Furosemide 20 mg PO ACDINNER 07/06/17 [History] Metoprolol Tartrate [Lopressor] 50 mg PO BID 07/06/17 [History] QUEtiapine [SEROquel] 50 mg PO BEDTIME 07/06/17 [History] Lisinopril [Prinivil] 5 mg PO DAILY 08/19/17 [History] - CURRENT (IN HOUSE) MEDS Current Meds: Current Medications Acetaminophen (Tylenol) 650 mg PO Q4H PRN PRN Reason: Pain (Mild 1-3)/fever Artificial Tears (Isopto Tears 0.5% Ophth Soln) 0 ml EYEBOTH BID [facility] Last Admin: 08/20/17 09:48 Dose: Not Given Bisacodyl (Dulcolax) 5 mg PO DAILY PRN PRN Reason: Constipation Carbamazepine (Tegretol Tab) 200 mg PO BID [facility] Last Admin: 08/20/17 08:56 Dose: Not Given Cholecalciferol (Vitamin D3) 2,000 units PO DAILY [facility] Last Admin: 08/20/17 08:56 Dose: Not Given Diltiazem HCl (Cardizem Cd) 120 mg PO DAILY [facility] Last Admin: 08/20/17 08:55 Dose: Not Given Docusate Sodium (Colace) 100 mg PO BID PRN PRN Reason: Constipation Famotidine (Pepcid) 20 mg PO DAILY [facility] Last Admin: 08/20/17 08:56 Dose: Not Given Furosemide (Lasix) 20 mg PO ACDINNER [facility] Hydralazine HCl (Apresoline) 10 mg IVPUSH Q4H PRN PRN Reason: Hypertension Hydromorphone HCl (Dilaudid) 1 mg IVPUSH Q6H PRN PRN Reason: Pain Last Admin: 08/20/17 08:41 Dose: 1 mg Promethazine HCl 6.25 mg/ (Sodium Chloride) 50.25 mls @ 100 mls/hr IV Q6H PRN PRN Reason: Nausea/Vomiting Ceftriaxone Sodium 2 gm/ (Sodium Chloride) 100 mls @ 100 mls/hr IV Q24H [facility] Stop: 08/21/17 18:01 Last Admin: 08/19/17 18:56 Dose: 100 mls/hr Diltiazem HCl 125 mg/ Sodium (Chloride) 125 mls @ 10 mls/hr IV TITRATE [facility]; Protocol Last Admin: 08/20/17 07:39 Dose: 5 mg/hr, 5 mls/hr Levothyroxine Sodium (Synthroid) 88 mcg PO DAILY [facility] Last Admin: 08/20/17 08:56 Dose: Not Given Lisinopril (Prinivil) 5 mg PO DAILY [facility] Last Admin: 08/20/17 08:56 Dose: Not Given Lorazepam (Ativan) 0.5 mg IVPUSH Q8H PRN PRN Reason: Anxiety Magnesium Hydroxide (Milk Of Magnesia) 30 ml PO Q12H PRN PRN Reason: Constipation Metoprolol Tartrate (Lopressor) 50 mg PO BID [facility] Last Admin: 08/20/17 08:56 Dose: Not Given Metoprolol Tartrate (Lopressor) 5 mg IVPUSH Q6H PRN PRN Reason: Tachycardia Last Admin: 08/20/17 08:13 Dose: 5 mg Restasis Ophth Soln (Own Med) 0 drop EYEBOTH BID [facility] Last Admin: 08/20/17 09:48 Dose: Not Given Oxycodone/Acetaminophen (Percocet 325-5 Mg) 0.5 tab PO Q4H PRN PRN Reason: Pain (moderate 4-6) Last Admin: 08/19/17 18:01 Dose: 0.5 tab Polyethylene Glycol (Miralax) 17 gm PO DAILY PRN PRN Reason: Constipation Promethazine HCl (Phenergan) 25 mg PO Q6H PRN PRN Reason: Nausea/Vomiting Quetiapine Fumarate (Seroquel) 50 mg PO BEDTIME [facility] Last Admin: 08/19/17 22:11 Dose: 50 mg Senna/Docusate Sodium (Senna Plus) 1 tab PO BID PRN PRN Reason: Constipation Simvastatin (Zocor) 20 mg PO BEDTIME [facility] Last Admin: 08/19/17 22:12 Dose: 20 mg Sodium Chloride (Saline Flush) 10 ml FLUSH ASDIRECTED PRN PRN Reason: Keep Vein Open Temazepam (Restoril) 7.5 mg PO BEDTIME PRN PRN Reason: Sleep Discontinued Medications Famotidine (Pepcid) 20 mg IVPUSH BID [facility] Famotidine (Pepcid) 20 mg PO BID [facility] Last Admin: 08/19/17 22:33 Dose: Not Given Haloperidol Lactate (Haldol) 1 mg IVPUSH ONETIME ONE Stop: 08/20/17 02:08 Last Admin: 08/20/17 02:48 Dose: 1 mg Hydromorphone HCl (Dilaudid) 0.25 mg IVPUSH ONETIME ONE Stop: 08/19/17 10:10 Last Admin: 08/19/17 10:13 Dose: 0.25 mg Hydromorphone HCl (Dilaudid) 0.25 mg IVPUSH ONETIME ONE Stop: 08/19/17 13:20 Last Admin: 08/19/17 13:24 Dose: 0.25 mg Hydromorphone HCl (Dilaudid) 0.25 mg IVPUSH Q2H PRN PRN Reason: Pain (severe 7-10) Last Admin: 08/20/17 01:45 Dose: 0.25 mg Sodium Chloride (Normal Saline) 1,000 mls @ 150 mls/hr IV ASDIRECTED MICHELLE Last Admin: 08/19/17 11:20 Dose: 150 mls/hr Sodium Chloride (Normal Saline) 250 mls @ 999 mls/hr IV ONETIME ONE Stop: 08/20/17 02:30 Last Admin: 08/20/17 02:32 Dose: 999 mls/hr Sodium Chloride (Normal Saline) 1,000 mls @ 75 mls/hr IV ASDIRECTED [facility] Stop: 08/20/17 09:00 Last Admin: 08/20/17 03:00 Dose: 75 mls/hr Sodium Chloride (Normal Saline) Confirm Administered Dose 1,000 mls @ as directed .ROUTE .STK-MED ONE Stop: 08/20/17 02:24 Last Admin: 08/20/17 02:50 Dose: Not Given Sodium Chloride (Saline Flush) 10 ml FLUSH ASDIRECTED PRN PRN Reason: Keep Vein Open Last Admin: 08/19/17 10:14 Dose: 10 ml
[2017-08-20] MEDS: Acetaminophen/oxyCODONE 325-5 MG Tab PO PRN (11:40)
[2017-08-20] MEDS ORDERED: Ondansetron 4 MG/2 ML SDV IVPUSH PRN (12:06)
[2017-08-20] MEDS ORDERED: hydrALAZINE 20 MG/ML SDV IVPUSH PRN ×2 (12:10→14:50)
[2017-08-20] MEDS ORDERED: Dextrose 5%-0.9% NaCl 1,000 ML IV SCH ×2 (12:15→20:45)
[2017-08-20] MEDS ORDERED: HYDROmorphone 0.5 MG/0.5 ML SYRINGE IVPUSH ONE (12:30)
[2017-08-20] MEDS: Metoprolol Tartrate 5 MG/5 ML SDV IVPUSH SCH ×3 (12:30→21:29)
[2017-08-20] MEDS ORDERED: HYDROmorphone 1 MG/ML Syringe ONE (12:48)
[2017-08-20] MEDS: fentaNYL 12 MCG/HR Transdermal Patch TRDERM SCH (12:56)
--- NOTE | 2017-08-20 14:47 | PCM.PN ---
- General Info Date of Service: 08/20/17 Subjective Update: 87 year old female currently complaining of N/V with clear liquids; has refused her medication since last night. A brief transfer with A [facility] with RVR noted on telemetry. She has returned to [place] telemetry, continues to refuse meds and will be treated IV. Repair of hip scheduled around 1500 hour on Tuesday, 08/22. Functional Status: Reports: Tolerating Diet (no), Ambulating (no), Urinating ( yes, allan) - Review of Systems General: Reports: No Symptoms HEENT: Reports: No Symptoms Pulmonary: Reports: No Symptoms Cardiovascular: Reports: No Symptoms Gastrointestinal: Reports: No Symptoms Genitourinary: Reports: No Symptoms Musculoskeletal: Reports: No Symptoms Skin: Reports: No Symptoms Neurological: Reports: No Symptoms Psychiatric: Reports: Agitation - Patient Data Vitals - Most Recent: Last Vital Signs Temp 37.8 C 08/20/17 12:27 Pulse 114 H 08/20/17 12:30 Resp 20 08/20/17 12:27 BP 125/86 08/20/17 12:30 Pulse Ox 91 L 08/20/17 12:27 Weight - Most Recent: 60.101 kg I&O - Last 24 Hours: Intake & Output 08/19/17 08/20/17 08/20/17 22:59 06:59 14:59 Intake Total 1268 600 90 Output Total 350 Balance 918 600 90 Lab Results Last 24 Hours: Laboratory Results - last 24 hr 08/19/17 08/19/17 08/20/17 Range/Units 12:50 14:23 08:44 WBC 15.53 H (3.98-10.04) K/mm3 RBC 3.80 L (3.98-5.22) M/mm3 Hgb 11.5 (11.2-15.7) gm/L Hct 36.2 (34.1-44.9) % MCV 95.3 H (79.4-94.8) fl MCH 30.3 (25.6-32.2) pg MCHC 31.8 L (32.2-35.5) g/dl RDW Std Deviation 57.8 H (36.4-46.3) fL Plt Count 119 L (182-369) K/mm3 MPV 11.5 (9.4-12.3) fl Neut % (Auto) 64.8 (34.0-71.1) % Lymph % (Auto) 17.5 L (19.3-51.7) % [place] % (Auto) 12.7 H (4.7-12.5) % Eos % (Auto) 4.2 (0.7-5.8) Baso % (Auto) 0.5 (0.1-1.2) % Neut # (Auto) 10.07 H (1.56-6.13) K/mm3 Lymph # (Auto) 2.71 (1.18-3.74) K/mm3 [place] # (Auto) 1.97 H (0.24-0.36) K/mm3 Eos # (Auto) 0.66 H (0.04-0.36) K/mm3 Baso # (Auto) 0.07 (0.01-0.08) K/mm3 Manual Slide Review Normal smear Sodium (136-145) mEq/L Potassium (3.5-5.1) mEq/L Chloride (98-107) mEq/L Carbon Dioxide (21-32) mEq/L Anion Gap (5-15) BUN (7-18) mg/dL Creatinine (0.55-1.02) mg/dL Est Cr Clr Drug Dosing mL/min Estimated GFR (MDRD) (>60) mL/min BUN/Creatinine Ratio (14-18) Glucose (83-115) mg/dL Calcium (8.5-10.1) mg/dL C-Reactive Protein (<1.0) mg/dL Urine Color Yellow (Yellow) Urine Appearance Clear (Clear) Urine pH 6.0 (5.0-8.0) Ur Specific [place] 1.020 (1.005-1.030) Urine Protein Negative (Negative) Urine Glucose (UA) Negative (Negative) Urine Ketones Negative (Negative) Urine Occult Blood Negative (Negative) Urine Nitrite Negative (Negative) Urine Bilirubin Negative (Negative) Urine Urobilinogen 0.2 (0.2-1.0) Ur Leukocyte Esterase 2+ H (Negative) Urine RBC 0-5 (0-5) /hpf Urine WBC 20-30 H (0-5) /hpf Ur Epithelial Cells 0-5 (0-5) /hpf Urine Bacteria Moderate H (FEW) /hpf Urine Mucus Not seen (FEW) /hpf MRSA (PCR) Negative 08/20/17 Range/Units 08:44 WBC (3.98-10.04) K/mm3 RBC (3.98-5.22) M/mm3 Hgb (11.2-15.7) gm/L Hct (34.1-44.9) % MCV (79.4-94.8) fl MCH (25.6-32.2) pg MCHC (32.2-35.5) g/dl RDW Std Deviation (36.4-46.3) fL Plt Count (182-369) K/mm3 MPV (9.4-12.3) fl Neut % (Auto) (34.0-71.1) % Lymph % (Auto) (19.3-51.7) % [place] % (Auto) (4.7-12.5) % Eos % (Auto) (0.7-5.8) Baso % (Auto) (0.1-1.2) % Neut # (Auto) (1.56-6.13) K/mm3 Lymph # (Auto) (1.18-3.74) K/mm3 [place] # (Auto) (0.24-0.36) K/mm3 Eos # (Auto) (0.04-0.36) K/mm3 Baso # (Auto) (0.01-0.08) K/mm3 Manual Slide Review Sodium 143 (136-145) mEq/L Potassium 4.7 (3.5-5.1) mEq/L Chloride 108 H (98-107) mEq/L Carbon Dioxide 22 (21-32) mEq/L Anion Gap 17.7 H (5-15) BUN 35 H (7-18) mg/dL Creatinine 1.4 H (0.55-1.02) mg/dL Est Cr Clr Drug Dosing 23.42 mL/min Estimated GFR (MDRD) 36 (>60) mL/min BUN/Creatinine Ratio 25.0 H (14-18) Glucose 105 (83-115) mg/dL Calcium 9.5 (8.5-10.1) mg/dL C-Reactive Protein 17.5 H* (<1.0) mg/dL Urine Color (Yellow) Urine Appearance (Clear) Urine pH (5.0-8.0) Ur Specific [place] (1.005-1.030) Urine Protein (Negative) Urine Glucose (UA) (Negative) Urine Ketones (Negative) Urine Occult Blood (Negative) Urine Nitrite (Negative) Urine Bilirubin (Negative) Urine Urobilinogen (0.2-1.0) Ur Leukocyte Esterase (Negative) Urine RBC (0-5) /hpf Urine WBC (0-5) /hpf Ur Epithelial Cells (0-5) /hpf Urine Bacteria (FEW) /hpf Urine Mucus (FEW) /hpf MRSA (PCR) Med Orders - Current: Current Medications Acetaminophen (Tylenol) 650 mg PO Q4H PRN PRN Reason: Pain (Mild 1-3)/fever Artificial Tears (Isopto Tears 0.5% Ophth Soln) 0 ml EYEBOTH BID [facility] Last Admin: 08/20/17 09:48 Dose: Not Given Bisacodyl (Dulcolax) 5 mg PO DAILY PRN PRN Reason: Constipation Carbamazepine (Tegretol Tab) 200 mg PO BID [facility] Last Admin: 08/20/17 08:56 Dose: Not Given Cholecalciferol (Vitamin D3) 2,000 units PO DAILY [facility] Last Admin: 08/20/17 08:56 Dose: Not Given Diltiazem HCl (Cardizem Cd) 120 mg PO DAILY [facility] Last Admin: 08/20/17 08:55 Dose: Not Given Docusate Sodium (Colace) 100 mg PO BID PRN PRN Reason: Constipation Famotidine (Pepcid) 20 mg PO DAILY [facility] Last Admin: 08/20/17 08:56 Dose: Not Given Fentanyl (Duragesic) 12 mcg TRDERM Q72H [facility] Last Admin: 08/20/17 12:56 Dose: 12 mcg Hydralazine HCl (Apresoline) 10 mg IVPUSH Q8H PRN PRN Reason: Hypertension Hydromorphone HCl (Dilaudid) 1 mg IVPUSH Q6H PRN PRN Reason: Pain Last Admin: 08/20/17 08:41 Dose: 1 mg Promethazine HCl 6.25 mg/ (Sodium Chloride) 50.25 mls @ 100 mls/hr IV Q6H PRN PRN Reason: Nausea/Vomiting Ceftriaxone Sodium 2 gm/ (Sodium Chloride) 100 mls @ 100 mls/hr IV Q24H [facility] Stop: 08/21/17 18:01 Last Admin: 08/19/17 18:56 Dose: 100 mls/hr Diltiazem HCl 125 mg/ Sodium (Chloride) 125 mls @ 10 mls/hr IV TITRATE [facility]; Protocol Last Admin: 08/20/17 07:39 Dose: 5 mg/hr, 5 mls/hr Dextrose/Sodium Chloride (Dextrose 5%-Normal Saline) 1,000 mls @ 100 mls/hr IV ASDIRECTED [facility] Last Admin: 08/20/17 12:39 Dose: 100 mls/hr Levothyroxine Sodium (Synthroid) 88 mcg PO DAILY [facility] Last Admin: 08/20/17 08:56 Dose: Not Given Lorazepam (Ativan) 0.5 mg IVPUSH Q8H PRN PRN Reason: Anxiety Magnesium Hydroxide (Milk Of Magnesia) 30 ml PO Q12H PRN PRN Reason: Constipation Metoprolol Tartrate (Lopressor) 50 mg PO BID [facility] Last Admin: 08/20/17 08:56 Dose: Not Given Metoprolol Tartrate (Lopressor) 5 mg IVPUSH Q4H [facility] Last Admin: 08/20/17 12:30 Dose: 5 mg Miscellaneous Information (Remove Patch) 1 ea TRDERM Q72H [facility] Restasis Ophth Soln (Own Med) 0 drop EYEBOTH BID [facility] Last Admin: 08/20/17 09:48 Dose: Not Given Ondansetron HCl (Zofran) 4 mg IVPUSH Q8H PRN PRN Reason: Nausea/Vomiting Last Admin: 08/20/17 12:21 Dose: 4 mg Oxycodone/Acetaminophen (Percocet 325-5 Mg) 0.5 tab PO Q4H PRN PRN Reason: Pain (moderate 4-6) Last Admin: 08/19/17 18:01 Dose: 0.5 tab Polyethylene Glycol (Miralax) 17 gm PO DAILY PRN PRN Reason: Constipation Promethazine HCl (Phenergan) 25 mg PO Q6H PRN PRN Reason: Nausea/Vomiting Quetiapine Fumarate (Seroquel) 50 mg PO BEDTIME [facility] Last Admin: 08/19/17 22:11 Dose: 50 mg Senna/Docusate Sodium (Senna Plus) 1 tab PO BID PRN PRN Reason: Constipation Simvastatin (Zocor) 20 mg PO BEDTIME [facility] Last Admin: 08/19/17 22:12 Dose: 20 mg Sodium Chloride (Saline Flush) 10 ml FLUSH ASDIRECTED PRN PRN Reason: Keep Vein Open Temazepam (Restoril) 7.5 mg PO BEDTIME PRN PRN Reason: Sleep Discontinued Medications Famotidine (Pepcid) 20 mg IVPUSH BID [facility] Famotidine (Pepcid) 20 mg PO BID [facility] Last Admin: 08/19/17 22:33 Dose: Not Given Furosemide (Lasix) 20 mg PO ACDINNER [facility] Haloperidol Lactate (Haldol) 1 mg IVPUSH ONETIME ONE Stop: 08/20/17 02:08 Last Admin: 08/20/17 02:48 Dose: 1 mg Hydralazine HCl (Apresoline) 10 mg IVPUSH Q4H PRN PRN Reason: Hypertension Hydromorphone HCl (Dilaudid) 0.25 mg IVPUSH ONETIME ONE Stop: 08/19/17 10:10 Last Admin: 08/19/17 10:13 Dose: 0.25 mg Hydromorphone HCl (Dilaudid) 0.25 mg IVPUSH ONETIME ONE Stop: 08/19/17 13:20 Last Admin: 08/19/17 13:24 Dose: 0.25 mg Hydromorphone HCl (Dilaudid) 0.25 mg IVPUSH Q2H PRN PRN Reason: Pain (severe 7-10) Last Admin: 08/20/17 01:45 Dose: 0.25 mg Hydromorphone HCl (Dilaudid) 0.5 mg IVPUSH ONETIME ONE Stop: 08/20/17 12:31 Hydromorphone HCl (Dilaudid) Confirm Administered Dose 1 mg .ROUTE .STK-MED ONE Stop: 08/20/17 12:49 Last Admin: 08/20/17 12:57 Dose: 1 mg Sodium Chloride (Normal Saline) 1,000 mls @ 150 mls/hr IV ASDIRECTED [facility] Last Admin: 08/19/17 11:20 Dose: 150 mls/hr Sodium Chloride (Normal Saline) 250 mls @ 999 mls/hr IV ONETIME ONE Stop: 08/20/17 02:30 Last Admin: 08/20/17 02:32 Dose: 999 mls/hr Sodium Chloride (Normal Saline) 1,000 mls @ 75 mls/hr IV ASDIRECTED [facility] Stop: 08/20/17 09:00 Last Admin: 08/20/17 03:00 Dose: 75 mls/hr Sodium Chloride (Normal Saline) Confirm Administered Dose 1,000 mls @ as directed .ROUTE .STK-MED ONE Stop: 08/20/17 02:24 Last Admin: 08/20/17 02:50 Dose: Not Given Lisinopril (Prinivil) 5 mg PO DAILY [facility] Last Admin: 08/20/17 08:56 Dose: Not Given Metoprolol Tartrate (Lopressor) 5 mg IVPUSH Q6H PRN PRN Reason: Tachycardia Last Admin: 08/20/17 08:13 Dose: 5 mg Sodium Chloride (Saline Flush) 10 ml FLUSH ASDIRECTED PRN PRN Reason: Keep Vein Open Last Admin: 08/19/17 10:14 Dose: 10 ml - Exam Quality Assessment: DVT Prophylaxis General: Alert, Oriented HEENT: Pupils Equal, Pupils Reactive, EOMI Neck: Trachea Midline, No JVD Lungs: Normal Respiratory Effort, Decreased Breath Sounds Cardiovascular: Regular Rate, Irregular Rhythm GI/Abdominal Exam: Normal Bowel Sounds, Soft, Non-Tender, No Organomegaly, No Distention (Female) Exam: Deferred Back Exam: Normal Inspection Extremities: Normal Inspection, Normal Capillary Refill Skin: Warm Neurological: No New Focal Deficit, Normal Speech Psy/Mental Status: Alert, Agitated - Problem List Review Problem List Initiated/Reviewed/Updated: Yes - My Orders Last 24 Hours: My Active Orders 08/20/17 02:05 HYDROmorphone [Dilaudid] 1 mg IVPUSH Q6H PRN 08/20/17 02:07 LORazepam [Ativan] 0.5 mg IVPUSH Q8H PRN 08/20/17 02:15 Diltiazem 125 mg Sodium Chloride 0.9% [Normal Saline] 100 ml IV TITRATE 08/20/17 09:11 Patient Status [ADT] Routine 08/20/17 12:02 Bladder Irrigation [RC] ASDIRECTED 08/20/17 12:06 Ondansetron [Zofran] 4 mg IVPUSH Q8H PRN 08/20/17 12:10 hydrALAZINE [Apresoline] 10 mg IVPUSH Q8H PRN 08/20/17 12:15 Dextrose 5%-0.9% NaCl [Dextrose 5%-Normal Saline] 1,000 ml IV ASDIRECTED fentaNYL [Duragesic] 12 mcg TRDERM Q72H 08/20/17 12:30 Metoprolol Tartrate [Lopressor] 5 mg IVPUSH Q4H 08/23/17 12:15 Remove Patch 1 ea TRDERM Q72H - Plan Plan:: I/P: Acute: Right Femoral Neck Fx -Risk Factors: Dementia/Confusion, Difficulty ambulating, Osteoporosis/ Osteoarthritis -S/p unwitnessed fall at [facility] last evening; limited history 2/2 dementia -Hip Xray in ED--> Right Femoral Head Fx -Consult orthopedic surgeon Dr. Iglesias --> Will do surgery on Tuesday -Hold Eliquis until after surgery -Pain management PRN -May need a walker to prevent future falls, consult PT/OT UTI -U/A ordered in ED--> felton sensitive UTI -Low grade fever of 99.6 -Unable to get ROS due to dementia -Urinary catheter inserted in ED 2/2 fracture -Rocephin x48 hours-->start Keflex after 48 hours Chronic: Dementia Osteoporosis/Osteoarthritis GERD Hypothyroid Anxiety Hemorrhagic CVA Afib/Aflutter on Eliquis--> HOLD ELIQUIS NOW UNTIL AFTER SURGERY HLD CHF HTN MVR Trigeminal neuralgia Plan: DVT prophylaxis R hip frcature repair--08/22/17 Transferred to Med-Surg today from ICU She remains stable Other orders as indicated above Continue home medications as directed Routine AM labs NDD3 diet; Boost 90mL 6x per day ([facility] regimen) DVT Prophylaxis: SCD, NICO hose GI Prophylaxis: Pepcid PT/OT for discharge planning SW/CM consult for discharge planning Ambulated as tolerated Recommend SNF/Rehab for reconditioning Code Status: DNR/DNI; PCP: Dr. Chand From [facility]
[2017-08-20] MEDS ORDERED: Furosemide 20 MG Tab PO SCH (16:00)
[2017-08-20] MEDS: cefTRIAXone 2 GM in Sodium Chloride 0.9% 100 ML IV SCH (17:43)
[2017-08-20] MEDS: LORazepam 2 MG/ML SDV IVPUSH PRN (18:00)
[2017-08-20] MEDS: QUEtiapine 25 MG Tab PO SCH ×2 (19:57→21:32)
[2017-08-20] MEDS: Simvastatin 20 MG Tab PO SCH ×2 (20:03→21:32)
[2017-08-21] MEDS: Metoprolol Tartrate 5 MG/5 ML SDV IVPUSH SCH ×6 (01:26→21:26)
[2017-08-21] MEDS: HYDROmorphone 0.5 MG/0.5 ML SYRINGE IVPUSH PRN ×3 (04:07→18:59)
[2017-08-21] MEDS: LORazepam 2 MG/ML SDV IVPUSH PRN ×2 (06:44→15:45)
[2017-08-21] MEDS: Hypromellose 0.5% Ophth Soln 15 ML Bottle EYEBOTH SCH ×2 (08:46→21:21)
[2017-08-21] MEDS: RESTASIS EYEBOTH SCH ×2 (08:49→21:22)
[2017-08-21] MEDS: Famotidine 20 MG Tab PO SCH (09:05)
[2017-08-21] MEDS: Metoprolol Tartrate 50 MG Tab PO SCH ×3 (09:05→21:23)
[2017-08-21] MEDS: Diltiazem 120 MG Cap.CD PO SCH (09:05)
[2017-08-21] MEDS: Levothyroxine 88 MCG Tab PO SCH (09:05)
[2017-08-21] MEDS: Cholecalciferol (Vitamin D3) 1,000 Unit Tab PO SCH (09:06)
[2017-08-21] MEDS: CARBAMAZEPINE 200 MG PO SCH ×2 (09:06→21:22)
--- NOTE | 2017-08-21 13:49 | PCM.PN ---
- General Info Date of Service: 08/21/17 Functional Status: Reports: Pain Controlled, Urinating - Review of Systems General: Reports: Weakness HEENT: Reports: No Symptoms Pulmonary: Reports: No Symptoms Cardiovascular: Reports: No Symptoms Gastrointestinal: Reports: No Symptoms Genitourinary: Reports: No Symptoms Musculoskeletal: Reports: No Symptoms Skin: Reports: No Symptoms Neurological: Reports: No Symptoms Psychiatric: Reports: No Symptoms - Patient Data Vitals - Most Recent: Last Vital Signs Temp 36.6 C 08/21/17 07:54 Pulse 105 H 08/21/17 11:31 Resp 16 08/21/17 07:54 BP 149/98 H 08/21/17 11:31 Pulse Ox 90 L 08/21/17 07:54 Weight - Most Recent: 59.829 kg I&O - Last 24 Hours: Intake & Output 08/20/17 08/21/17 08/21/17 22:59 06:59 14:59 Intake Total 884 725 0 Output Total 475 Balance 884 250 0 Lab Results Last 24 Hours: Laboratory Results - last 24 hr 08/21/17 08/21/17 08/21/17 Range/Units 05:53 05:53 05:53 WBC 9.13 (3.98-10.04) K/mm3 RBC 3.37 L (3.98-5.22) M/mm3 Hgb 10.2 L (11.2-15.7) gm/L Hct 33.0 L (34.1-44.9) % MCV 97.9 H (79.4-94.8) fl MCH 30.3 (25.6-32.2) pg MCHC 30.9 L (32.2-35.5) g/dl RDW Std Deviation 60.6 H (36.4-46.3) fL Plt Count 127 L (182-369) K/mm3 MPV 11.4 (9.4-12.3) fl Neut % (Auto) 66.0 (34.0-71.1) % Lymph % (Auto) 16.5 L (19.3-51.7) % [place] % (Auto) 15.4 H (4.7-12.5) % Eos % (Auto) 1.5 (0.7-5.8) Baso % (Auto) 0.2 (0.1-1.2) % Neut # (Auto) 6.01 (1.56-6.13) K/mm3 Lymph # (Auto) 1.51 (1.18-3.74) K/mm3 [place] # (Auto) 1.41 H (0.24-0.36) K/mm3 Eos # (Auto) 0.14 (0.04-0.36) K/mm3 Baso # (Auto) 0.02 (0.01-0.08) K/mm3 Manual Slide Review Abnormal smear PT 11.1 (9.5-12.1) SECONDS INR 1.02 APTT 31 (24-31) SECONDS Sodium 146 H (136-145) mEq/L Potassium 4.7 (3.5-5.1) mEq/L Chloride 115 H (98-107) mEq/L Carbon Dioxide 24 (21-32) mEq/L Anion Gap 11.7 (5-15) BUN 36 H (7-18) mg/dL Creatinine 1.4 H (0.55-1.02) mg/dL Est Cr Clr Drug Dosing 23.42 mL/min Estimated GFR (MDRD) 36 (>60) mL/min BUN/Creatinine Ratio 25.7 H (14-18) Glucose 98 (83-115) mg/dL Calcium 8.6 (8.5-10.1) mg/dL Magnesium (1.8-2.4) mg/dl C-Reactive Protein 23.4 H* (<1.0) mg/dL 08/21/17 Range/Units 05:53 WBC (3.98-10.04) K/mm3 RBC (3.98-5.22) M/mm3 Hgb (11.2-15.7) gm/L Hct (34.1-44.9) % MCV (79.4-94.8) fl MCH (25.6-32.2) pg MCHC (32.2-35.5) g/dl RDW Std Deviation (36.4-46.3) fL Plt Count (182-369) K/mm3 MPV (9.4-12.3) fl Neut % (Auto) (34.0-71.1) % Lymph % (Auto) (19.3-51.7) % [place] % (Auto) (4.7-12.5) % Eos % (Auto) (0.7-5.8) Baso % (Auto) (0.1-1.2) % Neut # (Auto) (1.56-6.13) K/mm3 Lymph # (Auto) (1.18-3.74) K/mm3 [place] # (Auto) (0.24-0.36) K/mm3 Eos # (Auto) (0.04-0.36) K/mm3 Baso # (Auto) (0.01-0.08) K/mm3 Manual Slide Review PT (9.5-12.1) SECONDS INR APTT (24-31) SECONDS Sodium (136-145) mEq/L Potassium (3.5-5.1) mEq/L Chloride (98-107) mEq/L Carbon Dioxide (21-32) mEq/L Anion Gap (5-15) BUN (7-18) mg/dL Creatinine (0.55-1.02) mg/dL Est Cr Clr Drug Dosing mL/min Estimated GFR (MDRD) (>60) mL/min BUN/Creatinine Ratio (14-18) Glucose (83-115) mg/dL Calcium (8.5-10.1) mg/dL Magnesium 2.0 (1.8-2.4) mg/dl C-Reactive Protein (<1.0) mg/dL Med Orders - Current: Current Medications Acetaminophen (Tylenol) 650 mg PO Q4H PRN PRN Reason: Pain (Mild 1-3)/fever Artificial Tears (Isopto Tears 0.5% Ophth Soln) 0 ml EYEBOTH BID [facility] Last Admin: 08/21/17 08:46 Dose: 1 drop Bisacodyl (Dulcolax) 5 mg PO DAILY PRN PRN Reason: Constipation Carbamazepine (Tegretol Tab) 200 mg PO BID [facility] Last Admin: 08/21/17 09:06 Dose: Not Given Cholecalciferol (Vitamin D3) 2,000 units PO DAILY [facility] Last Admin: 08/21/17 09:06 Dose: Not Given Diltiazem HCl (Cardizem Cd) 120 mg PO DAILY [facility] Last Admin: 08/21/17 09:05 Dose: Not Given Docusate Sodium (Colace) 100 mg PO BID PRN PRN Reason: Constipation Famotidine (Pepcid) 20 mg PO DAILY [facility] Last Admin: 08/21/17 09:05 Dose: Not Given Fentanyl (Duragesic) 12 mcg TRDERM Q72H [facility] Last Admin: 08/20/17 12:56 Dose: 12 mcg Hydralazine HCl (Apresoline) 20 mg IVPUSH Q8H PRN PRN Reason: Hypertension Hydromorphone HCl (Dilaudid) 1 mg IVPUSH Q6H PRN PRN Reason: Pain Last Admin: 08/21/17 11:34 Dose: 1 mg Promethazine HCl 6.25 mg/ (Sodium Chloride) 50.25 mls @ 100 mls/hr IV Q6H PRN PRN Reason: Nausea/Vomiting Ceftriaxone Sodium 2 gm/ (Sodium Chloride) 100 mls @ 100 mls/hr IV Q24H [facility] Stop: 08/21/17 18:01 Last Admin: 08/20/17 17:43 Dose: 100 mls/hr Dextrose/Sodium Chloride (Dextrose 5%-Normal Saline) 1,000 mls @ 50 mls/hr IV ASDIRECTED [facility] Last Admin: 08/20/17 21:30 Dose: 50 mls/hr Levothyroxine Sodium (Synthroid) 88 mcg PO DAILY [facility] Last Admin: 08/21/17 09:05 Dose: Not Given Lorazepam (Ativan) 0.5 mg IVPUSH Q8H PRN PRN Reason: Anxiety Last Admin: 08/21/17 06:44 Dose: 0.5 mg Magnesium Hydroxide (Milk Of Magnesia) 30 ml PO Q12H PRN PRN Reason: Constipation Metoprolol Tartrate (Lopressor) 50 mg PO BID [facility] Last Admin: 08/21/17 09:05 Dose: Not Given Metoprolol Tartrate (Lopressor) 5 mg IVPUSH Q4H [facility] Last Admin: 08/21/17 11:31 Dose: 5 mg Miscellaneous Information (Remove Patch) 1 ea TRDERM Q72H [facility] Restasis Ophth Soln (Own Med) 0 drop EYEBOTH BID [facility] Last Admin: 08/21/17 08:49 Dose: 1 drop Ondansetron HCl (Zofran) 4 mg IVPUSH Q8H PRN PRN Reason: Nausea/Vomiting Last Admin: 08/20/17 12:21 Dose: 4 mg Oxycodone/Acetaminophen (Percocet 325-5 Mg) 0.5 tab PO Q4H PRN PRN Reason: Pain (moderate 4-6) Last Admin: 08/19/17 18:01 Dose: 0.5 tab Polyethylene Glycol (Miralax) 17 gm PO DAILY PRN PRN Reason: Constipation Promethazine HCl (Phenergan) 25 mg PO Q6H PRN PRN Reason: Nausea/Vomiting Quetiapine Fumarate (Seroquel) 50 mg PO BEDTIME [facility] Last Admin: 08/20/17 21:32 Dose: Not Given Senna/Docusate Sodium (Senna Plus) 1 tab PO BID PRN PRN Reason: Constipation Simvastatin (Zocor) 20 mg PO BEDTIME [facility] Last Admin: 08/20/17 21:32 Dose: Not Given Sodium Chloride (Saline Flush) 10 ml FLUSH ASDIRECTED PRN PRN Reason: Keep Vein Open Temazepam (Restoril) 7.5 mg PO BEDTIME PRN PRN Reason: Sleep Discontinued Medications Famotidine (Pepcid) 20 mg IVPUSH BID [facility] Famotidine (Pepcid) 20 mg PO BID [facility] Last Admin: 08/19/17 22:33 Dose: Not Given Furosemide (Lasix) 20 mg PO ACDINNER [facility] Haloperidol Lactate (Haldol) 1 mg IVPUSH ONETIME ONE Stop: 08/20/17 02:08 Last Admin: 08/20/17 02:48 Dose: 1 mg Hydralazine HCl (Apresoline) 10 mg IVPUSH Q4H PRN PRN Reason: Hypertension Hydralazine HCl (Apresoline) 10 mg IVPUSH Q8H PRN PRN Reason: Hypertension Hydromorphone HCl (Dilaudid) 0.25 mg IVPUSH ONETIME ONE Stop: 08/19/17 10:10 Last Admin: 08/19/17 10:13 Dose: 0.25 mg Hydromorphone HCl (Dilaudid) 0.25 mg IVPUSH ONETIME ONE Stop: 08/19/17 13:20 Last Admin: 08/19/17 13:24 Dose: 0.25 mg Hydromorphone HCl (Dilaudid) 0.25 mg IVPUSH Q2H PRN PRN Reason: Pain (severe 7-10) Last Admin: 08/20/17 01:45 Dose: 0.25 mg Hydromorphone HCl (Dilaudid) 0.5 mg IVPUSH ONETIME ONE Stop: 08/20/17 12:31 Last Admin: 08/20/17 14:52 Dose: Not Given Hydromorphone HCl (Dilaudid) Confirm Administered Dose 1 mg .ROUTE .STK-Just around Us ONE Stop: 08/20/17 12:49 Last Admin: 08/20/17 12:57 Dose: 1 mg Sodium Chloride (Normal Saline) 1,000 mls @ 150 mls/hr IV ASDIRECTED [facility] Last Admin: 08/19/17 11:20 Dose: 150 mls/hr Diltiazem HCl 125 mg/ Sodium (Chloride) 125 mls @ 10 mls/hr IV TITRATE [facility]; Protocol Last Admin: 08/20/17 07:39 Dose: 5 mg/hr, 5 mls/hr Sodium Chloride (Normal Saline) 250 mls @ 999 mls/hr IV ONETIME ONE Stop: 08/20/17 02:30 Last Admin: 08/20/17 02:32 Dose: 999 mls/hr Sodium Chloride (Normal Saline) 1,000 mls @ 75 mls/hr IV ASDIRECTED [facility] Stop: 08/20/17 09:00 Last Admin: 08/20/17 03:00 Dose: 75 mls/hr Sodium Chloride (Normal Saline) Confirm Administered Dose 1,000 mls @ as directed .ROUTE .InteligisticsK-MED ONE Stop: 08/20/17 02:24 Last Admin: 08/20/17 02:50 Dose: Not Given Dextrose/Sodium Chloride (Dextrose 5%-Normal Saline) 1,000 mls @ 100 mls/hr IV ASDIRECTED MICHELLE Last Admin: 08/20/17 12:39 Dose: 100 mls/hr Lisinopril (Prinivil) 5 mg PO DAILY MICHELLE Last Admin: 08/20/17 08:56 Dose: Not Given Metoprolol Tartrate (Lopressor) 5 mg IVPUSH Q6H PRN PRN Reason: Tachycardia Last Admin: 08/20/17 08:13 Dose: 5 mg Sodium Chloride (Saline Flush) 10 ml FLUSH ASDIRECTED PRN PRN Reason: Keep Vein Open Last Admin: 08/19/17 10:14 Dose: 10 ml - Exam Quality Assessment: Supplemental Oxygen, DVT Prophylaxis General: Alert, Oriented, Cooperative, No Acute Distress HEENT: Pupils Equal, Pupils Reactive, EOMI Neck: Trachea Midline, No JVD Lungs: Normal Respiratory Effort Cardiovascular: Regular Rate, Irregular Rhythm GI/Abdominal Exam: Normal Bowel Sounds, Soft, Non-Tender, No Organomegaly, No Distention (Female) Exam: Deferred Back Exam: Normal Inspection Extremities: Normal Inspection, Normal Capillary Refill Skin: Warm Neurological: No New Focal Deficit, Normal Speech Psy/Mental Status: Alert - Problem List Review Problem List Initiated/Reviewed/Updated: Yes - My Orders Last 24 Hours: My Active Orders 08/20/17 14:50 hydrALAZINE [Apresoline] 20 mg IVPUSH Q8H PRN 08/20/17 20:45 Dextrose 5%-0.9% NaCl [Dextrose 5%-Normal Saline] 1,000 ml IV ASDIRECTED 08/22/17 05:00 MAGNESIUM [CHEM] DAILY 08/23/17 05:00 MAGNESIUM [CHEM] DAILY 08/23/17 12:15 Remove Patch 1 ea TRDERM Q72H - Plan Plan:: I/P: Acute: Right Femoral Neck Fx -Risk Factors: Dementia/Confusion, Difficulty ambulating, Osteoporosis/ Osteoarthritis -S/p unwitnessed fall at [facility] last evening; limited history 2/2 dementia -Hip Xray in ED--> Right Femoral Head Fx -Consult orthopedic surgeon Dr. Iglesias --> Will do surgery on Tuesday -Hold Eliquis until after surgery -Pain management PRN -May need a walker to prevent future falls, consult PT/OT UTI -U/A ordered in ED--> felton sensitive UTI -Low grade fever of 99.6 -Unable to get ROS due to dementia -Urinary catheter inserted in ED 2/2 fracture -Rocephin x48 hours-->start Keflex after 48 hours Chronic: Dementia Osteoporosis/Osteoarthritis GERD Hypothyroid Anxiety Hemorrhagic CVA Afib/Aflutter on Eliquis--> HOLD ELIQUIS NOW UNTIL AFTER SURGERY HLD CHF HTN MVR Trigeminal neuralgia Plan: DVT prophylaxis R hip frcature repair--08/22/17 Other orders as indicated above Continue home medications as directed Routine AM labs NDD3 diet; Boost 90mL 6x per day ([facility] regimen) DVT Prophylaxis: SCD, NICO hose GI Prophylaxis: Pepcid PT/OT for discharge planning SW/CM consult for discharge planning Recommend SNF/Rehab for reconditioning Code Status: DNR/DNI; PCP: [facility] Chand [facility]
[2017-08-21] MEDS ORDERED: hydrALAZINE 20 MG/ML SDV IVPUSH PRN (18:02)
[2017-08-21] MEDS: cefTRIAXone 2 GM in Sodium Chloride 0.9% 100 ML IV SCH (18:22)
[2017-08-21] MEDS: Simvastatin 20 MG Tab PO SCH (21:22)
[2017-08-21] MEDS: QUEtiapine 25 MG Tab PO SCH (21:23)
[2017-08-22] MEDS: Metoprolol Tartrate 5 MG/5 ML SDV IVPUSH SCH ×6 (00:23→21:46)
[2017-08-22] MEDS: LORazepam 2 MG/ML SDV IVPUSH PRN ×2 (00:25→21:57)
[2017-08-22] MEDS: HYDROmorphone 0.5 MG/0.5 ML SYRINGE IVPUSH PRN (05:36)
[2017-08-22] MEDS: Sodium Chloride 0.45% 1,000 ML IV SCH (06:26)
[2017-08-22] MEDS ORDERED: Naloxone 0.4 MG/ML SDV IVPUSH PRN (07:17)
[2017-08-22] MEDS: Metoprolol Tartrate 50 MG Tab PO SCH ×2 (09:29→18:04)
[2017-08-22] MEDS: Levothyroxine 88 MCG Tab PO SCH (09:31)
[2017-08-22] MEDS: CARBAMAZEPINE 200 MG PO SCH (09:31)
[2017-08-22] MEDS: Famotidine 20 MG Tab PO SCH (09:31)
[2017-08-22] MEDS: Diltiazem 120 MG Cap.CD PO SCH (09:31)
[2017-08-22] MEDS: RESTASIS EYEBOTH SCH (09:36)
[2017-08-22] MEDS: Hypromellose 0.5% Ophth Soln 15 ML Bottle EYEBOTH SCH (09:36)
[2017-08-22] MEDS: Cholecalciferol (Vitamin D3) 1,000 Unit Tab PO SCH (09:37)
--- NOTE | 2017-08-22 09:37 | PCM.CONS ---
H&P History of Present Illness - General Date of Service: 08/19/17 Admit Problem/Dx: Admission Diagnosis/Problem Admission Diagnosis/Problem Hip fracture requiring operative repair Source of Information: Family, Provider - History of Present Illness Initial Comments - Free Text/Narative: This is an 87 yo female who fell last and had hip pain at [facility]. The circumstances of the fall are unknown but the patient was unable to ambulate and normally she ambulates with assistance and the use of a walker. The patient has severe dementia so the history is from the ED provider as well as the daughter. As far as she knows no prior history of hip pain. She was transferred here and found to have a femoral neck fracture with no other signs of trauma. - Related Data Allergies/Adverse Reactions: Allergies Allergy/AdvReac Type Severity Reaction Status Date / Time Cephalosporins AdvReac Nausea Verified 08/19/17 16:15 Home Medications: Home Meds Acetaminophen [Tylenol Arthritis Pain] 650 mg PO TID PRN 04/25/14 [History] Levothyroxine [Synthroid] 88 mcg PO DAILY 04/25/14 [History] Simvastatin [Zocor] 20 mg PO BEDTIME 04/25/14 [History] cycloSPORINE [Restasis] 1 drop EYEBOTH BID 04/25/14 [History] Propylene Glycol/Peg 400 [Systane 0.3-0.4% Eye Drops] 1 drop EYEBOTH BID [History] Cholecalciferol (Vitamin D3) [Vitamin D3] 2,000 units PO DAILY #30 tablet [Rx] Famotidine [Pepcid] 20 mg PO BID #60 tablet 01/17/17 [Rx] carBAMazepine [Carbamazepine ER] 200 mg PO BID #60 cpmp.12hr 01/17/17 [Rx] Apixaban [Eliquis] 2.5 mg PO BID #60 tablet 01/31/17 [Rx] Acetaminophen [Tylenol] 650 mg PO TID 07/06/17 [History] Diltiazem [Diltiazem SR] 120 mg PO DAILY #30 cap.er 07/06/17 [Rx] Furosemide 20 mg PO ACDINNER 07/06/17 [History] Metoprolol Tartrate [Lopressor] 50 mg PO BID 07/06/17 [History] QUEtiapine [SEROquel] 50 mg PO BEDTIME 07/06/17 [History] Lisinopril [Prinivil] 5 mg PO DAILY 08/19/17 [History] Past Medical History HEENT History: Reports: Impaired Vision Other HEENT History: partial tooth Cardiovascular History: Reports: Afib, Arrhythmia, High Cholesterol, Hypertension, Other (See Below) Other Cardiovascular History: mitral valve insufficiency, atrial flutter Respiratory History: Reports: None Gastrointestinal History: Reports: GERD Genitourinary History: Reports: Other (See Below) Other Genitourinary History: dysuria 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 PASTER History: Reports: Musculoskeletal History: Reports: Osteoarthritis, Osteoporosis Other Musculoskeletal History: degenerative joint disease, inflammatory spondylopathy Neurological History: Reports: CVA, Other (See Below) Other Neuro History: hx of "brain bleed", trigeminal neuralgia, states "fake seizures", written dx of epilepsy ; pt had 4 head bleeds with the stroke Psychiatric History: Reports: Anxiety, Dementia Endocrine/Metabolic History: Reports: Hypothyroidism Hematologic History: Reports: Other (See Below) Other Hematologic History: on eliquis, Hx of DVT - Infectious Disease History Infectious Disease History: Reports: Chicken Pox - Past Surgical History Head Surgeries/Procedures: Reports: Other (See Below) HEENT Surgical History: Reports: Eye Surgery, Tonsillectomy Female Surgical History: Reports: Breast Biopsy, Hysterectomy Musculoskeletal Surgical History: Reports: Shoulder Surgery, Other (See Below) ( broken femur times 2) Social & Family History - Family History Family Medical History: Noncontributory Cardiac: Reports: CA Neurological: Reports: Other (See Below) Other Neurological Family History: ALS Oncologic: Reports: Leukemia - Tobacco Use Smoking Status *Q: Never Smoker Second Hand Smoke Exposure: No - Caffeine Use Caffeine Use: Reports: None Other Caffeine Use: no coffee at this time Caffeine Use Comment: states around 4 cups a day - Alcohol Use Days Per Week of Alcohol Use: 0 - Recreational Drug Use Recreational Drug Use: No - Living Situation & Occupation Living situation: Reports: , Extended Care Facility ([facility]) Occupation: Retired H&P Review of Systems - Review of Systems: Review Of Systems: ROS reveals no pertinent complaints other than HPI. Exam - Exam Exam: See Below - Vital Signs Vital Signs: Last Vital Signs Temp 36.7 C 08/22/17 05:34 Pulse 115 H 06/04/18 05:34 Resp 18 08/22/17 05:34 BP 128/92 H 08/22/17 05:34 Pulse Ox 99 08/22/17 05:34 Weight: 59.449 kg - Exam Physical Exam Comments:: RLE: shortened and externally rotated, skin is intact, she is moving her toes and ankle, does not react with pain to the right knee, 2+ distal pulses with good cap refill Pelvis: stable to ap and lateral compression BUE: no visible signs of trauma and no tenderness to palpation and is neurovascularly intact - Patient Data Lab Results Last 24 hrs: Laboratory Results - last 24 hr 08/22/17 08/22/17 08/22/17 Range/Units 06:30 06:30 06:30 WBC 9.87 (3.98-10.04) K/mm3 RBC 3.45 L (3.98-5.22) M/mm3 Hgb 10.4 L (11.2-15.7) gm/L Hct 33.8 L (34.1-44.9) % MCV 98.0 H (79.4-94.8) fl MCH 30.1 (25.6-32.2) pg MCHC 30.8 L (32.2-35.5) g/dl RDW Std Deviation 59.4 H (36.4-46.3) fL Plt Count 117 L (182-369) K/mm3 MPV 11.7 (9.4-12.3) fl Neut % (Auto) 66.1 (34.0-71.1) % Lymph % (Auto) 13.6 L (19.3-51.7) % Murray % (Auto) 13.9 H (4.7-12.5) % Eos % (Auto) 5.4 (0.7-5.8) Baso % (Auto) 0.5 (0.1-1.2) % Neut # (Auto) 6.53 H (1.56-6.13) K/mm3 Lymph # (Auto) 1.34 (1.18-3.74) K/mm3 Murray # (Auto) 1.37 H (0.24-0.36) K/mm3 Eos # (Auto) 0.53 H (0.04-0.36) K/mm3 Baso # (Auto) 0.05 (0.01-0.08) K/mm3 Manual Slide Review Abnormal smear PT (9.5-12.1) SECONDS INR Sodium 148 H (136-145) mEq/L Potassium 4.5 (3.5-5.1) mEq/L Chloride 116 H (98-107) mEq/L Carbon Dioxide 24 (21-32) mEq/L Anion Gap 12.5 (5-15) BUN 37 H (7-18) mg/dL Creatinine 1.2 H (0.55-1.02) mg/dL Est Cr Clr Drug Dosing 27.32 mL/min Estimated GFR (MDRD) 42 (>60) mL/min BUN/Creatinine Ratio 30.8 H (14-18) Glucose 85 (83-115) mg/dL Calcium 9.2 (8.5-10.1) mg/dL Magnesium 2.0 (1.8-2.4) mg/dl C-Reactive Protein 21.1 H* (<1.0) mg/dL Blood Type Gel Antibody Screen 08/22/17 08/22/17 Range/Units 06:30 06:30 WBC (3.98-10.04) K/mm3 RBC (3.98-5.22) M/mm3 Hgb (11.2-15.7) gm/L Hct (34.1-44.9) % MCV (79.4-94.8) fl MCH (25.6-32.2) pg MCHC (32.2-35.5) g/dl RDW Std Deviation (36.4-46.3) fL Plt Count (182-369) K/mm3 MPV (9.4-12.3) fl Neut % (Auto) (34.0-71.1) % Lymph % (Auto) (19.3-51.7) % Murray % (Auto) (4.7-12.5) % Eos % (Auto) (0.7-5.8) Baso % (Auto) (0.1-1.2) % Neut # (Auto) (1.56-6.13) K/mm3 Lymph # (Auto) (1.18-3.74) K/mm3 Murray # (Auto) (0.24-0.36) K/mm3 Eos # (Auto) (0.04-0.36) K/mm3 Baso # (Auto) (0.01-0.08) K/mm3 Manual Slide Review PT 11.4 (9.5-12.1) SECONDS INR 1.05 Sodium (136-145) mEq/L Potassium (3.5-5.1) mEq/L Chloride (98-107) mEq/L Carbon Dioxide (21-32) mEq/L Anion Gap (5-15) BUN (7-18) mg/dL Creatinine (0.55-1.02) mg/dL Est Cr Clr Drug Dosing mL/min Estimated GFR (MDRD) (>60) mL/min BUN/Creatinine Ratio (14-18) Glucose (83-115) mg/dL Calcium (8.5-10.1) mg/dL Magnesium (1.8-2.4) mg/dl C-Reactive Protein (<1.0) mg/dL Blood Type A POSITIVE Gel Antibody Screen Negative Result Diagrams: 08/22/17 06:30 08/22/17 06:30 Consult PN Assessment/Plan Procedures: Procedures AIRWAY INHALATION TREATMENT (01/11/17) ASSAY CARBAMAZEPINE TOTAL (01/11/17) ASSAY OF BLOOD/URIC ACID (01/11/17) ASSAY OF MAGNESIUM (07/05/17) ASSAY OF NATRIURETIC PEPTIDE (07/05/17) ASSAY OF PHENYTOIN TOTAL (01/11/17) ASSAY OF TROPONIN QUANT (07/05/17) ASSAY THYROID STIM HORMONE (01/11/17) BLOOD CULTURE FOR BACTERIA (01/11/17) C-REACTIVE PROTEIN (07/05/17) CHANGE GASTROSTOMY TUBE (05/06/17) CHEST X-RAY 1 VIEW FRONTAL (01/11/17) CHEST X-RAY 2VW FRONTAL&LATL (01/11/17) CINE/VID X-RAY THROAT/ESOPH (01/11/17) COMPLETE CBC W/AUTO DIFF WBC (07/05/17) COMPREHEN METABOLIC PANEL (07/05/17) CREATINE MB FRACTION (07/05/17) CT ANGIOGRAPHY CHEST (04/25/14) CT HEAD/BRAIN W/O DYE (01/11/17) CT NECK SPINE W/O DYE (11/06/16) ELECTROCARDIOGRAM TRACING (07/05/17) EMERGENCY DEPT VISIT (07/05/17) EMERGENCY DEPT VISIT (05/06/17) EMERGENCY DEPT VISIT (01/11/17) EMERGENCY DEPT VISIT (04/25/14) EVALUATE SWALLOWING FUNCTION (01/11/17) EXTREMITY STUDY (04/25/14) GAIT TRAINING THERAPY (01/11/17) GLUCOSE BLOOD TEST (01/11/17) HYDRATE IV INFUSION ADD-ON (07/05/17) HYDRATION IV INFUSION INIT (07/05/17) MANUAL THERAPY 1/> REGIONS (01/11/17) MEASURE BLOOD OXYGEN LEVEL (01/11/17) MEASURE BLOOD OXYGEN LEVEL (01/11/17) METABOLIC PANEL TOTAL CA (01/11/17) MOTION FLUOROSCOPY/SWALLOW (01/11/17) MR-STAPH DNA AMP PROBE (01/11/17) MRI BRAIN STEM W/O DYE (01/11/17) OCCULT BLD FECES 1-3 TESTS (01/11/17) ORAL FUNCTION THERAPY (01/11/17) OT EVAL HIGH COMPLEX 60 MIN (01/11/17) PROTHROMBIN TIME (07/05/17) PT EVAL HIGH COMPLEX 45 MIN (01/11/17) PT EVAL MOD COMPLEX 30 MIN (01/11/17) ROUTINE VENIPUNCTURE (07/05/17) SELF CARE MNGMENT TRAINING (01/11/17) THERAPEUTIC ACTIVITIES (01/11/17) THERAPEUTIC EXERCISES (01/11/17) THROMBOPLASTIN TIME PARTIAL (01/11/17) TTE W/DOPPLER COMPLETE (01/11/17) URINALYSIS AUTO W/SCOPE (07/05/17) URINE CULTURE/COLONY COUNT (12/31/16) US URINE CAPACITY MEASURE (01/11/17) VITAMIN D 25 HYDROXY (01/11/17) X-RAY EXAM CHEST 1 VIEW (07/05/17) X-RAY EXAM OF SHOULDER (01/11/17) Problem List Initiated/Reviewed/Updated: Yes My Orders Last 24 Hours: My Active Orders 08/22/17 03:21 Schedule Procedure [COMM] Routine Plan: A: displaced right femoral neck fracture P: At this time i discussed with the daughter that for both pain control and ability to ambulate we would need to do an endoprosthesis versus a total hip arthroplasty. At this time we discussed the risks, benefits, complications, and alternatives with the family. They agreed to proceed at this time. The patient is on Eliquis so that will be stopped and we will wait until Tuesday to do the procedure. The patient will be admitted to the hospitalist service at this time with us consulting.
[2017-08-22] MEDS ORDERED: Bupivacaine 0.25%/EPINEPHrine 1:200,000 30 ML SDV ONE (12:26)
[2017-08-22] MEDS ORDERED: Midazolam 1 MG/ML 2 ML SDV ONE (12:28)
[2017-08-22] MEDS ORDERED: ceFAZolin 1 GM Vial ONE ×2 (12:28→12:30)
[2017-08-22] MEDS ORDERED: Lidocaine 1% 2 ML ONE ×2 (12:28)
[2017-08-22] MEDS ORDERED: Propofol 200 MG/20 ML SDV ONE (12:28)
[2017-08-22] MEDS ORDERED: Bupivacaine 0.75% 30 ML SDV ONE (12:28)
[2017-08-22] MEDS ORDERED: Vancomycin 1 GM SDV ONE (12:30)
[2017-08-22] MEDS ORDERED: Iodine/Sodium Iodide 2% Tincture 30 ML Bottle ONE (12:30)
[2017-08-22] MEDS ORDERED: Bupivacaine 0.25% 30 ML SDV ONE (12:31)
--- NOTE | 2017-08-22 13:17 | PCM.PN ---
- General Info Date of Service: 08/22/17 Admission Dx/Problem (Free Text): Admission Diagnosis/Problem Admission Diagnosis/Problem Hip fracture requiring operative repair Subjective Update: In to see Estelle today. She is lying in bed. Overall she is doing OK. She is extremely confused and is not able to follow commands at this time. Pain seems to be controlled, but it is difficult to assess due to her severe dementia. She has been sleeping well. She hasn't been eating as she was NPO for surgery and was having N/V with clear liquids and has been refusing her medications- treating via IV. Duron catheter in place. No fever, chills, nausea, vomiting, diarrhea, CP, or SOB. Incentive Spirometry. No concerns from nursing. Will be DC d back to [facility] pending clinical disposition and PT/OT consults. Functional Status: Reports: Pain Controlled, Tolerating Diet (difficulty eating) , Ambulating, Urinating - Review of Systems Neurological: Reports: Confusion (AMS; baseline now per son) Psychiatric: Reports: Confusion (AMS; baseline now per son) Systems Review Comment:: Unable to attain due to AMS - Patient Data Vitals - Most Recent: Last Vital Signs Temp 98.9 F 08/22/17 12:00 Pulse 128 H 08/22/17 12:41 Resp 20 08/22/17 12:00 BP 155/87 H 08/22/17 12:41 Pulse Ox 96 08/22/17 12:00 Weight - Most Recent: 131 lb 1 oz I&O - Last 24 Hours: Intake & Output 08/21/17 08/22/17 08/22/17 22:59 06:59 14:59 Intake Total 642 260 Output Total 700 150 Balance -58 110 Lab Results Last 24 Hours: Laboratory Results - last 24 hr 08/22/17 08/22/17 08/22/17 Range/Units 06:30 06:30 06:30 WBC 9.87 (3.98-10.04) K/mm3 RBC 3.45 L (3.98-5.22) M/mm3 Hgb 10.4 L (11.2-15.7) gm/L Hct 33.8 L (34.1-44.9) % MCV 98.0 H (79.4-94.8) fl MCH 30.1 (25.6-32.2) pg MCHC 30.8 L (32.2-35.5) g/dl RDW Std Deviation 59.4 H (36.4-46.3) fL Plt Count 117 L (182-369) K/mm3 MPV 11.7 (9.4-12.3) fl Neut % (Auto) 66.1 (34.0-71.1) % Lymph % (Auto) 13.6 L (19.3-51.7) % [place] % (Auto) 13.9 H (4.7-12.5) % Eos % (Auto) 5.4 (0.7-5.8) Baso % (Auto) 0.5 (0.1-1.2) % Neut # (Auto) 6.53 H (1.56-6.13) K/mm3 Lymph # (Auto) 1.34 (1.18-3.74) K/mm3 [place] # (Auto) 1.37 H (0.24-0.36) K/mm3 Eos # (Auto) 0.53 H (0.04-0.36) K/mm3 Baso # (Auto) 0.05 (0.01-0.08) K/mm3 Manual Slide Review Abnormal smear PT (9.5-12.1) SECONDS INR Sodium 148 H (136-145) mEq/L Potassium 4.5 (3.5-5.1) mEq/L Chloride 116 H (98-107) mEq/L Carbon Dioxide 24 (21-32) mEq/L Anion Gap 12.5 (5-15) BUN 37 H (7-18) mg/dL Creatinine 1.2 H (0.55-1.02) mg/dL Est Cr Clr Drug Dosing 27.32 mL/min Estimated GFR (MDRD) 42 (>60) mL/min BUN/Creatinine Ratio 30.8 H (14-18) Glucose 85 (83-115) mg/dL Calcium 9.2 (8.5-10.1) mg/dL Magnesium 2.0 (1.8-2.4) mg/dl C-Reactive Protein 21.1 H* (<1.0) mg/dL Blood Type Gel Antibody Screen 08/22/17 08/22/17 Range/Units 06:30 06:30 WBC (3.98-10.04) K/mm3 RBC (3.98-5.22) M/mm3 Hgb (11.2-15.7) gm/L Hct (34.1-44.9) % MCV (79.4-94.8) fl MCH (25.6-32.2) pg MCHC (32.2-35.5) g/dl RDW Std Deviation (36.4-46.3) fL Plt Count (182-369) K/mm3 MPV (9.4-12.3) fl Neut % (Auto) (34.0-71.1) % Lymph % (Auto) (19.3-51.7) % [place] % (Auto) (4.7-12.5) % Eos % (Auto) (0.7-5.8) Baso % (Auto) (0.1-1.2) % Neut # (Auto) (1.56-6.13) K/mm3 Lymph # (Auto) (1.18-3.74) K/mm3 [place] # (Auto) (0.24-0.36) K/mm3 Eos # (Auto) (0.04-0.36) K/mm3 Baso # (Auto) (0.01-0.08) K/mm3 Manual Slide Review PT 11.4 (9.5-12.1) SECONDS INR 1.05 Sodium (136-145) mEq/L Potassium (3.5-5.1) mEq/L Chloride (98-107) mEq/L Carbon Dioxide (21-32) mEq/L Anion Gap (5-15) BUN (7-18) mg/dL Creatinine (0.55-1.02) mg/dL Est Cr Clr Drug Dosing mL/min Estimated GFR (MDRD) (>60) mL/min BUN/Creatinine Ratio (14-18) Glucose (83-115) mg/dL Calcium (8.5-10.1) mg/dL Magnesium (1.8-2.4) mg/dl C-Reactive Protein (<1.0) mg/dL Blood Type A POSITIVE Gel Antibody Screen Negative Med Orders - Current: Current Medications Acetaminophen (Tylenol) 650 mg PO Q4H PRN PRN Reason: Pain (Mild 1-3)/fever Artificial Tears (Isopto Tears 0.5% Ophth Soln) 0 ml EYEBOTH BID MICHELLE Last Admin: 08/22/17 09:36 Dose: 1 drop Bisacodyl (Dulcolax) 5 mg PO DAILY PRN PRN Reason: Constipation Carbamazepine (Tegretol Tab) 200 mg PO BID [facility] Last Admin: 08/22/17 09:31 Dose: 200 mg Cholecalciferol (Vitamin D3) 2,000 units PO DAILY [facility] Last Admin: 08/22/17 09:37 Dose: Not Given Morphine Sulfate 8 mg/Epinephrine HCl 0.3 mg/Cefuroxime Sodium 750 mg/Ketorolac Tromethamine 30 mg/Sodium Chloride 27.9 ml 0 mg .XX ONETIME ONE Stop: 08/22/17 15:01 Diltiazem HCl (Cardizem Cd) 120 mg PO DAILY [facility] Last Admin: 08/22/17 09:31 Dose: 120 mg Docusate Sodium (Colace) 100 mg PO BID PRN PRN Reason: Constipation Famotidine (Pepcid) 20 mg PO DAILY [facility] Last Admin: 08/22/17 09:31 Dose: 20 mg Fentanyl (Duragesic) 12 mcg TRDERM Q72H [facility] Last Admin: 08/20/17 12:56 Dose: 12 mcg Hydralazine HCl (Apresoline) 20 mg IVPUSH Q6H PRN PRN Reason: Hypertension Hydromorphone HCl (Dilaudid) 1 mg IVPUSH Q6H PRN PRN Reason: Pain Last Admin: 08/22/17 05:36 Dose: 1 mg Promethazine HCl 6.25 mg/ (Sodium Chloride) 50.25 mls @ 100 mls/hr IV Q6H PRN PRN Reason: Nausea/Vomiting Sodium Chloride (Sodium Chloride 0.45%) 1,000 mls @ 75 mls/hr IV ASDIRECTED [facility] Last Admin: 08/22/17 06:26 Dose: 75 mls/hr Cefazolin Sodium/Dextrose 2 gm (/ Premix) 50 mls @ 100 mls/hr IV Q8H [facility] Stop: 08/22/17 23:59 Levothyroxine Sodium (Synthroid) 88 mcg PO DAILY [facility] Last Admin: 08/22/17 09:31 Dose: 88 mcg Lorazepam (Ativan) 0.5 mg IVPUSH Q8H PRN PRN Reason: Anxiety Last Admin: 08/22/17 00:25 Dose: 0.5 mg Magnesium Hydroxide (Milk Of Magnesia) 30 ml PO Q12H PRN PRN Reason: Constipation Metoprolol Tartrate (Lopressor) 5 mg IVPUSH Q4H [facility] Last Admin: 08/22/17 12:41 Dose: 5 mg Metoprolol Tartrate (Lopressor) 50 mg PO TID [facility] Last Admin: 08/22/17 09:29 Dose: 50 mg Miscellaneous Information (Remove Patch) 1 ea TRDERM Q72H [facility] Naloxone HCl (Narcan) 0.1 mg IVPUSH Q5M PRN PRN Reason: Oversedation Restasis Ophth Soln (Own Med) 0 drop EYEBOTH BID [facility] Last Admin: 08/22/17 09:36 Dose: 1 drop Ondansetron HCl (Zofran) 4 mg IVPUSH Q8H PRN PRN Reason: Nausea/Vomiting Last Admin: 08/20/17 12:21 Dose: 4 mg Oxycodone/Acetaminophen (Percocet 325-5 Mg) 0.5 tab PO Q4H PRN PRN Reason: Pain (moderate 4-6) Last Admin: 08/19/17 18:01 Dose: 0.5 tab Polyethylene Glycol (Miralax) 17 gm PO DAILY PRN PRN Reason: Constipation Promethazine HCl (Phenergan) 25 mg PO Q6H PRN PRN Reason: Nausea/Vomiting Quetiapine Fumarate (Seroquel) 50 mg PO BEDTIME [facility] Last Admin: 08/21/17 21:23 Dose: 50 mg Senna/Docusate Sodium (Senna Plus) 1 tab PO BID PRN PRN Reason: Constipation Simvastatin (Zocor) 20 mg PO BEDTIME [facility] Last Admin: 08/21/17 21:22 Dose: 20 mg Sodium Chloride (Saline Flush) 10 ml FLUSH ASDIRECTED PRN PRN Reason: Keep Vein Open Temazepam (Restoril) 7.5 mg PO BEDTIME PRN PRN Reason: Sleep Discontinued Medications Bupivacaine HCl (Sensorcaine-Mpf 0.75%) Confirm Administered Dose 30 ml .ROUTE .STK-MED ONE Stop: 08/22/17 12:29 Bupivacaine HCl (Marcaine 0.25%) Confirm Administered Dose 30 ml .ROUTE .STK- MED ONE Stop: 08/22/17 12:32 Bupivacaine HCl/Epinephrine Bitart (Marcaine 0.25%/Epinephrine 1:200,000) Confirm Administered Dose 30 ml .ROUTE .STK-MED ONE Stop: 08/22/17 12:27 Cefazolin Sodium (Ancef) Confirm Administered Dose 2 gm .ROUTE .STK-MED ONE Stop: 08/22/17 12:29 Cefazolin Sodium (Ancef) Confirm Administered Dose 2 gm .ROUTE .STK-MED ONE Stop: 08/22/17 12:31 Famotidine (Pepcid) 20 mg IVPUSH BID MICHELLE Famotidine (Pepcid) 20 mg PO BID MICHELLE Last Admin: 08/19/17 22:33 Dose: Not Given Furosemide (Lasix) 20 mg PO ACDINNER MICHELLE Haloperidol Lactate (Haldol) 1 mg IVPUSH ONETIME ONE Stop: 08/20/17 02:08 Last Admin: 08/20/17 02:48 Dose: 1 mg Hydralazine HCl (Apresoline) 10 mg IVPUSH Q4H PRN PRN Reason: Hypertension Hydralazine HCl (Apresoline) 10 mg IVPUSH Q8H PRN PRN Reason: Hypertension Hydralazine HCl (Apresoline) 20 mg IVPUSH Q8H PRN PRN Reason: Hypertension Hydromorphone HCl (Dilaudid) 0.25 mg IVPUSH ONETIME ONE Stop: 08/19/17 10:10 Last Admin: 08/19/17 10:13 Dose: 0.25 mg Hydromorphone HCl (Dilaudid) 0.25 mg IVPUSH ONETIME ONE Stop: 08/19/17 13:20 Last Admin: 08/19/17 13:24 Dose: 0.25 mg Hydromorphone HCl (Dilaudid) 0.25 mg IVPUSH Q2H PRN PRN Reason: Pain (severe 7-10) Last Admin: 08/20/17 01:45 Dose: 0.25 mg Hydromorphone HCl (Dilaudid) 0.5 mg IVPUSH ONETIME ONE Stop: 08/20/17 12:31 Last Admin: 08/20/17 14:52 Dose: Not Given Hydromorphone HCl (Dilaudid) Confirm Administered Dose 1 mg .ROUTE .STK-MED ONE Stop: 08/20/17 12:49 Last Admin: 08/20/17 12:57 Dose: 1 mg Sodium Chloride (Normal Saline) 1,000 mls @ 150 mls/hr IV ASDIRECTED [facility] Last Admin: 08/19/17 11:20 Dose: 150 mls/hr Ceftriaxone Sodium 2 gm/ (Sodium Chloride) 100 mls @ 100 mls/hr IV Q24H MICHELLE Stop: 08/21/17 18:01 Last Admin: 08/21/17 18:22 Dose: 100 mls/hr Diltiazem HCl 125 mg/ Sodium (Chloride) 125 mls @ 10 mls/hr IV TITRATE MICHELLE; Protocol Last Admin: 08/20/17 07:39 Dose: 5 mg/hr, 5 mls/hr Sodium Chloride (Normal Saline) 250 mls @ 999 mls/hr IV ONETIME ONE Stop: 08/20/17 02:30 Last Admin: 08/20/17 02:32 Dose: 999 mls/hr Sodium Chloride (Normal Saline) 1,000 mls @ 75 mls/hr IV ASDIRECTED [facility] Stop: 08/20/17 09:00 Last Admin: 08/20/17 03:00 Dose: 75 mls/hr Sodium Chloride (Normal Saline) Confirm Administered Dose 1,000 mls @ as directed .ROUTE .ST-MED ONE Stop: 08/20/17 02:24 Last Admin: 08/20/17 02:50 Dose: Not Given Dextrose/Sodium Chloride (Dextrose 5%-Normal Saline) 1,000 mls @ 100 mls/hr IV ASDIRECTED [facility] Last Admin: 08/20/17 12:39 Dose: 100 mls/hr Dextrose/Sodium Chloride (Dextrose 5%-Normal Saline) 1,000 mls @ 50 mls/hr IV ASDIRECTED [facility] Last Admin: 08/20/17 21:30 Dose: 50 mls/hr Lidocaine HCl (Xylocaine-Mpf 1%) Confirm Administered Dose 2 mls @ as directed .ROUTE .STK-MED ONE Stop: 08/22/17 12:29 Lidocaine HCl (Xylocaine-Mpf 1%) Confirm Administered Dose 2 mls @ as directed .ROUTE .STK-MED ONE Stop: 08/22/17 12:29 Iodine (Iodine 2% Mild Tincture) Confirm Administered Dose 30 ml .ROUTE .STK- MED ONE Stop: 08/22/17 12:31 Lisinopril (Prinivil) 5 mg PO DAILY [facility] Last Admin: 08/20/17 08:56 Dose: Not Given Metoprolol Tartrate (Lopressor) 50 mg PO BID [facility] Last Admin: 08/21/17 09:05 Dose: Not Given Metoprolol Tartrate (Lopressor) 5 mg IVPUSH Q6H PRN PRN Reason: Tachycardia Last Admin: 08/20/17 08:13 Dose: 5 mg Midazolam HCl (Versed 1 Mg/Ml) Confirm Administered Dose 2 mg .ROUTE .STK-MED ONE Stop: 08/22/17 12:29 Propofol (Diprivan 20 Ml) Confirm Administered Dose 600 mg .ROUTE .STK-MED ONE Stop: 08/22/17 12:29 Sodium Chloride (Saline Flush) 10 ml FLUSH ASDIRECTED PRN PRN Reason: Keep Vein Open Last Admin: 08/19/17 10:14 Dose: 10 ml Tranexamic Acid (Cyklokapron) Confirm Administered Dose 1,000 mg .ROUTE .STK- MED ONE Stop: 08/22/17 12:31 Vancomycin HCl (Vancomycin) Confirm Administered Dose 1 gm .ROUTE .STK-MED ONE Stop: 08/22/17 12:31 - Exam Quality Assessment: Supplemental Oxygen (2L nasal cannula), DVT Prophylaxis General: Alert, No Acute Distress. No: Oriented (Not oriented to person, place or time) HEENT: Pupils Equal, Pupils Reactive, EOMI, Mucous Membr. Moist/[place] Neck: Supple Lungs: Clear to Auscultation, Normal Respiratory Effort Cardiovascular: Regular Rate, Irregular Rhythm GI/Abdominal Exam: Normal Bowel Sounds, Soft, Non-Tender, No Organomegaly, No Distention, No Abnormal Bruit, No Mass, Pelvis Stable (Female) Exam: Deferred Back Exam: Normal Inspection, Decreased Range of Motion Extremities: Normal Inspection, Normal Range of Motion, Non-Tender, No Pedal Edema, Normal Capillary Refill Peripheral Pulses: 1+: Posterior Tibial (L), Posterior Tibial (R), Dorsalis Pedis (L), Dorsalis Pedis (R) Skin: Warm, Dry, Intact Neurological: No New Focal Deficit, Cranial Nerves Intact (grossly) Psy/Mental Status: Alert, Other (Confused, not oriented, h/o dementia) - Problem List & Annotations (1) Fracture of neck of femur, hip SNOMED Code(s): 3974981 Code(s): S72.009A - FRACTURE OF UNSP PART OF NECK OF UNSP FEMUR, INIT Status: Acute Priority: High Current Visit: Yes (2) A-fib SNOMED Code(s): 05817370 Code(s): I48.91 - UNSPECIFIED ATRIAL FIBRILLATION Status: Chronic Priority: High Current Visit: Yes Qualifiers: Atrial fibrillation type: unspecified Qualified Code(s): I48.91 - Unspecified atrial fibrillation (3) Altered mental status SNOMED Code(s): 349494031 Code(s): R41.82 - ALTERED MENTAL STATUS, UNSPECIFIED Status: Acute Priority: High Current Visit: Yes Qualifiers: Altered mental status type: disorientation Qualified Code(s): R41.0 - Disorientation, unspecified (4) Severe dementia SNOMED Code(s): 91215321 Code(s): F03.90 - UNSPECIFIED DEMENTIA WITHOUT BEHAVIORAL DISTURBANCE Status: Chronic Priority: Medium Current Visit: Yes (5) Fall SNOMED Code(s): 2433496, 616271388 Code(s): W19.XXXA - UNSPECIFIED FALL, INITIAL ENCOUNTER Status: Acute Priority: High Current Visit: Yes Qualifiers: Encounter type: initial encounter Qualified Code(s): W19.XXXA - Unspecified fall, initial encounter (6) UTI (urinary tract infection) SNOMED Code(s): 17822477 Code(s): N39.0 - URINARY TRACT INFECTION, SITE NOT SPECIFIED Status: Acute Priority: High Current Visit: Yes Qualifiers: Urinary tract infection type: site unspecified Hematuria presence: without hematuria Qualified Code(s): N39.0 - Urinary tract infection, site not specified - Problem List Review Problem List Initiated/Reviewed/Updated: Yes - My Orders Last 24 Hours: My Active Orders 08/23/17 05:11 BASIC METABOLIC PANEL,BMP [CHEM] AM C-REACTIVE PROTEIN [CHEM] AM CBC WITH AUTO DIFF [HEME] AM 08/24/17 05:11 BASIC METABOLIC PANEL,BMP [CHEM] AM C-REACTIVE PROTEIN [CHEM] AM CBC WITH AUTO DIFF [HEME] AM - Plan Plan:: I/P: Acute: Right Femoral Neck Fx -Risk Factors: Dementia/Confusion, Difficulty ambulating, Osteoporosis/ Osteoarthritis -S/p unwitnessed fall at [facility] last evening; limited history 2/2 dementia -Hip Xray in ED--> Right Femoral Head Fx -Consult orthopedic surgeon Dr. Iglesias --> Will do surgery on Tuesday -Hold Eliquis until after surgery -Pain management PRN -May need a walker to prevent future falls, consult PT/OT UTI -U/A ordered in ED--> felton sensitive UTI -Low grade fever of 99.6 -Unable to get ROS due to dementia -Urinary catheter inserted in ED 2/2 fracture -Rocephin x48 hours-->start Keflex after 48 hours Chronic: Dementia Osteoporosis/Osteoarthritis--> Pain management per primary care team GERD Hypothyroid Anxiety Hemorrhagic CVA Afib/Aflutter on Eliquis--> HOLD ELIQUIS NOW UNTIL AFTER SURGERY HLD CHF HTN MVR Trigeminal neuralgia Plan: DVT prophylaxis R hip fracture repair--08/22/17 Other orders as indicated above Continue home medications as directed Routine AM labs NDD3 diet; Boost 90mL 6x per day ([facility]'s regimen) DVT Prophylaxis: SCD, NICO hose GI Prophylaxis: Pepcid PT/OT for discharge planning SW/CM consult for discharge planning Recommend SNF/Rehab for reconditioning Code Status: DNR/DNI; PCP: Dr. Chand From [facility]
[2017-08-22] MEDS ORDERED: Morphine PF 10 MG/10 ML SDV ONE (14:01)
[2017-08-22] MEDS ORDERED: Esmolol 100 MG/10 ML SDV ONE (14:33)
[2017-08-22] MEDS ORDERED: Phenylephrine/Normal Saline 100 MCG/ML 10 ML Syringe ONE (14:59)
[2017-08-22] MEDS ORDERED: Lactated Ringers 1,000 ML ONE (15:53)
[2017-08-22] MEDS: Morphine 8 MG, EPINEPHrine 0.3 MG, Cefuroxime 750 MG, Ketorolac 30 MG, Sodium Chloride ... ONE ×5 (15:59)
[2017-08-22] MEDS ORDERED: Ondansetron 4 MG/2 ML SDV IVPUSH PRN (16:48)
[2017-08-22] MEDS ORDERED: diphenhydrAMINE 50 MG/ML SDV IVPUSH PRN (16:48)
--- NOTE | 2017-08-22 16:51 | PCM.POSTAN ---
POST ANESTHESIA ASSESSMENT - MENTAL STATUS Mental Status: Confused, Other (drowsy, baseline confusion with dementia ) - VITAL SIGNS Pulse Rate: 17 SaO2: 100 Resp Rate: 17 Blood Pressure: 120/76 Temperature: 36.6 C - RESPIRATORY Respiratory Status: Respiratory Rate WNL, Airway Patent, O2 Saturation Stable - CARDIOVASCULAR CV Status: Pulse Rate WNL, Blood Pressure Stable - GASTROINTESTINAL GI Status: No Symptoms - PAIN Pain Score: 0 - POST OP HYDRATION Hydration Status: Adequate & Stable
--- NOTE | 2017-08-22 17:14 | CR ---
Pelvis and right hip: AP view of the pelvis was obtained as well as lateral view of the right hip. Comparison: Prior pelvis and right hip study of 08/19/17. Right hip prosthesis is seen. Components are aligned. Intramedullary ruddy is seen within the left femur. Moderate joint space narrowing is seen within the left hip. Scoliosis and degenerative change is partially visualized within the lumbar spine. Extensive vascular calcification is noted within the aorta. Inferior vena cava filter is seen. Soft tissue air is noted around the right hip prosthesis. Impression: 1. Newly placed right hip prosthesis which appears unremarkable. 2. Other incidental findings which are stable. Diagnostic code #2
[2017-08-22] MEDS: ceFAZolin 2 GM in Premix Bag 1 BAG IV SCH (22:26)
[2017-08-23] MEDS: Simvastatin 20 MG Tab PO SCH (00:49)
[2017-08-23] MEDS: QUEtiapine 25 MG Tab PO SCH (00:49)
[2017-08-23] MEDS: CARBAMAZEPINE 200 MG PO SCH ×2 (00:49→09:03)
[2017-08-23] MEDS: Metoprolol Tartrate 50 MG Tab PO SCH ×2 (00:50→09:02)
[2017-08-23] MEDS: Hypromellose 0.5% Ophth Soln 15 ML Bottle EYEBOTH SCH ×3 (00:50→20:12)
[2017-08-23] MEDS: RESTASIS EYEBOTH SCH ×2 (00:50→09:00)
[2017-08-23] MEDS: Sodium Chloride 0.45% 1,000 ML IV SCH ×2 (00:52→16:46)
[2017-08-23] MEDS: Metoprolol Tartrate 5 MG/5 ML SDV IVPUSH SCH ×3 (00:53→08:58)
[2017-08-23] MEDS: HYDROmorphone 0.5 MG/0.5 ML SYRINGE IVPUSH PRN (01:57)
[2017-08-23] MEDS: ceFAZolin 2 GM in Premix Bag 1 BAG IV SCH ×2 (04:52→12:49)
[2017-08-23] MEDS: Morphine 8 MG, EPINEPHrine 0.3 MG, Cefuroxime 750 MG, Ketorolac 30 MG, Sodium Chloride ... ONE ×5 (08:04)
--- NOTE | 2017-08-23 08:51 | PCM.SURGPN ---
- General Info Date of Service: 08/23/17 POD#: 1 Functional Status: Reports: Other (The pt was resting comfortably.) - Patient Data Vitals - Most Recent: Last Vital Signs Temp 98.5 F 08/22/17 23:53 Pulse 120 H 08/23/17 04:49 Resp 16 08/23/17 07:00 BP 151/99 H 08/23/17 04:49 Pulse Ox 95 08/23/17 07:00 Weight - Most Recent: 133 lb 8 oz I&O - Last 24 Hours: Intake & Output 08/22/17 08/23/17 08/23/17 22:59 06:59 14:59 Intake Total 811 925 Output Total 150 Balance 811 775 Lab Results Last 24 Hrs: Laboratory Results - last 24 hr 08/23/17 08/23/17 08/23/17 Range/Units 06:40 06:40 06:40 WBC 10.69 H (3.98-10.04) K/mm3 RBC 3.72 L (3.98-5.22) M/mm3 Hgb 11.2 (11.2-15.7) gm/L Hct 36.7 (34.1-44.9) % MCV 98.7 H (79.4-94.8) fl MCH 30.1 (25.6-32.2) pg MCHC 30.5 L (32.2-35.5) g/dl RDW Std Deviation 57.9 H (36.4-46.3) fL Plt Count 147 L (182-369) K/mm3 MPV 11.2 (9.4-12.3) fl Neut % (Auto) 65.9 (34.0-71.1) % Lymph % (Auto) 13.2 L (19.3-51.7) % [place] % (Auto) 15.8 H (4.7-12.5) % Eos % (Auto) 3.8 (0.7-5.8) Baso % (Auto) 0.7 (0.1-1.2) % Neut # (Auto) 7.04 H (1.56-6.13) K/mm3 Lymph # (Auto) 1.41 (1.18-3.74) K/mm3 [place] # (Auto) 1.69 H (0.24-0.36) K/mm3 Eos # (Auto) 0.41 H (0.04-0.36) K/mm3 Baso # (Auto) 0.08 (0.01-0.08) K/mm3 Manual Slide Review Abnormal smear Sodium 146 H (136-145) mEq/L Potassium 4.9 (3.5-5.1) mEq/L Chloride 114 H (98-107) mEq/L Carbon Dioxide 22 (21-32) mEq/L Anion Gap 14.9 (5-15) BUN 46 H (7-18) mg/dL Creatinine 1.4 H (0.55-1.02) mg/dL Est Cr Clr Drug Dosing 23.42 mL/min Estimated GFR (MDRD) 36 (>60) mL/min BUN/Creatinine Ratio 32.9 H (14-18) Glucose 93 (83-115) mg/dL Calcium 9.3 (8.5-10.1) mg/dL Magnesium 2.2 (1.8-2.4) mg/dl C-Reactive Protein 20.3 H* (<1.0) mg/dL Med Orders - Current: Current Medications Acetaminophen (Tylenol) 650 mg PO Q4H PRN PRN Reason: Pain (Mild 1-3)/fever Apixaban (Eliquis) 2.5 mg PO BID [facility] Artificial Tears (Isopto Tears 0.5% Ophth Soln) 0 ml EYEBOTH BID [facility] Last Admin: 08/23/17 00:50 Dose: Not Given Bisacodyl (Dulcolax) 5 mg PO DAILY PRN PRN Reason: Constipation Carbamazepine (Tegretol Tab) 200 mg PO BID [facility] Last Admin: 08/23/17 00:49 Dose: Not Given Cholecalciferol (Vitamin D3) 2,000 units PO DAILY [facility] Last Admin: 08/22/17 09:37 Dose: Not Given Diltiazem HCl (Cardizem Cd) 120 mg PO DAILY [facility] Last Admin: 08/22/17 09:31 Dose: 120 mg Diphenhydramine HCl (Benadryl) 12.5 mg IVPUSH Q6H PRN PRN Reason: pruritis Docusate Sodium (Colace) 100 mg PO BID PRN PRN Reason: Constipation Famotidine (Pepcid) 20 mg PO DAILY [facility] Last Admin: 08/22/17 09:31 Dose: 20 mg Fentanyl (Duragesic) 12 mcg TRDERM Q72H [facility] Last Admin: 08/20/17 12:56 Dose: 12 mcg Hydralazine HCl (Apresoline) 20 mg IVPUSH Q6H PRN PRN Reason: Hypertension Hydromorphone HCl (Dilaudid) 1 mg IVPUSH Q6H PRN PRN Reason: Pain Last Admin: 08/23/17 01:57 Dose: 1 mg Promethazine HCl 6.25 mg/ (Sodium Chloride) 50.25 mls @ 100 mls/hr IV Q6H PRN PRN Reason: Nausea/Vomiting Sodium Chloride (Sodium Chloride 0.45%) 1,000 mls @ 75 mls/hr IV ASDIRECTED [facility] Last Admin: 08/23/17 00:52 Dose: 75 mls/hr Cefazolin Sodium/Dextrose 2 gm (/ Premix) 50 mls @ 100 mls/hr IV Q8H [facility] Stop: 08/23/17 12:59 Last Admin: 08/23/17 04:52 Dose: 100 mls/hr Levothyroxine Sodium (Synthroid) 88 mcg PO DAILY [facility] Last Admin: 08/22/17 09:31 Dose: 88 mcg Lorazepam (Ativan) 0.5 mg IVPUSH Q8H PRN PRN Reason: Anxiety Last Admin: 08/22/17 21:57 Dose: 0.5 mg Magnesium Hydroxide (Milk Of Magnesia) 30 ml PO Q12H PRN PRN Reason: Constipation Metoprolol Tartrate (Lopressor) 5 mg IVPUSH Q4H [facility] Last Admin: 08/23/17 04:49 Dose: 5 mg Metoprolol Tartrate (Lopressor) 50 mg PO TID [facility] Last Admin: 08/23/17 00:50 Dose: Not Given Miscellaneous Information (Remove Patch) 1 ea TRDERM Q72H [facility] Naloxone HCl (Narcan) 0.1 mg IVPUSH Q5M PRN PRN Reason: Oversedation Restasis Ophth Soln (Own Med) 0 drop EYEBOTH BID [facility] Last Admin: 08/23/17 00:50 Dose: Not Given Ondansetron HCl (Zofran) 4 mg IVPUSH Q8H PRN PRN Reason: Nausea/Vomiting Last Admin: 08/20/17 12:21 Dose: 4 mg Oxycodone/Acetaminophen (Percocet 325-5 Mg) 0.5 tab PO Q4H PRN PRN Reason: Pain (moderate 4-6) Last Admin: 08/19/17 18:01 Dose: 0.5 tab Polyethylene Glycol (Miralax) 17 gm PO DAILY PRN PRN Reason: Constipation Promethazine HCl (Phenergan) 25 mg PO Q6H PRN PRN Reason: Nausea/Vomiting Quetiapine Fumarate (Seroquel) 50 mg PO BEDTIME [facility] Last Admin: 08/23/17 00:49 Dose: Not Given Simvastatin (Zocor) 20 mg PO BEDTIME [facility] Last Admin: 08/23/17 00:49 Dose: Not Given Sodium Chloride (Saline Flush) 10 ml FLUSH ASDIRECTED PRN PRN Reason: Keep Vein Open Temazepam (Restoril) 7.5 mg PO BEDTIME PRN PRN Reason: Sleep Discontinued Medications Bupivacaine HCl (Sensorcaine-Mpf 0.75%) Confirm Administered Dose 30 ml .ROUTE .STK-MED ONE Stop: 08/22/17 12:29 Bupivacaine HCl (Marcaine 0.25%) Confirm Administered Dose 30 ml .ROUTE .STK- MED ONE Stop: 08/22/17 12:32 Last Admin: 08/22/17 16:00 Dose: 30 ml Bupivacaine HCl/Epinephrine Bitart (Marcaine 0.25%/Epinephrine 1:200,000) Confirm Administered Dose 30 ml .ROUTE .STK-MED ONE Stop: 08/22/17 12:27 Cefazolin Sodium (Ancef) Confirm Administered Dose 2 gm .ROUTE .STK-MED ONE Stop: 08/22/17 12:29 Last Admin: 08/22/17 15:55 Dose: 2 gm Cefazolin Sodium (Ancef) Confirm Administered Dose 2 gm .ROUTE .STK-MED ONE Stop: 08/22/17 12:31 Morphine Sulfate 8 mg/Epinephrine HCl 0.3 mg/Cefuroxime Sodium 750 mg/Ketorolac Tromethamine 30 mg/Sodium Chloride 27.9 ml 0 mg .XX ONETIME ONE Stop: 08/22/17 15:01 Last Admin: 08/23/17 08:04 Dose: Not Given Esmolol HCl (Esmolol) Confirm Administered Dose 200 mg .ROUTE .STK-MED ONE Stop: 08/22/17 14:34 Famotidine (Pepcid) 20 mg IVPUSH BID [facility] Famotidine (Pepcid) 20 mg PO BID [facility] Last Admin: 08/19/17 22:33 Dose: Not Given Furosemide (Lasix) 20 mg PO ACDINNER [facility] Haloperidol Lactate (Haldol) 1 mg IVPUSH ONETIME ONE Stop: 08/20/17 02:08 Last Admin: 08/20/17 02:48 Dose: 1 mg Hydralazine HCl (Apresoline) 10 mg IVPUSH Q4H PRN PRN Reason: Hypertension Hydralazine HCl (Apresoline) 10 mg IVPUSH Q8H PRN PRN Reason: Hypertension Hydralazine HCl (Apresoline) 20 mg IVPUSH Q8H PRN PRN Reason: Hypertension Hydromorphone HCl (Dilaudid) 0.25 mg IVPUSH ONETIME ONE Stop: 08/19/17 10:10 Last Admin: 08/19/17 10:13 Dose: 0.25 mg Hydromorphone HCl (Dilaudid) 0.25 mg IVPUSH ONETIME ONE Stop: 08/19/17 13:20 Last Admin: 08/19/17 13:24 Dose: 0.25 mg Hydromorphone HCl (Dilaudid) 0.25 mg IVPUSH Q2H PRN PRN Reason: Pain (severe 7-10) Last Admin: 08/20/17 01:45 Dose: 0.25 mg Hydromorphone HCl (Dilaudid) 0.5 mg IVPUSH ONETIME ONE Stop: 08/20/17 12:31 Last Admin: 08/20/17 14:52 Dose: Not Given Hydromorphone HCl (Dilaudid) Confirm Administered Dose 1 mg .ROUTE .STK-MED ONE Stop: 08/20/17 12:49 Last Admin: 08/20/17 12:57 Dose: 1 mg Sodium Chloride (Normal Saline) 1,000 mls @ 150 mls/hr IV ASDIRECTED [facility] Last Admin: 08/19/17 11:20 Dose: 150 mls/hr Ceftriaxone Sodium 2 gm/ (Sodium Chloride) 100 mls @ 100 mls/hr IV Q24H [facility] Stop: 08/21/17 18:01 Last Admin: 08/21/17 18:22 Dose: 100 mls/hr Diltiazem HCl 125 mg/ Sodium (Chloride) 125 mls @ 10 mls/hr IV TITRATE [facility]; Protocol Last Admin: 08/20/17 07:39 Dose: 5 mg/hr, 5 mls/hr Sodium Chloride (Normal Saline) 250 mls @ 999 mls/hr IV ONETIME ONE Stop: 08/20/17 02:30 Last Admin: 08/20/17 02:32 Dose: 999 mls/hr Sodium Chloride (Normal Saline) 1,000 mls @ 75 mls/hr IV ASDIRECTED [facility] Stop: 08/20/17 09:00 Last Admin: 08/20/17 03:00 Dose: 75 mls/hr Sodium Chloride (Normal Saline) Confirm Administered Dose 1,000 mls @ as directed .ROUTE .STK-MED ONE Stop: 08/20/17 02:24 Last Admin: 08/20/17 02:50 Dose: Not Given Dextrose/Sodium Chloride (Dextrose 5%-Normal Saline) 1,000 mls @ 100 mls/hr IV ASDIRECTED [facility] Last Admin: 08/20/17 12:39 Dose: 100 mls/hr Dextrose/Sodium Chloride (Dextrose 5%-Normal Saline) 1,000 mls @ 50 mls/hr IV ASDIRECTED [facility] Last Admin: 08/20/17 21:30 Dose: 50 mls/hr Lidocaine HCl (Xylocaine-Mpf 1%) Confirm Administered Dose 2 mls @ as directed .ROUTE .STK-MED ONE Stop: 08/22/17 12:29 Lidocaine HCl (Xylocaine-Mpf 1%) Confirm Administered Dose 2 mls @ as directed .ROUTE .STK-MED ONE Stop: 08/22/17 12:29 Lactated Ringer's (Ringers, Lactated) Confirm Administered Dose 1,000 mls @ as directed .ROUTE .STK-MED ONE Stop: 08/22/17 15:54 Iodine (Iodine 2% Mild Tincture) Confirm Administered Dose 30 ml .ROUTE .STK- MED ONE Stop: 08/22/17 12:31 Last Admin: 08/22/17 15:52 Dose: 18 ml Lisinopril (Prinivil) 5 mg PO DAILY [facility] Last Admin: 08/20/17 08:56 Dose: Not Given Metoprolol Tartrate (Lopressor) 50 mg PO BID [facility] Last Admin: 08/21/17 09:05 Dose: Not Given Metoprolol Tartrate (Lopressor) 5 mg IVPUSH Q6H PRN PRN Reason: Tachycardia Last Admin: 08/20/17 08:13 Dose: 5 mg Midazolam HCl (Versed 1 Mg/Ml) Confirm Administered Dose 2 mg .ROUTE .STK-MED ONE Stop: 08/22/17 12:29 Morphine Sulfate (Duramorph Pf) Confirm Administered Dose 10 mg .ROUTE .STK-MED ONE Stop: 08/22/17 14:02 Ondansetron HCl (Zofran) 4 mg IVPUSH ONETIME PRN PRN Reason: Nausea/Vomiting Phenylephrine HCl (Phenylephrine In Ns 100 Mcg/Ml) Confirm Administered Dose 1 mg .ROUTE .STK-MED ONE Stop: 08/22/17 15:00 Propofol (Diprivan 20 Ml) Confirm Administered Dose 600 mg .ROUTE .STK-MED ONE Stop: 08/22/17 12:29 Senna/Docusate Sodium (Senna Plus) 1 tab PO BID PRN PRN Reason: Constipation Sodium Chloride (Saline Flush) 10 ml FLUSH ASDIRECTED PRN PRN Reason: Keep Vein Open Last Admin: 08/19/17 10:14 Dose: 10 ml Tranexamic Acid (Cyklokapron) Confirm Administered Dose 1,000 mg .ROUTE .STK- MED ONE Stop: 08/22/17 12:31 Last Admin: 08/22/17 16:01 Dose: 1,000 mg Vancomycin HCl (Vancomycin) Confirm Administered Dose 1 gm .ROUTE .STK-MED ONE Stop: 08/22/17 12:31 Last Admin: 08/22/17 16:00 Dose: 1 gm - Exam Wound/Incisions: Dressing Dry and Intact Extremities: Other (Right thigh soft, nontender.) - Problem List Review Problem List Initiated/Reviewed/Updated: Yes - My Orders Last 24 Hours: Active Orders 24 hr Category Date Time Status Communication Order [RC] Care 08/22/17 16:48 Active Notify Provider [RC] Care 08/22/17 16:48 Active Vital Signs [RC] Q1H Care 08/22/17 16:48 Inactive National Dysphagia Diet [DIET] Diet 08/23/17 Breakfast Active BASIC METABOLIC PANEL,BMP [CHEM] AM Lab 08/24/17 05:11 Ordered C-REACTIVE PROTEIN [CHEM] AM Lab 08/24/17 05:11 Ordered CBC WITH AUTO DIFF [HEME] AM Lab 08/24/17 05:11 Ordered Apixaban [Eliquis] Med 08/23/17 09:00 Active 2.5 mg PO BID Remove Patch Med 08/23/17 12:15 Active 1 ea TRDERM Q72H ceFAZolin [Ancef] 2 gm Med 08/22/17 20:30 Active Premix Bag 1 bag IV Q8H diphenhydrAMINE [Benadryl] Med 08/22/17 16:48 Active 12.5 mg IVPUSH Q6H PRN Pulse Oximetry Continuous Monitoring [OM.PC] Routine Oth 08/22/17 16:48 Active Weight bearing status [OM.PC] Routine Oth 08/22/17 17:06 Ordered Medication Orders Acetaminophen (Tylenol) 650 mg PO Q4H PRN PRN Reason: Pain (Mild 1-3)/fever Apixaban (Eliquis) 2.5 mg PO BID [facility] Artificial Tears (Isopto Tears 0.5% Ophth Soln) 0 ml EYEBOTH BID [facility] Last Admin: 08/23/17 00:50 Dose: Not Given Admin: 08/22/17 09:36 Dose: 1 drop Admin: 08/21/17 21:21 Dose: 1 drop Admin: 08/21/17 08:46 Dose: 1 drop Admin: 08/20/17 21:31 Dose: 1 drop Admin: 08/20/17 09:48 Dose: Not Given Admin: 08/19/17 22:10 Dose: 1 drop Bisacodyl (Dulcolax) 5 mg PO DAILY PRN PRN Reason: Constipation Carbamazepine (Tegretol Tab) 200 mg PO BID [facility] Last Admin: 08/23/17 00:49 Dose: Admin: 08/22/17 09:31 Dose: 200 mg Admin: 08/21/17 21:22 Dose: 200 mg Admin: 08/21/17 09:06 Dose: Admin: 08/20/17 21:32 Dose: Not Given Admin: 08/20/17 20:03 Dose: Not Given Admin: 08/20/17 08:56 Dose: Not Given Cholecalciferol (Vitamin D3) 2,000 units PO DAILY [facility] Last Admin: 08/22/17 09:37 Dose: Not Given Admin: 08/21/17 09:06 Dose: Admin: 08/20/17 08:56 Dose: Not Given Diltiazem HCl (Cardizem Cd) 120 mg PO DAILY [facility] Last Admin: 08/22/17 09:31 Dose: 120 mg Admin: 08/21/17 09:05 Dose: Admin: 08/20/17 08:55 Dose: Not Given Diphenhydramine HCl (Benadryl) 12.5 mg IVPUSH Q6H PRN PRN Reason: pruritis Docusate Sodium (Colace) 100 mg PO BID PRN PRN Reason: Constipation Famotidine (Pepcid) 20 mg PO DAILY [facility] Last Admin: 08/22/17 09:31 Dose: 20 mg Admin: 08/21/17 09:05 Dose: Admin: 08/20/17 08:56 Dose: Not Given Fentanyl (Duragesic) 12 mcg TRDERM Q72H [facility] Last Admin: 08/20/17 12:56 Dose: 12 mcg Hydralazine HCl (Apresoline) 20 mg IVPUSH Q6H PRN PRN Reason: Hypertension Hydromorphone HCl (Dilaudid) 1 mg IVPUSH Q6H PRN PRN Reason: Pain Last Admin: 08/23/17 01:57 Dose: 1 mg Admin: 08/22/17 05:36 Dose: 1 mg Admin: 08/21/17 18:59 Dose: 1 mg Admin: 08/21/17 11:34 Dose: 1 mg Admin: 08/21/17 04:07 Dose: 1 mg Admin: 08/20/17 17:47 Dose: 1 mg Admin: 08/20/17 08:41 Dose: 1 mg Admin: 08/20/17 02:31 Dose: 1 mg Promethazine HCl 6.25 mg/ (Sodium Chloride) 50.25 mls @ 100 mls/hr IV Q6H PRN PRN Reason: Nausea/Vomiting Sodium Chloride (Sodium Chloride 0.45%) 1,000 mls @ 75 mls/hr IV ASDIRECTED [facility] Last Admin: 08/23/17 00:52 Dose: 75 mls/hr Infusion: 08/22/17 19:46 Dose: 75 mls/hr Admin: 08/22/17 06:26 Dose: 75 mls/hr Cefazolin Sodium/Dextrose 2 gm (/ Premix) 50 mls @ 100 mls/hr IV Q8H [facility] Stop: 08/23/17 12:59 Last Admin: 08/23/17 04:52 Dose: 100 mls/hr Infusion: 08/22/17 22:56 Dose: 100 mls/hr Admin: 08/22/17 22:26 Dose: 100 mls/hr Levothyroxine Sodium (Synthroid) 88 mcg PO DAILY [facility] Last Admin: 08/22/17 09:31 Dose: 88 mcg Admin: 08/21/17 09:05 Dose: Admin: 08/20/17 08:56 Dose: Not Given Lorazepam (Ativan) 0.5 mg IVPUSH Q8H PRN PRN Reason: Anxiety Last Admin: 08/22/17 21:57 Dose: 0.5 mg Admin: 08/22/17 00:25 Dose: 0.5 mg Admin: 08/21/17 15:45 Dose: 0.5 mg Admin: 08/21/17 06:44 Dose: 0.5 mg Admin: 08/20/17 18:00 Dose: 0.5 mg Magnesium Hydroxide (Milk Of Magnesia) 30 ml PO Q12H PRN PRN Reason: Constipation Metoprolol Tartrate (Lopressor) 5 mg IVPUSH Q4H [facility] Last Admin: 08/23/17 04:49 Dose: 5 mg Admin: 08/23/17 00:53 Dose: 5 mg Admin: 08/22/17 21:46 Dose: 5 mg Admin: 08/22/17 17:57 Dose: 5 mg Admin: 08/22/17 12:41 Dose: 5 mg Admin: 08/22/17 09:37 Dose: Admin: 08/22/17 05:31 Dose: 5 mg Admin: 08/22/17 00:23 Dose: 5 mg Admin: 08/21/17 21:26 Dose: 5 mg Admin: 08/21/17 15:56 Dose: 5 mg Admin: 08/21/17 11:31 Dose: 5 mg Admin: 08/21/17 08:58 Dose: 5 mg Admin: 08/21/17 04:18 Dose: 5 mg Admin: 08/21/17 01:26 Dose: 5 mg Admin: 08/20/17 21:29 Dose: 5 mg Admin: 08/20/17 17:40 Dose: 5 mg Admin: 08/20/17 12:30 Dose: 5 mg Metoprolol Tartrate (Lopressor) 50 mg PO TID [facility] Last Admin: 08/23/17 00:50 Dose: Admin: 08/22/17 18:04 Dose: Admin: 08/22/17 09:29 Dose: 50 mg Admin: 08/21/17 21:23 Dose: 50 mg Admin: 08/21/17 18:29 Dose: Not Given Miscellaneous Information (Remove Patch) 1 ea TRDERM Q72H [facility] Naloxone HCl (Narcan) 0.1 mg IVPUSH Q5M PRN PRN Reason: Oversedation Restasis Ophth Soln (Own Med) 0 drop EYEBOTH BID [facility] Last Admin: 08/23/17 00:50 Dose: Not Given Admin: 08/22/17 09:36 Dose: 1 drop Admin: 08/21/17 21:22 Dose: 1 drop Admin: 08/21/17 08:49 Dose: 1 drop Admin: 08/20/17 21:31 Dose: 1 drop Admin: 08/20/17 09:48 Dose: Not Given Admin: 08/19/17 22:07 Dose: 1 drop Ondansetron HCl (Zofran) 4 mg IVPUSH Q8H PRN PRN Reason: Nausea/Vomiting Last Admin: 08/20/17 12:21 Dose: 4 mg Oxycodone/Acetaminophen (Percocet 325-5 Mg) 0.5 tab PO Q4H PRN PRN Reason: Pain (moderate 4-6) Last Admin: 08/19/17 18:01 Dose: 0.5 tab Polyethylene Glycol (Miralax) 17 gm PO DAILY PRN PRN Reason: Constipation Promethazine HCl (Phenergan) 25 mg PO Q6H PRN PRN Reason: Nausea/Vomiting Quetiapine Fumarate (Seroquel) 50 mg PO BEDTIME [facility] Last Admin: 08/23/17 00:49 Dose: Admin: 08/21/17 21:23 Dose: 50 mg Admin: 08/20/17 21:32 Dose: Not Given Admin: 08/20/17 19:57 Dose: Not Given Simvastatin (Zocor) 20 mg PO BEDTIME [facility] Last Admin: 08/23/17 00:49 Dose: Admin: 08/21/17 21:22 Dose: 20 mg Admin: 08/20/17 21:32 Dose: Not Given Admin: 08/20/17 20:03 Dose: Not Given Sodium Chloride (Saline Flush) 10 ml FLUSH ASDIRECTED PRN PRN Reason: Keep Vein Open Temazepam (Restoril) 7.5 mg PO BEDTIME PRN PRN Reason: Sleep - Assessment Assessment (Free Text/Narrative):: POD#1 - right endoprosthesis placement - Plan Plan (Free Text/Narrative):: 1. The pt is to resume Eliquis. TEDs, SCDs. 2. Discharge to [place] when cleared by Hospitalist service. 3. Further orders per Hospitalist service. The pt's case was discussed with Dr. Iglesias.
[2017-08-23] MEDS: Diltiazem 120 MG Cap.CD PO SCH (08:59)
[2017-08-23] MEDS ORDERED: Apixaban 5 MG Tab PO SCH (09:00)
[2017-08-23] MEDS: Famotidine 20 MG Tab PO SCH (09:02)
[2017-08-23] MEDS: Cholecalciferol (Vitamin D3) 1,000 Unit Tab PO SCH (09:03)
[2017-08-23] MEDS: Levothyroxine 88 MCG Tab PO SCH (09:03)
--- NOTE | 2017-08-23 09:52 | PCM.PN ---
<Mana Sena - Last Filed: 08/23/17 14:37> - General Info Date of Service: 08/23/17 Admission Dx/Problem (Free Text): Admission Diagnosis/Problem Admission Diagnosis/Problem Hip fracture requiring operative repair Subjective Update: In to see Estelle today post-op day 1. She is lying in bed sleeping. Per nursing , she is only alert to painful stimuli- we will back off on her pain medications for now to see if she can become more lucid. Overall she is doing OK. In general, she has been extremely confused and has not able to follow commands. Pain seems to be controlled, but it is difficult to assess due to her severe dementia. She has been sleeping well. She hasn't been eating as she was NPO for surgery and was having N/V with clear liquids and has been refusing her medications- treating via IV now. Per nursing, she has been pulling out her allan catheter. Allan catheter D/C'd today. No fever, chills, nausea, vomiting, diarrhea, CP, or SOB. No other concerns from nursing. Will most likely be DCd back to [facility] tomorrow pending clinical disposition and PT consults. Went in with Case Management around 1pm to have a family meeting regarding options including comfort care/end of life measures. Per family and records, her mental and physical status has been declining for months now. They wanted to make sure she was comfortable which is why she had the hip surgery, but she is now becoming increasingly agitated and refusing to eat/take medication. With her severe dementia it may also be very difficult to have her participate/ follow commands for post surgery physical therapy rehabilitation. With these concomitant conditions, the prognosis right now is poor. After discussing this with family, WALTER has decided to go ahead with changing her code status from DNR/ DNI to comfort measures. She will be discharged back to [facility] tomorrow. Functional Status: Reports: Pain Controlled - Review of Systems Neurological: Reports: Confusion (disoriented x3) Psychiatric: Reports: Confusion (disoriented x3) Systems Review Comment:: Unable to attain due to severe dementia - Patient Data Vitals - Most Recent: Last Vital Signs Temp 98.5 F 08/22/17 23:53 Pulse 112 H 08/23/17 08:58 Resp 16 08/23/17 07:00 BP 115/74 08/23/17 08:58 Pulse Ox 95 08/23/17 07:00 Weight - Most Recent: 60.555 kg I&O - Last 24 Hours: Intake & Output 08/22/17 08/23/17 08/23/17 22:59 06:59 14:59 Intake Total 811 925 Output Total 150 Balance 811 775 Lab Results Last 24 Hours: Laboratory Results - last 24 hr 08/23/17 08/23/17 08/23/17 Range/Units 06:40 06:40 06:40 WBC 10.69 H (3.98-10.04) K/mm3 RBC 3.72 L (3.98-5.22) M/mm3 Hgb 11.2 (11.2-15.7) gm/L Hct 36.7 (34.1-44.9) % MCV 98.7 H (79.4-94.8) fl MCH 30.1 (25.6-32.2) pg MCHC 30.5 L (32.2-35.5) g/dl RDW Std Deviation 57.9 H (36.4-46.3) fL Plt Count 147 L (182-369) K/mm3 MPV 11.2 (9.4-12.3) fl Neut % (Auto) 65.9 (34.0-71.1) % Lymph % (Auto) 13.2 L (19.3-51.7) % [place] % (Auto) 15.8 H (4.7-12.5) % Eos % (Auto) 3.8 (0.7-5.8) Baso % (Auto) 0.7 (0.1-1.2) % Neut # (Auto) 7.04 H (1.56-6.13) K/mm3 Lymph # (Auto) 1.41 (1.18-3.74) K/mm3 [place] # (Auto) 1.69 H (0.24-0.36) K/mm3 Eos # (Auto) 0.41 H (0.04-0.36) K/mm3 Baso # (Auto) 0.08 (0.01-0.08) K/mm3 Manual Slide Review Abnormal smear Sodium 146 H (136-145) mEq/L Potassium 4.9 (3.5-5.1) mEq/L Chloride 114 H (98-107) mEq/L Carbon Dioxide 22 (21-32) mEq/L Anion Gap 14.9 (5-15) BUN 46 H (7-18) mg/dL Creatinine 1.4 H (0.55-1.02) mg/dL Est Cr Clr Drug Dosing 23.42 mL/min Estimated GFR (MDRD) 36 (>60) mL/min BUN/Creatinine Ratio 32.9 H (14-18) Glucose 93 (83-115) mg/dL Calcium 9.3 (8.5-10.1) mg/dL Magnesium 2.2 (1.8-2.4) mg/dl C-Reactive Protein 20.3 H* (<1.0) mg/dL Med Orders - Current: Current Medications Acetaminophen (Tylenol) 650 mg PO Q4H PRN PRN Reason: Pain (Mild 1-3)/fever Apixaban (Eliquis) 2.5 mg PO BID [facility] Last Admin: 08/23/17 09:01 Dose: Not Given Artificial Tears (Isopto Tears 0.5% Ophth Soln) 0 ml EYEBOTH BID [facility] Last Admin: 08/23/17 09:01 Dose: 1 drop Bisacodyl (Dulcolax) 5 mg PO DAILY PRN PRN Reason: Constipation Carbamazepine (Tegretol Tab) 200 mg PO BID [facility] Last Admin: 08/23/17 09:03 Dose: Not Given Cholecalciferol (Vitamin D3) 2,000 units PO DAILY [facility] Last Admin: 08/23/17 09:03 Dose: Not Given Diltiazem HCl (Cardizem Cd) 120 mg PO DAILY [facility] Last Admin: 08/23/17 08:59 Dose: Not Given Diphenhydramine HCl (Benadryl) 12.5 mg IVPUSH Q6H PRN PRN Reason: pruritis Docusate Sodium (Colace) 100 mg PO BID PRN PRN Reason: Constipation Famotidine (Pepcid) 20 mg PO DAILY [facility] Last Admin: 08/23/17 09:02 Dose: Not Given Fentanyl (Duragesic) 12 mcg TRDERM Q72H [facility] Last Admin: 08/20/17 12:56 Dose: 12 mcg Hydralazine HCl (Apresoline) 20 mg IVPUSH Q6H PRN PRN Reason: Hypertension Hydromorphone HCl (Dilaudid) 1 mg IVPUSH Q6H PRN PRN Reason: Pain Last Admin: 08/23/17 01:57 Dose: 1 mg Promethazine HCl 6.25 mg/ (Sodium Chloride) 50.25 mls @ 100 mls/hr IV Q6H PRN PRN Reason: Nausea/Vomiting Sodium Chloride (Sodium Chloride 0.45%) 1,000 mls @ 75 mls/hr IV ASDIRECTED [facility] Last Admin: 08/23/17 00:52 Dose: 75 mls/hr Cefazolin Sodium/Dextrose 2 gm (/ Premix) 50 mls @ 100 mls/hr IV Q8H [facility] Stop: 08/23/17 12:59 Last Admin: 08/23/17 04:52 Dose: 100 mls/hr Levothyroxine Sodium (Synthroid) 88 mcg PO DAILY [facility] Last Admin: 08/23/17 09:03 Dose: Not Given Lorazepam (Ativan) 0.5 mg IVPUSH Q8H PRN PRN Reason: Anxiety Last Admin: 08/22/17 21:57 Dose: 0.5 mg Magnesium Hydroxide (Milk Of Magnesia) 30 ml PO Q12H PRN PRN Reason: Constipation Metoprolol Tartrate (Lopressor) 5 mg IVPUSH Q4H [facility] Last Admin: 08/23/17 08:58 Dose: 5 mg Metoprolol Tartrate (Lopressor) 50 mg PO TID [facility] Last Admin: 08/23/17 09:02 Dose: Not Given Miscellaneous Information (Remove Patch) 1 ea TRDERM Q72H [facility] Naloxone HCl (Narcan) 0.1 mg IVPUSH Q5M PRN PRN Reason: Oversedation Restasis Ophth Soln (Own Med) 0 drop EYEBOTH BID [facility] Last Admin: 08/23/17 09:00 Dose: 1 drop Ondansetron HCl (Zofran) 4 mg IVPUSH Q8H PRN PRN Reason: Nausea/Vomiting Last Admin: 08/20/17 12:21 Dose: 4 mg Oxycodone/Acetaminophen (Percocet 325-5 Mg) 0.5 tab PO Q4H PRN PRN Reason: Pain (moderate 4-6) Last Admin: 08/19/17 18:01 Dose: 0.5 tab Polyethylene Glycol (Miralax) 17 gm PO DAILY PRN PRN Reason: Constipation Promethazine HCl (Phenergan) 25 mg PO Q6H PRN PRN Reason: Nausea/Vomiting Quetiapine Fumarate (Seroquel) 50 mg PO BEDTIME [facility] Last Admin: 08/23/17 00:49 Dose: Not Given Simvastatin (Zocor) 20 mg PO BEDTIME [facility] Last Admin: 08/23/17 00:49 Dose: Not Given Sodium Chloride (Saline Flush) 10 ml FLUSH ASDIRECTED PRN PRN Reason: Keep Vein Open Temazepam (Restoril) 7.5 mg PO BEDTIME PRN PRN Reason: Sleep Discontinued Medications Bupivacaine HCl (Sensorcaine-Mpf 0.75%) Confirm Administered Dose 30 ml .ROUTE .STK-MED ONE Stop: 08/22/17 12:29 Bupivacaine HCl (Marcaine 0.25%) Confirm Administered Dose 30 ml .ROUTE .STK- MED ONE Stop: 08/22/17 12:32 Last Admin: 08/22/17 16:00 Dose: 30 ml Bupivacaine HCl/Epinephrine Bitart (Marcaine 0.25%/Epinephrine 1:200,000) Confirm Administered Dose 30 ml .ROUTE .STK-MED ONE Stop: 08/22/17 12:27 Cefazolin Sodium (Ancef) Confirm Administered Dose 2 gm .ROUTE .STK-MED ONE Stop: 08/22/17 12:29 Last Admin: 08/22/17 15:55 Dose: 2 gm Cefazolin Sodium (Ancef) Confirm Administered Dose 2 gm .ROUTE .STK-MED ONE Stop: 08/22/17 12:31 Morphine Sulfate 8 mg/Epinephrine HCl 0.3 mg/Cefuroxime Sodium 750 mg/Ketorolac Tromethamine 30 mg/Sodium Chloride 27.9 ml 0 mg .XX ONETIME ONE Stop: 08/22/17 15:01 Last Admin: 08/23/17 08:04 Dose: Not Given Esmolol HCl (Esmolol) Confirm Administered Dose 200 mg .ROUTE .STK-MED ONE Stop: 08/22/17 14:34 Famotidine (Pepcid) 20 mg IVPUSH BID [facility] Famotidine (Pepcid) 20 mg PO BID [facility] Last Admin: 08/19/17 22:33 Dose: Not Given Furosemide (Lasix) 20 mg PO ACDINNER [facility]HELLE Haloperidol Lactate (Haldol) 1 mg IVPUSH ONETIME ONE Stop: 08/20/17 02:08 Last Admin: 08/20/17 02:48 Dose: 1 mg Hydralazine HCl (Apresoline) 10 mg IVPUSH Q4H PRN PRN Reason: Hypertension Hydralazine HCl (Apresoline) 10 mg IVPUSH Q8H PRN PRN Reason: Hypertension Hydralazine HCl (Apresoline) 20 mg IVPUSH Q8H PRN PRN Reason: Hypertension Hydromorphone HCl (Dilaudid) 0.25 mg IVPUSH ONETIME ONE Stop: 08/19/17 10:10 Last Admin: 08/19/17 10:13 Dose: 0.25 mg Hydromorphone HCl (Dilaudid) 0.25 mg IVPUSH ONETIME ONE Stop: 08/19/17 13:20 Last Admin: 08/19/17 13:24 Dose: 0.25 mg Hydromorphone HCl (Dilaudid) 0.25 mg IVPUSH Q2H PRN PRN Reason: Pain (severe 7-10) Last Admin: 08/20/17 01:45 Dose: 0.25 mg Hydromorphone HCl (Dilaudid) 0.5 mg IVPUSH ONETIME ONE Stop: 08/20/17 12:31 Last Admin: 08/20/17 14:52 Dose: Not Given Hydromorphone HCl (Dilaudid) Confirm Administered Dose 1 mg .ROUTE .STK-MED ONE Stop: 08/20/17 12:49 Last Admin: 08/20/17 12:57 Dose: 1 mg Sodium Chloride (Normal Saline) 1,000 mls @ 150 mls/hr IV ASDIRECTED [facility] Last Admin: 08/19/17 11:20 Dose: 150 mls/hr Ceftriaxone Sodium 2 gm/ (Sodium Chloride) 100 mls @ 100 mls/hr IV Q24H [facility] Stop: 08/21/17 18:01 Last Admin: 08/21/17 18:22 Dose: 100 mls/hr Diltiazem HCl 125 mg/ Sodium (Chloride) 125 mls @ 10 mls/hr IV TITRATE [facility]; Protocol Last Admin: 08/20/17 07:39 Dose: 5 mg/hr, 5 mls/hr Sodium Chloride (Normal Saline) 250 mls @ 999 mls/hr IV ONETIME ONE Stop: 08/20/17 02:30 Last Admin: 08/20/17 02:32 Dose: 999 mls/hr Sodium Chloride (Normal Saline) 1,000 mls @ 75 mls/hr IV ASDIRECTED [facility] Stop: 08/20/17 09:00 Last Admin: 08/20/17 03:00 Dose: 75 mls/hr Sodium Chloride (Normal Saline) Confirm Administered Dose 1,000 mls @ as directed .ROUTE .STK-MED ONE Stop: 08/20/17 02:24 Last Admin: 08/20/17 02:50 Dose: Not Given Dextrose/Sodium Chloride (Dextrose 5%-Normal Saline) 1,000 mls @ 100 mls/hr IV ASDIRECTED [facility] Last Admin: 08/20/17 12:39 Dose: 100 mls/hr Dextrose/Sodium Chloride (Dextrose 5%-Normal Saline) 1,000 mls @ 50 mls/hr IV ASDIRECTED [facility] Last Admin: 08/20/17 21:30 Dose: 50 mls/hr Lidocaine HCl (Xylocaine-Mpf 1%) Confirm Administered Dose 2 mls @ as directed .ROUTE .STK-MED ONE Stop: 08/22/17 12:29 Lidocaine HCl (Xylocaine-Mpf 1%) Confirm Administered Dose 2 mls @ as directed .ROUTE .STK-MED ONE Stop: 08/22/17 12:29 Lactated Ringer's (Ringers, Lactated) Confirm Administered Dose 1,000 mls @ as directed .ROUTE .STK-MED ONE Stop: 08/22/17 15:54 Iodine (Iodine 2% Mild Tincture) Confirm Administered Dose 30 ml .ROUTE .STK- MED ONE Stop: 08/22/17 12:31 Last Admin: 08/22/17 15:52 Dose: 18 ml Lisinopril (Prinivil) 5 mg PO DAILY [facility] Last Admin: 08/20/17 08:56 Dose: Not Given Metoprolol Tartrate (Lopressor) 50 mg PO BID [facility] Last Admin: 08/21/17 09:05 Dose: Not Given Metoprolol Tartrate (Lopressor) 5 mg IVPUSH Q6H PRN PRN Reason: Tachycardia Last Admin: 08/20/17 08:13 Dose: 5 mg Midazolam HCl (Versed 1 Mg/Ml) Confirm Administered Dose 2 mg .ROUTE .STK-MED ONE Stop: 08/22/17 12:29 Morphine Sulfate (Duramorph Pf) Confirm Administered Dose 10 mg .ROUTE .STK-MED ONE Stop: 08/22/17 14:02 Ondansetron HCl (Zofran) 4 mg IVPUSH ONETIME PRN PRN Reason: Nausea/Vomiting Phenylephrine HCl (Phenylephrine In Ns 100 Mcg/Ml) Confirm Administered Dose 1 mg .ROUTE .STK-MED ONE Stop: 08/22/17 15:00 Propofol (Diprivan 20 Ml) Confirm Administered Dose 600 mg .ROUTE .STK-MED ONE Stop: 08/22/17 12:29 Senna/Docusate Sodium (Senna Plus) 1 tab PO BID PRN PRN Reason: Constipation Sodium Chloride (Saline Flush) 10 ml FLUSH ASDIRECTED PRN PRN Reason: Keep Vein Open Last Admin: 08/19/17 10:14 Dose: 10 ml Tranexamic Acid (Cyklokapron) Confirm Administered Dose 1,000 mg .ROUTE .STK- MED ONE Stop: 08/22/17 12:31 Last Admin: 08/22/17 16:01 Dose: 1,000 mg Vancomycin HCl (Vancomycin) Confirm Administered Dose 1 gm .ROUTE .STK-MED ONE Stop: 08/22/17 12:31 Last Admin: 08/22/17 16:00 Dose: 1 gm - Exam Quality Assessment: Supplemental Oxygen (4L nasal cannula) General: No: Alert (Responds to pain only), Oriented Neck: Supple Lungs: Clear to Auscultation, Normal Respiratory Effort Cardiovascular: Regular Rate, Regular Rhythm GI/Abdominal Exam: Normal Bowel Sounds, Soft, Non-Tender, No Organomegaly, No Distention, No Abnormal Bruit, No Mass, Pelvis Stable (Female) Exam: Deferred Back Exam: Normal Inspection, Decreased Range of Motion, Other (Scoliosis) Extremities: Normal Inspection, Normal Range of Motion, Non-Tender, No Pedal Edema, Normal Capillary Refill Peripheral Pulses: 1+: Posterior Tibial (L), Posterior Tibial (R), Dorsalis Pedis (L), Dorsalis Pedis (R) Skin: Warm, Dry, Intact Wound/Incisions: Dressing Dry and Intact, No Drainage Neurological: No New Focal Deficit Psy/Mental Status: Other (Severe dementia, disoriented x 3). No: Alert ( responsive only to painful stimuli) - Problem List & Annotations (1) Fracture of neck of femur, hip SNOMED Code(s): 9149868 Code(s): S72.009A - FRACTURE OF UNSP PART OF NECK OF UNSP FEMUR, INIT Status: Acute Priority: High Current Visit: Yes (2) A-fib SNOMED Code(s): 36473925 Code(s): I48.91 - UNSPECIFIED ATRIAL FIBRILLATION Status: Chronic Priority: High Current Visit: Yes Qualifiers: Atrial fibrillation type: unspecified Qualified Code(s): I48.91 - Unspecified atrial fibrillation (3) Altered mental status SNOMED Code(s): 663265865 Code(s): R41.82 - ALTERED MENTAL STATUS, UNSPECIFIED Status: Acute Priority: High Current Visit: Yes Qualifiers: Altered mental status type: disorientation Qualified Code(s): R41.0 - Disorientation, unspecified (4) Severe dementia SNOMED Code(s): 77460102 Code(s): F03.90 - UNSPECIFIED DEMENTIA WITHOUT BEHAVIORAL DISTURBANCE Status: Chronic Priority: Medium Current Visit: Yes (5) Fall SNOMED Code(s): 0155928, 941443938 Code(s): W19.XXXA - UNSPECIFIED FALL, INITIAL ENCOUNTER Status: Acute Priority: High Current Visit: Yes Qualifiers: Encounter type: initial encounter Qualified Code(s): W19.XXXA - Unspecified fall, initial encounter (6) UTI (urinary tract infection) SNOMED Code(s): 07437755 Code(s): N39.0 - URINARY TRACT INFECTION, SITE NOT SPECIFIED Status: Acute Priority: High Current Visit: Yes Qualifiers: Urinary tract infection type: site unspecified Hematuria presence: without hematuria Qualified Code(s): N39.0 - Urinary tract infection, site not specified (7) Status post right hip replacement SNOMED Code(s): 943019974, 478883242, 279178854, 229731691 Code(s): Z96.641 - PRESENCE OF RIGHT ARTIFICIAL HIP JOINT Status: Acute Priority: High Current Visit: Yes - Problem List Review Problem List Initiated/Reviewed/Updated: Yes - My Orders Last 24 Hours: My Active Orders 08/24/17 05:11 BASIC METABOLIC PANEL,BMP [CHEM] AM C-REACTIVE PROTEIN [CHEM] AM CBC WITH AUTO DIFF [HEME] AM - Plan Plan:: I/P: Acute: S/P right total hip arthroplasty - post-operative day 1 -DVT prophylaxis and pain management per primary care team -PT/OT -IS/RT -Monitor oxygen saturation -Titrate oxygen as needed -Vital signs stable -Monitor labs -Pre-operative Hgb was 10.4--> 11.2 today UTI -U/A ordered in ED--> felton sensitive UTI -Low grade fever of 99.6 -Unable to get ROS due to dementia -Urinary catheter inserted in ED 2/2 fracture--> D/C today -Rocephin x48 hours-->start Keflex after 48 hours Altered Mental Status -Risk factors: h/o severe dementia, UTI -Responds only to pain stimuli today -Monitor -CM to talk to family about comfort care/end of life care Resolved: Right Femoral Neck Fx -Risk Factors: Dementia/Confusion, Difficulty ambulating, Osteoporosis/ Osteoarthritis -S/p unwitnessed fall at [facility] last evening; limited history 2/2 dementia -Hip Xray in ED--> Right Femoral Head Fx -Consult orthopedic surgeon Dr. Iglesias --> Will do surgery on Tuesday -Hold Eliquis until after surgery -Pain management PRN -May need a walker to prevent future falls, consult PT/OT Chronic: Dementia Osteoporosis/Osteoarthritis--> Pain management per primary care team GERD Hypothyroid Anxiety Hemorrhagic CVA Afib/Aflutter on --> HOLD ELIQUIS NOW UNTIL AFTER SURGERY HLD CHF HTN MVR Trigeminal neuralgia Plan: DVT prophylaxis R hip fracture repair--08/22/17 Other orders as indicated above Continue home medications as directed Routine AM labs NDD3 diet; Boost 90mL 6x per day ([facility] regimen) DVT Prophylaxis: SCD, NICO hose GI Prophylaxis: Pepcid PT/OT for discharge planning SW/CM consult for discharge planning Recommend SNF/Rehab for reconditioning Code Status: DNR/DNI--> COMFORT CARE ; PCP: Dr. Chand From [facility] Most likely D/C tomorrow back to [facility] PT HAS BEEN CHANGED BY POA TO COMFORT CARE MEASURES <Manjula Nesbitt T - Last Filed: 08/23/17 17:57> - Patient Data Vitals - Most Recent: Last Vital Signs Temp 37.6 C 08/23/17 12:25 Pulse 136 H 08/23/17 14:06 Resp 18 08/23/17 12:25 BP 178/136 H 08/23/17 14:06 Pulse Ox 81 L 08/23/17 12:25 I&O - Last 24 Hours: Intake & Output 08/23/17 08/23/17 08/23/17 06:59 14:59 22:59 Intake Total 925 0 Output Total 150 Balance 775 0 Lab Results Last 24 Hours: Laboratory Results - last 24 hr 08/23/17 08/23/17 08/23/17 Range/Units 06:40 06:40 06:40 WBC 10.69 H (3.98-10.04) K/mm3 RBC 3.72 L (3.98-5.22) M/mm3 Hgb 11.2 (11.2-15.7) gm/L Hct 36.7 (34.1-44.9) % MCV 98.7 H (79.4-94.8) fl MCH 30.1 (25.6-32.2) pg MCHC 30.5 L (32.2-35.5) g/dl RDW Std Deviation 57.9 H (36.4-46.3) fL Plt Count 147 L (182-369) K/mm3 MPV 11.2 (9.4-12.3) fl Neut % (Auto) 65.9 (34.0-71.1) % Lymph % (Auto) 13.2 L (19.3-51.7) % [place] % (Auto) 15.8 H (4.7-12.5) % Eos % (Auto) 3.8 (0.7-5.8) Baso % (Auto) 0.7 (0.1-1.2) % Neut # (Auto) 7.04 H (1.56-6.13) K/mm3 Lymph # (Auto) 1.41 (1.18-3.74) K/mm3 [place] # (Auto) 1.69 H (0.24-0.36) K/mm3 Eos # (Auto) 0.41 H (0.04-0.36) K/mm3 Baso # (Auto) 0.08 (0.01-0.08) K/mm3 Manual Slide Review Abnormal smear Sodium 146 H (136-145) mEq/L Potassium 4.9 (3.5-5.1) mEq/L Chloride 114 H (98-107) mEq/L Carbon Dioxide 22 (21-32) mEq/L Anion Gap 14.9 (5-15) BUN 46 H (7-18) mg/dL Creatinine 1.4 H (0.55-1.02) mg/dL Est Cr Clr Drug Dosing 23.42 mL/min Estimated GFR (MDRD) 36 (>60) mL/min BUN/Creatinine Ratio 32.9 H (14-18) Glucose 93 (83-115) mg/dL Calcium 9.3 (8.5-10.1) mg/dL Magnesium 2.2 (1.8-2.4) mg/dl C-Reactive Protein 20.3 H* (<1.0) mg/dL Free T4 (0.76-1.46) ng/dL TSH 3rd Generation (0.358-3.74) uIU/mL 08/23/17 Range/Units 06:40 WBC (3.98-10.04) K/mm3 RBC (3.98-5.22) M/mm3 Hgb (11.2-15.7) gm/L Hct (34.1-44.9) % MCV (79.4-94.8) fl MCH (25.6-32.2) pg MCHC (32.2-35.5) g/dl RDW Std Deviation (36.4-46.3) fL Plt Count (182-369) K/mm3 MPV (9.4-12.3) fl Neut % (Auto) (34.0-71.1) % Lymph % (Auto) (19.3-51.7) % [place] % (Auto) (4.7-12.5) % Eos % (Auto) (0.7-5.8) Baso % (Auto) (0.1-1.2) % Neut # (Auto) (1.56-6.13) K/mm3 Lymph # (Auto) (1.18-3.74) K/mm3 [place] # (Auto) (0.24-0.36) K/mm3 Eos # (Auto) (0.04-0.36) K/mm3 Baso # (Auto) (0.01-0.08) K/mm3 Manual Slide Review Sodium (136-145) mEq/L Potassium (3.5-5.1) mEq/L Chloride (98-107) mEq/L Carbon Dioxide (21-32) mEq/L Anion Gap (5-15) BUN (7-18) mg/dL Creatinine (0.55-1.02) mg/dL Est Cr Clr Drug Dosing mL/min Estimated GFR (MDRD) (>60) mL/min BUN/Creatinine Ratio (14-18) Glucose (83-115) mg/dL Calcium (8.5-10.1) mg/dL Magnesium (1.8-2.4) mg/dl C-Reactive Protein (<1.0) mg/dL Free T4 0.81 (0.76-1.46) ng/dL TSH 3rd Generation 6.253 H (0.358-3.74) uIU/mL Med Orders - Current: Current Medications Acetaminophen (Tylenol) 650 mg PO Q4H PRN PRN Reason: Pain (Mild 1-3)/fever Artificial Tears (Isopto Tears 0.5% Ophth Soln) 0 ml EYEBOTH BID [facility] Last Admin: 08/23/17 09:01 Dose: 1 drop Bisacodyl (Dulcolax) 5 mg PO DAILY PRN PRN Reason: Constipation Diphenhydramine HCl (Benadryl) 12.5 mg IVPUSH Q6H PRN PRN Reason: pruritis Docusate Sodium (Colace) 100 mg PO BID PRN PRN Reason: Constipation Fentanyl (Duragesic) 12 mcg TRDERM Q72H [facility] Last Admin: 08/23/17 15:19 Dose: 12 mcg Hydromorphone HCl (Dilaudid) 0.25 mg IVPUSH Q6H PRN PRN Reason: Pain Last Admin: 08/23/17 15:40 Dose: 0.25 mg Promethazine HCl 6.25 mg/ (Sodium Chloride) 50.25 mls @ 100 mls/hr IV Q6H PRN PRN Reason: Nausea/Vomiting Sodium Chloride (Sodium Chloride 0.45%) 1,000 mls @ 75 mls/hr IV ASDIRECTED [facility] Last Admin: 08/23/17 16:46 Dose: 75 mls/hr Lorazepam (Ativan) 0.5 mg IVPUSH Q6H PRN PRN Reason: Anxiety Last Admin: 08/23/17 15:22 Dose: 0.5 mg Miscellaneous Information (Remove Patch) 1 ea TRDERM Q72H [facility] Last Admin: 08/23/17 12:50 Dose: 1 ea Miscellaneous Information (Remove Patch) 0 ea TRDERM Q72H [facility] Naloxone HCl (Narcan) 0.1 mg IVPUSH Q5M PRN PRN Reason: Oversedation Restasis Ophth Soln (Own Med) 0 drop EYEBOTH BID [facility] Last Admin: 08/23/17 09:00 Dose: 1 drop Ondansetron HCl (Zofran) 4 mg IVPUSH Q8H PRN PRN Reason: Nausea/Vomiting Last Admin: 08/20/17 12:21 Dose: 4 mg Oxycodone/Acetaminophen (Percocet 325-5 Mg) 0.5 tab PO Q4H PRN PRN Reason: Pain (moderate 4-6) Last Admin: 08/19/17 18:01 Dose: 0.5 tab Polyethylene Glycol (Miralax) 17 gm PO DAILY PRN PRN Reason: Constipation Promethazine HCl (Phenergan) 25 mg PO Q6H PRN PRN Reason: Nausea/Vomiting Sodium Chloride (Saline Flush) 10 ml FLUSH ASDIRECTED PRN PRN Reason: Keep Vein Open Discontinued Medications Apixaban (Eliquis) 2.5 mg PO BID [facility] Last Admin: 08/23/17 09:01 Dose: Not Given Bisacodyl (Dulcolax) 10 mg RECTAL ONETIME ONE Stop: 08/23/17 10:48 Last Admin: 08/23/17 10:55 Dose: 10 mg Bupivacaine HCl (Sensorcaine-Mpf 0.75%) Confirm Administered Dose 30 ml .ROUTE .STK-MED ONE Stop: 08/22/17 12:29 Bupivacaine HCl (Marcaine 0.25%) Confirm Administered Dose 30 ml .ROUTE .STK- MED ONE Stop: 08/22/17 12:32 Last Admin: 08/22/17 16:00 Dose: 30 ml Bupivacaine HCl/Epinephrine Bitart (Marcaine 0.25%/Epinephrine 1:200,000) Confirm Administered Dose 30 ml .ROUTE .STK-MED ONE Stop: 08/22/17 12:27 Carbamazepine (Tegretol Tab) 200 mg PO BID [facility] Last Admin: 08/23/17 09:03 Dose: Not Given Cefazolin Sodium (Ancef) Confirm Administered Dose 2 gm .ROUTE .STK-MED ONE Stop: 08/22/17 12:29 Last Admin: 08/22/17 15:55 Dose: 2 gm Cefazolin Sodium (Ancef) Confirm Administered Dose 2 gm .ROUTE .STK-MED ONE Stop: 08/22/17 12:31 Cholecalciferol (Vitamin D3) 2,000 units PO DAILY [facility] Last Admin: 08/23/17 09:03 Dose: Not Given Morphine Sulfate 8 mg/Epinephrine HCl 0.3 mg/Cefuroxime Sodium 750 mg/Ketorolac Tromethamine 30 mg/Sodium Chloride 27.9 ml 0 mg .XX ONETIME ONE Stop: 08/22/17 15:01 Last Admin: 08/23/17 08:04 Dose: Not Given Diltiazem HCl (Cardizem Cd) 120 mg PO DAILY [facility] Last Admin: 08/23/17 08:59 Dose: Not Given Enoxaparin Sodium (Lovenox) 30 mg SUBCUT DAILY [facility] Last Admin: 08/23/17 14:04 Dose: 30 mg Esmolol HCl (Esmolol) Confirm Administered Dose 200 mg .ROUTE .STK-MED ONE Stop: 08/22/17 14:34 Famotidine (Pepcid) 20 mg IVPUSH BID [facility] Famotidine (Pepcid) 20 mg PO BID [facility] Last Admin: 08/19/17 22:33 Dose: Not Given Famotidine (Pepcid) 20 mg PO DAILY [facility] Last Admin: 08/23/17 09:02 Dose: Not Given Fentanyl (Duragesic) 12 mcg TRDERM Q72H [facility] Last Admin: 08/23/17 12:59 Dose: Not Given Furosemide (Lasix) 20 mg PO ACDINNER [facility] Haloperidol Lactate (Haldol) 1 mg IVPUSH ONETIME ONE Stop: 08/20/17 02:08 Last Admin: 08/20/17 02:48 Dose: 1 mg Hydralazine HCl (Apresoline) 10 mg IVPUSH Q4H PRN PRN Reason: Hypertension Hydralazine HCl (Apresoline) 10 mg IVPUSH Q8H PRN PRN Reason: Hypertension Hydralazine HCl (Apresoline) 20 mg IVPUSH Q8H PRN PRN Reason: Hypertension Hydralazine HCl (Apresoline) 20 mg IVPUSH Q6H PRN PRN Reason: Hypertension Hydromorphone HCl (Dilaudid) 0.25 mg IVPUSH ONETIME ONE Stop: 08/19/17 10:10 Last Admin: 08/19/17 10:13 Dose: 0.25 mg Hydromorphone HCl (Dilaudid) 0.25 mg IVPUSH ONETIME ONE Stop: 08/19/17 13:20 Last Admin: 08/19/17 13:24 Dose: 0.25 mg Hydromorphone HCl (Dilaudid) 0.25 mg IVPUSH Q2H PRN PRN Reason: Pain (severe 7-10) Last Admin: 08/20/17 01:45 Dose: 0.25 mg Hydromorphone HCl (Dilaudid) 1 mg IVPUSH Q6H PRN PRN Reason: Pain Last Admin: 08/23/17 01:57 Dose: 1 mg Hydromorphone HCl (Dilaudid) 0.5 mg IVPUSH ONETIME ONE Stop: 08/20/17 12:31 Last Admin: 08/20/17 14:52 Dose: Not Given Hydromorphone HCl (Dilaudid) Confirm Administered Dose 1 mg .ROUTE .STK-MED ONE Stop: 08/20/17 12:49 Last Admin: 08/20/17 12:57 Dose: 1 mg Sodium Chloride (Normal Saline) 1,000 mls @ 150 mls/hr IV ASDIRECTED MICHELLE Last Admin: 08/19/17 11:20 Dose: 150 mls/hr Ceftriaxone Sodium 2 gm/ (Sodium Chloride) 100 mls @ 100 mls/hr IV Q24H [facility] Stop: 08/21/17 18:01 Last Admin: 08/21/17 18:22 Dose: 100 mls/hr Diltiazem HCl 125 mg/ Sodium (Chloride) 125 mls @ 10 mls/hr IV TITRATE MICHELLE; Protocol Last Admin: 08/20/17 07:39 Dose: 5 mg/hr, 5 mls/hr Sodium Chloride (Normal Saline) 250 mls @ 999 mls/hr IV ONETIME ONE Stop: 08/20/17 02:30 Last Admin: 08/20/17 02:32 Dose: 999 mls/hr Sodium Chloride (Normal Saline) 1,000 mls @ 75 mls/hr IV ASDIRECTED MICHELLE Stop: 08/20/17 09:00 Last Admin: 08/20/17 03:00 Dose: 75 mls/hr Sodium Chloride (Normal Saline) Confirm Administered Dose 1,000 mls @ as directed .ROUTE .[facility]-MED ONE Stop: 08/20/17 02:24 Last Admin: 08/20/17 02:50 Dose: Not Given Dextrose/Sodium Chloride (Dextrose 5%-Normal Saline) 1,000 mls @ 100 mls/hr IV ASDIRECTED [facility] Last Admin: 08/20/17 12:39 Dose: 100 mls/hr Dextrose/Sodium Chloride (Dextrose 5%-Normal Saline) 1,000 mls @ 50 mls/hr IV ASDIRECTED [facility] Last Admin: 08/20/17 21:30 Dose: 50 mls/hr Cefazolin Sodium/Dextrose 2 gm (/ Premix) 50 mls @ 100 mls/hr IV Q8H [facility] Stop: 08/23/17 12:59 Last Admin: 08/23/17 12:49 Dose: 100 mls/hr Lidocaine HCl (Xylocaine-Mpf 1%) Confirm Administered Dose 2 mls @ as directed .ROUTE .ST-MED ONE Stop: 08/22/17 12:29 Lidocaine HCl (Xylocaine-Mpf 1%) Confirm Administered Dose 2 mls @ as directed .ROUTE .ST-MED ONE Stop: 08/22/17 12:29 Lactated Ringer's (Ringers, Lactated) Confirm Administered Dose 1,000 mls @ as directed .ROUTE .[facility]-MED ONE Stop: 08/22/17 15:54 Iodine (Iodine 2% Mild Tincture) Confirm Administered Dose 30 ml .ROUTE .ST- MED ONE Stop: 08/22/17 12:31 Last Admin: 08/22/17 15:52 Dose: 18 ml Levothyroxine Sodium (Synthroid) 88 mcg PO DAILY [facility] Last Admin: 08/23/17 09:03 Dose: Not Given Lisinopril (Prinivil) 5 mg PO DAILY [facility] Last Admin: 08/20/17 08:56 Dose: Not Given Lorazepam (Ativan) 0.5 mg IVPUSH Q8H PRN PRN Reason: Anxiety Last Admin: 08/22/17 21:57 Dose: 0.5 mg Magnesium Hydroxide (Milk Of Magnesia) 30 ml PO Q12H PRN PRN Reason: Constipation Metoprolol Tartrate (Lopressor) 50 mg PO BID [facility] Last Admin: 08/21/17 09:05 Dose: Not Given Metoprolol Tartrate (Lopressor) 5 mg IVPUSH Q6H PRN PRN Reason: Tachycardia Last Admin: 08/20/17 08:13 Dose: 5 mg Metoprolol Tartrate (Lopressor) 5 mg IVPUSH Q4H [facility] Last Admin: 08/23/17 08:58 Dose: 5 mg Metoprolol Tartrate (Lopressor) 50 mg PO TID [facility] Last Admin: 08/23/17 09:02 Dose: Not Given Metoprolol Tartrate (Lopressor) 75 mg PO Q12HR [facility] Metoprolol Tartrate (Lopressor) 5 mg IVPUSH Q4H PRN PRN Reason: Tachycardia Last Admin: 08/23/17 14:06 Dose: 5 mg Midazolam HCl (Versed 1 Mg/Ml) Confirm Administered Dose 2 mg .ROUTE .STK-MED ONE Stop: 08/22/17 12:29 Morphine Sulfate (Duramorph Pf) Confirm Administered Dose 10 mg .ROUTE .STK-MED ONE Stop: 08/22/17 14:02 Ondansetron HCl (Zofran) 4 mg IVPUSH ONETIME PRN PRN Reason: Nausea/Vomiting Phenylephrine HCl (Phenylephrine In Ns 100 Mcg/Ml) Confirm Administered Dose 1 mg .ROUTE .STK-MED ONE Stop: 08/22/17 15:00 Propofol (Diprivan 20 Ml) Confirm Administered Dose 600 mg .ROUTE .STK-MED ONE Stop: 08/22/17 12:29 Quetiapine Fumarate (Seroquel) 50 mg PO BEDTIME [facility] Last Admin: 08/23/17 00:49 Dose: Not Given Senna/Docusate Sodium (Senna Plus) 1 tab PO BID PRN PRN Reason: Constipation Simvastatin (Zocor) 20 mg PO BEDTIME [facility] Last Admin: 08/23/17 00:49 Dose: Not Given Sodium Chloride (Saline Flush) 10 ml FLUSH ASDIRECTED PRN PRN Reason: Keep Vein Open Last Admin: 08/19/17 10:14 Dose: 10 ml Temazepam (Restoril) 7.5 mg PO BEDTIME PRN PRN Reason: Sleep Tranexamic Acid (Cyklokapron) Confirm Administered Dose 1,000 mg .ROUTE .STK- MED ONE Stop: 08/22/17 12:31 Last Admin: 08/22/17 16:01 Dose: 1,000 mg Vancomycin HCl (Vancomycin) Confirm Administered Dose 1 gm .ROUTE .STK-MED ONE Stop: 08/22/17 12:31 Last Admin: 08/22/17 16:00 Dose: 1 gm - Problem List Review Problem List Initiated/Reviewed/Updated: Yes - My Orders Last 24 Hours: My Active Orders 08/23/17 13:01 HYDROmorphone [Dilaudid] 0.25 mg IVPUSH Q6H PRN 08/23/17 14:39 Code Status [Resuscitation Status] Routine 08/23/17 14:51 LORazepam [Ativan] 0.5 mg IVPUSH Q6H PRN 08/23/17 15:00 fentaNYL [Duragesic] 12 mcg TRDERM Q72H 08/26/17 15:00 Remove Patch 0 ea TRDERM Q72H - Plan Plan:: Spoke to family members at bedside including daughter (DPVIDA) updated them about her clinical progress. They are aware she is not doing well and they all want her to be made comfortable. Patient is not able to consent at this time due to altered MS. End of life care was activated-DNR/DNI/Comfort measures. Family wants O2, IV fluids and Comfort Measures Medications. No labs, routine vitals checks, telemetry and routine home medications. She will be d/c'd in AM back to the NH.
[2017-08-23] MEDS ORDERED: Bisacodyl 10 MG Supp RECTAL ONE (10:47)
--- NOTE | 2017-08-23 11:52 | PCM48HPAN ---
Post Anesthesia Note - EVALUATION WITHIN 48HRS OF ANESTHETIC Vital Signs in Normal Range: Yes Patient Participated in Evaluation: No Respiratory Function Stable: Yes Airway Patent: Yes Cardiovascular Function Stable: Yes Hydration Status Stable: Yes Pain Control Satisfactory: Yes Nausea and Vomiting Control Satisfactory: Yes Mental Status Recovered: Yes - COMMENTS/OBSERVATIONS Free Text/Narrative:: Patient has severe dementia. sleeping and appears comfortable today.
[2017-08-23] MEDS ORDERED: Metoprolol Tartrate 5 MG/5 ML SDV IVPUSH PRN (12:19)
[2017-08-23] MEDS: fentaNYL 12 MCG/HR Transdermal Patch TRDERM SCH (12:59)
[2017-08-23] MEDS ORDERED: HYDROmorphone 0.5 MG/0.5 ML SYRINGE IVPUSH PRN (13:01)
[2017-08-23] MEDS ORDERED: Enoxaparin 30 MG/0.3 ML Syringe SUBCUT SCH (13:30)
[2017-08-23 14:17] VITALS: BP 178/136
[2017-08-23] MEDS ORDERED: LORazepam 2 MG/ML SDV IVPUSH PRN ×2 (14:51→18:00)
--- NOTE | 2017-08-23 14:57 | PCM.DCSUM1 ---
<Mana Sena - Last Filed: 08/24/17 14:15> Discharge Summary - Hospital Course HPI Initial Comments: 87-year-old female has been brought to the emergency department by ambulance from [facility] for evaluation of right hip discomfort. She fell last evening. Circumstances of her fall are not known but she does have dementia , she normally walks only with assistance but she does tend according to her daughter get up and try on her own at times. She was noted to be having some hip discomfort last evening but it was not felt to be severe. Monitor to the night. She continued to have hip discomfort this morning and now transferred to ED at this time. Because of her dementia patient is not able to give any meaningful history as to what happened and her responses even to yes and no questions are very limited. Therefore history obtained is primarily from EMS. The [facility] staff did not call report. As needed with the patient's daughter and she does give further history regarding baseline patient's status. - Discharge Data Discharge Date: 08/24/17 (ADMIT 08/19/17) Discharge Disposition: DC/Tfer to SNF 03 Condition: Fair - Discharge Diagnosis/Problem(s) (1) Fracture of neck of femur, hip SNOMED Code(s): 4776172 ICD Code: S72.009A - FRACTURE OF UNSP PART OF NECK OF UNSP FEMUR, INIT Status: Resolved Priority: High (2) A-fib SNOMED Code(s): 71032010 ICD Code: I48.91 - UNSPECIFIED ATRIAL FIBRILLATION Status: Chronic Priority: High Qualifiers: Atrial fibrillation type: unspecified Qualified Code(s): I48.91 - Unspecified atrial fibrillation (3) Altered mental status SNOMED Code(s): 123544025 ICD Code: R41.82 - ALTERED MENTAL STATUS, UNSPECIFIED Status: Acute Priority: High Qualifiers: Altered mental status type: disorientation Qualified Code(s): R41.0 - Disorientation, unspecified (4) Severe dementia SNOMED Code(s): 77890257 ICD Code: F03.90 - UNSPECIFIED DEMENTIA WITHOUT BEHAVIORAL DISTURBANCE Status: Chronic Priority: Medium (5) Fall SNOMED Code(s): 7694635, 005833822 ICD Code: W19.XXXA - UNSPECIFIED FALL, INITIAL ENCOUNTER Status: Inactive Priority: High Qualifiers: Encounter type: initial encounter Qualified Code(s): W19.XXXA - Unspecified fall, initial encounter (6) UTI (urinary tract infection) SNOMED Code(s): 43699972 ICD Code: N39.0 - URINARY TRACT INFECTION, SITE NOT SPECIFIED Status: Acute Priority: High Qualifiers: Urinary tract infection type: site unspecified Hematuria presence: without hematuria Qualified Code(s): N39.0 - Urinary tract infection, site not specified (7) Status post right hip replacement SNOMED Code(s): 497251000, 416293986, 611299495, 417439218 ICD Code: Z96.641 - PRESENCE OF RIGHT ARTIFICIAL HIP JOINT Status: Acute Priority: High - Patient Summary/Data Operative Procedure(s) Performed: Right ERNST by Dr. Iglesias Complications: none Consults: Consultations 08/19/17 15:57 Consult to Physician [CONS] Routine 08/19/17 17:07 Consult to Occupational Therapy [OT Evaluation and Treatment] [CONS] Routine PT Evaluation and Treatment [CONS] Routine Labs Pending at D/C: none Recommended Follow-up Testing/Procedures: Pt is now comfort care measures, can follow up with PCP Dr. Chand if desired in 7 -10 days. Planned Operative Procedure(s) after DC: none Hospital Course: I/P: Acute: S/P right total hip arthroplasty - post-operative day 2 -DVT prophylaxis and pain management per primary care team -PT/OT -IS/RT -Monitor oxygen saturation -Titrate oxygen as needed -Vital signs stable -Monitor labs -Pre-operative Hgb was 10.4--> 11.2 UTI -U/A ordered in ED--> felton sensitive UTI -Low grade fever of 99.6 -Unable to get ROS due to dementia -Urinary catheter inserted in ED 2/2 fracture--> D/C today -Rocephin x48 hours-->start Keflex after 48 hours Altered Mental Status -Risk factors: h/o severe dementia, UTI -Responds only to pain stimuli today -Monitor -CM to talk to family about comfort care/end of life care Resolved: Right Femoral Neck Fx -Risk Factors: Dementia/Confusion, Difficulty ambulating, Osteoporosis/ Osteoarthritis -S/p unwitnessed fall at [facility] last evening; limited history 2/2 dementia -Hip Xray in ED--> Right Femoral Head Fx -Consult orthopedic surgeon Dr. Iglesias --> Will do surgery on Tuesday -Hold Eliquis until after surgery -Pain management PRN -May need a walker to prevent future falls, consult PT/OT Chronic: Dementia Osteoporosis/Osteoarthritis--> Pain management per primary care team GERD Hypothyroid Anxiety Hemorrhagic CVA Afib/Aflutter on Eliquis--> HOLD ELIQUIS NOW UNTIL AFTER SURGERY HLD CHF HTN MVR Trigeminal neuralgia Plan: DVT prophylaxis R hip fracture repair--08/22/17 Other orders as indicated above Continue home medications as directed Routine AM labs NDD3 diet; Boost 90mL 6x per day ([facility]'s regimen) DVT Prophylaxis: SCD, NICO hose GI Prophylaxis: Pepcid PT/OT for discharge planning SW/CM consult for discharge planning Recommend SNF/Rehab for reconditioning Code Status: DNR/DNI--> COMFORT CARE ; PCP: Dr. Chand From [facility] Most likely D/C tomorrow back to [facility] PT HAS BEEN CHANGED BY WALTER TO COMFORT CARE MEASURES After being admitted for R hip fracture, Chelsea had a R ERNST which is healing well. Unfortunately, her mental and physical status has been declining for months now and does not seem to be improving post-surgery as hoped by family and medical staff. She is now becoming increasingly agitated and has been refusing to eat/take medication. With her severe dementia it may also be very difficult to have her participate/follow commands for post surgery physical therapy rehabilitation. With these concomitant conditions, the prognosis right now is poor. After discussing this with family, WALTER has decided to go ahead with changing her code status from DNR/DNI to COMFORT MEASURES. She can follow- up with her primary care provider in 7-10 days, if desired. She will be discharged back to [facility] on comfort care medications only. Her previous home medications will be discontinued. She will be discharged back to [facility] today. - Patient Instructions Diet: Usual Diet as Tolerated Activity: As Tolerated Driving: Do Not Drive Showering/Bathing: May Shower Wound/Incision Care: Keep Operative Site/Wound Site Clean and Dry, Change Dressing Daily Notify Provider of: Fever, Increased Pain, Swelling and Redness, Drainage, Nausea and/or Vomiting - Discharge Plan Prescriptions/Med Rec: fentaNYL [Duragesic] 12 mcg TRDERM Q72H #10 patch LORazepam [Ativan] 1 mg SL Q4H PRN #10 mdv PRN Reason: Comfort Measures Med Morphine [Morphine 20 MG/ML Soln] 2.5 mg SL Q4H PRN #5 ml PRN Reason: Comfort Measures Med Home Medications: Home Meds LORazepam [Ativan] 1 mg SL Q4H PRN #10 mdv 08/24/17 [Rx] Morphine [Morphine 20 MG/ML Soln] 2.5 mg SL Q4H PRN #5 ml 08/24/17 [Rx] fentaNYL [Duragesic] 12 mcg TRDERM Q72H #10 patch 08/24/17 [Rx] Patient Handouts: Hip Fracture Treated With ORIF, Care After, and Dying, End-of-Life Care Referrals: Prince Chand MD [Primary Care Provider] - - Discharge Summary/Plan Comment DC Time >30 min.: Yes (40) - General Info Date of Service: 08/24/17 Admission Dx/Problem (Free Text: Admission Diagnosis/Problem Admission Diagnosis/Problem Hip fracture requiring operative repair Subjective Update: In to see Estelle today post-op day 2. She is lying in bed sleeping. Overall she is doing OK. In general, she has been extremely confused and has not able to follow commands. Pain seems to be controlled, but it is difficult to assess due to her severe dementia. She has been sleeping well. She hasn't been eating as she was NPO for surgery and was having N/V with clear liquids and has been refusing her medications- treating via IV now, D/C at discharge. No fever, chills, nausea, vomiting, diarrhea, CP, or SOB. No other concerns from nursing. Will be DCd back to [facility] today. PT HAS BEEN CHANGED TO COMFORT CARE- WILL D/C MOST OF HER MEDICATIONS TODAY EXCEPT FOR COMFORT CARE MEDICATIONS Functional Status: Reports: Pain Controlled - Review of Systems Neurological: Reports: Confusion (severe dementia; disoriented x3) Psychiatric: Reports: Confusion (severe dementia; disoriented x3) Systems Review Comment: Unable to attain due to severe dementia - Patient Data Vitals - Most Recent: Last Vital Signs Temp 99.7 F 08/23/17 12:25 Pulse 136 H 08/23/17 14:06 Resp 18 08/23/17 12:25 BP 178/136 H 08/23/17 14:06 Pulse Ox 81 L 08/23/17 12:25 Weight - Most Recent: 60.555 kg I&O - Last 24 hours: Intake & Output 08/22/17 08/23/17 08/23/17 22:59 06:59 14:59 Intake Total 811 925 0 Output Total 150 Balance 811 775 0 Lab Results - Last 24 hrs: Laboratory Results - last 24 hr 08/23/17 08/23/17 08/23/17 Range/Units 06:40 06:40 06:40 WBC 10.69 H (3.98-10.04) K/mm3 RBC 3.72 L (3.98-5.22) M/mm3 Hgb 11.2 (11.2-15.7) gm/L Hct 36.7 (34.1-44.9) % MCV 98.7 H (79.4-94.8) fl MCH 30.1 (25.6-32.2) pg MCHC 30.5 L (32.2-35.5) g/dl RDW Std Deviation 57.9 H (36.4-46.3) fL Plt Count 147 L (182-369) K/mm3 MPV 11.2 (9.4-12.3) fl Neut % (Auto) 65.9 (34.0-71.1) % Lymph % (Auto) 13.2 L (19.3-51.7) % [place] % (Auto) 15.8 H (4.7-12.5) % Eos % (Auto) 3.8 (0.7-5.8) Baso % (Auto) 0.7 (0.1-1.2) % Neut # (Auto) 7.04 H (1.56-6.13) K/mm3 Lymph # (Auto) 1.41 (1.18-3.74) K/mm3 [place] # (Auto) 1.69 H (0.24-0.36) K/mm3 Eos # (Auto) 0.41 H (0.04-0.36) K/mm3 Baso # (Auto) 0.08 (0.01-0.08) K/mm3 Manual Slide Review Abnormal smear Sodium 146 H (136-145) mEq/L Potassium 4.9 (3.5-5.1) mEq/L Chloride 114 H (98-107) mEq/L Carbon Dioxide 22 (21-32) mEq/L Anion Gap 14.9 (5-15) BUN 46 H (7-18) mg/dL Creatinine 1.4 H (0.55-1.02) mg/dL Est Cr Clr Drug Dosing 23.42 mL/min Estimated GFR (MDRD) 36 (>60) mL/min BUN/Creatinine Ratio 32.9 H (14-18) Glucose 93 (83-115) mg/dL Calcium 9.3 (8.5-10.1) mg/dL Magnesium 2.2 (1.8-2.4) mg/dl C-Reactive Protein 20.3 H* (<1.0) mg/dL Free T4 (0.76-1.46) ng/dL TSH 3rd Generation (0.358-3.74) uIU/mL 08/23/17 Range/Units 06:40 WBC (3.98-10.04) K/mm3 RBC (3.98-5.22) M/mm3 Hgb (11.2-15.7) gm/L Hct (34.1-44.9) % MCV (79.4-94.8) fl MCH (25.6-32.2) pg MCHC (32.2-35.5) g/dl RDW Std Deviation (36.4-46.3) fL Plt Count (182-369) K/mm3 MPV (9.4-12.3) fl Neut % (Auto) (34.0-71.1) % Lymph % (Auto) (19.3-51.7) % [place] % (Auto) (4.7-12.5) % Eos % (Auto) (0.7-5.8) Baso % (Auto) (0.1-1.2) % Neut # (Auto) (1.56-6.13) K/mm3 Lymph # (Auto) (1.18-3.74) K/mm3 [place] # (Auto) (0.24-0.36) K/mm3 Eos # (Auto) (0.04-0.36) K/mm3 Baso # (Auto) (0.01-0.08) K/mm3 Manual Slide Review Sodium (136-145) mEq/L Potassium (3.5-5.1) mEq/L Chloride (98-107) mEq/L Carbon Dioxide (21-32) mEq/L Anion Gap (5-15) BUN (7-18) mg/dL Creatinine (0.55-1.02) mg/dL Est Cr Clr Drug Dosing mL/min Estimated GFR (MDRD) (>60) mL/min BUN/Creatinine Ratio (14-18) Glucose (83-115) mg/dL Calcium (8.5-10.1) mg/dL Magnesium (1.8-2.4) mg/dl C-Reactive Protein (<1.0) mg/dL Free T4 0.81 (0.76-1.46) ng/dL TSH 3rd Generation 6.253 H (0.358-3.74) uIU/mL Med Orders - Current: Current Medications Acetaminophen (Tylenol) 650 mg PO Q4H PRN PRN Reason: Pain (Mild 1-3)/fever Artificial Tears (Isopto Tears 0.5% Ophth Soln) 0 ml EYEBOTH BID [facility] Last Admin: 08/23/17 09:01 Dose: 1 drop Bisacodyl (Dulcolax) 5 mg PO DAILY PRN PRN Reason: Constipation Diphenhydramine HCl (Benadryl) 12.5 mg IVPUSH Q6H PRN PRN Reason: pruritis Docusate Sodium (Colace) 100 mg PO BID PRN PRN Reason: Constipation Fentanyl (Duragesic) 12 mcg TRDERM Q72H [facility] Hydromorphone HCl (Dilaudid) 0.25 mg IVPUSH Q6H PRN PRN Reason: Pain Promethazine HCl 6.25 mg/ (Sodium Chloride) 50.25 mls @ 100 mls/hr IV Q6H PRN PRN Reason: Nausea/Vomiting Sodium Chloride (Sodium Chloride 0.45%) 1,000 mls @ 75 mls/hr IV ASDIRECTED [facility] Last Admin: 08/23/17 00:52 Dose: 75 mls/hr Lorazepam (Ativan) 0.5 mg IVPUSH Q6H PRN PRN Reason: Anxiety Miscellaneous Information (Remove Patch) 1 ea TRDERM Q72H [facility] Last Admin: 08/23/17 12:50 Dose: 1 ea Naloxone HCl (Narcan) 0.1 mg IVPUSH Q5M PRN PRN Reason: Oversedation Restasis Ophth Soln (Own Med) 0 drop EYEBOTH BID [facility] Last Admin: 08/23/17 09:00 Dose: 1 drop Ondansetron HCl (Zofran) 4 mg IVPUSH Q8H PRN PRN Reason: Nausea/Vomiting Last Admin: 08/20/17 12:21 Dose: 4 mg Oxycodone/Acetaminophen (Percocet 325-5 Mg) 0.5 tab PO Q4H PRN PRN Reason: Pain (moderate 4-6) Last Admin: 08/19/17 18:01 Dose: 0.5 tab Polyethylene Glycol (Miralax) 17 gm PO DAILY PRN PRN Reason: Constipation Promethazine HCl (Phenergan) 25 mg PO Q6H PRN PRN Reason: Nausea/Vomiting Sodium Chloride (Saline Flush) 10 ml FLUSH ASDIRECTED PRN PRN Reason: Keep Vein Open Discontinued Medications Apixaban (Eliquis) 2.5 mg PO BID [facility] Last Admin: 08/23/17 09:01 Dose: Not Given Bisacodyl (Dulcolax) 10 mg RECTAL ONETIME ONE Stop: 08/23/17 10:48 Last Admin: 08/23/17 10:55 Dose: 10 mg Bupivacaine HCl (Sensorcaine-Mpf 0.75%) Confirm Administered Dose 30 ml .ROUTE .STK-MED ONE Stop: 08/22/17 12:29 Bupivacaine HCl (Marcaine 0.25%) Confirm Administered Dose 30 ml .ROUTE .STK- MED ONE Stop: 08/22/17 12:32 Last Admin: 08/22/17 16:00 Dose: 30 ml Bupivacaine HCl/Epinephrine Bitart (Marcaine 0.25%/Epinephrine 1:200,000) Confirm Administered Dose 30 ml .ROUTE .STK-MED ONE Stop: 08/22/17 12:27 Carbamazepine (Tegretol Tab) 200 mg PO BID [facility] Last Admin: 08/23/17 09:03 Dose: Not Given Cefazolin Sodium (Ancef) Confirm Administered Dose 2 gm .ROUTE .[facility] ONE Stop: 08/22/17 12:29 Last Admin: 08/22/17 15:55 Dose: 2 gm Cefazolin Sodium (Ancef) Confirm Administered Dose 2 gm .ROUTE .[facility] ONE Stop: 08/22/17 12:31 Cholecalciferol (Vitamin D3) 2,000 units PO DAILY [facility] Last Admin: 08/23/17 09:03 Dose: Not Given Morphine Sulfate 8 mg/Epinephrine HCl 0.3 mg/Cefuroxime Sodium 750 mg/Ketorolac Tromethamine 30 mg/Sodium Chloride 27.9 ml 0 mg .XX ONETIME ONE Stop: 08/22/17 15:01 Last Admin: 08/23/17 08:04 Dose: Not Given Diltiazem HCl (Cardizem Cd) 120 mg PO DAILY [facility] Last Admin: 08/23/17 08:59 Dose: Not Given Enoxaparin Sodium (Lovenox) 30 mg SUBCUT DAILY [facility] Last Admin: 08/23/17 14:04 Dose: 30 mg Esmolol HCl (Esmolol) Confirm Administered Dose 200 mg .ROUTE .[facility] ONE Stop: 08/22/17 14:34 Famotidine (Pepcid) 20 mg IVPUSH BID [facility] Famotidine (Pepcid) 20 mg PO BID [facility] Last Admin: 08/19/17 22:33 Dose: Not Given Famotidine (Pepcid) 20 mg PO DAILY [facility] Last Admin: 08/23/17 09:02 Dose: Not Given Fentanyl (Duragesic) 12 mcg TRDERM Q72H [facility] Last Admin: 08/23/17 12:59 Dose: Not Given Furosemide (Lasix) 20 mg PO ACDINNER [facility] Haloperidol Lactate (Haldol) 1 mg IVPUSH ONETIME ONE Stop: 08/20/17 02:08 Last Admin: 08/20/17 02:48 Dose: 1 mg Hydralazine HCl (Apresoline) 10 mg IVPUSH Q4H PRN PRN Reason: Hypertension Hydralazine HCl (Apresoline) 10 mg IVPUSH Q8H PRN PRN Reason: Hypertension Hydralazine HCl (Apresoline) 20 mg IVPUSH Q8H PRN PRN Reason: Hypertension Hydralazine HCl (Apresoline) 20 mg IVPUSH Q6H PRN PRN Reason: Hypertension Hydromorphone HCl (Dilaudid) 0.25 mg IVPUSH ONETIME ONE Stop: 08/19/17 10:10 Last Admin: 08/19/17 10:13 Dose: 0.25 mg Hydromorphone HCl (Dilaudid) 0.25 mg IVPUSH ONETIME ONE Stop: 08/19/17 13:20 Last Admin: 08/19/17 13:24 Dose: 0.25 mg Hydromorphone HCl (Dilaudid) 0.25 mg IVPUSH Q2H PRN PRN Reason: Pain (severe 7-10) Last Admin: 08/20/17 01:45 Dose: 0.25 mg Hydromorphone HCl (Dilaudid) 1 mg IVPUSH Q6H PRN PRN Reason: Pain Last Admin: 08/23/17 01:57 Dose: 1 mg Hydromorphone HCl (Dilaudid) 0.5 mg IVPUSH ONETIME ONE Stop: 08/20/17 12:31 Last Admin: 08/20/17 14:52 Dose: Not Given Hydromorphone HCl (Dilaudid) Confirm Administered Dose 1 mg .ROUTE .STK-MED ONE Stop: 08/20/17 12:49 Last Admin: 08/20/17 12:57 Dose: 1 mg Sodium Chloride (Normal Saline) 1,000 mls @ 150 mls/hr IV ASDIRECTED [facility] Last Admin: 08/19/17 11:20 Dose: 150 mls/hr Ceftriaxone Sodium 2 gm/ (Sodium Chloride) 100 mls @ 100 mls/hr IV Q24H MICHELLE Stop: 08/21/17 18:01 Last Admin: 08/21/17 18:22 Dose: 100 mls/hr Diltiazem HCl 125 mg/ Sodium (Chloride) 125 mls @ 10 mls/hr IV TITRATE MICHELLE; Protocol Last Admin: 08/20/17 07:39 Dose: 5 mg/hr, 5 mls/hr Sodium Chloride (Normal Saline) 250 mls @ 999 mls/hr IV ONETIME ONE Stop: 08/20/17 02:30 Last Admin: 08/20/17 02:32 Dose: 999 mls/hr Sodium Chloride (Normal Saline) 1,000 mls @ 75 mls/hr IV ASDIRECTED [facility] Stop: 08/20/17 09:00 Last Admin: 08/20/17 03:00 Dose: 75 mls/hr Sodium Chloride (Normal Saline) Confirm Administered Dose 1,000 mls @ as directed .ROUTE .STK-MED ONE Stop: 08/20/17 02:24 Last Admin: 08/20/17 02:50 Dose: Not Given Dextrose/Sodium Chloride (Dextrose 5%-Normal Saline) 1,000 mls @ 100 mls/hr IV ASDIRECTED [facility] Last Admin: 08/20/17 12:39 Dose: 100 mls/hr Dextrose/Sodium Chloride (Dextrose 5%-Normal Saline) 1,000 mls @ 50 mls/hr IV ASDIRECTED [facility] Last Admin: 08/20/17 21:30 Dose: 50 mls/hr Cefazolin Sodium/Dextrose 2 gm (/ Premix) 50 mls @ 100 mls/hr IV Q8H [facility] Stop: 08/23/17 12:59 Last Admin: 08/23/17 12:49 Dose: 100 mls/hr Lidocaine HCl (Xylocaine-Mpf 1%) Confirm Administered Dose 2 mls @ as directed .ROUTE .STK-MED ONE Stop: 08/22/17 12:29 Lidocaine HCl (Xylocaine-Mpf 1%) Confirm Administered Dose 2 mls @ as directed .ROUTE .STK-MED ONE Stop: 08/22/17 12:29 Lactated Ringer's (Ringers, Lactated) Confirm Administered Dose 1,000 mls @ as directed .ROUTE .STK-MED ONE Stop: 08/22/17 15:54 Iodine (Iodine 2% Mild Tincture) Confirm Administered Dose 30 ml .ROUTE .STK- MED ONE Stop: 08/22/17 12:31 Last Admin: 08/22/17 15:52 Dose: 18 ml Levothyroxine Sodium (Synthroid) 88 mcg PO DAILY [facility] Last Admin: 08/23/17 09:03 Dose: Not Given Lisinopril (Prinivil) 5 mg PO DAILY [facility] Last Admin: 08/20/17 08:56 Dose: Not Given Lorazepam (Ativan) 0.5 mg IVPUSH Q8H PRN PRN Reason: Anxiety Last Admin: 08/22/17 21:57 Dose: 0.5 mg Magnesium Hydroxide (Milk Of Magnesia) 30 ml PO Q12H PRN PRN Reason: Constipation Metoprolol Tartrate (Lopressor) 50 mg PO BID [facility] Last Admin: 08/21/17 09:05 Dose: Not Given Metoprolol Tartrate (Lopressor) 5 mg IVPUSH Q6H PRN PRN Reason: Tachycardia Last Admin: 08/20/17 08:13 Dose: 5 mg Metoprolol Tartrate (Lopressor) 5 mg IVPUSH Q4H [facility] Last Admin: 08/23/17 08:58 Dose: 5 mg Metoprolol Tartrate (Lopressor) 50 mg PO TID [facility] Last Admin: 08/23/17 09:02 Dose: Not Given Metoprolol Tartrate (Lopressor) 75 mg PO Q12HR [facility] Metoprolol Tartrate (Lopressor) 5 mg IVPUSH Q4H PRN PRN Reason: Tachycardia Last Admin: 08/23/17 14:06 Dose: 5 mg Midazolam HCl (Versed 1 Mg/Ml) Confirm Administered Dose 2 mg .ROUTE .STK-MED ONE Stop: 08/22/17 12:29 Morphine Sulfate (Duramorph Pf) Confirm Administered Dose 10 mg .ROUTE .STK-MED ONE Stop: 08/22/17 14:02 Ondansetron HCl (Zofran) 4 mg IVPUSH ONETIME PRN PRN Reason: Nausea/Vomiting Phenylephrine HCl (Phenylephrine In Ns 100 Mcg/Ml) Confirm Administered Dose 1 mg .ROUTE .STK-MED ONE Stop: 08/22/17 15:00 Propofol (Diprivan 20 Ml) Confirm Administered Dose 600 mg .ROUTE .STK-MED ONE Stop: 08/22/17 12:29 Quetiapine Fumarate (Seroquel) 50 mg PO BEDTIME [facility] Last Admin: 08/23/17 00:49 Dose: Not Given Senna/Docusate Sodium (Senna Plus) 1 tab PO BID PRN PRN Reason: Constipation Simvastatin (Zocor) 20 mg PO BEDTIME [facility] Last Admin: 08/23/17 00:49 Dose: Not Given Sodium Chloride (Saline Flush) 10 ml FLUSH ASDIRECTED PRN PRN Reason: Keep Vein Open Last Admin: 08/19/17 10:14 Dose: 10 ml Temazepam (Restoril) 7.5 mg PO BEDTIME PRN PRN Reason: Sleep Tranexamic Acid (Cyklokapron) Confirm Administered Dose 1,000 mg .ROUTE .STK- MED ONE Stop: 08/22/17 12:31 Last Admin: 08/22/17 16:01 Dose: 1,000 mg Vancomycin HCl (Vancomycin) Confirm Administered Dose 1 gm .ROUTE .STK-MED ONE Stop: 08/22/17 12:31 Last Admin: 08/22/17 16:00 Dose: 1 gm - Exam Quality Assessment: Reports: Supplemental Oxygen, DVT Prophylaxis. Denies: Urine Catheter General: Denies: Alert, Oriented (severe dementia; disoriented x3) HEENT: Reports: Pupils Equal, Pupils Reactive, EOMI, Mucous Membr. Moist/[place] Neck: Reports: Supple Lungs: Reports: Clear to Auscultation, Normal Respiratory Effort Cardiovascular: Reports: Regular Rate, Regular Rhythm GI/Abdominal Exam: Normal Bowel Sounds, Soft, Non-Tender, No Organomegaly, No Distention, No Abnormal Bruit, No Mass, Pelvis Stable (Female) Exam: Deferred Rectal (Female) Exam: Deferred Back Exam: Reports: Normal Inspection, Decreased Range of Motion, Other ( scoliosis) Extremities: Normal Inspection, Non-Tender, No Pedal Edema, Normal Capillary Refill, Limited Range of Motion (s/p R ERNST) Skin: Reports: Warm, Dry, Intact Wound/Incisions: Reports: Healing Well, Dressing Dry and Intact, No Drainage Neurological: Reports: No New Focal Deficit Psy/Mental Status: Denies: Alert (severe dementia; disoriented x3) <Manjula Nesbitt T - Last Filed: 08/24/17 14:31> Discharge Summary - Discharge Diagnosis/Problem(s) (1) Altered mental status SNOMED Code(s): 527533357 ICD Code: R41.82 - ALTERED MENTAL STATUS, UNSPECIFIED Status: Acute Priority: High Qualifiers: Altered mental status type: disorientation Qualified Code(s): R41.0 - Disorientation, unspecified (2) Fall SNOMED Code(s): 7059858, 796782572 ICD Code: W19.XXXA - UNSPECIFIED FALL, INITIAL ENCOUNTER Status: Inactive Priority: High Qualifiers: Encounter type: initial encounter Qualified Code(s): W19.XXXA - Unspecified fall, initial encounter (3) Fracture of neck of femur, hip SNOMED Code(s): 6069835 ICD Code: S72.009A - FRACTURE OF UNSP PART OF NECK OF UNSP FEMUR, INIT Status: Resolved Priority: High (4) Status post right hip replacement SNOMED Code(s): 005504550, 494471650, 093026235, 939007601 ICD Code: Z96.641 - PRESENCE OF RIGHT ARTIFICIAL HIP JOINT Status: Acute Priority: High (5) Severe dementia SNOMED Code(s): 91517673 ICD Code: F03.90 - UNSPECIFIED DEMENTIA WITHOUT BEHAVIORAL DISTURBANCE Status: Chronic Priority: Medium (6) A-fib SNOMED Code(s): 56214787 ICD Code: I48.91 - UNSPECIFIED ATRIAL FIBRILLATION Status: Chronic Priority: High Qualifiers: Atrial fibrillation type: unspecified Qualified Code(s): I48.91 - Unspecified atrial fibrillation (7) End of life care SNOMED Code(s): 996882537, 709036753 ICD Code: Z51.5 - ENCOUNTER FOR PALLIATIVE CARE Status: Acute - Patient Summary/Data Consults: Consultations 08/19/17 15:57 Consult to Physician [CONS] Routine 08/19/17 17:07 PT Evaluation and Treatment [CONS] Routine - Patient Data Vitals - Most Recent: Last Vital Signs Temp 37.6 C 08/23/17 12:25 Pulse 136 H 08/23/17 14:06 Resp 18 08/23/17 12:25 BP 178/136 H 08/23/17 14:06 Pulse Ox 81 L 08/23/17 12:25 I&O - Last 24 hours: Intake & Output 08/23/17 08/24/17 08/24/17 22:59 06:59 14:59 Intake Total 813 716 0 Balance 813 716 0 Med Orders - Current: Current Medications Discontinued Medications Acetaminophen (Tylenol) 650 mg PO Q4H PRN PRN Reason: Pain (Mild 1-3)/fever Apixaban (Eliquis) 2.5 mg PO BID [facility] Last Admin: 08/23/17 09:01 Dose: Not Given Artificial Tears (Isopto Tears 0.5% Ophth Soln) 0 ml EYEBOTH BID [facility] Last Admin: 08/24/17 08:12 Dose: 1 drop Bisacodyl (Dulcolax) 5 mg PO DAILY PRN PRN Reason: Constipation Bisacodyl (Dulcolax) 10 mg RECTAL ONETIME ONE Stop: 08/23/17 10:48 Last Admin: 08/23/17 10:55 Dose: 10 mg Bupivacaine HCl (Sensorcaine-Mpf 0.75%) Confirm Administered Dose 30 ml .ROUTE .STK-MED ONE Stop: 08/22/17 12:29 Bupivacaine HCl (Marcaine 0.25%) Confirm Administered Dose 30 ml .ROUTE .STK- MED ONE Stop: 08/22/17 12:32 Last Admin: 08/22/17 16:00 Dose: 30 ml Bupivacaine HCl/Epinephrine Bitart (Marcaine 0.25%/Epinephrine 1:200,000) Confirm Administered Dose 30 ml .ROUTE .STK-MED ONE Stop: 08/22/17 12:27 Carbamazepine (Tegretol Tab) 200 mg PO BID [facility] Last Admin: 08/23/17 09:03 Dose: Not Given Cefazolin Sodium (Ancef) Confirm Administered Dose 2 gm .ROUTE .STK-MED ONE Stop: 08/22/17 12:29 Last Admin: 08/22/17 15:55 Dose: 2 gm Cefazolin Sodium (Ancef) Confirm Administered Dose 2 gm .ROUTE .STK-MED ONE Stop: 08/22/17 12:31 Cholecalciferol (Vitamin D3) 2,000 units PO DAILY [facility] Last Admin: 08/23/17 09:03 Dose: Not Given Morphine Sulfate 8 mg/Epinephrine HCl 0.3 mg/Cefuroxime Sodium 750 mg/Ketorolac Tromethamine 30 mg/Sodium Chloride 27.9 ml 0 mg .XX ONETIME ONE Stop: 08/22/17 15:01 Last Admin: 08/23/17 08:04 Dose: Not Given Diltiazem HCl (Cardizem Cd) 120 mg PO DAILY [facility] Last Admin: 08/23/17 08:59 Dose: Not Given Diphenhydramine HCl (Benadryl) 12.5 mg IVPUSH Q6H PRN PRN Reason: pruritis Docusate Sodium (Colace) 100 mg PO BID PRN PRN Reason: Constipation Enoxaparin Sodium (Lovenox) 30 mg SUBCUT DAILY [facility] Last Admin: 08/23/17 14:04 Dose: 30 mg Esmolol HCl (Esmolol) Confirm Administered Dose 200 mg .ROUTE .STK-MED ONE Stop: 08/22/17 14:34 Famotidine (Pepcid) 20 mg IVPUSH BID [facility] Famotidine (Pepcid) 20 mg PO BID [facility] Last Admin: 08/19/17 22:33 Dose: Not Given Famotidine (Pepcid) 20 mg PO DAILY [facility] Last Admin: 08/23/17 09:02 Dose: Not Given Fentanyl (Duragesic) 12 mcg TRDERM Q72H [facility] Last Admin: 08/23/17 12:59 Dose: Not Given Fentanyl (Duragesic) 12 mcg TRDERM Q72H [facility] Last Admin: 08/23/17 15:19 Dose: 12 mcg Furosemide (Lasix) 20 mg PO ACDINNER [facility] Haloperidol Lactate (Haldol) 1 mg IVPUSH ONETIME ONE Stop: 08/20/17 02:08 Last Admin: 08/20/17 02:48 Dose: 1 mg Hydralazine HCl (Apresoline) 10 mg IVPUSH Q4H PRN PRN Reason: Hypertension Hydralazine HCl (Apresoline) 10 mg IVPUSH Q8H PRN PRN Reason: Hypertension Hydralazine HCl (Apresoline) 20 mg IVPUSH Q8H PRN PRN Reason: Hypertension Hydralazine HCl (Apresoline) 20 mg IVPUSH Q6H PRN PRN Reason: Hypertension Hydromorphone HCl (Dilaudid) 0.25 mg IVPUSH ONETIME ONE Stop: 08/19/17 10:10 Last Admin: 08/19/17 10:13 Dose: 0.25 mg Hydromorphone HCl (Dilaudid) 0.25 mg IVPUSH ONETIME ONE Stop: 08/19/17 13:20 Last Admin: 08/19/17 13:24 Dose: 0.25 mg Hydromorphone HCl (Dilaudid) 0.25 mg IVPUSH Q2H PRN PRN Reason: Pain (severe 7-10) Last Admin: 08/20/17 01:45 Dose: 0.25 mg Hydromorphone HCl (Dilaudid) 1 mg IVPUSH Q6H PRN PRN Reason: Pain Last Admin: 08/23/17 01:57 Dose: 1 mg Hydromorphone HCl (Dilaudid) 0.5 mg IVPUSH ONETIME ONE Stop: 08/20/17 12:31 Last Admin: 08/20/17 14:52 Dose: Not Given Hydromorphone HCl (Dilaudid) Confirm Administered Dose 1 mg .ROUTE .STK-MED ONE Stop: 08/20/17 12:49 Last Admin: 08/20/17 12:57 Dose: 1 mg Hydromorphone HCl (Dilaudid) 0.25 mg IVPUSH Q6H PRN PRN Reason: Pain Last Admin: 08/23/17 15:40 Dose: 0.25 mg Hydromorphone HCl (Dilaudid) 0.5 mg IVPUSH ONETIME ONE Stop: 08/23/17 17:42 Last Admin: 08/23/17 18:34 Dose: 0.5 mg Hydromorphone HCl (Dilaudid) 1 mg IVPUSH Q4H PRN PRN Reason: Pain Last Admin: 08/24/17 04:01 Dose: 1 mg Hydromorphone HCl (Dilaudid) 1 mg IVPUSH Q4H PRN PRN Reason: Pain Sodium Chloride (Normal Saline) 1,000 mls @ 150 mls/hr IV ASDIRECTED [facility] Last Admin: 08/19/17 11:20 Dose: 150 mls/hr Promethazine HCl 6.25 mg/ (Sodium Chloride) 50.25 mls @ 100 mls/hr IV Q6H PRN PRN Reason: Nausea/Vomiting Ceftriaxone Sodium 2 gm/ (Sodium Chloride) 100 mls @ 100 mls/hr IV Q24H [facility] Stop: 08/21/17 18:01 Last Admin: 08/21/17 18:22 Dose: 100 mls/hr Diltiazem HCl 125 mg/ Sodium (Chloride) 125 mls @ 10 mls/hr IV TITRATE MICHELLE; Protocol Last Admin: 08/20/17 07:39 Dose: 5 mg/hr, 5 mls/hr Sodium Chloride (Normal Saline) 250 mls @ 999 mls/hr IV ONETIME ONE Stop: 08/20/17 02:30 Last Admin: 08/20/17 02:32 Dose: 999 mls/hr Sodium Chloride (Normal Saline) 1,000 mls @ 75 mls/hr IV ASDIRECTED [facility] Stop: 08/20/17 09:00 Last Admin: 08/20/17 03:00 Dose: 75 mls/hr Sodium Chloride (Normal Saline) Confirm Administered Dose 1,000 mls @ as directed .ROUTE .STK-MED ONE Stop: 08/20/17 02:24 Last Admin: 08/20/17 02:50 Dose: Not Given Dextrose/Sodium Chloride (Dextrose 5%-Normal Saline) 1,000 mls @ 100 mls/hr IV ASDIRECTED [facility] Last Admin: 08/20/17 12:39 Dose: 100 mls/hr Dextrose/Sodium Chloride (Dextrose 5%-Normal Saline) 1,000 mls @ 50 mls/hr IV ASDIRECTED [facility] Last Admin: 08/20/17 21:30 Dose: 50 mls/hr Sodium Chloride (Sodium Chloride 0.45%) 1,000 mls @ 75 mls/hr IV ASDIRECTED [facility] Last Admin: 08/24/17 06:32 Dose: 75 mls/hr Cefazolin Sodium/Dextrose 2 gm (/ Premix) 50 mls @ 100 mls/hr IV Q8H [facility] Stop: 08/23/17 12:59 Last Admin: 08/23/17 12:49 Dose: 100 mls/hr Lidocaine HCl (Xylocaine-Mpf 1%) Confirm Administered Dose 2 mls @ as directed .ROUTE .STK-MED ONE Stop: 08/22/17 12:29 Lidocaine HCl (Xylocaine-Mpf 1%) Confirm Administered Dose 2 mls @ as directed .ROUTE .STK-MED ONE Stop: 08/22/17 12:29 Lactated Ringer's (Ringers, Lactated) Confirm Administered Dose 1,000 mls @ as directed .ROUTE .STK-MED ONE Stop: 08/22/17 15:54 Iodine (Iodine 2% Mild Tincture) Confirm Administered Dose 30 ml .ROUTE .STK- MED ONE Stop: 08/22/17 12:31 Last Admin: 08/22/17 15:52 Dose: 18 ml Levothyroxine Sodium (Synthroid) 88 mcg PO DAILY [facility] Last Admin: 08/23/17 09:03 Dose: Not Given Lisinopril (Prinivil) 5 mg PO DAILY [facility] Last Admin: 08/20/17 08:56 Dose: Not Given Lorazepam (Ativan) 0.5 mg IVPUSH Q8H PRN PRN Reason: Anxiety Last Admin: 08/22/17 21:57 Dose: 0.5 mg Lorazepam (Ativan) 0.5 mg IVPUSH Q6H PRN PRN Reason: Anxiety Last Admin: 08/23/17 15:22 Dose: 0.5 mg Lorazepam (Ativan) 1 mg IVPUSH Q4H PRN PRN Reason: Anxiety Last Admin: 08/24/17 01:41 Dose: 1 mg Magnesium Hydroxide (Milk Of Magnesia) 30 ml PO Q12H PRN PRN Reason: Constipation Metoprolol Tartrate (Lopressor) 50 mg PO BID [facility] Last Admin: 08/21/17 09:05 Dose: Not Given Metoprolol Tartrate (Lopressor) 5 mg IVPUSH Q6H PRN PRN Reason: Tachycardia Last Admin: 08/20/17 08:13 Dose: 5 mg Metoprolol Tartrate (Lopressor) 5 mg IVPUSH Q4H [facility] Last Admin: 08/23/17 08:58 Dose: 5 mg Metoprolol Tartrate (Lopressor) 50 mg PO TID [facility] Last Admin: 08/23/17 09:02 Dose: Not Given Metoprolol Tartrate (Lopressor) 75 mg PO Q12HR [facility] Metoprolol Tartrate (Lopressor) 5 mg IVPUSH Q4H PRN PRN Reason: Tachycardia Last Admin: 08/23/17 14:06 Dose: 5 mg Midazolam HCl (Versed 1 Mg/Ml) Confirm Administered Dose 2 mg .ROUTE .STK-MED ONE Stop: 08/22/17 12:29 Miscellaneous Information (Remove Patch) 1 ea TRDERM Q72H [facility] Last Admin: 08/23/17 12:50 Dose: 1 ea Miscellaneous Information (Remove Patch) 0 ea TRDERM Q72H [facility] Morphine Sulfate (Duramorph Pf) Confirm Administered Dose 10 mg .ROUTE .STK-MED ONE Stop: 08/22/17 14:02 Naloxone HCl (Narcan) 0.1 mg IVPUSH Q5M PRN PRN Reason: Oversedation Restasis Ophth Soln (Own Med) 0 drop EYEBOTH BID [facility] Last Admin: 08/23/17 09:00 Dose: 1 drop Ondansetron HCl (Zofran) 4 mg IVPUSH Q8H PRN PRN Reason: Nausea/Vomiting Last Admin: 08/20/17 12:21 Dose: 4 mg Ondansetron HCl (Zofran) 4 mg IVPUSH ONETIME PRN PRN Reason: Nausea/Vomiting Oxycodone/Acetaminophen (Percocet 325-5 Mg) 0.5 tab PO Q4H PRN PRN Reason: Pain (moderate 4-6) Last Admin: 08/19/17 18:01 Dose: 0.5 tab Phenylephrine HCl (Phenylephrine In Ns 100 Mcg/Ml) Confirm Administered Dose 1 mg .ROUTE .STK-MED ONE Stop: 08/22/17 15:00 Polyethylene Glycol (Miralax) 17 gm PO DAILY PRN PRN Reason: Constipation Promethazine HCl (Phenergan) 25 mg PO Q6H PRN PRN Reason: Nausea/Vomiting Propofol (Diprivan 20 Ml) Confirm Administered Dose 600 mg .ROUTE .STK-MED ONE Stop: 08/22/17 12:29 Quetiapine Fumarate (Seroquel) 50 mg PO BEDTIME [facility] Last Admin: 08/23/17 00:49 Dose: Not Given Senna/Docusate Sodium (Senna Plus) 1 tab PO BID PRN PRN Reason: Constipation Simvastatin (Zocor) 20 mg PO BEDTIME [facility] Last Admin: 08/23/17 00:49 Dose: Not Given Sodium Chloride (Saline Flush) 10 ml FLUSH ASDIRECTED PRN PRN Reason: Keep Vein Open Last Admin: 08/19/17 10:14 Dose: 10 ml Sodium Chloride (Saline Flush) 10 ml FLUSH ASDIRECTED PRN PRN Reason: Keep Vein Open Temazepam (Restoril) 7.5 mg PO BEDTIME PRN PRN Reason: Sleep Tranexamic Acid (Cyklokapron) Confirm Administered Dose 1,000 mg .ROUTE .STK- MED ONE Stop: 08/22/17 12:31 Last Admin: 08/22/17 16:01 Dose: 1,000 mg Vancomycin HCl (Vancomycin) Confirm Administered Dose 1 gm .ROUTE .STK-MED ONE Stop: 08/22/17 12:31 Last Admin: 08/22/17 16:00 Dose: 1 gm
[2017-08-23] MEDS ORDERED: fentaNYL 12 MCG/HR Transdermal Patch TRDERM SCH (15:00)
[2017-08-23] MEDS ORDERED: HYDROmorphone 0.5 MG/0.5 ML SYRINGE IVPUSH ONE (17:41)
[2017-08-23] MEDS ORDERED: HYDROmorphone 1 MG/ML Syringe IVPUSH PRN (17:59)
[2017-08-23] MEDS ORDERED: Metoprolol Tartrate 50 MG Tab PO SCH (21:00)
[2017-08-24] MEDS ORDERED: HYDROmorphone 0.5 MG/0.5 ML SYRINGE IVPUSH PRN (04:12)
[2017-08-24] MEDS: Sodium Chloride 0.45% 1,000 ML IV SCH (06:32)
[2017-08-24] MEDS: Hypromellose 0.5% Ophth Soln 15 ML Bottle EYEBOTH SCH (08:12)
--- NOTE | 2017-08-29 07:01 | PCM.OPNOTE ---
- General Post-Op/Procedure Note Date of Surgery/Procedure: 08/22/17 Operative Procedure(s): right hip endoprosthesis Pre Op Diagnosis: right displaced femoral neck fracture Post-Op Diagnosis: Same Anesthesia Technique: Local, MAC, Spinal Primary Surgeon: Spencer Iglesias Anesthesia Provider: Mari Goodrich Application Security Developer: Farheen Wren Application Security Developer: Willa Ronquillo EBL in mLs: 200 Complications: None Condition: Fair Free Text/Narrative:: size 5 femur size 44 femoral head +5
--- NOTE | 2017-08-29 11:35 | OR ---
DATE OF OPERATION: 08/22/2017 SURGEON: Spencer Iglesias MD OPERATION PERFORMED: Right hip endoprosthesis. PREOPERATIVE DIAGNOSIS: Right displaced femoral neck fracture. POSTOPERATIVE DIAGNOSIS: Right displaced femoral neck fracture. ANESTHESIA: Local MAC with spinal. ANESTHESIA PROVIDER: Scotty Hardy. ASSISTANTS: 1. Farheen Wren PA-C. 2. Willa Ronquillo LPN. ESTIMATED BLOOD LOSS: 200 mL. COMPLICATIONS: None. CONDITION: Fair. IMPLANTS: 1. [place] size 5 cemented HFx femur. 2. Cat size 44 mm femoral head and +5 mm neck sleeve. DESCRIPTION OF PROCEDURE: The patient was identified in the preop holding area. Proper site was marked and identified by the surgeon. The patient was taken to the operative theater where, after adequate anesthesia, the patient was placed in a left lateral decubitus position. Axillary roll was placed. All bony prominences were well padded. Pegs were then placed and were well padded. The patient's hip was parallel to the floor. Right hip was then sterilely prepped and draped in the usual sterile fashion. OR time-out was performed. The patient received 2 g of IV Ancef. A standard posterior incision was centered over the greater trochanter. This was taken down to the IT band and gluteal fascia which was incised along the incisional length. Short external rotators were then identified, and takedown of the piriformis as well as the short external rotators was done to the level of the lesser trochanter. At this time, the fractured femoral neck and head were then removed, and a cleanup femoral neck cut was then completed. There were no loose or foreign bodies in the acetabulum. At this time, starting with a box chisel out laterally, starter awl was placed down the canal. Starting with the 0 broach, I was able to broach up to a size 5. At this time, though the patient did have significant weak bones, it was decided we would do a cement for the femur. At this time, the cement restrictor was placed down the canal. Cement was mixed on the back table. The size 5 HFx [place] stem was then opened, and when the cement was ready, the cement was placed down the canal after it had been irrigated, and the stem was then placed. At this time, we then trialed a 44 mm head, and it was found to be a small amount short, so we did 44 +5. This was then impacted into place on the stem after the cement had cured, and the hip was relocated. The patient's hip was stable throughout range of motion with no signs of dislocation or instability. At this time, #5 Ethibond was used for closure of the short external rotators and capsule. 1 L of dilute Betadine solution was irrigated through the hip along with 3 L of pulse lavage irrigation with Ancef. Topical tranexamic acid as well as vancomycin powder was placed. #2 barbed suture was used for closure of the IT band and gluteal fascia, 2-0 Vicryl was used subcutaneously, and Prineo was used for the skin. The patient tolerated the procedure well and was sent to the PACU in stable condition. VENANCIO /[id number]
== END 2017-08-24 11:00 | DRG 470 ==
LOC: JD.ED 09:54 → JD.MS 12:48 → UNDOADMIN 12:52 → JD.ICU 08-20 02:16 → JD.MS 08-20 09:41
PROVIDERS: ADMIT Internal Medicine Cardiovascular Disease; ATTEND Internal Medicine Cardiovascular Disease
PROC: 0SRR0J9 Replacement of Right Hip Joint, Femoral Surface with Synthetic Substitute, Cemented, Open Approach (ICD-10-PCS; principal; 2017-08-22)
DX: S72.001A Fracture of unspecified part of neck of right femur, initial encounter for closed fracture (principal); N39.0 Urinary tract infection, site not specified; I48.92 Unspecified atrial flutter; E78.5 Hyperlipidemia, unspecified; I11.0 Hypertensive heart disease with heart failure; I50.9 Heart failure, unspecified; I10 Essential (primary) hypertension; F03.90 Unspecified dementia, unspecified severity, without behavioral disturbance, psychotic disturbance, mood disturbance, and anxiety; W19.XXXA Unspecified fall, initial encounter; H54.7 Unspecified visual loss; I48.91 Unspecified atrial fibrillation; E78.00 Pure hypercholesterolemia, unspecified; I34.0 Nonrheumatic mitral (valve) insufficiency; K21.9 Gastro-esophageal reflux disease without esophagitis; M19.90 Unspecified osteoarthritis, unspecified site; M81.0 Age-related osteoporosis without current pathological fracture; M46.90 Unspecified inflammatory spondylopathy, site unspecified; G50.0 Trigeminal neuralgia; F41.9 Anxiety disorder, unspecified; E03.9 Hypothyroidism, unspecified; R41.82 Altered mental status, unspecified; M25.551 Pain in right hip; R41.0 Disorientation, unspecified; Z79.01 Long term (current) use of anticoagulants; Z88.1 Allergy status to other antibiotic agents; Z79.899 Other long term (current) drug therapy; Z86.73 Personal history of transient ischemic attack (TIA), and cerebral infarction without residual deficits; Z90.710 Acquired absence of both cervix and uterus; Z86.718 Personal history of other venous thrombosis and embolism; Z66 Do not resuscitate; Z51.5 Encounter for palliative care
CPT/HCPCS: 36415; 51702; 73502; 80053; 85025; 93005; 96361; 96374; 99285; J1170; J7040; J7050; 01230; 73501-26-RT; 73501-RT; 80048; 81001; 83735; 84439; 84443; 85610; 85730; 86140; 86850; 86900; 86901; 87641; 93010; 94760; 94762; 96376; 97140-GP; 97161-GP; 99284-25; A9270-GY; C1713; C1776; J0171; J0690; J0696; J0697; J1630; J1650; J1885; J2001; J2060; J2250; J2270; J2405; J2704; J3370; J3490; J7030; J7042; J7120